=== PATIENT | male | born 1965 | race American Indian/Alaskan Native ===

== ENCOUNTER 2017-02-27 16:59 | Emergency (ER) | payer MEDICARE ==
[~2017-02-27 16:59] MED LIST: AMIDATE IV ONE; QUELICIN ONE
--- NOTE | 2017-02-27 17:17 | Cat Scan Report ---
FINAL REPORT PROCEDURE: CT HEAD/BRAIN WO CON TECHNIQUE: Computerized tomography of the head was performed without contrast material. HISTORY: neuro deficits \T\lt; 6hrs or sx present upon awakening COMPARISON: No prior studies are available for comparison. FINDINGS: No CT evidence of intracranial mass, hemorrhage, acute territorial infarction, or hydrocephalus. The intracranial arteries are symmetric in density. Calvarium is intact. Visualized paranasal sinuses and mastoids are aerated. IMPRESSION: No CT evidence of acute abnormality
[2017-02-27] MEDS ORDERED: NORMODYNE IV ONE ×2 (17:20→17:23)
[2017-02-27 17:28] LABS: Basophils % (Auto) 1.1 % (0.0-1.8); Eosinophils % (Auto) 2.6 % (0.0-4.3); Hematocrit 44.9 % (35.5-45.6); Hemoglobin 14.6 gm/dl (11.8-15.2); Mean Corpuscular HGB Conc 33 % (32-34); Mean Corpuscular Hemoglobin 29 pg (28-32); Mean Corpuscular Volume 89 fl (84-94); Platelet Count 151 K/mm3 (140-440); Red Blood Count 5.05 M/mm3 (3.65-5.03); Red Cell Distribution Width 15.6 % (13.2-15.2); White Blood Count 8.5 K/mm3 (4.5-11.0)
--- NOTE | 2017-02-27 17:29 | Emergency Department Report ---
<JAGDISH PIÑA - Last Filed: 02/27/17 20:14> ED Neuro Deficit HPI - General Chief Complaint: Neuro Symptoms/Deficit Stated Complaint: POSS STROKE Time Seen by Provider: 02/27/17 17:19 Source: family, EMS Mode of arrival: Stretcher Limitations: Altered Mental Status - History of Present Illness Initial Comments: 51-year-old male with a past medical history CHF, CAD, artificial heart valve placement, diabetes, and hypertension presents to the hospital with acute stroke symptoms. states that for 20 p.m. patient has had onset of right arm, right leg weakness, difficulty speaking. Patient is able to nod and follow commands. He is unable to speak fluently and answers yes and no to most questions sometimes inappropriately. He denies any pain at this time. initially stated that patient had a history of a stroke during a recent admission here in January. Medical record reviewed and patient was evaluated for NSTEMI secondary to elevated troponin but had stable cardiac enzymes and a negative stress scan at that time. Patient was also treated for CHF/pulmonary edema. No neurologic workup was performed and no mention of CVA. - Related Data Home Medications: Previous Rx's Medication Instructions Recorded Last Taken Type Aspirin [Aspirin BABY CHEW TAB] 81 mg PO DAILY #30 08/20/13 01/15/17 08:00 Rx Carvedilol [Coreg] 25 mg PO BID #60 tablet 08/20/13 01/15/17 08:00 Rx Isosorbide Mononitrate [Isosorbide 30 mg PO DAILY #30 tab.er.24h 08/20/13 08:00 Rx Mononitrate ER] Furosemide [Lasix] 40 mg PO DAILY #30 tablet 09/17/13 01/15/17 08:00 Rx AtorvaSTATin [Lipitor] 80 mg PO QHS #30 tablet 01/19/17 Unknown Rx Docusate Sodium [Colace CAP] 100 mg PO BID #30 capsule 01/19/17 Unknown Rx hydrALAZINE [Apresoline TAB] 50 mg PO BID #60 tablet 01/19/17 Unknown Rx Allergies/Adverse Reactions: Allergies Allergy/AdvReac Type Severity Reaction Status Date / Time No Known Allergies Allergy Verified 01/15/17 20:55 ED Review of Systems ROS: Stated complaint: POSS STROKE Other details as noted in HPI Comment: Unobtainable due to pts medical conditions (Limited due to patient's inability to communicate) ED Past Medical Hx - Past Medical History Hx Hypertension: Yes Hx Heart Attack/AMI: Yes Hx Congestive Heart Failure: Yes Hx Diabetes: Yes Hx Deep Vein Thrombosis: No Hx Pulmonary Embolism: No Hx Liver Disease: No Hx Renal Disease: Yes (Stage 2) Hx Arthritis: No Hx Seizures: No Hx Kidney Stones: No Hx Asthma: No Hx COPD: No Hx Tuberculosis: No Hx Dementia: No Hx HIV: No Additional medical history: gout neuorpathy edema - Surgical History Hx Coronary Stent: No Hx Open Heart Surgery: Yes (Artificial heart valve placement) Hx Pacemaker: Yes Hx Internal Defibrillator: Yes Hx Cholecystectomy: No Hx Appendectomy: No Hx Breast Surgery: No Additional Surgical History: AICD - Social History Smoking Status: Former Smoker Substance Use Type: None - Medications Home Medications: Home Medications Medication Instructions Recorded Confirmed Last Taken Type Aspirin [Aspirin BABY CHEW TAB] 81 mg PO DAILY #30 08/20/13 02/27/17 01/15/17 08:00 Rx Carvedilol [Coreg] 25 mg PO BID #60 tablet 08/20/13 02/27/17 01/15/17 08:00 Rx Isosorbide Mononitrate [Isosorbide 30 mg PO DAILY #30 tab.er.24h 08/20/1301/15/17 08:00 Rx Mononitrate ER] Furosemide [Lasix] 40 mg PO DAILY #30 tablet 09/17/13 02/27/17 01/15/17 08:00 Rx AtorvaSTATin [Lipitor] 80 mg PO QHS #30 tablet 01/19/17 02/27/17 Unknown Rx Docusate Sodium [Colace CAP] 100 mg PO BID #30 capsule 01/19/17 02/27/17 Unknown Rx hydrALAZINE [Apresoline TAB] 50 mg PO BID #60 tablet 01/19/17 02/27/17 Unknown Rx ED Neuro Physical Exam - General Limitations: Altered Mental Status Suspected Stroke: Yes - Neurological Exam Neurological exam: Present: alert - NIHSS Assessment Interval: Baseline 1a. Level of Consciousness: alert 1b. LOC Questions: answers correctly 1c. LOC Commands: performs tasks correctly 2. Best Gaze: partial gaze palsy 3. Visual: no visual loss 4. Facial Palsy: normal symmetrical movement 5b. Motor Arm Right: no movement 5a. Motor Arm Left: no drift 6a. Motor Leg Left: no drift 6b. Motor Leg Right: no movement 7. Limb Ataxia: present 1 limb 8. Sensory: mild/moderate sensory loss 9. Best Language: mild/moderate aphasia 10. Dysarthria: mild/moderate dysarthria 11. Extinction/Inattention: visual/tactile inattention Total Score: 14 Stroke Severity: Moderate Stroke - Other Other exam information: General: patient is alert, no acute distress Head exam: Atraumatic, normocephalic Eyes exam: Normal appearance ENT: Moist mucous membrane, normal oropharynx Neck exam: Normal inspection, full range of motion Respiratory exam: Mild crackles, mild tachypnea Cardiovascular: Normal rate and rhythm Abdomen: Soft, nondistended, and nontender, with normal bowel sounds, no rebound, or guarding Extremity: Full range of motion normal inspection no deformity Back: Normal Inspection, full range of motion, no tenderness Neurologic: Alert. See NIH stroke scale Psychiatric: normal affect, normal mood Skin: Warm, dry, intact ED Course Vital Signs 02/27/17 02/27/17 02/27/17 17:14 17:17 17:25 Pulse Rate 93 H Pulse Rate [ Left Arm] Respiratory 18 Rate Respiratory Rate [Left Arm] Blood Pressure 188/122 Blood Pressure [Left Arm] Blood Pressure [Left] O2 Sat by Pulse 100 98 90 Oximetry O2 Sat by Pulse Oximetry [Left Arm] 02/27/17 02/27/17 02/27/17 17:28 17:29 17:30 Pulse Rate 92 H Pulse Rate [ Left Arm] Respiratory 18 Rate Respiratory Rate [Left Arm] Blood Pressure 188/122 182/113 Blood Pressure [Left Arm] Blood Pressure [Left] O2 Sat by Pulse 92 99 Oximetry O2 Sat by Pulse Oximetry [Left Arm] 02/27/17 02/27/17 02/27/17 17:35 17:40 17:41 Pulse Rate 89 90 98 H Pulse Rate [ Left Arm] Respiratory 29 H 30 H 20 Rate Respiratory Rate [Left Arm] Blood Pressure 182/116 175/100 175/100 Blood Pressure [Left Arm] Blood Pressure 175/100 [Left] O2 Sat by Pulse 100 99 100 Oximetry O2 Sat by Pulse Oximetry [Left Arm] 02/27/17 02/27/17 02/27/17 17:42 17:45 17:51 Pulse Rate 96 H 90 97 H Pulse Rate [ Left Arm] Respiratory 29 H 38 H Rate Respiratory Rate [Left Arm] Blood Pressure 174/100 175/100 194/99 Blood Pressure [Left Arm] Blood Pressure [Left] O2 Sat by Pulse 100 100 Oximetry O2 Sat by Pulse Oximetry [Left Arm] 02/27/17 02/27/17 02/27/17 17:55 17:56 18:01 Pulse Rate 96 H 96 H 96 H Pulse Rate [ Left Arm] Respiratory 27 H 30 H 33 H Rate Respiratory Rate [Left Arm] Blood Pressure 194/99 168/105 Blood Pressure [Left Arm] Blood Pressure 185/95 [Left] O2 Sat by Pulse 100 99 100 Oximetry O2 Sat by Pulse Oximetry [Left Arm] 02/27/17 02/27/17 02/27/17 18:05 18:10 18:11 Pulse Rate 98 H 103 H 101 H Pulse Rate [ Left Arm] Respiratory 33 H 34 H 30 H Rate Respiratory Rate [Left Arm] Blood Pressure 168/105 170/113 Blood Pressure [Left Arm] Blood Pressure 168/105 [Left] O2 Sat by Pulse 99 95 96 Oximetry O2 Sat by Pulse Oximetry [Left Arm] 02/27/17 02/27/17 02/27/17 18:15 18:20 18:25 Pulse Rate 106 H 109 H 108 H Pulse Rate [ Left Arm] Respiratory 34 H 33 H 31 H Rate Respiratory Rate [Left Arm] Blood Pressure 183/111 182/121 200/116 Blood Pressure [Left Arm] Blood Pressure [Left] O2 Sat by Pulse 92 91 88 Oximetry O2 Sat by Pulse Oximetry [Left Arm] 02/27/17 02/27/17 02/27/17 18:27 18:31 18:40 Pulse Rate 106 H 92 H Pulse Rate [ 107 H Left Arm] Respiratory 37 H 29 H Rate Respiratory 34 H Rate [Left Arm] Blood Pressure 210/111 126/84 Blood Pressure 182/110 [Left Arm] Blood Pressure [Left] O2 Sat by Pulse 87 92 Oximetry O2 Sat by Pulse 89 Oximetry [Left Arm] 02/27/17 02/27/17 02/27/17 18:42 18:51 18:57 Pulse Rate 99 H Pulse Rate [ 92 H 98 H Left Arm] Respiratory 26 H Rate Respiratory 18 24 Rate [Left Arm] Blood Pressure 140/98 Blood Pressure 175/85 140/98 [Left Arm] Blood Pressure [Left] O2 Sat by Pulse 93 Oximetry O2 Sat by Pulse 99 92 Oximetry [Left Arm] 02/27/17 02/27/17 02/27/17 19:00 19:06 19:12 Pulse Rate 96 H Pulse Rate [ 96 H Left Arm] Respiratory 26 H 24 Rate Respiratory 24 Rate [Left Arm] Blood Pressure 160/86 Blood Pressure 157/94 [Left Arm] Blood Pressure [Left] O2 Sat by Pulse 92 Oximetry O2 Sat by Pulse 94 Oximetry [Left Arm] 02/27/17 02/27/17 02/27/17 19:27 19:42 19:57 Pulse Rate Pulse Rate [ 99 H 94 H 93 H Left Arm] Respiratory Rate Respiratory 25 H 23 24 Rate [Left Arm] Blood Pressure Blood Pressure 147/97 146/84 133/88 [Left Arm] Blood Pressure [Left] O2 Sat by Pulse Oximetry O2 Sat by Pulse 97 96 97 Oximetry [Left Arm] 02/27/17 02/27/17 02/27/17 20:10 20:12 20:42 Pulse Rate 95 H Pulse Rate [ 97 H 89 Left Arm] Respiratory Rate Respiratory 18 22 Rate [Left Arm] Blood Pressure Blood Pressure 145/88 129/88 [Left Arm] Blood Pressure [Left] O2 Sat by Pulse 96 Oximetry O2 Sat by Pulse 96 95 Oximetry [Left Arm] - Reevaluation(s) Reevaluation #1: Once it was confirmed that patient did not have a recent stroke cardiac drip initiated after labetalol placed to control blood pressure. Goal of systolic less than 185 diastolic less than 100 and oriented to qualify for TPA. informed and agreeable to TPA administration. After TPA administration patient became tachypnea, audible rails, and diaphoretic. Patient hypoxic on room air and required supplemental oxygenation. Chest x-ray showed pulmonary edema. Decision made to intubate patient so that further imaging could be obtained and so the patient will be more stable for possible [place] transfer. Family informed prior to intubation. 02/27/17 19:57 I was under the impression of patient went directly to CT after intubation. Patient still awaiting CT at this time. Case discussed with Dr. Enamorado and images will be sent upon CT completion - Consultations Consultation #1: 02/27/17 17:41 I have been speaking [id number] to Dr. Madai neurolgy regarding patient's case, initially was insisting a patient had a heart attack and a stroke upon last admission here. Previous medical record reviewed. Patient had respiratory distress due to CHF and was initially thought to have a non-ST elevation due to mild elevation in troponin. Troponin values were elevated but stable with repeat blood draws. Patient had a stress test that was negative for acute ischemia. Patient did not receive to cardiac catheterization. Patient did not receive any imaging of the brain suggestive that he was being worked up for stroke. Once patient's was re-confronted with these results she then states that she was confusing a clot in the heart as a stroke and did not understand that meant a clot in the brain. We have decided that patient may receive TPA at this time was blood pressure has improved to appropriate level. TPA has been ordered. Dr. Aj also spoke to [facility] [place] to see if they would accept patient for transfer for probable significant MCA stroke. 02/27/17 18:01 Dr. Aj spoke to neurology attending at [facility] full is not definitively sure that patient's having a MCA stroke based on CT. Recommends a CT angiogram to determine if patient is a candidate for transfer and intermittent - Intubation Time Out Performed: Yes Sedative: Etomidate Mg Given: 20 Paralytic: Succinylcholine Mg Given: 100 Laryngoscope: Lionel Size: 3 ET Tube Size: 7.5 Tube Secured Depth (cm): 20 Tube Secured Location: teeth Tube Placement Confirmation: visualized tube passing t, equal breath sounds bilat, no breath sounds over epi, confirmation by capnometr Patient Tolerated Procedure: well Intubation Complications: none - Lab Data Result diagrams: 02/27/17 17:10 02/27/17 17:10 Lab Results 02/27/17 02/27/17 02/27/17 Range/Units 17:10 17:10 17:10 WBC 8.5 (4.5-11.0) K/mm3 RBC 5.05 H (3.65-5.03) M/mm3 Hgb 14.6 (11.8-15.2) gm/dl Hct 44.9 (35.5-45.6) % MCV 89 (84-94) fl MCH 29 (28-32) pg MCHC 33 (32-34) % RDW 15.6 H (13.2-15.2) % Plt Count 151 (140-440) K/mm3 Lymph % (Auto) 19.5 (13.4-35.0) % Hamblen % (Auto) 12.2 H (0.0-7.3) % Eos % (Auto) 2.6 (0.0-4.3) % Baso % (Auto) 1.1 (0.0-1.8) % Lymph # 1.7 (1.2-5.4) K/mm3 Hamblen # 1.0 H (0.0-0.8) K/mm3 Eos # 0.2 (0.0-0.4) K/mm3 Baso # 0.1 (0.0-0.1) K/mm3 Seg Neutrophils % 64.6 (40.0-70.0) % Seg Neutrophils # 5.5 (1.8-7.7) K/mm3 PT 16.4 H (12.2-14.9) Sec. INR 1.25 H (0.87-1.13) APTT 29.9 (24.2-36.6) Sec. Thrombin Time (15.1-19.6) Sec. POC ABG pH (7.35-7.45) POC ABG pCO2 (35-45) POC ABG pO2 (80-105) POC ABG HCO3 POC ABG Total CO2 POC ABG O2 Sat POC ABG Base Excess FiO2 % Sodium 148 H (137-145) mmol/L Potassium 3.6 (3.6-5.0) mmol/L Chloride 114.2 H (98-107) mmol/L Carbon Dioxide 20 L (22-30) mmol/L Anion Gap 17 mmol/L BUN 13 (9-20) mg/dL Creatinine 0.8 (0.8-1.5) mg/dL Estimated GFR > 60 ml/min BUN/Creatinine Ratio 16.25 % Glucose 95 (75-100) mg/dL POC Glucose (70-105) Calcium 6.4 L (8.4-10.2) mg/dL Troponin T 0.144 H* (0.00-0.029) ng/mL Triglycerides 79 (2-149) mg/dL Cholesterol 96 (50-199) mg/dL LDL Cholesterol Direct 53 (50-130) mg/dL HDL Cholesterol 28 L (40-59) mg/dL Cholesterol/HDL Ratio 3.42 % 0802/27/17 02/27/17 Range/Units 17:10 17:22 20:28 WBC (4.5-11.0) K/mm3 RBC (3.65-5.03) M/mm3 Hgb (11.8-15.2) gm/dl Hct (35.5-45.6) % MCV (84-94) fl MCH (28-32) pg MCHC (32-34) % RDW (13.2-15.2) % Plt Count (140-440) K/mm3 Lymph % (Auto) (13.4-35.0) % Hamblen % (Auto) (0.0-7.3) % Eos % (Auto) (0.0-4.3) % Baso % (Auto) (0.0-1.8) % Lymph # (1.2-5.4) K/mm3 Hamblen # (0.0-0.8) K/mm3 Eos # (0.0-0.4) K/mm3 Baso # (0.0-0.1) K/mm3 Seg Neutrophils % (40.0-70.0) % Seg Neutrophils # (1.8-7.7) K/mm3 PT (12.2-14.9) Sec. INR (0.87-1.13) APTT (24.2-36.6) Sec. Thrombin Time 15.1 (15.1-19.6) Sec. POC ABG pH 7.344 L (7.35-7.45) POC ABG pCO2 46.8 H (35-45) POC ABG pO2 68 L (80-105) POC ABG HCO3 25.5 POC ABG Total CO2 27 POC ABG O2 Sat 92 POC ABG Base Excess 0 FiO2 100 % Sodium (137-145) mmol/L Potassium (3.6-5.0) mmol/L Chloride (98-107) mmol/L Carbon Dioxide (22-30) mmol/L Anion Gap mmol/L BUN (9-20) mg/dL Creatinine (0.8-1.5) mg/dL Estimated GFR ml/min BUN/Creatinine Ratio % Glucose (75-100) mg/dL POC Glucose 124 H (70-105) Calcium (8.4-10.2) mg/dL Troponin T (0.00-0.029) ng/mL Triglycerides (2-149) mg/dL Cholesterol (50-199) mg/dL LDL Cholesterol Direct (50-130) mg/dL HDL Cholesterol (40-59) mg/dL Cholesterol/HDL Ratio % - EKG Data -: EKG Interpreted by Me (ventricular paced rhythm rate 90) - Radiology Data Radiology results: report reviewed (CT head: No acute findings) CT angio head and neck pending - Medical Decision Making Patient would need admission to the hospital for acute stroke with significant neurologic deficits. CT angiogram to determine whether or not patient is a candidate for transfer to [facility] for acute intervention. TPA has been initiated. Case need to be signed out to Dr. Burgos to follow up on CT angiogram and recontacted Dr. Enamorado at [place] to discuss possible transfer. If Patient is not a candidate for transfer he will need to be admitted here. Patient is on cardene drip for blood pressure control, propofol for sedation, received Lasix IV for CHF/pulmonary edema, and intubated for airway protection and pulmonary edema. Bustamante catheter was not placed prior to TPA therefore nurse informed to place condom catheter - Differential Diagnosis hemorrhagic CVA, ischemic CVA, cephalopathy, conversion disorder Critical Care Time: Yes Critical care time in (mins) excluding proc time.: 65 Critical care attestation.: If time is entered above; I have spent that time in minutes in the direct care of this critically ill patient, excluding procedure time. ED Disposition Clinical Impression: Acute CVA (cerebrovascular accident), Hypertensive emergency, CHF exacerbation , S/P CABG (coronary artery bypass graft), Acute on chronic systolic (congestive ) heart failure, AICD (automatic cardioverter/defibrillator) present, Hyperlipemia, Obesity Disposition: DC/TX-70 ANOTHER TYPE HLTHCARE Condition: Stable Instructions: Hypertension (ED) Referrals: PRIMARY CARE, [Primary Care Provider] - 3-5 Days Time of Disposition: 20:12 (s/o to DR Burgos) <SMILEY BURGOS - Last Filed: 02/27/17 22:49> ED Course - Reevaluation(s) Reevaluation #2: 02/27/17 20:51 Dr. Aj, from tele-neurology called back after he reviewed the brain CTA informed that the patient does not have a clots and he informed that patient needed to be admitted to the hospital for a stroke workup. Reevaluation #3: 02/27/17 21:[address] Sullivan hospitalist on-call, he stated that he cannot admit the patient because we do not have neurology coverage and he advised patient needed to be transferred to [facility] for stroke workup. Transferred to [facility] initiated. Reevaluation #4: 02/27/17 21:43 Dr. Joseph from [facility] called back and stated that their neuro-ICU is full and can not accept the patient. Initiated transfer to [facility] Reevaluation #5: 02/27/17 22:[address] Garcia at [place] ICU he accepted the patient to be transfer to his care. Patient vital signs stable for transfer. Discussed with the family the patient would be transferred to [place] for further workup for his a stroke. family agreed - Lab Data Result diagrams: 02/27/17 17:10 02/27/17 17:10 Critical Care Time: Management patient in the ER speaking to doctors government contracts manager ,arranging transfer transfer to [place]. I spent 60 minutes during that. ED Disposition Is pt being admited?: No Time of Disposition: 22:49
[2017-02-27] MEDS ORDERED: ACTIVASE ONE (17:36)
[2017-02-27 17:39] LABS: INR 1.25 (0.87-1.13)
[2017-02-27 17:40] LABS: Partial Thromboplastin Time 29.9 Sec. (24.2-36.6)
[2017-02-27 17:41] LABS: Anion Gap 17 mmol/L; BUN/Creatinine Ratio 16.25; Blood Urea Nitrogen 13 mg/dL (9-20); Calcium 6.4 mg/dL (8.4-10.2); Carbon Dioxide 20 mmol/L (22-30); Chloride 114.2 mmol/L (98-107); Glucose 95 mg/dL (75-100); Potassium 3.6 mmol/L (3.6-5.0); Sodium 148 mmol/L (137-145)
[2017-02-27] MEDS ORDERED: NACL 0.9% IV ONE (17:41)
[2017-02-27] MEDS ORDERED: ACTIVASE IV ONE ×2 (17:41)
[2017-02-27] MEDS ORDERED: CARDENE 50 MG in NACL 0.9% 250ML 230 ML IV SCH (18:00)
[2017-02-27 18:10] LABS: Cholesterol 96 mg/dL (50-199); HDL Cholesterol 28 mg/dL (40-59); LDL Cholesterol,Direct 53 mg/dL (50-130); Triglycerides 79 mg/dL (2-149)
[2017-02-27] MEDS ORDERED: LASIX IV ONE (18:21)
[2017-02-27] MEDS ORDERED: VASELINE LIP THERAPY TP PRN (18:46)
[2017-02-27] MEDS ORDERED: ARTIFICIAL TEARS OPHTH OINT OU PRN (18:46)
[2017-02-27] MEDS ORDERED: DIPRIVAN 10 MG/ML 1,000 MG/100 ML BOTTLE IV ONE (18:48)
[2017-02-27] MEDS ORDERED: NACL 0.9% 500 ML IV SCH (19:00)
[2017-02-27] MEDS ORDERED: ATIVAN 100 MG in NACL 0.9% 50 ML, VIAFLEX EMPTY CONTAINER 0 ML IV SCH (19:00)
[2017-02-27] MEDS: DIPRIVAN 10 MG/ML 1,000 MG/100 ML BOTTLE IV SCH ×2 (19:06→23:28)
[2017-02-27 20:48] LABS: ISTAT Base Excess 0; ISTAT HCO3 25.5; ISTAT PCO2 46.8 (35-45); ISTAT PH 7.344 (7.35-7.45); ISTAT PO2 68 (80-105); ISTAT SO2 92; ISTAT TCO2 27
--- NOTE | 2017-02-27 20:55 | Cat Scan Report ---
FINAL REPORT PROCEDURE: CT ANGIO NECK TECHNIQUE: Computerized tomographic angiography of the neck was performed after the IV injection of iodinated nonionic contrast including image processing. The image data was postprocessed using 2-dimensional multiplanar reformatted (MPR) and 3-dimensional (MIP and/or volume rendered) techniques. HISTORY: right sided weakness, dysarthria COMPARISON: No prior studies are available for comparison. Note: Assessment of carotid artery stenosis is based on measurement of the distal internal carotid artery diameter as the denominator for stenosis calculations and the [place] Citizen Symptomatic Carotid Endarterectomy Trial (NASCET) stenosis criteria . CPT 3100F FINDINGS: There are extensive bilateral apical pulmonary opacities, not fully evaluated. Endotracheal tube is noted. Non vascular cervical structures: Degenerative changes of the cervical spine are noted. Aortic arch: Not included on the study. Right carotid artery: Normal . Left carotid artery: Normal . Vertebral arteries: Dominant right vertebral artery is present. No focal stenosis or occlusion is seen. IMPRESSION: No arterial stenosis or occlusion is identified
--- NOTE | 2017-02-27 21:07 | Cat Scan Report ---
FINAL REPORT PROCEDURE: CT ANGIO HEAD TECHNIQUE: Computerized tomographic angiography of the head was performed after the IV injection of iodinated nonionic contrast including image processing. The image data was postprocessed using 2-dimensional multiplanar reformatted (MPR) and 3-dimensional (MIP and/or volume rendered) techniques. HISTORY: right sided weakness, dysarthria COMPARISON: No prior studies are available for comparison. FINDINGS: Cerebrum: No evidence of hemorrhage, acute ischemia or mass. Cerebellum: No evidence of hemorrhage, acute ischemia or mass. Subarachnoid spaces and ventricles: Normal. Intracranial vessels: Carotid siphon: Bilaterally tortuous Anterior cerebral: Normal. Middle cerebral: Normal. Posterior cerebral: origin of the left posterior cerebral artery Vertebral arteries including basilar: Dominant right vertebral artery is present Aneurysms: None. Dural sinuses: Normal. IMPRESSION: No focal arterial stenosis or occlusion
[2017-02-28 00:21] VITALS: BP 151/90
--- NOTE | 2017-02-28 07:53 | XRay Report ---
Single view chest: Compared to 01/20/17. History: CVA. Hypoxia. Findings: Marked cardiomegaly. Trachea is midline. Stable pacemaker. Pulmonary venous congestion. No consolidation the left CP angle obscured by a large heart. Impression: Cardiomegaly with mild pulmonary venous congestion.
--- NOTE | 2017-02-28 07:54 | XRay Report ---
Single view chest: Compared to 02/27/17. History: Postintubation. Findings: Marked cardiomegaly. Stable pacemaker. Tip of endotracheal tube in normal position. Pulmonary venous congestion with bilateral airspace opacities being more pronounced in the right side. Normal CP angles. Impression: Probable pulmonary edema/CHF.
== END 2017-02-28 00:46 | disposition other institution (70) ==
LOC: ED 16:59
DX: I63.9 Cerebral infarction, unspecified (principal); I10 Essential (primary) hypertension; I50.9 Heart failure, unspecified; Z95.1 Presence of aortocoronary bypass graft; Z95.810 Presence of automatic (implantable) cardiac defibrillator; E78.5 Hyperlipidemia, unspecified
CPT/HCPCS: 31500; 36415; 37212; 70450; 70496; 70498; 71010; 80048; 80061; 82803; 82962; 84484; 85025; 85610; 85670; 85730; 93005; 93010; 94002; 96365; 96366; 96375; 99291; J0330; J1940; J2704; J2997; J7050; Q9967

== ENCOUNTER 2018-09-23 16:56 | Emergency (ER) | payer MEDICARE ==
--- NOTE | 2018-09-23 17:13 | Emergency Department Report ---
HPI - General Time Seen by Provider: 09/23/18 17:03 - HPI HPI: Charge nurse triage /Room 3 The patient is a 52-year-old male presented with a chief complaint of left-sided weakness. The patient states his last normal time was 04:00 this morning when he went to sleep. The patient states when he awakened at approximately 12:30 went to the bathroom and noticed he could not feel the cold water on his left hand. EMS was called and noticed slurred speech and left-sided weakness. The patient complains of numbness to his left side and states she is unable to see on the left Location: [facility] Duration: [See above] Quality: Weakness Severity: Moderate Modifying factors: [see above] Context: [see above] Mode of transportation: [not driving] ED Past Medical Hx - Past Medical History Hx Hypertension: Yes Hx Heart Attack/AMI: Yes Hx Congestive Heart Failure: Yes Hx Diabetes: Yes Hx Renal Disease: Yes (Stage 2) Additional medical history: gout neuorpathy edema, AAA ~3 cm early 2018 - Surgical History Hx Open Heart Surgery: Yes (Artificial heart valve placement) Hx Pacemaker: Yes Hx Internal Defibrillator: Yes Additional Surgical History: AICD - Family History Family history: no significant - Social History Smoking Status: Former Smoker Substance Use Type: None - Medications Home Medications: Home Medications Medication Instructions Recorded Confirmed Last Taken Type Aspirin [Aspirin BABY CHEW TAB] 81 mg PO DAILY #30 08/20/13 09/23/18 09/22/18 Rx Carvedilol [Coreg] 25 mg PO BID #60 tablet 08/20/13 09/23/18 09/22/18 Rx Isosorbide Mononitrate [Isosorbide 30 mg PO DAILY #30 tab.er.24h 08/20/13 09/23/18 01/15/17 08:00 Rx Mononitrate ER] Furosemide [Lasix] 40 mg PO DAILY #30 tablet 09/17/13 09/23/18 01/15/17 08:00 Rx AtorvaSTATin [Lipitor] 80 mg PO QHS #30 tablet 01/19/17 09/23/18 Unknown Rx amLODIPine [Norvasc] 5 mg PO DAILY 09/23/18 09/23/18 09/22/18 History cloNIDine-TTS PATCH [Catapres-Tts 1 patch TD Q7D 09/23/18 09/23/18 09/21/18 History Patch] hydrALAZINE [Apresoline TAB] 50 mg PO TID 09/23/18 09/23/18 09/22/18 History metFORMIN [Glucophage] 500 mg PO BID 09/23/18 09/23/18 Unknown History ED Review of Systems ROS: Stated complaint: NEURO ISSUES Other details as noted in HPI Constitutional: no symptoms reported Eyes: vision change ENT: denies: throat pain Respiratory: no symptoms reported Cardiovascular: denies: chest pain Endocrine: no symptoms reported Gastrointestinal: denies: abdominal pain Genitourinary: denies: dysuria Musculoskeletal: denies: back pain Neurological: weakness, numbness Physical Exam - Physical Exam Physical Exam: GENERAL: The patient is well-developed well-nourished male lying on stretcher with left-sided extinction. [] HEENT: Normocephalic. Atraumatic. Extraocular motions are intact. Patient has moist mucous membranes. NECK: Supple. Trachea midline CHEST/LUNGS: Clear to auscultation. There is no respiratory distress noted. HEART/CARDIOVASCULAR: Regular. There is no tachycardia. There is no gallop rub or murmur. ABDOMEN: Abdomen is soft, nontender. Patient has normal bowel sounds. There is no abdominal distention. SKIN: There is no rash. There is no edema. There is no diaphoresis. NEURO: The patient is awake, alert, and oriented. The patient is cooperative. Cranial nerves III through XII grossly intact. The patient has normal speech. Patient exhibits weakness in the left upper extremity and left lower extremity. Patient exhibits extinction to the left side. Patient has decreased sensation to the left side. MUSCULOSKELETAL: There is no evidence of acute injury. NIHSS= 7 LOC a. Alert= 0 Not alert but arousable to minor stimuli=1 Not alert requires repeated or strong stimuli to move= 2 Responds only reflex motor or unresponsive=3 b. asks month and age answers both correctly= 0 answers one correctly= 1 answers neither correctly= 2 Best Gaze normal= 0 (+)abnormal in one or both but forced deviation or total paresis absent= 1 forced deviation or total gaze paresis= 2 Visual no visual loss= 0 (+)partial hemianopia= 1 complete hemianopia= 2 bilateral hemianopia= 3 Facial Palsy normal= 0 minor paralysis= 1 partial paralysis= 2 complete paralysis= 3 Motor Arm no drift= 0 (+)drift before 10 secs but doesnt hit bed= 1 some effort against gravity= 2 no effort against gravity= 3 no movement= 4 Motor leg no drift= 0 drift before 5 secs but doesnt hit bed= 1 drifts to bed before 5 secs= 2 no effort against gravity= 3 no movement= 4 Limb ataxia absent=0 (+)present in one limb= 1 present in two limbs= 2 Sensory normal= 0 mild sensory loss= 1 (+)severe (unaware of being touched)= 2 Best language mild/some loss of fluency= 1 severe= 2 mute= 3 Dysarthria normal= 0 slurs some words= 1 severe/unintelligible= 2 Extinction and Inattention no abnormality= 0 (+)visual, tactile, auditory or personal inattention= 1 profound (doesnt recognize own hand or orients to only one side= 2 ED Course - Consultations Consultation #1: 09/23/18 17:26 Tele-neurology paged 09/23/18 17:[address] Hebert- recommends CTA brain/neck. Call back with results Consultation #2: 09/23/18 21:52 Tele-neurology paged 09/23/18 22:[address] Hebert-will evaluate patient---> will contact [facility] for possible transfer Consultation #3: 09/23/18 23:46 Case discussed with [place] neurologist Dr. Wiley- will accept patient in transfer to [place]. Possible thrombectomy ED Medical Decision Making - Lab Data Result diagrams: 09/23/18 17:15 09/23/18 17:15 Laboratory Tests 09/23/18 09/23/18 09/23/18 17:15 17:15 17:15 WBC 10.9 RBC 6.22 H Hgb 18.5 H Hct 55.4 H MCV 89 MCH 30 MCHC 33 RDW 16.3 H Plt Count 208 Lymph % (Auto) 11.0 L [place] % (Auto) 8.7 H Eos % (Auto) 0.4 Baso % (Auto) 0.5 Lymph # 1.2 [place] # 0.9 H Eos # 0.0 Baso # 0.1 Seg Neutrophils % 79.4 H Seg Neutrophils # 8.7 H PT 15.6 H INR 1.17 H APTT 27.0 Thrombin Time Sodium 135 L Potassium 4.1 Chloride 96.3 L Carbon Dioxide 24 Anion Gap 19 BUN 22 H Creatinine 1.2 Estimated GFR > 60 BUN/Creatinine Ratio 18 Glucose 119 H POC Glucose Calcium 9.6 Troponin T 0.447 H* Triglycerides 107 Cholesterol 182 LDL Cholesterol Direct 131 H HDL Cholesterol 44 Cholesterol/HDL Ratio 4.13 09/23/18 09/23/18 17:15 17:22 WBC RBC Hgb Hct MCV MCH MCHC RDW Plt Count Lymph % (Auto) [place] % (Auto) Eos % (Auto) Baso % (Auto) Lymph # [place] # Eos # Baso # Seg Neutrophils % Seg Neutrophils # PT INR APTT Thrombin Time 21.0 H Sodium Potassium Chloride Carbon Dioxide Anion Gap BUN Creatinine Estimated GFR BUN/Creatinine Ratio Glucose POC Glucose 108 H Calcium Troponin T Triglycerides Cholesterol LDL Cholesterol Direct HDL Cholesterol Cholesterol/HDL Ratio - EKG Data -: EKG Interpreted by Me Rate: normal - EKG Data When compared to previous EKG there are: previous EKG unavailable Interpretation: nonspecific ST-T wave soledad (T-wave inversion in leads 1, aVL, V2), other (paced rhythm) - Radiology Data Radiology results: report reviewed (CT head, CTA brain, CTA neck), image reviewed (CT head, CTA brain, CTA neck) [place] [address] Cat Scan Report Signed Patient: KIP AREVALO MR#: [id number] : 1965 Acct:[id number] Age/Sex: 52 / M ADM Date: 09/23/18 Loc: ED Attending Dr: Ordering Physician: ABBIE PORTILLO MD Date of Service: 09/23/18 Procedure(s): CT angio head Accession Number(s): [id number] cc: ABBIE PORTILLO MD PROCEDURE: CT ANGIO HEAD HISTORY: left sided weakness, inattention FINDINGS: Contrast-enhanced CT angiography of the head was performed following the intravenous administration of iodinated contrast. Data was reformatted into the sagittal and coronal planes. Comparison is made to the unenhanced head CT of earlier in the day. In the posterior fossa both vertebral arteries are patent. The basilar artery is patent. Both posterior cerebral arteries are identified and appear widely patent. In the anterior circulation, the internal carotid arteries appear patent. The M1 segment of the right middle cerebral artery is patent. The middle cerebral artery appears occluded at the junction of the M1 and M2 segments, axial images 21-22, sagittal images 112-113. There is hypodensity in the expected location of the right middle cerebral artery involving most of the right temporal lobe and a portion of the right inferior parietal lobe, axial image 23, approximately 4.4 x 8.0 cm, consistent with infarct. The left middle cerebral artery appears patent. The anterior cerebral arteries are patent. IMPRESSION: Occlusion of right middle cerebral artery at junction of M1 and M2 segments with right MCA distribution infarct. This document is electronically signed by Isaac Grant MD., September 23 2018 09:43:16 PM ET Transcribed By: GINNY Dictated By: ISAAC GRANT MD Electronically Authenticated By: ISAAC GRANT MD Signed Date/Time: 09/23/182144 DD/ 06 TD/TT: 09/23/181907 [facility] [address] [place] [address] Cat Scan Report Signed Patient: KIP AREVALO MR#: [id number] : 1965 Acct:[id number] Age/Sex: 52 / M ADM Date: 09/23/18 Loc: ED Attending Dr: Ordering Physician: ABBIE PORTILLO MD Date of Service: 09/23/18 Procedure(s): CT angio neck Accession Number(s): [id number] cc: ABBIE PORTILLO MD PROCEDURE: CT ANGIO NECK TECHNIQUE: HISTORY: left sided weakness, inattention FINDINGS: Contrast-enhanced CT angiography of the neck was performed following the intravenous administration of iodinated contrast. Sagittal and coronal minute three- dimensional reformatted images were generated. These images demonstrate that the pulmonary apices appear clear. There is dilation of the ascending thoracic aorta, 4.5 cm. There is no dissection identified. On the right, the common carotid, internal carotid, external carotid and vertebral arteries appear widely patent. There is minimal plaque in the right proximal internal carotid artery without stenosis identified. On the left, the common carotid, internal carotid, external carotid and vertebral arteries are widely patent. No plaque is seen. The thyroid gland is unremarkable. The mastoid air cells and middle ears appear clear. There is a small right maxillary polyp versus mucous retention cyst. There is no evidence of acute sinusitis. There are degenerative changes at C1-C2 articulation as well as anterior endplate degenerative change at C5-C6. The prevertebral soft tissues are within normal limits. A head CTA has been performed and will be reported separately. IMPRESSION: No stenosis of greater than 50% is seen in the cervical arterial vasculature This document is electronically signed by Isaac Grant MD., September 23 2018 09:37:56 PM ET Transcribed By: GINNY Dictated By: ISAAC GRANT MD Electronically Authenticated By: ISAAC GRANT MD Signed Date/Time: 09/23/182139 DD/ 03 TD/TT: 09/23/181904 [facility] [address] [place] [address] Cat Scan Report Signed with Addenda Patient: KIP AREVALO MR#: [id number] : 1965 Acct:[id number] Age/Sex: 52 / M ADM Date: 09/23/18 Loc: ED Attending Dr: Ordering Physician: ABBIE PORTILLO MD Date of Service: 09/23/18 Procedure(s): CT head/brain wo con Accession Number(s): [id number] cc: ABBIE PORTILLO MD ADDENDUM ADDENDUM: CRITICAL RESULT: These NEGATIVE findings were given directly to Dr. Portillo by the [facility] at 5:23 PM EST on 09/23/2018 . This document is electronically signed by Zaida Meyers MD., September 23 2018 05:34:30 PM ET Addendum Transcribed By: [facility] Addendum Dictated By: ZAIDA MEYERS MD Addendum Electronically Authenticated By: ZAIDA MEYERS MD Addendum Signed Date/Time: 09/23/18 1736 DD/ TD/TT: 09/23/18 PROCEDURE: CT HEAD/BRAIN WO CON TECHNIQUE: Computerized tomography of the head was performed without contrast material. Imaging was obtained in axial increments. Sagittal and coronal reconstruction was also obtained. CT DOSE LENGTH PRODUCT: 920.48 mGycm HISTORY: neuro deficits <6hrs or sx present upon awakening COMPARISONS: None . FINDINGS: The ventricular system is normal in size and configuration. There is no evidence for parenchymal volume loss. Small area of low density in the periventricular white matter of the left frontal region, likely an area of small vessel ischemic changes. There is no evidence for mass lesion, mass effect, midline shift, acute intracranial hemorrhage, or acute ischemia/ infarction. No evidence for acute skull fracture is seen. Scalp swelling over the posterior occipital region along midline is noted. Visualized paranasal sinuses are clear. IMPRESSION: 1. Scalp swelling over the posterior midline occipital region 2. Small area of low density in the periventricular white matter along the left frontal lobe. Findings are likely consistent with small vessel ischemic changes. Age of these findings is indeterminate though likely not acute. This document is electronically signed by Zaida Meyers MD., September 23 2018 05:21:23 PM ET Transcribed By: [facility] Dictated By: ZAIDA MEYERS MD Electronically Authenticated By: ZAIDA MEYERS MD Signed Date/Time: 09/23/181723 DD/ 14 TD/TT: 09/23/181715 - Differential Diagnosis CVA Critical Care Time: Yes Critical care time in (mins) excluding proc time.: 60 Critical care attestation.: If time is entered above; I have spent that time in minutes in the direct care of this critically ill patient, excluding procedure time. ED Disposition Clinical Impression: Acute CVA (cerebrovascular accident) Disposition: DC/[place]-70 ANOTHER TYPE [facility]THCARE Is pt being admited?: No Does the pt Need Aspirin: No Condition: Serious Referrals: REE RIOJAS MD [Primary Care Provider] - 3-5 Days Time of Disposition: 23:48 (awaiting transport)
--- NOTE | 2018-09-23 17:24 | Cat Scan Report ---
PROCEDURE: CT HEAD/BRAIN WO CON TECHNIQUE: Computerized tomography of the head was performed without contrast material. Imaging was obtained in axial increments. Sagittal and coronal reconstruction was also obtained. CT DOSE LENGTH PRODUCT: 920.48 mGycm HISTORY: neuro deficits <6hrs or sx present upon awakening COMPARISONS: None . FINDINGS: The ventricular system is normal in size and configuration. There is no evidence for parenchymal volu me loss. Small area of low density in the periventricular white matter of the left frontal region, li hal an area of small vessel ischemic changes. There is no evidence for mass lesion, mass effect, midline shift, acute intracranial hemorrhage, or a cute ischemia/ infarction. No evidence for acute skull fracture is seen. Scalp swelling over the posterior occipital region jade g midline is noted. Visualized paranasal sinuses are clear. IMPRESSION: 1. Scalp swelling over the posterior midline occipital region 2. Small area of low density in the periventricular white matter along the left frontal lobe. Finding s are likely consistent with small vessel ischemic changes. Age of these findings is indeterminate th ough likely not acute. This document is electronically signed by Zaida Meyers MD., September 23 2018 05:21:23 PM ET
[2018-09-23 17:32] LABS: Basophils # (Auto) 0.1 K/mm3 (0.0-0.1); Basophils % (Auto) 0.5 % (0.0-1.8); Eosinophils % (Auto) 0.4 % (0.0-4.3); Hematocrit 55.4 % (35.5-45.6); Hemoglobin 18.5 gm/dl (11.8-15.2); Lymphocytes # (Auto) 1.2 K/mm3 (1.2-5.4); Mean Corpuscular HGB Conc 33 % (32-34); Mean Corpuscular Volume 89 fl (84-94); Monocytes # (Auto) 0.9 K/mm3 (0.0-0.8); Monocytes % (Auto) 8.7 % (0.0-7.3); Platelet Count 208 K/mm3 (140-440); Red Blood Count 6.22 M/mm3 (3.65-5.03); Red Cell Distribution Width 16.3 % (13.2-15.2)
[2018-09-23 17:39] LABS: INR 1.17 (0.87-1.13)
[2018-09-23 17:44] LABS: BUN/Creatinine Ratio 18; Blood Urea Nitrogen 22 mg/dL (9-20); Calcium 9.6 mg/dL (8.4-10.2); Hemolysis Index 20
[2018-09-23] MEDS ORDERED: ASPIRIN PO ONE (17:49)
[2018-09-23 18:03] LABS: Chol/HDL Ratio 4.13 %; HDL Cholesterol 44 mg/dL (40-59); LDL Cholesterol,Direct 131 mg/dL (50-130)
--- NOTE | 2018-09-23 21:40 | Cat Scan Report ---
PROCEDURE: CT ANGIO NECK TECHNIQUE: HISTORY: left sided weakness, inattention FINDINGS: Contrast-enhanced CT angiography of the neck was performed following the intravenous admini stration of iodinated contrast. Sagittal and coronal minute three-dimensional reformatted images were generated. These images demonstrate that the pulmonary apices appear clear. There is dilation of the ascending thoracic aorta, 4.5 cm. There is no dissection identified. On the right, the common carotid, internal carotid, external carotid and vertebral arteries appear wi ely patent. There is minimal plaque in the right proximal internal carotid artery without stenosis i dentified. On the left, the common carotid, internal carotid, external carotid and vertebral arteries are widely patent. No plaque is seen. The thyroid gland is unremarkable. The mastoid air cells and middle ears appear clear. There is a small right maxillary polyp versus muc ous retention cyst. There is no evidence of acute sinusitis. There are degenerative changes at C1-C2 articulation as well as anterior endplate degenerative change at C5-C6. The prevertebral soft tissues are within normal limits. A head CTA has been performed and will be reported separately. IMPRESSION: No stenosis of greater than 50% is seen in the cervical arterial vasculature This document is electronically signed by Isaac Grant MD., September 23 2018 09:37:56 PM ET
--- NOTE | 2018-09-23 21:45 | Cat Scan Report ---
PROCEDURE: CT ANGIO HEAD HISTORY: left sided weakness, inattention FINDINGS: Contrast-enhanced CT angiography of the head was performed following the intravenous admini stration of iodinated contrast. Data was reformatted into the sagittal and coronal planes. Comparison is made to the unenhanced head CT of earlier in the day. In the posterior fossa both vertebral arteries are patent. The basilar artery is patent. Both posteri or cerebral arteries are identified and appear widely patent. In the anterior circulation, the internal carotid arteries appear patent. The M1 segment of the right middle cerebral artery is patent. The middle cerebral artery appears occluded at the junction of the M1 and M2 segments, axial images 21-22, sagittal images 112-113. There is hypodensity in the expecte d location of the right middle cerebral artery involving most of the right temporal lobe and a portio n of the right inferior parietal lobe, axial image 23, approximately 4.4 x 8.0 cm, consistent with in farct. The left middle cerebral artery appears patent. The anterior cerebral arteries are patent. IMPRESSION: Occlusion of right middle cerebral artery at junction of M1 and M2 segments with right MCA distributi on infarct. This document is electronically signed by Isaac Grant MD., September 23 2018 09:43:16 PM ET
[2018-09-24] MEDS ORDERED: NACL 0.9% 1000 ML 1,000 ML ONE (00:17)
[2018-09-24] MEDS ORDERED: NACL 0.9% 1000 ML 1,000 ML IV ONE (00:17)
[2018-09-24 00:25] VITALS: BP 143/91
== END 2018-09-24 00:33 | disposition other institution (70) ==
LOC: ED 16:56
DX: I63.9 Cerebral infarction, unspecified (principal); I13.0 Hypertensive heart and chronic kidney disease with heart failure and stage 1 through stage 4 chronic kidney disease, or unspecified chronic kidney disease; E11.22 Type 2 diabetes mellitus with diabetic chronic kidney disease; N18.2 Chronic kidney disease, stage 2 (mild); I50.9 Heart failure, unspecified; E11.40 Type 2 diabetes mellitus with diabetic neuropathy, unspecified; I71.4 Abdominal aortic aneurysm, without rupture; T82.9XXA Unspecified complication of cardiac and vascular prosthetic device, implant and graft, initial encounter; Z95.818 Presence of other cardiac implants and grafts; Z87.891 Personal history of nicotine dependence; Z79.899 Other long term (current) drug therapy
CPT/HCPCS: 36415; 70450; 70496; 70498; 80048; 80061; 82962; 84484; 85025; 85610; 85670; 85730; 93005; 93010; 99291; J7030; Q9967

== ENCOUNTER 2022-01-10 21:23 | Inpatient (IN) | payer MEDICARE ==
[2022-01-10] MEDS ORDERED: AMIODARONE 150 MG/100 ML-ED 150 MG/100 ML BAG IV ONE (21:35)
[2022-01-10] MEDS ORDERED: ASPIRIN 81 MG TAB CHEW PO ONE (21:35)
--- NOTE | 2022-01-10 21:43 | Emergency Department Report ---
ED Chest Pain HPI - General Stated Complaint: CHEST PAIN Time Seen by Provider: 01/10/22 21:35 Source: EMS Limitations: No Limitations - History of Present Illness Initial Comments: Patient is a 56-year-old male with history of AICD, [place] x2 brought in by EMS for evaluation of chest discomfort. EMS transmitted EKG strip with concern for possible STEMI prior to arrival. I discussed the EKG with Dr. Kelly and transmitted the image to him at approximately 2108 hours. States he is not sure this is an acute STEMI and wishes to evaluate further once patient arrives in the hospital. On arrival patient appears to be in no acute distress. He currently denies any chest pain. Patient states around 6 PM this evening he experienced 3 episodes of dizziness followed by a severe thump in his chest. - Related Data Home Medications Medication Instructions Recorded Confirmed Last Taken amLODIPine 10 mg PO DAILY 09/23/18 03/28/19 09/22/18 cloNIDine-TTS PATCH [Catapres-Tts 1 patch TD Q7D 09/23/18 03/28/19 09/21/18 0.1MG Patch] hydrALAZINE [Apresoline TAB] 50 mg PO TID 09/23/18 03/28/19 09/22/18 metFORMIN [Glucophage] 500 mg PO BID 09/23/18 03/28/19 Unknown Potassium Chloride [K-Dur] 10 meq PO QDAY 03/28/19 03/28/19 Unknown Warfarin [Coumadin] 2.5 mg PO QDAY 03/28/19 03/28/19 Unknown Previous Rx's Medication Instructions Recorded Last Taken Type Isosorbide Mononitrate [Isosorbide 30 mg PO DAILY #30 tab.er.24h 08/20/13 01/15/17 08:00 Rx Mononitrate ER] carvediloL [Coreg] 25 mg PO BID #60 tablet 08/20/13 09/22/18 Rx Furosemide [Lasix] 40 mg PO DAILY #30 tablet 09/17/13 01/15/17 08:00 Rx AtorvaSTATin [Lipitor] 80 mg PO QHS #30 tablet 01/19/17 Unknown Rx ISOSORBIDE MONOnitrate [Imdur ER] 30 mg PO QDAY #30 tablet 03/29/19 Unknown Rx Warfarin [Coumadin] 7.5 mg PO DAILY@1700 tablet 03/30/19 Unknown Rx Allergies Allergy/AdvReac Type Severity Reaction Status Date / Time aspirin AdvReac Unknown Verified 01/10/22 21:41 Heart Score - HEART Score History: Moderately suspicious EKG: Non-specific Age: 45-65 Risk factors: > 3 risk factors or hx of atherosclerotic disease Troponin: 1-3x normal limit HEART Score: 6 - EKG Read Time Time EKG Completed: 21:30 EKG Read Time: 21:35 - Critical Actions Critical Actions: 4-6 pts:12-16.6% risk of adverse cardiac event. Should be admitted ED Review of Systems ROS: Stated complaint: CHEST PAIN Other details as noted in HPI Constitutional: no symptoms reported Respiratory: no symptoms reported Cardiovascular: as per HPI Gastrointestinal: denies: abdominal pain, nausea, diarrhea Musculoskeletal: denies: back pain, joint swelling, arthralgia Skin: denies: rash, lesions Neurological: denies: headache, weakness, paresthesias Psychiatric: denies: anxiety, depression ED Past Medical Hx - Past Medical History Hx Hypertension: Yes Hx Heart Attack/AMI: Yes Hx Congestive Heart Failure: Yes Hx Diabetes: Yes Hx Renal Disease: Yes (Stage 2) Additional medical history: gout neuorpathy edema, AAA ~3 cm early 2018 - Surgical History Hx Open Heart Surgery: Yes (Artificial heart valve placement) Hx Pacemaker: Yes Hx Internal Defibrillator: Yes Additional Surgical History: AICD - Social History Smoking Status: Never Smoker Substance Use Type: None - Medications Home Medications: Home Medications Medication Instructions Recorded Confirmed Last Taken Type Isosorbide Mononitrate [Isosorbide 30 mg PO DAILY #30 tab.er.24h 08/20/13 03/28/19 01/15/17 08:00 Rx Mononitrate ER] carvediloL [Coreg] 25 mg PO BID #60 tablet 08/20/13 03/28/19 09/22/18 Rx Furosemide [Lasix] 40 mg PO DAILY #30 tablet 09/17/13 03/28/19 01/15/17 08:00 Rx AtorvaSTATin [Lipitor] 80 mg PO QHS #30 tablet 01/19/17 03/28/19 Unknown Rx amLODIPine 10 mg PO DAILY 09/23/18 03/28/19 09/22/18 History cloNIDine-TTS PATCH [Catapres-Tts 1 patch TD Q7D 09/23/18 03/28/19 09/21/18 History 0.1MG Patch] hydrALAZINE [Apresoline TAB] 50 mg PO TID 09/23/18 03/28/19 09/22/18 History metFORMIN [Glucophage] 500 mg PO BID 09/23/18 03/28/19 Unknown History Potassium Chloride [K-Dur] 10 meq PO QDAY 03/28/19 03/28/19 Unknown History Warfarin [Coumadin] 2.5 mg PO QDAY 03/28/19 03/28/19 Unknown History ISOSORBIDE MONOnitrate [Imdur ER] 30 mg PO QDAY #30 tablet 03/29/19 Unknown Rx Warfarin [Coumadin] 7.5 mg PO DAILY@1700 tablet 03/30/19 Unknown Rx ED Physical Exam - General General appearance: alert, in no apparent distress - Head Head exam: Present: atraumatic, normocephalic - Respiratory Respiratory exam: Present: normal lung sounds bilaterally. Absent: respiratory distress - Cardiovascular Cardiovascular Exam: Present: regular rate, normal rhythm, normal heart sounds - GI/Abdominal GI/Abdominal exam: Present: soft. Absent: distended, tenderness - Rectal Rectal exam: Present: deferred - Extremities Exam Extremities exam: Present: normal inspection - Neurological Exam Neurological exam: Present: alert, oriented X3 - Psychiatric Psychiatric exam: Present: normal affect, normal mood - Skin Skin exam: Present: warm, dry, intact, normal color ED Course Vital Signs 01/10/22 01/10/22 01/10/22 21:34 21:46 22:00 Pulse Rate 140 H 132 H 134 H Respiratory 24 24 25 H Rate Blood Pressure 160/108 160/108 O2 Sat by Pulse 96 93 95 Oximetry 01/10/22 01/10/22 01/10/22 22:16 22:30 22:46 Pulse Rate 133 H 130 H 100 H Respiratory 36 H 36 H 37 H Rate Blood Pressure 151/93 152/100 161/100 O2 Sat by Pulse 97 96 96 Oximetry - Reevaluation(s) Reevaluation #1: 01/10/22 22:11 Patient had small run of V. tach followed by discharge of his defibrillator. Amiodarone bolus and infusion initiated. 01/10/22 22:11 RAMESH score - Ramesh Score Age > 65: (0) No Aspirin use within the Past 7 Days: (1) Yes 3 or more CAD Risk Factors: (1) Yes 2 or more Angina events in past 24 hrs: (1) Yes Known CAD with more than 50% Stenosis: (0) No Elevated Cardiac Markers: (1) Yes ST Deviation Greater than 0.5mm: (0) No RAMESH Score: 4 ED Medical Decision Making - Lab Data Result diagrams: 01/10/22 21:47 01/10/22 21:47 - EKG Data -: EKG Interpreted by Me EKG shows normal: sinus rhythm Rate: tachycardia - EKG Data Interpretation: nonspecific ST-T wave soledad, other (RBBB) - Medical Decision Making 56-year-old male presenting to ED with likely multiple defibrillator discharges this evening. He had 1 episode of V. tach followed by defibrillator discharge here in the emergency department. He was started on amiodarone bolus and infusion. Labs reviewed. CBC and CMP grossly unremarkable. Troponin 0.063. I discussed the case with Dr. Kelly. Request admission to CCU on heparin. Dr. Thompson paged and will admit. Critical Care Time: Yes Critical care time in (mins) excluding proc time.: 60 Critical care attestation.: If time is entered above; I have spent that time in minutes in the direct care of this critically ill patient, excluding procedure time. ED Disposition Clinical Impression: Implantable cardioverter-defibrillator (ICD) discharge, Ventricular tachycardia (paroxysmal), Elevated troponin Disposition: ADMITTED INPATIENT Is pt being admited?: Yes Condition: Stable
[2022-01-10 22:00] LABS: Basophils % (Auto) 0.8 % (0.0-1.8); Eosinophils # (Auto) 0.1 K/mm3 (0.0-0.4); Eosinophils % (Auto) 1.2 % (0.0-4.3); Hematocrit 41.2 % (35.5-45.6); Hemoglobin 13.3 gm/dl (11.8-15.2); Lymphocytes # (Auto) 0.3 K/mm3 (1.2-5.4); Mean Corpuscular HGB Conc 32 % (32-34); Mean Corpuscular Volume 86 fl (84-94); Monocytes # (Auto) 0.3 K/mm3 (0.0-0.8); Monocytes % (Auto) 6.1 % (0.0-7.3); Platelet Count 165 K/mm3 (140-440); Red Blood Count 4.79 M/mm3 (3.65-5.03); Red Cell Distribution Width 19.5 % (13.2-15.2)
--- NOTE | 2022-01-10 22:08 | XRay Report ---
CHEST 1 VIEW 01/10/2022 8:56 PM INDICATION / CLINICAL INFORMATION: Chest Pain. COMPARISON: None available. FINDINGS: SUPPORT DEVICES: Cardiac leads are unchanged. HEART / MEDIASTINUM: Enlarged, unchanged. LUNGS / PLEURA: There is limited evaluation of the left lower hemithorax due to the enlarged cardiac silhouette. Accounting for this, lungs are clear. No pneumothorax. ADDITIONAL FINDINGS: No significant additional findings. IMPRESSION: 1. No acute findings. Signer Name: Mich Barros MD Signed: 01/10/2022 10:04 PM Workstation Name: [id number]
[2022-01-10 22:24] LABS: Alanine Aminotransferase 38 units/L (7-56); Albumin 3.9 g/dL (3.9-5); BUN/Creatinine Ratio 18; Blood Urea Nitrogen 24 mg/dL (9-20); Calcium 8.9 mg/dL (8.4-10.2); Hemolysis Index 1
[2022-01-10] MEDS: AMIODARONE 900 MG in DEXTROSE 5% IN WATER 482 ML IV SCH (22:40)
[2022-01-10 23:23] LABS: Chol/HDL Ratio 3.22 %; HDL Cholesterol 35 mg/dL (40-59); LDL Cholesterol,Direct 72 mg/dL (50-130)
[2022-01-10 23:34] LABS: INR 2.25 (0.87-1.13)
[2022-01-10 23:35] LABS: Partial Thromboplastin Time 38.8 Sec. (24.2-36.6)
[2022-01-10] MEDS ORDERED: MAGNESIUM HYDROXIDE (MOM) ORAL LIQD UDC PO PRN (23:49)
[2022-01-10] MEDS ORDERED: DEXTROSE 50% IN WATER (25GM) 50 ML SYRINGE IV PRN (23:49)
[2022-01-10] MEDS ORDERED: MORPHINE 4 MG/1 ML INJ IV PRN (23:49)
[2022-01-10] MEDS ORDERED: ACETAMINOPHEN 325 MG TAB PO PRN (23:49)
[2022-01-10] MEDS ORDERED: ONDANSETRON 4 MG/2 ML INJ IV PRN (23:49)
[2022-01-10] MEDS ORDERED: MORPHINE 2 MG/1 ML INJ IV PRN (23:49)
--- NOTE | 2022-01-11 | History and Physical Report ---
History of Present Illness Date of examination: 01/10/22 Date of admission: 01/10/2022 Chief complaint: Chest Discomfort History of present illness: 56-year-old -Welsh male with known history of AICD, MIs x2 , diabetes mellitus, CHF and hypertension presenting to the emergency room today via EMS with chest discomfort. There was a initial concern for STEMI prior to arrival in the emergency room. EKG was transmitted to the on-call dietary assistant who indicates patient may need to be reassessed upon arrival in the emergency room. Upon arrival in the emergency room, patient was in no acute distress, AICD was said to have fired causing patient to have some chest discomfort. He subsequently went into the V. tach. Patient was thereby placed on amiodarone drip and heparin drip. Patient denies any fever or chills, no nausea or vomiting and no abdominal pain. He indicates he felt dizzy, denies any diaphoresis. Patient states he has not taken his diuretics today. Work-up in the emergency room today, lab was significant for mild hypokalemia of 3.4, BUN of 24 and creatinine of 1.3, magnesium of 1.5, troponin of 0.063. Chest x-ray showed no acute findings. Past History Past Medical History: acute MA, diabetes, hypertension, hyperlipidemia Past Surgical History: Other (AICD) Social history: no significant social history Family history: no significant family history Medications and Allergies Allergies Allergy/AdvReac Type Severity Reaction Status Date / Time aspirin AdvReac Unknown Verified 01/10/22 21:41 Home Medications Medication Instructions Recorded Confirmed Last Taken Type Isosorbide Mononitrate [Isosorbide 30 mg PO DAILY #30 tab.er.24h 08/20/13 03/28/19 01/15/17 08:00 Rx Mononitrate ER] carvediloL [Coreg] 25 mg PO BID #60 tablet 08/20/13 03/28/19 09/22/18 Rx Furosemide [Lasix] 40 mg PO DAILY #30 tablet 09/17/13 03/28/19 01/15/17 08:00 Rx AtorvaSTATin [Lipitor] 80 mg PO QHS #30 tablet 01/19/17 03/28/19 Unknown Rx amLODIPine 10 mg PO DAILY 09/23/18 03/28/19 09/22/18 History cloNIDine-TTS PATCH [Catapres-Tts 1 patch TD Q7D 09/23/18 03/28/19 09/21/18 History 0.1MG Patch] hydrALAZINE [Apresoline TAB] 50 mg PO TID 09/23/18 03/28/19 09/22/18 History metFORMIN [Glucophage] 500 mg PO BID 09/23/18 03/28/19 Unknown History Potassium Chloride [K-Dur] 10 meq PO QDAY 03/28/19 03/28/19 Unknown History Warfarin [Coumadin] 2.5 mg PO QDAY 03/28/19 03/28/19 Unknown History ISOSORBIDE MONOnitrate [Imdur ER] 30 mg PO QDAY #30 tablet 03/29/19 Unknown Rx Warfarin [Coumadin] 7.5 mg PO DAILY@1700 tablet 03/30/19 Unknown Rx Active Meds: Active Medications Acetaminophen (Acetaminophen 325 Mg Tab) 650 mg PO Q6H PRN PRN Reason: Pain MILD(1-3)/Fever >100.5/NÚÑEZ Dextrose (Dextrose 50% In Water (25gm) 50 Ml Syringe) 50 ml IV Q30MIN PRN; Protocol PRN Reason: Hypoglycemia Amiodarone HCl 900 mg/ (Dextrose) 500 mls @ 33.333 mls/hr IV DIRECT SHAKEEL; Protocol Last Admin: 01/10/22 22:40 Dose: 1 mg/min, 33.333 mls/hr Insulin Human Lispro (Insulin Lispro 100 Unit/Ml) 0 unit SUB-Q ACHS SHAKEEL; Protocol Magnesium Hydroxide (Magnesium Hydroxide (Mom) Oral Liqd Udc) 30 ml PO Q4H PRN PRN Reason: Constipation Morphine Sulfate (Morphine 2 Mg/1 Ml Inj) 2 mg IV Q4H PRN PRN Reason: Pain, Moderate (4-6) Morphine Sulfate (Morphine 4 Mg/1 Ml Inj) 4 mg IV Q4H PRN PRN Reason: Pain , Severe (7-10) Ondansetron HCl (Ondansetron 4 Mg/2 Ml Inj) 4 mg IV Q8H PRN PRN Reason: Nausea And Vomiting Sodium Chloride (Sodium Chloride 0.9% 10 Ml Flush Syringe) 10 ml IV BID SHAKEEL Sodium Chloride (Sodium Chloride 0.9% 10 Ml Flush Syringe) 10 ml IV PRN PRN PRN Reason: LINE FLUSH Review of Systems Constitutional: no fever, no chills Ears, nose, mouth and throat: no nasal congestion, no sore throat Cardiovascular: chest pain, palpitations, lightheadedness, no orthopnea, no syncope Respiratory: shortness of breath, no cough Gastrointestinal: no abdominal pain, no nausea, no vomiting, no diarrhea Genitourinary Male: no dysuria, no hematuria, no flank pain Musculoskeletal: no neck pain, no low back pain Integumentary: no rash, no pruritis Neurological: headaches, no confusion Psychiatric: no anxiety, no depression Endocrine: no polyphagia, no polydipsia, no polyuria, no nocturia Exam - Constitutional Vitals: Temp Pulse Resp BP Pulse Ox 100 H 37 H 161/100 96 01/10/22 22:46 01/10/22 22:46 01/10/22 22:46 01/10/22 22:46 General appearance: Present: no acute distress, well-nourished, obese - EENT Eyes: Present: PERRL, EOM intact. Absent: scleral icterus ENT: hearing intact, clear oral mucosa, dentition normal - Neck Neck: Present: supple, normal ROM - Respiratory Respiratory effort: normal Respiratory: bilateral: diminished - Cardiovascular Rhythm: regular Heart Sounds: Present: S1 & S2, systolic murmur (Soft systolic murmur). Absent: gallop, diastolic murmur, rub, click - Extremities Extremities: no ischemia, Full ROM Extremity abnormal: edema (1+ bilateral ankle edema), ulceration (4 x 4 centimeter ulcer on the lateral aspect of the ankle just above the lateral malleolus. No obvious drainage) Peripheral Pulses: within normal limits - Abdominal General gastrointestinal: Present: soft, non-tender, non-distended, normal bowel sounds. Absent: mass - Integumentary Integumentary: Present: clear, warm, dry, normal turgor. Absent: rash - Musculoskeletal Musculoskeletal: strength equal bilaterally - Psychiatric Psychiatric: appropriate mood/affect, intact judgment & insight, memory intact, cooperative - Neurologic Neurologic: CNII-XII intact, no focal deficits, moves all extremities HEART Score - HEART Score EKG: Non-specific Age: 45-65 Risk factors: > 3 risk factors or hx of atherosclerotic disease Troponin: Troponin T 0.063 ng/mL (0.00-0.029) H 01/10/22 21:47 Troponin: 1-3x normal limit - Critical Actions Critical Actions: 4-6 pts:12-16.6% risk of adverse cardiac event. Should be admitted Results - Labs CBC & Chem 7: 01/10/22 21:47 01/10/22 21:47 Labs: Abnormal lab results 01/10/22 01/10/22 01/10/22 Range/Units 21:47 21:47 21:47 RDW 19.5 H (13.2-15.2) % Lymph % (Auto) 6.0 L (13.4-35.0) % Lymph # (Auto) 0.3 L (1.2-5.4) K/mm3 Seg Neutrophils % 85.9 H (40.0-70.0) % PT 27.8 H (12.2-14.9) Sec. INR 2.25 H (0.87-1.13) APTT 38.8 H (24.2-36.6) Sec. Sodium 147 H (137-145) mmol/L Potassium 3.4 L (3.6-5.0) mmol/L Chloride 109.0 H (98-107) mmol/L BUN 24 H (9-20) mg/dL Glucose 149 H (75-100) mg/dL Magnesium (1.7-2.3) mg/dL Total Bilirubin 1.30 H (0.1-1.2) mg/dL Troponin T 0.063 H (0.00-0.029) ng/mL HDL Cholesterol 35 L (40-59) mg/dL 01/10/22 Range/Units 21:47 RDW (13.2-15.2) % Lymph % (Auto) (13.4-35.0) % Lymph # (Auto) (1.2-5.4) K/mm3 Seg Neutrophils % (40.0-70.0) % PT (12.2-14.9) Sec. INR (0.87-1.13) APTT (24.2-36.6) Sec. Sodium (137-145) mmol/L Potassium (3.6-5.0) mmol/L Chloride (98-107) mmol/L BUN (9-20) mg/dL Glucose (75-100) mg/dL Magnesium 1.50 L (1.7-2.3) mg/dL Total Bilirubin (0.1-1.2) mg/dL Troponin T (0.00-0.029) ng/mL HDL Cholesterol (40-59) mg/dL Assessment and Plan - Patient Problems (1) Implantable cardioverter-defibrillator (ICD) discharge Current Visit: Yes Status: Acute Plan to address problem: Patient to be followed by dietary assistant AICD may have to be interrogated. (2) Ventricular tachycardia (paroxysmal) Current Visit: Yes Status: Acute Plan to address problem: Patient currently on amiodarone drip and heparin drip. Await further evaluation and recommendations from cardiology. We will correct electrolyte imbalance (3) Elevated troponin Current Visit: Yes Status: Acute Plan to address problem: We will trend troponin levels. Await further recommendations from cardiology. (4) Sleep apnea, obstructive Current Visit: No Status: Acute Plan to address problem: Patient uses CPAP at home. (5) CAD (coronary artery disease) Current Visit: No Status: Chronic Plan to address problem: Status post 2 MIs in the past. Will continue to monitor EKG and cardiac enzymes. (6) HTN (hypertension) Current Visit: No Status: Chronic Plan to address problem: Will resume routine home medications and monitor vital signs closely. (7) Type 2 diabetes mellitus Current Visit: No Status: Chronic Plan to address problem: Patient placed on sliding scale insulin. Monitor Accu-Cheks. (8) Hypomagnesemia Current Visit: Yes Status: Acute Plan to address problem: Will replete magnesium and monitor chemistry. (9) CHF exacerbation Current Visit: No Status: Acute Qualifiers: Heart failure type: unspecified Qualified Code(s): I50.9 - Heart failure, unspecified Plan to address problem: Will place patient on diuretics. Will monitor inputs and outputs and also monitor daily weight. Patient will be scheduled for echocardiogram. (10) Hypokalemia Current Visit: Yes Status: Acute Plan to address problem: Will replete potassium and monitor chemistry. (11) DVT prophylaxis Current Visit: Yes Status: Acute Plan to address problem: Patient currently on heparin drip. (12) Full code status Current Visit: Yes Status: Acute Plan to address problem: Patient is full code.
[2022-01-11] MEDS ORDERED: ALBUTEROL 2.5 MG/3 ML NEBU IH PRN (00:19)
[2022-01-11] MEDS ORDERED: FUROSEMIDE 40 MG/4 ML INJ IV ONE (01:06)
[2022-01-11] MEDS ORDERED: MAGNESIUM SULFATE 1 GM in SODIUM CHLORIDE 0.9% 50 ML IV ONE (01:22)
[2022-01-11] MEDS ORDERED: POTASSIUM CHLORIDE 10 MEQ 10 MEQ/100 ML BAG IV ONE (01:23)
[2022-01-11] MEDS ORDERED: LORazepam 2 MG/ML VIAL IV ONE (04:28)
[2022-01-11 05:17] LABS: BUN/Creatinine Ratio 16; Blood Urea Nitrogen 23 mg/dL (9-20); Calcium 8.8 mg/dL (8.4-10.2); Hemolysis Index 7
[2022-01-11] MEDS: FUROSEMIDE 40 MG/4 ML INJ IV SCH ×2 (06:05→18:07)
[2022-01-11] MEDS ORDERED: INSULIN LISPRO 100 UNIT/ML SUB-Q SCH (07:30)
[2022-01-11] MEDS ORDERED: POTASSIUM CHLORIDE ER 20 MEQ TAB PO NR (08:00)
[2022-01-11] MEDS ORDERED: ETOMIDATE 20 MG/10 ML INJ IV ONE ×2 (08:39→08:41)
[2022-01-11] MEDS ORDERED: SUCCINYLCHOLINE CHLORIDE 200 MG/10 ML INJ MDV IV ONE (08:39)
[2022-01-11] MEDS ORDERED: SUCCINYLCHOLINE CHLORIDE 200 MG/10 ML INJ MDV ONE (08:41)
[2022-01-11] MEDS ORDERED: LORazepam 2 MG/ML VIAL IV SCH (08:45)
[2022-01-11] MEDS ORDERED: FUROSEMIDE 40 MG/4 ML INJ IV SCH (08:45)
--- NOTE | 2022-01-11 08:52 | Event Note ---
Date: 01/11/22 0851 I was consulted by the hospitalist for intubation for patient Mr. Solorio. Patient presented with complaint of chest pain and was diagnosed with likely CHF exacerbation. On exam patient has sats at 85%. He is tachycardic. I have listened to the patient's lungs and he has diffuse Rales throughout. Patient is given additional dose of IV Lasix. He will be preoxygenated prior to intubation. Patient was intubated. Patient was intubated with a 7.5 tube and patient was 24 at the teeth. We used etomidate and succinylcholine for meds. Chest x-ray done after the intubation was notable for ET tube that appears in place however patient has increased pulmonary edema significantly. Patient is being managed by hospitalist/intensive care at this time. His course was complicated by hypoxia. Patient was in the 70s after intubation and remains as such. During intubation copious fluid was noted foamy, pink which is consistent with patie nt's history of congestive heart failure.
[2022-01-11] MEDS ORDERED: fentaNYL DRIP Premix 2,000 MCG/100 ML BAG IV SCH (10:00)
[2022-01-11 10:01] LABS: ABG Base Excess -5.9 mmol/L (-2.0-3.0); ABG HCO3 21.3 mmol/L (20.0-26.0); ABG Methemoglobin 0.8 % (0.0-1.5); ABG Oxygen Saturation 64.5 % (95.0-99.0); ABG PCO2 48.1 mm Hg; ABG PH 7.265 pH Units (7.350-7.450); ABG PO2 40.4 mm Hg (80.0-90.0)
--- NOTE | 2022-01-11 10:13 | XRay Report ---
CHEST 1 VIEW 01/11/2022 9:32 AM INDICATION / CLINICAL INFORMATION: intubation. COMPARISON: 01/10/2022 FINDINGS: SUPPORT DEVICES: An endotracheal tube has been inserted terminating 3.9 cm superior to the nabeel. A nasogastric tube is followed to the stomach although the distal tip is not included. Multilead pacema ker device appears in similar position. HEART / MEDIASTINUM: Stable cardiomegaly LUNGS / PLEURA: Moderate bilateral perihilar infiltrates have developed, right greater than left. Thi s probably represents pulmonary edema although an infectious etiology is not excluded. Trace pleural effusions are suspected. No pneumothorax. ADDITIONAL FINDINGS: No significant additional findings. IMPRESSION: 1. Adequate placement of lines and tubes. 2. Probable CHF. Signer Name: Cristóbal Cruz Jr, MD Signed: 01/11/2022 10:09 AM Workstation Name: [id number]
--- NOTE | 2022-01-11 10:15 | XRay Report ---
ABDOMEN 1 VIEW(S) INDICATION / CLINICAL INFORMATION: OG TUBE. COMPARISON: None available. FINDINGS: TUBES / LINES: Nasogastric tube terminates in the mid to distal stomach in adequate position. BOWEL GAS PATTERN: No significant abnormality. FREE AIR / EXTRALUMINAL GAS: None seen. ADDITIONAL FINDINGS: No significant additional findings. IMPRESSION: No significant abnormality. Adequate placement of the nasogastric tube. Signer Name: Cristóbal Cruz Jr, MD Signed: 01/11/2022 10:10 AM Workstation Name: [id number]
[2022-01-11] MEDS ORDERED: VANCOMYCIN PHARMACY TO DOSE IV SCH (11:00)
--- NOTE | 2022-01-11 11:55 | Consultation ---
History of Present Illness Consult date: 01/11/22 Requesting physician: JHONNY SHIPMAN Consult reason: arrhythmia, congestive heart failure History of present illness: Chief complaint: Chest pain This is a 56-year-old -[place] male, who follows with Dr. KURTIS Ferrer, with past medical history of aortic regurgitation, non-obstructive CAD (via [facility] 2009) HFrEF, diabetes, hyperlipidemia, hypertension, s/p BI-V ICD ([employer]), who presented to [facility] with complaints of chest pain. HPI obtained from review of records due to patient condition, no family at bedside. Patient was brought to the emergency department via EMS approximately 2135 on 01/10/2022 for chest pain. The transmitted EKG strip from EMS was concerning for STEMI, however, upon review by on-call social organization professor, no STEMI on EKG. The patient had stated around approximately 6:00 pm [employer] that he had experienced 3 episodes of dizziness followed by a severe thump in his chest. Review of records revealed that patient had an episode of VT and is s/p ICD shock. Unclear if patient is medically compliant with heart failure medications or dietary/fluid restrictions. Upon examination in the emergency department today, 01/11/2022, patient tachypneic, tachycardic, and in acute respiratory distress. The decision was made by IMS/ED MD to intubate the patient, however, prior to intubation, the patient did deny chest pain and denied tenderness to palpation of his chest wall. Cardiology is consulted for acute heart failure. Past History Past Medical History: acute [place], diabetes, hypertension, hyperlipidemia Past Surgical History: Other (AICD) Social history: no significant social history Family history: no significant family history Medications and Allergies Allergies Allergy/AdvReac Type Severity Reaction Status Date / Time aspirin AdvReac Unknown Verified 01/10/22 21:41 Home Medications Medication Instructions Recorded Confirmed Last Taken Type Isosorbide Mononitrate [Isosorbide 30 mg PO DAILY #30 tab.er.24h 08/20/1301/15/17 08:00 Rx Mononitrate ER] carvediloL [Coreg] 25 mg PO BID #60 tablet 08/20/13 03/28/19 09/22/18 Rx Furosemide [Lasix] 40 mg PO DAILY #30 tablet 09/17/13 03/28/19 01/15/17 08:00 Rx AtorvaSTATin [Lipitor] 80 mg PO QHS #30 tablet 01/19/17 03/28/19 Unknown Rx amLODIPine 10 mg PO DAILY 09/23/18 03/28/19 09/22/18 History cloNIDine-TTS PATCH [Catapres-Tts 1 patch TD Q7D 09/23/18 03/28/19 09/21/18 History 0.1MG Patch] hydrALAZINE [Apresoline TAB] 50 mg PO TID 09/23/18 03/28/19 09/22/18 History metFORMIN [Glucophage] 500 mg PO BID 09/23/18 03/28/19 Unknown History Potassium Chloride [K-Dur] 10 meq PO QDAY 03/28/19 03/28/19 Unknown History Warfarin [Coumadin] 2.5 mg PO QDAY 03/28/19 03/28/19 Unknown History ISOSORBIDE MONOnitrate [Imdur ER] 30 mg PO QDAY #30 tablet 03/29/19 Unknown Rx Warfarin [Coumadin] 7.5 mg PO DAILY@1700 tablet 03/30/19 Unknown Rx Active Meds: Active Medications Acetaminophen (Acetaminophen 325 Mg Tab) 650 mg PO Q6H PRN PRN Reason: Pain MILD(1-3)/Fever >100.5/NÚÑEZ Albuterol (Albuterol 2.5 Mg/3 Ml Nebu) 2.5 mg IH Q4HRT PRN PRN Reason: Shortness Of Breath Atorvastatin Calcium (Atorvastatin 40 Mg Tab) 80 mg PO QHS [facility] Carvedilol (Carvedilol 25 Mg Tab) 25 mg PO BID [facility] Dextrose (Dextrose 50% In Water (25gm) 50 Ml Syringe) 50 ml IV Q30MIN PRN; Protocol PRN Reason: Hypoglycemia Fentanyl (Fentanyl 100 Mcg/2 Ml Inj) 50 mcg IV Q10MIN PRN PRN Reason: ANALGESIA Furosemide (Furosemide 40 Mg/4 Ml Inj) 40 mg IV 0600,1800 [facility] Last Admin: 01/11/22 06:05 Dose: 40 mg Furosemide (Furosemide 40 Mg/4 Ml Inj) 40 mg IV ONCE@0845 [facility] Stop: 01/11/22 13:45 Last Admin: 01/11/22 08:45 Dose: 40 mg Amiodarone HCl 900 mg/ (Dextrose) 500 mls @ 33.333 mls/hr IV DIRECT [facility]; Protocol Last Titration: 01/11/22 10:30 Dose: 0.5 mg/min, 16.667 mls/hr Propofol (Diprivan 10 Mg/Ml) 1,000 mg in 100 mls @ 3.538 mls/hr IV TITR [facility]; Protocol Last Titration: 01/11/22 10:36 Dose: 5 mcg/kg/min, 3.538 mls/hr Fentanyl Citrate (Fentanyl Drip Premix) 2,000 mcg in 100 mls @ 5.897 mls/hr IV TITR [facility]KE[facility]; Protocol Ceftriaxone Sodium (Rocephin/Ns 2 Gm/100 Ml) 2 gm in 100 mls @ 200 mls/hr IV Q24H [facility]; Protocol Azithromycin (Zithromax/Ns) 500 mg in 250 mls @ 250 mls/hr IV Q24H [facility]; Protocol Insulin Human Lispro (Insulin Lispro 100 Unit/Ml) 0 unit SUB-Q Q6HR [facility]; Protocol Lorazepam (Lorazepam 2 Mg/Ml Vial) 1 mg IV ONCE@0845 [facility] Stop: 01/11/22 13:45 Last Admin: 01/11/22 09:00 Dose: Not Given Magnesium Hydroxide (Magnesium Hydroxide (Mom) Oral Liqd Udc) 30 ml PO Q4H PRN PRN Reason: Constipation Ondansetron HCl (Ondansetron 4 Mg/2 Ml Inj) 4 mg IV Q8H PRN PRN Reason: Nausea And Vomiting Potassium Chloride (Potassium Chloride Er 20 Meq Tab) 40 meq PO ONCE NR Stop: 01/11/22 12:00 Sodium Chloride (Sodium Chloride 0.9% 10 Ml Flush Syringe) 10 ml IV BID [facility] Sodium Chloride (Sodium Chloride 0.9% 10 Ml Flush Syringe) 10 ml IV PRN PRN PRN Reason: LINE FLUSH Review of Systems ROS unobtainable: due to mental status Physical Examination Vital Signs - 24 hr 01/10/22 01/10/22 01/10/22 21:34 21:46 22:00 Temperature Pulse Rate 140 H 132 H 134 H Respiratory 24 24 25 H Rate Blood Pressure 160/108 160/108 Blood Pressure [Left] O2 Sat by Pulse 96 93 95 Oximetry 01/10/22 01/10/22 01/10/22 22:16 22:30 22:46 Temperature Pulse Rate 133 H 130 H 100 H Respiratory 36 H 36 H 37 H Rate Blood Pressure 151/93 152/100 161/100 Blood Pressure [Left] O2 Sat by Pulse 97 96 96 Oximetry 01/10/22 01/10/22 01/10/22 23:00 23:16 23:30 Temperature Pulse Rate 130 H 97 H 98 H Respiratory 14 30 H 34 H Rate Blood Pressure 134/106 145/96 135/94 Blood Pressure [Left] O2 Sat by Pulse 98 97 97 Oximetry 01/10/22 01/11/22 01/11/22 23:46 00:00 00:08 Temperature Pulse Rate 131 H 97 H 95 H Respiratory 37 H 26 H 26 H Rate Blood Pressure 156/93 141/99 152/129 Blood Pressure [Left] O2 Sat by Pulse 94 94 95 Oximetry 01/11/22 01/11/22 01/11/22 00:16 00:30 00:46 Temperature Pulse Rate 130 H 131 H 97 H Respiratory 28 H 35 H 26 H Rate Blood Pressure 152/129 169/108 166/99 Blood Pressure [Left] O2 Sat by Pulse 93 92 93 Oximetry 01/11/22 01/11/22 01/11/22 01:00 01:16 01:23 Temperature Pulse Rate 134 H 128 H 96 H Respiratory 14 27 H 29 H Rate Blood Pressure 158/88 155/106 155/83 Blood Pressure [Left] O2 Sat by Pulse 90 96 96 Oximetry 01/11/22 01/11/22 01/11/22 01:30 01:46 02:00 Temperature Pulse Rate 93 H 90 111 H Respiratory 28 H 25 H 13 Rate Blood Pressure 155/83 144/99 151/112 Blood Pressure [Left] O2 Sat by Pulse 97 97 75 L Oximetry 01/11/22 01/11/22 01/11/22 02:16 02:30 02:45 Temperature Pulse Rate 86 88 90 Respiratory 25 H 27 H 26 H Rate Blood Pressure 140/99 135/88 135/88 Blood Pressure [Left] O2 Sat by Pulse 97 97 95 Oximetry 01/11/22 01/11/22 01/11/22 03:00 03:16 03:30 Temperature Pulse Rate 92 H 97 H 90 Respiratory 28 H 15 24 Rate Blood Pressure 135/88 146/104 Blood Pressure [Left] O2 Sat by Pulse 95 94 96 Oximetry 01/11/22 01/11/22 01/11/22 03:46 04:00 04:16 Temperature Pulse Rate 95 H 104 H 129 H Respiratory 37 H 22 21 Rate Blood Pressure 146/104 141/95 141/95 Blood Pressure [Left] O2 Sat by Pulse 93 90 90 Oximetry 01/11/22 01/11/22 01/11/22 04:30 04:46 05:00 Temperature Pulse Rate 130 H 95 H 85 Respiratory 40 H 35 H 24 Rate Blood Pressure 147/98 147/98 143/88 Blood Pressure [Left] O2 Sat by Pulse 98 96 96 Oximetry 01/11/22 01/11/22 01/11/22 05:16 05:30 05:46 Temperature Pulse Rate 124 H 123 H 122 H Respiratory 20 24 35 H Rate Blood Pressure 143/88 134/86 134/86 Blood Pressure [Left] O2 Sat by Pulse 98 97 97 Oximetry 01/11/22 01/11/22 01/11/22 06:00 06:16 06:30 Temperature Pulse Rate 99 H 100 H 132 H Respiratory 18 26 H 26 H Rate Blood Pressure 141/87 141/87 151/89 Blood Pressure [Left] O2 Sat by Pulse 92 95 96 Oximetry 01/11/22 01/11/22 01/11/22 06:46 07:00 07:16 Temperature Pulse Rate 130 H 101 H 133 H Respiratory 34 H 38 H 41 H Rate Blood Pressure 151/89 168/115 168/115 Blood Pressure [Left] O2 Sat by Pulse 97 95 93 Oximetry 01/11/22 01/11/22 01/11/22 08:20 10:36 10:38 Temperature 101.1 F H Pulse Rate 93 H 99 H Respiratory 42 H 37 H Rate Blood Pressure 142/88 Blood Pressure 138/91 [Left] O2 Sat by Pulse 81 L 78 L 69 L Oximetry General appearance: severe distress Neck: Positive: trachea midline Cardiac: Positive: S1/S2, Tachycardia. Negative: Audible Murmur Lungs: Positive: Rhonchi (diffuse rhonchi anterior lobes) Neuro: Positive: Other (Somnolent. Will ) Abdomen: Positive: Active Bowel Sounds Male genitourinary: Positive: deferred Skin: Negative: Rash Extremities: Present: +3 Edema (BLE), Cool Results 01/10/22 21:47 01/11/22 04:20 Cardiac Enzymes 01/10/22 Range/Units 21:47 AST 28 (5-40) units/L Coagulation 01/10/22 Range/Units 21:47 PT 27.8 H (12.2-14.9) Sec. INR 2.25 H (0.87-1.13) APTT 38.8 H (24.2-36.6) Sec. Lipids 01/10/22 Range/Units 21:47 Triglycerides 94 (2-149) mg/dL Cholesterol 113 (50-199) mg/dL HDL Cholesterol 35 L (40-59) mg/dL Cholesterol/HDL Ratio 3.22 % CBC 01/10/22 Range/Units 21:47 WBC 5.5 (4.5-11.0) K/mm3 RBC 4.79 (3.65-5.03) M/mm3 Hgb 13.3 (11.8-15.2) gm/dl Hct 41.2 (35.5-45.6) % Plt Count 165 (140-440) K/mm3 Lymph # (Auto) 0.3 L (1.2-5.4) K/mm3 Coles # (Auto) 0.3 (0.0-0.8) K/mm3 Eos # (Auto) 0.1 (0.0-0.4) K/mm3 Baso # (Auto) 0.0 (0.0-0.1) K/mm3 Comprehensive Metabolic Panel 01/10/22 01/11/22 Range/Units 21:47 04:20 Sodium 147 H 143 (137-145) mmol/L Potassium 3.4 L 3.6 (3.6-5.0) mmol/L Chloride 109.0 H 106.5 (98-107) mmol/L Carbon Dioxide 25 21 L (22-30) mmol/L BUN 24 H 23 H (9-20) mg/dL Creatinine 1.3 1.4 H (0.8-1.3) mg/dL Glucose 149 H 157 H (75-100) mg/dL Calcium 8.9 8.8 (8.4-10.2) mg/dL AST 28 (5-40) units/L ALT 38 (7-56) units/L Alkaline Phosphatase 55 (35-129) units/L Total Protein 6.7 (6.3-8.2) g/dL Albumin 3.9 (3.9-5) g/dL - Imaging and Cardiology Echo: pending EKG: report reviewed, image reviewed EKG interpretations - Telemetry EKG Rhythm: Sinus Tachycardia - EKG Sinus rhythms and dysrhythmias: sinus tachycardia (RBBB, IVCD) Assessment and Plan Assessment Acutely decompensated HFrEF Acute on chronic HFrEF Acute Pulmonary edema - copious pink, frothy sputum noted on intubation Acute Hypoxic Respiratory Failure S/p ICD shock MARCIO Mildly elevated troponin- likely 2/2 to acutely decompensated HF/pulmonary hamzah ma/ICD shocks Hyperlipidemia Hypertension DM - mangement per primary team S/p Bi-V ICD ([employer]) H/o Stroke (OAC with Coumadin since 11/2020) H/o Prostate CA (2020) Home medications: Amlodipine 5 mg p.o. daily, atorvastatin 80 mg p.o. nightly, clonidine 0.1 mg transdermal patch q. 7 days, carvedilol 25 mg p.o. twice daily, hydralazine 50 mg p.o. 3 times daily, Imdur 30 mg p.o. every morning, Lasix 40 mg p.o. daily, metformin 500 mg p.o. twice daily, warfarin 5 mg tablet p.o. daily. Cardiographics: EK01/11/[address] with RBBB, IVCD, No acute ischemiac changes. CXR: 01/10/2022: Moderate bilateral perihilar infiltrates have developed, right greater than left. This probably represents pulmonary edema although infectious etiologies not excluded. Trace pleural effusions are suspected. No pneumothorax. Impression: Adequate placement of lines and tubes. Probable CHF Echocardiogram 03/2019: Mild to moderate concentric LV hypertrophy is observed. The LV size is moderate to severely dilated. RV global systolic function is mildly reduced. Mild aortic regurgitation. RV systolic pressure is calculated at 21 mmHg. Global LV systolic function is severely decreased. Estimated EF is 20 to 25%. Cath- 05/2010 at [facility]: Nonobstructive CAD Recommendations/plan EKG with ST, RBBB, IVCD (RBBB,IVCD similar to previous EKG). No acute ischemic changes. Continue telemetry monitoring Repeat echocardiogram. Patient cool/wet on exam. Agree with diuresis with 40 mg IV twice daily Lasix. Hold of on FABY/ARB in setting of MARCIO. GDMT: Coreg 25 mg PO BID, Statin, No asa due to allergy. Continue coumadin if no medical contraindication. S/p ICD shock from VT episode. Continue Amio gtt for now. May benefit from ICD interrogation for full device report once patient is m edically stable. May ultimately benefit from inotrope therapy in the setting of acutely decompensated heart failure. VS stable at this point. Will hold off for now. Primary team may wish to consider COVID-19 testing Strict I & O and DW. Other management per primary teams. Patient seen in conjunction with Dr. Connolly who agrees with the assessment and management of this patient. - Patient Problems (1) Elevated troponin Current Visit: Yes Status: Acute (2) Implantable cardioverter-defibrillator (ICD) discharge Current Visit: Yes Status: Acute (3) MARCIO (acute kidney injury) Current Visit: No Status: Acute (4) Acute on chronic HFrEF (heart failure with reduced ejection fraction) Current Visit: No Status: Acute (5) Acute pulmonary edema Current Visit: No Status: Acute (6) Acute respiratory failure with hypoxemia Current Visit: No Status: Acute
[2022-01-11] MEDS ORDERED: SODIUM CHLORIDE 0.9% 500 ML 500 ML ONE (13:00)
--- NOTE | 2022-01-11 13:01 | Progress Note ---
<TATUM MIRELES - Last Filed: 01/11/22 19:19> Assessment and Plan Assessment and plan: This is a 56-year-old AA male with known past medical history of [place], aortic regurgitation, non-obstructive CAD, HFrEF, s/p AICD, diabetes, hyperlipidemia, and hypertension admitted for AICD discharge. Decompensated in the ED s/p emerge nt intubation now on ventilatory support, in fulminant pulmonary edema. Hospital Course to Date: 01/11: S/p emergent intubation by the ED physician due to increase WOB, tachypnea, and lethagy. [place] frothy sputum noted in ETT, fulminant pulmonary edema. Additional 40mg Iv lasix administered. Patient is Currently on high vent setting, 100% Fio2 and 16 of Peep. SPO2 remains labile, repeat ABG pending. CCM on consult for vent management. ST with BBB noted on the monitor, on amiodarone gtt for VTach per Cardio, VSS, echo pending. Monitor electrolytes and replete as needed Assessment and Plan #Acute Hypoxic Respiratory Failure #Fulminant Pulmonary Edema #Possible CAP - Emergently intubated in the ED on 01/11 due to increase WOB, tachypnea, and lethagy - [place] frothy sputum noted in ETT - CXR noted, suggesting pulmonary edema but can't exclude infectious Etiology - Vent setting: PRVC- 100%,16,30,400 - Post intubation ABG pending - Additional 40mg IV Lasix given - Empiric IV Abx initiated: Rocephin Azitho - CCM consulted, appreciate recommendations - VAP bundle addressed - Aspiration precaution HOB above 30 - Daily SBT and SAT trials as tolerated - Daily ABG and CXR - Continue SPO2 monitoring for SPO2 goal above 92% #Ventricular Tachycardia #Implantable Cardioverter-Defibrillator (ICD) discharge #CAD (Coronary Artery Disease) #Congestive Heart Failure with Reduce EF #Elevated troponin #HTN (Hypertension) - Presented with Chest pain - Went into in V.TACH in the ED, AICD discharged - Amiodarone bolus and drip was initiated per protocol - Troponin are elevated X2, probably due to demand ischemia - [address] with RBBB - 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 this am, most likely prerenal - S/p 80mg of IV lasix with good response - Continue to trend BMP - Strict intake and output - Avoid nephrotoxic medications - Monitor and replace electrolytes as needed #Possible CAP - Currently with high fevers TMAX 101.1 - CXR noted, suggesting pulmonary edema but can't exclude infectious Etiology - COVID PCR pending - Blood cultures, UA, and sputum culture pending - Empiric IV Abx initiated - F/u on cultures - Daily CBC monitor - Consider ID consult if febrile and if leukocytosis occur #Type 2 Diabetes Mellitus - BG check and SSI Q6hrs - Avoid hypoglycemia - While critically ill target blood glucose of 140-180 #GI/DVT Prophylaxis - PPI- Pepcid - Heparin SubQ - SCDs to bilateral lower extremities while in bed #Advance Care Planning - Disease education data, care plan, diagnoses, and prognosis were discussed with patient's at the bedside. Patient is a FULL code. Patient's acknowledged understanding and agreement with current care plan. +CCT 60minutes History Interval history: Patient seen and examined in the ED. S/p emergent intubation by the ED physician due to increase WOB, tachypnea, and lethagy. [place] frothy sputum noted in ETT, fulminant pulmonary edema. Currently on high vent setting, 100% Fio2 and 16 of Peep. SPO2 remains labile. Sedation initiated for better compliance. VSS. Hospitalist Physical - Constitutional Vitals: Temp Pulse Resp BP Pulse Ox 101.1 F H 99 H 37 H 138/91 69 L 01/11/22 10:38 01/11/22 10:38 01/11/22 10:38 01/11/22 10:38 01/11/22 10:38 General appearance: Present: severe distress, obese, other (Intubated and sedated) - EENT Eyes: Present: PERRL - Respiratory Respiratory effort: labored, accessory muscle use, other (Tachpnea) Respiratory: bilateral: rales, rhonchi, wheezing - Cardiovascular Rhythm: regular Heart Sounds: Present: S1 & S2 - Extremities Extremities: no ischemia, pulses intact, pulses symmetrical Extremity abnormal: edema - Peripheral Assessment Generalized Edema Type: Non-pitting Edema Degree: 2+ Capillary Refill: < 3 seconds Skin Temperature: Warm Bilateral Lower Extremity Edema Type: Pitting Edema Degree: 2+ Capillary Refill: < 3 seconds Skin Temperature: Warm Peripheral Pulses: within normal limits - Abdominal General gastrointestinal: soft, non-distended, normal bowel sounds - Integumentary Integumentary: Present: warm, dry - Psychiatric Psychiatric: other (Intubated and sedated) - Neurologic Neurologic: moves all extremities, other (Intubated and sedated) - Allied Health Allied health notes reviewed: nursing HEART Score - HEART Score EKG: Non-specific Age: 45-65 Risk factors: > 3 risk factors or hx of atherosclerotic disease Troponin: Troponin T 0.075 ng/mL (0.00-0.029) H D 01/11/22 04:20 Troponin: 1-3x normal limit - Critical Actions Critical Actions: 4-6 pts:12-16.6% risk of adverse cardiac event. Should be admitted Results - Labs CBC & Chem 7: 01/10/22 21:47 01/11/22 04:20 Labs: Laboratory Last Values WBC 5.5 K/mm3 (4.5-11.0) 01/10/22 21:47 RBC 4.79 M/mm3 (3.65-5.03) 01/10/22 21:47 Hgb 13.3 gm/dl (11.8-15.2) 01/10/22 21:47 Hct 41.2 % (35.5-45.6) 01/10/22 21:47 MCV 86 fl (84-94) 01/10/22 21:47 MCH 28 pg (28-32) 01/10/22 21:47 MCHC 32 % (32-34) 01/10/22 21:47 RDW 19.5 % (13.2-15.2) H 01/10/22 21:47 Plt Count 165 K/mm3 (140-440) 01/10/22 21:47 Lymph % (Auto) 6.0 % (13.4-35.0) L 01/10/22 21:47 [place] % (Auto) 6.1 % (0.0-7.3) 01/10/22 21:47 Eos % (Auto) 1.2 % (0.0-4.3) 01/10/22 21:47 Baso % (Auto) 0.8 % (0.0-1.8) 01/10/22 21:47 Lymph # (Auto) 0.3 K/mm3 (1.2-5.4) L 01/10/22 21:47 [place] # (Auto) 0.3 K/mm3 (0.0-0.8) 01/10/22 21:47 Eos # (Auto) 0.1 K/mm3 (0.0-0.4) 01/10/22 21:47 Baso # (Auto) 0.0 K/mm3 (0.0-0.1) 01/10/22 21:47 Seg Neutrophils % 85.9 % (40.0-70.0) H 01/10/22 21:47 Seg Neutrophils # 4.7 K/mm3 (1.8-7.7) 01/10/22 21:47 PT 27.8 Sec. (12.2-14.9) H 01/10/22 21:47 INR 2.25 (0.87-1.13) H 01/10/22 21:47 APTT 38.8 Sec. (24.2-36.6) H 01/10/22 21:47 ABG pH 7.265 pH Units (7.350-7.450) L 01/11/22 09:55 ABG pCO2 48.1 mm Hg 01/11/22 09:55 ABG pO2 40.4 mm Hg (80.0-90.0) L 01/11/22 09:55 ABG HCO3 21.3 mmol/L (20.0-26.0) 01/11/22 09:55 ABG O2 Saturation 64.5 % (95.0-99.0) L 01/11/22 09:55 ABG O2 Content 13.6 (0.0-44) 01/11/22 09:55 ABG Base Excess -5.9 mmol/L (-2.0-3.0) L 01/11/22 09:55 ABG Hemoglobin 15.4 gm/dl (14.0-18.0) 01/11/22 09:55 ABG Carboxyhemoglobin 1.3 % (0.0-5.0) 01/11/22 09:55 ABG Methemoglobin 0.8 % (0.0-1.5) 01/11/22 09:55 Oxyhemoglobin 63.1 % (95.0-99.0) L 01/11/22 09:55 FiO2 100 % 01/11/22 09:55 Sodium 143 mmol/L (137-145) 01/11/22 04:20 Potassium 3.6 mmol/L (3.6-5.0) 01/11/22 04:20 Chloride 106.5 mmol/L (98-107) 01/11/22 04:20 Carbon Dioxide 21 mmol/L (22-30) L 01/11/22 04:20 Anion Gap 19 mmol/L 01/11/22 04:20 BUN 23 mg/dL (9-20) H 01/11/22 04:20 Creatinine 1.4 mg/dL (0.8-1.3) H 01/11/22 04:20 Estimated GFR > 60 ml/min 01/11/22 04:20 BUN/Creatinine Ratio 16 % 01/11/22 04:20 Glucose 157 mg/dL (75-100) H 01/11/22 04:20 POC Glucose 236 mg/dL (70-105) H 01/11/22 09:19 Calcium 8.8 mg/dL (8.4-10.2) 01/11/22 04:20 Magnesium 2.00 mg/dL (1.7-2.3) 01/11/22 08:01 Total Bilirubin 1.30 mg/dL (0.1-1.2) H 01/10/22 21:47 AST 28 units/L (5-40) 01/10/22 21:47 ALT 38 units/L (7-56) 01/10/22 21:47 Alkaline Phosphatase 55 units/L (35-129) 01/10/22 21:47 Troponin T 0.075 ng/mL (0.00-0.029) H D 01/11/22 04:20 Total Protein 6.7 g/dL (6.3-8.2) 01/10/22 21:47 Albumin 3.9 g/dL (3.9-5) 01/10/22 21:47 Albumin/Globulin Ratio 1.4 % 01/10/22 21:47 Triglycerides 94 mg/dL (2-149) 01/10/22 21:47 Cholesterol 113 mg/dL (50-199) 01/10/22 21:47 LDL Cholesterol Direct 72 mg/dL (50-130) 01/10/22 21:47 HDL Cholesterol 35 mg/dL (40-59) L 01/10/22 21:47 Cholesterol/HDL Ratio 3.22 % 01/10/22 21:47 Blood Type B POSITIVE 01/10/22 21:47 Antibody Screen Negative 01/10/22 21:47 Active Medications - Current Medications Current Medications: Generic Name Dose Route Start Last Admin Trade Name Freq PRN Reason Stop Dose Admin Acetaminophen 650 mg 01/10/22 23:49 Acetaminophen 325 Mg Tab PO Q6H PRN Pain MILD(1-3)/Fever >100.5/NÚÑEZ Albuterol 2.5 mg 01/11/22 00:19 Albuterol 2.5 Mg/3 Ml Nebu IH Q4HRT PRN Shortness Of Breath Atorvastatin Calcium 80 mg 01/11/22 22:00 Atorvastatin 40 Mg Tab FEEDTUBE QHS SHAKEEL Carvedilol 25 mg 01/11/22 13:00 Carvedilol 25 Mg Tab FEEDTUBE BID SHAKEEL Dextrose 50 ml 01/10/22 23:49 Dextrose 50% In Water (25gm) 50 Ml Syringe IV Q30MIN PRN Hypoglycemia Protocol Fentanyl 50 mcg 01/11/22 09:28 Fentanyl 100 Mcg/2 Ml Inj IV Q10MIN PRN ANALGESIA Furosemide 40 mg 01/11/22 06:00 01/11/22 06:05 Furosemide 40 Mg/4 Ml Inj IV 40 mg 0600,1800 SHAKEEL Administration Furosemide 40 mg 01/11/22 08:45 01/11/22 08:45 Furosemide 40 Mg/4 Ml Inj IV 01/11/22 13:45 40 mg ONCE@0845 SHAKEEL Administration Amiodarone HCl 900 mg/ 500 mls @ 33.333 mls/hr 01/10/22 22:00 01/11/22 10:30 Dextrose IV 0.5 mg/min DIRECT SHAKEEL 16.667 mls/hr Titration Protocol 1 MG/MIN Propofol 1,000 mg in 100 mls @ 3.538 mls/hr 01/11/22 10:00 01/11/22 10:36 Diprivan 10 Mg/Ml IV 5 mcg/kg/min TITR SHAKEEL 3.538 mls/hr Titration Protocol 5 MCG/KG/MIN Fentanyl Citrate 2,000 mcg in 100 mls @ 5.897 mls/hr 01/11/22 10:00 Fentanyl Drip Premix IV TITR SHAKEEL Protocol 1 MCG/KG/HR Ceftriaxone Sodium 2 gm in 100 mls @ 200 mls/hr 01/11/22 11:00 Rocephin/Ns 2 Gm/100 Ml IV Q24H SHAKEEL Protocol Azithromycin 500 mg in 250 mls @ 250 mls/hr 01/11/22 12:00 Zithromax/Ns IV Q24H SHAKEEL Protocol Insulin Human Lispro 0 unit 01/11/22 12:00 Insulin Lispro 100 Unit/Ml SUB-Q Q6HR [facility] Protocol Lorazepam 1 mg 01/11/22 08:45 01/11/22 09:00 Lorazepam 2 Mg/Ml Vial IV 01/11/22 13:45 Not Given ONCE@0845 SHAKEEL Magnesium Hydroxide 30 ml 01/10/22 23:49 Magnesium Hydroxide (Mom) Oral Liqd Udc PO Q4H PRN Constipation Ondansetron HCl 4 mg 01/10/22 23:49 Ondansetron 4 Mg/2 Ml Inj IV Q8H PRN Nausea And Vomiting Sodium Chloride 10 ml 01/11/22 10:00 Sodium Chloride 0.9% 10 Ml Flush Syringe IV BID SHAKEEL Sodium Chloride 10 ml 01/10/22 23:49 Sodium Chloride 0.9% 10 Ml Flush Syringe IV PRN PRN LINE FLUSH <NESTOR CLEMENS E - Last Filed: 01/12/22 07:23> Assessment and Plan Assessment and plan: I saw and evaluated the patient. I agree with the findings and the plan of care as documented in the Nurse Practitioner's~note, with the following corrections and additions. On my initial examination of the patient. He was breathing 45 breaths per minute and on BiPAP, was noxious with each removal of the BiPAP mask and desaturated. I discussed with the who told me that he has been in the situation for quite some time since presentation to the ED. We immediately contacted the division manager and decision was made to intubate the patient. The ER physician was pressures enough to intubate the patient after fully explaining the risk and benefits to the family. Advanced care planning was discussed with the patient for 35 minutes. CODE STATUS remains full code. We also initiated diuresis for the patient while monitoring her renal function which had taken a slight bump. 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 Patient's clinical condition remains guarded Hospitalist Physical - Constitutional Vitals: Temp Pulse Resp BP Pulse Ox 101.1 F H 94 H 30 H 119/75 100 01/11/22 10:38 01/12/22 03:43 01/12/22 05:00 01/12/22 03:43 01/12/22 05:55 HEART Score - HEART Score Troponin: Troponin T 0.075 ng/mL (0.00-0.029) H D 01/11/22 04:20 Results - Labs CBC & Chem 7: 01/10/22 21:47 01/11/22 19:41 Labs: Laboratory Last Values WBC 5.5 K/mm3 (4.5-11.0) 01/10/22 21:47 RBC 4.79 M/mm3 (3.65-5.03) 01/10/22 21:47 Hgb 13.3 gm/dl (11.8-15.2) 01/10/22 21:47 Hct 41.2 % (35.5-45.6) 01/10/22 21:47 MCV 86 fl (84-94) 01/10/22 21:47 MCH 28 pg (28-32) 01/10/22 21:47 MCHC 32 % (32-34) 01/10/22 21:47 RDW 19.5 % (13.2-15.2) H 01/10/22 21:47 Plt Count 165 K/mm3 (140-440) 01/10/22 21:47 Lymph % (Auto) 6.0 % (13.4-35.0) L 01/10/22 21:47 [place] % (Auto) 6.1 % (0.0-7.3) 01/10/22 21:47 Eos % (Auto) 1.2 % (0.0-4.3) 01/10/22 21:47 Baso % (Auto) 0.8 % (0.0-1.8) 01/10/22 21:47 Lymph # (Auto) 0.3 K/mm3 (1.2-5.4) L 01/10/22 21:47 [place] # (Auto) 0.3 K/mm3 (0.0-0.8) 01/10/22 21:47 Eos # (Auto) 0.1 K/mm3 (0.0-0.4) 01/10/22 21:47 Baso # (Auto) 0.0 K/mm3 (0.0-0.1) 01/10/22 21:47 Seg Neutrophils % 85.9 % (40.0-70.0) H 01/10/22 21:47 Seg Neutrophils # 4.7 K/mm3 (1.8-7.7) 01/10/22 21:47 PT 36.1 Sec. (12.2-14.9) H 01/12/22 05:10 INR 3.09 (0.87-1.13) H 01/12/22 05:10 APTT 38.8 Sec. (24.2-36.6) H 01/10/22 21:47 ABG pH 7.418 pH Units (7.350-7.450) 01/12/22 05:20 ABG pCO2 35.4 mm Hg 01/12/22 05:20 ABG pO2 194.1 mm Hg (80.0-90.0) H 01/12/22 05:20 ABG HCO3 22.3 mmol/L (20.0-26.0) 01/12/22 05:20 ABG O2 Saturation 99.2 % (95.0-99.0) H 01/12/22 05:20 ABG O2 Content 17.9 (0.0-44) 01/12/22 05:20 ABG Base Excess -1.6 mmol/L (-2.0-3.0) 01/12/22 05:20 ABG Hemoglobin 12.7 gm/dl (14.0-18.0) L 01/12/22 05:20 ABG Carboxyhemoglobin 0.8 % (0.0-5.0) 01/12/22 05:20 ABG Methemoglobin 0.5 % (0.0-1.5) 01/12/22 05:20 Oxyhemoglobin 97.9 % (95.0-99.0) 01/12/22 05:20 FiO2 70 % 01/12/22 05:20 Sodium 139 mmol/L (137-145) 01/11/22 19:41 Potassium 4.4 mmol/L (3.6-5.0) D 01/11/22 19:41 Chloride 103.5 mmol/L (98-107) 01/11/22 19:41 Carbon Dioxide 18 mmol/L (22-30) L 01/11/22 19:41 Anion Gap 22 mmol/L 01/11/22 19:41 BUN 34 mg/dL (9-20) H 01/11/22 19:41 Creatinine 2.2 mg/dL (0.8-1.3) H D 01/11/22 19:41 Estimated GFR 38 ml/min 01/11/22 19:41 BUN/Creatinine Ratio 15 % 01/11/22 19:41 Glucose 153 mg/dL (75-100) H 01/11/22 19:41 POC Glucose 155 mg/dL (70-105) H 01/12/22 00:24 Lactic Acid 3.80 mmol/L (0.7-2.0) H* 01/12/22 05:10 Calcium 8.7 mg/dL (8.4-10.2) 01/11/22 19:41 Phosphorus 1.70 mg/dL (2.5-4.5) L 01/11/22 19:41 Magnesium 4.80 mg/dL (1.7-2.3) H 01/11/22 19:41 Total Bilirubin 1.30 mg/dL (0.1-1.2) H 01/10/22 21:47 AST 28 units/L (5-40) 01/10/22 21:47 ALT 38 units/L (7-56) 01/10/22 21:47 Alkaline Phosphatase 55 units/L (35-129) 01/10/22 21:47 Troponin T 0.075 ng/mL (0.00-0.029) H D 01/11/22 04:20 C-Reactive Protein 13.20 mg/dL (0.00-1.30) H 01/12/22 05:10 Total Protein 6.7 g/dL (6.3-8.2) 01/10/22 21:47 Albumin 3.9 g/dL (3.9-5) 01/10/22 21:47 Albumin/Globulin Ratio 1.4 % 01/10/22 21:47 Triglycerides 94 mg/dL (2-149) 01/10/22 21:47 Cholesterol 113 mg/dL (50-199) 01/10/22 21:47 LDL Cholesterol Direct 72 mg/dL (50-130) 01/10/22 21:47 HDL Cholesterol 35 mg/dL (40-59) L 01/10/22 21:47 Cholesterol/HDL Ratio 3.22 % 01/10/22 21:47 Blood Type B POSITIVE 01/10/22 21:47 Antibody Screen Negative 01/10/22 21:47 Microbiology: Microbiology 01/11/22 19:41 Peripheral/Venous Blood Culture - Preliminary Culture in Progress 01/11/22 19:41 Peripheral/Venous Blood Culture - Preliminary Culture in Progress Active Medications - Current Medications Current Medications: Generic Name Dose Route Start Last Admin Trade Name Freq PRN Reason Stop Dose Admin Acetaminophen 650 mg 01/10/22 23:49 Acetaminophen 325 Mg Tab PO Q6H PRN Pain MILD(1-3)/Fever >100.5/NÚÑEZ Albuterol 2.5 mg 01/11/22 00:19 Albuterol 2.5 Mg/3 Ml Nebu IH Q4HRT PRN Shortness Of Breath Atorvastatin Calcium 80 mg 01/11/22 22:00 01/11/22 22:16 Atorvastatin 40 Mg Tab FEEDTUBE 80 mg QHS SHAKEEL Administration Carvedilol 25 mg 01/11/22 13:00 01/11/22 22:16 Carvedilol 25 Mg Tab FEEDTUBE Not Given BID SHAKEEL Dextrose 50 ml 01/10/22 23:49 Dextrose 50% In Water (25gm) 50 Ml Syringe IV Q30MIN PRN Hypoglycemia Protocol Famotidine 20 mg 01/11/22 22:00 01/11/22 22:16 Famotidine 20 Mg/2 Ml Inj IV 20 mg BID SHAKEEL Administration Fentanyl 50 mcg 01/11/22 09:28 Fentanyl 100 Mcg/2 Ml Inj IV Q10MIN PRN ANALGESIA Furosemide 40 mg 01/11/22 06:00 01/12/22 05:22 Furosemide 40 Mg/4 Ml Inj IV 40 mg 0600,1800 SHAKEEL Administration Heparin Sodium (Porcine) 5,000 unit 01/11/22 22:00 01/12/22 05:23 Heparin 5,000 Unit/1 Ml Vial SUB-Q 5,000 unit Q8HR SHAKEEL Administration Amiodarone HCl 900 mg/ 500 mls @ 33.333 mls/hr 01/10/22 22:00 01/12/22 00:14 Dextrose IV 0.5 mg/min DIRECT SHAKEEL 16.667 mls/hr Administration Protocol 1 MG/MIN Propofol 1,000 mg in 100 mls @ 3.538 mls/hr 01/11/22 10:00 01/12/22 05:34 Diprivan 10 Mg/Ml IV 15 mcg/kg/min TITR SHAKEEL 10.614 mls/hr Titration Protocol 5 MCG/KG/MIN Fentanyl Citrate 2,000 mcg in 100 mls @ 5.897 mls/hr 01/11/22 10:00 Fentanyl Drip Premix IV TITR SHAKEEL Protocol 1 MCG/KG/HR Ceftriaxone Sodium 2 gm in 100 mls @ 200 mls/hr 01/11/22 11:00 01/11/22 14:26 Rocephin/Ns 2 Gm/100 Ml IV 200 mls/hr Q24H SHAKEEL Administration Protocol Azithromycin 500 mg in 250 mls @ 250 mls/hr 01/11/22 12:00 01/11/22 15:02 Zithromax/Ns IV 250 mls/hr Q24H SHAKEEL Administration Protocol Vasopressin 20 unit/ Sodium 101 mls @ 9.09 mls/hr 01/11/22 14:00 01/12/22 00:15 Chloride IV 0.03 units/min TITR SHAKEEL 9.09 mls/hr Administration Protocol 0.03 UNITS/MIN NORepinephrine/NS 8 MG-250 ML 8 mg in 250 mls @ 3.75 mls/hr 01/11/22 14:00 01/12/22 00:15 Norepinephrine/Ns 8 Mg-250 Ml (Double Conc) IV 16 mcg/min TITRATE SHAKEEL 30 mls/hr Titration Protocol 2 MCG/MIN Dobutamine HCl/Dextrose 500 mg in 250 mls @ 17.69 mls/hr 01/11/22 14:00 01/11/22 15:13 Dobutrex Drip 500mg/D5w 250ml IV 0 mcg/kg/min DIRECT SHAKEEL 0 mls/hr Infusion Protocol 5 MCG/KG/MIN Insulin Human Lispro 0 unit 01/11/22 12:00 01/12/22 05:32 Insulin Lispro 100 Unit/Ml SUB-Q 2 unit Q6HR SHAKEEL Administration Protocol Magnesium Hydroxide 30 ml 01/10/22 23:49 Magnesium Hydroxide (Mom) Oral Liqd Udc PO Q4H PRN Constipation Ondansetron HCl 4 mg 01/10/22 23:49 Ondansetron 4 Mg/2 Ml Inj IV Q8H PRN Nausea And Vomiting Sodium Chloride 10 ml 01/11/22 10:00 01/12/22 00:38 Sodium Chloride 0.9% 10 Ml Flush Syringe IV Not Given BID SHAKEEL Sodium Chloride 10 ml 01/10/22 23:49 Sodium Chloride 0.9% 10 Ml Flush Syringe IV PRN PRN LINE FLUSH Nutrition/Malnutrition Assess - Dietary Evaluation Nutrition/Malnutrition Findings: Nutrition Notes Start: 01/11/22 12:57 Freq: Status: Active Protocol: Document 01/11/22 12:57 PB (Rec: 01/11/22 13:10 PB [id number]) Nutrition Notes Need for Assessment generated from: MD Order,Education Initial or Follow up Brief Note Current Diagnosis Coronary Artery Disease, Diabetes,Hypertension, Respiratory Failure Other Pertinent Diagnosis ICD Discharge, CHF, Tachycardia, Pulmonary Edema, [place] x2, NINFA, ... Current Diet NPO (since 01/11 10:39). Height 5 ft 9 in Weight 117.934 kg [place] Body Weight (kg) 72.72 BMI 38.4 Weight change and time frame None provided at admission. Weight Status Obese Subjective/Other Information RD consult for nutrition education assessment. Pt was ordered PO diet, but currently is on NPO, due to Respiratory Failure. Pt is on Mechanical Ventilation, O2 saturation @ 69%, according to Vital Signs notes. Pt still in critical condition , not a candidate for Nutrition Education at the time, will assess feasibility on F/U. Percent of energy/protein needs met: Pt currently on NPO. Nutrition Intervention Follow-Up By: 01/18/22 Additional Comments Nutrition education will be provided at F/U, if feasible. Continue monitoring food tolerance, %PO intake of meals , and BM.
[2022-01-11] MEDS ORDERED: NORepinephrine/NS 8 MG-250 ML 8 MG/250 ML INFUS..BTL IV ONE (13:21)
[2022-01-11] MEDS ORDERED: DOBUTamine/D5W 500 MG/250 ML 500 MG/250 ML BAG IV ONE (13:38)
--- NOTE | 2022-01-11 13:44 | Consultation ---
History of Present Illness Consult date: 01/11/22 Requesting physician: NESTOR CLEMENS Reason for consult: other (Acute hypoxemic resp failure; cardiogenic-septic shock; acute renal failure) History of present illness: This is a 56-year-old AA male with known past medical history of TX, aortic regurgitation, non-obstructive CAD, HFrEF, s/p AICD, diabetes, hyperlipidemia, and hypertension admitted for AICD discharge. Decompensated in the ED s/p emergent intubation now on ventilatory support, in fulminant pulmonary edema. [place] frothy sputum noted in ETT, fulminant pulmonary edema. Additional 40mg Iv lasix administered. Patient is Currently on high vent setting, 100% Fio2 and 16 of Peep. SPO2 remains labile, repeat ABG pending. ST with BBB noted on the monitor, on amiodarone gtt for VTach per Cardio, VSS, echo pending. Critical care consult placed. Patient seen and examined. Vitals, labs , medications, chart reviewed. Hypotensive and hypoxic. Vent setting: PRVC- 100%,16,30,400 Right femoral CVL and femoral arterial line placed by LINESPERSON under my supervision in the ICU Dobutamine added to the norepinephrine infusion- patient seems to have a combination of cardiogenic and septic shock. Increased sedation for patient-ventilator synchrony Past History Past Medical History: acute TX, diabetes, hypertension, hyperlipidemia Past Surgical History: Other (AICD) Social history: no significant social history Family history: no significant family history Medications and Allergies Allergies Allergy/AdvReac Type Severity Reaction Status Date / Time aspirin AdvReac Unknown Verified 01/10/22 21:41 Home Medications Medication Instructions Recorded Confirmed Last Taken Type Isosorbide Mononitrate [Isosorbide 30 mg PO DAILY #30 tab.er.24h 08/20/13 01/14/22 01/15/17 08:00 Rx Mononitrate ER] carvediloL [Coreg] 25 mg PO BID #60 tablet 08/20/13 01/14/22 09/22/18 Rx Furosemide [Lasix] 40 mg PO DAILY #30 tablet 09/17/13 01/14/22 01/15/17 08:00 Rx AtorvaSTATin [Lipitor] 80 mg PO QHS #30 tablet 01/19/17 01/14/22 Unknown Rx amLODIPine 10 mg PO DAILY 09/23/18 01/14/22 09/22/18 History cloNIDine-TTS PATCH [Catapres-Tts 1 patch TD Q7D 09/23/18 01/14/22 09/21/18 History 0.1MG Patch] hydrALAZINE [Apresoline TAB] 50 mg PO TID 09/23/18 01/14/22 09/22/18 History metFORMIN [Glucophage] 500 mg PO BID 09/23/18 01/14/22 Unknown History Potassium Chloride [K-Dur] 10 meq PO QDAY 03/28/19 01/14/22 Unknown History Warfarin [Coumadin] 2.5 mg PO QDAY 03/28/19 01/14/22 Unknown History ISOSORBIDE MONOnitrate [Imdur ER] 30 mg PO QDAY #30 tablet 03/29/19 01/14/22 Unknown Rx Warfarin [Coumadin] 7.5 mg PO DAILY@1700 tablet 03/30/19 01/14/22 Unknown Rx Active Meds: Active Medications Acetaminophen (Acetaminophen 325 Mg Tab) 650 mg PO Q6H PRN PRN Reason: Pain MILD(1-3)/Fever >100.5/NÚÑEZ Albuterol (Albuterol 2.5 Mg/3 Ml Nebu) 2.5 mg IH Q4HRT PRN PRN Reason: Shortness Of Breath Atorvastatin Calcium (Atorvastatin 40 Mg Tab) 80 mg FEEDTUBE QHS SHAKEEL Carvedilol (Carvedilol 25 Mg Tab) 25 mg FEEDTUBE BID SHAKEEL Dextrose (Dextrose 50% In Water (25gm) 50 Ml Syringe) 50 ml IV Q30MIN PRN; Protocol PRN Reason: Hypoglycemia Fentanyl (Fentanyl 100 Mcg/2 Ml Inj) 50 mcg IV Q10MIN PRN PRN Reason: ANALGESIA Furosemide (Furosemide 40 Mg/4 Ml Inj) 40 mg IV 0600,1800 SHAKEEL Last Admin: 01/11/22 06:05 Dose: 40 mg Furosemide (Furosemide 40 Mg/4 Ml Inj) 40 mg IV ONCE@0845 SHAKEEL Stop: 01/11/22 13:45 Last Admin: 01/11/22 08:45 Dose: 40 mg Amiodarone HCl 900 mg/ (Dextrose) 500 mls @ 33.333 mls/hr IV DIRECT SHAKEEL; Protocol Last Titration: 01/11/22 10:30 Dose: 0.5 mg/min, 16.667 mls/hr Propofol (Diprivan 10 Mg/Ml) 1,000 mg in 100 mls @ 3.538 mls/hr IV TITR SHAKEEL; Protocol Last Titration: 01/11/22 10:36 Dose: 5 mcg/kg/min, 3.538 mls/hr Fentanyl Citrate (Fentanyl Drip Premix) 2,000 mcg in 100 mls @ 5.897 mls/hr IV TITR SHAKEEL; Protocol Ceftriaxone Sodium (Rocephin/Ns 2 Gm/100 Ml) 2 gm in 100 mls @ 200 mls/hr IV Q24H SHAKEEL; Protocol Azithromycin (Zithromax/Ns) 500 mg in 250 mls @ 250 mls/hr IV Q24H SHAKEEL; Protocol Vasopressin 20 unit/ Sodium (Chloride) 101 mls @ 9.09 mls/hr IV TITR SHAKEEL; Protocol NORepinephrine/NS 8 MG-250 ML (Norepinephrine/Ns 8 Mg-250 Ml (Double Conc)) 8 mg in 250 mls @ 3.75 mls/hr IV TITRATE SHAKEEL; Protocol Insulin Human Lispro (Insulin Lispro 100 Unit/Ml) 0 unit SUB-Q Q6HR SHAKEEL; Protocol Lorazepam (Lorazepam 2 Mg/Ml Vial) 1 mg IV ONCE@0845 [facility] Stop: 01/11/22 13:45 Last Admin: 01/11/22 09:00 Dose: Not Given Magnesium Hydroxide (Magnesium Hydroxide (Mom) Oral Liqd Udc) 30 ml PO Q4H PRN PRN Reason: Constipation Ondansetron HCl (Ondansetron 4 Mg/2 Ml Inj) 4 mg IV Q8H PRN PRN Reason: Nausea And Vomiting Sodium Chloride (Sodium Chloride 0.9% 10 Ml Flush Syringe) 10 ml IV BID SHAKEEL Sodium Chloride (Sodium Chloride 0.9% 10 Ml Flush Syringe) 10 ml IV PRN PRN PRN Reason: LINE FLUSH Review of Systems ROS unobtainable: due to endotracheal tube, due to mental status Physical Examination Vital signs: Vital Signs Pulse Resp Pulse Ox 140 H 24 96 01/10/22 21:34 01/10/22 21:34 01/10/22 21:34 General appearance: appears uncomfortable, other (Atraumatic, normocephalic, ETT to MVS) Eyes: non-icteric ENT: oropharynx dry Neck: supple, no lymphadenopathy, JVD Effort: very labored Ascultation: Bilateral: diminished breath sounds, rhonchi Cardiovascular: other (Tachycardia, S1,S2) Gastrointestinal: soft, non-tender, non-distended Extremities: cool, edema other (moves all extremities, sedated) Results - Laboratory Findings CBC and BMP: 01/15/22 04:45 01/15/22 04:45 ABG ABG pH 7.265 pH Units (7.350-7.450) L 01/11/22 09:55 ABG pCO2 48.1 mm Hg 01/11/22 09:55 ABG pO2 40.4 mm Hg (80.0-90.0) L 01/11/22 09:55 ABG O2 Saturation 64.5 % (95.0-99.0) L 01/11/22 09:55 PT/INR, D-dimer PT 27.8 Sec. (12.2-14.9) H 01/10/22 21:47 INR 2.25 (0.87-1.13) H 01/10/22 21:47 Abnormal lab findings: Abnormal Labs 01/10/22 01/10/22 01/10/22 21:47 21:47 21:47 RDW 19.5 H Lymph % (Auto) 6.0 L Lymph # (Auto) 0.3 L Seg Neutrophils % 85.9 H PT 27.8 H INR 2.25 H APTT 38.8 H ABG pH ABG pO2 ABG O2 Saturation ABG Base Excess Oxyhemoglobin Sodium 147 H Potassium 3.4 L Chloride 109.0 H Carbon Dioxide BUN 24 H Creatinine Glucose 149 H POC Glucose Magnesium Total Bilirubin 1.30 H Troponin T 0.063 H HDL Cholesterol 35 L 01/10/22 01/11/22 01/11/22 21:47 00:12 00:15 RDW Lymph % (Auto) Lymph # (Auto) Seg Neutrophils % PT INR APTT ABG pH ABG pO2 ABG O2 Saturation ABG Base Excess Oxyhemoglobin Sodium Potassium Chloride Carbon Dioxide BUN Creatinine Glucose POC Glucose 130 H Magnesium 1.50 L Total Bilirubin Troponin T 0.058 H HDL Cholesterol 01/11/22 01/11/22 01/11/22 04:20 04:20 09:19 RDW Lymph % (Auto) Lymph # (Auto) Seg Neutrophils % PT INR APTT ABG pH ABG pO2 ABG O2 Saturation ABG Base Excess Oxyhemoglobin Sodium Potassium Chloride Carbon Dioxide 21 L BUN 23 H Creatinine 1.4 H Glucose 157 H POC Glucose 236 H Magnesium Total Bilirubin Troponin T 0.075 H D HDL Cholesterol 01/11/22 09:55 RDW Lymph % (Auto) Lymph # (Auto) Seg Neutrophils % PT INR APTT ABG pH 7.265 L ABG pO2 40.4 L ABG O2 Saturation 64.5 L ABG Base Excess -5.9 L Oxyhemoglobin 63.1 L Sodium Potassium Chloride Carbon Dioxide BUN Creatinine Glucose POC Glucose Magnesium Total Bilirubin Troponin T HDL Cholesterol - Diagnostic Findings Chest x-ray: image reviewed (Cardiomegaly, ETT, ICD, Bilateral alveolar infiltrates) Assessment and Plan Acute Hypoxic Respiratory Failure on MVS Fulminant Pulmonary Edema/ Possible CAP Ventricular Tachycardia - Implantable Cardioverter-Defibrillator (ICD) discharge CAD (Coronary Artery Disease) Congestive Heart Failure with Reduce EF h/o HTN (Hypertension) Acute Kidney Injury(MARCIO) Hypokalemia-improved Possible CAP Type 2 Diabetes Mellitus -wean vasopressor support for MAP>65 -add Dobutamine at 2.5, patient had increased ectopy at 5mcg -Titrate supplemental oxygen oxygen for SpO2 89-92% -Lung protective strategies,ARDS net protocol -CXR, ABG daily -Propofol titrate to patient-ventilator synchrony -Monitoring renal function, hemodynamics and electrolyte profile -Avoid nephrotoxins, adjust all medications for GFR and CrCL -[place] catheter in this critically ill patient requiring strict intake and output monitoring. Daily assessment for ongoing need for Bust[place]ante catheter -Replete electrolytes as clinically indicated -Empiric antibiotics for CAP ( Azithromycin and Ceftriaxone) - deescalate based on culture data and clinical response -Blood cultures, tracheal aspirate for cultures -Accuchecks with glycemic control, target blood glucose 140-180 mg/dL. Avoid hypoglycemia -VTE prophylaxis- Heparin -Stress ulcer prophylaxis-Famotidine -Mobility, frequent turning, off loading per facility protocol to prevent pressure ulcers -Maintain sleep wake cycle, avoid benzodiazepines. -Limit delirium -Enteric nutritional support - Nutrition consult placed -Supportive blood transfusion, keep HgB>7g/dL -Get transthoraic echocardiogram -replace electrolytes and address as clinically indicated CONDITION:CRITICAL PROGNOSIS: GUARDED CODE STATUS; FULL CODE Discussed in interdisciplinary rounds Advance Care Planning Disease education data, care plan, diagnoses, and prognosis were discussed with patient's and father at the bedside. Patient is a FULL code. Patient's and father acknowledged understanding and agreement with current care plan. The high probability of a clinically significant, sudden or life threatening deterioration of the respiratory, cardiovascular, renal and renal systems required my full and direct attention, intervention and personal management. The aggregate critical care time was [75] minutes. This time is in addition to time spent performing reported procedures but includes the following: [x] Data Review and interpretation [x] Patient assessment and monitoring of vital signs [x] Documentation [x] Medication orders and management
[2022-01-11] MEDS ORDERED: DOBUTamine/D5W 500 MG/250 ML 500 MG/250 ML BAG IV SCH (14:00)
[2022-01-11] MEDS: NORepinephrine/NS 8 MG-250 ML 8 MG/250 ML INFUS..BTL IV SCH (14:24)
[2022-01-11] MEDS: cefTRIAXone/NS 2 GM/100 ML 2 GM/100 ML BAG IV SCH (14:26)
--- NOTE | 2022-01-11 14:32 | Procedure Note ---
Date of procedure: 01/11/22 Pre-op diagnosis: Shock- Cardiogenic vs Septic Post-op diagnosis: same Procedure: Right Femoral Arterial Line Placement Patient was evaluated and required arterial line placement for Hemodynanic monitoring due to high vasopressor requirement. Informed consent was obtained from patient's , Dulce Solorio A time-out was completed verifying correct patient, procedure, site, and positioning. Hand hygiene were performed immediately prior to the procedure and sterile technique was used throughout the procedure. The right groin was prepped using chlorhexidine scrubs and draped in sterile fashion. Anesthesia was achieved using 1% lidocaine. Utilizing the Seldinger technique, a finder needle was inserted into the right femoral artery under ultrasound guidance, pulsating arterial blood return was obtained, then a guidewire was advanced easily into the artery. The catheter was then advanced over the wire and the needle and wire were withdrawn. The catheter was then connected to the foot and ankle surgeon and zeroed, appropriate waveform and blood pressure tracing was observed on the monitor. The catheter was sutured in place, a Biopatch was placed at the insertion site and covered with a sterile dressing. The patient tolerated the procedure well and no complications noted. Total Time Spent with Patient (Minutes): 60 minutes Anesthesia: local Surgeon: TATUM MIRELES Estimated blood loss: minimal Condition: critical Disposition: ICU
--- NOTE | 2022-01-11 14:32 | Procedure Note ---
Date of procedure: 01/11/22 Pre-op diagnosis: Shock- Cardiogenic vs Septic Post-op diagnosis: same Procedure: Right Femoral Central Line Placement Patient was evaluated and required Central line placement due to vasopressor requirement Informed Consent obtained from patient's , Dulce Solorio A time-out was completed verifying correct patient, procedure, site, and positioning. Hand hygiene were performed immediately prior to the procedure and sterile technique was used throughout the procedure. Hand hygiene were performed immediately prior to the procedure and sterile technique was used throughout the procedure. The patients right groin was prepped with iodine and chlor hexidine scrub then draped in a sterile fashion. 1% Lidocaine was used to anesthetize the surrounding skin area. Then the right femoral vein was accessed using ultrasound guidance and a triple lumen catheter was introduced using the Seldinger technique. The catheter threaded smoothly over the guidewire and advanced easily into the vein and brisk blood return was observed from each lumen. Each lumen were flushed and clamped, then the catheter was sutured in place, a Biopatch was placed at the insertion site, and covered with a sterile dressing. Patient tolerated the procedure well, no signs of any adverse reaction noted. CVC is okay to use. Total Time Spent with Patient (Minutes): 60 minutes Anesthesia: local Surgeon: TATUM MIRELES Estimated blood loss: minimal Condition: critical Disposition: ICU
[2022-01-11 14:33] LABS: ABG Base Excess -3.5 mmol/L (-2.0-3.0); ABG HCO3 20.8 mmol/L (20.0-26.0); ABG Methemoglobin 0.6 % (0.0-1.5); ABG PCO2 35.4 mm Hg; ABG PH 7.387 pH Units (7.350-7.450); ABG PO2 84.2 mm Hg (80.0-90.0)
[2022-01-11] MEDS: AZITHROMYCIN/NS 500 MG/250 ML 500 MG/250 ML BAG IV SCH (15:02)
[2022-01-11] MEDS ORDERED: AMIODARONE 150 MG in DEXTROSE 5% IN WATER 97 ML IV NR (15:12)
[2022-01-11] MEDS: carvediloL 25 MG TAB FEEDTUBE SCH ×2 (15:23→22:16)
[2022-01-11] MEDS: INSULIN LISPRO 100 UNIT/ML SUB-Q SCH ×2 (17:56→19:21)
[2022-01-11 20:18] LABS: Calcium 8.7 mg/dL (8.4-10.2)
[2022-01-11] MEDS: HEPARIN 5,000 UNIT/1 ML VIAL SUB-Q SCH (22:16)
[2022-01-11] MEDS: FAMOTIDINE 20 MG/2 ML INJ IV SCH (22:16)
[2022-01-12] MEDS: AMIODARONE 900 MG in DEXTROSE 5% IN WATER 482 ML IV SCH ×3 (00:14→22:20)
[2022-01-12] MEDS: VASOPRESSIN 20 UNIT in SODIUM CHLORIDE 0.9% 100 ML IV SCH ×2 (00:15→09:39)
[2022-01-12] MEDS: INSULIN LISPRO 100 UNIT/ML SUB-Q SCH ×4 (00:38→17:23)
[2022-01-12] MEDS: FUROSEMIDE 40 MG/4 ML INJ IV SCH (05:22)
[2022-01-12] MEDS: HEPARIN 5,000 UNIT/1 ML VIAL SUB-Q SCH (05:23)
[2022-01-12 05:32] LABS: INR 3.09 (0.87-1.13)
[2022-01-12 05:33] LABS: ABG HCO3 18.5 mmol/L (20.0-26.0); ABG Methemoglobin 0.6 % (0.0-1.5); ABG Oxygen Saturation 99.3 % (95.0-99.0); ABG PCO2 30.3 mm Hg; ABG PH 7.403 pH Units (7.350-7.450); ABG PO2 218.2 mm Hg (80.0-90.0)
[2022-01-12 05:38] LABS: ABG Base Excess -1.6 mmol/L (-2.0-3.0); ABG HCO3 22.3 mmol/L (20.0-26.0); ABG Methemoglobin 0.5 % (0.0-1.5); ABG Oxygen Saturation 99.2 % (95.0-99.0); ABG PCO2 35.4 mm Hg; ABG PH 7.418 pH Units (7.350-7.450); ABG PO2 194.1 mm Hg (80.0-90.0)
[2022-01-12] MEDS: NORepinephrine/NS 8 MG-250 ML 8 MG/250 ML INFUS..BTL IV SCH (08:54)
[2022-01-12] MEDS: FAMOTIDINE 20 MG/2 ML INJ IV SCH (08:59)
[2022-01-12] MEDS: carvediloL 25 MG TAB FEEDTUBE SCH (08:59)
[2022-01-12] MEDS ORDERED: MINERAL OIL/PETROLATUM, WHITE OPHTH OINT 3.5 GM OU PRN (09:02)
[2022-01-12] MEDS ORDERED: LIP THERAPY VASELINE TP PRN (09:02)
[2022-01-12 09:48] LABS: Hematocrit 43.3 % (35.5-45.6); Hemoglobin 13.9 gm/dl (11.8-15.2); Mean Corpuscular HGB Conc 32 % (32-34); Mean Corpuscular Volume 86 fl (84-94); Platelet Count 208 K/mm3 (140-440); Red Blood Count 5.03 M/mm3 (3.65-5.03)
[2022-01-12 09:56] LABS: Albumin 3.3 g/dL (3.9-5); Calcium 8.6 mg/dL (8.4-10.2)
[2022-01-12] MEDS: cefTRIAXone/NS 2 GM/100 ML 2 GM/100 ML BAG IV SCH (10:57)
[2022-01-12] MEDS: AZITHROMYCIN/NS 500 MG/250 ML 500 MG/250 ML BAG IV SCH (11:02)
[2022-01-12] MEDS: SENNOSIDES/DOCUSATE SODIUM 8.6/50 MG TAB FEEDTUBE SCH ×2 (11:02→22:20)
--- NOTE | 2022-01-12 11:16 | XRay Report ---
CHEST - 1 VIEW 0936 hours INDICATION: F/U respiratory failure COMPARISON: Yesterday FINDINGS: Support devices: Stable support device positioning. Heart: Stable cardiomegaly Lungs/pleura: Bilateral perihilar edema or infiltrates have resolved. The lungs are clear. No pneumo thorax. Additional findings: None. IMPRESSION: Stable cardiomegaly. Resolution of the bilateral pulmonary edema or infiltrates. Signer Name: Cristóbal Cruz Jr, MD Signed: 01/12/2022 11:11 AM Workstation Name: [id number]
--- NOTE | 2022-01-12 12:10 | Progress Note ---
<TATUM MIRELES - Last Filed: 01/12/22 20:50> Assessment and Plan Assessment and plan: This is a 56-year-old AA male with known past medical history of ND, aortic regurgitation, non-obstructive CAD, HFrEF, s/p AICD, diabetes, hyperlipidemia, and hypertension admitted for AICD discharge. Decompensated in the ED s/p emerge nt intubation now on ventilatory support, in fulminant pulmonary edema. Hospital Course to Date: 01/11: S/p emergent intubation by the ED physician due to increase WOB, tachypnea, and lethagy. [place] frothy sputum noted in ETT, fulminant pulmonary edema. Additional 40mg Iv lasix administered. Patient is Currently on high vent setting, 100% Fio2 and 16 of Peep. SPO2 remains labile, repeat ABG pending. CCM on consult for vent management. ST with BBB noted on the monitor, on amiodarone gtt for VTach per Cardio, VSS, echo pending. Monitor electrolytes and replete as needed. 01/12: Stable on thevent this am. This am ABG and Cxr noted. Now on pressors for hypotension, remains on amiodarone gtt. Accelerated junctional rhythm noted on the monitor this am, Dobutamine gtt held. 2D Echo pending. With worsen renal function this am, now oliguric, only 200cc in last 24hrs. IV lasix held, Nephrology consulted. Patient remains coagulopathic, per records patient was on Coumadin at home. INR 3.09 this am, Hold AC for now. Assessment and Plan #Acute Hypoxic Respiratory Failure #Fulminant Pulmonary Edema-improved #Possible CAP - Emergently intubated in the ED on 01/11 due to increase WOB, tachypnea, and lethagy - [place] frothy sputum noted in ETT - CXR noted, suggesting pulmonary edema but can't exclude infectious Etiology - Vent setting: PRVC-50%,14,30,400 - This am ABG noted - Repeat CXR with resolution of the bilateral pulmonary edema or infiltrates - Continue empiric IV Abx initiated: Rocephin, Azitho for now - CCM consulted, appreciate recommendations - Continue to wean vent per CCM - VAP bundle addressed - Aspiration precaution HOB above 30 - Daily SBT and SAT trials as tolerated - Daily ABG and CXR - Continue SPO2 monitoring for SPO2 goal above 92% #Ventricular Tachycardia #Implantable Cardioverter-Defibrillator (ICD) discharge #CAD (Coronary Artery Disease) #Congestive Heart Failure with Reduce EF #Elevated troponin #HTN (Hypertension) - Presented with Chest pain - Went into in V.TACH in the ED, AICD discharged - Amiodarone bolus and drip was initiated per protocol - Troponin are elevated X2, probably due to demand ischemia - [address] with RBBB - will call order clerk Seamstress Fitter contacted in the ED, no evidence of ischemia noted at that time - s/p dobutamine gtt - Currently in Accelerated junctional rhythm - Lasix held due to worsen renal function - Resume home medications - Cardiology on consult, appreciated recommendations - Continue blood pressure monitor per protocol - Maintain MAP above 65 - AC on hold, INR 3.09, patient was on coumadin at home - Echo pending #Acute Kidney Injury(MARCIO) #Hypokalemia-improved - mild increased in scr. this am, most likely prerenal - S/p 80mg of IV lasix - Now oliguric with worsen renal function - IV lasix held - Nephrology consulted - Continue to trend BMP - Strict intake and output - Avoid nephrotoxic medications - Monitor and replace electrolytes as needed #Possible CAP - Currently with high fevers TMAX 101.1 - CXR noted, suggesting pulmonary edema but can't exclude infectious Etiology - COVID PCR negative - Blood cultures, UA, and sputum culture pending - Empiric IV Abx initiated - F/u on cultures - Daily CBC monitor - Consider ID consult if febrile and if leukocytosis occur #Type 2 Diabetes Mellitus - BG check and SSI Q6hrs - Avoid hypoglycemia - While critically ill target blood glucose of 140-180 #GI/DVT Prophylaxis - PPI- Pepcid - SCDs to bilateral lower extremities while in bed #Advance Care Planning - Disease education data, care plan, diagnoses, and prognosis were discussed with patient's at the bedside. Patient is a FULL code. Patient's acknowledged understanding and agreement with current care plan. The high probability of a clinically significant, sudden or life threatening deterioration of the [multiple] system(s) required my full and direct attention, intervention and personal management. The aggregate critical care time was [60] minutes. This time is in addition to time spent performing reported procedures but includes the following: [x] Data Review and interpretation [x] Patient assessment and monitoring of vital signs [x] Documentation [x] Medication orders and management Disposition Plan: ICU Total Time Spent with Patient (Minutes): 60 History Interval history: Patient seen and examined in the bedside. Intubated and sedated. On Amiodarone, Levophed, and Vasopressin. With low urine output overnight and this am. Hospitalist Physical - Constitutional Vitals: Temp Pulse Resp BP Pulse Ox 99 F 87 30 H 98/66 99 01/12/22 11:37 01/12/22 11:50 01/12/22 11:39 01/12/22 11:30 01/12/22 11:39 General appearance: Present: no acute distress, obese, other (Intubated and sedated) - EENT Eyes: Present: PERRL - Neck Neck: Present: normal ROM - Respiratory Respiratory effort: normal Respiratory: bilateral: rhonchi - Cardiovascular Rhythm: regular Heart Sounds: Present: S1 & S2 - Extremities Extremities: no ischemia, pulses intact, pulses symmetrical Extremity abnormal: edema - Peripheral Assessment Generalized Edema Type: Non-pitting Edema Degree: 2+ Capillary Refill: < 3 seconds Skin Temperature: Warm Bilateral Lower Extremity Edema Type: Pitting Edema Degree: 2+ Capillary Refill: < 3 seconds Skin Temperature: Warm Peripheral Pulses: within normal limits - Abdominal General gastrointestinal: soft, non-distended, normal bowel sounds - Integumentary Integumentary: Present: warm, dry - Psychiatric Psychiatric: other (Intubated and sedated) - Neurologic Neurologic: other (Intubated and sedated) - Allied Health Allied health notes reviewed: nursing, case management HEART Score - HEART Score EKG: Non-specific Age: 45-65 Risk factors: > 3 risk factors or hx of atherosclerotic disease Troponin: Troponin T 0.075 ng/mL (0.00-0.029) H D 01/11/22 04:20 Troponin: 1-3x normal limit - Critical Actions Critical Actions: 4-6 pts:12-16.6% risk of adverse cardiac event. Should be admitted Results - Labs CBC & Chem 7: 01/12/22 09:38 01/12/22 08:57 Labs: Laboratory Last Values WBC 10.4 K/mm3 (4.5-11.0) 01/12/22 09:38 RBC 5.03 M/mm3 (3.65-5.03) 01/12/22 09:38 Hgb 13.9 gm/dl (11.8-15.2) 01/12/22 09:38 Hct 43.3 % (35.5-45.6) 01/12/22 09:38 MCV 86 fl (84-94) 01/12/22 09:38 MCH 28 pg (28-32) 01/12/22 09:38 MCHC 32 % (32-34) 01/12/22 09:38 RDW 20.0 % (13.2-15.2) H 01/12/22 09:38 Plt Count 208 K/mm3 (140-440) 01/12/22 09:38 Lymph % (Auto) 6.0 % (13.4-35.0) L 01/10/22 21:47 Union % (Auto) 6.1 % (0.0-7.3) 01/10/22 21:47 Eos % (Auto) 1.2 % (0.0-4.3) 01/10/22 21:47 Baso % (Auto) 0.8 % (0.0-1.8) 01/10/22 21:47 Lymph # (Auto) 0.3 K/mm3 (1.2-5.4) L 01/10/22 21:47 Union # (Auto) 0.3 K/mm3 (0.0-0.8) 01/10/22 21:47 Eos # (Auto) 0.1 K/mm3 (0.0-0.4) 01/10/22 21:47 Baso # (Auto) 0.0 K/mm3 (0.0-0.1) 01/10/22 21:47 Seg Neutrophils % 85.9 % (40.0-70.0) H 01/10/22 21:47 Seg Neutrophils # 4.7 K/mm3 (1.8-7.7) 01/10/22 21:47 PT 36.1 Sec. (12.2-14.9) H 01/12/22 05:10 INR 3.09 (0.87-1.13) H 01/12/22 05:10 APTT 38.8 Sec. (24.2-36.6) H 01/10/22 21:47 ABG pH 7.418 pH Units (7.350-7.450) 01/12/22 05:20 ABG pCO2 35.4 mm Hg 01/12/22 05:20 ABG pO2 194.1 mm Hg (80.0-90.0) H 01/12/22 05:20 ABG HCO3 22.3 mmol/L (20.0-26.0) 01/12/22 05:20 ABG O2 Saturation 99.2 % (95.0-99.0) H 01/12/22 05:20 ABG O2 Content 17.9 (0.0-44) 01/12/22 05:20 ABG Base Excess -1.6 mmol/L (-2.0-3.0) 01/12/22 05:20 ABG Hemoglobin 12.7 gm/dl (14.0-18.0) L 01/12/22 05:20 ABG Carboxyhemoglobin 0.8 % (0.0-5.0) 01/12/22 05:20 ABG Methemoglobin 0.5 % (0.0-1.5) 01/12/22 05:20 Oxyhemoglobin 97.9 % (95.0-99.0) 01/12/22 05:20 FiO2 70 % 01/12/22 05:20 Sodium 141 mmol/L (137-145) 01/12/22 08:57 Potassium 4.5 mmol/L (3.6-5.0) 01/12/22 08:57 Chloride 103.2 mmol/L (98-107) 01/12/22 08:57 Carbon Dioxide 21 mmol/L (22-30) L 01/12/22 08:57 Anion Gap 21 mmol/L 01/12/22 08:57 BUN 42 mg/dL (9-20) H 01/12/22 08:57 Creatinine 3.3 mg/dL (0.8-1.3) H 01/12/22 08:57 Estimated GFR 23 ml/min 01/12/22 08:57 BUN/Creatinine Ratio 13 % 01/12/22 08:57 Glucose 178 mg/dL (75-100) H 01/12/22 08:57 POC Glucose 155 mg/dL (70-105) H 01/12/22 00:24 Lactic Acid 3.60 mmol/L (0.7-2.0) H* 01/12/22 09:30 Calcium 8.6 mg/dL (8.4-10.2) 01/12/22 08:57 Phosphorus 1.70 mg/dL (2.5-4.5) L 01/11/22 19:41 Magnesium 4.80 mg/dL (1.7-2.3) H 01/11/22 19:41 Total Bilirubin 1.00 mg/dL (0.1-1.2) 01/12/22 08:57 AST 73 units/L (5-40) H 01/12/22 08:57 ALT 79 units/L (7-56) H 01/12/22 08:57 Alkaline Phosphatase 50 units/L (35-129) 01/12/22 08:57 Troponin T 0.075 ng/mL (0.00-0.029) H D 01/11/22 04:20 C-Reactive Protein 13.20 mg/dL (0.00-1.30) H 01/12/22 05:10 Total Protein 6.2 g/dL (6.3-8.2) L 01/12/22 08:57 Albumin 3.3 g/dL (3.9-5) L 01/12/22 08:57 Albumin/Globulin Ratio 1.1 % 01/12/22 08:57 Triglycerides 94 mg/dL (2-149) 01/10/22 21:47 Cholesterol 113 mg/dL (50-199) 01/10/22 21:47 LDL Cholesterol Direct 72 mg/dL (50-130) 01/10/22 21:47 HDL Cholesterol 35 mg/dL (40-59) L 01/10/22 21:47 Cholesterol/HDL Ratio 3.22 % 01/10/22 21:47 Procalcitonin 42.50 ng/mL (<0.15) 01/12/22 05:10 Blood Type B POSITIVE 01/10/22 21:47 Antibody Screen Negative 01/10/22 21:47 Microbiology: Microbiology 01/11/22 19:41 Peripheral/Venous Blood Culture - Preliminary Culture in Progress 01/11/22 19:41 Peripheral/Venous Blood Culture - Preliminary Culture in Progress Bustamante/IV: Voiding Method Indwelling Catheter Active Medications - Current Medications Current Medications: Generic Name Dose Route Start Last Admin Trade Name Freq PRN Reason Stop Dose Admin Acetaminophen 650 mg 01/10/22 23:49 Acetaminophen 325 Mg Tab PO Q6H PRN Pain MILD(1-3)/Fever >100.5/NÚÑEZ Albuterol 2.5 mg 01/11/22 00:19 Albuterol 2.5 Mg/3 Ml Nebu IH Q4HRT PRN Shortness Of Breath Atorvastatin Calcium 80 mg 01/11/22 22:00 01/11/22 22:16 Atorvastatin 40 Mg Tab FEEDTUBE 80 mg QHS SHAKEEL Administration Dextrose 50 ml 01/10/22 23:49 Dextrose 50% In Water (25gm) 50 Ml Syringe IV Q30MIN PRN Hypoglycemia Protocol Famotidine 10 mg 01/12/22 22:00 Famotidine 20 Mg/2 Ml Inj IV BID SHAKEEL Fentanyl 50 mcg 01/11/22 09:28 Fentanyl 100 Mcg/2 Ml Inj IV Q10MIN PRN ANALGESIA Hydrophilic Ointment 1 applic 01/12/22 09:02 Lip Therapy Vaseline TP Q2HR PRN Dry Lips Propofol 1,000 mg in 100 mls @ 3.538 mls/hr 01/11/22 10:00 01/12/22 09:41 Diprivan 10 Mg/Ml IV 15 mcg/kg/min TITR SHAKEEL 10.614 mls/hr Titration Protocol 5 MCG/KG/MIN Fentanyl Citrate 2,000 mcg in 100 mls @ 5.897 mls/hr 01/11/22 10:00 Fentanyl Drip Premix IV TITR SHAKEEL Protocol 1 MCG/KG/HR Ceftriaxone Sodium 2 gm in 100 mls @ 200 mls/hr 01/11/22 11:00 01/12/22 11:27 Rocephin/Ns 2 Gm/100 Ml IV Infused Q24H SHAKEEL Infusion Protocol Azithromycin 500 mg in 250 mls @ 250 mls/hr 01/11/22 12:00 01/12/22 12:02 Zithromax/Ns IV Infused Q24H SHAKEEL Infusion Protocol Vasopressin 20 unit/ Sodium 101 mls @ 9.09 mls/hr 01/11/22 14:00 01/12/22 09:39 Chloride IV 0.03 units/min TITR SHAKEEL 9.09 mls/hr Administration Protocol 0.03 UNITS/MIN NORepinephrine/NS 8 MG-250 ML 8 mg in 250 mls @ 3.75 mls/hr 01/11/22 14:00 01/12/22 10:12 Norepinephrine/Ns 8 Mg-250 Ml (Double Conc) IV 8 mcg/min TITRATE SHAKEEL 15 mls/hr Titration Protocol 2 MCG/MIN Dobutamine HCl/Dextrose 500 mg in 250 mls @ 17.69 mls/hr 01/11/22 14:00 01/12/22 10:57 Dobutrex Drip 500mg/D5w 250ml IV 0 mcg/kg/min DIRECT SHAKEEL 0 mls/hr Infusion Protocol 5 MCG/KG/MIN Insulin Human Lispro 0 unit 01/11/22 12:00 01/12/22 11:03 Insulin Lispro 100 Unit/Ml SUB-Q 2 unit Q6HR SHAKEEL Administration Protocol Magnesium Hydroxide 30 ml 01/10/22 23:49 Magnesium Hydroxide (Mom) Oral Liqd Udc PO Q4H PRN Constipation Multi-Ingred Cream/Lotion/Oil/Oint 1 applic 01/12/22 09:02 Mineral Oil/Petrolatum, White Ophth Oint 3.5 Gm OU Q4HR PRN Dry Eye(s) Ondansetron HCl 4 mg 01/10/22 23:49 Ondansetron 4 Mg/2 Ml Inj IV Q8H PRN Nausea And Vomiting Senna/Docusate Sodium 1 tab 01/12/22 10:00 01/12/22 11:02 Sennosides/Docusate Sodium 8.6/50 Mg Tab FEEDTUBE 1 tab BID SHAKEEL Administration Sodium Chloride 10 ml 01/11/22 10:00 01/12/22 08:59 Sodium Chloride 0.9% 10 Ml Flush Syringe IV 10 ml BID SHAKEEL Administration Sodium Chloride 10 ml 01/10/22 23:49 Sodium Chloride 0.9% 10 Ml Flush Syringe IV PRN PRN LINE FLUSH Nutrition/Malnutrition Assess - Dietary Evaluation Nutrition/Malnutrition Findings: Nutrition Notes Start: 01/11/22 12:57 Freq: Status: Active Protocol: Document 01/11/22 12:57 PB (Rec: 01/11/22 13:10 PB [id number]) Nutrition Notes Need for Assessment generated from: MD Order,Education Initial or Follow up Brief Note Current Diagnosis Coronary Artery Disease, Diabetes,Hypertension, Respiratory Failure Other Pertinent Diagnosis ICD Discharge, CHF, Tachycardia, Pulmonary Edema, ND x2, NINFA, ... Current Diet NPO (since 01/11 10:39). Height 5 ft 9 in Weight 117.934 kg [place] Body Weight (kg) 72.72 BMI 38.4 Weight change and time frame None provided at admission. Weight Status Obese Subjective/Other Information RD consult for nutrition education assessment. Pt was ordered PO diet, but currently is on NPO, due to Respiratory Failure. Pt is on Mechanical Ventilation, O2 saturation @ 69%, according to Vital Signs notes. Pt still in critical condition , not a candidate for Nutrition Education at the time, will assess feasibility on F/U. Percent of energy/protein needs met: Pt currently on NPO. Nutrition Intervention Follow-Up By: 01/18/22 Additional Comments Nutrition education will be provided at F/U, if feasible. Continue monitoring food tolerance, %PO intake of meals , and BM. <NESTOR CLEMENS - Last Filed: 01/13/22 07:13> Assessment and Plan Assessment and plan: I saw and evaluated the patient. I agree with the findings and the plan of care as documented in the Nurse Practitioner's~note, with the following corrections and additions. Discussed with [employer] MACHINE OPERATOR AND FAMILY UPDATED Hospitalist Physical - Constitutional Vitals: Temp Pulse Resp BP Pulse Ox 98.9 F 68 28 H 99/63 98 01/13/22 04:00 01/13/22 06:15 01/13/22 06:15 01/13/22 06:15 01/13/22 06:15 HEART Score - HEART Score Troponin: Troponin T 0.075 ng/mL (0.00-0.029) H D 01/11/22 04:20 Results - Labs CBC & Chem 7: 01/12/22 09:38 01/12/22 08:57 Labs: Laboratory Last Values WBC 10.4 K/mm3 (4.5-11.0) 01/12/22 09:38 RBC 5.03 M/mm3 (3.65-5.03) 01/12/22 09:38 Hgb 13.9 gm/dl (11.8-15.2) 01/12/22 09:38 Hct 43.3 % (35.5-45.6) 01/12/22 09:38 MCV 86 fl (84-94) 01/12/22 09:38 MCH 28 pg (28-32) 01/12/22 09:38 MCHC 32 % (32-34) 01/12/22 09:38 RDW 20.0 % (13.2-15.2) H 01/12/22 09:38 Plt Count 208 K/mm3 (140-440) 01/12/22 09:38 Lymph % (Auto) 6.0 % (13.4-35.0) L 01/10/22 21:47 Union % (Auto) 6.1 % (0.0-7.3) 01/10/22 21:47 Eos % (Auto) 1.2 % (0.0-4.3) 01/10/22 21:47 Baso % (Auto) 0.8 % (0.0-1.8) 01/10/22 21:47 Lymph # (Auto) 0.3 K/mm3 (1.2-5.4) L 01/10/22 21:47 [place] # (Auto) 0.3 K/mm3 (0.0-0.8) 01/10/22 21:47 Eos # (Auto) 0.1 K/mm3 (0.0-0.4) 01/10/22 21:47 Baso # (Auto) 0.0 K/mm3 (0.0-0.1) 01/10/22 21:47 Seg Neutrophils % 85.9 % (40.0-70.0) H 01/10/22 21:47 Seg Neutrophils # 4.7 K/mm3 (1.8-7.7) 01/10/22 21:47 PT 46.8 Sec. (12.2-14.9) H 01/13/22 04:04 INR 4.25 (0.87-1.13) H 01/13/22 04:04 APTT 38.8 Sec. (24.2-36.6) H 01/10/22 21:47 ABG pH 7.362 pH Units (7.350-7.450) 01/13/22 03:09 ABG pCO2 30.7 mm Hg 01/13/22 03:09 ABG pO2 226.5 mm Hg (80.0-90.0) H 01/13/22 03:09 ABG HCO3 17.0 mmol/L (20.0-26.0) L 01/13/22 03:09 ABG O2 Saturation 99.3 % (95.0-99.0) H 01/13/22 03:09 ABG O2 Content 19.4 (0.0-44) 01/13/22 03:09 ABG Base Excess -7.1 mmol/L (-2.0-3.0) L 01/13/22 03:09 ABG Hemoglobin 13.8 gm/dl (14.0-18.0) L 01/13/22 03:09 ABG Carboxyhemoglobin 1.4 % (0.0-5.0) 01/13/22 03:09 ABG Methemoglobin 0.6 % (0.0-1.5) 01/13/22 03:09 Oxyhemoglobin 97.4 % (95.0-99.0) 01/13/22 03:09 FiO2 50 % 01/13/22 03:09 Sodium 141 mmol/L (137-145) 01/12/22 08:57 Potassium 4.5 mmol/L (3.6-5.0) 01/12/22 08:57 Chloride 103.2 mmol/L (98-107) 01/12/22 08:57 Carbon Dioxide 21 mmol/L (22-30) L 01/12/22 08:57 Anion Gap 21 mmol/L 01/12/22 08:57 BUN 42 mg/dL (9-20) H 01/12/22 08:57 Creatinine 3.3 mg/dL (0.8-1.3) H 01/12/22 08:57 Estimated GFR 23 ml/min 01/12/22 08:57 BUN/Creatinine Ratio 13 % 01/12/22 08:57 Glucose 178 mg/dL (75-100) H 01/12/22 08:57 POC Glucose 130 mg/dL (70-105) H 01/13/22 06:31 Lactic Acid 4.00 mmol/L (0.7-2.0) H* 01/12/22 15:23 Calcium 8.6 mg/dL (8.4-10.2) 01/12/22 08:57 Phosphorus 1.70 mg/dL (2.5-4.5) L 01/11/22 19:41 Magnesium 4.80 mg/dL (1.7-2.3) H 01/11/22 19:41 Total Bilirubin 1.00 mg/dL (0.1-1.2) 01/12/22 08:57 AST 73 units/L (5-40) H 01/12/22 08:57 ALT 79 units/L (7-56) H 01/12/22 08:57 Alkaline Phosphatase 50 units/L (35-129) 01/12/22 08:57 Total Creatine Kinase 202 units/L (55-170) H 01/12/22 15:23 Troponin T 0.075 ng/mL (0.00-0.029) H D 01/11/22 04:20 C-Reactive Protein 13.20 mg/dL (0.00-1.30) H 01/12/22 05:10 Total Protein 6.2 g/dL (6.3-8.2) L 01/12/22 08:57 Albumin 3.3 g/dL (3.9-5) L 01/12/22 08:57 Albumin/Globulin Ratio 1.1 % 01/12/22 08:57 Triglycerides 94 mg/dL (2-149) 01/10/22 21:47 Cholesterol 113 mg/dL (50-199) 01/10/22 21:47 LDL Cholesterol Direct 72 mg/dL (50-130) 01/10/22 21:47 HDL Cholesterol 35 mg/dL (40-59) L 01/10/22 21:47 Cholesterol/HDL Ratio 3.22 % 01/10/22 21:47 Procalcitonin 42.50 ng/mL (<0.15) 01/12/22 05:10 Urine Color Yellow (Yellow) 01/12/22 16:51 Urine Turbidity Cloudy (Clear) 01/12/22 16:51 Urine pH 5.0 (5.0-7.0) 01/12/22 16:51 Ur Specific [place] 1.030 (1.003-1.030) 01/12/22 16:51 Urine Protein 30 mg/dl mg/dL (Negative) 01/12/22 16:51 Urine Glucose (UA) Negative mg/dL (Negative) 01/12/22 16:51 Urine Ketones Negative mg/dL (Negative) 01/12/22 16:51 Urine Blood Large (Negative) A 01/12/22 16:51 Urine Nitrite Negative (Negative) 01/12/22 16:51 Ur Reducing Substances Not Reportable 01/12/22 16:51 Urine Bilirubin Negative (Negative) 01/12/22 16:51 Urine Ictotest Not Reportable 01/12/22 16:51 Urine Urobilinogen 0.0 mg/dL (<2.0) 01/12/22 16:51 Ur Leukocyte Esterase Trace (Negative) 01/12/22 16:51 Urine WBC (Auto) 85.0 /HPF (0.0-6.0) H 01/12/22 16:51 Urine RBC (Auto) > 182.0 /HPF (0.0-6.0) 01/12/22 16:51 U Epithel Cells (Auto) 1.0 /HPF (0-13.0) 01/12/22 16:51 Urine WBC Clumps 1+ /HPF 01/12/22 16:51 Hyaline Casts 21 /LPF 01/12/22 16:51 Urine Mucus Few /HPF 01/12/22 16:51 Urine Yeast (Budding) Few /HPF 01/12/22 16:51 Urine Creatinine 224.3 mg/dL (0.1-20.0) H 01/12/22 16:51 Protein/Creatinin Ratio 0.47 01/12/22 16:51 Urine Total Protein 105 mg/dL (5-11.8) H 01/12/22 16:51 Coronavirus (PCR) Negative (Negative) 01/11/22 15:45 Blood Type B POSITIVE 01/10/22 21:47 Antibody Screen Negative 01/10/22 21:47 Microbiology: Microbiology 01/11/22 19:41 Peripheral/Venous Blood Culture - Preliminary NO GROWTH AFTER 24 HOURS 01/11/22 19:41 Peripheral/Venous Blood Culture - Preliminary NO GROWTH AFTER 24 HOURS Bustamante/IV: Voiding Method Indwelling Catheter Active Medications - Current Medications Current Medications: Generic Name Dose Route Start Last Admin Trade Name Freq PRN Reason Stop Dose Admin Acetaminophen 650 mg 01/10/22 23:49 Acetaminophen 325 Mg Tab PO Q6H PRN Pain MILD(1-3)/Fever >100.5/NÚÑEZ Albuterol 2.5 mg 01/11/22 00:19 Albuterol 2.5 Mg/3 Ml Nebu IH Q4HRT PRN Shortness Of Breath Atorvastatin Calcium 80 mg 01/11/22 22:00 01/12/22 22:20 Atorvastatin 40 Mg Tab FEEDTUBE 80 mg QHS SHAKEEL Administration Dextrose 50 ml 01/10/22 23:49 Dextrose 50% In Water (25gm) 50 Ml Syringe IV Q30MIN PRN Hypoglycemia Protocol Famotidine 10 mg 01/12/22 22:00 01/12/22 22:20 Famotidine 20 Mg/2 Ml Inj IV 10 mg BID SHAKEEL Administration Fentanyl 50 mcg 01/11/22 09:28 Fentanyl 100 Mcg/2 Ml Inj IV Q10MIN PRN ANALGESIA Hydrophilic Ointment 1 applic 01/12/22 09:02 Lip Therapy Vaseline TP Q2HR PRN Dry Lips Propofol 1,000 mg in 100 mls @ 3.538 mls/hr 01/11/22 10:00 01/12/22 17:23 Diprivan 10 Mg/Ml IV 5 mcg/kg/min TITR SHAKEEL 3.538 mls/hr Titration Protocol 5 MCG/KG/MIN Fentanyl Citrate 2,000 mcg in 100 mls @ 5.897 mls/hr 01/11/22 10:00 Fentanyl Drip Premix IV TITR SHAKEEL Protocol 1 MCG/KG/HR Ceftriaxone Sodium 2 gm in 100 mls @ 200 mls/hr 01/11/22 11:00 01/12/22 11:27 Rocephin/Ns 2 Gm/100 Ml IV Infused Q24H SHAKEEL Infusion Protocol Azithromycin 500 mg in 250 mls @ 250 mls/hr 01/11/22 12:00 01/12/22 12:02 Zithromax/Ns IV Infused Q24H SHAKEEL Infusion Protocol Vasopressin 20 unit/ Sodium 101 mls @ 9.09 mls/hr 01/11/22 14:00 01/12/22 16:04 Chloride IV 0 units/min TITR SHAKEEL 0 mls/hr Titration Protocol 0.03 UNITS/MIN NORepinephrine/NS 8 MG-250 ML 8 mg in 250 mls @ 3.75 mls/hr 01/11/22 14:00 01/12/22 17:22 Norepinephrine/Ns 8 Mg-250 Ml (Double Conc) IV 0 mcg/min TITRATE SHAKEEL 0 mls/hr Titration Protocol 2 MCG/MIN Dobutamine HCl/Dextrose 500 mg in 250 mls @ 17.69 mls/hr 01/11/22 14:00 0 01/12/22 10:57 Dobutrex Drip 500mg/D5w 250ml IV 0 mcg/kg/min DIRECT SHAKEEL 0 mls/hr Infusion Protocol 5 MCG/KG/MIN Amiodarone HCl 900 mg/ 500 mls @ 33.333 mls/hr 01/12/22 15:00 01/12/22 22:20 Dextrose IV 1 mg/min DIRECT SHAKEEL 33.333 mls/hr Administration Protocol 1 MG/MIN Insulin Human Lispro 0 unit 01/11/22 12:00 01/13/22 06:45 Insulin Lispro 100 Unit/Ml SUB-Q Not Given Q6HR SHAKEEL Protocol Magnesium Hydroxide 30 ml 01/10/22 23:49 Magnesium Hydroxide (Mom) Oral Liqd Udc PO Q4H PRN Constipation Multi-Ingred Cream/Lotion/Oil/Oint 1 applic 01/12/22 09:02 Mineral Oil/Petrolatum, White Ophth Oint 3.5 Gm OU Q4HR PRN Dry Eye(s) Ondansetron HCl 4 mg 01/10/22 23:49 Ondansetron 4 Mg/2 Ml Inj IV Q8H PRN Nausea And Vomiting Senna/Docusate Sodium 1 tab 01/12/22 10:00 01/12/22 22:20 Sennosides/Docusate Sodium 8.6/50 Mg Tab FEEDTUBE 1 tab BID SHAKEEL Administration Sodium Chloride 10 ml 01/11/22 10:00 01/12/22 22:56 Sodium Chloride 0.9% 10 Ml Flush Syringe IV 10 ml BID SHAKEEL Administration Sodium Chloride 10 ml 01/10/22 23:49 Sodium Chloride 0.9% 10 Ml Flush Syringe IV PRN PRN LINE FLUSH Nutrition/Malnutrition Assess - Dietary Evaluation Nutrition/Malnutrition Findings: Nutrition Notes Start: 01/11/22 12:57 Freq: Status: Active Protocol: Document 01/12/22 14:29 PB (Rec: 01/12/22 15:04 PB [id number]) Nutrition Notes Need for Assessment generated from: 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 .. Current Diet NPO (since 01/11 10:39), TF- Vital AF 1.2 Rey @ 60 ml/hr ( from D 01/12). Labs/Tests 01/12: CO2 21, BUN 42, Crea 3. 3, Glu 178. Pertinent Medications 01/12: Propofol @ 7.076 (187 Kcal), others nutritionally unremarkable. Height 5 ft 9 in Weight 117.934 kg [place] Body Weight (kg) 72.72 BMI 38.4 Intake Prior to Admission Good Weight change and time frame No body weight change reported in 1 day. Pt denies having loss body weight [employer] DIE CORRECT[employer]. Weight Status Obese Subjective/Other Information RD consult for skin risk assessment and write/manage TF . Pt currently on NPO. I will prescribe TF to provide Pt with energy/protein needs during LOS. Pt is on Mechanical Ventilation, O2 saturation @ 99%, according to Physical Assessment History notes. Pt shows no signs of concern for skin risk at the time, according to Physical Assessment History notes. Pt has been on Coumadin since 11/2020, according to Progress notes. Percent of energy/protein needs met: Pt currently on NPO. Prescribed TF-Vital AF 1.2 Rey @ 60 ml/hr provides for energy/protein needs (1,740 Kcal/109 g) during LOS, 87% Kcal; 100% AA. Including 187 Kcal from Propofol, 100% Kcal; 100% AA. Burn Absent Trauma Absent GI Symptoms None Food Allergy No Skin Integrity/Comment Assessment WNL. Current % PO Other Minimum of two criteria No Fluid Accumulation N/A Reduced Size Stamper Strength N/A (non-severe) Protein-Calorie Malnutrition N\A #1 Nutrition Diagnosis Inadequate oral intake Etiology Pt is on Mechanical Ventilation. As Evidenced by Signs and Symptoms Py is currently on NPO. Is patient on ventilator? Yes Is Patient Ambulatory and/or Out of Bed No REE-([facility]-confined to bed) [phone] Kcal/Kg value to use for calculation 17 Approximate Energy Requirements Using 2005 kcal/Kg Calculation Used for Recommendations Kcal/kg Additional Notes Protein: 0.8-1.2 g/Kg AdjBW; 77-115 g/day. Fluids: 1 ml/Kcal, or as per MD. Nutrition Intervention Nutrition Support: Start TF-Vital AF 1.2 Rey @ 60 ml/hr. Flush: 140 ml water Q 4 hr, or as per MD. Kcal 1,740 Protein (gm) 109 Carbohydrates (gm) 160 Fat (gm) 78 Fluid (mL) 1,176 Fiber (gm) 7 % RDI: 87% Kcal; 100% AA. Goal #1 Provide at least 75% of energy /protein needs through Enteral Feeding during LOS. Follow-Up By: 01/14/22 Additional Comments Start monitoring TF tolerance and BM.
[2022-01-12 12:24] LABS: Bilirubin,Urine Negative (Negative); Color,Urine Amber (Yellow)
[2022-01-12 12:25] LABS: Blood,Urine Large (Negative); Urobilinogen,Urine < 2.0 mg/dL (<2.0)
[2022-01-12 12:37] LABS: Hyaline Casts,Urine 14 /LPF; Mucus,Urine FEW /HPF
[2022-01-12 12:49] LABS: RBC,Urine > 182.0 /HPF (0.0-6.0)
--- NOTE | 2022-01-12 13:08 | Progress Note ---
Assessment and Plan This is a 56-year-old -La[place] male, who follows with Dr. KURTIS Ferrer, with past medical history of aortic regurgitation, non-obstructive CAD (via [facility] 2009) HFrEF, diabetes, hyperlipidemia, hypertension, s/p BI-V ICD ([facility]) Acute on chronic HFrEF Acute Pulmonary edema - copious pink, frothy sputum noted on intubation Acute Hypoxic Respiratory Failure-pulmonology following S/p ICD shock MARCIO-nephrology following Mildly elevated troponin- likely 2/2 to acutely decompensated HF/pulmonary edema/ICD shocks Hyperlipidemia Hypertension DM - mangement per primary team S/p Bi-V ICD ([facility]) H/o Stroke (OAC with Coumadin since 11/2020) H/o Prostate CA (2020) Home medications: Amlodipine 5 mg p.o. daily, atorvastatin 80 mg p.o. nightly, clonidine 0.1 mg transdermal patch q. 7 days, carvedilol 25 mg p.o. twice daily, hydralazine 50 mg p.o. 3 times daily, Imdur 30 mg p.o. every morning, Lasix 40 mg p.o. daily, metformin 500 mg p.o. twice daily, warfarin 5 mg tablet p.o. daily. Echocardiogram 03/2019: Mild to moderate concentric LV hypertrophy is observed. The LV size is moderate to severely dilated. RV global systolic function is mildly reduced. Mild aortic regurgitation. RV systolic pressure is calculated at 21 mmHg. Global LV systolic function is severely decreased. Estimated EF is 20 to 25%. Cath- 05/2010 at [facility]: Nonobstructive CAD Plan: Echocardiogram pending Per staff patient not having good urine output and patient having worsening renal function will defer volume management to nephrology No FABY or ARB due to renal function Continue statin however, no asa due to allergy. Patient requiring multiple pressors will hold beta-christopher. Wean pressors as tolerated Discontinued amiodarone drip. Was called by nurse in the afternoon that patient having ectopy. Will reinitiate Amiodorone gtt Continue coumadin if no medical contraindication. Device interrogation pending May ultimately benefit from inotrope therapy in the setting of acutely decompensated heart failure. VS stable at this point. Will hold off for now. Primary team may wish to consider COVID-19 testing Strict I & O and DW. Other management per primary teams. Patient seen in conjunction with Dr. Connolly who agrees with the assessment and management of this patient. - Patient Problems (1) MARCIO (acute kidney injury) Current Visit: No Status: Acute (2) Non-ischemic cardiomyopathy Current Visit: No Status: Chronic (3) Acute pulmonary edema Current Visit: No Status: Acute (4) CAD (coronary artery disease) Current Visit: No Status: Chronic (5) Acute respiratory failure with hypoxemia Current Visit: No Status: Acute (6) Acute on chronic HFrEF (heart failure with reduced ejection fraction) Current Visit: No Status: Acute (7) Ischemic cardiomyopathy Current Visit: No Status: Chronic (8) Automatic implantable cardioverter-defibrillator in situ Current Visit: No Status: Chronic (9) HTN (hypertension) Current Visit: No Status: Chronic (10) Obesity Current Visit: No Status: Chronic (11) History of CVA (cerebrovascular accident) Current Visit: No Status: Chronic (12) Implantable cardioverter-defibrillator (ICD) discharge Current Visit: Yes Status: Acute (13) Ventricular tachycardia (paroxysmal) Current Visit: Yes Status: Acute Subjective Date of service: 01/12/22 Principal diagnosis: Acute respiratory failure, acute on chronic HFrEF, MARCIO Interval history: Patient remains intubated and sedated Sinus 90s RBBB and PVCs Objective Vital Signs Temp Pulse Pulse Resp BP Pulse Ox 01/12/22 11:50 87 01/12/22 11:39 87 30 H 99 01/12/22 11:37 99 F 01/12/22 11:30 88 30 H 98/66 01/12/22 11:15 83 30 H 103/68 98 01/12/22 11:00 85 30 H 111/53 98 01/12/22 10:45 88 30 H 111/73 99 01/12/22 10:30 90 30 H 112/77 99 01/12/22 10:15 91 H 30 H 113/72 96 01/12/22 10:00 91 H 30 H 118/77 99 01/12/22 09:45 91 H 30 H 121/79 99 01/12/22 09:30 89 30 H 116/80 99 01/12/22 09:15 90 30 H 127/89 99 01/12/22 09:00 90 30 H 130/93 99 01/12/22 08:45 92 H 30 H 123/89 97 01/12/22 08:31 99.2 F 01/12/22 08:30 93 H 30 H 124/76 99 01/12/22 08:17 92 H 01/12/22 08:15 93 H 30 H 116/80 99 01/12/22 08:10 92 H 30 H 100 01/12/22 08:00 90 30 H 114/82 99 01/12/22 07:45 94 H 30 H 124/91 98 01/12/22 07:30 93 H 30 H 102/79 99 01/12/22 07:18 93 H 30 H 100 01/12/22 05:55 100 01/12/22 05:00 30 H 100 01/12/22 03:43 94 H 119/75 100 01/12/22 01:00 30 H 100 01/11/22 23:47 95 H 84/61 100 01/11/22 22:16 93 H 100/65 01/11/22 22:00 101 H 01/11/22 21:46 98 H 0 L 118/86 99 01/11/22 21:38 30 H 100 01/11/22 21:30 102 H 33 H 121/81 94 01/11/22 21:16 99 H 0 L 117/85 94 01/11/22 21:00 100 H 8 L 109/75 99 01/11/22 20:46 95 H 0 L 113/82 100 01/11/22 20:30 106 H 35 H 112/82 96 01/11/22 20:16 95 H 28 H 136/100 98 01/11/22 20:09 90 98/68 100 01/11/22 20:00 100 H 34 H 141/106 82 L 01/11/22 19:46 104 H 24 135/103 100 01/11/22 19:30 109 H 26 H 129/99 49 L 01/11/22 19:16 106 H 33 H 129/101 70 L 01/11/22 19:00 115 H 28 H 129/98 68 L 01/11/22 18:46 110 H 24 140/104 89 01/11/22 18:30 115 H 23 122/98 99 01/11/22 18:16 103 H 22 125/92 01/11/22 18:00 109 H 41 H 117/95 98 01/11/22 17:46 113 H 40 H 140/109 90 07/05/22 17:38 30 H 100 01/11/22 17:30 104 H 30 H 134/105 98 01/11/22 17:16 105 H 38 H 120/62 99 01/11/22 17:00 100 H 11 L 142/96 93 01/11/22 16:46 114 H 41 H 149/114 96 01/11/22 16:30 116 H 24 144/104 93 01/11/22 16:16 115 H 32 H 144/104 93 01/11/22 16:00 95 H 27 H 144/104 94 01/11/22 15:46 112 H 32 H 132/106 95 01/11/22 15:30 110 H 29 H 131/99 93 01/11/22 15:23 92 H 80/59 01/11/22 15:16 113 H 30 H 140/107 90 01/11/22 15:00 108 H 29 H 135/102 01/11/22 14:46 106 H 26 H 127/95 92 01/11/22 14:36 91 H 98/63 100 01/11/22 14:30 110 H 39 H 138/83 100 01/11/22 14:16 109 H 39 H 130/103 100 01/11/22 14:00 106 H 34 H 131/101 100 01/11/22 13:46 107 H 21 133/109 100 01/11/22 13:30 114 H 31 H 125/99 01/11/22 13:16 105 H 15 138/107 01/11/22 13:12 105 H 18 138/107 - Physical Examination General: Other (Intubated) Neck: Positive: trachea midline Cardiac: Positive: Reg Rate and Rhythm Lungs: Positive: Ventilated Respirations Neuro: Positive: Other (Somnolent. Will ) Abdomen: Positive: Active Bowel Sounds Skin: Negative: Rash Extremities: Present: +3 Edema (BLE), Cool - Labs and Meds Cardiac Enzymes 01/12/22 Range/Units 08:57 AST 73 H (5-40) units/L Coagulation 01/12/22 Range/Units 05:10 PT 36.1 H (12.2-14.9) Sec. INR 3.09 H (0.87-1.13) CBC 01/12/22 Range/Units 09:38 WBC 10.4 (4.5-11.0) K/mm3 RBC 5.03 (3.65-5.03) M/mm3 Hgb 13.9 (11.8-15.2) gm/dl Hct 43.3 (35.5-45.6) % Plt Count 208 (140-440) K/mm3 Comprehensive Metabolic Panel 01/11/22 01/12/22 Range/Units 19:41 08:57 Sodium 139 141 (137-145) mmol/L Potassium 4.4 D 4.5 (3.6-5.0) mmol/L Chloride 103.5 103.2 (98-107) mmol/L Carbon Dioxide 18 L 21 L (22-30) mmol/L BUN 34 H 42 H (9-20) mg/dL Creatinine 2.2 H D 3.3 H (0.8-1.3) mg/dL Glucose 153 H 178 H (75-100) mg/dL Calcium 8.7 8.6 (8.4-10.2) mg/dL AST 73 H (5-40) units/L ALT 79 H (7-56) units/L Alkaline Phosphatase 50 (35-129) units/L Total Protein 6.2 L (6.3-8.2) g/dL Albumin 3.3 L (3.9-5) g/dL - Imaging and Cardiology EKG: report reviewed, image reviewed Echo: pending - Telemetry EKG Rhythm: Sinus Rhythm - EKG Sinus rhythms and dysrhythmias: sinus rhythm (RBBB)
[2022-01-12] MEDS ORDERED: AMIODARONE 75 MG in DEXTROSE 5% IN WATER 97 ML IV SCH (14:45)
--- NOTE | 2022-01-12 16:31 | Consultation ---
History of Present Illness - Reason for Consult Consult date: 01/12/22 acute renal failure - History of Present Illness This is a 56-year-old man with history of coronary artery disease, hypertension and hyperlipidemia who presented on 01/10 with chest pain. He was intubated due to respiratory distress and nephrology was consulted for acute kidney injury. History has been obtained from chart as patient is sedated and intubated. Past History Past Medical History: acute RI, diabetes, hypertension, hyperlipidemia Past Surgical History: Other (AICD) Social history: no significant social history Family history: no significant family history Medications and Allergies Allergies Allergy/AdvReac Type Severity Reaction Status Date / Time aspirin AdvReac Unknown Verified 01/10/22 21:41 Home Medications Medication Instructions Recorded Confirmed Last Taken Type Isosorbide Mononitrate [Isosorbide 30 mg PO DAILY #30 tab.er.24h 08/20/13 03/28/19 01/15/17 08:00 Rx Mononitrate ER] carvediloL [Coreg] 25 mg PO BID #60 tablet 08/20/13 03/28/19 09/22/18 Rx Furosemide [Lasix] 40 mg PO DAILY #30 tablet 09/17/13 03/28/19 01/15/17 08:00 Rx AtorvaSTATin [Lipitor] 80 mg PO QHS #30 tablet 01/19/17 03/28/19 Unknown Rx amLODIPine 10 mg PO DAILY 09/23/18 03/28/19 09/22/18 History cloNIDine-TTS PATCH [Catapres-Tts 1 patch TD Q7D 09/23/18 03/28/19 09/21/18 History 0.1MG Patch] hydrALAZINE [Apresoline TAB] 50 mg PO TID 09/23/18 03/28/19 09/22/18 History metFORMIN [Glucophage] 500 mg PO BID 09/23/18 03/28/19 Unknown History Potassium Chloride [K-Dur] 10 meq PO QDAY 03/28/19 03/28/19 Unknown History Warfarin [Coumadin] 2.5 mg PO QDAY 03/28/19 03/28/19 Unknown History ISOSORBIDE MONOnitrate [Imdur ER] 30 mg PO QDAY #30 tablet 03/29/19 Unknown Rx Warfarin [Coumadin] 7.5 mg PO DAILY@1700 tablet 03/30/19 Unknown Rx Active Meds: Active Medications Acetaminophen (Acetaminophen 325 Mg Tab) 650 mg PO Q6H PRN PRN Reason: Pain MILD(1-3)/Fever >100.5/NÚÑEZ Albuterol (Albuterol 2.5 Mg/3 Ml Nebu) 2.5 mg IH Q4HRT PRN PRN Reason: Shortness Of Breath Atorvastatin Calcium (Atorvastatin 40 Mg Tab) 80 mg FEEDTUBE QHS SHAKEEL Last Admin: 01/11/22 22:16 Dose: 80 mg Dextrose (Dextrose 50% In Water (25gm) 50 Ml Syringe) 50 ml IV Q30MIN PRN; Protocol PRN Reason: Hypoglycemia Famotidine (Famotidine 20 Mg/2 Ml Inj) 10 mg IV BID SHAKEEL Fentanyl (Fentanyl 100 Mcg/2 Ml Inj) 50 mcg IV Q10MIN PRN PRN Reason: ANALGESIA Hydrophilic Ointment (Lip Therapy Vaseline) 1 applic TP Q2HR PRN PRN Reason: Dry Lips Propofol (Diprivan 10 Mg/Ml) 1,000 mg in 100 mls @ 3.538 mls/hr IV TITR SHAKEEL; Protocol Last Admin: 01/12/22 15:26 Dose: 10 mcg/kg/min, 7.076 mls/hr Fentanyl Citrate (Fentanyl Drip Premix) 2,000 mcg in 100 mls @ 5.897 mls/hr IV TITR SHAKEEL; Protocol Ceftriaxone Sodium (Rocephin/Ns 2 Gm/100 Ml) 2 gm in 100 mls @ 200 mls/hr IV Q24H SHAKEEL; Protocol Last Infusion: 01/12/22 11:27 Dose: Infused Azithromycin (Zithromax/Ns) 500 mg in 250 mls @ 250 mls/hr IV Q24H SHAKEEL; Protocol Last Infusion: 01/12/22 12:02 Dose: Infused Vasopressin 20 unit/ Sodium (Chloride) 101 mls @ 9.09 mls/hr IV TITR SHAKEEL; Protocol Last Titration: 01/12/22 16:04 Dose: 0 units/min, 0 mls/hr NORepinephrine/NS 8 MG-250 ML (Norepinephrine/Ns 8 Mg-250 Ml (Double Conc)) 8 mg in 250 mls @ 3.75 mls/hr IV TITRATE SHAKEEL; Protocol Last Titration: 01/12/22 15:37 Dose: 4 mcg/min, 7.5 mls/hr Dobutamine HCl/Dextrose (Dobutrex Drip 500mg/D5w 250ml) 500 mg in 250 mls @ 17.69 mls/hr IV DIRECT SHAKEEL; Protocol Last Infusion: 01/12/22 10:57 Dose: 0 mcg/kg/min, 0 mls/hr Amiodarone HCl 75 mg/ Dextrose 98.5 mls @ 600 mls/hr IV ONCE@1445 SHAKEEL Stop: 01/12/22 16:45 Last Infusion: 01/12/22 15:24 Dose: Infused Amiodarone HCl 900 mg/ (Dextrose) 500 mls @ 33.333 mls/hr IV DIRECT SHAKEEL; Protocol Last Admin: 01/12/22 15:29 Dose: 1 mg/min, 33.333 mls/hr Insulin Human Lispro (Insulin Lispro 100 Unit/Ml) 0 unit SUB-Q Q6HR SHAKEEL; Protocol Last Admin: 01/12/22 11:03 Dose: 2 unit Magnesium Hydroxide (Magnesium Hydroxide (Mom) Oral Liqd Udc) 30 ml PO Q4H PRN PRN Reason: Constipation Multi-Ingred Cream/Lotion/Oil/Oint (Mineral Oil/Petrolatum, White Ophth Oint 3.5 Gm) 1 applic OU Q4HR PRN PRN Reason: Dry Eye(s) Ondansetron HCl (Ondansetron 4 Mg/2 Ml Inj) 4 mg IV Q8H PRN PRN Reason: Nausea And Vomiting Senna/Docusate Sodium (Sennosides/Docusate Sodium 8.6/50 Mg Tab) 1 tab FEEDTUBE BID [facility] Last Admin: 01/12/22 11:02 Dose: 1 tab Sodium Chloride (Sodium Chloride 0.9% 10 Ml Flush Syringe) 10 ml IV BID [facility] Last Admin: 01/12/22 08:59 Dose: 10 ml Sodium Chloride (Sodium Chloride 0.9% 10 Ml Flush Syringe) 10 ml IV PRN PRN PRN Reason: LINE FLUSH Review of Systems ROS unobtainable: due to endotracheal tube Exam - Vital Signs Vital signs: Vital Signs Pulse Resp Pulse Ox 140 H 24 96 01/10/22 21:34 01/10/22 21:34 01/10/22 21:34 - Physical Exam Narrative exam: General: Sedated. Intubated. HEENT: Oral mucosa moist Neck: Supple, no JVD Chest: Intubated. Mechanical breath sounds. Heart: RRR, S1 and S2, no pericardial rub Abdomen: Soft, nontender, no renal bruit Extremity: No peripheral cyanosis, edema Neurological: Alert, awake, no asterixis Dermatology: No skin rash Psych: No agitation Musculoskeletal: No joint effusion Results - Lab Results 01/12/22 09:38 01/12/22 08:57 Most recent lab results ABG pH 7.418 pH Units (7.350-7.450) 01/12/22 05:20 ABG pCO2 35.4 mm Hg 01/12/22 05:20 ABG pO2 194.1 mm Hg (80.0-90.0) H 01/12/22 05:20 ABG HCO3 22.3 mmol/L (20.0-26.0) 01/12/22 05:20 ABG O2 Saturation 99.2 % (95.0-99.0) H 01/12/22 05:20 Calcium 8.6 mg/dL (8.4-10.2) 01/12/22 08:57 Phosphorus 1.70 mg/dL (2.5-4.5) L 01/11/22 19:41 Magnesium 4.80 mg/dL (1.7-2.3) H 01/11/22 19:41 Assessment and Plan Acute kidney injury, cr 2.2-->3.3 Acute hypoxic respiratory failure, status post intubation Shock Ventricular tachycardia Coronary artery disease Congestive heart failure with reduced ejection fraction Elevated LFTs Check urinalysis Check UPCR Check renal ultrasound Keep MAP more than 65 No immediate indication for dialysis Start Thiamine supplementation Renally dose medications Avoid nephrotoxins Renal diet Thank you for involving us in the care of this patient. Total critical care time spent 32 minutes. Please call with questions.
--- NOTE | 2022-01-12 16:58 | Progress Note ---
Assessment and Plan Acute Hypoxic Respiratory Failure on MVS Fulminant Pulmonary Edema/ Possible CAP Ventricular Tachycardia - Implantable Cardioverter-Defibrillator (ICD) discharge CAD (Coronary Artery Disease) Congestive Heart Failure with Reduce EF h/o HTN (Hypertension) Acute Kidney Injury(MARCIO) Hypokalemia-improved Possible CAP Type 2 Diabetes Mellitus -wean vasopressor support for MAP>65 -Titrate supplemental oxygen oxygen for SpO2 89-92% Continue to titrate FIO2 down, once he is at an FIO2 50%, can start weaning down PEEP -Lung protective strategies,ARDS net protocol -CXR, ABG daily -Propofol titrate to patient-ventilator synchrony -Continue to monitor renal function, hemodynamics and electrolyte profile -Avoid nephrotoxins, adjust all medications for GFR and CrCL -Bustamante catheter in this critically ill patient requiring strict intake and output monitoring. Daily assessment for ongoing need for Bustamante catheter-continues to require a Bustamante catheter -Replete electrolytes as clinically indicated -Empiric antibiotics for CAP ( Azithromycin and Ceftriaxone) - deescalate based on culture data and clinical response -Blood cultures, tracheal aspirate for cultures -Accuchecks with glycemic control, target blood glucose 140-180 mg/dL. Avoid hypoglycemia -VTE prophylaxis- coagulopathic, no pharmacologic prophylaxis at this time. Per and father- he was on Coumadin for a stroke -Stress ulcer prophylaxis-Famotidine -Mobility, frequent turning, off loading per facility protocol to prevent pressure ulcers -Maintain sleep wake cycle, avoid benzodiazepines. -Limit delirium -Enteric nutritional support -initiate tube feeding -Supportive blood transfusion, keep HgB>7g/dL -replace electrolytes and address as clinically indicated CONDITION:CRITICAL PROGNOSIS: GUARDED CODE STATUS; FULL CODE Discussed in interdisciplinary rounds The high probability of a clinically significant, sudden or life threatening deterioration of the respiratory, cardiovascular, renal and renal systems re quired my full and direct attention, intervention and personal management. The aggregate critical care time was [35] minutes. This time is in addition to time spent performing reported procedures but includes the following: [x] Data Review and interpretation [x] Patient assessment and monitoring of vital signs [x] Documentation [x] Medication orders and management Subjective Date of service: 01/12/22 Principal diagnosis: Acute respiratory failure, acute on chronic HFrEF, MARCIO Interval history: This is a 56-year-old AA male with known past medical history of [place], aortic regurgitation, non-obstructive CAD, HFrEF, s/p AICD, diabetes, hyperlipidemia, and hypertension admitted for AICD discharge. Decompensated in the ED s/p emergent intubation now on ventilatory support, in fulminant pulmonary edema Seen and examined. Vitals, labs,medications, chart and imaging reviewed. Discussed with respiratory and nursing care staff. No adverse overnight events reported. Vent:+12/ 100%. On Propofol and pressors for hypotension. Accelerated junctional rhythm noted on the monitor this am, Dobutamine gtt held. 2D Echo pending. Worsening renal function; oliguric, only 200cc in last 24hrs. Lines: Right Femoral CVL, Bustamante catheter; right femoral arterial line Objective Vital Signs - 12hr 01/12/22 01/12/22 01/12/22 05:00 05:55 07:18 Temperature Pulse Rate 93 H Pulse Rate [ From Monitor] Respiratory 30 H 30 H Rate Blood Pressure O2 Sat by Pulse 100 100 100 Oximetry 01/12/22 01/12/22 01/12/22 07:30 07:45 08:00 Temperature Pulse Rate 93 H 94 H 90 Pulse Rate [ From Monitor] Respiratory 30 H 30 H 30 H Rate Blood Pressure 102/79 124/91 114/82 O2 Sat by Pulse 99 98 99 Oximetry 01/12/22 01/12/22 01/12/22 08:10 08:15 08:17 Temperature Pulse Rate 93 H 92 H Pulse Rate [ 92 H From Monitor] Respiratory 30 H 30 H Rate Blood Pressure 116/80 O2 Sat by Pulse 100 99 Oximetry 01/12/22 01/12/22 01/12/22 08:30 08:31 08:45 Temperature 99.2 F Pulse Rate 93 H 92 H Pulse Rate [ From Monitor] Respiratory 30 H 30 H Rate Blood Pressure 124/76 123/89 O2 Sat by Pulse 99 97 Oximetry 01/12/22 01/12/22 01/12/22 09:00 09:15 09:30 Temperature Pulse Rate 90 90 89 Pulse Rate [ From Monitor] Respiratory 30 H 30 H 30 H Rate Blood Pressure 130/93 127/89 116/80 O2 Sat by Pulse 99 99 99 Oximetry 01/12/22 01/12/22 01/12/22 09:45 10:00 10:15 Temperature Pulse Rate 91 H 91 H 91 H Pulse Rate [ From Monitor] Respiratory 30 H 30 H 30 H Rate Blood Pressure 121/79 118/77 113/72 O2 Sat by Pulse 99 99 96 Oximetry 01/12/22 01/12/22 01/12/22 10:30 10:45 11:00 Temperature Pulse Rate 90 88 85 Pulse Rate [ From Monitor] Respiratory 30 H 30 H 30 H Rate Blood Pressure 112/77 111/73 111/53 O2 Sat by Pulse 99 99 98 Oximetry 01/12/22 01/12/22 01/12/22 11:15 11:30 11:37 Temperature 99 F Pulse Rate 83 88 Pulse Rate [ From Monitor] Respiratory 30 H 30 H Rate Blood Pressure 103/68 98/66 O2 Sat by Pulse 98 Oximetry 01/12/22 01/12/22 01/12/22 11:39 11:45 11:50 Temperature Pulse Rate 84 87 Pulse Rate [ 87 From Monitor] Respiratory 30 H 30 H Rate Blood Pressure 98/66 O2 Sat by Pulse 99 99 Oximetry 01/12/22 01/12/22 01/12/22 12:00 12:14 12:15 Temperature Pulse Rate 84 87 82 Pulse Rate [ From Monitor] Respiratory 30 H 21 Rate Blood Pressure 92/63 101/65 92/63 O2 Sat by Pulse 98 97 100 Oximetry 01/12/22 01/12/22 01/12/22 12:31 12:45 13:00 Temperature Pulse Rate 81 79 77 Pulse Rate [ From Monitor] Respiratory 27 H 30 H 27 H Rate Blood Pressure 92/63 98/59 101/65 O2 Sat by Pulse 96 99 96 Oximetry 01/12/22 01/12/22 01/12/22 13:15 13:30 13:45 Temperature Pulse Rate 76 84 76 Pulse Rate [ From Monitor] Respiratory 48 H 47 H 47 H Rate Blood Pressure 101/65 110/58 134/63 O2 Sat by Pulse 98 99 Oximetry 01/12/22 01/12/22 01/12/22 14:00 14:15 14:31 Temperature Pulse Rate 80 81 84 Pulse Rate [ From Monitor] Respiratory 45 H 44 H 45 H Rate Blood Pressure 112/90 112/90 141/89 O2 Sat by Pulse 98 99 97 Oximetry 01/12/22 01/12/22 01/12/22 14:45 15:00 15:15 Temperature Pulse Rate 79 78 79 Pulse Rate [ From Monitor] Respiratory 38 H 26 H 36 H Rate Blood Pressure 120/75 129/100 129/100 O2 Sat by Pulse 98 Oximetry 01/12/22 01/12/22 01/12/22 15:30 15:45 15:59 Temperature Pulse Rate 82 81 81 Pulse Rate [ From Monitor] Respiratory 49 H 35 H Rate Blood Pressure 123/82 124/78 O2 Sat by Pulse 97 98 Oximetry 01/12/22 01/12/22 16:00 16:01 Temperature Pulse Rate 79 Pulse Rate [ 81 From Monitor] Respiratory 30 H 43 H Rate Blood Pressure 113/80 O2 Sat by Pulse 98 97 Oximetry Constitutional: other (sedated, ETT to MVS, no patient-ventilator dys-synchrony) Eyes: non-icteric ENT: oropharynx moist Neck: supple, no lymphadenopathy Effort: mildly labored Ascultation: Bilateral: diminished breath sounds, rhonchi Cardiovascular: irregular rhythm, other (S1,S2) Gastrointestinal: normoactive bowel sounds, soft, non-tender, non-distended Integumentary: other (right femoral CVL, and arterial line) Extremities: edema Neurologic: non-focal exam, other (moves all extremities) Psychiatric: other (Unable to assess Psych, patient is sedated) CBC and BMP: 01/16/22 05:10 01/16/22 05:10 ABG, PT/INR, D-dimer: ABG ABG pH 7.418 pH Units (7.350-7.450) 01/12/22 05:20 ABG pCO2 35.4 mm Hg 01/12/22 05:20 ABG pO2 194.1 mm Hg (80.0-90.0) H 01/12/22 05:20 ABG O2 Saturation 99.2 % (95.0-99.0) H 01/12/22 05:20 PT/INR, D-dimer PT 36.1 Sec. (12.2-14.9) H 01/12/22 05:10 INR 3.09 (0.87-1.13) H 01/12/22 05:10 Abnormal lab findings: Abnormal Labs 01/10/22 01/10/22 01/10/22 21:47 21:47 21:47 RDW 19.5 H Lymph % (Auto) 6.0 L Lymph # (Auto) 0.3 L Seg Neutrophils % 85.9 H PT 27.8 H INR 2.25 H APTT 38.8 H ABG pH ABG pO2 ABG HCO3 ABG O2 Saturation ABG Base Excess ABG Hemoglobin Oxyhemoglobin Sodium 147 H Potassium 3.4 L Chloride 109.0 H Carbon Dioxide BUN 24 H Creatinine Glucose 149 H POC Glucose Lactic Acid Phosphorus Magnesium Total Bilirubin 1.30 H AST ALT Total Creatine Kinase Troponin T 0.063 H C-Reactive Protein Total Protein Albumin HDL Cholesterol 35 L Urine Blood Urine WBC (Auto) 01/10/22 01/11/22 01/11/22 21:47 00:12 00:15 RDW Lymph % (Auto) Lymph # (Auto) Seg Neutrophils % PT INR APTT ABG pH ABG pO2 ABG HCO3 ABG O2 Saturation ABG Base Excess ABG Hemoglobin Oxyhemoglobin Sodium Potassium Chloride Carbon Dioxide BUN Creatinine Glucose POC Glucose 130 H Lactic Acid Phosphorus Magnesium 1.50 L Total Bilirubin AST ALT Total Creatine Kinase Troponin T 0.058 H C-Reactive Protein Total Protein Albumin HDL Cholesterol Urine Blood Urine WBC (Auto) 01/11/22 01/11/22 01/11/22 04:20 04:20 09:09 RDW Lymph % (Auto) Lymph # (Auto) Seg Neutrophils % PT INR APTT ABG pH ABG pO2 ABG HCO3 ABG O2 Saturation ABG Base Excess ABG Hemoglobin Oxyhemoglobin Sodium Potassium Chloride Carbon Dioxide 21 L BUN 23 H Creatinine 1.4 H Glucose 157 H POC Glucose Lactic Acid Phosphorus Magnesium Total Bilirubin AST ALT Total Creatine Kinase Troponin T 0.075 H D C-Reactive Protein Total Protein Albumin HDL Cholesterol Urine Blood Large A Urine WBC (Auto) 22.0 H 01/11/22 01/11/22 01/11/22 09:19 09:55 14:15 RDW Lymph % (Auto) Lymph # (Auto) Seg Neutrophils % PT INR APTT ABG pH 7.265 L ABG pO2 40.4 L ABG HCO3 ABG O2 Saturation 64.5 L ABG Base Excess -5.9 L -3.5 L ABG Hemoglobin Oxyhemoglobin 63.1 L 94.9 L Sodium Potassium Chloride Carbon Dioxide BUN Creatinine Glucose POC Glucose 236 H Lactic Acid Phosphorus Magnesium Total Bilirubin AST ALT Total Creatine Kinase Troponin T C-Reactive Protein Total Protein Albumin HDL Cholesterol Urine Blood Urine WBC (Auto) 01/11/22 01/11/22 01/11/22 17:09 19:41 19:41 RDW Lymph % (Auto) Lymph # (Auto) Seg Neutrophils % PT INR APTT ABG pH ABG pO2 ABG HCO3 ABG O2 Saturation ABG Base Excess ABG Hemoglobin Oxyhemoglobin Sodium Potassium Chloride Carbon Dioxide 18 L BUN 34 H Creatinine 2.2 H D Glucose 153 H POC Glucose 137 H Lactic Acid 3.30 H* Phosphorus Magnesium Total Bilirubin AST ALT Total Creatine Kinase Troponin T C-Reactive Protein Total Protein Albumin HDL Cholesterol Urine Blood Urine WBC (Auto) 01/11/22 01/11/22 01/12/22 19:41 20:26 00:24 RDW Lymph % (Auto) Lymph # (Auto) Seg Neutrophils % PT INR APTT ABG pH ABG pO2 218.2 H ABG HCO3 18.5 L ABG O2 Saturation 99.3 H ABG Base Excess -5.0 L ABG Hemoglobin Oxyhemoglobin Sodium Potassium Chloride Carbon Dioxide BUN Creatinine Glucose POC Glucose 155 H Lactic Acid Phosphorus 1.70 L Magnesium 4.80 H Total Bilirubin AST ALT Total Creatine Kinase Troponin T C-Reactive Protein Total Protein Albumin HDL Cholesterol Urine Blood Urine WBC (Auto) 01/12/22 01/12/22 01/12/22 05:10 05:10 05:10 RDW Lymph % (Auto) Lymph # (Auto) Seg Neutrophils % PT 36.1 H INR 3.09 H APTT ABG pH ABG pO2 ABG HCO3 ABG O2 Saturation ABG Base Excess ABG Hemoglobin Oxyhemoglobin Sodium Potassium Chloride Carbon Dioxide BUN Creatinine Glucose POC Glucose Lactic Acid 3.80 H* Phosphorus Magnesium Total Bilirubin AST ALT Total Creatine Kinase Troponin T C-Reactive Protein 13.20 H Total Protein Albumin HDL Cholesterol Urine Blood Urine WBC (Auto) 01/12/22 01/12/22 01/12/22 05:20 08:57 09:30 RDW Lymph % (Auto) Lymph # (Auto) Seg Neutrophils % PT INR APTT ABG pH ABG pO2 194.1 H ABG HCO3 ABG O2 Saturation 99.2 H ABG Base Excess ABG Hemoglobin 12.7 L Oxyhemoglobin Sodium Potassium Chloride Carbon Dioxide 21 L BUN 42 H Creatinine 3.3 H Glucose 178 H POC Glucose Lactic Acid 3.60 H* Phosphorus Magnesium Total Bilirubin AST 73 H ALT 79 H Total Creatine Kinase Troponin T C-Reactive Protein Total Protein 6.2 L Albumin 3.3 L HDL Cholesterol Urine Blood Urine WBC (Auto) 07/06/22 07/06/22 07/06/22 09:38 15:23 16:50 RDW 20.0 H Lymph % (Auto) Lymph # (Auto) Seg Neutrophils % PT INR APTT ABG pH ABG pO2 ABG HCO3 ABG O2 Saturation ABG Base Excess ABG Hemoglobin Oxyhemoglobin Sodium Potassium Chloride Carbon Dioxide BUN Creatinine Glucose POC Glucose 207 H Lactic Acid Phosphorus Magnesium Total Bilirubin AST ALT Total Creatine Kinase 202 H Troponin T C-Reactive Protein Total Protein Albumin HDL Cholesterol Urine Blood Urine WBC (Auto) Chest x-ray: image reviewed Allied health notes reviewed: RT
--- NOTE | 2022-01-12 17:42 | Electrocardiograph Report ---
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
--- NOTE | 2022-01-12 17:43 | Electrocardiograph Report ---
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
--- NOTE | 2022-01-12 17:57 | Electrocardiograph Report ---
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
--- NOTE | 2022-01-12 18:41 | Ultrasound Report ---
ULTRASOUND RENAL INDICATION / CLINICAL INFORMATION: MARCIO. COMPARISON: None available. FINDINGS: RIGHT KIDNEY: Length = 11.5 cm. - Echogenicity: Normal. - Cortical Thickness: Normal. - Hydronephrosis: None. - Cyst or mass: No significant abnormality. - Stones: None seen. LEFT KIDNEY: Length = 11.7 cm. - Echogenicity: Normal. - Cortical Thickness: Normal. - Hydronephrosis: None. - Cyst or mass: Several small cystic areas in the upper pole measuring 1.4 cm in lower pole 0.8 cm. A few mild cortical irregularity seen - Stones: None seen. URINARY BLADDER: No significant abnormality. FREE FLUID: None. ADDITIONAL FINDINGS: None. IMPRESSION: 1. Several small left renal cyst. Few cortical irregularities in left kidney could represent chronic kidney changes however nonspecific. Follow-up ultrasound or CT if indicated. No hydronephrosis. Signer Name: Francisco Bravo MD Signed: 01/12/2022 6:37 PM Workstation Name: [id number]
[2022-01-12 20:00] LABS: Creatinine,Urine 224.3 mg/dL (0.1-20.0); Protein/Creatinine Ratio,Urine 0.47
[2022-01-12 20:37] LABS: Hyaline Casts,Urine 21 /LPF; Mucus,Urine FEW /HPF
[2022-01-12 20:51] LABS: Color,Urine Yellow (Yellow)
[2022-01-12 20:51] LABS: Creatinine,Urine 220.1 mg/dL (0.1-20.0); Protein/Creatinine Ratio,Urine 0.48
[2022-01-12 20:52] LABS: Bilirubin,Urine Negative (Negative); Blood,Urine Large (Negative)
[2022-01-12 20:54] LABS: RBC,Urine > 182.0 /HPF (0.0-6.0)
[2022-01-12] MEDS ORDERED: FAMOTIDINE 20 MG/2 ML INJ IV SCH (22:00)
[2022-01-13] MEDS: INSULIN LISPRO 100 UNIT/ML SUB-Q SCH ×4 (01:36→18:28)
[2022-01-13 03:34] LABS: ABG Base Excess -7.1 mmol/L (-2.0-3.0); ABG Methemoglobin 0.6 % (0.0-1.5); ABG Oxygen Saturation 99.3 % (95.0-99.0); ABG PCO2 30.7 mm Hg; ABG PH 7.362 pH Units (7.350-7.450); ABG PO2 226.5 mm Hg (80.0-90.0)
[2022-01-13 04:41] LABS: INR 4.25 (0.87-1.13)
--- NOTE | 2022-01-13 05:27 | XRay Report ---
XR chest 1V ap INDICATION / CLINICAL INFORMATION: follow up respiratory failure. COMPARISON: Radiograph from yesterday. FINDINGS: SUPPORT DEVICES: Unchanged. HEART /PULMONARY VASCULATURE: Stable cardiomegaly. LUNGS / PLEURA: Mild bilateral edema appears unchanged. No sizable pleural effusion. No pneumothorax. IMPRESSION: 1. No significant interval change. Signer Name: Capo Baker MD Signed: 01/13/2022 5:23 AM Workstation Name: [id number]
[2022-01-13 08:40] LABS: Basophils % (Auto) 0.2 % (0.0-1.8); Eosinophils % (Auto) 0.1 % (0.0-4.3); Hemoglobin 12.9 gm/dl (11.8-15.2); Lymphocytes # (Auto) 0.6 K/mm3 (1.2-5.4); Mean Corpuscular HGB Conc 32 % (32-34); Mean Corpuscular Volume 86 fl (84-94); Monocytes # (Auto) 0.8 K/mm3 (0.0-0.8); Monocytes % (Auto) 6.5 % (0.0-7.3); Platelet Count 162 K/mm3 (140-440); Red Blood Count 4.68 M/mm3 (3.65-5.03)
[2022-01-13 08:48] LABS: Red Cell Distribution Width 20.1 % (13.2-15.2)
--- NOTE | 2022-01-13 08:59 | Progress Note ---
Assessment and Plan Acute Hypoxic Respiratory Failure on MVS Fulminant Pulmonary Edema/ Possible CAP Ventricular Tachycardia - Implantable Cardioverter-Defibrillator (ICD) discharge CAD (Coronary Artery Disease) Congestive Heart Failure with Reduce EF h/o HTN (Hypertension) Acute Kidney Injury(MARCIO) Hypokalemia-improved Possible CAP Type 2 Diabetes Mellitus Start SAT/SBT in the morning Patient is in ATN, and does not appear to have any indication for immediate HD. Continue to monitor closely -Titrate supplemental oxygen oxygen for SpO2 89-92% -Lung protective strategies,ARDS net protocol -CXR, ABG as clinically indicated -Propofol titrate to patient-ventilator synchrony -Continue to monitor renal function, hemodynamics and electrolyte profile -Avoid nephrotoxins, adjust all medications for GFR and CrCL -Bustamante catheter in this critically ill patient requiring strict intake and output monitoring. Daily assessment for ongoing need for Bustamante catheter-continues to require a Bustamante catheter -Replete electrolytes as clinically indicated -Empiric antibiotics for CAP ( Azithromycin and Ceftriaxone) - complete 5 day course -Accuchecks with glycemic control, target blood glucose 140-180 mg/dL. Avoid hypoglycemia -VTE prophylaxis- coagulopathic, no pharmacologic prophylaxis at this time. -Stress ulcer prophylaxis-Famotidine -Mobility, frequent turning, off loading per facility protocol to prevent pressure ulcers -Maintain sleep wake cycle, avoid benzodiazepines. -Limit delirium -Enteric nutritional support- titrate to goal. -Supportive blood transfusion, keep HgB>7g/dL -replace electrolytes and address as clinically indicated CONDITION:CRITICAL PROGNOSIS: GUARDED CODE STATUS; FULL CODE Discussed in interdisciplinary rounds The high probability of a clinically significant, sudden or life threatening deterioration of the respiratory, cardiovascular, renal and renal systems required my full and direct attention, intervention and personal management. The aggregate critical care time was [35] minutes. This time is in addition to time spent performing reported procedures but includes the following: [x] Data Review and interpretation [x] Patient assessment and monitoring of vital signs [x] Documentation [x] Medication orders and management Subjective Date of service: 01/13/22 Principal diagnosis: Acute respiratory failure, acute on chronic HFrEF, MARCIO Interval history: This is a 56-year-old AA male with known past medical history of VT, aortic regurgitation, non-obstructive CAD, HFrEF, s/p AICD, diabetes, hyperlipidemia, and hypertension admitted for AICD discharge. Decompensated in the ED s/p emergent intubation now on ventilatory support, in fulminant pulmonary edema Seen and examined. Vitals, labs,medications, chart and imaging reviewed. Discussed with respiratory and nursing care staff. No adverse overnight events reported. Vent:+8/ 50%. On Propofol , off vasopressors, acceptable blood pressure Amiodarone infusion. Tube feeding initiated Worsening renal function; Lines: Right Femoral CVL, Bustamante catheter Objective - Exam Narrative Exam: Constitutional: other (sedated, ETT to MVS, no patient-ventilator dys-synchrony) Eyes: non-icteric ENT: oropharynx moist Neck: supple, no lymphadenopathy Effort: mildly labored Ascultation: Bilateral: diminished breath sounds, rhonchi Cardiovascular: irregular rhythm, other (S1,S2) Gastrointestinal: normoactive bowel sounds, soft, non-tender, non-distended Integumentary: other (right femoral CVL, and arterial line) Extremities: edema Neurologic: non-focal exam, other (moves all extremities) Psychiatric: Calm Vital Signs - 12hr 01/12/22 01/12/22 01/12/22 21:00 21:15 21:30 Temperature Pulse Rate 72 73 73 Pulse Rate [ From Monitor] Respiratory 15 14 14 Rate Blood Pressure 105/70 110/72 105/73 O2 Sat by Pulse 98 98 96 Oximetry 01/12/22 01/12/22 01/12/22 21:45 22:00 22:15 Temperature Pulse Rate 70 74 75 Pulse Rate [ From Monitor] Respiratory 15 13 8 L Rate Blood Pressure 108/71 92/66 93/66 O2 Sat by Pulse 98 98 98 Oximetry 01/12/22 01/12/22 01/12/22 22:31 22:46 23:01 Temperature Pulse Rate 75 74 73 Pulse Rate [ From Monitor] Respiratory 9 L 14 14 Rate Blood Pressure 96/75 96/75 95/67 O2 Sat by Pulse 97 99 97 Oximetry 01/12/22 01/12/22 01/12/22 23:15 23:30 23:36 Temperature Pulse Rate 75 76 74 Pulse Rate [ From Monitor] Respiratory 7 L 27 H Rate Blood Pressure 100/65 106/73 106/73 O2 Sat by Pulse 98 98 99 Oximetry 01/12/22 01/13/22 01/13/22 23:45 00:00 00:15 Temperature 99.1 F Pulse Rate 73 75 77 Pulse Rate [ 81 From Monitor] Respiratory 26 H 16 31 H Rate Blood Pressure 105/81 111/75 118/75 O2 Sat by Pulse 98 97 Oximetry 01/13/22 01/13/22 01/13/22 00:30 00:45 01:00 Temperature Pulse Rate 75 77 75 Pulse Rate [ From Monitor] Respiratory 33 H 27 H 29 H Rate Blood Pressure 113/74 113/74 96/72 O2 Sat by Pulse 98 99 98 Oximetry 01/13/22 01/13/22 01/13/22 01:15 01:30 01:45 Temperature Pulse Rate 74 72 70 Pulse Rate [ From Monitor] Respiratory 18 19 20 Rate Blood Pressure 113/74 117/76 111/71 O2 Sat by Pulse 100 99 98 Oximetry 01/13/22 01/13/22 01/13/22 02:00 02:15 02:30 Temperature Pulse Rate 71 71 72 Pulse Rate [ From Monitor] Respiratory 11 L 20 31 H Rate Blood Pressure 104/62 111/71 99/64 O2 Sat by Pulse 98 99 98 Oximetry 01/13/22 01/13/22 01/13/22 02:45 03:01 03:15 Temperature Pulse Rate 67 71 67 Pulse Rate [ From Monitor] Respiratory 30 H 30 H 30 H Rate Blood Pressure 99/62 95/57 95/57 O2 Sat by Pulse 98 98 98 Oximetry 01/13/22 01/13/22 01/13/22 03:31 03:45 04:00 Temperature 98.9 F Pulse Rate 72 69 68 Pulse Rate [ 81 From Monitor] Respiratory 30 H 30 H 30 H Rate Blood Pressure 92/57 94/67 103/68 O2 Sat by Pulse 96 97 97 Oximetry 01/13/22 01/13/22 01/13/22 04:10 04:15 04:30 Temperature Pulse Rate 68 69 69 Pulse Rate [ From Monitor] Respiratory 30 H 27 H Rate Blood Pressure 104/63 104/63 99/64 O2 Sat by Pulse 98 97 98 Oximetry 01/13/22 01/13/22 01/13/22 04:39 04:45 05:01 Temperature Pulse Rate 67 69 Pulse Rate [ From Monitor] Respiratory 28 H 28 H Rate Blood Pressure 106/73 100/64 O2 Sat by Pulse 98 98 97 Oximetry 01/13/22 01/13/22 01/13/22 05:15 05:30 05:45 Temperature Pulse Rate 69 70 69 Pulse Rate [ From Monitor] Respiratory 28 H 28 H 28 H Rate Blood Pressure 100/64 100/65 100/65 O2 Sat by Pulse 98 96 98 Oximetry 01/13/22 01/13/22 01/13/22 06:00 06:15 08:33 Temperature Pulse Rate 70 68 65 Pulse Rate [ From Monitor] Respiratory 28 H 28 H Rate Blood Pressure 99/63 99/63 100/66 O2 Sat by Pulse 96 98 99 Oximetry CBC and BMP: 01/16/22 05:10 01/16/22 05:10 ABG, PT/INR, D-dimer: ABG ABG pH 7.362 pH Units (7.350-7.450) 01/13/22 03:09 ABG pCO2 30.7 mm Hg 01/13/22 03:09 ABG pO2 226.5 mm Hg (80.0-90.0) H 01/13/22 03:09 ABG O2 Saturation 99.3 % (95.0-99.0) H 01/13/22 03:09 PT/INR, D-dimer PT 46.8 Sec. (12.2-14.9) H 01/13/22 04:04 INR 4.25 (0.87-1.13) H 01/13/22 04:04 Abnormal lab findings: Abnormal Labs 01/10/22 01/10/22 01/10/22 21:47 21:47 21:47 WBC RDW 19.5 H Lymph % (Auto) 6.0 L Lymph # (Auto) 0.3 L Seg Neutrophils % 85.9 H Seg Neutrophils # PT 27.8 H INR 2.25 H APTT 38.8 H ABG pH ABG pO2 ABG HCO3 ABG O2 Saturation ABG Base Excess ABG Hemoglobin Oxyhemoglobin Sodium 147 H Potassium 3.4 L Chloride 109.0 H Carbon Dioxide BUN 24 H Creatinine Glucose 149 H POC Glucose Lactic Acid Phosphorus Magnesium Total Bilirubin 1.30 H AST ALT Total Creatine Kinase Troponin T 0.063 H C-Reactive Protein Total Protein Albumin HDL Cholesterol 35 L Urine Blood Urine WBC (Auto) Urine Creatinine Urine Total Protein 01/10/22 01/11/22 01/11/22 21:47 00:12 00:15 WBC RDW Lymph % (Auto) Lymph # (Auto) Seg Neutrophils % Seg Neutrophils # PT INR APTT ABG pH ABG pO2 ABG HCO3 ABG O2 Saturation ABG Base Excess ABG Hemoglobin Oxyhemoglobin Sodium Potassium Chloride Carbon Dioxide BUN Creatinine Glucose POC Glucose 130 H Lactic Acid Phosphorus Magnesium 1.50 L Total Bilirubin AST ALT Total Creatine Kinase Troponin T 0.058 H C-Reactive Protein Total Protein Albumin HDL Cholesterol Urine Blood Urine WBC (Auto) Urine Creatinine Urine Total Protein 01/11/22 01/11/22 01/11/22 04:20 04:20 09:09 WBC RDW Lymph % (Auto) Lymph # (Auto) Seg Neutrophils % Seg Neutrophils # PT INR APTT ABG pH ABG pO2 ABG HCO3 ABG O2 Saturation ABG Base Excess ABG Hemoglobin Oxyhemoglobin Sodium Potassium Chloride Carbon Dioxide 21 L BUN 23 H Creatinine 1.4 H Glucose 157 H POC Glucose Lactic Acid Phosphorus Magnesium Total Bilirubin AST ALT Total Creatine Kinase Troponin T 0.075 H D C-Reactive Protein Total Protein Albumin HDL Cholesterol Urine Blood Large A Urine WBC (Auto) 22.0 H Urine Creatinine Urine Total Protein 01/11/22 01/11/22 01/11/22 09:19 09:55 14:15 WBC RDW Lymph % (Auto) Lymph # (Auto) Seg Neutrophils % Seg Neutrophils # PT INR APTT ABG pH 7.265 L ABG pO2 40.4 L ABG HCO3 ABG O2 Saturation 64.5 L ABG Base Excess -5.9 L -3.5 L ABG Hemoglobin Oxyhemoglobin 63.1 L 94.9 L Sodium Potassium Chloride Carbon Dioxide BUN Creatinine Glucose POC Glucose 236 H Lactic Acid Phosphorus Magnesium Total Bilirubin AST ALT Total Creatine Kinase Troponin T C-Reactive Protein Total Protein Albumin HDL Cholesterol Urine Blood Urine WBC (Auto) Urine Creatinine Urine Total Protein 01/11/22 01/11/22 01/11/22 17:09 19:41 19:41 WBC RDW Lymph % (Auto) Lymph # (Auto) Seg Neutrophils % Seg Neutrophils # PT INR APTT ABG pH ABG pO2 ABG HCO3 ABG O2 Saturation ABG Base Excess ABG Hemoglobin Oxyhemoglobin Sodium Potassium Chloride Carbon Dioxide 18 L BUN 34 H Creatinine 2.2 H D Glucose 153 H POC Glucose 137 H Lactic Acid 3.30 H* Phosphorus Magnesium Total Bilirubin AST ALT Total Creatine Kinase Troponin T C-Reactive Protein Total Protein Albumin HDL Cholesterol Urine Blood Urine WBC (Auto) Urine Creatinine Urine Total Protein 01/11/22 01/11/22 01/12/22 19:41 20:26 00:24 WBC RDW Lymph % (Auto) Lymph # (Auto) Seg Neutrophils % Seg Neutrophils # PT INR APTT ABG pH ABG pO2 218.2 H ABG HCO3 18.5 L ABG O2 Saturation 99.3 H ABG Base Excess -5.0 L ABG Hemoglobin Oxyhemoglobin Sodium Potassium Chloride Carbon Dioxide BUN Creatinine Glucose POC Glucose 155 H Lactic Acid Phosphorus 1.70 L Magnesium 4.80 H Total Bilirubin AST ALT Total Creatine Kinase Troponin T C-Reactive Protein Total Protein Albumin HDL Cholesterol Urine Blood Urine WBC (Auto) Urine Creatinine Urine Total Protein 01/12/22 01/12/22 01/12/22 05:10 05:10 05:10 WBC RDW Lymph % (Auto) Lymph # (Auto) Seg Neutrophils % Seg Neutrophils # PT 36.1 H INR 3.09 H APTT ABG pH ABG pO2 ABG HCO3 ABG O2 Saturation ABG Base Excess ABG Hemoglobin Oxyhemoglobin Sodium Potassium Chloride Carbon Dioxide BUN Creatinine Glucose POC Glucose Lactic Acid 3.80 H* Phosphorus Magnesium Total Bilirubin AST ALT Total Creatine Kinase Troponin T C-Reactive Protein 13.20 H Total Protein Albumin HDL Cholesterol Urine Blood Urine WBC (Auto) Urine Creatinine Urine Total Protein 01/12/22 01/12/22 01/12/22 05:20 08:57 09:30 WBC RDW Lymph % (Auto) Lymph # (Auto) Seg Neutrophils % Seg Neutrophils # PT INR APTT ABG pH ABG pO2 194.1 H ABG HCO3 ABG O2 Saturation 99.2 H ABG Base Excess ABG Hemoglobin 12.7 L Oxyhemoglobin Sodium Potassium Chloride Carbon Dioxide 21 L BUN 42 H Creatinine 3.3 H Glucose 178 H POC Glucose Lactic Acid 3.60 H* Phosphorus Magnesium Total Bilirubin AST 73 H ALT 79 H Total Creatine Kinase Troponin T C-Reactive Protein Total Protein 6.2 L Albumin 3.3 L HDL Cholesterol Urine Blood Urine WBC (Auto) Urine Creatinine Urine Total Protein 01/12/22 01/12/22 01/12/22 09:38 14:30 15:23 WBC RDW 20.0 H Lymph % (Auto) Lymph # (Auto) Seg Neutrophils % Seg Neutrophils # PT INR APTT ABG pH ABG pO2 ABG HCO3 ABG O2 Saturation ABG Base Excess ABG Hemoglobin Oxyhemoglobin Sodium Potassium Chloride Carbon Dioxide BUN Creatinine Glucose POC Glucose Lactic Acid 4.00 H* Phosphorus Magnesium Total Bilirubin AST ALT Total Creatine Kinase Troponin T C-Reactive Protein Total Protein Albumin HDL Cholesterol Urine Blood Urine WBC (Auto) Urine Creatinine 220.1 H Urine Total Protein 105 H 01/12/22 01/12/22 01/12/22 15:23 16:50 16:51 WBC RDW Lymph % (Auto) Lymph # (Auto) Seg Neutrophils % Seg Neutrophils # PT INR APTT ABG pH ABG pO2 ABG HCO3 ABG O2 Saturation ABG Base Excess ABG Hemoglobin Oxyhemoglobin Sodium Potassium Chloride Carbon Dioxide BUN Creatinine Glucose POC Glucose 207 H Lactic Acid Phosphorus Magnesium Total Bilirubin AST ALT Total Creatine Kinase 202 H Troponin T C-Reactive Protein Total Protein Albumin HDL Cholesterol Urine Blood Large A Urine WBC (Auto) 85.0 H Urine Creatinine Urine Total Protein 01/12/22 01/13/22 01/13/22 16:51 03:09 04:04 WBC RDW Lymph % (Auto) Lymph # (Auto) Seg Neutrophils % Seg Neutrophils # PT 46.8 H INR 4.25 H APTT ABG pH ABG pO2 226.5 H ABG HCO3 17.0 L ABG O2 Saturation 99.3 H ABG Base Excess -7.1 L ABG Hemoglobin 13.8 L Oxyhemoglobin Sodium Potassium Chloride Carbon Dioxide BUN Creatinine Glucose POC Glucose Lactic Acid Phosphorus Magnesium Total Bilirubin AST ALT Total Creatine Kinase Troponin T C-Reactive Protein Total Protein Albumin HDL Cholesterol Urine Blood Urine WBC (Auto) Urine Creatinine 224.3 H Urine Total Protein 105 H 01/13/22 01/13/22 06:31 08:28 WBC 12.1 H RDW 20.1 H Lymph % (Auto) 5.0 L Lymph # (Auto) 0.6 L Seg Neutrophils % 88.2 H Seg Neutrophils # 10.6 H PT INR APTT ABG pH ABG pO2 ABG HCO3 ABG O2 Saturation ABG Base Excess ABG Hemoglobin Oxyhemoglobin Sodium Potassium Chloride Carbon Dioxide BUN Creatinine Glucose POC Glucose 130 H Lactic Acid Phosphorus Magnesium Total Bilirubin AST ALT Total Creatine Kinase Troponin T C-Reactive Protein Total Protein Albumin HDL Cholesterol Urine Blood Urine WBC (Auto) Urine Creatinine Urine Total Protein Chest x-ray: image reviewed Allied health notes reviewed: RT
[2022-01-13 09:51] LABS: Calcium 8.8 mg/dL (8.4-10.2)
[2022-01-13] MEDS ORDERED: FUROSEMIDE 40 MG/4 ML INJ IV SCH (10:00)
[2022-01-13] MEDS: THIAMINE 100 MG TAB FEEDTUBE SCH (10:35)
[2022-01-13] MEDS: SENNOSIDES/DOCUSATE SODIUM 8.6/50 MG TAB FEEDTUBE SCH ×2 (10:36→22:03)
[2022-01-13] MEDS: FAMOTIDINE 10 MG TAB FEEDTUBE SCH ×2 (10:36→21:36)
--- NOTE | 2022-01-13 10:59 | Progress Note ---
Assessment and Plan Acute kidney injury, cr 2.2-->3.3-->4.9. Suspect ATN. Acute hypoxic respiratory failure, status post intubation Shock Ventricular tachycardia Coronary artery disease Congestive heart failure with reduced ejection fraction Elevated LFTs No proteinuria Ultrasound negative for acute pathology/hydronephrosis/retention Start sodium bicarb tablets Keep MAP more than 65 No immediate indication for dialysis, however if renal function continues to decline, he will need it over the next few days. Continue Thiamine supplementation Renally dose medications Avoid nephrotoxins Renal diet Thank you for involving us in the care of this patient. Total critical care time spent 34 minutes. Please call with questions. Subjective Date of service: 01/13/22 Principal diagnosis: Acute respiratory failure, acute on chronic HFrEF, MARCIO Interval history: Seen in ICU. Remains intubated. Objective - Exam Narrative Exam: General: Sedated. Intubated. HEENT: Oral mucosa moist Neck: Supple, no JVD Chest: Intubated. Mechanical breath sounds. Heart: RRR, S1 and S2, no pericardial rub Abdomen: Soft, nontender, no renal bruit Extremity: No peripheral cyanosis, edema Neurological: Alert, awake, no asterixis Dermatology: No skin rash Psych: No agitation Musculoskeletal: No joint effusion - Vital Signs Vital signs: Vital Signs - 12hr 01/12/22 01/12/22 01/12/22 23:01 23:15 23:30 Temperature Pulse Rate 73 75 76 Pulse Rate [ From Monitor] Respiratory 14 7 L 27 H Rate Blood Pressure 95/67 100/65 106/73 O2 Sat by Pulse 97 98 98 Oximetry 01/12/22 01/12/22 01/13/22 23:36 23:45 00:00 Temperature 99.1 F Pulse Rate 74 73 75 Pulse Rate [ 81 From Monitor] Respiratory 26 H 16 Rate Blood Pressure 106/73 105/81 111/75 O2 Sat by Pulse 99 98 Oximetry 01/13/22 01/13/22 01/13/22 00:15 00:30 00:45 Temperature Pulse Rate 77 75 77 Pulse Rate [ From Monitor] Respiratory 31 H 33 H 27 H Rate Blood Pressure 118/75 113/74 113/74 O2 Sat by Pulse 97 98 99 Oximetry 01/13/22 01/13/22 01/13/22 01:00 01:15 01:30 Temperature Pulse Rate 75 74 72 Pulse Rate [ From Monitor] Respiratory 29 H 18 19 Rate Blood Pressure 96/72 113/74 117/76 O2 Sat by Pulse 98 100 99 Oximetry 01/13/22 01/13/22 01/13/22 01:45 02:00 02:15 Temperature Pulse Rate 70 71 71 Pulse Rate [ From Monitor] Respiratory 20 11 L 20 Rate Blood Pressure 111/71 104/62 111/71 O2 Sat by Pulse 98 98 99 Oximetry 01/13/22 01/13/22 01/13/22 02:30 02:45 03:01 Temperature Pulse Rate 72 67 71 Pulse Rate [ From Monitor] Respiratory 31 H 30 H 30 H Rate Blood Pressure 99/64 99/62 95/57 O2 Sat by Pulse 98 98 98 Oximetry 01/13/22 01/13/22 01/13/22 03:15 03:31 03:45 Temperature Pulse Rate 67 72 69 Pulse Rate [ From Monitor] Respiratory 30 H 30 H 30 H Rate Blood Pressure 95/57 92/57 94/67 O2 Sat by Pulse 98 96 97 Oximetry 01/13/22 01/13/22 01/13/22 04:00 04:10 04:15 Temperature 98.9 F Pulse Rate 68 68 69 Pulse Rate [ 81 From Monitor] Respiratory 30 H 30 H Rate Blood Pressure 103/68 104/63 104/63 O2 Sat by Pulse 97 98 97 Oximetry 01/13/22 01/13/22 01/13/22 04:30 04:39 04:45 Temperature Pulse Rate 69 67 Pulse Rate [ From Monitor] Respiratory 27 H 28 H Rate Blood Pressure 99/64 106/73 O2 Sat by Pulse 98 98 98 Oximetry 01/13/22 01/13/22 01/13/22 05:01 05:15 05:30 Temperature Pulse Rate 69 69 70 Pulse Rate [ From Monitor] Respiratory 28 H 28 H 28 H Rate Blood Pressure 100/64 100/64 100/65 O2 Sat by Pulse 97 98 96 Oximetry 01/13/22 01/13/22 01/13/22 05:45 06:00 06:15 Temperature Pulse Rate 69 70 68 Pulse Rate [ From Monitor] Respiratory 28 H 28 H 28 H Rate Blood Pressure 100/65 99/63 99/63 O2 Sat by Pulse 98 96 98 Oximetry 01/13/22 01/13/22 01/13/22 06:30 06:45 07:00 Temperature Pulse Rate 67 67 67 Pulse Rate [ From Monitor] Respiratory 28 H 28 H 28 H Rate Blood Pressure 102/66 102/66 106/68 O2 Sat by Pulse 98 99 97 Oximetry 01/13/22 01/13/22 01/13/22 07:15 07:31 07:45 Temperature Pulse Rate 65 66 65 Pulse Rate [ From Monitor] Respiratory 28 H 28 H 28 H Rate Blood Pressure 106/68 93/62 93/62 O2 Sat by Pulse 99 96 99 Oximetry 01/13/22 01/13/22 01/13/22 08:00 08:15 08:30 Temperature 98.6 F Pulse Rate 65 65 65 Pulse Rate [ 84 From Monitor] Respiratory 28 H 28 H 28 H Rate Blood Pressure 101/66 101/66 100/66 O2 Sat by Pulse 96 99 97 Oximetry 01/13/22 01/13/22 01/13/22 08:33 08:45 09:00 Temperature Pulse Rate 65 69 69 Pulse Rate [ From Monitor] Respiratory 28 H 29 H Rate Blood Pressure 100/66 114/81 106/74 O2 Sat by Pulse 99 96 96 Oximetry - Lab 01/13/22 08:28 01/13/22 08:47 Most recent lab results ABG pH 7.362 pH Units (7.350-7.450) 01/13/22 03:09 ABG pCO2 30.7 mm Hg 01/13/22 03:09 ABG pO2 226.5 mm Hg (80.0-90.0) H 01/13/22 03:09 ABG HCO3 17.0 mmol/L (20.0-26.0) L 01/13/22 03:09 ABG O2 Saturation 99.3 % (95.0-99.0) H 01/13/22 03:09 Calcium 8.8 mg/dL (8.4-10.2) 01/13/22 08:47 Phosphorus 1.70 mg/dL (2.5-4.5) L 01/11/22 19:41 Magnesium 4.80 mg/dL (1.7-2.3) H 01/11/22 19:41 Urine Creatinine 224.3 mg/dL (0.1-20.0) H 01/12/22 16:51 Urine Total Protein 105 mg/dL (5-11.8) H 01/12/22 16:51 Medications & Allergies - Medications Allergies/Adverse Reactions: Allergies aspirin Adverse Reaction (Verified 01/10/22 21:41) Unknown patient is taking warfarin and has been advised to not take aspirin Home Medications: Home Medications Medication Instructions Recorded Confirmed Last Taken Type Isosorbide Mononitrate [Isosorbide 30 mg PO DAILY #30 tab.er.24h 08/20/13 03/28/19 01/15/17 08:00 Rx Mononitrate ER] carvediloL [Coreg] 25 mg PO BID #60 tablet 08/20/13 03/28/19 09/22/18 Rx Furosemide [Lasix] 40 mg PO DAILY #30 tablet 09/17/13 03/28/19 01/15/17 08:00 Rx AtorvaSTATin [Lipitor] 80 mg PO QHS #30 tablet 01/19/17 03/28/19 Unknown Rx amLODIPine 10 mg PO DAILY 09/23/18 03/28/19 09/22/18 History cloNIDine-TTS PATCH [Catapres-Tts 1 patch TD Q7D 09/23/18 03/28/19 09/21/18 History 0.1MG Patch] hydrALAZINE [Apresoline TAB] 50 mg PO TID 09/23/18 03/28/19 09/22/18 History metFORMIN [Glucophage] 500 mg PO BID 09/23/18 03/28/19 Unknown History Potassium Chloride [K-Dur] 10 meq PO QDAY 03/28/19 03/28/19 Unknown History Warfarin [Coumadin] 2.5 mg PO QDAY 03/28/19 03/28/19 Unknown History ISOSORBIDE MONOnitrate [Imdur ER] 30 mg PO QDAY #30 tablet 03/29/19 Unknown Rx Warfarin [Coumadin] 7.5 mg PO DAILY@1700 tablet 03/30/19 Unknown Rx Active Medications: Generic Name Dose Route Start Last Admin Trade Name Freq PRN Reason Stop Dose Admin Acetaminophen 650 mg 01/10/22 23:49 Acetaminophen 325 Mg Tab PO Q6H PRN Pain MILD(1-3)/Fever >100.5/[id number] Albuterol 2.5 mg 01/11/22 00:19 Albuterol 2.5 Mg/3 Ml Nebu IH Q4HRT PRN Shortness Of Breath Atorvastatin Calcium 80 mg 01/11/22 22:00 01/12/22 22:20 Atorvastatin 40 Mg Tab FEEDTUBE 80 mg QHS SHAKEEL Administration Dextrose 50 ml 01/10/22 23:49 Dextrose 50% In Water (25gm) 50 Ml Syringe IV Q30MIN PRN Hypoglycemia Protocol Famotidine 10 mg 01/13/22 11:00 01/13/22 10:36 Famotidine 10 Mg Tab FEEDTUBE 10 mg BID SHAKEEL Administration Fentanyl 50 mcg 01/11/22 09:28 Fentanyl 100 Mcg/2 Ml Inj IV Q10MIN PRN ANALGESIA Hydrophilic Ointment 1 applic 01/12/22 09:02 Lip Therapy Vaseline TP Q2HR PRN Dry Lips Propofol 1,000 mg in 100 mls @ 3.538 mls/hr 01/11/22 10:00 01/12/22 17:23 Diprivan 10 Mg/Ml IV 5 mcg/kg/min TITR SHAKEEL 3.538 mls/hr Titration Protocol 5 MCG/KG/MIN Fentanyl Citrate 2,000 mcg in 100 mls @ 5.897 mls/hr 01/11/22 10:00 Fentanyl Drip Premix IV TITR SHAKEEL Protocol 1 MCG/KG/HR Vasopressin 20 unit/ Sodium 101 mls @ 9.09 mls/hr 01/11/22 14:00 01/12/22 16:04 Chloride IV 0 units/min TITR SHAKEEL 0 mls/hr Titration Protocol 0.03 UNITS/MIN NORepinephrine/NS 8 MG-250 ML 8 mg in 250 mls @ 3.75 mls/hr 01/11/22 14:00 01/12/22 17:22 Norepinephrine/Ns 8 Mg-250 Ml (Double Conc) IV 0 mcg/min TITRATE SHAKEEL 0 mls/hr Titration Protocol 2 MCG/MIN Amiodarone HCl 900 mg/ 500 mls @ 33.333 mls/hr 01/12/22 15:00 01/13/22 10:37 Dextrose IV 0.5 mg/min DIRECT SHAKEEL 16.667 mls/hr Infusion Protocol 1 MG/MIN Insulin Human Lispro 0 unit 01/11/22 12:00 01/13/22 06:45 Insulin Lispro 100 Unit/Ml SUB-Q Not Given Q6HR SAHKEEL Protocol Magnesium Hydroxide 30 ml 01/10/22 23:49 Magnesium Hydroxide (Mom) Oral Liqd Udc PO Q4H PRN Constipation Multi-Ingred Cream/Lotion/Oil/Oint 1 applic 01/12/22 09:02 Mineral Oil/Petrolatum, White Ophth Oint 3.5 Gm OU Q4HR PRN Dry Eye(s) Ondansetron HCl 4 mg 01/10/22 23:49 Ondansetron 4 Mg/2 Ml Inj IV Q8H PRN Nausea And Vomiting Senna/Docusate Sodium 1 tab 01/12/22 10:00 01/13/22 10:36 Sennosides/Docusate Sodium 8.6/50 Mg Tab FEEDTUBE Not Given BID SHAKEEL Sodium Chloride 10 ml 01/11/22 10:00 01/13/22 10:36 Sodium Chloride 0.9% 10 Ml Flush Syringe IV 10 ml BID SHAKEEL Administration Sodium Chloride 10 ml 01/10/22 23:49 Sodium Chloride 0.9% 10 Ml Flush Syringe IV PRN PRN LINE FLUSH Thiamine HCl 100 mg 01/13/22 10:00 01/13/22 10:35 Thiamine 100 Mg Tab FEEDTUBE 100 mg QDAY SHAKEEL Administration
--- NOTE | 2022-01-13 11:34 | Progress Note ---
<TATUM MIRELES - Last Filed: 01/13/22 17:17> Assessment and Plan Assessment and plan: This is a 56-year-old AA male with known past medical history of NJ, aortic regurgitation, non-obstructive CAD, HFrEF, s/p AICD, diabetes, hyperlipidemia, and hypertension admitted for AICD discharge. Decompensated in the ED s/p emerge nt intubation now on ventilatory support, in fulminant pulmonary edema. Hospital Course to Date: 01/11: S/p emergent intubation by the ED physician due to increase WOB, tachypnea, and lethagy. [place] frothy sputum noted in ETT, fulminant pulmonary edema. Additional 40mg Iv lasix administered. Patient is Currently on high vent setting, 100% Fio2 and 16 of Peep. SPO2 remains labile, repeat ABG pending. CCM on consult for vent management. ST with BBB noted on the monitor, on amiodarone gtt for VTach per Cardio, VSS, echo pending. Monitor electrolytes and replete as needed. 76: Stable on the vent this am. This am ABG and Cxr noted. Now on pressors for hypotension, remains on amiodarone gtt. Accelerated junctional rhythm noted on the monitor this am, Dobutamine gtt held. 2D Echo pending. With worsen renal function this am, now oliguric, only 200cc in last 24hrs. IV lasix held, Nephrology consulted. Patient remains coagulopathic, per records patient was on Coumadin at home. INR 3.09 this am, Hold AC for now. 7/6: Remains stable on the vent, down to 50% Fio2 and 8 of peep this am. Plan for SAT trial this am to assess mentation, plan for possible PSV trial in the am. Patient is off pressors this am, remains on Amio gtt. Remains in a junctional rhythm with frequent ectopy. Enteral nutrition initiated. Remains oliguric with worsening renal function, awaiting Nephrology final recs. Assessment and Plan #Acute Hypoxic Respiratory Failure #Fulminant Pulmonary Edema-improved #Possible CAP - Emergently intubated in the ED on 01/11 due to increase WOB, tachypnea, and lethagy - [place] frothy sputum noted in ETT - CXR noted, suggesting pulmonary edema but can't exclude infectious Etiology - Vent setting:PRVC-50%,8,28,400 - This am ABG noted - Repeat CXR with resolution of the bilateral pulmonary edema or infiltrates - Continue empiric IV Abx initiated: RocephiMisael deckeritho for now - CCM consulted, appreciate recommendations - Continue to wean vent per CCM - VAP bundle addressed - Aspiration precaution HOB above 30 - Daily SBT and SAT trials as tolerated - Daily ABG and CXR - Continue SPO2 monitoring for SPO2 goal above 92% #Ventricular Tachycardia #Implantable Cardioverter-Defibrillator (ICD) discharge #CAD (Coronary Artery Disease) #Congestive Heart Failure with Reduce EF #Elevated troponin #HTN (Hypertension) - Presented with Chest pain - Went into in V.TACH in the ED, AICD discharged - Amiodarone bolus and drip was initiated per protocol - Troponin are elevated X2, probably due to demand ischemia - [address] with RBBB - manager call Human Resources Compliance Manager contacted in the ED, no evidence of ischemia noted at that time - s/p dobutamine gtt - Currently in Accelerated junctional rhythm with frequent ectopy - Lasix held due to worsen renal function - Resume home medications - Cardiology on consult, appreciated recommendations - Continue blood pressure monitor per protocol - Maintain MAP above 65 - AC on hold, INR 3.09, patient was on coumadin at home - Echo pending #Acute Kidney Injury(MARCIO) #Hypokalemia-improved - mild increased in scr. this am, most likely prerenal - S/p 80mg of IV lasix - Now oliguric with worsen renal function - IV lasix held - Nephrology consulted - Continue to trend BMP - Strict intake and output - Avoid nephrotoxic medications - Monitor and replace electrolytes as needed #Possible CAP - Presented with high fevers TMAX 101.1 - CXR noted, suggesting pulmonary edema but can't exclude infectious Etiology - COVID PCR negative - Blood cultures, UA, and sputum culture with NGTD - Empiric IV Abx initiated - F/u on cultures - Daily CBC monitor - Consider ID consult if febrile and if leukocytosis occur #Supratherapeutic INR - Patient was on coumadin at home due to recurrent CVA - INR 4.25 - No s/s of any active bleeding, no reversal warranted at this time - Continue to hold AC for now - Continue to trend PT/INR, resume home coumadin once INR less than 2 #Type 2 Diabetes Mellitus - BG check and SSI Q6hrs - Avoid hypoglycemia - While critically ill target blood glucose of 140-180 #GI/DVT Prophylaxis - PPI- Pepcid - SCDs to bilateral lower extremities while in bed #Advance Care Planning - Disease education data, care plan, diagnoses, and prognosis were discussed with patient's at the bedside. Patient is a FULL code. Patient's acknowledged understanding and agreement with current care plan. The high probability of a clinically significant, sudden or life threatening deterioration of the [multiple] system(s) required my full and direct attention, intervention and personal management. The aggregate critical care time was [60] minutes. This time is in addition to time spent performing reported procedures but includes the following: [x] Data Review and interpretation [x] Patient assessment and monitoring of vital signs [x] Documentation [x] Medication orders and management Disposition Plan: ICU Total Time Spent with Patient (Minutes): 60 History Interval history: Patient seen and examined in the bedside. Stable on the vent, on low dose propofol gtt. Move all extremities, but remains sedated. Off pressors this am, remains on Amiodarone gtt per Cardio. Still oliguric. JEREMY overnight Hospitalist Physical - Constitutional Vitals: Temp Pulse Resp BP Pulse Ox 98.6 F 69 29 H 106/74 96 01/13/22 08:00 01/13/22 09:00 01/13/22 09:00 01/13/22 09:00 01/13/22 09:00 General appearance: Present: no acute distress, obese, other (Intubated and sedated) - EENT Eyes: Present: PERRL - Neck Neck: Present: normal ROM - Respiratory Respiratory effort: normal Respiratory: bilateral: diminished - Cardiovascular Rhythm: irregularly irregular Heart Sounds: Present: S1 & S2 - Extremities Extremities: no ischemia, pulses intact, pulses symmetrical Extremity abnormal: edema - Peripheral Assessment Generalized Edema Type: Non-pitting Edema Degree: 2+ Capillary Refill: < 3 seconds Skin Temperature: Warm Peripheral Pulses: within normal limits - Abdominal General gastrointestinal: soft, non-distended, normal bowel sounds - Integumentary Integumentary: Present: warm, dry - Psychiatric Psychiatric: other (Intubated and sedated) - Neurologic Neurologic: moves all extremities (Non-Purposeful), other (Intubated and sedated) - Allied Health Allied health notes reviewed: nursing, case management HEART Score - HEART Score EKG: Non-specific Age: 45-65 Risk factors: > 3 risk factors or hx of atherosclerotic disease Troponin: Troponin T 0.075 ng/mL (0.00-0.029) H D 01/11/22 04:20 Troponin: 1-3x normal limit - Critical Actions Critical Actions: 4-6 pts:12-16.6% risk of adverse cardiac event. Should be admitted Results - Labs CBC & Chem 7: 01/13/22 08:28 01/13/22 08:47 Labs: Laboratory Last Values WBC 12.1 K/mm3 (4.5-11.0) H 01/13/22 08:28 RBC 4.68 M/mm3 (3.65-5.03) 01/13/22 08:28 Hgb 12.9 gm/dl (11.8-15.2) 01/13/22 08:28 Hct 40.0 % (35.5-45.6) 01/13/22 08:28 MCV 86 fl (84-94) 01/13/22 08:28 MCH 28 pg (28-32) 01/13/22 08:28 MCHC 32 % (32-34) 01/13/22 08:28 RDW 20.1 % (13.2-15.2) H 01/13/22 08:28 Plt Count 162 K/mm3 (140-440) 01/13/22 08:28 Lymph % (Auto) 5.0 % (13.4-35.0) L 01/13/22 08:28 [place] % (Auto) 6.5 % (0.0-7.3) 01/13/22 08:28 Eos % (Auto) 0.1 % (0.0-4.3) 01/13/22 08:28 Baso % (Auto) 0.2 % (0.0-1.8) 01/13/22 08:28 Lymph # (Auto) 0.6 K/mm3 (1.2-5.4) L 01/13/22 08:28 [place] # (Auto) 0.8 K/mm3 (0.0-0.8) 01/13/22 08:28 Eos # (Auto) 0.0 K/mm3 (0.0-0.4) 01/13/22 08:28 Baso # (Auto) 0.0 K/mm3 (0.0-0.1) 01/13/22 08:28 Seg Neutrophils % 88.2 % (40.0-70.0) H 01/13/22 08:28 Seg Neutrophils # 10.6 K/mm3 (1.8-7.7) H 01/13/22 08:28 PT 46.8 Sec. (12.2-14.9) H 01/13/22 04:04 INR 4.25 (0.87-1.13) H 01/13/22 04:04 APTT 38.8 Sec. (24.2-36.6) H 01/10/22 21:47 ABG pH 7.362 pH Units (7.350-7.450) 01/13/22 03:09 ABG pCO2 30.7 mm Hg 01/13/22 03:09 ABG pO2 226.5 mm Hg (80.0-90.0) H 01/13/22 03:09 ABG HCO3 17.0 mmol/L (20.0-26.0) L 01/13/22 03:09 ABG O2 Saturation 99.3 % (95.0-99.0) H 01/13/22 03:09 ABG O2 Content 19.4 (0.0-44) 01/13/22 03:09 ABG Base Excess -7.1 mmol/L (-2.0-3.0) L 01/13/22 03:09 ABG Hemoglobin 13.8 gm/dl (14.0-18.0) L 01/13/22 03:09 ABG Carboxyhemoglobin 1.4 % (0.0-5.0) 01/13/22 03:09 ABG Methemoglobin 0.6 % (0.0-1.5) 01/13/22 03:09 Oxyhemoglobin 97.4 % (95.0-99.0) 01/13/22 03:09 FiO2 50 % 01/13/22 03:09 Sodium 142 mmol/L (137-145) 01/13/22 08:47 Potassium 4.5 mmol/L (3.6-5.0) 01/13/22 08:47 Chloride 104.4 mmol/L (98-107) 01/13/22 08:47 Carbon Dioxide 19 mmol/L (22-30) L 01/13/22 08:47 Anion Gap 23 mmol/L 01/13/22 08:47 BUN 62 mg/dL (9-20) H 01/13/22 08:47 Creatinine 4.9 mg/dL (0.8-1.3) H 01/13/22 08:47 Estimated GFR 15 ml/min 01/13/22 08:47 BUN/Creatinine Ratio 13 % 01/13/22 08:47 Glucose 128 mg/dL (75-100) H 01/13/22 08:47 POC Glucose 130 mg/dL (70-105) H 01/13/22 06:31 Lactic Acid 4.00 mmol/L (0.7-2.0) H* 01/12/22 15:23 Calcium 8.8 mg/dL (8.4-10.2) 01/13/22 08:47 Phosphorus 1.70 mg/dL (2.5-4.5) L 01/11/22 19:41 Magnesium 4.80 mg/dL (1.7-2.3) H 01/11/22 19:41 Total Bilirubin 1.00 mg/dL (0.1-1.2) 01/12/22 08:57 AST 73 units/L (5-40) H 01/12/22 08:57 ALT 79 units/L (7-56) H 01/12/22 08:57 Alkaline Phosphatase 50 units/L (35-129) 01/12/22 08:57 Total Creatine Kinase 202 units/L (55-170) H 01/12/22 15:23 Troponin T 0.075 ng/mL (0.00-0.029) H D 01/11/22 04:20 C-Reactive Protein 13.20 mg/dL (0.00-1.30) H 01/12/22 05:10 Total Protein 6.2 g/dL (6.3-8.2) L 01/12/22 08:57 Albumin 3.3 g/dL (3.9-5) L 01/12/22 08:57 Albumin/Globulin Ratio 1.1 % 01/12/22 08:57 Triglycerides 94 mg/dL (2-149) 01/10/22 21:47 Cholesterol 113 mg/dL (50-199) 01/10/22 21:47 LDL Cholesterol Direct 72 mg/dL (50-130) 01/10/22 21:47 HDL Cholesterol 35 mg/dL (40-59) L 01/10/22 21:47 Cholesterol/HDL Ratio 3.22 % 01/10/22 21:47 Procalcitonin 42.50 ng/mL (<0.15) 01/12/22 05:10 Urine Color Yellow (Yellow) 01/12/22 16:51 Urine Turbidity Cloudy (Clear) 01/12/22 16:51 Urine pH 5.0 (5.0-7.0) 01/12/22 16:51 Ur Specific [place] 1.030 (1.003-1.030) 01/12/22 16:51 Urine Protein 30 mg/dl mg/dL (Negative) 01/12/22 16:51 Urine Glucose (UA) Negative mg/dL (Negative) 01/12/22 16:51 Urine Ketones Negative mg/dL (Negative) 01/12/22 16:51 Urine Blood Large (Negative) A 01/12/22 16:51 Urine Nitrite Negative (Negative) 01/12/22 16:51 Ur Reducing Substances Not Reportable 01/12/22 16:51 Urine Bilirubin Negative (Negative) 01/12/22 16:51 Urine Ictotest Not Reportable 01/12/22 16:51 Urine Urobilinogen 0.0 mg/dL (<2.0) 01/12/22 16:51 Ur Leukocyte Esterase Trace (Negative) 01/12/22 16:51 Urine WBC (Auto) 85.0 /HPF (0.0-6.0) H 01/12/22 16:51 Urine RBC (Auto) > 182.0 /HPF (0.0-6.0) 01/12/22 16:51 U Epithel Cells (Auto) 1.0 /HPF (0-13.0) 01/12/22 16:51 Urine WBC Clumps 1+ /HPF 01/12/22 16:51 Hyaline Casts 21 /LPF 01/12/22 16:51 Urine Mucus Few /HPF 01/12/22 16:51 Urine Yeast (Budding) Few /HPF 01/12/22 16:51 Urine Creatinine 224.3 mg/dL (0.1-20.0) H 01/12/22 16:51 Protein/Creatinin Ratio 0.47 01/12/22 16:51 Urine Total Protein 105 mg/dL (5-11.8) H 01/12/22 16:51 Coronavirus (PCR) Negative (Negative) 01/11/22 15:45 Blood Type B POSITIVE 01/10/22 21:47 Antibody Screen Negative 01/10/22 21:47 Microbiology: Microbiology 01/11/22 19:41 Peripheral/Venous Blood Culture - Preliminary NO GROWTH AFTER 24 HOURS 01/11/22 19:41 Peripheral/Venous Blood Culture - Preliminary NO GROWTH AFTER 24 HOURS [place]ante/IV: Voiding Method Indwelling Catheter Active Medications - Current Medications Current Medications: Generic Name Dose Route Start Last Admin Trade Name Freq PRN Reason Stop Dose Admin Acetaminophen 650 mg 01/10/22 23:49 Acetaminophen 325 Mg Tab PO Q6H PRN Pain MILD(1-3)/Fever >100.5/NÚÑEZ Albuterol 2.5 mg 01/11/22 00:19 Albuterol 2.5 Mg/3 Ml Nebu IH Q4HRT PRN Shortness Of Breath Atorvastatin Calcium 80 mg 01/11/22 22:00 01/12/22 22:20 Atorvastatin 40 Mg Tab FEEDTUBE 80 mg QHS SHAKEEL Administration Dextrose 50 ml 01/10/22 23:49 Dextrose 50% In Water (25gm) 50 Ml Syringe IV Q30MIN PRN Hypoglycemia Protocol Famotidine 10 mg 01/13/22 11:00 01/13/22 10:36 Famotidine 10 Mg Tab FEEDTUBE 10 mg BID SHAKEEL Administration Fentanyl 50 mcg 01/11/22 09:28 Fentanyl 100 Mcg/2 Ml Inj IV Q10MIN PRN ANALGESIA Hydrophilic Ointment 1 applic 01/12/22 09:02 Lip Therapy Vaseline TP Q2HR PRN Dry Lips Propofol 1,000 mg in 100 mls @ 3.538 mls/hr 01/11/22 10:00 01/12/22 17:23 Diprivan 10 Mg/Ml IV 5 mcg/kg/min TITR SHAKEEL 3.538 mls/hr Titration Protocol 5 MCG/KG/MIN Fentanyl Citrate 2,000 mcg in 100 mls @ 5.897 mls/hr 01/11/22 10:00 Fentanyl Drip Premix IV TITR SHAKEEL Protocol 1 MCG/KG/HR Vasopressin 20 unit/ Sodium 101 mls @ 9.09 mls/hr 01/11/22 14:00 07/06/22 16 :04 Chloride IV 0 units/min TITR SHAKEEL 0 mls/hr Titration Protocol 0.03 UNITS/MIN NORepinephrine/NS 8 MG-250 ML 8 mg in 250 mls @ 3.75 mls/hr 01/11/22 14:00 01/12/22 17:22 Norepinephrine/Ns 8 Mg-250 Ml (Double Conc) IV 0 mcg/min TITRATE SHAKEEL 0 mls/hr Titration Protocol 2 MCG/MIN Amiodarone HCl 900 mg/ 500 mls @ 33.333 mls/hr 01/12/22 15:00 01/13/22 10:37 Dextrose IV 0.5 mg/min DIRECT SHAKEEL 16.667 mls/hr Infusion Protocol 1 MG/MIN Dobutamine HCl/Dextrose 500 mg in 250 mls @ 8.845 mls/hr 01/13/22 12:00 Dobutrex Drip 500mg/D5w 250ml IV DIRECT SHAKEEL Protocol 2.5 MCG/KG/MIN Insulin Human Lispro 0 unit 01/11/22 12:00 01/13/22 06:45 Insulin Lispro 100 Unit/Ml SUB-Q Not Given Q6HR SHAKEEL Protocol Magnesium Hydroxide 30 ml 01/10/22 23:49 Magnesium Hydroxide (Mom) Oral Liqd Udc PO Q4H PRN Constipation Multi-Ingred Cream/Lotion/Oil/Oint 1 applic 01/12/22 09:02 Mineral Oil/Petrolatum, White Ophth Oint 3.5 Gm OU Q4HR PRN Dry Eye(s) Ondansetron HCl 4 mg 01/10/22 23:49 Ondansetron 4 Mg/2 Ml Inj IV Q8H PRN Nausea And Vomiting Senna/Docusate Sodium 1 tab 01/12/22 10:00 01/13/22 10:36 Sennosides/Docusate Sodium 8.6/50 Mg Tab FEEDTUBE Not Given BID SHAKEEL Sodium Chloride 10 ml 01/11/22 10:00 01/13/22 10:36 Sodium Chloride 0.9% 10 Ml Flush Syringe IV 10 ml BID SHAKEEL Administration Sodium Chloride 10 ml 01/10/22 23:49 Sodium Chloride 0.9% 10 Ml Flush Syringe IV PRN PRN LINE FLUSH Thiamine HCl 100 mg 01/13/22 10:00 01/13/22 10:35 Thiamine 100 Mg Tab FEEDTUBE 100 mg QDAY SHAKEEL Administration Nutrition/Malnutrition Assess - Dietary Evaluation Nutrition/Malnutrition Findings: Nutrition Notes Start: 01/11/22 12:57 Freq: Status: Active Protocol: Document 01/12/22 14:29 PB (Rec: 01/12/22 15:04 PB [id number]) Nutrition Notes Need for Assessment generated from: MD Order,divorce lawyer Initial or Follow up Assessment Current Diagnosis Acute Kidney Injury,Coronary Artery Disease,Diabetes, Hypertension,Respiratory Failure,Hyperlipidemia Other Pertinent Diagnosis s/p ICD Shock, HFrEF, Pulmonary Edema, [place] x2, NINFA, . .. Current Diet NPO (since 01/11 10:39), TF- Vital AF 1.2 Rey @ 60 ml/hr ( from D 01/12). Labs/Tests 01/12: CO2 21, BUN 42, Crea 3. 3, Glu 178. Pertinent Medications 01/12: Propofol @ 7.076 (187 Kcal), others nutritionally unremarkable. Height 5 ft 9 in Weight 117.934 kg [place] Body Weight (kg) 72.72 BMI 38.4 Intake Prior to Admission Good Weight change and time frame No body weight change reported in 1 day. Pt denies having loss body weight [place]ARER. Weight Status Obese Subjective/Other Information RD consult for skin risk assessment and write/manage TF . Pt currently on NPO. I will prescribe TF to provide Pt with energy/protein needs during LOS. Pt is on Mechanical Ventilation, O2 saturation @ 99%, according to Physical Assessment History notes. Pt shows no signs of concern for skin risk at the time, according to Physical Assessment History notes. Pt has been on Coumadin since 11/2020, according to Progress notes. Percent of energy/protein needs met: Pt currently on NPO. Prescribed TF-Vital AF 1.2 Rey @ 60 ml/hr provides for energy/protein needs (1,740 Kcal/109 g) during LOS, 87% Kcal; 100% AA. Including 187 Kcal from Propofol, 100% Kcal; 100% AA. Burn Absent Trauma Absent GI Symptoms None Food Allergy No Skin Integrity/Comment Assessment WNL. 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 As Evidenced by Signs and Symptoms Py is currently on NPO. Is patient on ventilator? Yes Is Patient Ambulatory and/or Out of Bed No REE-([place]-confined to bed) [phone] Kcal/Kg value to use for calculation 17 Approximate Energy Requirements Using 2005 kcal/Kg Calculation Used for Recommendations Kcal/kg Additional Notes Protein: 0.8-1.2 g/Kg AdjBW; 77-115 g/day. Fluids: 1 ml/Kcal, or as per MD. Nutrition Intervention Nutrition Support: Start TF-Vital AF 1.2 Rey @ 60 ml/hr. Flush: 140 ml water Q 4 hr, or as per MD. Kcal 1,740 Protein (gm) 109 Carbohydrates (gm) 160 Fat (gm) 78 Fluid (mL) 1,176 Fiber (gm) 7 % RDI: 87% Kcal; 100% AA. Goal #1 Provide at least 75% of energy /protein needs through Enteral Feeding during LOS. Follow-Up By: 01/14/22 Additional Comments Start monitoring TF tolerance and BM. <NESTOR CLEMENS - Last Filed: 01/14/22 07:06> Assessment and Plan Assessment and plan: I saw and evaluated the patient. I agree with the findings and the plan of care as documented in the Nurse Practitioner's~note, with the following corrections and additions. Hospitalist Physical - Constitutional Vitals: Temp Pulse Resp BP Pulse Ox 97.8 F 73 28 H 108/67 98 01/14/22 04:00 01/14/22 07:00 01/14/22 07:00 01/14/22 07:00 01/14/22 07:00 HEART Score - HEART Score Troponin: Troponin T 0.075 ng/mL (0.00-0.029) H D 01/11/22 04:20 Results - Labs CBC & Chem 7: 01/14/22 04:00 01/14/22 04:00 Labs: Laboratory Last Values WBC 11.5 K/mm3 (4.5-11.0) H 01/14/22 04:00 RBC 4.34 M/mm3 (3.65-5.03) 01/14/22 04:00 Hgb 11.7 gm/dl (11.8-15.2) L 01/14/22 04:00 Hct 36.4 % (35.5-45.6) 01/14/22 04:00 MCV 84 fl (84-94) 01/14/22 04:00 MCH 27 pg (28-32) L 01/14/22 04:00 MCHC 32 % (32-34) 01/14/22 04:00 RDW 19.8 % (13.2-15.2) H 01/14/22 04:00 Plt Count 147 K/mm3 (140-440) 01/14/22 04:00 Lymph % (Auto) 5.0 % (13.4-35.0) L 01/13/22 08:28 [place] % (Auto) 6.5 % (0.0-7.3) 01/13/22 08:28 Eos % (Auto) 0.1 % (0.0-4.3) 01/13/22 08:28 Baso % (Auto) 0.2 % (0.0-1.8) 01/13/22 08:28 Lymph # (Auto) 0.6 K/mm3 (1.2-5.4) L 01/13/22 08:28 [place] # (Auto) 0.8 K/mm3 (0.0-0.8) 01/13/22 08:28 Eos # (Auto) 0.0 K/mm3 (0.0-0.4) 01/13/22 08:28 Baso # (Auto) 0.0 K/mm3 (0.0-0.1) 01/13/22 08:28 Seg Neutrophils % 88.2 % (40.0-70.0) H 01/13/22 08:28 Seg Neutrophils # 10.6 K/mm3 (1.8-7.7) H 01/13/22 08:28 PT 49.5 Sec. (12.2-14.9) H 01/14/22 Unknown INR 4.55 (0.87-1.13) H 01/14/22 Unknown APTT 38.8 Sec. (24.2-36.6) H 01/10/22 21:47 ABG pH 7.397 pH Units (7.350-7.450) 01/14/22 04:20 ABG pCO2 37.0 mm Hg 01/14/22 04:20 ABG pO2 45.7 mm Hg (80.0-90.0) L 01/14/22 04:20 ABG HCO3 22.2 mmol/L (20.0-26.0) 01/14/22 04:20 ABG O2 Saturation 77.6 % (95.0-99.0) L 01/14/22 04:20 ABG O2 Content 13.0 (0.0-44) 01/14/22 04:20 ABG Base Excess -2.2 mmol/L (-2.0-3.0) L 01/14/22 04:20 ABG Hemoglobin 12.2 gm/dl (14.0-18.0) L 01/14/22 04:20 ABG Carboxyhemoglobin 1.4 % (0.0-5.0) 01/14/22 04:20 ABG Methemoglobin 0.9 % (0.0-1.5) 01/14/22 04:20 Oxyhemoglobin 75.8 % (95.0-99.0) L 01/14/22 04:20 FiO2 40 % 01/14/22 04:20 Sodium 141 mmol/L (137-145) 01/14/22 04:00 Potassium 3.5 mmol/L (3.6-5.0) L D 01/14/22 04:00 Chloride 104.3 mmol/L (98-107) 01/14/22 04:00 Carbon Dioxide 21 mmol/L (22-30) L 01/14/22 04:00 Anion Gap 19 mmol/L 01/14/22 04:00 BUN 81 mg/dL (9-20) H 01/14/22 04:00 Creatinine 5.2 mg/dL (0.8-1.3) H 01/14/22 04:00 Estimated GFR 14 ml/min 01/14/22 04:00 BUN/Creatinine Ratio 16 % 01/14/22 04:00 Glucose 133 mg/dL (75-100) H 01/14/22 04:00 POC Glucose 117 mg/dL (70-105) H 01/14/22 05:46 Lactic Acid 4.00 mmol/L (0.7-2.0) H* 01/12/22 15:23 Calcium 8.1 mg/dL (8.4-10.2) L 01/14/22 04:00 Phosphorus 1.70 mg/dL (2.5-4.5) L 01/11/22 19:41 Magnesium 4.80 mg/dL (1.7-2.3) H 01/11/22 19:41 Total Bilirubin 1.00 mg/dL (0.1-1.2) 01/12/22 08:57 AST 73 units/L (5-40) H 01/12/22 08:57 ALT 79 units/L (7-56) H 01/12/22 08:57 Alkaline Phosphatase 50 units/L (35-129) 01/12/22 08:57 Total Creatine Kinase 202 units/L (55-170) H 01/12/22 15:23 Troponin T 0.075 ng/mL (0.00-0.029) H D 01/11/22 04:20 C-Reactive Protein 13.20 mg/dL (0.00-1.30) H 01/12/22 05:10 Total Protein 6.2 g/dL (6.3-8.2) L 01/12/22 08:57 Albumin 3.3 g/dL (3.9-5) L 01/12/22 08:57 Albumin/Globulin Ratio 1.1 % 01/12/22 08:57 Triglycerides 94 mg/dL (2-149) 01/10/22 21:47 Cholesterol 113 mg/dL (50-199) 01/10/22 21:47 LDL Cholesterol Direct 72 mg/dL (50-130) 01/10/22 21:47 HDL Cholesterol 35 mg/dL (40-59) L 01/10/22 21:47 Cholesterol/HDL Ratio 3.22 % 01/10/22 21:47 Procalcitonin 42.50 ng/mL (<0.15) 01/12/22 05:10 Urine Color Yellow (Yellow) 01/12/22 16:51 Urine Turbidity Cloudy (Clear) 01/12/22 16:51 Urine pH 5.0 (5.0-7.0) 01/12/22 16:51 Ur Specific [place] 1.030 (1.003-1.030) 01/12/22 16:51 Urine Protein 30 mg/dl mg/dL (Negative) 01/12/22 16:51 Urine Glucose (UA) Negative mg/dL (Negative) 01/12/22 16:51 Urine Ketones Negative mg/dL (Negative) 01/12/22 16:51 Urine Blood Large (Negative) A 01/12/22 16:51 Urine Nitrite Negative (Negative) 01/12/22 16:51 Ur Reducing Substances Not Reportable 01/12/22 16:51 Urine Bilirubin Negative (Negative) 01/12/22 16:51 Urine Ictotest Not Reportable 01/12/22 16:51 Urine Urobilinogen 0.0 mg/dL (<2.0) 01/12/22 16:51 Ur Leukocyte Esterase Trace (Negative) 01/12/22 16:51 Urine WBC (Auto) 85.0 /HPF (0.0-6.0) H 01/12/22 16:51 Urine RBC (Auto) > 182.0 /HPF (0.0-6.0) 01/12/22 16:51 U Epithel Cells (Auto) 1.0 /HPF (0-13.0) 01/12/22 16:51 Urine WBC Clumps 1+ /HPF 01/12/22 16:51 Hyaline Casts 21 /LPF 01/12/22 16:51 Urine Mucus Few /HPF 01/12/22 16:51 Urine Yeast (Budding) Few /HPF 01/12/22 16:51 Urine Creatinine 224.3 mg/dL (0.1-20.0) H 01/12/22 16:51 Protein/Creatinin Ratio 0.47 01/12/22 16:51 Urine Total Protein 105 mg/dL (5-11.8) H 01/12/22 16:51 Coronavirus (PCR) Negative (Negative) 01/11/22 15:45 Blood Type B POSITIVE 01/10/22 21:47 Antibody Screen Negative 01/10/22 21:47 Microbiology: Microbiology 01/11/22 19:41 Peripheral/Venous Blood Culture - Preliminary NO GROWTH AFTER 48 HOURS 01/11/22 19:41 Peripheral/Venous Blood Culture - Preliminary NO GROWTH AFTER 48 HOURS 01/11/22 23:57 Tracheal Aspirate Sputum Culture - Preliminary 01/12/22 09:02 Urine,Catheterized - Indwelling Catheter Urine Culture - Preliminary NO GROWTH AFTER 24 HOURS [place]ustamante/IV: Voiding Method Indwelling Catheter Active Medications - Current Medications Current Medications: Generic Name Dose Route Start Last Admin Trade Name Freq PRN Reason Stop Dose Admin Acetaminophen 650 mg 01/10/22 23:49 Acetaminophen 325 Mg Tab PO Q6H PRN Pain MILD(1-3)/Fever >100.5/[id number] Albuterol 2.5 mg 01/11/22 00:19 Albuterol 2.5 Mg/3 Ml Nebu IH Q4HRT PRN Shortness Of Breath Atorvastatin Calcium 80 mg 01/11/22 22:00 01/13/22 21:36 Atorvastatin 40 Mg Tab FEEDTUBE 80 mg QHS SHAKEEL Administration Dextrose 50 ml 01/10/22 23:49 Dextrose 50% In Water (25gm) 50 Ml Syringe IV Q30MIN PRN Hypoglycemia Protocol Famotidine 10 mg 01/13/22 11:00 01/13/22 21:36 Famotidine 10 Mg Tab FEEDTUBE 10 mg BID SHAKEEL Administration Fentanyl 50 mcg 01/11/22 09:28 01/13/22 21:35 Fentanyl 100 Mcg/2 Ml Inj IV 50 mcg Q10MIN PRN Administration ANALGESIA Hydrophilic Ointment 1 applic 01/12/22 09:02 Lip Therapy Vaseline TP Q2HR PRN Dry Lips Propofol 1,000 mg in 100 mls @ 3.538 mls/hr 01/11/22 10:00 01/13/22 15:24 Diprivan 10 Mg/Ml IV 5 mcg/kg/min TITR SHAKEEL 3.538 mls/hr Administration Protocol 5 MCG/KG/MIN Fentanyl Citrate 2,000 mcg in 100 mls @ 5.897 mls/hr 01/11/22 10:00 Fentanyl Drip Premix IV TITR SHAKEEL Protocol 1 MCG/KG/HR Vasopressin 20 unit/ Sodium 101 mls @ 9.09 mls/hr 01/11/22 14:00 01/12/22 16:04 Chloride IV 0 units/min TITR SHAKEEL 0 mls/hr Titration Protocol 0.03 UNITS/MIN NORepinephrine/NS 8 MG-250 ML 8 mg in 250 mls @ 3.75 mls/hr 01/11/22 14:00 01/12/22 17:22 Norepinephrine/Ns 8 Mg-250 Ml (Double Conc) IV 0 mcg/min TITRATE SHAKEEL 0 mls/hr Titration Protocol 2 MCG/MIN Amiodarone HCl 900 mg/ 500 mls @ 33.333 mls/hr 01/12/22 15:00 01/13/22 17:33 Dextrose IV 0.5 mg/min DIRECT SHAKEEL 16.667 mls/hr Administration Protocol 1 MG/MIN Dobutamine HCl/Dextrose 500 mg in 250 mls @ 8.845 mls/hr 01/13/22 12:00 01/13/22 12:39 Dobutrex Drip 500mg/D5w 250ml IV 2.5 mcg/kg/min DIRECT SHAKEEL 8.845 mls/hr Administration Protocol 2.5 MCG/KG/MIN Insulin Human Lispro 0 unit 01/11/22 12:00 01/14/22 06:24 Insulin Lispro 100 Unit/Ml SUB-Q Not Given Q6HR [facility] Protocol Magnesium Hydroxide 30 ml 01/10/22 23:49 Magnesium Hydroxide (Mom) Oral Liqd Udc PO Q4H PRN Constipation Multi-Ingred Cream/Lotion/Oil/Oint 1 applic 01/12/22 09:02 Mineral Oil/Petrolatum, White Ophth Oint 3.5 Gm OU Q4HR PRN Dry Eye(s) Ondansetron HCl 4 mg 01/10/22 23:49 Ondansetron 4 Mg/2 Ml Inj IV Q8H PRN Nausea And Vomiting Senna/Docusate Sodium 1 tab 01/12/22 10:00 01/13/22 22:03 Sennosides/Docusate Sodium 8.6/50 Mg Tab FEEDTUBE Not Given BID SHAKEEL Sodium Bicarbonate 1,300 mg 01/13/22 14:00 01/13/22 21:36 Sodium Bicarbonate 650 Mg Tab PO 1,300 mg TID SHAKEEL Administration Sodium Chloride 10 ml 01/11/22 10:00 01/13/22 21:36 Sodium Chloride 0.9% 10 Ml Flush Syringe IV 10 ml BID SHAKEEL Administration Sodium Chloride 10 ml 01/10/22 23:49 Sodium Chloride 0.9% 10 Ml Flush Syringe IV PRN PRN LINE FLUSH Thiamine HCl 100 mg 01/13/22 10:00 01/13/22 10:35 Thiamine 100 Mg Tab FEEDTUBE 100 mg QDAY SHAKEEL Administration Nutrition/Malnutrition Assess - Dietary Evaluation Nutrition/Malnutrition Findings: Nutrition Notes Start: 01/11/22 12:57 Freq: Status: Active Protocol: Document 01/12/22 14:29 PB (Rec: 01/12/22 15:04 PB [id number]) Nutrition Notes Need for Assessment generated from: Order,divorce lawyer Initial or Follow up Assessment Current Diagnosis Acute Kidney Injury,Coronary Artery Disease,Diabetes, Hypertension,Respiratory Failure,Hyperlipidemia Other Pertinent Diagnosis s/p ICD Shock, HFrEF, Pulmonary Edema, [place] x2, NINFA, . .. Current Diet NPO (since 01/11 10:39), TF- Vital AF 1.2 Rey @ 60 ml/hr ( from D 01/12). Labs/Tests 01/12: CO2 21, BUN 42, Crea 3. 3, Glu 178. Pertinent Medications 01/12: Propofol @ 7.076 (187 Kcal), others nutritionally unremarkable. Height 5 ft 9 in Weight 117.934 kg [place] Body Weight (kg) 72.72 BMI 38.4 Intake Prior to Admission Good Weight change and time frame No body weight change reported in 1 day. Pt denies having loss body weight [employer]. Weight Status Obese Subjective/Other Information RD consult for skin risk assessment and write/manage TF . Pt currently on NPO. I will prescribe TF to provide Pt with energy/protein needs during LOS. Pt is on Mechanical Ventilation, O2 saturation @ 99%, according to Physical Assessment History notes. Pt shows no signs of concern for skin risk at the time, according to Physical Assessment History notes. Pt has been on Coumadin since 11/2020, according to Progress notes. Percent of energy/protein needs met: Pt currently on NPO. Prescribed TF-Vital AF 1.2 Rey @ 60 ml/hr provides for energy/protein needs (1,740 Kcal/109 g) during LOS, 87% Kcal; 100% AA. Including 187 Kcal from Propofol, 100% Kcal; 100% AA. Burn Absent Trauma Absent GI Symptoms None Food Allergy No Skin Integrity/Comment Assessment WNL. 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 As Evidenced by Signs and Symptoms Py is currently on NPO. Is patient on ventilator? Yes Is Patient Ambulatory and/or Out of Bed No REE-([facility]-confined to bed) [phone] Kcal/Kg value to use for calculation 17 Approximate Energy Requirements Using 2005 kcal/Kg Calculation Used for Recommendations Kcal/kg Additional Notes Protein: 0.8-1.2 g/Kg AdjBW; 77-115 g/day. Fluids: 1 ml/Kcal, or as per MD. Nutrition Intervention Nutrition Support: Start TF-Vital AF 1.2 Rey @ 60 ml/hr. Flush: 140 ml water Q 4 hr, or as per MD. Kcal 1,740 Protein (gm) 109 Carbohydrates (gm) 160 Fat (gm) 78 Fluid (mL) 1,176 Fiber (gm) 7 % RDI: 87% Kcal; 100% AA. Goal #1 Provide at least 75% of energy /protein needs through Enteral Feeding during LOS. Follow-Up By: 01/14/22 Additional Comments Start monitoring TF tolerance and BM.
[2022-01-13] MEDS: DOBUTamine/D5W 500 MG/250 ML 500 MG/250 ML BAG IV SCH (12:39)
--- NOTE | 2022-01-13 14:00 | Progress Note ---
Assessment and Plan This is a 56-year-old -[place] male, who follows with Dr. KURTIS Ferrer, with past medical history of aortic regurgitation, non-obstructive CAD (via [facility] 2009) HFrEF, diabetes, hyperlipidemia, hypertension, s/p BI-V ICD ([facility] [facility]) Acute on chronic HFrEF Acute Pulmonary edema - copious pink, frothy sputum noted on intubation Acute Hypoxic Respiratory Failure-pulmonology following S/p ICD shock MARCIO-nephrology following Mildly elevated troponin- likely 2/2 to acutely decompensated HF/pulmonary edema/ICD shocks Hyperlipidemia Hypertension DM - mangement per primary team S/p Bi-V ICD ([facility] [facility]) H/o Stroke (OAC with Coumadin since 11/2020) H/o Prostate CA (2020) Home medications: Amlodipine 5 mg p.o. daily, atorvastatin 80 mg p.o. nightly, clonidine 0.1 mg transdermal patch q. 7 days, carvedilol 25 mg p.o. twice daily, hydralazine 50 mg p.o. 3 times daily, Imdur 30 mg p.o. every morning, Lasix 40 mg p.o. daily, metformin 500 mg p.o. twice daily, warfarin 5 mg tablet p.o. daily. Echocardiogram 03/2019: Mild to moderate concentric LV hypertrophy is observed. The LV size is moderate to severely dilated. RV global systolic function is mildly reduced. Mild aortic regurgitation. RV systolic pressure is calculated at 21 mmHg. Global LV systolic function is severely decreased. Estimated EF is 20 to 25%. Cath- 05/2010 at [facility]: Nonobstructive CAD Echo 01/11/2022-EF 10 to 15%. LV is severely dilated. Severe global hypokinesis of LV. Left ventricular diastolic function is indeterminate. Right ventricle is dilated. Right ventricle is hypokinetic. Left atrium is mildly dilated. Trace to mild aortic regurgitation. Mild mitral regurgitation. Mild tricuspid regurgitation. IVC is dilated. IVC collapses with less than 50% of inspiration Plan: Echocardiogramresults noted above. Due to decreased EF will initiate dobutamine drip Per staff patient not having good urine output and patient having worsening renal function will defer volume management to nephrology No FABY or ARB due to renal function Continue statin however, no asa due to allergy. Patient pressures are soft we will continue to hold beta-christopher at this time Continue Amiodorone gtt Device interrogation pending Strict I & O and DW. Other management per primary teams. Patient seen in conjunction with Dr. Connolly who agrees with the assessment and management of this patient. - Patient Problems (1) MARCIO (acute kidney injury) Current Visit: No Status: Acute (2) Non-ischemic cardiomyopathy Current Visit: No Status: Chronic (3) Acute pulmonary edema Current Visit: No Status: Acute (4) CAD (coronary artery disease) Current Visit: No Status: Chronic (5) Acute respiratory failure with hypoxemia Current Visit: No Status: Acute (6) Acute on chronic HFrEF (heart failure with reduced ejection fraction) Current Visit: No Status: Acute (7) Ischemic cardiomyopathy Current Visit: No Status: Chronic (8) Automatic implantable cardioverter-defibrillator in situ Current Visit: No Status: Chronic (9) HTN (hypertension) Current Visit: No Status: Chronic (10) Obesity Current Visit: No Status: Chronic (11) History of CVA (cerebrovascular accident) Current Visit: No Status: Chronic (12) Implantable cardioverter-defibrillator (ICD) discharge Current Visit: Yes Status: Acute (13) Ventricular tachycardia (paroxysmal) Current Visit: Yes Status: Acute Subjective Date of service: 01/13/22 Principal diagnosis: Acute respiratory failure, acute on chronic HFrEF, MARCIO Interval history: Patient remains intubated and sedated Sinus 90s RBBB and PVCs Objective Vital Signs Temp Pulse Pulse Resp BP Pulse Ox 01/13/22 13:32 69 106/74 99 01/13/22 09:00 69 29 H 106/74 96 01/13/22 08:45 69 28 H 114/81 96 01/13/22 08:33 65 100/66 99 01/13/22 08:30 65 28 H 100/66 97 01/13/22 08:15 65 28 H 101/66 99 01/13/22 08:00 98.6 F 65 84 28 H 101/66 96 01/13/22 07:45 65 28 H 93/62 99 01/13/22 07:31 66 28 H 93/62 96 01/13/22 07:15 65 28 H 106/68 99 01/13/22 07:00 67 28 H 106/68 97 01/13/22 06:45 67 28 H 102/66 99 01/13/22 06:30 67 28 H 102/66 98 01/13/22 06:15 68 28 H 99/63 98 01/13/22 06:00 70 28 H 99/63 96 01/13/22 05:45 69 28 H 100/65 98 01/13/22 05:30 70 28 H 100/65 96 01/13/22 05:15 69 28 H 100/64 98 01/13/22 05:01 69 28 H 100/64 97 01/13/22 04:45 67 28 H 106/73 98 01/13/22 04:39 98 01/13/22 04:30 69 27 H 99/64 98 01/13/22 04:15 69 30 H 104/63 97 01/13/22 04:10 68 104/63 98 01/13/22 04:00 98.9 F 68 81 30 H 103/68 97 01/13/22 03:45 69 30 H 94/67 97 01/13/22 03:31 72 30 H 92/57 96 01/13/22 03:15 67 30 H 95/57 98 01/13/22 03:01 71 30 H 95/57 98 01/13/22 02:45 67 30 H 99/62 98 01/13/22 02:30 72 31 H 99/64 98 01/13/22 02:15 71 20 111/71 99 01/13/22 02:00 71 11 L 104/62 98 01/13/22 01:45 70 20 111/71 98 01/13/22 01:30 72 19 117/76 99 01/13/22 01:15 74 18 113/74 100 01/13/22 01:00 75 29 H 96/72 98 01/13/22 00:45 77 27 H 113/74 99 01/13/22 00:30 75 33 H 113/74 98 01/13/22 00:15 77 31 H 118/75 97 01/13/22 00:00 99.1 F 75 81 16 111/75 98 01/12/22 23:45 73 26 H 105/81 07 23:36 74 106/73 99 01/12/22 23:30 76 27 H 106/73 98 01/12/22 23:15 75 7 L 100/65 98 01/12/22 23:01 73 14 95/67 97 01/12/22 22:46 74 14 96/75 99 0706/22 22:31 75 9 L 96/75 97 01/12/22 22:15 75 8 L 93/66 98 01/12/22 22:00 74 13 92/66 98 01/12/22 21:45 70 15 108/71 98 01/12/22 21:30 73 14 105/73 96 01/12/22 21:15 73 14 110/72 98 01/12/22 21:00 72 15 105/70 98 01/12/22 20:51 74 25 H 114/74 99 01/12/22 20:45 75 22 114/74 99 01/12/22 20:30 75 24 122/70 99 01/12/22 20:22 76 124/74 99 01/12/22 20:15 76 32 H 124/74 98 01/12/22 20:00 98.9 F 79 81 31 H 116/80 98 01/12/22 19:45 81 31 H 113/77 98 01/12/22 19:30 83 30 H 108/78 01/12/22 19:15 77 30 H 108/78 01/12/22 19:00 77 30 H 95/71 97 01/12/22 18:45 80 30 H 105/69 97 01/12/22 18:31 78 30 H 102/64 96 01/12/22 18:15 78 8 L 111/73 98 01/12/22 18:00 76 29 H 124/74 97 01/12/22 17:45 77 31 H 120/79 97 01/12/22 17:30 76 27 H 119/75 98 01/12/22 17:15 73 32 H 117/69 98 01/12/22 17:00 76 38 H 122/71 98 01/12/22 16:45 77 31 H 129/83 82 L 06 16:30 76 32 H 129/83 98 01/12/22 16:15 78 30 H 118/62 98 01/12/22 16:01 79 43 H 113/80 97 01/12/22 16:00 98.2 F 79 81 30 H 113/80 97 01/12/22 15:59 81 01/12/22 15:45 81 35 H 124/78 98 01/12/22 15:30 82 49 H 123/82 97 07/06/22 15:15 79 36 H 129/100 01/12/22 15:00 78 26 H 129/100 98 01/12/22 14:45 79 38 H 120/75 01/12/22 14:31 84 45 H 141/89 97 01/12/22 14:15 81 44 H 112/90 99 01/12/22 14:00 80 45 H 112/90 98 - Physical Examination General: Other (Intubated) Neck: Positive: trachea midline Cardiac: Positive: Reg Rate and Rhythm Lungs: Positive: Ventilated Respirations Neuro: Positive: Other (Somnolent. Will ) Abdomen: Positive: Active Bowel Sounds Skin: Negative: Rash Extremities: Present: edema (ble), Cool - Labs and Meds Coagulation 01/13/22 Range/Units 04:04 PT 46.8 H (12.2-14.9) Sec. INR 4.25 H (0.87-1.13) CBC 01/13/22 Range/Units 08:28 WBC 12.1 H (4.5-11.0) K/mm3 RBC 4.68 (3.65-5.03) M/mm3 Hgb 12.9 (11.8-15.2) gm/dl Hct 40.0 (35.5-45.6) % Plt Count 162 (140-440) K/mm3 Lymph # (Auto) 0.6 L (1.2-5.4) K/mm3 Lamb # (Auto) 0.8 (0.0-0.8) K/mm3 Eos # (Auto) 0.0 (0.0-0.4) K/mm3 Baso # (Auto) 0.0 (0.0-0.1) K/mm3 Comprehensive Metabolic Panel 01/13/22 Range/Units 08:47 Sodium 142 (137-145) mmol/L Potassium 4.5 (3.6-5.0) mmol/L Chloride 104.4 (98-107) mmol/L Carbon Dioxide 19 L (22-30) mmol/L BUN 62 H (9-20) mg/dL Creatinine 4.9 H (0.8-1.3) mg/dL Glucose 128 H (75-100) mg/dL Calcium 8.8 (8.4-10.2) mg/dL - Imaging and Cardiology EKG: report reviewed, image reviewed Echo: report reviewed - Telemetry EKG Rhythm: Sinus Rhythm - EKG Sinus rhythms and dysrhythmias: sinus rhythm (RBBB)
[2022-01-13] MEDS: SODIUM BICARBONATE 650 MG TAB PO SCH ×2 (15:24→21:36)
[2022-01-13] MEDS: AMIODARONE 900 MG in DEXTROSE 5% IN WATER 482 ML IV SCH (17:33)
[2022-01-13] MEDS: fentaNYL 100 MCG/2 ML INJ IV PRN (21:35)
[2022-01-14] MEDS: INSULIN LISPRO 100 UNIT/ML SUB-Q SCH ×4 (00:02→18:22)
[2022-01-14 04:16] LABS: Hematocrit 36.4 % (35.5-45.6); Hemoglobin 11.7 gm/dl (11.8-15.2); Mean Corpuscular HGB Conc 32 % (32-34); Mean Corpuscular Volume 84 fl (84-94); Platelet Count 147 K/mm3 (140-440); Red Blood Count 4.34 M/mm3 (3.65-5.03); Red Cell Distribution Width 19.8 % (13.2-15.2)
[2022-01-14 04:21] LABS: INR 4.55 (0.87-1.13)
[2022-01-14 04:34] LABS: ABG Base Excess -2.2 mmol/L (-2.0-3.0); ABG HCO3 22.2 mmol/L (20.0-26.0); ABG Methemoglobin 0.9 % (0.0-1.5); ABG Oxygen Saturation 77.6 % (95.0-99.0); ABG PH 7.397 pH Units (7.350-7.450); ABG PO2 45.7 mm Hg (80.0-90.0)
[2022-01-14 04:36] LABS: Calcium 8.1 mg/dL (8.4-10.2)
--- NOTE | 2022-01-14 07:04 | XRay Report ---
XR chest 1V ap INDICATION / CLINICAL INFORMATION: follow up respiratory failure. COMPARISON: Radiograph from yesterday. FINDINGS: SUPPORT DEVICES: Unchanged. HEART /PULMONARY VASCULATURE: Stable cardiomegaly. LUNGS / PLEURA: Further improvement in interstitial edema. Lungs are essentially clear. No sizable pl eural effusion. No pneumothorax. IMPRESSION: Improved pulmonary edema. Stable support device positioning. Signer Name: Capo Baker MD Signed: 01/14/2022 7:00 AM Workstation Name: [id number]
[2022-01-14] MEDS: SODIUM BICARBONATE 650 MG TAB PO SCH ×3 (08:22→21:28)
[2022-01-14] MEDS: FAMOTIDINE 10 MG TAB FEEDTUBE SCH ×2 (09:37→21:28)
[2022-01-14] MEDS: SENNOSIDES/DOCUSATE SODIUM 8.6/50 MG TAB FEEDTUBE SCH ×2 (09:37→21:28)
[2022-01-14] MEDS: THIAMINE 100 MG TAB FEEDTUBE SCH (09:37)
--- NOTE | 2022-01-14 10:29 | Progress Note ---
<TATUM MIRELES - Last Filed: 01/14/22 15:59> Assessment and Plan Assessment and plan: This is a 56-year-old AA male with known past medical history of AZ, aortic regurgitation, non-obstructive CAD, HFrEF, s/p AICD, diabetes, hyperlipidemia, and hypertension admitted for AICD discharge. Decompensated in the ED s/p emerge nt intubation now on ventilatory support, in fulminant pulmonary edema. Hospital Course to Date: 01/11: S/p emergent intubation by the ED physician due to increase WOB, tachypnea, and lethagy. Clovis frothy sputum noted in ETT, fulminant pulmonary edema. Additional 40mg Iv lasix administered. Patient is Currently on high vent setting, 100% Fio2 and 16 of Peep. SPO2 remains labile, repeat ABG pending. CCM on consult for vent management. ST with BBB noted on the monitor, on amiodarone gtt for VTach per Cardio, VSS, echo pending. Monitor electrolytes and replete as needed. 01/12: Stable on the vent this am. This am ABG and Cxr noted. Now on pressors for hypotension, remains on amiodarone gtt. Accelerated junctional rhythm noted on the monitor this am, Dobutamine gtt held. 2D Echo pending. With worsen renal function this am, now oliguric, only 200cc in last 24hrs. IV lasix held, Nephrology consulted. Patient remains coagulopathic, per records patient was on Coumadin at home. INR 3.09 this am, Hold AC for now. 01/12: Remains stable on the vent, down to 50% Fio2 and 8 of peep this am. Plan for SAT trial this am to assess mentation, plan for possible PSV trial in the am. Patient is off pressors this am, remains on Amio gtt. Remains in a junctional rhythm with frequent ectopy. Enteral nutrition initiated. Remains oliguric with worsening renal function, awaiting Nephrology final recs. 01/13: Following commands this am, continue vent wean for PSV trial later on today or tomorrow. Remains on Amio gtt, back on dobutamine gtt per Cardio, EF 10- to 15%. Patient remains afebrile and off pressors, VSS, cultures with NGTD. IV Abx D/C for now. With worsen renal function this am, but making urine this am. Awaiting Nephro recs. Continue to monitor PT/INR and for s/s of any active bleeding. Continue to hold AC for now Assessment and Plan #Acute Hypoxic Respiratory Failure #Fulminant Pulmonary Edema-improved #Possible CAP - Emergently intubated in the ED on 01/11 due to increase WOB, tachypnea, and lethagy - Clovis frothy sputum noted in ETT - CXR noted, suggesting pulmonary edema but can't exclude infectious Etiology - Vent setting:PRVC-40%,6,28,400 - This am ABG noted - Repeat CXR with resolution of the bilateral pulmonary edema or infiltrates - CCM consulted, appreciate recommendations - Continue to wean vent per CCM - VAP bundle addressed - Aspiration precaution HOB above 30 - Daily SBT and SAT trials as tolerated - Daily ABG and CXR - Continue SPO2 monitoring for SPO2 goal above 92% #Ventricular Tachycardia #Implantable Cardioverter-Defibrillator (ICD) discharge #CAD (Coronary Artery Disease) #Congestive Heart Failure with Reduce EF #Elevated troponin #HTN (Hypertension) - Presented with Chest pain - Went into in V.TACH in the ED, AICD discharged - Amiodarone bolus and drip was initiated per protocol - Troponin are elevated X2, probably due to demand ischemia - [address] with RBBB - callisthenics instructor Physics Technician contacted in the ED, no evidence of ischemia noted at that time - 01/12 Echo reveals Left ventricle is severely dilated. Left ventricular systolic function is severely decreased. There is severe global hypokinesis of the left ventricle. LVEF is 10-15%. The left ventricular diastolic function is indeterminate. - Back on dobutamine gtt per Cardio - Currently in Accelerated junctional rhythm with frequent ectopy - Lasix held due to worsen renal function - Resume home medications - Cardiology on consult, appreciated recommendations - Continue blood pressure monitor per protocol - Maintain MAP above 65 - AC on hold due to supratherapeutic INR, patient was on coumadin at home #Acute Kidney Injury(MARCIO) #Hypokalemia-improved - mild increased in scr. this am, most likely prerenal - Now oliguric with worsen renal function - IV lasix held - Nephrology consulted - Continue to trend BMP - Strict intake and output - Avoid nephrotoxic medications - Monitor and replace electrolytes as needed #Possible CAP - Presented with high fevers TMAX 101.1 - CXR noted, suggesting pulmonary edema but can't exclude infectious Etiology - COVID PCR negative - Blood cultures, UA, and sputum culture with NGTD - Empiric IV Abx held - F/u on cultures - Daily CBC monitor - Consider ID consult if febrile and if leukocytosis occur #Supratherapeutic INR - Patient was on coumadin at home due to recurrent CVA - INR 4.55 - No s/s of any active bleeding, no reversal warranted at this time - Continue to hold AC for now - Continue to trend PT/INR, resume home coumadin once INR less than 2 #Type 2 Diabetes Mellitus - BG check and SSI Q6hrs - Avoid hypoglycemia - While critically ill target blood glucose of 140-180 #GI/DVT Prophylaxis - PPI- Pepcid - SCDs to bilateral lower extremities while in bed #Advance Care Planning - Disease education data, care plan, diagnoses, and prognosis were discussed with patient's at the bedside. Patient is a FULL code. Patient's acknowledged understanding and agreement with current care plan. The high probability of a clinically significant, sudden or life threatening deterioration of the [multiple] system(s) required my full and direct attention, intervention and personal management. The aggregate critical care time was [60] minutes. This time is in addition to time spent performing reported procedures but includes the following: [x] Data Review and interpretation [x] Patient assessment and monitoring of vital signs [x] Documentation [x] Medication orders and management Disposition Plan: ICU Total Time Spent with Patient (Minutes): 60 History Interval history: Patient seen and examined in the bedside. Stable on the vent, on low dose propofol gtt. Following commands, moving all extremities. Remains on Amiodarone gtt but back on dobutamine gtt per Cardio. UOP picked up this am, 400ml so far this morning. JEREMY overnight Hospitalist Physical - Constitutional Vitals: Temp Pulse Resp BP Pulse Ox 98.3 F 74 27 H 127/76 94 01/14/22 08:00 01/14/22 09:01 01/14/22 09:01 01/14/22 09:01 01/14/22 09:01 General appearance: Present: no acute distress, obese, other (Intubated. On low dose sedation, following commands) - EENT Eyes: Present: PERRL ENT: hearing intact - Neck Neck: Present: normal ROM - Respiratory Respiratory effort: normal Respiratory: bilateral: rhonchi - Cardiovascular Rhythm: irregularly irregular Heart Sounds: Present: S1 & S2 - Extremities Extremities: no ischemia, pulses intact, pulses symmetrical Extremity abnormal: edema - Peripheral Assessment Generalized Edema Type: Non-pitting Edema Degree: 1+ Capillary Refill: < 3 seconds Skin Temperature: Warm Peripheral Pulses: within normal limits - Abdominal General gastrointestinal: soft, non-distended, normal bowel sounds - Integumentary Integumentary: Present: warm, dry - Psychiatric Psychiatric: cooperative, other (Intubated. On low dose sedation, following commands) - Neurologic Neurologic: moves all extremities, other (Intubated. On low dose sedation, following commands) - Allied Health Allied health notes reviewed: nursing, case management HEART Score - HEART Score EKG: Non-specific Age: 45-65 Risk factors: > 3 risk factors or hx of atherosclerotic disease Troponin: Troponin T 0.075 ng/mL (0.00-0.029) H D 01/11/22 04:20 Troponin: 1-3x normal limit - Critical Actions Critical Actions: 4-6 pts:12-16.6% risk of adverse cardiac event. Should be admitted Results - Labs CBC & Chem 7: 01/14/22 04:00 01/14/22 04:00 Labs: Laboratory Last Values WBC 11.5 K/mm3 (4.5-11.0) H 01/14/22 04:00 RBC 4.34 M/mm3 (3.65-5.03) 01/14/22 04:00 Hgb 11.7 gm/dl (11.8-15.2) L 01/14/22 04:00 Hct 36.4 % (35.5-45.6) 01/14/22 04:00 MCV 84 fl (84-94) 01/14/22 04:00 MCH 27 pg (28-32) L 01/14/22 04:00 MCHC 32 % (32-34) 01/14/22 04:00 RDW 19.8 % (13.2-15.2) H 01/14/22 04:00 Plt Count 147 K/mm3 (140-440) 01/14/22 04:00 Lymph % (Auto) 5.0 % (13.4-35.0) L 01/13/22 08:28 Wetzel % (Auto) 6.5 % (0.0-7.3) 01/13/22 08:28 Eos % (Auto) 0.1 % (0.0-4.3) 01/13/22 08:28 Baso % (Auto) 0.2 % (0.0-1.8) 01/13/22 08:28 Lymph # (Auto) 0.6 K/mm3 (1.2-5.4) L 01/13/22 08:28 Wetzel # (Auto) 0.8 K/mm3 (0.0-0.8) 01/13/22 08:28 Eos # (Auto) 0.0 K/mm3 (0.0-0.4) 01/13/22 08:28 Baso # (Auto) 0.0 K/mm3 (0.0-0.1) 01/13/22 08:28 Seg Neutrophils % 88.2 % (40.0-70.0) H 01/13/22 08: Seg Neutrophils # 10.6 K/mm3 (1.8-7.7) H 01/13/22 08:28 PT 49.5 Sec. (12.2-14.9) H 01/14/22 Unknown INR 4.55 (0.87-1.13) H 01/14/22 Unknown APTT 38.8 Sec. (24.2-36.6) H 01/10/22 21:47 ABG pH 7.397 pH Units (7.350-7.450) 01/14/22 04:20 ABG pCO2 37.0 mm Hg 01/14/22 04:20 ABG pO2 45.7 mm Hg (80.0-90.0) L 01/14/22 04:20 ABG HCO3 22.2 mmol/L (20.0-26.0) 01/14/22 04:20 ABG O2 Saturation 77.6 % (95.0-99.0) L 01/14/22 04:20 ABG O2 Content 13.0 (0.0-44) 01/14/22 04:20 ABG Base Excess -2.2 mmol/L (-2.0-3.0) L 01/14/22 04:20 ABG Hemoglobin 12.2 gm/dl (14.0-18.0) L 01/14/22 04:20 ABG Carboxyhemoglobin 1.4 % (0.0-5.0) 01/14/22 04:20 ABG Methemoglobin 0.9 % (0.0-1.5) 01/14/22 04:20 Oxyhemoglobin 75.8 % (95.0-99.0) L 01/14/22 04:20 FiO2 40 % 01/14/22 04:20 Sodium 141 mmol/L (137-145) 01/14/22 04:00 Potassium 3.5 mmol/L (3.6-5.0) L D 01/14/22 04:00 Chloride 104.3 mmol/L (98-107) 01/14/22 04:00 Carbon Dioxide 21 mmol/L (22-30) L 01/14/22 04:00 Anion Gap 19 mmol/L 01/14/22 04:00 BUN 81 mg/dL (9-20) H 01/14/22 04:00 Creatinine 5.2 mg/dL (0.8-1.3) H 01/14/22 04:00 Estimated GFR 14 ml/min 01/14/22 04:00 BUN/Creatinine Ratio 16 % 01/14/22 04:00 Glucose 133 mg/dL (75-100) H 01/14/22 04:00 POC Glucose 117 mg/dL (70-105) H 01/14/22 05:46 Lactic Acid 4.00 mmol/L (0.7-2.0) H* 01/12/22 15:23 Calcium 8.1 mg/dL (8.4-10.2) L 01/14/22 04:00 Phosphorus 1.70 mg/dL (2.5-4.5) L 01/11/22 19:41 Magnesium 4.80 mg/dL (1.7-2.3) H 01/11/22 19:41 Total Bilirubin 1.00 mg/dL (0.1-1.2) 01/12/22 08:57 AST 73 units/L (5-40) H 01/12/22 08:57 ALT 79 units/L (7-56) H 01/12/22 08:57 Alkaline Phosphatase 50 units/L (35-129) 01/12/22 08:57 Total Creatine Kinase 202 units/L (55-170) H 01/12/22 15:23 Troponin T 0.075 ng/mL (0.00-0.029) H D 01/11/22 04:20 C-Reactive Protein 13.20 mg/dL (0.00-1.30) H 01/12/22 05:10 Total Protein 6.2 g/dL (6.3-8.2) L 01/12/22 08:57 Albumin 3.3 g/dL (3.9-5) L 01/12/22 08:57 Albumin/Globulin Ratio 1.1 % 01/12/22 08:57 Triglycerides 94 mg/dL (2-149) 01/10/22 21:47 Cholesterol 113 mg/dL (50-199) 01/10/22 21:47 LDL Cholesterol Direct 72 mg/dL (50-130) 01/10/22 21:47 HDL Cholesterol 35 mg/dL (40-59) L 01/10/22 21:47 Cholesterol/HDL Ratio 3.22 % 01/10/22 21:47 Procalcitonin 42.50 ng/mL (<0.15) 01/12/22 05:10 Urine Color Yellow (Yellow) 01/12/22 16:51 Urine Turbidity Cloudy (Clear) 01/12/22 16:51 Urine pH 5.0 (5.0-7.0) 01/12/22 16:51 Ur Specific [place] 1.030 (1.003-1.030) 01/12/22 16:51 Urine Protein 30 mg/dl mg/dL (Negative) 01/12/22 16:51 Urine Glucose (UA) Negative mg/dL (Negative) 01/12/22 16:51 Urine Ketones Negative mg/dL (Negative) 01/12/22 16:51 Urine Blood Large (Negative) A 01/12/22 16:51 Urine Nitrite Negative (Negative) 01/12/22 16:51 Ur Reducing Substances Not Reportable 01/12/22 16:51 Urine Bilirubin Negative (Negative) 01/12/22 16:51 Urine Ictotest Not Reportable 01/12/22 16:51 Urine Urobilinogen 0.0 mg/dL (<2.0) 01/12/22 16:51 Ur Leukocyte Esterase Trace (Negative) 01/12/22 16:51 Urine WBC (Auto) 85.0 /HPF (0.0-6.0) H 01/12/22 16:51 Urine RBC (Auto) > 182.0 /HPF (0.0-6.0) 01/12/22 16:51 U Epithel Cells (Auto) 1.0 /HPF (0-13.0) 01/12/22 16:51 Urine WBC Clumps 1+ /HPF 01/12/22 16:51 Hyaline Casts 21 /LPF 01/12/22 16:51 Urine Mucus Few /HPF 01/12/22 16:51 Urine Yeast (Budding) Few /HPF 01/12/22 16:51 Urine Creatinine 224.3 mg/dL (0.1-20.0) H 01/12/22 16:51 Protein/Creatinin Ratio 0.47 01/12/22 16:51 Urine Total Protein 105 mg/dL (5-11.8) H 01/12/22 16:51 Coronavirus (PCR) Negative (Negative) 01/11/22 15:45 Blood Type B POSITIVE 01/10/22 21:47 Antibody Screen Negative 01/10/22 21:47 Microbiology: Microbiology 01/11/22 19:41 Peripheral/Venous Blood Culture - Preliminary NO GROWTH AFTER 48 HOURS 01/11/22 19:41 Peripheral/Venous Blood Culture - Preliminary NO GROWTH AFTER 48 HOURS 01/11/22 23:57 Tracheal Aspirate Sputum Culture - Preliminary 01/12/22 09:02 Urine,Catheterized - Indwelling Catheter Urine Culture - Preliminary NO GROWTH AFTER 24 HOURS Bustamante/IV: Voiding Method Indwelling Catheter Active Medications - Current Medications Current Medications: Generic Name Dose Route Start Last Admin Trade Name Freq PRN Reason Stop Dose Admin Acetaminophen 650 mg 01/10/22 23:49 Acetaminophen 325 Mg Tab PO Q6H PRN Pain MILD(1-3)/Fever >100.5/NÚÑEZ Albuterol 2.5 mg 01/11/22 00:19 Albuterol 2.5 Mg/3 Ml Nebu IH Q4HRT PRN Shortness Of Breath Atorvastatin Calcium 80 mg 01/11/22 22:00 01/13/22 21:36 Atorvastatin 40 Mg Tab FEEDTUBE 80 mg QHS SHAKEEL Administration Dextrose 50 ml 01/10/22 23:49 Dextrose 50% In Water (25gm) 50 Ml Syringe IV Q30MIN PRN Hypoglycemia Protocol Famotidine 10 mg 01/13/22 11:00 01/14/22 09:37 Famotidine 10 Mg Tab FEEDTUBE 10 mg BID SHAKEEL Administration Fentanyl 50 mcg 01/11/22 09:28 01/13/22 21:35 Fentanyl 100 Mcg/2 Ml Inj IV 50 mcg Q10MIN PRN Administration ANALGESIA Hydrophilic Ointment 1 applic 01/12/22 09:02 Lip Therapy Vaseline TP Q2HR PRN Dry Lips Propofol 1,000 mg in 100 mls @ 3.538 mls/hr 01/11/22 10:00 01/13/22 15:24 Diprivan 10 Mg/Ml IV 5 mcg/kg/min TITR SHAKEEL 3.538 mls/hr Administration Protocol 5 MCG/KG/MIN Fentanyl Citrate 2,000 mcg in 100 mls @ 5.897 mls/hr 01/11/22 10:00 Fentanyl Drip Premix IV TITR SHAKEEL Protocol 1 MCG/KG/HR Vasopressin 20 unit/ Sodium 101 mls @ 9.09 mls/hr 01/11/22 14:00 01/12/22 16:04 Chloride IV 0 units/min TITR SHAKEEL 0 mls/hr Titration Protocol 0.03 UNITS/MIN NORepinephrine/NS 8 MG-250 ML 8 mg in 250 mls @ 3.75 mls/hr 01/11/22 14:00 01/12/22 17:22 Norepinephrine/Ns 8 Mg-250 Ml (Double Conc) IV 0 mcg/min TITRATE SHAKEEL 0 mls/hr Titration Protocol 2 MCG/MIN Amiodarone HCl 900 mg/ 500 mls @ 33.333 mls/hr 01/12/22 15:00 01/13/22 17:33 Dextrose IV 0.5 mg/min DIRECT SHAKEEL 16.667 mls/hr Administration Protocol 1 MG/MIN Dobutamine HCl/Dextrose 500 mg in 250 mls @ 8.845 mls/hr 01/13/22 12:00 01/13/22 12:39 Dobutrex Drip 500mg/D5w 250ml IV 2.5 mcg/kg/min DIRECT SHAKEEL 8.845 mls/hr Administration Protocol 2.5 MCG/KG/MIN Insulin Human Lispro 0 unit 01/11/22 12:00 01/14/22 06:24 Insulin Lispro 100 Unit/Ml SUB-Q Not Given Q6HR SHAKEEL Protocol Magnesium Hydroxide 30 ml 01/10/22 23:49 Magnesium Hydroxide (Mom) Oral Liqd Udc PO Q4H PRN Constipation Multi-Ingred Cream/Lotion/Oil/Oint 1 applic 01/12/22 09:02 Mineral Oil/Petrolatum, White Ophth Oint 3.5 Gm OU Q4HR PRN Dry Eye(s) Ondansetron HCl 4 mg 01/10/22 23:49 Ondansetron 4 Mg/2 Ml Inj IV Q8H PRN Nausea And Vomiting Senna/Docusate Sodium 1 tab 01/12/22 10:00 01/14/22 09:37 Sennosides/Docusate Sodium 8.6/50 Mg Tab FEEDTUBE 1 tab BID SHAKEEL Administration Sodium Bicarbonate 1,300 mg 01/13/22 14:00 01/14/22 08:22 Sodium Bicarbonate 650 Mg Tab PO 1,300 mg TID SHAKEEL Administration Sodium Chloride 10 ml 01/11/22 10:00 01/14/22 09:37 Sodium Chloride 0.9% 10 Ml Flush Syringe IV 10 ml BID SHAKEEL Administration Sodium Chloride 10 ml 01/10/22 23:49 Sodium Chloride 0.9% 10 Ml Flush Syringe IV PRN PRN LINE FLUSH Thiamine HCl 100 mg 01/13/22 10:00 01/14/22 09:37 Thiamine 100 Mg Tab FEEDTUBE 100 mg QDAY SHAKEEL Administration Nutrition/Malnutrition Assess - Dietary Evaluation Nutrition/Malnutrition Findings: Nutrition Notes Start: 01/11/22 12:57 Freq: Status: Active Protocol: Document 01/12/22 14:29 PB (Rec: 01/12/22 15:04 PB [id number]) Nutrition Notes Need for 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 .. Current Diet NPO (since 01/11 10:39), TF- Vital AF 1.2 Rey @ 60 ml/hr ( from D 01/12). Labs/Tests 01/12: CO2 21, BUN 42, Crea 3. 3, Glu 178. Pertinent Medications 01/12: Propofol @ 7.076 (187 Kcal), others nutritionally unremarkable. Height 5 ft 9 in Weight 117.934 kg [place] Body Weight (kg) 72.72 BMI 38.4 Intake Prior to Admission Good Weight change and time frame No body weight change reported in 1 day. 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 Weight Status Obese Subjective/Other Information RD consult for skin risk assessment and write/manage TF . Pt currently on NPO. I will prescribe TF to provide Pt with energy/protein needs during LOS. Pt is on Mechanical Ventilation, O2 saturation @ 99%, according to Physical Assessment History notes. Pt shows no signs of concern for skin risk at the time, according to Physical Assessment History notes. Pt has been on Coumadin since 11/2020, according to Progress notes. Percent of energy/protein needs met: Pt currently on NPO. Prescribed TF-Vital AF 1.2 Rey @ 60 ml/hr provides for energy/protein needs (1,740 Kcal/109 g) during LOS, 87% Kcal; 100% AA. Including 187 Kcal from Propofol, 100% Kcal; 100% AA. Burn Absent Trauma Absent GI Symptoms None Food Allergy No Skin Integrity/Comment Assessment WNL. Current % PO Other Minimum of two criteria No Fluid Accumulation N/A Reduced Space Systems Operations Craftsman Strength N/A (non-severe) Protein-Calorie Malnutrition N\A #1 Nutrition Diagnosis Inadequate oral intake Etiology Pt is on Mechanical Ventilation. As Evidenced by Signs and Symptoms Py is currently on NPO. Is patient on ventilator? Yes Is Patient Ambulatory and/or Out of Bed No REE-([facility]-confined to bed) [phone] Kcal/Kg value to use for calculation 17 Approximate Energy Requirements Using 2005 kcal/Kg Calculation Used for Recommendations Kcal/kg Additional Notes Protein: 0.8-1.2 g/Kg AdjBW; 77-115 g/day. Fluids: 1 ml/Kcal, or as per MD. Nutrition Intervention Nutrition Support: Start TF-Vital AF 1.2 Rey @ 60 ml/hr. Flush: 140 ml water Q 4 hr, or as per MD. Kcal 1,740 Protein (gm) 109 Carbohydrates (gm) 160 Fat (gm) 78 Fluid (mL) 1,176 Fiber (gm) 7 % RDI: 87% Kcal; 100% AA. Goal #1 Provide at least 75% of energy /protein needs through Enteral Feeding during LOS. Follow-Up By: 01/14/22 Additional Comments Start monitoring TF tolerance and BM. <NESTOR CLEMENS - Last Filed: 01/18/22 07:23> Assessment and Plan Assessment and plan: I saw and evaluated the patient. I agree with the findings and the plan of care as documented in the Nurse Practitioner's~note, with the following corrections and additions. Hospitalist Physical - Constitutional Vitals: Temp Pulse Resp BP Pulse Ox 97.9 F 79 12 138/81 92 01/18/22 07:18 01/18/22 06:01 01/18/22 06:01 01/18/22 06:01 01/18/22 06:01 HEART Score - HEART Score Troponin: Troponin T 0.075 ng/mL (0.00-0.029) H D 01/11/22 04:20 Results - Labs CBC & Chem 7: 01/17/22 05:20 01/17/22 04:00 Labs: Laboratory Last Values WBC 7.3 K/mm3 (4.5-11.0) 01/17/22 05:20 RBC 4.24 M/mm3 (3.65-5.03) 01/17/22 05:20 Hgb 11.4 gm/dl (11.8-15.2) L 01/17/22 05:20 Hct 36.6 % (35.5-45.6) 01/17/22 05:20 MCV 86 fl (84-94) 01/17/22 05:20 MCH 27 pg (28-32) L 01/17/22 05:20 MCHC 31 % (32-34) L 01/17/22 05:20 RDW 19.1 % (13.2-15.2) H 01/17/22 05:20 Plt Count 191 K/mm3 (140-440) 01/17/22 05:20 Lymph % (Auto) 5.0 % (13.4-35.0) L 01/13/22 08:28 Wetzel % (Auto) 6.5 % (0.0-7.3) 01/13/22 08:28 Eos % (Auto) 0.1 % (0.0-4.3) 01/13/22 08:28 Baso % (Auto) 0.2 % (0.0-1.8) 01/13/22 08:28 Lymph # (Auto) 0.6 K/mm3 (1.2-5.4) L 01/13/22 08:28 Wetzel # (Auto) 0.8 K/mm3 (0.0-0.8) 01/13/22 08:28 Eos # (Auto) 0.0 K/mm3 (0.0-0.4) 01/13/22 08:28 Baso # (Auto) 0.0 K/mm3 (0.0-0.1) 01/13/22 08:28 Seg Neutrophils % 88.2 % (40.0-70.0) H 01/13/22 08:28 Seg Neutrophils # 10.6 K/mm3 (1.8-7.7) H 01/13/22 08:28 PT 17.5 Sec. (12.2-14.9) H 01/17/22 05:20 INR 1.28 (0.87-1.13) H 01/17/22 05:20 APTT 38.8 Sec. (24.2-36.6) H 01/10/22 21:47 ABG pH 7.432 pH Units (7.350-7.450) 01/15/22 04:15 ABG pCO2 34.4 mm Hg 01/15/22 04:15 ABG pO2 101.6 mm Hg (80.0-90.0) H 01/15/22 04:15 ABG HCO3 22.4 mmol/L (20.0-26.0) 01/15/22 04:15 ABG O2 Saturation 97.8 % (95.0-99.0) 01/15/22 04:15 ABG O2 Content 15.2 (0.0-44) 01/15/22 04:15 ABG Base Excess -1.4 mmol/L (-2.0-3.0) 01/15/22 04:15 ABG Hemoglobin 11.2 gm/dl (14.0-18.0) L 01/15/22 04:15 ABG Carboxyhemoglobin 1.5 % (0.0-5.0) 01/15/22 04:15 ABG Methemoglobin 0.6 % (0.0-1.5) 01/15/22 04:15 Oxyhemoglobin 95.8 % (95.0-99.0) 01/15/22 04:15 FiO2 35 % 01/15/22 04:15 Sodium 145 mmol/L (137-145) 01/17/22 04:00 Potassium 3.5 mmol/L (3.6-5.0) L 01/17/22 04:00 Chloride 106.6 mmol/L (98-107) 01/17/22 04:00 Carbon Dioxide 28 mmol/L (22-30) 01/17/22 04:00 Anion Gap 14 mmol/L 01/17/22 04:00 BUN 55 mg/dL (9-20) H 01/17/22 04:00 Creatinine 2.6 mg/dL (0.8-1.3) H 01/17/22 04:00 Estimated GFR 31 ml/min 01/17/22 04:00 BUN/Creatinine Ratio 21 % 01/17/22 04:00 Glucose 94 mg/dL (75-100) 01/17/22 04:00 POC Glucose 100 mg/dL (70-105) 01/17/22 21:06 Lactic Acid 4.00 mmol/L (0.7-2.0) H* 01/12/22 15:23 Calcium 8.6 mg/dL (8.4-10.2) 01/17/22 04:00 Phosphorus 3.10 mg/dL (2.5-4.5) 01/17/22 04:00 Magnesium 2.20 mg/dL (1.7-2.3) 01/17/22 04:00 Total Bilirubin 1.00 mg/dL (0.1-1.2) 01/17/22 04:00 AST 106 units/L (5-40) H 01/17/22 04:00 ALT 262 units/L (7-56) H 01/17/22 04:00 Alkaline Phosphatase 68 units/L (35-129) 01/17/22 04:00 Total Creatine Kinase 202 units/L (55-170) H 01/12/22 15:23 Troponin T 0.075 ng/mL (0.00-0.029) H D 01/11/22 04:20 C-Reactive Protein 13.20 mg/dL (0.00-1.30) H 01/12/22 05:10 Total Protein 6.5 g/dL (6.3-8.2) 01/17/22 04:00 Albumin 3.4 g/dL (3.9-5) L 01/17/22 04:00 Albumin/Globulin Ratio 1.1 % 01/17/22 04:00 Triglycerides 92 mg/dL (2-149) 01/15/22 04:45 Cholesterol 113 mg/dL (50-199) 01/10/22 21:47 LDL Cholesterol Direct 72 mg/dL (50-130) 01/10/22 21:47 HDL Cholesterol 35 mg/dL (40-59) L 01/10/22 21:47 Cholesterol/HDL Ratio 3.22 % 01/10/22 21:47 Procalcitonin 42.50 ng/mL (<0.15) 01/12/22 05:10 Urine Color Yellow (Yellow) 01/12/22 16:51 Urine Turbidity Cloudy (Clear) 01/12/22 16:51 Urine pH 5.0 (5.0-7.0) 01/12/22 16:51 Ur Specific [place] 1.030 (1.003-1.030) 01/12/22 16:51 Urine Protein 30 mg/dl mg/dL (Negative) 01/12/22 16:51 Urine Glucose (UA) Negative mg/dL (Negative) 01/12/22 16:51 Urine Ketones Negative mg/dL (Negative) 01/12/22 16:51 Urine Blood Large (Negative) A 01/12/22 16:51 Urine Nitrite Negative (Negative) 01/12/22 16:51 Ur Reducing Substances Not Reportable 01/12/22 16:51 Urine Bilirubin Negative (Negative) 01/12/22 16:51 Urine Ictotest Not Reportable 01/12/22 16:51 Urine Urobilinogen 0.0 mg/dL (<2.0) 01/12/22 16:51 Ur Leukocyte Esterase Trace (Negative) 01/12/22 16:51 Urine WBC (Auto) 85.0 /HPF (0.0-6.0) H 01/12/22 16:51 Urine RBC (Auto) > 182.0 /HPF (0.0-6.0) 01/12/22 16:51 U Epithel Cells (Auto) 1.0 /HPF (0-13.0) 01/12/22 16:51 Urine WBC Clumps 1+ /HPF 01/12/22 16:51 Hyaline Casts 21 /LPF 01/12/22 16:51 Urine Mucus Few /HPF 01/12/22 16:51 Urine Yeast (Budding) Few /HPF 01/12/22 16:51 Urine Creatinine 224.3 mg/dL (0.1-20.0) H 01/12/22 16:51 Protein/Creatinin Ratio 0.47 01/12/22 16:51 Urine Total Protein 105 mg/dL (5-11.8) H 01/12/22 16:51 Coronavirus (PCR) Negative (Negative) 01/11/22 15:45 Hepatitis A IgM Ab Non-reactive (NonReactive) 01/15/22 04:45 Hep Bs Antigen Non-reactive (Negative) 01/15/22 04:45 Hep B Core IgM Ab Non-reactive (NonReactive) 01/15/22 04:45 Hepatitis C Antibody Non-reactive (NonReactive) 01/15/22 04:45 Blood Type B POSITIVE 01/10/22 21:47 Antibody Screen Negative 01/10/22 21:47 [place]/IV: Voiding Method Urinal Active Medications - Current Medications Current Medications: Generic Name Dose Route Start Last Admin Trade Name Freq PRN Reason Stop Dose Admin Acetaminophen 650 mg 01/10/22 23:49 Acetaminophen 325 Mg Tab PO Q6H PRN Pain MILD(1-3)/Fever >100.5/NÚÑEZ Amiodarone HCl 200 mg 01/15/22 22:00 01/17/22 21:35 Amiodarone 200 Mg Tab PO 200 mg BID SHAKEEL Administration Dextrose 50 ml 01/10/22 23:49 Dextrose 50% In Water (25gm) 50 Ml Syringe IV Q30MIN PRN Hypoglycemia Protocol Docusate Sodium 100 mg 01/17/22 22:00 01/17/22 21:36 Docusate Sodium 100 Mg Cap PO 100 mg BID SHAKEEL Administration Famotidine 10 mg 01/17/22 22:00 01/17/22 21:35 Famotidine 10 Mg Tab PO 10 mg BID SHAKEEL Administration Hydrophilic Ointment 1 applic 01/12/22 09:02 Lip Therapy Vaseline TP Q2HR PRN Dry Lips Insulin Human Lispro 0 unit 01/16/22 22:00 01/17/22 21:36 Insulin Lispro 100 Unit/Ml SUB-Q Not Given ACHS SHAKEEL Protocol Magnesium Hydroxide 30 ml 01/10/22 23:49 Magnesium Hydroxide (Mom) Oral Liqd Udc PO Q4H PRN Constipation Ondansetron HCl 4 mg 01/10/22 23:49 01/15/22 21:41 Ondansetron 4 Mg/2 Ml Inj IV 4 mg Q8H PRN Administration Nausea And Vomiting Sodium Bicarbonate 1,300 mg 01/13/22 14:00 01/17/22 21:35 Sodium Bicarbonate 650 Mg Tab PO 1,300 mg TID SHAKEEL Administration Sodium Chloride 10 ml 01/11/22 10:00 01/17/22 22:00 Sodium Chloride 0.9% 10 Ml Flush Syringe IV 10 ml BID SHAKEEL Administration Sodium Chloride 10 ml 01/10/22 23:49 Sodium Chloride 0.9% 10 Ml Flush Syringe IV PRN PRN LINE FLUSH Thiamine HCl 100 mg 01/18/22 10:00 Thiamine 100 Mg Tab PO QDAY SHAKEEL Warfarin Sodium 2.5 mg 01/17/22 17:00 01/17/22 16:52 Warfarin 2.5 Mg Tab PO 01/18/22 16:59 2.5 mg DAILY@1700 NR Administration Nutrition/Malnutrition Assess - Dietary Evaluation Nutrition/Malnutrition Findings: Nutrition Notes Start: 01/11/22 12:57 Freq: Status: Active Protocol: Document 01/17/22 18:27 AIMEE (Rec: 01/17/22 18:30 AIMEE [id number]) Nutrition Notes Initial or Follow up Reassessment Current Diagnosis Acute Kidney Injury,Coronary Artery Disease,Diabetes, Hypertension,Respiratory Failure,Hyperlipidemia Other Pertinent Diagnosis s/p ICD Shock, HFrEF, Pulmonary Edema, [place] x2, NINFA, . .. Current Diet Renal Labs/Tests K 3.5 BUN 55 Cr 2.6 Pertinent Medications Thiamine, Coumadin Height 5 ft 9 in Weight 117.934 kg [place] Body Weight (kg) 72.72 BMI 38.4 Weight Status Obese Subjective/Other Information Pt extubated on 01/15. He is tolerating PO diet and reports good appetite. He has been taking coumadin for 8 months and is familiar with Vit K- rich foods; denies need for DNI education. Burn Absent Trauma Absent #1 Nutrition Diagnosis Inadequate oral intake As Evidenced by Signs and Symptoms pt on PO diet and reports good appetite Diagnosis Progress(for reassessment Resolved documentation) Is patient on ventilator? No Is Patient Ambulatory and/or Out of Bed Yes REE-(Stewart-St. Jeor-ambulatory/OOB) [ 2593.136 [id number]] Kcal/Kg value to use for calculation 17 Approximate Energy Requirements Using 2005 kcal/Kg Calculation Used for Recommendations Kcal/kg Additional Notes Pro needs 0.8-1.2g/kg adjBW: 76-114g/day Fluid needs 1ml/kcal Nutrition Intervention Change Diet Order: Continue current diet order Goal #1 PO intake to meet at least 75% energy and pro needs Follow-Up By: 01/24/22 Additional Comments F/U: intakes, wt
[2022-01-14] MEDS: fentaNYL 100 MCG/2 ML INJ IV PRN (11:11)
[2022-01-14] MEDS: DOBUTamine/D5W 500 MG/250 ML 500 MG/250 ML BAG IV SCH (12:21)
[2022-01-14 13:36] LABS: ABG Base Excess -2.1 mmol/L (-2.0-3.0); ABG HCO3 22.2 mmol/L (20.0-26.0); ABG Methemoglobin 0.6 % (0.0-1.5); ABG Oxygen Saturation 97.3 % (95.0-99.0); ABG PCO2 36.5 mm Hg; ABG PH 7.403 pH Units (7.350-7.450); ABG PO2 92.1 mm Hg (80.0-90.0)
--- NOTE | 2022-01-14 14:05 | Progress Note ---
Assessment and Plan This is a 56-year-old -[place]ag[place] male, who follows with Dr. KURTIS Ferrer, with past medical history of aortic regurgitation, non-obstructive CAD (via [facility] 2009) HFrEF, diabetes, hyperlipidemia, hypertension, s/p BI-V ICD ([facility]) Acute on chronic HFrEF Acute Pulmonary edema - copious pink, frothy sputum noted on intubation Acute Hypoxic Respiratory Failure-pulmonology following S/p ICD shock MARCIO-nephrology following Mildly elevated troponin- likely 2/2 to acutely decompensated HF/pulmonary edema/ICD shocks Hyperlipidemia Hypertension DM - mangement per primary team S/p Bi-V ICD ([facility] [facility]) H/o Stroke (OAC with Coumadin since 11/2020) H/o Prostate CA (2020) Home medications: Amlodipine 5 mg p.o. daily, atorvastatin 80 mg p.o. nightly, clonidine 0.1 mg transdermal patch q. 7 days, carvedilol 25 mg p.o. twice daily, hydralazine 50 mg p.o. 3 times daily, Imdur 30 mg p.o. every morning, Lasix 40 mg p.o. daily, metformin 500 mg p.o. twice daily, warfarin 5 mg tablet p.o. daily. Echocardiogram 03/2019: Mild to moderate concentric LV hypertrophy is observed. The LV size is moderate to severely dilated. RV global systolic function is mildly reduced. Mild aortic regurgitation. RV systolic pressure is calculated at 21 mmHg. Global LV systolic function is severely decreased. Estimated EF is 20 to 25%. Cath- 05/2010 at [facility]: Nonobstructive CAD Echo 01/11/2022-EF 10 to 15%. LV is severely dilated. Severe global hypokinesis of LV. Left ventricular diastolic function is indeterminate. Right ventricle is dilated. Right ventricle is hypokinetic. Left atrium is mildly dilated. Trace to mild aortic regurgitation. Mild mitral regurgitation. Mild tricuspid regurgitation. IVC is dilated. IVC collapses with less than 50% of inspiration Plan: Continue dobutamine drip Per staff patient urine output has improved but patient continues to have worsening renal function Will defer volume management to nephrology No FABY or ARB due to renal function Continue statin however, no asa due to allergy. Patient pressures are soft and on dobutamine. Will continue to hold beta-christopher at this time Continue Amiodorone gtt Strict I & O and DW. Other management per primary teams. Patient seen in conjunction with Dr. Connolly who agrees with the assessment and management of this patient. - Patient Problems (1) MARCIO (acute kidney injury) Current Visit: No Status: Acute (2) Non-ischemic cardiomyopathy Current Visit: No Status: Chronic (3) Acute pulmonary edema Current Visit: No Status: Acute (4) CAD (coronary artery disease) Current Visit: No Status: Chronic (5) Acute respiratory failure with hypoxemia Current Visit: No Status: Acute (6) Acute on chronic HFrEF (heart failure with reduced ejection fraction) Current Visit: No Status: Acute (7) Ischemic cardiomyopathy Current Visit: No Status: Chronic (8) Automatic implantable cardioverter-defibrillator in situ Current Visit: No Status: Chronic (9) HTN (hypertension) Current Visit: No Status: Chronic (10) Obesity Current Visit: No Status: Chronic (11) History of CVA (cerebrovascular accident) Current Visit: No Status: Chronic (12) Implantable cardioverter-defibrillator (ICD) discharge Current Visit: Yes Status: Acute (13) Ventricular tachycardia (paroxysmal) Current Visit: Yes Status: Acute Subjective Date of service: 01/14/22 Principal diagnosis: Acute respiratory failure, acute on chronic HFrEF, MARCIO Interval history: Patient remains intubated and sedated Paced 70s RBBB and PVCs Objective Vital Signs Temp Pulse Pulse Resp BP Pulse Ox 01/14/22 13:15 67 28 H 94/58 97 01/14/22 13:01 72 28 H 94/58 93 01/14/22 12:59 97.8 F 01/14/22 12:45 71 28 H 100/61 97 01/14/22 12:30 71 29 H 100/61 94 01/14/22 12:15 72 28 H 118/62 93 01/14/22 12:00 76 84 28 H 110/68 95 01/14/22 11:45 76 28 H 113/69 95 01/14/22 11:31 83 30 H 114/66 95 01/14/22 11:28 79 114/66 96 01/14/22 11:15 87 25 H 158/97 01/14/22 11:01 131 H 29 H 158/97 92 01/14/22 10:45 127 H 22 141/74 96 01/14/22 10:30 76 28 H 141/74 95 01/14/22 10:15 75 28 H 131/74 94 01/14/22 10:00 80 27 H 143/69 97 01/14/22 09:45 76 24 133/76 96 01/14/22 09:30 75 28 H 137/74 96 01/14/22 09:15 74 28 H 137/76 96 01/14/22 09:01 74 27 H 127/76 94 01/14/22 08:45 71 28 H 122/75 100 01/14/22 08:41 71 116/74 99 01/14/22 08:30 70 28 H 116/74 97 01/14/22 08:15 75 28 H 106/66 100 01/14/22 08:00 98.3 F 73 84 26 H 120/66 98 01/14/22 07:45 74 28 H 108/58 96 01/14/22 07:30 74 28 H 100/67 97 01/14/22 07:15 74 28 H 114/65 97 01/14/22 07:12 98.3 F 01/14/22 07:00 73 28 H 108/67 98 01/14/22 06:45 73 28 H 116/66 98 01/14/22 06:30 74 28 H 116/69 98 01/14/22 06:15 73 28 H 118/58 97 01/14/22 06:00 74 28 H 107/66 98 01/14/22 05:45 74 28 H 111/67 99 01/14/22 05:30 73 28 H 114/67 98 01/14/22 05:15 74 28 H 120/68 97 01/14/22 05:00 75 28 H 114/67 98 01/14/22 04:45 73 28 H 118/68 99 01/14/22 04:30 72 28 H 116/67 01/14/22 04:20 73 114/67 99 01/14/22 04:15 71 28 H 108/66 99 01/14/22 04:00 97.8 F 70 84 26 H 107/73 98 01/14/22 03:45 74 28 H 118/68 100 01/14/22 03:30 71 24 116/72 01/14/22 03:15 71 28 H 110/69 01/14/22 03:00 73 28 H 107/64 99 01/14/22 02:45 74 28 H 107/65 01/14/22 02:30 73 28 H 112/68 99 01/14/22 02:15 74 28 H 121/71 97 01/14/22 02:01 69 28 H 130/72 97 01/14/22 01:45 73 28 H 113/64 99 01/14/22 01:30 72 28 H 107/63 99 01/14/22 01:15 73 28 H 106/62 01/14/22 01:00 72 28 H 104/64 99 01/14/22 00:45 72 28 H 107/63 01/14/22 00:30 73 28 H 111/65 100 01/14/22 00:15 72 28 H 116/66 100 01/14/22 00:06 70 109/65 100 01/14/22 00:00 73 84 28 H 109/65 99 01/13/22 23:53 97.3 F L 01/13/22 23:45 73 28 H 111/68 100 01/13/22 23:30 71 28 H 118/72 100 01/13/22 23:15 71 28 H 105/63 99 01/13/22 23:00 72 28 H 113/66 100 01/13/22 22:45 70 28 H 110/68 01/13/22 22:30 71 28 H 113/67 100 01/13/22 22:15 72 28 H 112/63 100 01/13/22 22:00 73 28 H 109/66 99 01/13/22 21:45 74 28 H 109/65 97 01/13/22 21:30 72 13 123/71 99 01/13/22 21:15 69 13 127/72 100 01/13/22 21:00 73 28 H 122/73 99 01/13/22 20:45 70 0 L 126/72 99 01/13/22 20:30 68 15 131/75 100 01/13/22 20:18 73 118/70 98 01/13/22 20:15 73 28 H 118/70 100 01/13/22 20:00 98.3 F 77 84 28 H 111/75 100 01/13/22 19:45 71 28 H 113/73 100 01/13/22 19:30 74 28 H 111/69 100 01/13/22 19:15 74 28 H 115/69 100 01/13/22 19:00 75 28 H 116/69 100 01/13/22 18:45 75 29 H 119/72 100 01/13/22 18:30 70 28 H 124/70 100 01/13/22 18:27 72 28 H 130/67 99 01/13/22 18:15 76 25 H 113/72 99 01/13/22 18:00 76 28 H 113/72 98 01/13/22 17:45 72 28 H 116/73 97 01/13/22 17:30 76 28 H 108/68 96 01/13/22 17:15 75 28 H 110/69 01/13/22 17:00 76 28 H 112/70 96 01/13/22 16:45 76 28 H 116/73 97 01/13/22 16:30 76 18 129/77 99 01/13/22 16:28 76 129/77 100 01/13/22 16:15 72 28 H 121/72 01/13/22 16:00 98.5 F 74 84 28 H 125/65 97 01/13/22 15:45 78 28 H 113/69 97 01/13/22 15:30 75 28 H 109/66 98 01/13/22 15:15 74 28 H 118/71 100 01/13/22 15:00 75 28 H 118/71 01/13/22 14:45 74 28 H 111/71 01/13/22 14:30 76 28 H 117/72 01/13/22 14:15 76 28 H 120/74 98 - Physical Examination General: Other (Intubated) Neck: Positive: trachea midline Cardiac: Positive: Reg Rate and Rhythm Lungs: Positive: Rales, Ventilated Respirations Neuro: Positive: Other (Somnolent. Will ) Abdomen: Positive: Active Bowel Sounds Skin: Negative: Rash Extremities: Present: edema (ble), Cool - Labs and Meds Coagulation 01/14/22 Range/Units Unknown PT 49.5 H (12.2-14.9) Sec. INR 4.55 H (0.87-1.13) CBC 01/14/22 Range/Units 04:00 WBC 11.5 H (4.5-11.0) K/mm3 RBC 4.34 (3.65-5.03) M/mm3 Hgb 11.7 L (11.8-15.2) gm/dl Hct 36.4 (35.5-45.6) % Plt Count 147 (140-440) K/mm3 Comprehensive Metabolic Panel 01/14/22 Range/Units 04:00 Sodium 141 (137-145) mmol/L Potassium 3.5 L D (3.6-5.0) mmol/L Chloride 104.3 (98-107) mmol/L Carbon Dioxide 21 L (22-30) mmol/L BUN 81 H (9-20) mg/dL Creatinine 5.2 H (0.8-1.3) mg/dL Glucose 133 H (75-100) mg/dL Calcium 8.1 L (8.4-10.2) mg/dL - Imaging and Cardiology EKG: report reviewed, image reviewed Echo: report reviewed - Telemetry EKG Rhythm: Paced - EKG Sinus rhythms and dysrhythmias: sinus rhythm (RBBB)
--- NOTE | 2022-01-14 17:08 | Procedure Note ---
Date of procedure: 01/14/22 Pre-op diagnosis: Acute Kidney Injury Post-op diagnosis: same Procedure: Right femoral VasCath Exchange Patient was evaluated and required temporary VasCath placement for Hemodialysis. Informed consent was obtained from patient's , Dulce Solorio A time-out was completed verifying correct patient, procedure, site, and positioning. Hand hygiene were performed immediately prior to the procedure and sterile technique was used throughout the procedure. Previous Triple Lumen CVC and site were impregnated and prepped with iodine, then the site was then again scrubbed with chlorhexidine and draped in a sterile fashion. A guidewire exchange was performed under sterile condition the triple lumen catheter was removed and a trialysis catheter was introduced using the Seldinger technique.The catheter threaded smoothly over the guidewire and advanced easily into the vein. Brisk blood return was observed from each lumen and each lumen were flushed and clamped. 1% Lidocaine was used to anesthetize the surrounding skin area then the catheter was sutured in place, a Biopatch was placed at the insertion site, and covered with a sterile dressing. Patient tolerated the procedure well, no signs of any adverse reaction noted. VasCath is ready for use. Total Time Spent with Patient (Minutes): 60 minutes Anesthesia: local Surgeon: TATUM MIRELES Estimated blood loss: minimal Condition: critical Disposition: ICU
[2022-01-14] MEDS: AMIODARONE 900 MG in DEXTROSE 5% IN WATER 482 ML IV SCH (17:29)
--- NOTE | 2022-01-14 17:33 | Electrocardiograph Report ---
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
--- NOTE | 2022-01-14 19:06 | Progress Note ---
Assessment and Plan Acute Hypoxic Respiratory Failure on MVS Fulminant Pulmonary Edema/ Possible CAP Ventricular Tachycardia - Implantable Cardioverter-Defibrillator (ICD) discharge CAD (Coronary Artery Disease) Congestive Heart Failure with Reduce EF h/o HTN (Hypertension) Acute Kidney Injury(MARCIO) Hypokalemia-improved Possible CAP Type 2 Diabetes Mellitus SAT/SBT today PSV 8/8 If he tolerates it fro an hour, get weaning parameters. If acceptable will liberate from MVS He apears to have sleep apnea- will support him with BIPAP qhs post extubation Patient is in ATN, and does not appear to have any indication for immediate HD. -Titrate supplemental oxygen oxygen for SpO2 89-92% -Lung protective strategies,ARDS net protocol -CXR, ABG as clinically indicated -Propofol titrate to patient-ventilator synchrony -Continue to monitor renal function, hemodynamics and electrolyte profile -Avoid nephrotoxins, adjust all medications for GFR and CrCL -Bustamante catheter in this critically ill patient requiring strict intake and output monitoring. Daily assessment for ongoing need for Bustamante catheter-continues to require a Bustamante catheter -Replete electrolytes as clinically indicated -Empiric antibiotics for CAP ( Azithromycin and Ceftriaxone) - complete 5 day course -Accuchecks with glycemic control, target blood glucose 140-180 mg/dL. Avoid hypoglycemia -VTE prophylaxis- coagulopathic, no pharmacologic prophylaxis at this time. Once INR is <2, will resume Coumadin with goal INR of 2-3 -Stress ulcer prophylaxis-Famotidine -Mobility, frequent turning, off loading per facility protocol to prevent pressure ulcers -Maintain sleep wake cycle, avoid benzodiazepines. -Limit delirium -Enteric nutritional support- titrate to goal. -Supportive blood transfusion, keep HgB>7g/dL -replace electrolytes and address as clinically indicated CONDITION:CRITICAL PROGNOSIS: GUARDED CODE STATUS; FULL CODE Discussed in interdisciplinary rounds The high probability of a clinically significant, sudden or life threatening deterioration of the respiratory, cardiovascular, renal and renal systems required my full and direct attention, intervention and personal management. The aggregate critical care time was [35] minutes. This time is in addition to time spent performing reported procedures but includes the following: [x] Data Review and interpretation [x] Patient assessment and monitoring of vital signs [x] Documentation [x] Medication orders and management Subjective Date of service: 01/14/22 Principal diagnosis: Acute respiratory failure, acute on chronic HFrEF, MARCIO Interval history: This is a 56-year-old AA male with known past medical history of UT, aortic regurgitation, non-obstructive CAD, HFrEF, s/p AICD, diabetes, hyperlipidemia, and hypertension admitted for AICD discharge. Decompensated in the ED s/p emergent intubation now on ventilatory support, in fulminant pulmonary edema Seen and examined. Vitals, labs,medications, chart and imaging reviewed. Discussed with respiratory and nursing care staff. No adverse overnight events reported. Vent:+8/ 40%. On Propofol , on Amiodarone and Dobutamine Tolerated SBT yesterday but increased work of breathing towards the end of the trial, placed back on full support. SBT today PSV 8/8 Worsening renal function but making good amounts of urine Lines: Right Femoral CVL, Bustamante catheter Objective - Exam Narrative Exam: Constitutional: other (sedated, ETT to MVS, no patient-ventilator dys-synchrony) Eyes: non-icteric ENT: oropharynx moist Neck: supple, no lymphadenopathy Effort: mildly labored Ascultation: Bilateral: diminished breath sounds, rhonchi Cardiovascular: irregular rhythm, other (S1,S2) Gastrointestinal: normoactive bowel sounds, soft, non-tender, non-distended Integumentary: other (right femoral CVL, and arterial line) Extremities: edema Neurologic: non-focal exam, other (moves all extremities) Psychiatric: Calm Vital Signs - 12hr 01/14/22 01/14/22 01/14/22 07:12 07:15 07:30 Temperature 98.3 F Pulse Rate 74 74 Pulse Rate [ From Monitor] Respiratory 28 H 28 H Rate Blood Pressure 114/65 100/67 O2 Sat by Pulse 97 97 Oximetry 01/14/22 01/14/22 01/14/22 07:45 08:00 08:15 Temperature 98.3 F Pulse Rate 74 73 75 Pulse Rate [ 84 From Monitor] Respiratory 28 H 26 H 28 H Rate Blood Pressure 108/58 120/66 106/66 O2 Sat by Pulse 96 98 100 Oximetry 01/14/22 01/14/22 01/14/22 08:30 08:41 08:45 Temperature Pulse Rate 70 71 71 Pulse Rate [ From Monitor] Respiratory 28 H 28 H Rate Blood Pressure 116/74 116/74 122/75 O2 Sat by Pulse 97 99 100 Oximetry 01/14/22 01/14/2222 09:01 09:15 09:30 Temperature Pulse Rate 74 74 75 Pulse Rate [ From Monitor] Respiratory 27 H 28 H 28 H Rate Blood Pressure 127/76 137/76 137/74 O2 Sat by Pulse 94 96 96 Oximetry 01/14/22 01/14/22 01/14/22 09:45 10:00 10:15 Temperature Pulse Rate 76 80 75 Pulse Rate [ From Monitor] Respiratory 24 27 H 28 H Rate Blood Pressure 133/76 143/69 131/74 O2 Sat by Pulse 96 97 94 Oximetry 01/14/22 01/14/22 01/14/22 10:30 10:45 11:01 Temperature Pulse Rate 76 127 H 131 H Pulse Rate [ From Monitor] Respiratory 28 H 22 29 H Rate Blood Pressure 141/74 141/74 158/97 O2 Sat by Pulse 95 96 92 Oximetry 01/14/22 01/14/22 01/14/22 11:15 11:28 11:31 Temperature Pulse Rate 87 79 83 Pulse Rate [ From Monitor] Respiratory 25 H 30 H Rate Blood Pressure 158/97 114/66 114/66 O2 Sat by Pulse 96 95 Oximetry 01/14/22 01/14/22 01/14/22 11:45 12:00 12:15 Temperature Pulse Rate 76 76 72 Pulse Rate [ 84 From Monitor] Respiratory 28 H 28 H 28 H Rate Blood Pressure 113/69 110/68 118/62 O2 Sat by Pulse 95 95 93 Oximetry 01/14/22 01/14/22 01/14/22 12:30 12:45 12:59 Temperature 97.8 F Pulse Rate 71 71 Pulse Rate [ From Monitor] Respiratory 29 H 28 H Rate Blood Pressure 100/61 100/61 O2 Sat by Pulse 94 97 Oximetry 01/14/22 01/14/22 01/14/22 13:01 13:15 13:30 Temperature Pulse Rate 72 67 68 Pulse Rate [ From Monitor] Respiratory 28 H 28 H 28 H Rate Blood Pressure 94/58 94/58 95/68 O2 Sat by Pulse 93 97 96 Oximetry 01/14/22 01/14/22 01/14/22 13:45 14:01 14:15 Temperature Pulse Rate 69 67 71 Pulse Rate [ From Monitor] Respiratory 28 H 28 H 28 H Rate Blood Pressure 95/68 97/64 97/64 O2 Sat by Pulse 98 96 98 Oximetry 01/14/22 01/14/22 01/14/22 14:30 14:45 15:01 Temperature Pulse Rate 69 73 69 Pulse Rate [ From Monitor] Respiratory 28 H 25 H 28 H Rate Blood Pressure 95/62 95/62 111/69 O2 Sat by Pulse 98 98 97 Oximetry 01/14/22 01/14/22 01/14/22 15:15 15:31 15:45 Temperature Pulse Rate 75 76 73 Pulse Rate [ From Monitor] Respiratory 25 H 22 18 Rate Blood Pressure 111/69 116/71 116/71 O2 Sat by Pulse 99 95 98 Oximetry 01/14/22 01/14/22 01/14/22 16:00 16:01 16:15 Temperature 98.1 F Pulse Rate 69 78 78 Pulse Rate [ 84 From Monitor] Respiratory 26 H 21 29 H Rate Blood Pressure 134/74 134/74 O2 Sat by Pulse 98 93 97 Oximetry 01/14/22 01/14/22 01/14/22 16:24 16:31 16:45 Temperature Pulse Rate 72 69 77 Pulse Rate [ From Monitor] Respiratory 20 28 H Rate Blood Pressure 134/74 146/68 146/68 O2 Sat by Pulse 98 92 98 Oximetry 01/14/22 01/14/22 01/14/22 17:00 17:15 17:30 Temperature Pulse Rate 74 71 79 Pulse Rate [ From Monitor] Respiratory 21 18 21 Rate Blood Pressure 169/80 169/80 131/83 O2 Sat by Pulse 92 98 96 Oximetry 01/14/22 01/14/22 17:45 18:01 Temperature Pulse Rate 72 73 Pulse Rate [ From Monitor] Respiratory 26 H 22 Rate Blood Pressure 131/83 124/76 O2 Sat by Pulse 98 98 Oximetry CBC and BMP: 01/16/22 05:10 01/16/22 05:10 ABG, PT/INR, D-dimer: ABG ABG pH 7.403 pH Units (7.350-7.450) 01/14/22 13:10 ABG pCO2 36.5 mm Hg 01/14/22 13:10 ABG pO2 92.1 mm Hg (80.0-90.0) H 01/14/22 13:10 ABG O2 Saturation 97.3 % (95.0-99.0) 01/14/22 13:10 PT/INR, D-dimer PT 49.5 Sec. (12.2-14.9) H 01/14/22 Unknown INR 4.55 (0.87-1.13) H 01/14/22 Unknown Abnormal lab findings: Abnormal Labs 01/10/22 01/10/22 01/10/22 21:47 21:47 21:47 WBC Hgb MCH RDW 19.5 H Lymph % (Auto) 6.0 L Lymph # (Auto) 0.3 L Seg Neutrophils % 85.9 H Seg Neutrophils # PT 27.8 H INR 2.25 H APTT 38.8 H ABG pH ABG pO2 ABG HCO3 ABG O2 Saturation ABG Base Excess ABG Hemoglobin Oxyhemoglobin Sodium 147 H Potassium 3.4 L Chloride 109.0 H Carbon Dioxide BUN 24 H Creatinine Glucose 149 H POC Glucose Lactic Acid Calcium Phosphorus Magnesium Total Bilirubin 1.30 H AST ALT Total Creatine Kinase Troponin T 0.063 H C-Reactive Protein Total Protein Albumin HDL Cholesterol 35 L Urine Blood Urine WBC (Auto) Urine Creatinine Urine Total Protein 01/10/22 01/11/22 01/11/22 21:47 00:12 00:15 WBC Hgb MCH RDW Lymph % (Auto) Lymph # (Auto) Seg Neutrophils % Seg Neutrophils # PT INR APTT ABG pH ABG pO2 ABG HCO3 ABG O2 Saturation ABG Base Excess ABG Hemoglobin Oxyhemoglobin Sodium Potassium Chloride Carbon Dioxide BUN Creatinine Glucose POC Glucose 130 H Lactic Acid Calcium Phosphorus Magnesium 1.50 L Total Bilirubin AST ALT Total Creatine Kinase Troponin T 0.058 H C-Reactive Protein Total Protein Albumin HDL Cholesterol Urine Blood Urine WBC (Auto) Urine Creatinine Urine Total Protein 01/11/22 01/11/22 01/11/22 04:20 04:20 09:09 WBC Hgb MCH RDW Lymph % (Auto) Lymph # (Auto) Seg Neutrophils % Seg Neutrophils # PT INR APTT ABG pH ABG pO2 ABG HCO3 ABG O2 Saturation ABG Base Excess ABG Hemoglobin Oxyhemoglobin Sodium Potassium Chloride Carbon Dioxide 21 L BUN 23 H Creatinine 1.4 H Glucose 157 H POC Glucose Lactic Acid Calcium Phosphorus Magnesium Total Bilirubin AST ALT Total Creatine Kinase Troponin T 0.075 H D C-Reactive Protein Total Protein Albumin HDL Cholesterol Urine Blood Large A Urine WBC (Auto) 22.0 H Urine Creatinine Urine Total Protein 01/11/22 01/11/22 01/11/22 09:19 09:55 14:15 WBC Hgb MCH RDW Lymph % (Auto) Lymph # (Auto) Seg Neutrophils % Seg Neutrophils # PT INR APTT ABG pH 7.265 L ABG pO2 40.4 L ABG HCO3 ABG O2 Saturation 64.5 L ABG Base Excess -5.9 L -3.5 L ABG Hemoglobin Oxyhemoglobin 63.1 L 94.9 L Sodium Potassium Chloride Carbon Dioxide BUN Creatinine Glucose POC Glucose 236 H Lactic Acid Calcium Phosphorus Magnesium Total Bilirubin AST ALT Total Creatine Kinase Troponin T C-Reactive Protein Total Protein Albumin HDL Cholesterol Urine Blood Urine WBC (Auto) Urine Creatinine Urine Total Protein 01/11/22 01/11/22 01/11/22 17:09 19:41 19:41 WBC Hgb MCH RDW Lymph % (Auto) Lymph # (Auto) Seg Neutrophils % Seg Neutrophils # PT INR APTT ABG pH ABG pO2 ABG HCO3 ABG O2 Saturation ABG Base Excess ABG Hemoglobin Oxyhemoglobin Sodium Potassium Chloride Carbon Dioxide 18 L BUN 34 H Creatinine 2.2 H D Glucose 153 H POC Glucose 137 H Lactic Acid 3.30 H* Calcium Phosphorus Magnesium Total Bilirubin AST ALT Total Creatine Kinase Troponin T C-Reactive Protein Total Protein Albumin HDL Cholesterol Urine Blood Urine WBC (Auto) Urine Creatinine Urine Total Protein 01/11/22 01/11/22 01/12/22 19:41 20:26 00:24 WBC Hgb MCH RDW Lymph % (Auto) Lymph # (Auto) Seg Neutrophils % Seg Neutrophils # PT INR APTT ABG pH ABG pO2 218.2 H ABG HCO3 18.5 L ABG O2 Saturation 99.3 H ABG Base Excess -5.0 L ABG Hemoglobin Oxyhemoglobin Sodium Potassium Chloride Carbon Dioxide BUN Creatinine Glucose POC Glucose 155 H Lactic Acid Calcium Phosphorus 1.70 L Magnesium 4.80 H Total Bilirubin AST ALT Total Creatine Kinase Troponin T C-Reactive Protein Total Protein Albumin HDL Cholesterol Urine Blood Urine WBC (Auto) Urine Creatinine Urine Total Protein 01/12/22 01/12/22 01/12/22 05:10 05:10 05:10 WBC Hgb MCH RDW Lymph % (Auto) Lymph # (Auto) Seg Neutrophils % Seg Neutrophils # PT 36.1 H INR 3.09 H APTT ABG pH ABG pO2 ABG HCO3 ABG O2 Saturation ABG Base Excess ABG Hemoglobin Oxyhemoglobin Sodium Potassium Chloride Carbon Dioxide BUN Creatinine Glucose POC Glucose Lactic Acid 3.80 H* Calcium Phosphorus Magnesium Total Bilirubin AST ALT Total Creatine Kinase Troponin T C-Reactive Protein 13.20 H Total Protein Albumin HDL Cholesterol Urine Blood Urine WBC (Auto) Urine Creatinine Urine Total Protein 01/12/22 01/12/22 01/12/22 05:20 08:57 09:30 WBC Hgb MCH RDW Lymph % (Auto) Lymph # (Auto) Seg Neutrophils % Seg Neutrophils # PT INR APTT ABG pH ABG pO2 194.1 H ABG HCO3 ABG O2 Saturation 99.2 H ABG Base Excess ABG Hemoglobin 12.7 L Oxyhemoglobin Sodium Potassium Chloride Carbon Dioxide 21 L BUN 42 H Creatinine 3.3 H Glucose 178 H POC Glucose Lactic Acid 3.60 H* Calcium Phosphorus Magnesium Total Bilirubin AST 73 H ALT 79 H Total Creatine Kinase Troponin T C-Reactive Protein Total Protein 6.2 L Albumin 3.3 L HDL Cholesterol Urine Blood Urine WBC (Auto) Urine Creatinine Urine Total Protein 01/12/22 01/12/22 01/12/22 09:38 14:30 15:23 WBC Hgb MCH RDW 20.0 H Lymph % (Auto) Lymph # (Auto) Seg Neutrophils % Seg Neutrophils # PT INR APTT ABG pH ABG pO2 ABG HCO3 ABG O2 Saturation ABG Base Excess ABG Hemoglobin Oxyhemoglobin Sodium Potassium Chloride Carbon Dioxide BUN Creatinine Glucose POC Glucose Lactic Acid 4.00 H* Calcium Phosphorus Magnesium Total Bilirubin AST ALT Total Creatine Kinase Troponin T C-Reactive Protein Total Protein Albumin HDL Cholesterol Urine Blood Urine WBC (Auto) Urine Creatinine 220.1 H Urine Total Protein 105 H 01/12/22 01/12/22 01/12/22 15:23 16:50 16:51 WBC Hgb MCH RDW Lymph % (Auto) Lymph # (Auto) Seg Neutrophils % Seg Neutrophils # PT INR APTT ABG pH ABG pO2 ABG HCO3 ABG O2 Saturation ABG Base Excess ABG Hemoglobin Oxyhemoglobin Sodium Potassium Chloride Carbon Dioxide BUN Creatinine Glucose POC Glucose 207 H Lactic Acid Calcium Phosphorus Magnesium Total Bilirubin AST ALT Total Creatine Kinase 202 H Troponin T C-Reactive Protein Total Protein Albumin HDL Cholesterol Urine Blood Large A Urine WBC (Auto) 85.0 H Urine Creatinine Urine Total Protein 01/12/22 01/13/22 01/13/22 16:51 03:09 04:04 WBC Hgb MCH RDW Lymph % (Auto) Lymph # (Auto) Seg Neutrophils % Seg Neutrophils # PT 46.8 H INR 4.25 H APTT ABG pH ABG pO2 226.5 H ABG HCO3 17.0 L ABG O2 Saturation 99.3 H ABG Base Excess -7.1 L ABG Hemoglobin 13.8 L Oxyhemoglobin Sodium Potassium Chloride Carbon Dioxide BUN Creatinine Glucose POC Glucose Lactic Acid Calcium Phosphorus Magnesium Total Bilirubin AST ALT Total Creatine Kinase Troponin T C-Reactive Protein Total Protein Albumin HDL Cholesterol Urine Blood Urine WBC (Auto) Urine Creatinine 224.3 H Urine Total Protein 105 H 01/13/22 01/13/22 01/13/22 06:31 08:28 08:47 WBC 12.1 H Hgb MCH RDW 20.1 H Lymph % (Auto) 5.0 L Lymph # (Auto) 0.6 L Seg Neutrophils % 88.2 H Seg Neutrophils # 10.6 H PT INR APTT ABG pH ABG pO2 ABG HCO3 ABG O2 Saturation ABG Base Excess ABG Hemoglobin Oxyhemoglobin Sodium Potassium Chloride Carbon Dioxide 19 L BUN 62 H Creatinine 4.9 H Glucose 128 H POC Glucose 130 H Lactic Acid Calcium Phosphorus Magnesium Total Bilirubin AST ALT Total Creatine Kinase Troponin T C-Reactive Protein Total Protein Albumin HDL Cholesterol Urine Blood Urine WBC (Auto) Urine Creatinine Urine Total Protein 01/13/22 01/14/22 01/14/22 11:41 04:00 04:00 WBC 11.5 H Hgb 11.7 L MCH 27 L RDW 19.8 H Lymph % (Auto) Lymph # (Auto) Seg Neutrophils % Seg Neutrophils # PT INR APTT ABG pH ABG pO2 ABG HCO3 ABG O2 Saturation ABG Base Excess ABG Hemoglobin Oxyhemoglobin Sodium Potassium 3.5 L D Chloride Carbon Dioxide 21 L BUN 81 H Creatinine 5.2 H Glucose 133 H POC Glucose 142 H Lactic Acid Calcium 8.1 L Phosphorus Magnesium Total Bilirubin AST ALT Total Creatine Kinase Troponin T C-Reactive Protein Total Protein Albumin HDL Cholesterol Urine Blood Urine WBC (Auto) Urine Creatinine Urine Total Protein 01/14/22 01/14/22 01/14/22 04:20 05:46 11:18 WBC Hgb MCH RDW Lymph % (Auto) Lymph # (Auto) Seg Neutrophils % Seg Neutrophils # PT INR APTT ABG pH ABG pO2 45.7 L ABG HCO3 ABG O2 Saturation 77.6 L ABG Base Excess -2.2 L ABG Hemoglobin 12.2 L Oxyhemoglobin 75.8 L Sodium Potassium Chloride Carbon Dioxide BUN Creatinine Glucose POC Glucose 117 H 127 H Lactic Acid Calcium Phosphorus Magnesium Total Bilirubin AST ALT Total Creatine Kinase Troponin T C-Reactive Protein Total Protein Albumin HDL Cholesterol Urine Blood Urine WBC (Auto) Urine Creatinine Urine Total Protein 01/14/22 01/14/22 13:10 Unknown WBC Hgb MCH RDW Lymph % (Auto) Lymph # (Auto) Seg Neutrophils % Seg Neutrophils # PT 49.5 H INR 4.55 H APTT ABG pH ABG pO2 92.1 H ABG HCO3 ABG O2 Saturation ABG Base Excess -2.1 L ABG Hemoglobin 11.6 L Oxyhemoglobin Sodium Potassium Chloride Carbon Dioxide BUN Creatinine Glucose POC Glucose Lactic Acid Calcium Phosphorus Magnesium Total Bilirubin AST ALT Total Creatine Kinase Troponin T C-Reactive Protein Total Protein Albumin HDL Cholesterol Urine Blood Urine WBC (Auto) Urine Creatinine Urine Total Protein Chest x-ray: image reviewed Allied health notes reviewed: RT
--- NOTE | 2022-01-14 19:44 | Progress Note ---
Assessment and Plan Acute kidney injury, cr 2.2-->3.3-->4.9-->5.1. Suspect ATN. Acute hypoxic respiratory failure, status post intubation Shock Ventricular tachycardia Coronary artery disease Congestive heart failure with reduced ejection fraction Elevated LFTs Case discussed in detail with father at bedside and consent obtained to proceed with dialysis. Plan to proceed with vasc cath placement today in anticipation of dialysis, tentatively plan for HD tomorrow morning. No proteinuria Ultrasound negative for acute pathology/hydronephrosis/retention Continue sodium bicarb tablets Keep MAP more than 65 Continue Thiamine supplementation Renally dose medications Avoid nephrotoxins Renal diet Thank you for involving us in the care of this patient. Total critical care time spent 32 minutes. Please call with questions. Subjective Date of service: 01/14/22 Principal diagnosis: Acute respiratory failure, acute on chronic HFrEF, MARCIO Interval history: Seen in ICU. Remains intubated. Father at bedside. Objective - Exam Narrative Exam: General: Sedated. Intubated. HEENT: Oral mucosa moist Neck: Supple, no JVD Chest: Intubated. Mechanical breath sounds. Heart: RRR, S1 and S2, no pericardial rub Abdomen: Soft, nontender, no renal bruit Extremity: No peripheral cyanosis, edema Neurological: Alert, awake, no asterixis Dermatology: No skin rash Psych: No agitation Musculoskeletal: No joint effusion - Vital Signs Vital signs: Vital Signs - 12hr 01/14/22 01/14/22 01/14/22 07:45 08:00 08:15 Temperature 98.3 F Pulse Rate 74 73 75 Pulse Rate [ 84 From Monitor] Respiratory 28 H 26 H 28 H Rate Blood Pressure 108/58 120/66 106/66 O2 Sat by Pulse 96 98 100 Oximetry 01/14/22 01/14/22 01/14/22 08:30 08:41 08:45 Temperature Pulse Rate 70 71 71 Pulse Rate [ From Monitor] Respiratory 28 H 28 H Rate Blood Pressure 116/74 116/74 122/75 O2 Sat by Pulse 97 99 100 Oximetry 01/14/22 01/14/22 01/14/22 09:01 09:15 09:30 Temperature Pulse Rate 74 74 75 Pulse Rate [ From Monitor] Respiratory 27 H 28 H 28 H Rate Blood Pressure 127/76 137/76 137/74 O2 Sat by Pulse 94 96 96 Oximetry 07/02/2801/14/22 01/14/22 09:45 10:00 10:15 Temperature Pulse Rate 76 80 75 Pulse Rate [ From Monitor] Respiratory 24 27 H 28 H Rate Blood Pressure 133/76 143/69 131/74 O2 Sat by Pulse 96 97 94 Oximetry 01/14/22 01/14/22 01/14/22 10:30 10:45 11:01 Temperature Pulse Rate 76 127 H 131 H Pulse Rate [ From Monitor] Respiratory H 22 29 H Rate Blood Pressure 141/74 141/74 158/97 O2 Sat by Pulse 95 96 92 Oximetry 01/14/22 01/14/22 01/14/22 11:15 11:28 11:31 Temperature Pulse Rate 87 79 83 Pulse Rate [ From Monitor] Respiratory 25 H 30 H Rate Blood Pressure 158/97 114/66 114/66 O2 Sat by Pulse 96 95 Oximetry 01/14/22 01/14/22 01/14/22 11:45 12:00 12:15 Temperature Pulse Rate 76 76 72 Pulse Rate [ 84 From Monitor] Respiratory 28 H 28 H 28 H Rate Blood Pressure 113/69 110/68 118/62 O2 Sat by Pulse 95 95 93 Oximetry 01/14/22 01/14/22 01/14/22 12:30 12:45 12:59 Temperature 97.8 F Pulse Rate 71 71 Pulse Rate [ From Monitor] Respiratory 29 H 28 H Rate Blood Pressure 100/61 100/61 O2 Sat by Pulse 94 97 Oximetry 01/14/22 01/14/22 01/14/22 13:01 13:15 13:30 Temperature Pulse Rate 72 67 68 Pulse Rate [ From Monitor] Respiratory 28 H 28 H 28 H Rate Blood Pressure 94/58 94/58 95/68 O2 Sat by Pulse 93 97 96 Oximetry 01/14/22 01/14/22 01/14/22 13:45 14:01 14:15 Temperature Pulse Rate 69 67 71 Pulse Rate [ From Monitor] Respiratory 28 H 28 H 28 H Rate Blood Pressure 95/68 97/64 97/64 O2 Sat by Pulse 98 96 98 Oximetry 01/14/22 01/14/22 01/14/22 14:30 14:45 15:01 Temperature Pulse Rate 69 73 69 Pulse Rate [ From Monitor] Respiratory 28 H 25 H 28 H Rate Blood Pressure 95/62 95/62 111/69 O2 Sat by Pulse 98 98 97 Oximetry 01/14/22 01/14/22 01/14/22 15:15 15:31 15:45 Temperature Pulse Rate 75 76 73 Pulse Rate [ From Monitor] Respiratory 25 H 22 18 Rate Blood Pressure 111/69 116/71 116/71 O2 Sat by Pulse 99 95 98 Oximetry 01/14/22 01/14/22 01/14/22 16:00 16:01 16:15 Temperature 98.1 F Pulse Rate 69 78 78 Pulse Rate [ 84 From Monitor] Respiratory 26 H 21 29 H Rate Blood Pressure 134/74 134/74 O2 Sat by Pulse 98 93 97 Oximetry 01/14/22 01/14/22 01/14/22 16:24 16:31 16:45 Temperature Pulse Rate 72 69 77 Pulse Rate [ From Monitor] Respiratory 20 28 H Rate Blood Pressure 134/74 146/68 146/68 O2 Sat by Pulse 98 92 98 Oximetry 01/14/22 01/14/22 01/14/22 17:00 17:15 17:30 Temperature Pulse Rate 74 71 79 Pulse Rate [ From Monitor] Respiratory 21 18 21 Rate Blood Pressure 169/80 169/80 131/83 O2 Sat by Pulse 92 98 96 Oximetry 01/14/22 01/14/22 17:45 18:01 Temperature Pulse Rate 72 73 Pulse Rate [ From Monitor] Respiratory 26 H 22 Rate Blood Pressure 131/83 124/76 O2 Sat by Pulse 98 98 Oximetry - Lab 01/14/22 04:00 01/14/22 04:00 Most recent lab results ABG pH 7.403 pH Units (7.350-7.450) 01/14/22 13:10 ABG pCO2 36.5 mm Hg 01/14/22 13:10 ABG pO2 92.1 mm Hg (80.0-90.0) H 01/14/22 13:10 ABG HCO3 22.2 mmol/L (20.0-26.0) 01/14/22 13:10 ABG O2 Saturation 97.3 % (95.0-99.0) 01/14/22 13:10 Calcium 8.1 mg/dL (8.4-10.2) L 01/14/22 04:00 Phosphorus 1.70 mg/dL (2.5-4.5) L 01/11/22 19:41 Magnesium 4.80 mg/dL (1.7-2.3) H 01/11/22 19:41 Urine Creatinine 224.3 mg/dL (0.1-20.0) H 01/12/22 16:51 Urine Total Protein 105 mg/dL (5-11.8) H 01/12/22 16:51 Medications & Allergies - Medications Allergies/Adverse Reactions: Allergies aspirin Adverse Reaction (Verified 01/10/22 21:41) Unknown patient is taking warfarin and has been advised to not take aspirin Home Medications: Home Medications Medication Instructions Recorded Confirmed Last Taken Type Isosorbide Mononitrate [Isosorbide 30 mg PO DAILY #30 tab.er.24h 08/20/13 01/14/22 01/15/17 08:00 Rx Mononitrate ER] carvediloL [Coreg] 25 mg PO BID #60 tablet 08/20/13 01/14/22 09/22/18 Rx Furosemide [Lasix] 40 mg PO DAILY #30 tablet 09/17/13 01/14/22 01/15/17 08:00 Rx AtorvaSTATin [Lipitor] 80 mg PO QHS #30 tablet 01/19/17 01/14/22 Unknown Rx amLODIPine 10 mg PO DAILY 09/23/18 01/14/22 09/22/18 History cloNIDine-TTS PATCH [Catapres-Tts 1 patch TD Q7D 09/23/18 01/14/22 09/21/18 History 0.1MG Patch] hydrALAZINE [Apresoline TAB] 50 mg PO TID 09/23/18 01/14/22 09/22/18 History metFORMIN [Glucophage] 500 mg PO BID 09/23/18 01/14/22 Unknown History Potassium Chloride [K-Dur] 10 meq PO QDAY 03/28/19 01/14/22 Unknown History Warfarin [Coumadin] 2.5 mg PO QDAY 03/28/19 01/14/22 Unknown History ISOSORBIDE MONOnitrate [Imdur ER] 30 mg PO QDAY #30 tablet 03/29/19 01/14/22 Unknown Rx Warfarin [Coumadin] 7.5 mg PO DAILY@1700 tablet 03/30/19 01/14/22 Unknown Rx Active Medications: Generic Name Dose Route Start Last Admin Trade Name Freq PRN Reason Stop Dose Admin Acetaminophen 650 mg 01/10/22 23:49 Acetaminophen 325 Mg Tab PO Q6H PRN Pain MILD(1-3)/Fever >100.5/NÚÑEZ Albuterol 2.5 mg 01/11/22 00:19 Albuterol 2.5 Mg/3 Ml Nebu IH Q4HRT PRN Shortness Of Breath Atorvastatin Calcium 80 mg 01/11/22 22:00 01/13/22 21:36 Atorvastatin 40 Mg Tab FEEDTUBE 80 mg QHS SHAKEEL Administration Dextrose 50 ml 01/10/22 23:49 Dextrose 50% In Water (25gm) 50 Ml Syringe IV Q30MIN PRN Hypoglycemia Protocol Famotidine 10 mg 01/13/22 11:00 01/14/22 09:37 Famotidine 10 Mg Tab FEEDTUBE 10 mg BID SHAKEEL Administration Fentanyl 50 mcg 01/11/22 09:28 01/14/22 11:11 Fentanyl 100 Mcg/2 Ml Inj IV 50 mcg Q10MIN PRN Administration ANALGESIA Hydrophilic Ointment 1 applic 01/12/22 09:02 Lip Therapy Vaseline TP Q2HR PRN Dry Lips Propofol 1,000 mg in 100 mls @ 3.538 mls/hr 01/11/22 10:00 01/14/22 17:28 Diprivan 10 Mg/Ml IV 10 mcg/kg/min TITR SHAKEEL 7.076 mls/hr Titration Protocol 5 MCG/KG/MIN Fentanyl Citrate 2,000 mcg in 100 mls @ 5.897 mls/hr 01/11/22 10:00 Fentanyl Drip Premix IV TITR SHAKEEL Protocol 1 MCG/KG/HR Vasopressin 20 unit/ Sodium 101 mls @ 9.09 mls/hr 01/11/22 14:00 01/12/22 16:04 Chloride IV 0 units/min TITR SHAKEEL 0 mls/hr Titration Protocol 0.03 UNITS/MIN NORepinephrine/NS 8 MG-250 ML 8 mg in 250 mls @ 3.75 mls/hr 01/11/22 14:00 01/12/22 17:22 Norepinephrine/Ns 8 Mg-250 Ml (Double Conc) IV 0 mcg/min TITRATE SHAKEEL 0 mls/hr Titration Protocol 2 MCG/MIN Amiodarone HCl 900 mg/ 500 mls @ 33.333 mls/hr 01/12/22 15:00 01/14/22 17:29 Dextrose IV 0.5 mg/min DIRECT SHAKEEL 16.667 mls/hr Administration Protocol 1 MG/MIN Dobutamine HCl/Dextrose 500 mg in 250 mls @ 8.845 mls/hr 01/13/22 12:00 01/14/22 12:21 Dobutrex Drip 500mg/D5w 250ml IV 2.5 mcg/kg/min DIRECT SHAKEEL 8.845 mls/hr Administration Protocol 2.5 MCG/KG/MIN Insulin Human Lispro 0 unit 01/11/22 12:00 01/14/22 18:22 Insulin Lispro 100 Unit/Ml SUB-Q Not Given Q6HR SHAKEEL Protocol Magnesium Hydroxide 30 ml 01/10/22 23:49 Magnesium Hydroxide (Mom) Oral Liqd Udc PO Q4H PRN Constipation Multi-Ingred Cream/Lotion/Oil/Oint 1 applic 01/12/22 09:02 Mineral Oil/Petrolatum, White Ophth Oint 3.5 Gm OU Q4HR PRN Dry Eye(s) Ondansetron HCl 4 mg 01/10/22 23:49 Ondansetron 4 Mg/2 Ml Inj IV Q8H PRN Nausea And Vomiting Senna/Docusate Sodium 1 tab 01/12/22 10:00 01/14/22 09:37 Sennosides/Docusate Sodium 8.6/50 Mg Tab FEEDTUBE 1 tab BID SHAKEEL Administration Sodium Bicarbonate 1,300 mg 01/13/22 14:00 01/14/22 14:59 Sodium Bicarbonate 650 Mg Tab PO 1,300 mg TID SHAKEEL Administration Sodium Chloride 10 ml 01/11/22 10:00 01/14/22 09:37 Sodium Chloride 0.9% 10 Ml Flush Syringe IV 10 ml BID SHAKEEL Administration Sodium Chloride 10 ml 01/10/22 23:49 Sodium Chloride 0.9% 10 Ml Flush Syringe IV PRN PRN LINE FLUSH Thiamine HCl 100 mg 01/13/22 10:00 01/14/22 09:37 Thiamine 100 Mg Tab FEEDTUBE 100 mg QDAY SHAKEEL Administration
[2022-01-14] MEDS ORDERED: SODIUM CHLORIDE 0.9% 100 ML IV PRN (19:45)
[2022-01-15] MEDS: INSULIN LISPRO 100 UNIT/ML SUB-Q SCH ×4 (00:18→18:51)
[2022-01-15 04:52] LABS: ABG Base Excess -1.4 mmol/L (-2.0-3.0); ABG HCO3 22.4 mmol/L (20.0-26.0); ABG Methemoglobin 0.6 % (0.0-1.5); ABG Oxygen Saturation 97.8 % (95.0-99.0); ABG PCO2 34.4 mm Hg; ABG PH 7.432 pH Units (7.350-7.450); ABG PO2 101.6 mm Hg (80.0-90.0)
[2022-01-15 05:26] LABS: Hematocrit 35.3 % (35.5-45.6); Hemoglobin 11.4 gm/dl (11.8-15.2); Mean Corpuscular HGB Conc 32 % (32-34); Mean Corpuscular Volume 85 fl (84-94); Platelet Count 156 K/mm3 (140-440); Red Blood Count 4.16 M/mm3 (3.65-5.03); Red Cell Distribution Width 19.6 % (13.2-15.2)
[2022-01-15 05:49] LABS: INR 2.83 (0.87-1.13)
[2022-01-15 05:52] LABS: Hepatitis B Surface Antigen Non-Reactive (Negative); Hepatitis C Virus Antibody Non-Reactive (NonReactive)
[2022-01-15] MEDS: SODIUM BICARBONATE 650 MG TAB PO SCH ×3 (08:05→21:30)
[2022-01-15] MEDS ORDERED: POTASSIUM CHLORIDE 20 MEQ PACKET FEEDTUBE ONE (08:37)
--- NOTE | 2022-01-15 09:25 | XRay Report ---
CHEST 1 VIEW 01/15/2022 8:24 AM INDICATION / CLINICAL INFORMATION: follow up respiratory failure. COMPARISON: One view of the chest from 01/14/2022. FINDINGS: SUPPORT DEVICES: Unchanged. HEART / MEDIASTINUM: Stable. LUNGS / PLEURA: There are increased generalized left pulmonary opacities with a questionable small le ft pleural effusion. The right lung is clear. No pneumothorax. ADDITIONAL FINDINGS: No significant additional findings. IMPRESSION: 1. Increased left pulmonary opacities, possibly representing atelectasis, with involvement of a possi ble small left pleural effusion. 2. No other significant interval changes. Signer Name: Jc Ramos MD Signed: 01/15/2022 9:20 AM Workstation Name: [id number]
[2022-01-15] MEDS: THIAMINE 100 MG TAB FEEDTUBE SCH (09:49)
[2022-01-15] MEDS: FAMOTIDINE 10 MG TAB FEEDTUBE SCH ×2 (09:49→21:29)
[2022-01-15] MEDS: SENNOSIDES/DOCUSATE SODIUM 8.6/50 MG TAB FEEDTUBE SCH ×2 (09:51→23:37)
--- NOTE | 2022-01-15 10:35 | Progress Note ---
Assessment and Plan This is a 56-year-old -[place] male, who follows with Dr. KURTIS Ferrer, with past medical history of aortic regurgitation, non-obstructive CAD (via [facility] 2009) HFrEF, diabetes, hyperlipidemia, hypertension, s/p BI-V ICD ([facility] [facility]) Acute on chronic HFrEF Acute Pulmonary edema - copious pink, frothy sputum noted on intubation Acute Hypoxic Respiratory Failure-pulmonology following S/p ICD shock MARCIO-nephrology following Mildly elevated troponin- likely 2/2 to acutely decompensated HF/pulmonary edema/ICD shocks Hyperlipidemia Hypertension DM - mangement per primary team S/p Bi-V ICD ([facility] [facility]) H/o Stroke (OAC with Coumadin since 11/2020) H/o Prostate CA (2020) Home medications: Amlodipine 5 mg p.o. daily, atorvastatin 80 mg p.o. nightly, clonidine 0.1 mg transdermal patch q. 7 days, carvedilol 25 mg p.o. twice daily, hydralazine 50 mg p.o. 3 times daily, Imdur 30 mg p.o. every morning, Lasix 40 mg p.o. daily, metformin 500 mg p.o. twice daily, warfarin 5 mg tablet p.o. daily. Echocardiogram 03/2019: Mild to moderate concentric LV hypertrophy is observed. The LV size is moderate to severely dilated. RV global systolic function is mildly reduced. Mild aortic regurgitation. RV systolic pressure is calculated at 21 mmHg. Global LV systolic function is severely decreased. Estimated EF is 20 to 25%. Cath- 05/2010 at [facility]: Nonobstructive CAD Echo 01/11/2022-EF 10 to 15%. LV is severely dilated. Severe global hypokinesis of LV. Left ventricular diastolic function is indeterminate. Right ventricle is dilated. Right ventricle is hypokinetic. Left atrium is mildly dilated. Trace to mild aortic regurgitation. Mild mitral regurgitation. Mild tricuspid regurgitation. IVC is dilated. IVC collapses with less than 50% of inspiration rec: pt on dobuatine and having 1.5 l out put off lasix and waiting for extubation and change to oral amio. Subjective Date of service: 01/15/22 Principal diagnosis: Acute respiratory failure, acute on chronic HFrEF, MARCIO Interval history: arousable on vent Objective Vital Signs Temp Pulse Pulse Resp BP Pulse Ox 01/15/22 08:00 97.4 F L 84 84 26 H 136/67 98 01/15/22 07:45 86 28 H 146/73 100 01/15/22 07:38 73 142/74 95 01/15/22 07:31 73 21 146/73 91 01/15/22 07:15 73 24 142/74 95 01/15/22 07:00 79 24 142/74 93 01/15/22 06:45 71 22 137/68 95 01/15/22 06:30 70 24 137/68 91 01/15/22 06:15 73 24 134/62 95 01/15/22 06:01 72 24 134/62 90 01/15/22 05:45 84 21 117/76 94 01/15/22 05:30 73 24 103/70 91 01/15/22 05:15 79 27 H 146/76 95 01/15/22 05:01 117/76 86 01/15/22 04:45 121 H 28 H 146/76 97 01/15/22 04:30 70 28 H 146/76 94 01/15/22 04:20 71 146/76 99 01/15/22 04:15 72 28 H 139/76 100 01/15/22 04:00 71 84 28 H 139/76 94 01/15/22 03:53 97.7 F 01/15/22 03:45 70 28 H 128/71 97 01/15/22 03:30 70 28 H 128/71 94 01/15/22 03:15 71 28 H 131/80 97 01/15/22 03:00 73 28 H 131/80 94 01/15/22 02:45 71 28 H 128/71 97 01/15/22 02:31 72 28 H 128/71 94 01/15/22 02:15 73 28 H 144/79 97 01/15/22 02:00 78 28 H 144/79 95 01/15/22 01:45 74 28 H 132/78 97 01/15/22 01:31 72 28 H 132/78 94 01/15/22 01:15 71 28 H 131/77 97 01/15/22 01:00 72 28 H 131/77 93 01/15/22 00:45 71 28 H 109/76 98 01/15/22 00:30 72 26 H 109/76 93 01/15/22 00:29 72 109/76 98 01/15/22 00:15 68 28 H 117/71 97 01/15/22 00:01 68 28 H 117/71 94 01/15/22 00:00 97.6 F 65 84 26 H 98 01/14/22 23:45 75 28 H 114/73 97 01/14/22 23:30 69 28 H 114/73 95 01/14/22 23:15 69 28 H 124/71 97 01/14/22 23:00 75 28 H 124/71 92 01/14/22 22:55 71 28 H 143/79 97 01/14/22 22:45 71 28 H 143/79 98 01/14/22 22:30 67 28 H 143/79 97 01/14/22 22:15 72 28 H 135/72 97 01/14/22 22:00 70 28 H 135/72 93 01/14/22 21:45 73 27 H 142/76 97 01/14/22 21:30 71 21 142/76 94 01/14/22 21:15 77 27 H 151/77 97 01/14/22 21:00 86 23 151/77 93 01/14/22 20:54 82 151/77 97 01/14/22 20:45 75 19 97 01/14/22 20:30 68 20 151/77 98 01/14/22 20:15 67 21 151/77 99 01/14/22 20:00 97.8 F 65 84 26 H 151/77 98 01/14/22 19:45 70 21 142/71 98 01/14/22 19:30 71 18 142/71 96 01/14/22 19:15 68 19 142/80 99 01/14/22 19:00 75 21 142/80 99 01/14/22 18:45 72 28 H 145/75 99 01/14/22 18:30 72 19 145/75 01/14/22 18:15 68 20 124/76 98 01/14/22 18:01 73 22 124/76 98 01/14/22 17:45 72 26 H 131/83 98 01/14/22 17:30 79 21 131/83 96 01/14/22 17:15 71 18 169/80 98 01/14/22 17:00 74 21 169/80 92 01/14/22 16:45 77 28 H 146/68 98 01/14/22 16:31 69 20 146/68 92 01/14/22 16:24 72 134/74 98 01/14/22 16:15 78 29 H 134/74 97 01/14/22 16:01 78 21 134/74 93 01/14/22 16:00 98.1 F 69 84 26 H 98 01/14/22 15:45 73 18 116/71 98 01/14/22 15:31 76 22 116/71 95 01/14/22 15:15 75 25 H 111/69 99 01/14/22 15:01 69 28 H 111/69 97 01/14/22 14:45 73 25 H 95/62 98 01/14/22 14:30 69 28 H 95/62 98 01/14/22 14:15 71 28 H 97/64 98 01/14/22 14:01 67 28 H 97/64 96 01/14/22 13:45 69 28 H 95/68 98 01/14/22 13:30 68 28 H 95/68 96 01/14/22 13:15 67 28 H 94/58 97 01/14/22 13:01 72 28 H 94/58 93 01/14/22 12:59 97.8 F 01/14/22 12:45 71 28 H 100/61 97 01/14/22 12:30 71 29 H 100/61 94 01/14/22 12:15 72 28 H 118/62 93 01/14/22 12:00 76 84 28 H 110/68 95 01/14/22 11:45 76 28 H 113/69 95 01/14/22 11:31 83 30 H 114/66 95 01/14/22 11:28 79 114/66 96 01/14/22 11:15 87 25 H 158/97 01/14/22 11:01 131 H 29 H 158/97 92 01/14/22 10:45 127 H 22 141/74 96 - Physical Examination General: Other (Intubated) HEENT: Positive: PERRL Neck: Positive: trachea midline Cardiac: Positive: Reg Rate and Rhythm Lungs: Positive: clear to auscultation Neuro: Positive: Other (Somnolent. Will ) Abdomen: Positive: Active Bowel Sounds Skin: Negative: Rash Extremities: Present: Cool. Absent: edema (ble) - Labs and Meds Coagulation 01/15/22 Range/Units 04:45 PT 33.5 H (12.2-14.9) Sec. INR 2.83 H (0.87-1.13) CBC 01/15/22 Range/Units 04:45 WBC 8.0 (4.5-11.0) K/mm3 RBC 4.16 (3.65-5.03) M/mm3 Hgb 11.4 L (11.8-15.2) gm/dl Hct 35.3 L (35.5-45.6) % Plt Count 156 (140-440) K/mm3 Comprehensive Metabolic Panel 01/15/22 Range/Units 04:45 Sodium 144 (137-145) mmol/L Potassium 3.0 L (3.6-5.0) mmol/L Chloride 106.8 (98-107) mmol/L Carbon Dioxide 23 (22-30) mmol/L BUN 80 H (9-20) mg/dL Creatinine 4.5 H (0.8-1.3) mg/dL Glucose 103 H (75-100) mg/dL Calcium 8.0 L (8.4-10.2) mg/dL - Imaging and Cardiology EKG: report reviewed, image reviewed Echo: report reviewed - EKG Sinus rhythms and dysrhythmias: sinus rhythm (RBBB)
--- NOTE | 2022-01-15 11:56 | Progress Note ---
Assessment and Plan Assessment and plan: This is a 56-year-old AA male with known past medical history of VA, aortic regurgitation, non-obstructive CAD, HFrEF, s/p AICD, diabetes, hyperlipidemia, and hypertension admitted for AICD discharge. Decompensated in the ED s/p emergent intubation now on ventilatory support, in fulminant pulmonary edema. Hospital Course to Date: 01/11: S/p emergent intubation by the ED physician due to increase WOB, tachypnea, and lethagy. Kiel frothy sputum noted in ETT, fulminant pulmonary edema. Additional 40mg Iv lasix administered. Patient is Currently on high vent setting, 100% Fio2 and 16 of Peep. SPO2 remains labile, repeat ABG pending. CCM on consult for vent management. ST with BBB noted on the monitor, on amiodarone gtt for VTach per Cardio, VSS, echo pending. Monitor electrolytes and replete as needed. 01/12: Stable on the vent this am. This am ABG and Cxr noted. Now on pressors for hypotension, remains on amiodarone gtt. Accelerated junctional rhythm noted on the monitor this am, Dobutamine gtt held. 2D Echo pending. With worsen renal function this am, now oliguric, only 200cc in last 24hrs. IV lasix held, Nephrology consulted. Patient remains coagulopathic, per records patient was on Coumadin at home. INR 3.09 this am, Hold AC for now. 01/13: Remains stable on the vent, down to 50% Fio2 and 8 of peep this am. Plan for SAT trial this am to assess mentation, plan for possible PSV trial in the am. Patient is off pressors this am, remains on Amio gtt. Remains in a junctional rhythm with frequent ectopy. Enteral nutrition initiated. Remains oliguric with worsening renal function, awaiting Nephrology final recs. 8: Following commands this am, continue vent wean for PSV trial later on today or tomorrow. Remains on Amio gtt, back on dobutamine gtt per Cardio, EF 10- to 15%. Patient remains afebrile and off pressors, VSS, cultures with NGTD. IV Abx D/C for now. With worsen renal function this am, but making urine this am. Awaiting Nephro recs. Continue to monitor PT/INR and for s/s of any active bleeding. Continue to hold AC for now. 01/15: Remains on Amio and dobutamine gtt, stable on th event, following commands. Plan for PSV trial this am for possible extubation. Good UOP in last 24hrs, mild improvement in renal function. Trialysis cath inserted, possible HD per Nephro. D/w Cardio keep dobutamine gtt for another 24 to 48hrs, D/C amio gtt and tr ansition to PO amio BID. Monitor and repleted electrolytes as needed. Assessment and Plan #Acute Hypoxic Respiratory Failure #Fulminant Pulmonary Edema-improved #Possible CAP - Emergently intubated in the ED on 01/11 due to increase WOB, tachypnea, and lethagy - Kiel frothy sputum noted in ETT - CXR noted, suggesting pulmonary edema but can't exclude infectious Etiology - Vent setting:PRVC-30%,6,24,400 - This am ABG noted - Repeat CXR with resolution of the bilateral pulmonary edema or infiltrates - CCM consulted, appreciate recommendations - Continue to wean vent per CCM - VAP bundle addressed - Aspiration precaution HOB above 30 - Daily SBT and SAT trials as tolerated - Daily ABG and CXR - Continue SPO2 monitoring for SPO2 goal above 92% #Ventricular Tachycardia #Implantable Cardioverter-Defibrillator (ICD) discharge #CAD (Coronary Artery Disease) #Congestive Heart Failure with Reduce EF #Elevated troponin #HTN (Hypertension) - Presented with Chest pain - Went into in V.TACH in the ED, AICD discharged - Troponin are elevated X2, probably due to demand ischemia - [address] with RBBB - call center consultant Sales Development Coordinator contacted in the ED, no evidence of ischemia noted at that time - 01/12 Echo reveals Left ventricle is severely dilated. Left ventricular systolic function is severely decreased. There is severe global hypokinesis of the left ventricle. LVEF is 10-15%. The left ventricular diastolic function is inde terminate. - On Amio and dobutamine gtt - D/w Cardio keep dobutamine gtt for another 24hrs, D/C amio gtt and transition to PO amio BID. - Lasix held due to worsen renal function - Cardiology on consult, appreciated recommendations - Continue blood pressure monitor per protocol - Maintain MAP above 65 - AC on hold due to supratherapeutic INR, patient was on coumadin at home #Acute Kidney Injury(MARCIO) #Hypokalemia - mild increased in scr. this am, most likely prerenal - IV lasix held - UOP and renal function improved - Trialysis cath inserted for possible HD per Nephro - Nephrology consulted - Continue to trend BMP - Strict intake and output - Avoid nephrotoxic medications - Monitor and replace electrolytes as needed #Possible CAP - Presented with high fevers TMAX 101.1 - CXR noted, suggesting pulmonary edema but can't exclude infectious Etiology - COVID PCR negative - Blood cultures, UA, and sputum culture with NGTD - Empiric IV Abx held - F/u on cultures - Daily CBC monitor - Consider ID consult if febrile and if leukocytosis occur #Supratherapeutic INR - Patient was on coumadin at home due to recurrent CVA - INR improved this am - No s/s of any active bleeding, no reversal warranted at this time - Continue to hold AC for now - Continue to trend PT/INR, resume home coumadin once INR less than 2 #Type 2 Diabetes Mellitus - BG check and SSI Q6hrs - Avoid hypoglycemia - While critically ill target blood glucose of 140-180 #GI/DVT Prophylaxis - PPI- Pepcid - SCDs to bilateral lower extremities while in bed #Advance Care Planning - Disease education data, care plan, diagnoses, and prognosis were discussed with patient's at the bedside. Patient is a FULL code. Patient's acknowledged understanding and agreement with current care plan. The high probability of a clinically significant, sudden or life threatening deterioration of the [multiple] system(s) required my full and direct attention, intervention and personal management. The aggregate critical care time was [60] minutes. This time is in addition to time spent performing reported procedures but includes the following: [x] Data Review and interpretation [x] Patient assessment and monitoring of vital signs [x] Documentation [x] Medication orders and management Disposition Plan: ICU Total Time Spent with Patient (Minutes): 60 History Interval history: Patient seen and examined in the bedside. Stable on the vent, on low dose propofol gtt. Following commands, moving all extremities. Remains on Amiodarone and dobutamine gtt per Cardio. Good urine output in last 24hrs. JEREMY overnight Hospitalist Physical - Constitutional Vitals: Temp Pulse Resp BP Pulse Ox 97.4 F L 81 24 142/68 93 01/15/22 08:00 01/15/22 10:30 01/15/22 10:30 01/15/22 10:30 01/15/22 10:30 General appearance: Present: no acute distress, well-nourished, obese, other (Intubated. On low dose sedation, following commands) - EENT Eyes: Present: PERRL ENT: hearing intact - Neck Neck: Present: normal ROM - Respiratory Respiratory effort: normal - Cardiovascular Rhythm: irregularly irregular Heart Sounds: Present: S1 & S2 - Extremities Extremities: no ischemia, pulses intact, pulses symmetrical Peripheral Pulses: within normal limits - Abdominal General gastrointestinal: soft, non-distended, normal bowel sounds - Integumentary Integumentary: Present: warm, dry - Psychiatric Psychiatric: other (Intubated. On low dose sedation, following commands) - Neurologic Neurologic: other (Intubated. On low dose sedation, following commands) - Allied Health Allied health notes reviewed: nursing, case management HEART Score - HEART Score EKG: Non-specific Age: 45-65 Risk factors: > 3 risk factors or hx of atherosclerotic disease Troponin: Troponin T 0.075 ng/mL (0.00-0.029) H D 01/11/22 04:20 Troponin: 1-3x normal limit - Critical Actions Critical Actions: 4-6 pts:12-16.6% risk of adverse cardiac event. Should be admitted Results - Labs CBC & Chem 7: 01/16/22 05:10 01/16/22 05:10 Labs: Laboratory Last Values WBC 8.0 K/mm3 (4.5-11.0) 01/15/22 04:45 RBC 4.16 M/mm3 (3.65-5.03) 01/15/22 04:45 Hgb 11.4 gm/dl (11.8-15.2) L 01/15/22 04:45 Hct 35.3 % (35.5-45.6) L 01/15/22 04:45 MCV 85 fl (84-94) 01/15/22 04:45 MCH 27 pg (28-32) L 01/15/22 04:45 MCHC 32 % (32-34) 01/15/22 04:45 RDW 19.6 % (13.2-15.2) H 01/15/22 04:45 Plt Count 156 K/mm3 (140-440) 01/15/22 04:45 Lymph % (Auto) 5.0 % (13.4-35.0) L 01/13/22 08:28 [place] % (Auto) 6.5 % (0.0-7.3) 01/13/22 08:28 Eos % (Auto) 0.1 % (0.0-4.3) 01/13/22 08:28 Baso % (Auto) 0.2 % (0.0-1.8) 01/13/22 08:28 Lymph # (Auto) 0.6 K/mm3 (1.2-5.4) L 01/13/22 08:28 [place]y # (Auto) 0.8 K/mm3 (0.0-0.8) 01/13/22 08:28 Eos # (Auto) 0.0 K/mm3 (0.0-0.4) 01/13/22 08:28 Baso # (Auto) 0.0 K/mm3 (0.0-0.1) 01/13/22 08:28 Seg Neutrophils % 88.2 % (40.0-70.0) H 01/13/22 08:28 Seg Neutrophils # 10.6 K/mm3 (1.8-7.7) H 01/13/22 08:28 PT 33.5 Sec. (12.2-14.9) H 01/15/22 04:45 INR 2.83 (0.87-1.13) H 01/15/22 04:45 APTT 38.8 Sec. (24.2-36.6) H 01/10/22 21:47 ABG pH 7.432 pH Units (7.350-7.450) 01/15/22 04:15 ABG pCO2 34.4 mm Hg 01/15/22 04:15 ABG pO2 101.6 mm Hg (80.0-90.0) H 01/15/22 04:15 ABG HCO3 22.4 mmol/L (20.0-26.0) 01/15/22 04:15 ABG O2 Saturation 97.8 % (95.0-99.0) 01/15/22 04:15 ABG O2 Content 15.2 (0.0-44) 01/15/22 04:15 ABG Base Excess -1.4 mmol/L (-2.0-3.0) 01/15/22 04:15 ABG Hemoglobin 11.2 gm/dl (14.0-18.0) L 01/15/22 04:15 ABG Carboxyhemoglobin 1.5 % (0.0-5.0) 01/15/22 04:15 ABG Methemoglobin 0.6 % (0.0-1.5) 01/15/22 04:15 Oxyhemoglobin 95.8 % (95.0-99.0) 01/15/22 04:15 FiO2 35 % 01/15/22 04:15 Sodium 144 mmol/L (137-145) 01/15/22 04:45 Potassium 3.0 mmol/L (3.6-5.0) L 01/15/22 04:45 Chloride 106.8 mmol/L (98-107) 01/15/22 04:45 Carbon Dioxide 23 mmol/L (22-30) 01/15/22 04:45 Anion Gap 17 mmol/L 01/15/22 04:45 BUN 80 mg/dL (9-20) H 01/15/22 04:45 Creatinine 4.5 mg/dL (0.8-1.3) H 01/15/22 04:45 Estimated GFR 16 ml/min 01/15/22 04:45 BUN/Creatinine Ratio 18 % 01/15/22 04:45 Glucose 103 mg/dL (75-100) H 01/15/22 04:45 POC Glucose 101 mg/dL (70-105) 01/14/22 23:48 Lactic Acid 4.00 mmol/L (0.7-2.0) H* 01/12/22 15:23 Calcium 8.0 mg/dL (8.4-10.2) L 01/15/22 04:45 Phosphorus 3.80 mg/dL (2.5-4.5) 01/15/22 04:45 Magnesium 2.00 mg/dL (1.7-2.3) 01/15/22 04:45 Total Bilirubin 1.00 mg/dL (0.1-1.2) 01/12/22 08:57 AST 73 units/L (5-40) H 01/12/22 08:57 ALT 79 units/L (7-56) H 01/12/22 08:57 Alkaline Phosphatase 50 units/L (35-129) 01/12/22 08:57 Total Creatine Kinase 202 units/L (55-170) H 01/12/22 15:23 Troponin T 0.075 ng/mL (0.00-0.029) H D 01/11/22 04:20 C-Reactive Protein 13.20 mg/dL (0.00-1.30) H 01/12/22 05:10 Total Protein 6.2 g/dL (6.3-8.2) L 01/12/22 08:57 Albumin 3.3 g/dL (3.9-5) L 01/12/22 08:57 Albumin/Globulin Ratio 1.1 % 01/12/22 08:57 Triglycerides 94 mg/dL (2-149) 01/10/22 21:47 Cholesterol 113 mg/dL (50-199) 01/10/22 21:47 LDL Cholesterol Direct 72 mg/dL (50-130) 01/10/22 21:47 HDL Cholesterol 35 mg/dL (40-59) L 01/10/22 21:47 Cholesterol/HDL Ratio 3.22 % 01/10/22 21:47 Procalcitonin 42.50 ng/mL (<0.15) 01/12/22 05:10 Urine Color Yellow (Yellow) 01/12/22 16:51 Urine Turbidity Cloudy (Clear) 01/12/22 16:51 Urine pH 5.0 (5.0-7.0) 01/12/22 16:51 Ur Specific [place] 1.030 (1.003-1.030) 01/12/22 16:51 Urine Protein 30 mg/dl mg/dL (Negative) 01/12/22 16:51 Urine Glucose (UA) Negative mg/dL (Negative) 01/12/22 16:51 Urine Ketones Negative mg/dL (Negative) 01/12/22 16:51 Urine Blood Large (Negative) A 01/12/22 16:51 Urine Nitrite Negative (Negative) 01/12/22 16:51 Ur Reducing Substances Not Reportable 01/12/22 16:51 Urine Bilirubin Negative (Negative) 01/12/22 16:51 Urine Ictotest Not Reportable 01/12/22 16:51 Urine Urobilinogen 0.0 mg/dL (<2.0) 01/12/22 16:51 Ur Leukocyte Esterase Trace (Negative) 01/12/22 16:51 Urine WBC (Auto) 85.0 /HPF (0.0-6.0) H 01/12/22 16:51 Urine RBC (Auto) > 182.0 /HPF (0.0-6.0) 01/12/22 16:51 U Epithel Cells (Auto) 1.0 /HPF (0-13.0) 01/12/22 16:51 Urine WBC Clumps 1+ /HPF 01/12/22 16:51 Hyaline Casts 21 /LPF 01/12/22 16:51 Urine Mucus Few /HPF 01/12/22 16:51 Urine Yeast (Budding) Few /HPF 01/12/22 16:51 Urine Creatinine 224.3 mg/dL (0.1-20.0) H 01/12/22 16:51 Protein/Creatinin Ratio 0.47 01/12/22 16:51 Urine Total Protein 105 mg/dL (5-11.8) H 01/12/22 16:51 Coronavirus (PCR) Negative (Negative) 01/11/22 15:45 Hepatitis A IgM Ab Non-reactive (NonReactive) 01/15/22 04:45 Hep Bs Antigen Non-reactive (Negative) 01/15/22 04:45 Hep B Core IgM Ab Non-reactive (NonReactive) 01/15/22 04:45 Hepatitis C Antibody Non-reactive (NonReactive) 01/15/22 04:45 Blood Type B POSITIVE 01/10/22 21:47 Antibody Screen Negative 01/10/22 21:47 Microbiology: Microbiology 01/11/22 19:41 Peripheral/Venous Blood Culture - Preliminary NO GROWTH AFTER 72 HOURS 01/11/22 19:41 Peripheral/Venous Blood Culture - Preliminary NO GROWTH AFTER 72 HOURS 01/12/22 09:02 Urine,Catheterized - Indwelling Catheter Urine Culture - Final NO GROWTH AFTER 48 HOURS [place]/IV: Voiding Method Indwelling Catheter Active Medications - Current Medications Current Medications: Generic Name Dose Route Start Last Admin Trade Name Freq PRN Reason Stop Dose Admin Acetaminophen 650 mg 01/10/22 23:49 Acetaminophen 325 Mg Tab PO Q6H PRN Pain MILD(1-3)/Fever >100.5/NÚÑEZ Albuterol 2.5 mg 01/11/22 00:19 Albuterol 2.5 Mg/3 Ml Nebu IH Q4HRT PRN Shortness Of Breath Atorvastatin Calcium 80 mg 01/11/22 22:00 01/14/22 21:28 Atorvastatin 40 Mg Tab FEEDTUBE 80 mg QHS SHAKEEL Administration Dextrose 50 ml 01/10/22 23:49 Dextrose 50% In Water (25gm) 50 Ml Syringe IV Q30MIN PRN Hypoglycemia Protocol Famotidine 10 mg 01/13/22 11:00 01/15/22 09:49 Famotidine 10 Mg Tab FEEDTUBE 10 mg BID SHAKEEL Administration Fentanyl 50 mcg 01/11/22 09:28 01/14/22 11:11 Fentanyl 100 Mcg/2 Ml Inj IV 50 mcg Q10MIN PRN Administration ANALGESIA Hydrophilic Ointment 1 applic 01/12/22 09:02 Lip Therapy Vaseline TP Q2HR PRN Dry Lips Propofol 1,000 mg in 100 mls @ 3.538 mls/hr 01/11/22 10:00 01/15/22 09:00 Diprivan 10 Mg/Ml IV 15 mcg/kg/min TITR SHAKEEL 10.614 mls/hr Titration Protocol 5 MCG/KG/MIN Fentanyl Citrate 2,000 mcg in 100 mls @ 5.897 mls/hr 01/11/22 10:00 Fentanyl Drip Premix IV TITR SHAKEEL Protocol 1 MCG/KG/HR Vasopressin 20 unit/ Sodium 101 mls @ 9.09 mls/hr 01/11/22 14:00 01/12/22 16:04 Chloride IV 0 units/min TITR SHAKEEL 0 mls/hr Titration Protocol 0.03 UNITS/MIN NORepinephrine/NS 8 MG-250 ML 8 mg in 250 mls @ 3.75 mls/hr 01/11/22 14:00 01/12/22 17:22 Norepinephrine/Ns 8 Mg-250 Ml (Double Conc) IV 0 mcg/min TITRATE SHAKEEL 0 mls/hr Titration Protocol 2 MCG/MIN Amiodarone HCl 900 mg/ 500 mls @ 33.333 mls/hr 01/12/22 15:00 01/14/22 17:29 Dextrose IV 0.5 mg/min DIRECT SHAKEEL 16.667 mls/hr Administration Protocol 1 MG/MIN Dobutamine HCl/Dextrose 500 mg in 250 mls @ 8.845 mls/hr 01/13/22 12:00 01/14/22 12:21 Dobutrex Drip 500mg/D5w 250ml IV 2.5 mcg/kg/min DIRECT SHAKEEL 8.845 mls/hr Administration Protocol 2.5 MCG/KG/MIN Sodium Chloride 100 mls @ 999 mls/hr 01/14/22 19:45 [address]acl 0.9% IV LANE PRN Hypotension Insulin Human Lispro 0 unit 01/11/22 12:00 01/15/22 06:22 Insulin Lispro 100 Unit/Ml SUB-Q Not Given Q6HR [facility] Protocol Magnesium Hydroxide 30 ml 01/10/22 23:49 Magnesium Hydroxide (Mom) Oral Liqd Udc PO Q4H PRN Constipation Multi-Ingred Cream/Lotion/Oil/Oint 1 applic 01/12/22 09:02 Mineral Oil/Petrolatum, White Ophth Oint 3.5 Gm OU Q4HR PRN Dry Eye(s) Ondansetron HCl 4 mg 01/10/22 23:49 Ondansetron 4 Mg/2 Ml Inj IV Q8H PRN Nausea And Vomiting Senna/Docusate Sodium 1 tab 01/12/22 10:00 01/15/22 09:51 Sennosides/Docusate Sodium 8.6/50 Mg Tab FEEDTUBE Not Given BID SHAKEEL Sodium Bicarbonate 1,300 mg 01/13/22 14:00 01/15/22 08:05 Sodium Bicarbonate 650 Mg Tab PO 1,300 mg TID SHAKEEL Administration Sodium Chloride 10 ml 01/11/22 10:00 01/15/22 09:51 Sodium Chloride 0.9% 10 Ml Flush Syringe IV 10 ml BID SHAKEEL Administration Sodium Chloride 10 ml 01/10/22 23:49 Sodium Chloride 0.9% 10 Ml Flush Syringe IV PRN PRN LINE FLUSH Thiamine HCl 100 mg 01/13/22 10:00 01/15/22 09:49 Thiamine 100 Mg Tab FEEDTUBE 100 mg QDAY SHAKEEL Administration Nutrition/Malnutrition Assess - Dietary Evaluation Nutrition/Malnutrition Findings: Nutrition Notes Start: 01/11/22 12:57 Freq: Status: Active Protocol: Document 01/14/22 11:50 AIMEE (Rec: 01/14/22 12:00 AIMEE [id number]) Nutrition Notes Initial or Follow up Brief Note Current Diet TF - Vital AF 1.2 at 60ml/hr Labs/Tests K 3.5 BUN 81 Cr 5.2 Pertinent Medications Propofol at 14.16ml/hr ( provides 374 kcal), Thiamine Height 5 ft 9 in Weight 117.934 kg [place] Body Weight (kg) 72.72 BMI 38.4 Weight Status Obese Subjective/Other Information Pt remains on vent support. Observed TF infusing at 50ml/ hr; per RN, pt tolerating TF so far. Per nephrology, no need for dialysis at this time , however, he may need it if renal function starts to decline. Percent of energy/protein needs met: 60% energy 100% pro Burn Absent Trauma Absent #1 Nutrition Diagnosis Inadequate oral intake Diagnosis Progress(for reassessment Continues documentation) Is patient on ventilator? Yes Is Patient Ambulatory and/or Out of Bed No REE-([place]-confined to bed) [phone] Kcal/Kg value to use for calculation 16 Approximate Energy Requirements Using 1887 kcal/Kg Calculation Used for Recommendations Kcal/kg Additional Notes Pro needs 0.8-1.2g/kg adjBW: 76-114g/day Fluid needs 1ml/kcal Nutrition Intervention Nutrition Support: Increase TF rate to Vital AF 1 .2 at 60ml/hr. Provide 100ml water flush q4h. Kcal 1,728 Protein (gm) 108 Carbohydrates (gm) 159 Fat (gm) 78 Fluid (mL) 1,168 Fiber (gm) 7 Goal #1 TF tolerance Goal #2 TF to meet 65-70% energy and at least 75% pro needs Follow-Up By: 01/17/22 Additional Comments F/U: TF goal rate/tolerance, vent status, renal function, propofol
--- NOTE | 2022-01-15 17:05 | Progress Note ---
Assessment and Plan Acute Hypoxic Respiratory Failure on MVS Fulminant Pulmonary Edema/ Possible CAP Ventricular Tachycardia - Implantable Cardioverter-Defibrillator (ICD) discharge CAD (Coronary Artery Disease) Congestive Heart Failure with Reduce EF h/o HTN (Hypertension) Acute Kidney Injury(MARCIO) Hypokalemia-improved Possible CAP Type [address] on SBT PS 8. If he tolerates it for 1 hour, get NIF and RSBI. Goal to liberate from MVS tonight Leave Propofol on and discontinue it 10 minutes towards the end of the trial Will need supportive BIPAP at night PT/OT post extubation, Bedside swallow test -continue Dobutamine at 2.5, amiodarone at 0.5mg infusions -Titrate supplemental oxygen oxygen for SpO2 89-92% -CXR, ABG as clinically indicated -Propofol titrate to patient-ventilator synchrony -Monitoring renal function, hemodynamics and electrolyte profile -Avoid nephrotoxins, adjust all medications for GFR and CrCL -Bustamante catheter in this critically ill patient requiring strict intake and out put monitoring. Daily assessment for ongoing need for Bustamante catheter -Replete electrolytes as clinically indicated -Stop antibiotics for CAP ( Azithromycin and Ceftriaxone) -Blood cultures, tracheal aspirate for cultures -Accuchecks with glycemic control, target blood glucose 140-180 mg/dL. Avoid h ypoglycemia -VTE prophylaxis- Heparin -Stress ulcer prophylaxis-Famotidine -Mobility, frequent turning, off loading per facility protocol to prevent pressure ulcers -Maintain sleep wake cycle, avoid benzodiazepines. -Limit delirium -Enteric nutritional support - Tolerating tube feedings -Supportive blood transfusion, keep HgB>7g/dL -replace electrolytes and address as clinically indicated CONDITION:CRITICAL PROGNOSIS: GUARDED CODE STATUS; FULL CODE The high probability of a clinically significant, sudden or life threatening deterioration of the respiratory, cardiovascular, renal and renal systems required my full and direct attention, intervention and personal management. The aggregate critical care time was [35] minutes. This time is in addition to time spent performing reported procedures but includes the following: [x] Data Review and interpretation [x] Patient assessment and monitoring of vital signs [x] Documentation [x] Medication orders and management Subjective Date of service: 01/15/22 Principal diagnosis: Acute respiratory failure, acute on chronic HFrEF, MARCIO Interval history: This is a 56-year-old AA male with known past medical history of OK, aortic regurgitation, non-obstructive CAD, HFrEF, s/p AICD, diabetes, hyperlipidemia, and hypertension admitted for AICD discharge. Decompensated in the ED s/p emergent intubation now on ventilatory support, in fulminant pulmonary edema Seen and examined. Vitals, labs,medications, chart and imaging reviewed. Discussed with respiratory and nursing care staff. No adverse overnight events reported. Vent:+8/40%. On Amiodarone and Dobutamine Propofol Making good amounts of urine, down trending creatinine Lines: Right Femoral trialysis catheter, Bustamante catheter Objective Vital Signs - 12hr 01/15/22 01/15/22 01/15/22 05:15 05:30 05:45 Temperature Pulse Rate 79 73 84 Pulse Rate [ From Monitor] Respiratory 27 H 24 21 Rate Blood Pressure 146/76 103/70 117/76 O2 Sat by Pulse 95 91 94 Oximetry 01/15/22 01/15/22 01/15/22 06:01 06:15 06:30 Temperature Pulse Rate 72 73 70 Pulse Rate [ From Monitor] Respiratory 24 24 24 Rate Blood Pressure 134/62 134/62 137/68 O2 Sat by Pulse 90 95 91 Oximetry 01/15/22 01/15/22 01/15/22 06:45 07:00 07:15 Temperature Pulse Rate 71 79 73 Pulse Rate [ From Monitor] Respiratory 22 24 24 Rate Blood Pressure 137/68 142/74 142/74 O2 Sat by Pulse 95 93 95 Oximetry 01/15/22 01/15/22 01/15/22 07:31 07:38 07:45 Temperature Pulse Rate 73 73 86 Pulse Rate [ From Monitor] Respiratory 21 28 H Rate Blood Pressure 146/73 142/74 146/73 O2 Sat by Pulse 91 95 100 Oximetry 01/15/22 01/15/22 01/15/22 08:00 08:15 08:30 Temperature 97.4 F L Pulse Rate 84 79 80 Pulse Rate [ 84 From Monitor] Respiratory 26 H 24 25 H Rate Blood Pressure 136/67 136/67 134/66 O2 Sat by Pulse 98 95 93 Oximetry 01/15/22 01/15/22 01/15/22 08:45 09:00 09:15 Temperature Pulse Rate 81 77 80 Pulse Rate [ From Monitor] Respiratory 25 H 24 25 H Rate Blood Pressure 134/66 137/67 134/66 O2 Sat by Pulse 95 91 96 Oximetry 01/15/22 01/15/2222 09:30 09:45 10:00 Temperature Pulse Rate 73 77 84 Pulse Rate [ From Monitor] Respiratory 24 24 25 H Rate Blood Pressure 138/65 138/65 140/68 O2 Sat by Pulse 92 95 92 Oximetry 01/15/22 01/15/22 01/15/22 10:15 10:30 10:45 Temperature Pulse Rate 78 81 82 Pulse Rate [ From Monitor] Respiratory 25 H 24 27 H Rate Blood Pressure 140/68 142/68 142/68 O2 Sat by Pulse 96 93 96 Oximetry 01/15/22 01/15/22 01/15/22 11:00 11:15 11:30 Temperature Pulse Rate 82 74 82 Pulse Rate [ From Monitor] Respiratory 26 H 24 27 H Rate Blood Pressure 147/75 147/75 153/80 O2 Sat by Pulse 93 95 94 Oximetry 01/15/22 01/15/22 01/15/22 11:45 12:00 12:15 Temperature 99.2 F Pulse Rate 74 79 78 Pulse Rate [ 84 From Monitor] Respiratory 24 26 H 24 Rate Blood Pressure 153/80 139/71 139/71 O2 Sat by Pulse 96 98 96 Oximetry 01/15/22 01/15/22 01/15/22 12:30 12:45 13:00 Temperature Pulse Rate 72 71 73 Pulse Rate [ From Monitor] Respiratory 25 H 25 H 21 Rate Blood Pressure 138/71 138/71 140/70 O2 Sat by Pulse 96 93 Oximetry 01/15/22 01/15/22 01/15/22 13:15 13:24 13:30 Temperature Pulse Rate 74 79 78 Pulse Rate [ From Monitor] Respiratory 24 27 H Rate Blood Pressure 140/70 152/80 O2 Sat by Pulse 95 96 93 Oximetry 01/15/22 01/15/22 01/15/22 13:45 14:00 14:15 Temperature Pulse Rate 77 74 74 Pulse Rate [ From Monitor] Respiratory 22 Rate Blood Pressure 152/80 151/76 151/76 O2 Sat by Pulse 96 93 96 Oximetry 01/15/22 01/15/22 01/15/22 14:30 14:45 15:00 Temperature Pulse Rate 80 87 94 H Pulse Rate [ From Monitor] Respiratory 20 28 H 26 H Rate Blood Pressure 159/84 159/84 166/85 O2 Sat by Pulse 92 95 95 Oximetry 01/15/22 01/15/2222 15:13 15:15 15:30 Temperature Pulse Rate 74 84 81 Pulse Rate [ From Monitor] Respiratory 22 29 H Rate Blood Pressure 151/76 166/85 158/84 O2 Sat by Pulse 94 97 95 Oximetry Constitutional: no acute distress, alert Eyes: non-icteric ENT: oropharynx moist Neck: supple, no lymphadenopathy Effort: mildly labored Ascultation: Bilateral: clear, diminished breath sounds Cardiovascular: regular rate and rhythm, other (S1,S2) Gastrointestinal: normoactive bowel sounds, non-tender, non-distended Integumentary: normal Extremities: no cyanosis, no edema Neurologic: normal mental status, non-focal exam Psychiatric: mood appropriate, affect normal CBC and BMP: 01/15/22 04:45 01/15/22 04:45 ABG, PT/INR, D-dimer: ABG ABG pH 7.432 pH Units (7.350-7.450) 01/15/22 04:15 ABG pCO2 34.4 mm Hg 01/15/22 04:15 ABG pO2 101.6 mm Hg (80.0-90.0) H 01/15/22 04:15 ABG O2 Saturation 97.8 % (95.0-99.0) 01/15/22 04:15 PT/INR, D-dimer PT 33.5 Sec. (12.2-14.9) H 01/15/22 04:45 INR 2.83 (0.87-1.13) H 01/15/22 04:45 Abnormal lab findings: Abnormal Labs 01/10/22 01/10/22 01/10/22 21:47 21:47 21:47 WBC Hgb Hct MCH RDW 19.5 H Lymph % (Auto) 6.0 L Lymph # (Auto) 0.3 L Seg Neutrophils % 85.9 H Seg Neutrophils # PT 27.8 H INR 2.25 H APTT 38.8 H ABG pH ABG pO2 ABG HCO3 ABG O2 Saturation ABG Base Excess ABG Hemoglobin Oxyhemoglobin Sodium 147 H Potassium 3.4 L Chloride 109.0 H Carbon Dioxide BUN 24 H Creatinine Glucose 149 H POC Glucose Lactic Acid Calcium Phosphorus Magnesium Total Bilirubin 1.30 H AST ALT Total Creatine Kinase Troponin T 0.063 H C-Reactive Protein Total Protein Albumin HDL Cholesterol 35 L Urine Blood Urine WBC (Auto) Urine Creatinine Urine Total Protein 01/10/22 01/11/22 01/11/22 21:47 00:12 00:15 WBC Hgb Hct MCH RDW Lymph % (Auto) Lymph # (Auto) Seg Neutrophils % Seg Neutrophils # PT INR APTT ABG pH ABG pO2 ABG HCO3 ABG O2 Saturation ABG Base Excess ABG Hemoglobin Oxyhemoglobin Sodium Potassium Chloride Carbon Dioxide BUN Creatinine Glucose POC Glucose 130 H Lactic Acid Calcium Phosphorus Magnesium 1.50 L Total Bilirubin AST ALT Total Creatine Kinase Troponin T 0.058 H C-Reactive Protein Total Protein Albumin HDL Cholesterol Urine Blood Urine WBC (Auto) Urine Creatinine Urine Total Protein 01/11/22 01/11/22 01/11/22 04:20 04:20 09:09 WBC Hgb Hct MCH RDW Lymph % (Auto) Lymph # (Auto) Seg Neutrophils % Seg Neutrophils # PT INR APTT ABG pH ABG pO2 ABG HCO3 ABG O2 Saturation ABG Base Excess ABG Hemoglobin Oxyhemoglobin Sodium Potassium Chloride Carbon Dioxide 21 L BUN 23 H Creatinine 1.4 H Glucose 157 H POC Glucose Lactic Acid Calcium Phosphorus Magnesium Total Bilirubin AST ALT Total Creatine Kinase Troponin T 0.075 H D C-Reactive Protein Total Protein Albumin HDL Cholesterol Urine Blood Large A Urine WBC (Auto) 22.0 H Urine Creatinine Urine Total Protein 01/11/22 01/11/22 01/11/22 09:19 09:55 14:15 WBC Hgb Hct MCH RDW Lymph % (Auto) Lymph # (Auto) Seg Neutrophils % Seg Neutrophils # PT INR APTT ABG pH 7.265 L ABG pO2 40.4 L ABG HCO3 ABG O2 Saturation 64.5 L ABG Base Excess -5.9 L -3.5 L ABG Hemoglobin Oxyhemoglobin 63.1 L 94.9 L Sodium Potassium Chloride Carbon Dioxide BUN Creatinine Glucose POC Glucose 236 H Lactic Acid Calcium Phosphorus Magnesium Total Bilirubin AST ALT Total Creatine Kinase Troponin T C-Reactive Protein Total Protein Albumin HDL Cholesterol Urine Blood Urine WBC (Auto) Urine Creatinine Urine Total Protein 01/11/22 01/11/22 01/11/22 17:09 19:41 19:41 WBC Hgb Hct MCH RDW Lymph % (Auto) Lymph # (Auto) Seg Neutrophils % Seg Neutrophils # PT INR APTT ABG pH ABG pO2 ABG HCO3 ABG O2 Saturation ABG Base Excess ABG Hemoglobin Oxyhemoglobin Sodium Potassium Chloride Carbon Dioxide 18 L BUN 34 H Creatinine 2.2 H D Glucose 153 H POC Glucose 137 H Lactic Acid 3.30 H* Calcium Phosphorus Magnesium Total Bilirubin AST ALT Total Creatine Kinase Troponin T C-Reactive Protein Total Protein Albumin HDL Cholesterol Urine Blood Urine WBC (Auto) Urine Creatinine Urine Total Protein 01/11/22 01/11/22 01/12/22 19:41 20:26 00:24 WBC Hgb Hct MCH RDW Lymph % (Auto) Lymph # (Auto) Seg Neutrophils % Seg Neutrophils # PT INR APTT ABG pH ABG pO2 218.2 H ABG HCO3 18.5 L ABG O2 Saturation 99.3 H ABG Base Excess -5.0 L ABG Hemoglobin Oxyhemoglobin Sodium Potassium Chloride Carbon Dioxide BUN Creatinine Glucose POC Glucose 155 H Lactic Acid Calcium Phosphorus 1.70 L Magnesium 4.80 H Total Bilirubin AST ALT Total Creatine Kinase Troponin T C-Reactive Protein Total Protein Albumin HDL Cholesterol Urine Blood Urine WBC (Auto) Urine Creatinine Urine Total Protein 01/12/22 01/12/22 01/12/22 05:10 05:10 05:10 WBC Hgb Hct MCH RDW Lymph % (Auto) Lymph # (Auto) Seg Neutrophils % Seg Neutrophils # PT 36.1 H INR 3.09 H APTT ABG pH ABG pO2 ABG HCO3 ABG O2 Saturation ABG Base Excess ABG Hemoglobin Oxyhemoglobin Sodium Potassium Chloride Carbon Dioxide BUN Creatinine Glucose POC Glucose Lactic Acid 3.80 H* Calcium Phosphorus Magnesium Total Bilirubin AST ALT Total Creatine Kinase Troponin T C-Reactive Protein 13.20 H Total Protein Albumin HDL Cholesterol Urine Blood Urine WBC (Auto) Urine Creatinine Urine Total Protein 01/12/22 01/12/22 01/12/22 05:20 08:57 09:30 WBC Hgb Hct MCH RDW Lymph % (Auto) Lymph # (Auto) Seg Neutrophils % Seg Neutrophils # PT INR APTT ABG pH ABG pO2 194.1 H ABG HCO3 ABG O2 Saturation 99.2 H ABG Base Excess ABG Hemoglobin 12.7 L Oxyhemoglobin Sodium Potassium Chloride Carbon Dioxide 21 L BUN 42 H Creatinine 3.3 H Glucose 178 H POC Glucose Lactic Acid 3.60 H* Calcium Phosphorus Magnesium Total Bilirubin AST 73 H ALT 79 H Total Creatine Kinase Troponin T C-Reactive Protein Total Protein 6.2 L Albumin 3.3 L HDL Cholesterol Urine Blood Urine WBC (Auto) Urine Creatinine Urine Total Protein 01/12/22 01/12/22 01/12/22 09:38 14:30 15:23 WBC Hgb Hct MCH RDW 20.0 H Lymph % (Auto) Lymph # (Auto) Seg Neutrophils % Seg Neutrophils # PT INR APTT ABG pH ABG pO2 ABG HCO3 ABG O2 Saturation ABG Base Excess ABG Hemoglobin Oxyhemoglobin Sodium Potassium Chloride Carbon Dioxide BUN Creatinine Glucose POC Glucose Lactic Acid 4.00 H* Calcium Phosphorus Magnesium Total Bilirubin AST ALT Total Creatine Kinase Troponin T C-Reactive Protein Total Protein Albumin HDL Cholesterol Urine Blood Urine WBC (Auto) Urine Creatinine 220.1 H Urine Total Protein 105 H 01/12/22 01/12/22 01/12/22 15:23 16:50 16:51 WBC Hgb Hct MCH RDW Lymph % (Auto) Lymph # (Auto) Seg Neutrophils % Seg Neutrophils # PT INR APTT ABG pH ABG pO2 ABG HCO3 ABG O2 Saturation ABG Base Excess ABG Hemoglobin Oxyhemoglobin Sodium Potassium Chloride Carbon Dioxide BUN Creatinine Glucose POC Glucose 207 H Lactic Acid Calcium Phosphorus Magnesium Total Bilirubin AST ALT Total Creatine Kinase 202 H Troponin T C-Reactive Protein Total Protein Albumin HDL Cholesterol Urine Blood Large A Urine WBC (Auto) 85.0 H Urine Creatinine Urine Total Protein 01/12/22 01/13/22 01/13/22 16:51 03:09 04:04 WBC Hgb Hct MCH RDW Lymph % (Auto) Lymph # (Auto) Seg Neutrophils % Seg Neutrophils # PT 46.8 H INR 4.25 H APTT ABG pH ABG pO2 226.5 H ABG HCO3 17.0 L ABG O2 Saturation 99.3 H ABG Base Excess -7.1 L ABG Hemoglobin 13.8 L Oxyhemoglobin Sodium Potassium Chloride Carbon Dioxide BUN Creatinine Glucose POC Glucose Lactic Acid Calcium Phosphorus Magnesium Total Bilirubin AST ALT Total Creatine Kinase Troponin T C-Reactive Protein Total Protein Albumin HDL Cholesterol Urine Blood Urine WBC (Auto) Urine Creatinine 224.3 H Urine Total Protein 105 H 01/13/22 01/13/22 01/13/22 06:31 08:28 08:47 WBC 12.1 H Hgb Hct MCH RDW 20.1 H Lymph % (Auto) 5.0 L Lymph # (Auto) 0.6 L Seg Neutrophils % 88.2 H Seg Neutrophils # 10.6 H PT INR APTT ABG pH ABG pO2 ABG HCO3 ABG O2 Saturation ABG Base Excess ABG Hemoglobin Oxyhemoglobin Sodium Potassium Chloride Carbon Dioxide 19 L BUN 62 H Creatinine 4.9 H Glucose 128 H POC Glucose 130 H Lactic Acid Calcium Phosphorus Magnesium Total Bilirubin AST ALT Total Creatine Kinase Troponin T C-Reactive Protein Total Protein Albumin HDL Cholesterol Urine Blood Urine WBC (Auto) Urine Creatinine Urine Total Protein 01/13/22 01/14/22 01/14/22 11:41 04:00 04:00 WBC 11.5 H Hgb 11.7 L Hct MCH 27 L RDW 19.8 H Lymph % (Auto) Lymph # (Auto) Seg Neutrophils % Seg Neutrophils # PT INR APTT ABG pH ABG pO2 ABG HCO3 ABG O2 Saturation ABG Base Excess ABG Hemoglobin Oxyhemoglobin Sodium Potassium 3.5 L D Chloride Carbon Dioxide 21 L BUN 81 H Creatinine 5.2 H Glucose 133 H POC Glucose 142 H Lactic Acid Calcium 8.1 L Phosphorus Magnesium Total Bilirubin AST ALT Total Creatine Kinase Troponin T C-Reactive Protein Total Protein Albumin HDL Cholesterol Urine Blood Urine WBC (Auto) Urine Creatinine Urine Total Protein 01/14/22 01/14/22 01/14/22 04:20 05:46 11:18 WBC Hgb Hct MCH RDW Lymph % (Auto) Lymph # (Auto) Seg Neutrophils % Seg Neutrophils # PT INR APTT ABG pH ABG pO2 45.7 L ABG HCO3 ABG O2 Saturation 77.6 L ABG Base Excess -2.2 L ABG Hemoglobin 12.2 L Oxyhemoglobin 75.8 L Sodium Potassium Chloride Carbon Dioxide BUN Creatinine Glucose POC Glucose 117 H 127 H Lactic Acid Calcium Phosphorus Magnesium Total Bilirubin AST ALT Total Creatine Kinase Troponin T C-Reactive Protein Total Protein Albumin HDL Cholesterol Urine Blood Urine WBC (Auto) Urine Creatinine Urine Total Protein 01/14/22 01/14/22 01/15/22 13:10 Unknown 04:15 WBC Hgb Hct MCH RDW Lymph % (Auto) Lymph # (Auto) Seg Neutrophils % Seg Neutrophils # PT 49.5 H INR 4.55 H APTT ABG pH ABG pO2 92.1 H 101.6 H ABG HCO3 ABG O2 Saturation ABG Base Excess -2.1 L ABG Hemoglobin 11.6 L 11.2 L Oxyhemoglobin Sodium Potassium Chloride Carbon Dioxide BUN Creatinine Glucose POC Glucose Lactic Acid Calcium Phosphorus Magnesium Total Bilirubin AST ALT Total Creatine Kinase Troponin T C-Reactive Protein Total Protein Albumin HDL Cholesterol Urine Blood Urine WBC (Auto) Urine Creatinine Urine Total Protein 01/15/22 01/15/22 01/15/22 04:45 04:45 04:45 WBC Hgb 11.4 L Hct 35.3 L MCH 27 L RDW 19.6 H Lymph % (Auto) Lymph # (Auto) Seg Neutrophils % Seg Neutrophils # PT 33.5 H INR 2.83 H APTT ABG pH ABG pO2 ABG HCO3 ABG O2 Saturation ABG Base Excess ABG Hemoglobin Oxyhemoglobin Sodium Potassium 3.0 L Chloride Carbon Dioxide BUN 80 H Creatinine 4.5 H Glucose 103 H POC Glucose Lactic Acid Calcium 8.0 L Phosphorus Magnesium Total Bilirubin AST ALT Total Creatine Kinase Troponin T C-Reactive Protein Total Protein Albumin HDL Cholesterol Urine Blood Urine WBC (Auto) Urine Creatinine Urine Total Protein Chest x-ray: image reviewed
--- NOTE | 2022-01-15 18:21 | Progress Note ---
Assessment and Plan Acute kidney injury, cr 2.2-->3.3-->4.9-->5.1-->4.5. Suspect ATN. Hypokalemia Acute hypoxic respiratory failure, status post intubation Shock Ventricular tachycardia Coronary artery disease Congestive heart failure with reduced ejection fraction Elevated LFTs Case discussed in detail with patient today regarding renal disease course Potassium repletion noted Can hold HD today given good UOP and mild improvement in labs Retain catheter for now No proteinuria Ultrasound negative for acute pathology/hydronephrosis/retention Continue sodium bicarb tablets Keep MAP more than 65 Continue Thiamine supplementation Renally dose medications Avoid nephrotoxins Renal diet Subjective Date of service: 01/15/22 Principal diagnosis: Acute respiratory failure, acute on chronic HFrEF, MARCIO Interval history: Seen in ICU. S/p extubation. Objective - Exam Narrative Exam: General: NAD HEENT: Oral mucosa moist Neck: Supple, no JVD Chest: Decreased bibasilar breath sounds Heart: RRR, S1 and S2, no pericardial rub Abdomen: Soft, nontender, no renal bruit Extremity: No peripheral cyanosis, edema Neurological: Alert, awake, no asterixis Dermatology: No skin rash Psych: No agitation Musculoskeletal: No joint effusion - Vital Signs Vital signs: Vital Signs - 12hr 01/15/22 01/15/22 01/15/22 06:30 06:45 07:00 Temperature Pulse Rate 70 71 79 Pulse Rate [ From Monitor] Respiratory 24 22 24 Rate Blood Pressure 137/68 137/68 142/74 O2 Sat by Pulse 91 95 93 Oximetry 01/15/22 01/15/22 01/15/22 07:15 07:31 07:38 Temperature Pulse Rate 73 73 73 Pulse Rate [ From Monitor] Respiratory 24 21 Rate Blood Pressure 142/74 146/73 142/74 O2 Sat by Pulse 95 91 95 Oximetry 01/15/22 01/15/22 01/15/22 07:45 08:00 08:15 Temperature 97.4 F L Pulse Rate 86 84 79 Pulse Rate [ 84 From Monitor] Respiratory 28 H 26 H 24 Rate Blood Pressure 146/73 136/67 136/67 O2 Sat by Pulse 100 98 95 Oximetry 01/15/22 01/15/22 01/15/22 08:30 08:45 09:00 Temperature Pulse Rate 80 81 77 Pulse Rate [ From Monitor] Respiratory 25 H 25 H 24 Rate Blood Pressure 134/66 134/66 137/67 O2 Sat by Pulse 93 95 91 Oximetry 01/15/22 01/15/22 01/15/22 09:15 09:30 09:45 Temperature Pulse Rate 80 73 77 Pulse Rate [ From Monitor] Respiratory 25 H 24 24 Rate Blood Pressure 134/66 138/65 138/65 O2 Sat by Pulse 96 92 95 Oximetry 01/15/22 01/15/22 01/15/22 10:00 10:15 10:30 Temperature Pulse Rate 84 78 81 Pulse Rate [ From Monitor] Respiratory 25 H 25 H 24 Rate Blood Pressure 140/68 140/68 142/68 O2 Sat by Pulse 92 96 93 Oximetry 01/15/22 01/15/22 01/15/22 10:45 11:00 11:15 Temperature Pulse Rate 82 82 74 Pulse Rate [ From Monitor] Respiratory 27 H 26 H 24 Rate Blood Pressure 142/68 147/75 147/75 O2 Sat by Pulse 96 93 95 Oximetry 01/15/22 01/15/22 01/15/22 11:30 11:45 12:00 Temperature 99.2 F Pulse Rate 82 74 79 Pulse Rate [ 84 From Monitor] Respiratory 27 H 24 26 H Rate Blood Pressure 153/80 153/80 139/71 O2 Sat by Pulse 94 96 98 Oximetry 01/15/22 01/15/22 01/15/22 12:15 12:30 12:45 Temperature Pulse Rate 78 72 71 Pulse Rate [ From Monitor] Respiratory 24 25 H 25 H Rate Blood Pressure 139/71 138/71 138/71 O2 Sat by Pulse 96 96 Oximetry 01/15/22 01/15/22 01/15/22 13:00 13:15 13:24 Temperature Pulse Rate 73 74 79 Pulse Rate [ From Monitor] Respiratory 21 24 Rate Blood Pressure 140/70 140/70 O2 Sat by Pulse 93 95 96 Oximetry 01/15/22 01/15/22 01/15/22 13:30 13:45 14:00 Temperature Pulse Rate 78 77 74 Pulse Rate [ From Monitor] Respiratory 27 H 23 21 Rate Blood Pressure 152/80 152/80 151/76 O2 Sat by Pulse 93 96 93 Oximetry 01/15/22 01/15/22 01/15/22 14:15 14:30 14:45 Temperature Pulse Rate 74 80 87 Pulse Rate [ From Monitor] Respiratory 22 20 28 H Rate Blood Pressure 151/76 159/84 159/84 O2 Sat by Pulse 96 92 95 Oximetry 01/15/22 01/15/22 01/15/22 15:00 15:13 15:15 Temperature Pulse Rate 94 H 74 84 Pulse Rate [ From Monitor] Respiratory 26 H 22 Rate Blood Pressure 166/85 151/76 166/85 O2 Sat by Pulse 95 94 97 Oximetry 01/15/22 01/15/22 01/15/22 15:30 15:45 16:00 Temperature 97.6 F Pulse Rate 81 83 78 Pulse Rate [ 84 From Monitor] Respiratory 29 H 29 H 26 H Rate Blood Pressure 158/84 158/84 O2 Sat by Pulse 95 96 98 Oximetry 01/15/22 01/15/22 01/15/22 16:01 16:15 16:30 Temperature Pulse Rate 80 91 H 85 Pulse Rate [ From Monitor] Respiratory 28 H 13 31 H Rate Blood Pressure 154/89 154/89 149/80 O2 Sat by Pulse 93 89 93 Oximetry 01/15/22 01/15/22 01/15/22 16:45 17:00 17:15 Temperature Pulse Rate 83 82 86 Pulse Rate [ From Monitor] Respiratory 15 18 15 Rate Blood Pressure 149/80 155/78 155/78 O2 Sat by Pulse 94 93 95 Oximetry 01/15/22 01/15/22 01/15/22 17:30 17:45 18:00 Temperature Pulse Rate 83 85 84 Pulse Rate [ From Monitor] Respiratory 31 H 16 14 Rate Blood Pressure 160/80 160/80 149/81 O2 Sat by Pulse 91 94 91 Oximetry - Lab 01/15/22 04:45 01/15/22 04:45 Most recent lab results ABG pH 7.432 pH Units (7.350-7.450) 01/15/22 04:15 ABG pCO2 34.4 mm Hg 01/15/22 04:15 ABG pO2 101.6 mm Hg (80.0-90.0) H 01/15/22 04:15 ABG HCO3 22.4 mmol/L (20.0-26.0) 01/15/22 04:15 ABG O2 Saturation 97.8 % (95.0-99.0) 01/15/22 04:15 Calcium 8.0 mg/dL (8.4-10.2) L 01/15/22 04:45 Phosphorus 3.80 mg/dL (2.5-4.5) 01/15/22 04:45 Magnesium 2.00 mg/dL (1.7-2.3) 01/15/22 04:45 Urine Creatinine 224.3 mg/dL (0.1-20.0) H 01/12/22 16:51 Urine Total Protein 105 mg/dL (5-11.8) H 01/12/22 16:51 Medications & Allergies - Medications Allergies/Adverse Reactions: Allergies aspirin Adverse Reaction (Verified 01/10/22 21:41) Unknown patient is taking warfarin and has been advised to not take aspirin Home Medications: Home Medications Medication Instructions Recorded Confirmed Last Taken Type Isosorbide Mononitrate [Isosorbide 30 mg PO DAILY #30 tab.er.24h 08/20/13 01/14/22 01/15/17 08:00 Rx Mononitrate ER] carvediloL [Coreg] 25 mg PO BID #60 tablet 08/20/13 01/14/22 09/22/18 Rx Furosemide [Lasix] 40 mg PO DAILY #30 tablet 09/17/13 01/14/22 01/15/17 08:00 Rx AtorvaSTATin [Lipitor] 80 mg PO QHS #30 tablet 01/19/17 01/14/22 Unknown Rx amLODIPine 10 mg PO DAILY 09/23/18 01/14/22 09/22/18 History cloNIDine-TTS PATCH [Catapres-Tts 1 patch TD Q7D 09/23/18 01/14/22 09/21/18 History 0.1MG Patch] hydrALAZINE [Apresoline TAB] 50 mg PO TID 09/23/18 01/14/22 09/22/18 History metFORMIN [Glucophage] 500 mg PO BID 09/23/18 01/14/22 Unknown History Potassium Chloride [K-Dur] 10 meq PO QDAY 03/28/19 01/14/22 Unknown History Warfarin [Coumadin] 2.5 mg PO QDAY 03/28/19 01/14/22 Unknown History ISOSORBIDE MONOnitrate [Imdur ER] 30 mg PO QDAY #30 tablet 03/29/19 01/14/22 Unknown Rx Warfarin [Coumadin] 7.5 mg PO DAILY@1700 tablet 03/30/19 01/14/22 Unknown Rx Active Medications: Generic Name Dose Route Start Last Admin Trade Name Freq PRN Reason Stop Dose Admin Acetaminophen 650 mg 01/10/22 23:49 Acetaminophen 325 Mg Tab PO Q6H PRN Pain MILD(1-3)/Fever >100.5/NÚÑEZ Albuterol 2.5 mg 01/11/22 00:19 Albuterol 2.5 Mg/3 Ml Nebu IH Q4HRT PRN Shortness Of Breath Amiodarone HCl 200 mg 01/15/22 22:00 Amiodarone 200 Mg Tab PO BID SHAKEEL Atorvastatin Calcium 80 mg 01/11/22 22:00 01/14/22 21:28 Atorvastatin 40 Mg Tab FEEDTUBE 80 mg QHS SHAKEEL Administration Dextrose 50 ml 01/10/22 23:49 Dextrose 50% In Water (25gm) 50 Ml Syringe IV Q30MIN PRN Hypoglycemia Protocol Famotidine 10 mg 01/13/22 11:00 01/15/22 09:49 Famotidine 10 Mg Tab FEEDTUBE 10 mg BID SHAKEEL Administration Fentanyl 50 mcg 01/11/22 09:28 01/14/22 11:11 Fentanyl 100 Mcg/2 Ml Inj IV 50 mcg Q10MIN PRN Administration ANALGESIA Hydrophilic Ointment 1 applic 01/12/22 09:02 Lip Therapy Vaseline TP Q2HR PRN Dry Lips Propofol 1,000 mg in 100 mls @ 3.538 mls/hr 01/11/22 10:00 01/15/22 13:30 Diprivan 10 Mg/Ml IV 7 mcg/kg/min TITR SHAKEEL 4.953 mls/hr Titration Protocol 5 MCG/KG/MIN Fentanyl Citrate 2,000 mcg in 100 mls @ 5.897 mls/hr 01/11/22 10:00 Fentanyl Drip Premix IV TITR SHAKEEL Protocol 1 MCG/KG/HR Vasopressin 20 unit/ Sodium 101 mls @ 9.09 mls/hr 01/11/22 14:00 01/12/22 16:04 Chloride IV 0 units/min TITR SHAKEEL 0 mls/hr Titration Protocol 0.03 UNITS/MIN NORepinephrine/NS 8 MG-250 ML 8 mg in 250 mls @ 3.75 mls/hr 01/11/22 14:00 01/12/22 17:22 Norepinephrine/Ns 8 Mg-250 Ml (Double Conc) IV 0 mcg/min TITRATE SHAKEEL 0 mls/hr Titration Protocol 2 MCG/MIN Dobutamine HCl/Dextrose 500 mg in 250 mls @ 8.845 mls/hr 01/13/22 12:00 01/14/22 12:21 Dobutrex Drip 500mg/D5w 250ml IV 2.5 mcg/kg/min DIRECT SHAKEEL 8.845 mls/hr Administration Protocol 2.5 MCG/KG/MIN Sodium Chloride 100 mls @ 999 mls/hr 01/14/22 19:45 [address]acl 0.9% IV LANE PRN Hypotension Insulin Human Lispro 0 unit 01/11/22 12:00 01/15/22 12:14 Insulin Lispro 100 Unit/Ml SUB-Q Not Given Q6HR [facility] Protocol Magnesium Hydroxide 30 ml 01/10/22 23:49 Magnesium Hydroxide (Mom) Oral Liqd Udc PO Q4H PRN Constipation Multi-Ingred Cream/Lotion/Oil/Oint 1 applic 01/12/22 09:02 Mineral Oil/Petrolatum, White Ophth Oint 3.5 Gm OU Q4HR PRN Dry Eye(s) Ondansetron HCl 4 mg 01/10/22 23:49 Ondansetron 4 Mg/2 Ml Inj IV Q8H PRN Nausea And Vomiting Senna/Docusate Sodium 1 tab 01/12/22 10:00 01/15/22 09:51 Sennosides/Docusate Sodium 8.6/50 Mg Tab FEEDTUBE Not Given BID SHAKEEL Sodium Bicarbonate 1,300 mg 01/13/22 14:00 01/15/22 17:41 Sodium Bicarbonate 650 Mg Tab PO Not Given TID SHAKEEL Sodium Chloride 10 ml 01/11/22 10:00 01/15/22 09:51 Sodium Chloride 0.9% 10 Ml Flush Syringe IV 10 ml BID SHAKEEL Administration Sodium Chloride 10 ml 01/10/22 23:49 Sodium Chloride 0.9% 10 Ml Flush Syringe IV PRN PRN LINE FLUSH Thiamine HCl 100 mg 01/13/22 10:00 01/15/22 09:49 Thiamine 100 Mg Tab FEEDTUBE 100 mg QDAY SHAKEEL Administration
[2022-01-15] MEDS: AMIODARONE 200 MG TAB PO SCH (21:29)
[2022-01-16] MEDS: INSULIN LISPRO 100 UNIT/ML SUB-Q SCH ×5 (00:36→22:26)
--- NOTE | 2022-01-16 04:33 | XRay Report ---
CHEST 1 VIEW 01/16/2022 2:15 AM INDICATION / CLINICAL INFORMATION: follow up respiratory failure. COMPARISON: Previous day. FINDINGS: SUPPORT DEVICES: ICD unchanged. HEART / MEDIASTINUM: Stable. LUNGS / PLEURA: No right-sided infiltrate. Opacity at the left base has improved. No new left-sided a bnormality. No pneumothorax. ADDITIONAL FINDINGS: No significant additional findings. IMPRESSION: Improving aeration left base. Signer Name: Jose Maria Dumont MD Signed: 01/16/2022 4:29 AM Workstation Name: [id number]
[2022-01-16 05:21] LABS: Hematocrit 33.1 % (35.5-45.6); Hemoglobin 10.8 gm/dl (11.8-15.2); Mean Corpuscular HGB Conc 33 % (32-34); Mean Corpuscular Volume 85 fl (84-94); Platelet Count 165 K/mm3 (140-440); Red Cell Distribution Width 19.3 % (13.2-15.2)
[2022-01-16 05:40] LABS: INR 1.78 (0.87-1.13)
[2022-01-16] MEDS: SODIUM BICARBONATE 650 MG TAB PO SCH ×3 (08:33→22:14)
[2022-01-16] MEDS ORDERED: POTASSIUM CHLORIDE ER 20 MEQ TAB PO ONE (08:51)
[2022-01-16] MEDS: AMIODARONE 200 MG TAB PO SCH ×2 (09:40→22:14)
[2022-01-16] MEDS: THIAMINE 100 MG TAB FEEDTUBE SCH (09:40)
[2022-01-16] MEDS: FAMOTIDINE 10 MG TAB FEEDTUBE SCH ×2 (09:40→22:14)
--- NOTE | 2022-01-16 10:44 | Progress Note ---
Assessment and Plan This is a 56-year-old -[place] male, who follows with Dr. KURTIS Ferrer, with past medical history of aortic regurgitation, non-obstructive CAD (via [facility] 2009) HFrEF, diabetes, hyperlipidemia, hypertension, s/p BI-V ICD ([employer]) Acute on chronic HFrEF Acute Pulmonary edema - copious pink, frothy sputum noted on intubation Acute Hypoxic Respiratory Failure-extubated S/p ICD shock MARCIO-nephrology following Mildly elevated troponin- likely 2/2 to acutely decompensated HF/pulmonary edema/ICD shocks Hyperlipidemia Hypertension DM - mangement per primary team S/p Bi-V ICD ([employer]) H/o Stroke (OAC with Coumadin since 11/2020) H/o Prostate CA (2020) Home medications: Amlodipine 5 mg p.o. daily, atorvastatin 80 mg p.o. nightly, clonidine 0.1 mg transdermal patch q. 7 days, carvedilol 25 mg p.o. twice daily, hydralazine 50 mg p.o. 3 times daily, Imdur 30 mg p.o. every morning, Lasix 40 mg p.o. daily, metformin 500 mg p.o. twice daily, warfarin 5 mg tablet p.o. daily. Echocardiogram 03/2019: Mild to moderate concentric LV hypertrophy is observed. The LV size is moderate to severely dilated. RV global systolic function is mildly reduced. Mild aortic regurgitation. RV systolic pressure is calculated at 21 mmHg. Global LV systolic function is severely decreased. Estimated EF is 20 to 25%. Cath- 05/2010 at [facility]: Nonobstructive CAD Echo 01/11/2022-EF 10 to 15%. LV is severely dilated. Severe global hypokinesis of LV. Left ventricular diastolic function is indeterminate. Right ventricle is dilated. Right ventricle is hypokinetic. Left atrium is mildly dilated. Trace to mild aortic regurgitation. Mild mitral regurgitation. Mild tricuspid regurgitation. IVC is dilated. IVC collapses with less than 50% of inspiration rec: Patient has been extubated not on IV diuretics on carvedilol and dobutamine. We will continue dobutamine in view of improvement in renal function and output will hold for tomorrow monitor output and renal function. Continue oral amiodarone. Patient will get out of the bed to the chair and physical therapy Subjective Date of service: 01/16/22 Principal diagnosis: Acute respiratory failure, acute on chronic HFrEF, MARCIO Interval history: pt extubated and sob is better Objective Vital Signs Temp Pulse Pulse Resp BP Pulse Ox 01/16/22 10:00 72 20 135/69 95 01/16/22 09:01 85 27 H 127/80 94 01/16/22 08:48 96 01/16/22 08:00 98.2 F 78 20 170/75 96 01/16/22 07:14 98.3 F 01/16/22 07:00 81 24 170/75 94 01/16/22 06:26 96 01/16/22 06:00 73 15 158/72 96 01/16/22 05:01 70 16 141/61 94 01/16/22 04:45 77 24 139/59 97 01/16/22 04:00 97 F L 82 20 144/72 95 01/16/22 03:00 67 18 150/70 95 01/16/22 02:00 74 24 130/61 95 01/16/22 01:00 77 22 132/60 94 01/16/22 00:00 72 13 138/72 95 01/15/22 23:47 98.3 F 01/15/22 23:45 82 25 H 116/63 97 01/15/22 23:35 84 29 H 125/60 94 01/15/22 23:00 86 10 L 125/60 94 01/15/22 22:13 95 01/15/22 22:00 84 27 H 137/72 94 01/15/22 21:00 91 H 29 H 155/76 94 01/15/22 20:00 99.1 F 83 20 153/81 95 01/15/22 19:00 88 29 H 162/84 91 01/15/22 18:00 84 14 149/81 91 01/15/22 17:45 85 16 160/80 94 01/15/22 17:30 83 31 H 160/80 91 01/15/22 17:15 86 15 155/78 95 01/15/22 17:00 82 18 155/78 93 01/15/22 16:45 83 15 149/80 94 01/15/22 16:30 85 31 H 149/80 93 01/15/22 16:15 91 H 13 154/89 89 01/15/22 16:01 80 28 H 154/89 93 01/15/22 16:00 97.6 F 78 84 26 H 98 01/15/22 15:45 83 29 H 158/84 96 01/15/22 15:30 81 29 H 158/84 95 01/15/22 15:15 84 22 166/85 97 01/15/22 15:13 74 151/76 94 01/15/22 15:00 94 H 26 H 166/85 95 01/15/22 14:45 87 28 H 159/84 95 01/15/22 14:30 80 20 159/84 92 01/15/22 14:15 74 22 151/76 96 01/15/22 14:00 74 21 151/76 93 01/15/22 13:45 77 23 152/80 96 01/15/22 13:30 78 27 H 152/80 93 01/15/22 13:24 79 96 01/15/22 13:15 74 24 140/70 95 01/15/22 13:00 73 21 140/70 93 01/15/22 12:45 71 25 H 138/71 96 01/15/22 12:30 72 25 H 138/71 01/15/22 12:15 78 24 139/71 96 01/15/22 12:00 99.2 F 79 84 26 H 139/71 98 01/15/22 11:45 74 24 153/80 96 01/15/22 11:30 82 27 H 153/80 94 01/15/22 11:15 74 24 147/75 95 01/15/22 11:00 82 26 H 147/75 93 01/15/22 10:45 82 27 H 142/68 96 - Physical Examination General: Other (Intubated) HEENT: Positive: PERRL Neck: Positive: trachea midline Cardiac: Positive: Reg Rate and Rhythm Lungs: Positive: clear to auscultation Neuro: Positive: Other (Somnolent. Will ) Abdomen: Positive: Active Bowel Sounds Skin: Negative: Rash Extremities: Present: Cool. Absent: edema (ble) - Labs and Meds Coagulation 01/16/22 Range/Units 05:10 PT 22.9 H (12.2-14.9) Sec. INR 1.78 H (0.87-1.13) Lipids 01/15/22 Range/Units 04:45 Triglycerides 92 (2-149) mg/dL CBC 01/16/22 Range/Units 05:10 WBC 7.3 (4.5-11.0) K/mm3 RBC 3.90 (3.65-5.03) M/mm3 Hgb 10.8 L (11.8-15.2) gm/dl Hct 33.1 L (35.5-45.6) % Plt Count 165 (140-440) K/mm3 Comprehensive Metabolic Panel 01/16/22 Range/Units 05:10 Sodium 144 (137-145) mmol/L Potassium 3.2 L (3.6-5.0) mmol/L Chloride 107.6 H (98-107) mmol/L Carbon Dioxide 26 (22-30) mmol/L BUN 68 H (9-20) mg/dL Creatinine 3.4 H (0.8-1.3) mg/dL Glucose 90 (75-100) mg/dL Calcium 8.0 L (8.4-10.2) mg/dL - Imaging and Cardiology EKG: report reviewed, image reviewed Echo: report reviewed - Telemetry EKG Rhythm: Paced - EKG Sinus rhythms and dysrhythmias: sinus rhythm (RBBB)
--- NOTE | 2022-01-16 11:25 | Progress Note ---
Assessment and Plan Assessment and plan: This is a 56-year-old AA male with known past medical history of NM, aortic regurgitation, non-obstructive CAD, HFrEF, s/p AICD, diabetes, hyperlipidemia, and hypertension admitted for AICD discharge. Decompensated in the ED s/p emergent intubation now on ventilatory support, in fulminant pulmonary edema. Hospital Course to Date: 01/11: S/p emergent intubation by the ED physician due to increase WOB, tachypnea, and lethagy. [place] frothy sputum noted in ETT, fulminant pulmonary edema. Additional 40mg Iv lasix administered. Patient is Currently on high vent setting, 100% Fio2 and 16 of Peep. SPO2 remains labile, repeat ABG pending. CCM on consult for vent management. ST with BBB noted on the monitor, on amiodarone gtt for VTach per Cardio, VSS, echo pending. Monitor electrolytes and replete as needed. 01/12: Stable on the vent this am. This am ABG and Cxr noted. Now on pressors for hypotension, remains on amiodarone gtt. Accelerated junctional rhythm noted on the monitor this am, Dobutamine gtt held. 2D Echo pending. With worsen renal function this am, now oliguric, only 200cc in last 24hrs. IV lasix held, Nephrology consulted. Patient remains coagulopathic, per records patient was on Coumadin at home. INR 3.09 this am, Hold AC for now. 01/13: Remains stable on the vent, down to 50% Fio2 and 8 of peep this am. Plan for SAT trial this am to assess mentation, plan for possible PSV trial in the am. Patient is off pressors this am, remains on Amio gtt. Remains in a junctional rhythm with frequent ectopy. Enteral nutrition initiated. Remains oliguric with worsening renal function, awaiting Nephrology final recs. 8: Following commands this am, continue vent wean for PSV trial later on today or tomorrow. Remains on Amio gtt, back on dobutamine gtt per Cardio, EF 10- to 15%. Patient remains afebrile and off pressors, VSS, cultures with NGTD. IV Abx D/C for now. With worsen renal function this am, but making urine this am. Awaiting Nephro recs. Continue to monitor PT/INR and for s/s of any active bleeding. Continue to hold AC for now. 01/15: Remains on Amio and dobutamine gtt, stable on th event, following commands. Plan for PSV trial this am for possible extubation. Good UOP in last 24hrs, mild improvement in renal function. Trialysis cath inserted, possible HD per Nephro. D/w Cardio keep dobutamine gtt for another 24 to 48hrs, D/C amio gtt and tr ansition to PO amio BID. Monitor and repleted electrolytes as needed. 01/16: S/p extubation, stable on 3L NC this am, OOB to chair. Remains on dobutamine gtt for one more day per Cardio. Renal function continue to improve with good urine output. INR down to 1.78 this am, will resume home coumadin, INR goal 2 to 3. PT/OT/Speech consulted. Assessment and Plan #Acute Hypoxic Respiratory Failure #Fulminant Pulmonary Edema-improved #Possible CAP - Emergently intubated in the ED on 01/11 due to increase WOB, tachypnea, and lethagy - [place] frothy sputum noted in ETT - CXR noted, suggesting pulmonary edema but can't exclude infectious Etiology - 01/15 s/p extubation, stable on 3L NC this am - Repeat CXR with resolution of the bilateral pulmonary edema or infiltrates - CCM consulted, appreciate recommendations - Continue to wean vent per CCM - VAP bundle addressed - Aspiration precaution HOB above 30 - Daily SBT and SAT trials as tolerated - Daily ABG and CXR - Continue SPO2 monitoring for SPO2 goal above 92% #Ventricular Tachycardia #Implantable Cardioverter-Defibrillator (ICD) discharge #CAD (Coronary Artery Disease) #Congestive Heart Failure with Reduce EF #Elevated troponin #HTN (Hypertension) - Presented with Chest pain - Went into in V.TACH in the ED, AICD discharged - Troponin are elevated X2, probably due to demand ischemia - [address] with RBBB - 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 Left ventricular systolic function is severely decreased. There is severe global hypokinesis of the left ventricle. LVEF is 10-15%. The left ventricular diastolic function is indeterminate. - S/p Amio gtt, now on PO amio - Remains on dobutamine gtt - D/w Cardio keep dobutamine gtt for another 24hrs - Lasix held due to worsen renal function - Cardiology on consult, appreciated recommendations - Continue blood pressure monitor per protocol - Maintain MAP above 65 - INR less than 2. Resume home coumadin. INR goal 2 to 3 #Acute Kidney Injury(MARCIO) #Hypokalemia - mild increased in scr. this am, most likely prerenal - IV lasix held - UOP and renal function improved - Trialysis cath inserted for possible HD per Nephro - Nephrology consulted - Continue to trend BMP - Strict intake and output - Avoid nephrotoxic medications - Monitor and replace electrolytes as needed #Possible CAP - Presented with high fevers TMAX 101.1 - CXR noted, suggesting pulmonary edema but can't exclude infectious Etiology - COVID PCR negative - Blood cultures, UA, and sputum culture with NGTD - Empiric IV Abx held - F/u on cultures - Daily CBC monitor - Consider ID consult if febrile and if leukocytosis occur #Supratherapeutic INR - Patient was on coumadin at home due to recurrent CVA - No s/s of any active bleeding, no reversal warranted - INR less than 2. Resume home coumadin. INR goal 2 to 3 - Continue to trend PT/INR #Type 2 Diabetes Mellitus - BG check and SSI Q6hrs - Avoid hypoglycemia - While critically ill target blood glucose of 140-180 #GI/DVT Prophylaxis - PPI- Pepcid - Home coumadin resumed - SCDs to bilateral lower extremities while in bed #Advance Care Planning - Disease education data, care plan, diagnoses, and prognosis were discussed with patient's at the bedside. Patient is a FULL code. Patient's acknowledged understanding and agreement with current care plan. The high probability of a clinically significant, sudden or life threatening deterioration of the [multiple] system(s) required my full and direct attention, intervention and personal management. The aggregate critical care time was [60] minutes. This time is in addition to time spent performing reported procedures but includes the following: [x] Data Review and interpretation [x] Patient assessment and monitoring of vital signs [x] Documentation [x] Medication orders and management Disposition Plan: ICU Total Time Spent with Patient (Minutes): 60 History Interval history: Patient seen and examined in the bedside.S/p extubation, stable on 3L NC this am, fully AAO, OOB to the chair. Remains on dobutamine. Still with good urine output. JEREMY overnight Hospitalist Physical - Constitutional Vitals: Temp Pulse Resp BP Pulse Ox 98.2 F 72 20 135/69 95 01/16/22 08:00 01/16/22 10:00 01/16/22 10:00 01/16/22 10:00 01/16/22 10:00 General appearance: Present: no acute distress, well-nourished, obese - EENT Eyes: Present: PERRL, EOM intact ENT: hearing intact, clear oral mucosa - Neck Neck: Present: normal ROM - Respiratory Respiratory effort: normal Respiratory: bilateral: diminished - Cardiovascular Rhythm: regularly irregular Heart Sounds: Present: S1 & S2 - Extremities Extremities: no ischemia, pulses intact, pulses symmetrical Peripheral Pulses: within normal limits - Abdominal General gastrointestinal: soft, non-distended, normal bowel sounds - Integumentary Integumentary: Present: warm, dry - Psychiatric Psychiatric: appropriate mood/affect, cooperative - Neurologic Neurologic: CNII-XII intact, moves all extremities - Allied Health Allied health notes reviewed: nursing, case management HEART Score - HEART Score EKG: Non-specific Age: 45-65 Risk factors: > 3 risk factors or hx of atherosclerotic disease Troponin: Troponin T 0.075 ng/mL (0.00-0.029) H D 01/11/22 04:20 Troponin: 1-3x normal limit - Critical Actions Critical Actions: 4-6 pts:12-16.6% risk of adverse cardiac event. Should be admitted Results - Labs CBC & Chem 7: 01/16/22 05:10 01/16/22 05:10 Labs: Laboratory Last Values WBC 7.3 K/mm3 (4.5-11.0) 01/16/22 05:10 RBC 3.90 M/mm3 (3.65-5.03) 01/16/22 05:10 Hgb 10.8 gm/dl (11.8-15.2) L 01/16/22 05:10 Hct 33.1 % (35.5-45.6) L 01/16/22 05:10 MCV 85 fl (84-94) 01/16/22 05:10 MCH 28 pg (28-32) 01/16/22 05:10 MCHC 33 % (32-34) 01/16/22 05:10 RDW 19.3 % (13.2-15.2) H 01/16/22 05:10 Plt Count 165 K/mm3 (140-440) 01/16/22 05:10 Lymph % (Auto) 5.0 % (13.4-35.0) L 01/13/22 08:28 [place] % (Auto) 6.5 % (0.0-7.3) 01/13/22 08:28 Eos % (Auto) 0.1 % (0.0-4.3) 01/13/22 08:28 Baso % (Auto) 0.2 % (0.0-1.8) 01/13/22 08:28 Lymph # (Auto) 0.6 K/mm3 (1.2-5.4) L 01/13/22 08:28 [place] # (Auto) 0.8 K/mm3 (0.0-0.8) 01/13/22 08:28 Eos # (Auto) 0.0 K/mm3 (0.0-0.4) 01/13/22 08:28 Baso # (Auto) 0.0 K/mm3 (0.0-0.1) 01/13/22 08:28 Seg Neutrophils % 88.2 % (40.0-70.0) H 01/13/22 08:28 Seg Neutrophils # 10.6 K/mm3 (1.8-7.7) H 01/13/22 08:28 PT 22.9 Sec. (12.2-14.9) H 01/16/22 05:10 INR 1.78 (0.87-1.13) H 01/16/22 05:10 APTT 38.8 Sec. (24.2-36.6) H 01/10/22 21:47 ABG pH 7.432 pH Units (7.350-7.450) 01/15/22 04:15 ABG pCO2 34.4 mm Hg 01/15/22 04:15 ABG pO2 101.6 mm Hg (80.0-90.0) H 01/15/22 04:15 ABG HCO3 22.4 mmol/L (20.0-26.0) 01/15/22 04:15 ABG O2 Saturation 97.8 % (95.0-99.0) 01/15/22 04:15 ABG O2 Content 15.2 (0.0-44) 01/15/22 04:15 ABG Base Excess -1.4 mmol/L (-2.0-3.0) 01/15/22 04:15 ABG Hemoglobin 11.2 gm/dl (14.0-18.0) L 01/15/22 04:15 ABG Carboxyhemoglobin 1.5 % (0.0-5.0) 01/15/22 04:15 ABG Methemoglobin 0.6 % (0.0-1.5) 01/15/22 04:15 Oxyhemoglobin 95.8 % (95.0-99.0) 01/15/22 04:15 FiO2 35 % 01/15/22 04:15 Sodium 144 mmol/L (137-145) 01/16/22 05:10 Potassium 3.2 mmol/L (3.6-5.0) L 01/16/22 05:10 Chloride 107.6 mmol/L (98-107) H 01/16/22 05:10 Carbon Dioxide 26 mmol/L (22-30) 01/16/22 05:10 Anion Gap 14 mmol/L 01/16/22 05:10 BUN 68 mg/dL (9-20) H 01/16/22 05:10 Creatinine 3.4 mg/dL (0.8-1.3) H 01/16/22 05:10 Estimated GFR 23 ml/min 01/16/22 05:10 BUN/Creatinine Ratio 20 % 01/16/22 05:10 Glucose 90 mg/dL (75-100) 01/16/22 05:10 POC Glucose 88 mg/dL (70-105) 01/15/22 23:45 Lactic Acid 4.00 mmol/L (0.7-2.0) H* 01/12/22 15:23 Calcium 8.0 mg/dL (8.4-10.2) L 01/16/22 05:10 Phosphorus 3.80 mg/dL (2.5-4.5) 01/15/22 04:45 Magnesium 2.00 mg/dL (1.7-2.3) 01/15/22 04:45 Total Bilirubin 1.00 mg/dL (0.1-1.2) 01/12/22 08:57 AST 73 units/L (5-40) H 01/12/22 08:57 ALT 79 units/L (7-56) H 01/12/22 08:57 Alkaline Phosphatase 50 units/L (35-129) 01/12/22 08:57 Total Creatine Kinase 202 units/L (55-170) H 01/12/22 15:23 Troponin T 0.075 ng/mL (0.00-0.029) H D 01/11/22 04:20 C-Reactive Protein 13.20 mg/dL (0.00-1.30) H 01/12/22 05:10 Total Protein 6.2 g/dL (6.3-8.2) L 01/12/22 08:57 Albumin 3.3 g/dL (3.9-5) L 01/12/22 08:57 Albumin/Globulin Ratio 1.1 % 01/12/22 08:57 Triglycerides 92 mg/dL (2-149) 01/15/22 04:45 Cholesterol 113 mg/dL (50-199) 01/10/22 21:47 LDL Cholesterol Direct 72 mg/dL (50-130) 01/10/22 21:47 HDL Cholesterol 35 mg/dL (40-59) L 01/10/22 21:47 Cholesterol/HDL Ratio 3.22 % 01/10/22 21:47 Procalcitonin 42.50 ng/mL (<0.15) 01/12/22 05:10 Urine Color Yellow (Yellow) 01/12/22 16:51 Urine Turbidity Cloudy (Clear) 01/12/22 16:51 Urine pH 5.0 (5.0-7.0) 01/12/22 16:51 Ur Specific [place] 1.030 (1.003-1.030) 01/12/22 16:51 Urine Protein 30 mg/dl mg/dL (Negative) 01/12/22 16:51 Urine Glucose (UA) Negative mg/dL (Negative) 01/12/22 16:51 Urine Ketones Negative mg/dL (Negative) 01/12/22 16:51 Urine Blood Large (Negative) A 01/12/22 16:51 Urine Nitrite Negative (Negative) 01/12/22 16:51 Ur Reducing Substances Not Reportable 01/12/22 16:51 Urine Bilirubin Negative (Negative) 01/12/22 16:51 Urine Ictotest Not Reportable 01/12/22 16:51 Urine Urobilinogen 0.0 mg/dL (<2.0) 01/12/22 16:51 Ur Leukocyte Esterase Trace (Negative) 01/12/22 16:51 Urine WBC (Auto) 85.0 /HPF (0.0-6.0) H 01/12/22 16:51 Urine RBC (Auto) > 182.0 /HPF (0.0-6.0) 01/12/22 16:51 U Epithel Cells (Auto) 1.0 /HPF (0-13.0) 01/12/22 16:51 Urine WBC Clumps 1+ /HPF 01/12/22 16:51 Hyaline Casts 21 /LPF 01/12/22 16:51 Urine Mucus Few /HPF 01/12/22 16:51 Urine Yeast (Budding) Few /HPF 01/12/22 16:51 Urine Creatinine 224.3 mg/dL (0.1-20.0) H 01/12/22 16:51 Protein/Creatinin Ratio 0.47 01/12/22 16:51 Urine Total Protein 105 mg/dL (5-11.8) H 01/12/22 16:51 Coronavirus (PCR) Negative (Negative) 01/11/22 15:45 Hepatitis A IgM Ab Non-reactive (NonReactive) 01/15/22 04:45 Hep Bs Antigen Non-reactive (Negative) 01/15/22 04:45 Hep B Core IgM Ab Non-reactive (NonReactive) 01/15/22 04:45 Hepatitis C Antibody Non-reactive (NonReactive) 01/15/22 04:45 Blood Type B POSITIVE 01/10/22 21:47 Antibody Screen Negative 01/10/22 21:47 Microbiology: Microbiology 01/11/22 19:41 Peripheral/Venous Blood Culture - Preliminary NO GROWTH AFTER 4 DAYS 01/11/22 19:41 Peripheral/Venous Blood Culture - Preliminary NO GROWTH AFTER 4 DAYS [place]/IV: Voiding Method Indwelling Catheter Active Medications - Current Medications Current Medications: Generic Name Dose Route Start Last Admin Trade Name Freq PRN Reason Stop Dose Admin Acetaminophen 650 mg 01/10/22 23:49 Acetaminophen 325 Mg Tab PO Q6H PRN Pain MILD(1-3)/Fever >100.5/[id number] Albuterol 2.5 mg 01/11/22 00:19 Albuterol 2.5 Mg/3 Ml Nebu IH Q4HRT PRN Shortness Of Breath Amiodarone HCl 200 mg 01/15/22 22:00 01/16/22 09:40 Amiodarone 200 Mg Tab PO 200 mg BID SHAKEEL Administration Atorvastatin Calcium 80 mg 01/11/22 22:00 01/15/22 21:29 Atorvastatin 40 Mg Tab FEEDTUBE 80 mg QHS SHAKEEL Administration Dextrose 50 ml 01/10/22 23:49 Dextrose 50% In Water (25gm) 50 Ml Syringe IV Q30MIN PRN Hypoglycemia Protocol Famotidine 10 mg 01/13/22 11:00 01/16/22 09:40 Famotidine 10 Mg Tab FEEDTUBE 10 mg BID SHAKEEL Administration Hydrophilic Ointment 1 applic 01/12/22 09:02 Lip Therapy Vaseline TP Q2HR PRN Dry Lips Dobutamine HCl/Dextrose 500 mg in 250 mls @ 8.845 mls/hr 01/13/22 12:00 01/14/22 12:21 Dobutrex Drip 500mg/D5w 250ml IV 2.5 mcg/kg/min DIRECT SHAKEEL 8.845 mls/hr Administration Protocol 2.5 MCG/KG/MIN Sodium Chloride 100 mls @ 999 mls/hr 01/14/22 19:45 Nacl 0.9% IV LANE PRN Hypotension Insulin Human Lispro 0 unit 01/11/22 12:00 01/16/22 05:46 Insulin Lispro 100 Unit/Ml SUB-Q Not Given Q6HR [facility] Protocol Magnesium Hydroxide 30 ml 01/10/22 23:49 Magnesium Hydroxide (Mom) Oral Liqd Udc PO Q4H PRN Constipation Multi-Ingred Cream/Lotion/Oil/Oint 1 applic 01/12/22 09:02 Mineral Oil/Petrolatum, White Ophth Oint 3.5 Gm OU Q4HR PRN Dry Eye(s) Ondansetron HCl 4 mg 01/10/22 23:49 01/15/22 21:41 Ondansetron 4 Mg/2 Ml Inj IV 4 mg Q8H PRN Administration Nausea And Vomiting Senna/Docusate Sodium 1 tab 01/12/22 10:00 01/15/22 23:37 Sennosides/Docusate Sodium 8.6/50 Mg Tab FEEDTUBE Not Given BID SHAKEEL Sodium Bicarbonate 1,300 mg 01/13/22 14:00 01/16/22 08:33 Sodium Bicarbonate 650 Mg Tab PO 1,300 mg TID SHAKEEL Administration Sodium Chloride 10 ml 01/11/22 10:00 01/16/22 09:43 Sodium Chloride 0.9% 10 Ml Flush Syringe IV 10 ml BID SHAKEEL Administration Sodium Chloride 10 ml 01/10/22 23:49 Sodium Chloride 0.9% 10 Ml Flush Syringe IV PRN PRN LINE FLUSH Thiamine HCl 100 mg 01/13/22 10:00 01/16/22 09:40 Thiamine 100 Mg Tab FEEDTUBE 100 mg QDAY SHAKEEL Administration Nutrition/Malnutrition Assess - Dietary Evaluation Nutrition/Malnutrition Findings: Nutrition Notes Start: 01/11/22 12:57 Freq: Status: Active Protocol: Document 01/14/22 11:50 AIMEE (Rec: 01/14/22 12:00 AIMEE [id number]) Nutrition Notes Initial or Follow up Brief Note Current Diet TF - Vital AF 1.2 at 60ml/hr Labs/Tests K 3.5 BUN 81 Cr 5.2 Pertinent Medications Propofol at 14.16ml/hr ( provides 374 kcal), Thiamine Height 5 ft 9 in Weight 117.934 kg [place] Body Weight (kg) 72.72 BMI 38.4 Weight Status Obese Subjective/Other Information Pt remains on vent support. Observed TF infusing at 50ml/ hr; per RN, pt tolerating TF so far. Per nephrology, no need for dialysis at this time , however, he may need it if renal function starts to decline. Percent of energy/protein needs met: 60% energy 100% pro Burn Absent Trauma Absent #1 Nutrition Diagnosis Inadequate oral intake Diagnosis Progress(for reassessment Continues documentation) Is patient on ventilator? Yes Is Patient Ambulatory and/or Out of Bed No REE-([facility]-confined to bed) [phone] Kcal/Kg value to use for calculation 16 Approximate Energy Requirements Using 1887 kcal/Kg Calculation Used for Recommendations Kcal/kg Additional Notes Pro needs 0.8-1.2g/kg adjBW: 76-114g/day Fluid needs 1ml/kcal Nutrition Intervention Nutrition Support: Increase TF rate to Vital AF 1 .2 at 60ml/hr. Provide 100ml water flush q4h. Kcal 1,728 Protein (gm) 108 Carbohydrates (gm) 159 Fat (gm) 78 Fluid (mL) 1,168 Fiber (gm) 7 Goal #1 TF tolerance Goal #2 TF to meet 65-70% energy and at least 75% pro needs Follow-Up By: 01/17/22 Additional Comments F/U: TF goal rate/tolerance, vent status, renal function, propofol
[2022-01-16] MEDS: SENNOSIDES/DOCUSATE SODIUM 8.6/50 MG TAB FEEDTUBE SCH (13:25)
--- NOTE | 2022-01-16 15:13 | Progress Note ---
Assessment and Plan Acute Hypoxic Respiratory Failure s/p MVS Fulminant Pulmonary Edema/ Possible CAP Ventricular Tachycardia - Implantable Cardioverter-Defibrillator (ICD) discharge CAD (Coronary Artery Disease) Congestive Heart Failure with Reduce EF h/o HTN (Hypertension) Acute Kidney Injury(MARCIO) Hypokalemia-improved Possible CAP Type 2 Diabetes Mellitus -Remains on Dobutamine, plan to discontinue it in the morning -Titrate supplemental oxygen oxygen for SpO2 89-92% -CXR, ABG as clinically indicated -BIPAP qhs and prn -Continue to monitor renal function, hemodynamics and electrolyte profile -Avoid nephrotoxins, adjust all medications for GFR and CrCL -Bustamante catheter- can discontinue Bustamnate catheter in the morning -Can discontinue Femoral Vascath in yan morning -Replete electrolytes as clinically indicated -Accuchecks with glycemic control, target blood glucose 140-180 mg/dL. Avoid hypoglycemia -VTE prophylaxis-INR is <2, will resume Coumadin with goal INR of 2-3 -Stress ulcer prophylaxis-Famotidine -Mobility, frequent turning, off loading per facility protocol to prevent pressure ulcers -PT/OT, increase activity as tolerated -Maintain sleep wake cycle, avoid benzodiazepines. -Limit delirium -Supportive blood transfusion, keep HgB>7g/dL Needs pulmonary outpatient follow up post discharge- need sleep evaluation Can transfer telemetry once Dobutamine is off CONDITION:FAIR PROGNOSIS: FAIR CODE STATUS; FULL CODE Subjective Date of service: 01/16/22 Principal diagnosis: Acute respiratory failure, acute on chronic HFrEF, MARCIO Interval history: This is a 56-year-old AA male with known past medical history of CA, aortic regurgitation, non-obstructive CAD, HFrEF, s/p AICD, diabetes, hyperlipidemia, and hypertension admitted for AICD discharge. Decompensated in the ED s/p emergent intubation now on ventilatory support, in fulminant pulmonary edema Seen and examined. Vitals, labs,medications, chart and imaging reviewed. Discussed with respiratory and nursing care staff. No adverse overnight events reported. Extubated and is doing well visiting at the bedsdie. Patient tolerated BIPAP overnight. Currently sitting out of bed in chair, Dobutamine. Amiodarone now oral. He denies any chest pain, no shortness of breath, no fevers or chills Objective Vital Signs - 12hr 01/16/22 01/16/22 01/16/22 04:00 04:45 05:01 Temperature 97 F L Pulse Rate 82 77 70 Respiratory 20 24 16 Rate Blood Pressure 144/72 139/59 141/61 O2 Sat by Pulse 95 97 94 Oximetry 01/16/22 01/16/22 01/16/22 06:00 06:26 07:00 Temperature Pulse Rate 73 81 Respiratory 15 24 Rate Blood Pressure 158/72 170/75 O2 Sat by Pulse 96 96 94 Oximetry 01/16/22 01/16/22 01/16/22 07:14 08:00 08:48 Temperature 98.3 F 98.2 F Pulse Rate 78 Respiratory 20 Rate Blood Pressure 170/75 O2 Sat by Pulse 96 96 Oximetry 01/16/22 01/16/22 01/16/22 09:01 10:00 11:00 Temperature Pulse Rate 85 72 74 Respiratory 27 H 20 22 Rate Blood Pressure 127/80 135/69 153/77 O2 Sat by Pulse 94 95 95 Oximetry 01/16/22 01/16/22 01/16/22 12:00 12:01 13:00 Temperature 98.3 F Pulse Rate 74 87 69 Respiratory 20 20 17 Rate Blood Pressure 135/69 144/75 O2 Sat by Pulse 95 98 Oximetry 01/16/22 14:00 Temperature Pulse Rate 76 Respiratory 17 Rate Blood Pressure 151/68 O2 Sat by Pulse 98 Oximetry Constitutional: no acute distress, alert Eyes: non-icteric ENT: oropharynx moist Neck: supple, no lymphadenopathy Effort: normal Ascultation: Bilateral: clear, diminished breath sounds Cardiovascular: irregular rhythm, other (S1,S2) Gastrointestinal: normoactive bowel sounds, soft, non-tender, non-distended Integumentary: other (Right femoral HD catheter, Bustamante catheter) Extremities: no cyanosis, no edema, pulses normal, edema Neurologic: non-focal exam, other (moves all extremities) Psychiatric: mood appropriate, affect normal CBC and BMP: 01/16/22 05:10 01/16/22 05:10 ABG, PT/INR, D-dimer: ABG ABG pH 7.432 pH Units (7.350-7.450) 01/15/22 04:15 ABG pCO2 34.4 mm Hg 01/15/22 04:15 ABG pO2 101.6 mm Hg (80.0-90.0) H 01/15/22 04:15 ABG O2 Saturation 97.8 % (95.0-99.0) 01/15/22 04:15 PT/INR, D-dimer PT 22.9 Sec. (12.2-14.9) H 01/16/22 05:10 INR 1.78 (0.87-1.13) H 01/16/22 05:10 Abnormal lab findings: Abnormal Labs 01/10/22 01/10/22 01/10/22 21:47 21:47 21:47 WBC Hgb Hct MCH RDW 19.5 H Lymph % (Auto) 6.0 L Lymph # (Auto) 0.3 L Seg Neutrophils % 85.9 H Seg Neutrophils # PT 27.8 H INR 2.25 H APTT 38.8 H ABG pH ABG pO2 ABG HCO3 ABG O2 Saturation ABG Base Excess ABG Hemoglobin Oxyhemoglobin Sodium 147 H Potassium 3.4 L Chloride 109.0 H Carbon Dioxide BUN 24 H Creatinine Glucose 149 H POC Glucose Lactic Acid Calcium Phosphorus Magnesium Total Bilirubin 1.30 H AST ALT Total Creatine Kinase Troponin T 0.063 H C-Reactive Protein Total Protein Albumin HDL Cholesterol 35 L Urine Blood Urine WBC (Auto) Urine Creatinine Urine Total Protein 01/10/22 01/11/22 01/11/22 21:47 00:12 00:15 WBC Hgb Hct MCH RDW Lymph % (Auto) Lymph # (Auto) Seg Neutrophils % Seg Neutrophils # PT INR APTT ABG pH ABG pO2 ABG HCO3 ABG O2 Saturation ABG Base Excess ABG Hemoglobin Oxyhemoglobin Sodium Potassium Chloride Carbon Dioxide BUN Creatinine Glucose POC Glucose 130 H Lactic Acid Calcium Phosphorus Magnesium 1.50 L Total Bilirubin AST ALT Total Creatine Kinase Troponin T 0.058 H C-Reactive Protein Total Protein Albumin HDL Cholesterol Urine Blood Urine WBC (Auto) Urine Creatinine Urine Total Protein 01/11/22 01/11/22 01/11/22 04:20 04:20 09:09 WBC Hgb Hct MCH RDW Lymph % (Auto) Lymph # (Auto) Seg Neutrophils % Seg Neutrophils # PT INR APTT ABG pH ABG pO2 ABG HCO3 ABG O2 Saturation ABG Base Excess ABG Hemoglobin Oxyhemoglobin Sodium Potassium Chloride Carbon Dioxide 21 L BUN 23 H Creatinine 1.4 H Glucose 157 H POC Glucose Lactic Acid Calcium Phosphorus Magnesium Total Bilirubin AST ALT Total Creatine Kinase Troponin T 0.075 H D C-Reactive Protein Total Protein Albumin HDL Cholesterol Urine Blood Large A Urine WBC (Auto) 22.0 H Urine Creatinine Urine Total Protein 01/11/22 01/11/22 01/11/22 09:19 09:55 14:15 WBC Hgb Hct MCH RDW Lymph % (Auto) Lymph # (Auto) Seg Neutrophils % Seg Neutrophils # PT INR APTT ABG pH 7.265 L ABG pO2 40.4 L ABG HCO3 ABG O2 Saturation 64.5 L ABG Base Excess -5.9 L -3.5 L ABG Hemoglobin Oxyhemoglobin 63.1 L 94.9 L Sodium Potassium Chloride Carbon Dioxide BUN Creatinine Glucose POC Glucose 236 H Lactic Acid Calcium Phosphorus Magnesium Total Bilirubin AST ALT Total Creatine Kinase Troponin T C-Reactive Protein Total Protein Albumin HDL Cholesterol Urine Blood Urine WBC (Auto) Urine Creatinine Urine Total Protein 01/11/22 01/11/22 01/11/22 17:09 19:41 19:41 WBC Hgb Hct MCH RDW Lymph % (Auto) Lymph # (Auto) Seg Neutrophils % Seg Neutrophils # PT INR APTT ABG pH ABG pO2 ABG HCO3 ABG O2 Saturation ABG Base Excess ABG Hemoglobin Oxyhemoglobin Sodium Potassium Chloride Carbon Dioxide 18 L BUN 34 H Creatinine 2.2 H D Glucose 153 H POC Glucose 137 H Lactic Acid 3.30 H* Calcium Phosphorus Magnesium Total Bilirubin AST ALT Total Creatine Kinase Troponin T C-Reactive Protein Total Protein Albumin HDL Cholesterol Urine Blood Urine WBC (Auto) Urine Creatinine Urine Total Protein 01/11/22 01/11/22 01/12/22 19:41 20:26 00:24 WBC Hgb Hct MCH RDW Lymph % (Auto) Lymph # (Auto) Seg Neutrophils % Seg Neutrophils # PT INR APTT ABG pH ABG pO2 218.2 H ABG HCO3 18.5 L ABG O2 Saturation 99.3 H ABG Base Excess -5.0 L ABG Hemoglobin Oxyhemoglobin Sodium Potassium Chloride Carbon Dioxide BUN Creatinine Glucose POC Glucose 155 H Lactic Acid Calcium Phosphorus 1.70 L Magnesium 4.80 H Total Bilirubin AST ALT Total Creatine Kinase Troponin T C-Reactive Protein Total Protein Albumin HDL Cholesterol Urine Blood Urine WBC (Auto) Urine Creatinine Urine Total Protein 01/12/22 01/12/22 01/12/22 05:10 05:10 05:10 WBC Hgb Hct MCH RDW Lymph % (Auto) Lymph # (Auto) Seg Neutrophils % Seg Neutrophils # PT 36.1 H INR 3.09 H APTT ABG pH ABG pO2 ABG HCO3 ABG O2 Saturation ABG Base Excess ABG Hemoglobin Oxyhemoglobin Sodium Potassium Chloride Carbon Dioxide BUN Creatinine Glucose POC Glucose Lactic Acid 3.80 H* Calcium Phosphorus Magnesium Total Bilirubin AST ALT Total Creatine Kinase Troponin T C-Reactive Protein 13.20 H Total Protein Albumin HDL Cholesterol Urine Blood Urine WBC (Auto) Urine Creatinine Urine Total Protein 01/12/22 01/12/22 01/12/22 05:20 08:57 09:30 WBC Hgb Hct MCH RDW Lymph % (Auto) Lymph # (Auto) Seg Neutrophils % Seg Neutrophils # PT INR APTT ABG pH ABG pO2 194.1 H ABG HCO3 ABG O2 Saturation 99.2 H ABG Base Excess ABG Hemoglobin 12.7 L Oxyhemoglobin Sodium Potassium Chloride Carbon Dioxide 21 L BUN 42 H Creatinine 3.3 H Glucose 178 H POC Glucose Lactic Acid 3.60 H* Calcium Phosphorus Magnesium Total Bilirubin AST 73 H ALT 79 H Total Creatine Kinase Troponin T C-Reactive Protein Total Protein 6.2 L Albumin 3.3 L HDL Cholesterol Urine Blood Urine WBC (Auto) Urine Creatinine Urine Total Protein 01/12/22 01/12/22 01/12/22 09:38 14:30 15:23 WBC Hgb Hct MCH RDW 20.0 H Lymph % (Auto) Lymph # (Auto) Seg Neutrophils % Seg Neutrophils # PT INR APTT ABG pH ABG pO2 ABG HCO3 ABG O2 Saturation ABG Base Excess ABG Hemoglobin Oxyhemoglobin Sodium Potassium Chloride Carbon Dioxide BUN Creatinine Glucose POC Glucose Lactic Acid 4.00 H* Calcium Phosphorus Magnesium Total Bilirubin AST ALT Total Creatine Kinase Troponin T C-Reactive Protein Total Protein Albumin HDL Cholesterol Urine Blood Urine WBC (Auto) Urine Creatinine 220.1 H Urine Total Protein 105 H 01/12/22 01/12/22 01/12/22 15:23 16:50 16:51 WBC Hgb Hct MCH RDW Lymph % (Auto) Lymph # (Auto) Seg Neutrophils % Seg Neutrophils # PT INR APTT ABG pH ABG pO2 ABG HCO3 ABG O2 Saturation ABG Base Excess ABG Hemoglobin Oxyhemoglobin Sodium Potassium Chloride Carbon Dioxide BUN Creatinine Glucose POC Glucose 207 H Lactic Acid Calcium Phosphorus Magnesium Total Bilirubin AST ALT Total Creatine Kinase 202 H Troponin T C-Reactive Protein Total Protein Albumin HDL Cholesterol Urine Blood Large A Urine WBC (Auto) 85.0 H Urine Creatinine Urine Total Protein 01/12/22 01/13/22 01/13/22 16:51 03:09 04:04 WBC Hgb Hct MCH RDW Lymph % (Auto) Lymph # (Auto) Seg Neutrophils % Seg Neutrophils # PT 46.8 H INR 4.25 H APTT ABG pH ABG pO2 226.5 H ABG HCO3 17.0 L ABG O2 Saturation 99.3 H ABG Base Excess -7.1 L ABG Hemoglobin 13.8 L Oxyhemoglobin Sodium Potassium Chloride Carbon Dioxide BUN Creatinine Glucose POC Glucose Lactic Acid Calcium Phosphorus Magnesium Total Bilirubin AST ALT Total Creatine Kinase Troponin T C-Reactive Protein Total Protein Albumin HDL Cholesterol Urine Blood Urine WBC (Auto) Urine Creatinine 224.3 H Urine Total Protein 105 H 01/13/22 01/13/22 01/13/22 06:31 08:28 08:47 WBC 12.1 H Hgb Hct MCH RDW 20.1 H Lymph % (Auto) 5.0 L Lymph # (Auto) 0.6 L Seg Neutrophils % 88.2 H Seg Neutrophils # 10.6 H PT INR APTT ABG pH ABG pO2 ABG HCO3 ABG O2 Saturation ABG Base Excess ABG Hemoglobin Oxyhemoglobin Sodium Potassium Chloride Carbon Dioxide 19 L BUN 62 H Creatinine 4.9 H Glucose 128 H POC Glucose 130 H Lactic Acid Calcium Phosphorus Magnesium Total Bilirubin AST ALT Total Creatine Kinase Troponin T C-Reactive Protein Total Protein Albumin HDL Cholesterol Urine Blood Urine WBC (Auto) Urine Creatinine Urine Total Protein 01/13/22 01/14/22 01/14/22 11:41 04:00 04:00 WBC 11.5 H Hgb 11.7 L Hct MCH 27 L RDW 19.8 H Lymph % (Auto) Lymph # (Auto) Seg Neutrophils % Seg Neutrophils # PT INR APTT ABG pH ABG pO2 ABG HCO3 ABG O2 Saturation ABG Base Excess ABG Hemoglobin Oxyhemoglobin Sodium Potassium 3.5 L D Chloride Carbon Dioxide 21 L BUN 81 H Creatinine 5.2 H Glucose 133 H POC Glucose 142 H Lactic Acid Calcium 8.1 L Phosphorus Magnesium Total Bilirubin AST ALT Total Creatine Kinase Troponin T C-Reactive Protein Total Protein Albumin HDL Cholesterol Urine Blood Urine WBC (Auto) Urine Creatinine Urine Total Protein 07/08/22 07/08/22 07/08/22 04:20 05:46 11:18 WBC Hgb Hct MCH RDW Lymph % (Auto) Lymph # (Auto) Seg Neutrophils % Seg Neutrophils # PT INR APTT ABG pH ABG pO2 45.7 L ABG HCO3 ABG O2 Saturation 77.6 L ABG Base Excess -2.2 L ABG Hemoglobin 12.2 L Oxyhemoglobin 75.8 L Sodium Potassium Chloride Carbon Dioxide BUN Creatinine Glucose POC Glucose 117 H 127 H Lactic Acid Calcium Phosphorus Magnesium Total Bilirubin AST ALT Total Creatine Kinase Troponin T C-Reactive Protein Total Protein Albumin HDL Cholesterol Urine Blood Urine WBC (Auto) Urine Creatinine Urine Total Protein 01/14/22 01/14/22 01/15/22 13:10 Unknown 04:15 WBC Hgb Hct MCH RDW Lymph % (Auto) Lymph # (Auto) Seg Neutrophils % Seg Neutrophils # PT 49.5 H INR 4.55 H APTT ABG pH ABG pO2 92.1 H 101.6 H ABG HCO3 ABG O2 Saturation ABG Base Excess -2.1 L ABG Hemoglobin 11.6 L 11.2 L Oxyhemoglobin Sodium Potassium Chloride Carbon Dioxide BUN Creatinine Glucose POC Glucose Lactic Acid Calcium Phosphorus Magnesium Total Bilirubin AST ALT Total Creatine Kinase Troponin T C-Reactive Protein Total Protein Albumin HDL Cholesterol Urine Blood Urine WBC (Auto) Urine Creatinine Urine Total Protein 01/15/22 01/15/22 01/15/22 04:45 04:45 04:45 WBC Hgb 11.4 L Hct 35.3 L MCH 27 L RDW 19.6 H Lymph % (Auto) Lymph # (Auto) Seg Neutrophils % Seg Neutrophils # PT 33.5 H INR 2.83 H APTT ABG pH ABG pO2 ABG HCO3 ABG O2 Saturation ABG Base Excess ABG Hemoglobin Oxyhemoglobin Sodium Potassium 3.0 L Chloride Carbon Dioxide BUN 80 H Creatinine 4.5 H Glucose 103 H POC Glucose Lactic Acid Calcium 8.0 L Phosphorus Magnesium Total Bilirubin AST ALT Total Creatine Kinase Troponin T C-Reactive Protein Total Protein Albumin HDL Cholesterol Urine Blood Urine WBC (Auto) Urine Creatinine Urine Total Protein 01/16/22 01/16/22 01/16/22 05:10 05:10 05:10 WBC Hgb 10.8 L Hct 33.1 L MCH RDW 19.3 H Lymph % (Auto) Lymph # (Auto) Seg Neutrophils % Seg Neutrophils # PT 22.9 H INR 1.78 H APTT ABG pH ABG pO2 ABG HCO3 ABG O2 Saturation ABG Base Excess ABG Hemoglobin Oxyhemoglobin Sodium Potassium 3.2 L Chloride 107.6 H Carbon Dioxide BUN 68 H Creatinine 3.4 H Glucose POC Glucose Lactic Acid Calcium 8.0 L Phosphorus Magnesium Total Bilirubin AST ALT Total Creatine Kinase Troponin T C-Reactive Protein Total Protein Albumin HDL Cholesterol Urine Blood Urine WBC (Auto) Urine Creatinine Urine Total Protein 01/16/22 13:18 WBC Hgb Hct MCH RDW Lymph % (Auto) Lymph # (Auto) Seg Neutrophils % Seg Neutrophils # PT INR APTT ABG pH ABG pO2 ABG HCO3 ABG O2 Saturation ABG Base Excess ABG Hemoglobin Oxyhemoglobin Sodium Potassium Chloride Carbon Dioxide BUN Creatinine Glucose POC Glucose 130 H Lactic Acid Calcium Phosphorus Magnesium Total Bilirubin AST ALT Total Creatine Kinase Troponin T C-Reactive Protein Total Protein Albumin HDL Cholesterol Urine Blood Urine WBC (Auto) Urine Creatinine Urine Total Protein Allied health notes reviewed: nursing
[2022-01-16] MEDS ORDERED: WARFARIN 2.5 MG TAB PO SCH (17:00)
[2022-01-16] MEDS: DOBUTamine/D5W 500 MG/250 ML 500 MG/250 ML BAG IV SCH (17:16)
--- NOTE | 2022-01-16 17:54 | Progress Note ---
Assessment and Plan Acute kidney injury, cr 2.2-->3.3-->4.9-->5.1-->4.5-->3.4. Suspect ATN. Hypokalemia Acute hypoxic respiratory failure, status post extubation Shock Ventricular tachycardia Coronary artery disease Congestive heart failure with reduced ejection fraction Elevated LFTs Case discussed in detail with patient regarding renal disease course Potassium repletion noted Renal function improving without requiring HD, can have vasc cath removed in the next 1-2 days if renal function continues to improve No proteinuria Ultrasound negative for acute pathology/hydronephrosis/retention Continue sodium bicarb tablets Keep MAP more than 65 Continue Thiamine supplementation Renally dose medications Avoid nephrotoxins Renal diet Subjective Date of service: 01/16/22 Principal diagnosis: Acute respiratory failure, acute on chronic HFrEF, MARCIO Interval history: Seen in ICU. Sitting up in chair. Good UOP. Objective - Exam Narrative Exam: General: NAD HEENT: Oral mucosa moist Neck: Supple, no JVD Chest: Decreased bibasilar breath sounds Heart: RRR, S1 and S2, no pericardial rub Abdomen: Soft, nontender, no renal bruit Extremity: No peripheral cyanosis, edema Neurological: Alert, awake, no asterixis Dermatology: No skin rash Psych: No agitation Musculoskeletal: No joint effusion - Vital Signs Vital signs: Vital Signs - 12hr 01/16/22 01/16/22 01/16/22 06:00 06:26 07:00 Temperature Pulse Rate 73 81 Respiratory 15 24 Rate Blood Pressure 158/72 170/75 O2 Sat by Pulse 96 96 94 Oximetry 01/16/22 01/16/22 01/16/22 07:14 08:00 08:48 Temperature 98.3 F 98.2 F Pulse Rate 78 Respiratory 20 Rate Blood Pressure 170/75 O2 Sat by Pulse 96 96 Oximetry 01/16/22 01/16/22 01/16/22 09:01 10:00 11:00 Temperature Pulse Rate 85 72 74 Respiratory 27 H 20 22 Rate Blood Pressure 127/80 135/69 153/77 O2 Sat by Pulse 94 95 95 Oximetry 01/16/22 01/16/22 01/16/22 12:00 12:01 13:00 Temperature 98.3 F Pulse Rate 74 87 69 Respiratory 20 20 17 Rate Blood Pressure 135/69 144/75 O2 Sat by Pulse 95 98 Oximetry 01/16/22 01/16/22 01/16/22 14:00 15:00 16:00 Temperature 98.4 F Pulse Rate 76 70 80 Respiratory 17 12 20 Rate Blood Pressure 151/68 140/71 O2 Sat by Pulse 98 98 95 Oximetry 01/16/22 01/16/22 01/16/22 16:01 17:01 17:21 Temperature 98.1 F Pulse Rate 80 79 Respiratory 15 Rate Blood Pressure 140/71 131/48 O2 Sat by Pulse 92 Oximetry - Lab 01/16/22 05:10 01/16/22 05:10 Most recent lab results ABG pH 7.432 pH Units (7.350-7.450) 01/15/22 04:15 ABG pCO2 34.4 mm Hg 01/15/22 04:15 ABG pO2 101.6 mm Hg (80.0-90.0) H 01/15/22 04:15 ABG HCO3 22.4 mmol/L (20.0-26.0) 01/15/22 04:15 ABG O2 Saturation 97.8 % (95.0-99.0) 01/15/22 04:15 Calcium 8.0 mg/dL (8.4-10.2) L 01/16/22 05:10 Phosphorus 3.80 mg/dL (2.5-4.5) 01/15/22 04:45 Magnesium 2.00 mg/dL (1.7-2.3) 01/15/22 04:45 Urine Creatinine 224.3 mg/dL (0.1-20.0) H 01/12/22 16:51 Urine Total Protein 105 mg/dL (5-11.8) H 01/12/22 16:51 Medications & Allergies - Medications Allergies/Adverse Reactions: Allergies aspirin Adverse Reaction (Verified 01/10/22 21:41) Unknown patient is taking warfarin and has been advised to not take aspirin Home Medications: Home Medications Medication Instructions Recorded Confirmed Last Taken Type Isosorbide Mononitrate [Isosorbide 30 mg PO DAILY #30 tab.er.24h 08/20/13 01/14/22 01/15/17 08:00 Rx Mononitrate ER] carvediloL [Coreg] 25 mg PO BID #60 tablet 08/20/13 01/14/22 09/22/18 Rx Furosemide [Lasix] 40 mg PO DAILY #30 tablet 09/17/13 01/14/22 01/15/17 08:00 Rx AtorvaSTATin [Lipitor] 80 mg PO QHS #30 tablet 01/19/17 01/14/22 Unknown Rx amLODIPine 10 mg PO DAILY 09/23/18 01/14/22 09/22/18 History cloNIDine-TTS PATCH [Catapres-Tts 1 patch TD Q7D 09/23/18 01/14/22 09/21/18 History 0.1MG Patch] hydrALAZINE [Apresoline TAB] 50 mg PO TID 09/23/18 01/14/22 09/22/18 History metFORMIN [Glucophage] 500 mg PO BID 09/23/18 01/14/22 Unknown History Potassium Chloride [K-Dur] 10 meq PO QDAY 03/28/19 01/14/22 Unknown History Warfarin [Coumadin] 2.5 mg PO QDAY 03/28/19 01/14/22 Unknown History ISOSORBIDE MONOnitrate [Imdur ER] 30 mg PO QDAY #30 tablet 03/29/19 01/14/22 Unknown Rx Warfarin [Coumadin] 7.5 mg PO DAILY@1700 tablet 03/30/19 01/14/22 Unknown Rx Active Medications: Generic Name Dose Route Start Last Admin Trade Name Dimitriq PRN Reason Stop Dose Admin Acetaminophen 650 mg 01/10/22 23:49 Acetaminophen 325 Mg Tab PO Q6H PRN Pain MILD(1-3)/Fever >100.5/NÚÑEZ Albuterol 2.5 mg 01/11/22 00:19 Albuterol 2.5 Mg/3 Ml Nebu IH Q4HRT PRN Shortness Of Breath Amiodarone HCl 200 mg 01/15/22 22:00 01/16/22 09:40 Amiodarone 200 Mg Tab PO 200 mg BID SHAKEEL Administration Atorvastatin Calcium 80 mg 01/11/22 22:00 01/15/22 21:29 Atorvastatin 40 Mg Tab FEEDTUBE 80 mg QHS SHAKEEL Administration Dextrose 50 ml 01/10/22 23:49 Dextrose 50% In Water (25gm) 50 Ml Syringe IV Q30MIN PRN Hypoglycemia Protocol Famotidine 10 mg 01/13/22 11:00 01/16/22 09:40 Famotidine 10 Mg Tab FEEDTUBE 10 mg BID SHAKEEL Administration Hydrophilic Ointment 1 applic 01/12/22 09:02 Lip Therapy Vaseline TP Q2HR PRN Dry Lips Dobutamine HCl/Dextrose 500 mg in 250 mls @ 8.845 mls/hr 01/13/22 12:00 01/16/22 17:16 Dobutrex Drip 500mg/D5w 250ml IV 2.5 mcg/kg/min DIRECT SHAKEEL 8.845 mls/hr Administration Protocol 2.5 MCG/KG/MIN Sodium Chloride 100 mls @ 999 mls/hr 01/14/22 19:45 Nacl 0.9% IV LANE PRN Hypotension Insulin Human Lispro 0 unit 01/11/22 12:00 01/16/22 17:16 Insulin Lispro 100 Unit/Ml SUB-Q Not Given Q6HR [facility] Protocol Magnesium Hydroxide 30 ml 01/10/22 23:49 Magnesium Hydroxide (Mom) Oral Liqd Udc PO Q4H PRN Constipation Multi-Ingred Cream/Lotion/Oil/Oint 1 applic 01/12/22 09:02 Mineral Oil/Petrolatum, White Ophth Oint 3.5 Gm OU Q4HR PRN Dry Eye(s) Ondansetron HCl 4 mg 01/10/22 23:49 01/15/22 21:41 Ondansetron 4 Mg/2 Ml Inj IV 4 mg Q8H PRN Administration Nausea And Vomiting Senna/Docusate Sodium 1 tab 01/12/22 10:00 01/16/22 13:25 Sennosides/Docusate Sodium 8.6/50 Mg Tab FEEDTUBE Not Given BID SHAKEEL Sodium Bicarbonate 1,300 mg 01/13/22 14:00 01/16/22 14:45 Sodium Bicarbonate 650 Mg Tab PO 1,300 mg TID SHAKEEL Administration Sodium Chloride 10 ml 01/11/22 10:00 01/16/22 09:43 Sodium Chloride 0.9% 10 Ml Flush Syringe IV 10 ml BID SHAKEEL Administration Sodium Chloride 10 ml 01/10/22 23:49 Sodium Chloride 0.9% 10 Ml Flush Syringe IV PRN PRN LINE FLUSH Thiamine HCl 100 mg 01/13/22 10:00 01/16/22 09:40 Thiamine 100 Mg Tab FEEDTUBE 100 mg QDAY SHAKEEL Administration Warfarin Sodium 2.5 mg 01/16/22 17:00 01/16/22 17:16 Warfarin 2.5 Mg Tab PO 01/17/22 16:59 2.5 mg DAILY@1700 SHAKEEL Administration
[2022-01-17] MEDS: SENNOSIDES/DOCUSATE SODIUM 8.6/50 MG TAB FEEDTUBE SCH ×2 (00:32→09:01)
--- NOTE | 2022-01-17 04:42 | XRay Report ---
CHEST 1 VIEW 01/17/2022 3:33 AM INDICATION / CLINICAL INFORMATION: follow up respiratory failure. COMPARISON: Previous day. FINDINGS: SUPPORT DEVICES: Unchanged. HEART / MEDIASTINUM: Stable cardiomegaly. LUNGS / PLEURA: Residual opacity left base. No pneumothorax. ADDITIONAL FINDINGS: No significant additional findings. IMPRESSION: Residual opacity left base. Signer Name: Jose Maria Dumont MD Signed: 01/17/2022 4:38 AM Workstation Name: [id number]
[2022-01-17 06:30] LABS: Hematocrit 36.6 % (35.5-45.6); Hemoglobin 11.4 gm/dl (11.8-15.2); Mean Corpuscular HGB Conc 31 % (32-34); Mean Corpuscular Volume 86 fl (84-94); Platelet Count 191 K/mm3 (140-440); Red Blood Count 4.24 M/mm3 (3.65-5.03); Red Cell Distribution Width 19.1 % (13.2-15.2)
[2022-01-17 06:38] LABS: INR 1.28 (0.87-1.13)
[2022-01-17 06:56] LABS: Albumin 3.4 g/dL (3.9-5); Calcium 8.6 mg/dL (8.4-10.2)
[2022-01-17] MEDS: INSULIN LISPRO 100 UNIT/ML SUB-Q SCH ×4 (07:36→21:36)
[2022-01-17] MEDS: AMIODARONE 200 MG TAB PO SCH ×2 (09:01→21:35)
[2022-01-17] MEDS: SODIUM BICARBONATE 650 MG TAB PO SCH ×3 (09:01→21:35)
[2022-01-17] MEDS: FAMOTIDINE 10 MG TAB FEEDTUBE SCH (09:01)
[2022-01-17] MEDS: THIAMINE 100 MG TAB FEEDTUBE SCH (09:01)
--- NOTE | 2022-01-17 09:02 | Progress Note ---
Assessment and Plan Acute Hypoxic Respiratory Failure s/p MVS Fulminant Pulmonary Edema/ Possible CAP Ventricular Tachycardia - Implantable Cardioverter-Defibrillator (ICD) discharge CAD (Coronary Artery Disease) Congestive Heart Failure with Reduce EF h/o HTN (Hypertension) Acute Kidney Injury(MARCIO) Hypokalemia-improved Possible CAP Type 2 Diabetes Mellitus Discontinue femoral Vascath -Titrate supplemental oxygen oxygen for SpO2 89-92% -CXR, ABG as clinically indicated -BIPAP qhs and prn -Continue to monitor renal function, hemodynamics and electrolyte profile -Avoid nephrotoxins, adjust all medications for GFR and CrCL -Replete electrolytes as clinically indicated -Accuchecks with glycemic control, target blood glucose 140-180 mg/dL. Avoid hypoglycemia -VTE prophylaxis-INR is <2, continue Coumadin with goal INR of 2-3 -Stress ulcer prophylaxis-Famotidine -Mobility, frequent turning, off loading per facility protocol to prevent pressure ulcers -PT/OT, increase activity as tolerated -Maintain sleep wake cycle, avoid benzodiazepines. -Limit delirium -Supportive blood transfusion, keep HgB>7g/dL Needs pulmonary outpatient follow up post discharge- need sleep evaluation( patient states he has a CPAP machine that is over 10 years old) Can transfer telemetry CONDITION:FAIR PROGNOSIS: FAIR CODE STATUS; FULL CODE Subjective Date of service: 01/17/22 Principal diagnosis: Acute respiratory failure, acute on chronic HFrEF, MARCIO Interval history: This is a 56-year-old AA male with known past medical history of VA, aortic regurgitation, non-obstructive CAD, HFrEF, s/p AICD, diabetes, hyperlipidemia, and hypertension admitted for AICD discharge. Decompensated in the ED s/p emergent intubation now on ventilatory support, in fulminant pulmonary edema Seen and examined. Vitals, labs,medications, chart and imaging reviewed. Discussed with respiratory and nursing care staff. No adverse overnight events reported. Patient tolerated BIPAP overnight. Currently sitting out of bed in chair, off Dobutamine. He denies any chest pain, no shortness of breath, no fevers or chills Bustamante is out Objective Vital Signs - 12hr 01/16/22 01/16/22 01/17/22 22:01 23:00 00:00 Temperature 98 F Pulse Rate 85 82 78 Pulse Rate [ From Monitor] Respiratory 14 21 24 Rate Blood Pressure 161/92 166/85 161/86 O2 Sat by Pulse 98 97 Oximetry 07/11/22 07/11/22 07/11/22 01:00 02:00 03:00 Temperature Pulse Rate 81 68 69 Pulse Rate [ From Monitor] Respiratory 23 18 17 Rate Blood Pressure 144/73 153/77 149/85 O2 Sat by Pulse 95 97 98 Oximetry 01/17/22 01/17/22 01/17/22 04:00 04:01 05:01 Temperature 97.9 F Pulse Rate 84 71 83 Pulse Rate [ From Monitor] Respiratory 24 17 Rate Blood Pressure 155/84 155/84 O2 Sat by Pulse 97 98 Oximetry 01/17/22 01/17/22 01/17/22 06:00 07:01 07:18 Temperature 98.1 F Pulse Rate 79 76 Pulse Rate [ From Monitor] Respiratory 20 18 Rate Blood Pressure 137/78 150/91 O2 Sat by Pulse 93 94 Oximetry 01/17/22 01/17/22 08:00 08:12 Temperature Pulse Rate 78 Pulse Rate [ 82 From Monitor] Respiratory 20 Rate Blood Pressure 155/92 O2 Sat by Pulse 96 97 Oximetry Constitutional: no acute distress, alert Eyes: non-icteric ENT: oropharynx moist Neck: supple, no lymphadenopathy Effort: normal Ascultation: Bilateral: clear, diminished breath sounds, rhonchi Cardiovascular: irregular rhythm, other (S1,S2) Gastrointestinal: normoactive bowel sounds, soft, non-tender, non-distended Integumentary: other (Right femoral HD catheter, Bustamante catheter) Extremities: no cyanosis, no edema, pulses normal, edema Neurologic: non-focal exam, pupils equal and round, CN II-XII normal, motor strength normal and Psychiatric: mood appropriate, affect normal CBC and BMP: 01/17/22 05:20 01/18/22 09:15 ABG, PT/INR, D-dimer: ABG ABG pH 7.432 pH Units (7.350-7.450) 01/15/22 04:15 ABG pCO2 34.4 mm Hg 01/15/22 04:15 ABG pO2 101.6 mm Hg (80.0-90.0) H 01/15/22 04:15 ABG O2 Saturation 97.8 % (95.0-99.0) 01/15/22 04:15 PT/INR, D-dimer PT 17.5 Sec. (12.2-14.9) H 01/17/22 05:20 INR 1.28 (0.87-1.13) H 01/17/22 05:20 Abnormal lab findings: Abnormal Labs 01/10/22 01/10/22 01/10/22 21:47 21:47 21:47 WBC Hgb Hct MCH MCHC RDW 19.5 H Lymph % (Auto) 6.0 L Lymph # (Auto) 0.3 L Seg Neutrophils % 85.9 H Seg Neutrophils # PT 27.8 H INR 2.25 H APTT 38.8 H ABG pH ABG pO2 ABG HCO3 ABG O2 Saturation ABG Base Excess ABG Hemoglobin Oxyhemoglobin Sodium 147 H Potassium 3.4 L Chloride 109.0 H Carbon Dioxide BUN 24 H Creatinine Glucose 149 H POC Glucose Lactic Acid Calcium Phosphorus Magnesium Total Bilirubin 1.30 H AST ALT Total Creatine Kinase Troponin T 0.063 H C-Reactive Protein Total Protein Albumin HDL Cholesterol 35 L Urine Blood Urine WBC (Auto) Urine Creatinine Urine Total Protein 01/10/22 01/11/22 01/11/22 21:47 00:12 00:15 WBC Hgb Hct MCH MCHC RDW Lymph % (Auto) Lymph # (Auto) Seg Neutrophils % Seg Neutrophils # PT INR APTT ABG pH ABG pO2 ABG HCO3 ABG O2 Saturation ABG Base Excess ABG Hemoglobin Oxyhemoglobin Sodium Potassium Chloride Carbon Dioxide BUN Creatinine Glucose POC Glucose 130 H Lactic Acid Calcium Phosphorus Magnesium 1.50 L Total Bilirubin AST ALT Total Creatine Kinase Troponin T 0.058 H C-Reactive Protein Total Protein Albumin HDL Cholesterol Urine Blood Urine WBC (Auto) Urine Creatinine Urine Total Protein 01/11/22 01/11/22 01/11/22 04:20 04:20 09:09 WBC Hgb Hct MCH MCHC RDW Lymph % (Auto) Lymph # (Auto) Seg Neutrophils % Seg Neutrophils # PT INR APTT ABG pH ABG pO2 ABG HCO3 ABG O2 Saturation ABG Base Excess ABG Hemoglobin Oxyhemoglobin Sodium Potassium Chloride Carbon Dioxide 21 L BUN 23 H Creatinine 1.4 H Glucose 157 H POC Glucose Lactic Acid Calcium Phosphorus Magnesium Total Bilirubin AST ALT Total Creatine Kinase Troponin T 0.075 H D C-Reactive Protein Total Protein Albumin HDL Cholesterol Urine Blood Large A Urine WBC (Auto) 22.0 H Urine Creatinine Urine Total Protein 01/11/22 01/11/22 01/11/22 09:19 09:55 14:15 WBC Hgb Hct MCH MCHC RDW Lymph % (Auto) Lymph # (Auto) Seg Neutrophils % Seg Neutrophils # PT INR APTT ABG pH 7.265 L ABG pO2 40.4 L ABG HCO3 ABG O2 Saturation 64.5 L ABG Base Excess -5.9 L -3.5 L ABG Hemoglobin Oxyhemoglobin 63.1 L 94.9 L Sodium Potassium Chloride Carbon Dioxide BUN Creatinine Glucose POC Glucose 236 H Lactic Acid Calcium Phosphorus Magnesium Total Bilirubin AST ALT Total Creatine Kinase Troponin T C-Reactive Protein Total Protein Albumin HDL Cholesterol Urine Blood Urine WBC (Auto) Urine Creatinine Urine Total Protein 01/11/22 01/11/22 01/11/22 17:09 19:41 19:41 WBC Hgb Hct MCH MCHC RDW Lymph % (Auto) Lymph # (Auto) Seg Neutrophils % Seg Neutrophils # PT INR APTT ABG pH ABG pO2 ABG HCO3 ABG O2 Saturation ABG Base Excess ABG Hemoglobin Oxyhemoglobin Sodium Potassium Chloride Carbon Dioxide 18 L BUN 34 H Creatinine 2.2 H D Glucose 153 H POC Glucose 137 H Lactic Acid 3.30 H* Calcium Phosphorus Magnesium Total Bilirubin AST ALT Total Creatine Kinase Troponin T C-Reactive Protein Total Protein Albumin HDL Cholesterol Urine Blood Urine WBC (Auto) Urine Creatinine Urine Total Protein 01/11/22 01/11/22 01/12/22 19:41 20:26 00:24 WBC Hgb Hct MCH MCHC RDW Lymph % (Auto) Lymph # (Auto) Seg Neutrophils % Seg Neutrophils # PT INR APTT ABG pH ABG pO2 218.2 H ABG HCO3 18.5 L ABG O2 Saturation 99.3 H ABG Base Excess -5.0 L ABG Hemoglobin Oxyhemoglobin Sodium Potassium Chloride Carbon Dioxide BUN Creatinine Glucose POC Glucose 155 H Lactic Acid Calcium Phosphorus 1.70 L Magnesium 4.80 H Total Bilirubin AST ALT Total Creatine Kinase Troponin T C-Reactive Protein Total Protein Albumin HDL Cholesterol Urine Blood Urine WBC (Auto) Urine Creatinine Urine Total Protein 01/12/22 01/12/22 01/12/22 05:10 05:10 05:10 WBC Hgb Hct MCH MCHC RDW Lymph % (Auto) Lymph # (Auto) Seg Neutrophils % Seg Neutrophils # PT 36.1 H INR 3.09 H APTT ABG pH ABG pO2 ABG HCO3 ABG O2 Saturation ABG Base Excess ABG Hemoglobin Oxyhemoglobin Sodium Potassium Chloride Carbon Dioxide BUN Creatinine Glucose POC Glucose Lactic Acid 3.80 H* Calcium Phosphorus Magnesium Total Bilirubin AST ALT Total Creatine Kinase Troponin T C-Reactive Protein 13.20 H Total Protein Albumin HDL Cholesterol Urine Blood Urine WBC (Auto) Urine Creatinine Urine Total Protein 01/12/22 01/12/22 01/12/22 05:20 08:57 09:30 WBC Hgb Hct MCH MCHC RDW Lymph % (Auto) Lymph # (Auto) Seg Neutrophils % Seg Neutrophils # PT INR APTT ABG pH ABG pO2 194.1 H ABG HCO3 ABG O2 Saturation 99.2 H ABG Base Excess ABG Hemoglobin 12.7 L Oxyhemoglobin Sodium Potassium Chloride Carbon Dioxide 21 L BUN 42 H Creatinine 3.3 H Glucose 178 H POC Glucose Lactic Acid 3.60 H* Calcium Phosphorus Magnesium Total Bilirubin AST 73 H ALT 79 H Total Creatine Kinase Troponin T C-Reactive Protein Total Protein 6.2 L Albumin 3.3 L HDL Cholesterol Urine Blood Urine WBC (Auto) Urine Creatinine Urine Total Protein 01/12/22 01/12/22 01/12/22 09:38 14:30 15:23 WBC Hgb Hct MCH MCHC RDW 20.0 H Lymph % (Auto) Lymph # (Auto) Seg Neutrophils % Seg Neutrophils # PT INR APTT ABG pH ABG pO2 ABG HCO3 ABG O2 Saturation ABG Base Excess ABG Hemoglobin Oxyhemoglobin Sodium Potassium Chloride Carbon Dioxide BUN Creatinine Glucose POC Glucose Lactic Acid 4.00 H* Calcium Phosphorus Magnesium Total Bilirubin AST ALT Total Creatine Kinase Troponin T C-Reactive Protein Total Protein Albumin HDL Cholesterol Urine Blood Urine WBC (Auto) Urine Creatinine 220.1 H Urine Total Protein 105 H 01/12/22 01/12/22 01/12/22 15:23 16:50 16:51 WBC Hgb Hct MCH MCHC RDW Lymph % (Auto) Lymph # (Auto) Seg Neutrophils % Seg Neutrophils # PT INR APTT ABG pH ABG pO2 ABG HCO3 ABG O2 Saturation ABG Base Excess ABG Hemoglobin Oxyhemoglobin Sodium Potassium Chloride Carbon Dioxide BUN Creatinine Glucose POC Glucose 207 H Lactic Acid Calcium Phosphorus Magnesium Total Bilirubin AST ALT Total Creatine Kinase 202 H Troponin T C-Reactive Protein Total Protein Albumin HDL Cholesterol Urine Blood Large A Urine WBC (Auto) 85.0 H Urine Creatinine Urine Total Protein 01/12/22 01/13/22 01/13/22 16:51 03:09 04:04 WBC Hgb Hct MCH MCHC RDW Lymph % (Auto) Lymph # (Auto) Seg Neutrophils % Seg Neutrophils # PT 46.8 H INR 4.25 H APTT ABG pH ABG pO2 226.5 H ABG HCO3 17.0 L ABG O2 Saturation 99.3 H ABG Base Excess -7.1 L ABG Hemoglobin 13.8 L Oxyhemoglobin Sodium Potassium Chloride Carbon Dioxide BUN Creatinine Glucose POC Glucose Lactic Acid Calcium Phosphorus Magnesium Total Bilirubin AST ALT Total Creatine Kinase Troponin T C-Reactive Protein Total Protein Albumin HDL Cholesterol Urine Blood Urine WBC (Auto) Urine Creatinine 224.3 H Urine Total Protein 105 H 01/13/22 01/13/22 01/13/22 06:31 08:28 08:47 WBC 12.1 H Hgb Hct MCH MCHC RDW 20.1 H Lymph % (Auto) 5.0 L Lymph # (Auto) 0.6 L Seg Neutrophils % 88.2 H Seg Neutrophils # 10.6 H PT INR APTT ABG pH ABG pO2 ABG HCO3 ABG O2 Saturation ABG Base Excess ABG Hemoglobin Oxyhemoglobin Sodium Potassium Chloride Carbon Dioxide 19 L BUN 62 H Creatinine 4.9 H Glucose 128 H POC Glucose 130 H Lactic Acid Calcium Phosphorus Magnesium Total Bilirubin AST ALT Total Creatine Kinase Troponin T C-Reactive Protein Total Protein Albumin HDL Cholesterol Urine Blood Urine WBC (Auto) Urine Creatinine Urine Total Protein 01/13/22 01/14/22 01/14/22 11:41 04:00 04:00 WBC 11.5 H Hgb 11.7 L Hct MCH 27 L MCHC RDW 19.8 H Lymph % (Auto) Lymph # (Auto) Seg Neutrophils % Seg Neutrophils # PT INR APTT ABG pH ABG pO2 ABG HCO3 ABG O2 Saturation ABG Base Excess ABG Hemoglobin Oxyhemoglobin Sodium Potassium 3.5 L D Chloride Carbon Dioxide 21 L BUN 81 H Creatinine 5.2 H Glucose 133 H POC Glucose 142 H Lactic Acid Calcium 8.1 L Phosphorus Magnesium Total Bilirubin AST ALT Total Creatine Kinase Troponin T C-Reactive Protein Total Protein Albumin HDL Cholesterol Urine Blood Urine WBC (Auto) Urine Creatinine Urine Total Protein 01/14/22 01/14/22 01/14/22 04:20 05:46 11:18 WBC Hgb Hct MCH MCHC RDW Lymph % (Auto) Lymph # (Auto) Seg Neutrophils % Seg Neutrophils # PT INR APTT ABG pH ABG pO2 45.7 L ABG HCO3 ABG O2 Saturation 77.6 L ABG Base Excess -2.2 L ABG Hemoglobin 12.2 L Oxyhemoglobin 75.8 L Sodium Potassium Chloride Carbon Dioxide BUN Creatinine Glucose POC Glucose 117 H 127 H Lactic Acid Calcium Phosphorus Magnesium Total Bilirubin AST ALT Total Creatine Kinase Troponin T C-Reactive Protein Total Protein Albumin HDL Cholesterol Urine Blood Urine WBC (Auto) Urine Creatinine Urine Total Protein 01/14/22 01/14/22 01/15/22 13:10 Unknown 04:15 WBC Hgb Hct MCH MCHC RDW Lymph % (Auto) Lymph # (Auto) Seg Neutrophils % Seg Neutrophils # PT 49.5 H INR 4.55 H APTT ABG pH ABG pO2 92.1 H 101.6 H ABG HCO3 ABG O2 Saturation ABG Base Excess -2.1 L ABG Hemoglobin 11.6 L 11.2 L Oxyhemoglobin Sodium Potassium Chloride Carbon Dioxide BUN Creatinine Glucose POC Glucose Lactic Acid Calcium Phosphorus Magnesium Total Bilirubin AST ALT Total Creatine Kinase Troponin T C-Reactive Protein Total Protein Albumin HDL Cholesterol Urine Blood Urine WBC (Auto) Urine Creatinine Urine Total Protein 01/15/22 01/15/22 01/15/22 04:45 04:45 04:45 WBC Hgb 11.4 L Hct 35.3 L MCH 27 L MCHC RDW 19.6 H Lymph % (Auto) Lymph # (Auto) Seg Neutrophils % Seg Neutrophils # PT 33.5 H INR 2.83 H APTT ABG pH ABG pO2 ABG HCO3 ABG O2 Saturation ABG Base Excess ABG Hemoglobin Oxyhemoglobin Sodium Potassium 3.0 L Chloride Carbon Dioxide BUN 80 H Creatinine 4.5 H Glucose 103 H POC Glucose Lactic Acid Calcium 8.0 L Phosphorus Magnesium Total Bilirubin AST ALT Total Creatine Kinase Troponin T C-Reactive Protein Total Protein Albumin HDL Cholesterol Urine Blood Urine WBC (Auto) Urine Creatinine Urine Total Protein 01/16/22 01/16/22 01/16/22 05:10 05:10 05:10 WBC Hgb 10.8 L Hct 33.1 L MCH MCHC RDW 19.3 H Lymph % (Auto) Lymph # (Auto) Seg Neutrophils % Seg Neutrophils # PT 22.9 H INR 1.78 H APTT ABG pH ABG pO2 ABG HCO3 ABG O2 Saturation ABG Base Excess ABG Hemoglobin Oxyhemoglobin Sodium Potassium 3.2 L Chloride 107.6 H Carbon Dioxide BUN 68 H Creatinine 3.4 H Glucose POC Glucose Lactic Acid Calcium 8.0 L Phosphorus Magnesium Total Bilirubin AST ALT Total Creatine Kinase Troponin T C-Reactive Protein Total Protein Albumin HDL Cholesterol Urine Blood Urine WBC (Auto) Urine Creatinine Urine Total Protein 01/16/22 01/17/22 01/17/22 13:18 04:00 05:20 WBC Hgb Hct MCH MCHC RDW Lymph % (Auto) Lymph # (Auto) Seg Neutrophils % Seg Neutrophils # PT 17.5 H INR 1.28 H APTT ABG pH ABG pO2 ABG HCO3 ABG O2 Saturation ABG Base Excess ABG Hemoglobin Oxyhemoglobin Sodium Potassium 3.5 L Chloride Carbon Dioxide BUN 55 H Creatinine 2.6 H Glucose POC Glucose 130 H Lactic Acid Calcium Phosphorus Magnesium Total Bilirubin AST 106 H ALT 262 H Total Creatine Kinase Troponin T C-Reactive Protein Total Protein Albumin 3.4 L HDL Cholesterol Urine Blood Urine WBC (Auto) Urine Creatinine Urine Total Protein 01/17/22 05:20 WBC Hgb 11.4 L Hct MCH 27 L MCHC 31 L RDW 19.1 H Lymph % (Auto) Lymph # (Auto) Seg Neutrophils % Seg Neutrophils # PT INR APTT ABG pH ABG pO2 ABG HCO3 ABG O2 Saturation ABG Base Excess ABG Hemoglobin Oxyhemoglobin Sodium Potassium Chloride Carbon Dioxide BUN Creatinine Glucose POC Glucose Lactic Acid Calcium Phosphorus Magnesium Total Bilirubin AST ALT Total Creatine Kinase Troponin T C-Reactive Protein Total Protein Albumin HDL Cholesterol Urine Blood Urine WBC (Auto) Urine Creatinine Urine Total Protein Chest x-ray: image reviewed Allied health notes reviewed: nursing
--- NOTE | 2022-01-17 09:11 | Progress Note ---
Assessment and Plan Assessment and plan: neuro: acute pain pain well controlled prn pain meds PT/OT OOB CV a/c afib; ac hf; hx HLD; hx htn a/c afib on coumadin INR goal 2-3 2.6 this AM amio to po yesterday inc lft statin temporary held CMP in AM and reeval d/c this AM cards following resume home meds as appropriate Resp-nap NC PRN GI- transaminitis avoid hepatotoxins statin held- reeval in AM limit tylenol hepatitis neg diet as tolerated tolerating renal diet pepcid on coumadin inc LFT reeodered for am bowel reg : MARCIO; hypok joyce d/c last compliance assistant for retention intake and output follow and replace electrolytes as needed k 3.5 this AM given 40 meq KCL po vascath to be d/c prior to transfer to floor AVOID nephrotoxins Heme- on AC daily INR coumadin goal INR 2-3 trend LFT no bleeding on exam VTE on coumadin ID- nap afebrile covid neg Endo- stress hyperglycemia; DM SSI PRN resume home metformin when appropriate PLAN STAFFED WITH DR VALDOVINOS AND DR GARCIA TRANSFER TO TELEMETRY Disposition Plan: transfer to telemetry Total Time Spent with Patient (Minutes): 60 min non crititical care History Interval history: amio to po yesterday- tolerated well Hospitalist Physical - Constitutional Vitals: Temp Pulse Resp BP Pulse Ox 98.1 F 82 20 155/92 97 01/17/22 07:18 01/17/22 08:00 01/17/22 08:00 01/17/22 08:00 01/17/22 08:12 General appearance: Present: no acute distress, well-nourished, obese - EENT Eyes: Present: PERRL, EOM intact ENT: hearing intact, clear oral mucosa, dentition normal - Neck Neck: Present: supple - Respiratory Respiratory effort: normal - Cardiovascular Rhythm: regular Heart Sounds: Present: S1 & S2 - Extremities Extremities: no ischemia Peripheral Pulses: within normal limits - Abdominal General gastrointestinal: soft, non-tender - Integumentary Integumentary: Present: clear, warm - Psychiatric Psychiatric: appropriate mood/affect - Neurologic Neurologic: CNII-XII intact - Allied Health Allied health notes reviewed: nursing, PT, OT HEART Score - HEART Score History: Slightly suspicious EKG: Non-specific Age: 45-65 Risk factors: > 3 risk factors or hx of atherosclerotic disease Troponin: Troponin T 0.075 ng/mL (0.00-0.029) H D 01/11/22 04:20 Troponin: 1-3x normal limit HEART Score: 5 - Critical Actions Critical Actions: 4-6 pts:12-16.6% risk of adverse cardiac event. Should be admitted Results - Labs CBC & Chem 7: 01/17/22 05:20 01/17/22 04:00 Labs: Laboratory Last Values WBC 7.3 K/mm3 (4.5-11.0) 01/17/22 05:20 RBC 4.24 M/mm3 (3.65-5.03) 01/17/22 05:20 Hgb 11.4 gm/dl (11.8-15.2) L 01/17/22 05:20 Hct 36.6 % (35.5-45.6) 01/17/22 05:20 MCV 86 fl (84-94) 01/17/22 05:20 MCH 27 pg (28-32) L 01/17/22 05:20 MCHC 31 % (32-34) L 01/17/22 05:20 RDW 19.1 % (13.2-15.2) H 01/17/22 05:20 Plt Count 191 K/mm3 (140-440) 01/17/22 05:20 Lymph % (Auto) 5.0 % (13.4-35.0) L 01/13/22 08:28 Sullivan % (Auto) 6.5 % (0.0-7.3) 01/13/22 08:28 Eos % (Auto) 0.1 % (0.0-4.3) 01/13/22 08:28 Baso % (Auto) 0.2 % (0.0-1.8) 01/13/22 08:28 Lymph # (Auto) 0.6 K/mm3 (1.2-5.4) L 01/13/22 08:28 Sullivan # (Auto) 0.8 K/mm3 (0.0-0.8) 01/13/22 08:28 Eos # (Auto) 0.0 K/mm3 (0.0-0.4) 01/13/22 08:28 Baso # (Auto) 0.0 K/mm3 (0.0-0.1) 01/13/22 08:28 Seg Neutrophils % 88.2 % (40.0-70.0) H 01/13/22 08:28 Seg Neutrophils # 10.6 K/mm3 (1.8-7.7) H 01/13/22 08:28 PT 17.5 Sec. (12.2-14.9) H 01/17/22 05:20 INR 1.28 (0.87-1.13) H 01/17/22 05:20 APTT 38.8 Sec. (24.2-36.6) H 01/10/22 21:47 ABG pH 7.432 pH Units (7.350-7.450) 01/15/22 04:15 ABG pCO2 34.4 mm Hg 01/15/22 04:15 ABG pO2 101.6 mm Hg (80.0-90.0) H 01/15/22 04:15 ABG HCO3 22.4 mmol/L (20.0-26.0) 01/15/22 04:15 ABG O2 Saturation 97.8 % (95.0-99.0) 01/15/22 04:15 ABG O2 Content 15.2 (0.0-44) 01/15/22 04:15 ABG Base Excess -1.4 mmol/L (-2.0-3.0) 01/15/22 04:15 ABG Hemoglobin 11.2 gm/dl (14.0-18.0) L 01/15/22 04:15 ABG Carboxyhemoglobin 1.5 % (0.0-5.0) 01/15/22 04:15 ABG Methemoglobin 0.6 % (0.0-1.5) 01/15/22 04:15 Oxyhemoglobin 95.8 % (95.0-99.0) 01/15/22 04:15 FiO2 35 % 01/15/22 04:15 Sodium 145 mmol/L (137-145) 01/17/22 04:00 Potassium 3.5 mmol/L (3.6-5.0) L 01/17/22 04:00 Chloride 106.6 mmol/L (98-107) 01/17/22 04:00 Carbon Dioxide 28 mmol/L (22-30) 01/17/22 04:00 Anion Gap 14 mmol/L 01/17/22 04:00 BUN 55 mg/dL (9-20) H 01/17/22 04:00 Creatinine 2.6 mg/dL (0.8-1.3) H 01/17/22 04:00 Estimated GFR 31 ml/min 01/17/22 04:00 BUN/Creatinine Ratio 21 % 01/17/22 04:00 Glucose 94 mg/dL (75-100) 01/17/22 04:00 POC Glucose 85 mg/dL (70-105) 01/17/22 07:28 Lactic Acid 4.00 mmol/L (0.7-2.0) H* 01/12/22 15:23 Calcium 8.6 mg/dL (8.4-10.2) 01/17/22 04:00 Phosphorus 3.10 mg/dL (2.5-4.5) 01/17/22 04:00 Magnesium 2.20 mg/dL (1.7-2.3) 01/17/22 04:00 Total Bilirubin 1.00 mg/dL (0.1-1.2) 01/17/22 04:00 AST 106 units/L (5-40) H 01/17/22 04:00 ALT 262 units/L (7-56) H 01/17/22 04:00 Alkaline Phosphatase 68 units/L (35-129) 01/17/22 04:00 Total Creatine Kinase 202 units/L (55-170) H 01/12/22 15:23 Troponin T 0.075 ng/mL (0.00-0.029) H D 01/11/22 04:20 C-Reactive Protein 13.20 mg/dL (0.00-1.30) H 01/12/22 05:10 Total Protein 6.5 g/dL (6.3-8.2) 01/17/22 04:00 Albumin 3.4 g/dL (3.9-5) L 01/17/22 04:00 Albumin/Globulin Ratio 1.1 % 01/17/22 04:00 Triglycerides 92 mg/dL (2-149) 01/15/22 04:45 Cholesterol 113 mg/dL (50-199) 01/10/22 21:47 LDL Cholesterol Direct 72 mg/dL (50-130) 01/10/22 21:47 HDL Cholesterol 35 mg/dL (40-59) L 01/10/22 21:47 Cholesterol/HDL Ratio 3.22 % 01/10/22 21:47 Procalcitonin 42.50 ng/mL (<0.15) 01/12/22 05:10 Urine Color Yellow (Yellow) 01/12/22 16:51 Urine Turbidity Cloudy (Clear) 01/12/22 16:51 Urine pH 5.0 (5.0-7.0) 01/12/22 16:51 Ur Specific [place] 1.030 (1.003-1.030) 01/12/22 16:51 Urine Protein 30 mg/dl mg/dL (Negative) 01/12/22 16:51 Urine Glucose (UA) Negative mg/dL (Negative) 01/12/22 16:51 Urine Ketones Negative mg/dL (Negative) 01/12/22 16:51 Urine Blood Large (Negative) A 01/12/22 16:51 Urine Nitrite Negative (Negative) 01/12/22 16:51 Ur Reducing Substances Not Reportable 01/12/22 16:51 Urine Bilirubin Negative (Negative) 01/12/22 16:51 Urine Ictotest Not Reportable 01/12/22 16:51 Urine Urobilinogen 0.0 mg/dL (<2.0) 01/12/22 16:51 Ur Leukocyte Esterase Trace (Negative) 01/12/22 16:51 Urine WBC (Auto) 85.0 /HPF (0.0-6.0) H 01/12/22 16:51 Urine RBC (Auto) > 182.0 /HPF (0.0-6.0) 01/12/22 16:51 U Epithel Cells (Auto) 1.0 /HPF (0-13.0) 01/12/22 16:51 Urine WBC Clumps 1+ /HPF 01/12/22 16:51 Hyaline Casts 21 /LPF 01/12/22 16:51 Urine Mucus Few /HPF 01/12/22 16:51 Urine Yeast (Budding) Few /HPF 01/12/22 16:51 Urine Creatinine 224.3 mg/dL (0.1-20.0) H 01/12/22 16:51 Protein/Creatinin Ratio 0.47 01/12/22 16:51 Urine Total Protein 105 mg/dL (5-11.8) H 01/12/22 16:51 Coronavirus (PCR) Negative (Negative) 01/11/22 15:45 Hepatitis A IgM Ab Non-reactive (NonReactive) 01/15/22 04:45 Hep Bs Antigen Non-reactive (Negative) 01/15/22 04:45 Hep B Core IgM Ab Non-reactive (NonReactive) 01/15/22 04:45 Hepatitis C Antibody Non-reactive (NonReactive) 01/15/22 04:45 Blood Type B POSITIVE 01/10/22 21:47 Antibody Screen Negative 01/10/22 21:47 Microbiology: Microbiology 01/11/22 19:41 Peripheral/Venous Blood Culture - Final NO GROWTH AFTER 5 DAYS 01/11/22 19:41 Peripheral/Venous Blood Culture - Final NO GROWTH AFTER 5 DAYS 01/11/22 23:57 Tracheal Aspirate Sputum Culture - Final Joyce/IV: Voiding Method Urinal Active Medications - Current Medications Current Medications: Generic Name Dose Route Start Last Admin Trade Name Freq PRN Reason Stop Dose Admin Acetaminophen 650 mg 01/10/22 23:49 Acetaminophen 325 Mg Tab PO Q6H PRN Pain MILD(1-3)/Fever >100.5/NÚÑEZ Albuterol 2.5 mg 01/11/22 00:19 Albuterol 2.5 Mg/3 Ml Nebu IH Q4HRT PRN Shortness Of Breath Amiodarone HCl 200 mg 01/15/22 22:00 01/17/22 09:01 Amiodarone 200 Mg Tab PO 200 mg BID SHAKEEL Administration Atorvastatin Calcium 80 mg 01/17/22 22:00 Atorvastatin 40 Mg Tab PO QHS SHAKEEL Dextrose 50 ml 01/10/22 23:49 Dextrose 50% In Water (25gm) 50 Ml Syringe IV Q30MIN PRN Hypoglycemia Protocol Famotidine 10 mg 01/13/22 11:00 01/17/22 09:01 Famotidine 10 Mg Tab FEEDTUBE 10 mg BID SHAKEEL Administration Hydrophilic Ointment 1 applic 01/12/22 09:02 Lip Therapy Vaseline TP Q2HR PRN Dry Lips Sodium Chloride 100 mls @ 999 mls/hr 01/14/22 19:45 Nacl 0.9% IV LANE PRN Hypotension Insulin Human Lispro 0 unit 01/16/22 22:00 01/17/22 07:36 Insulin Lispro 100 Unit/Ml SUB-Q Not Given ACHS SHAKEEL Protocol Magnesium Hydroxide 30 ml 01/10/22 23:49 Magnesium Hydroxide (Mom) Oral Liqd Udc PO Q4H PRN Constipation Multi-Ingred Cream/Lotion/Oil/Oint 1 applic 01/12/22 09:02 Mineral Oil/Petrolatum, White Ophth Oint 3.5 Gm OU Q4HR PRN Dry Eye(s) Ondansetron HCl 4 mg 01/10/22 23:49 01/15/22 21:41 Ondansetron 4 Mg/2 Ml Inj IV 4 mg Q8H PRN Administration Nausea And Vomiting Senna/Docusate Sodium 1 tab 01/12/22 10:00 01/17/22 09:01 Sennosides/Docusate Sodium 8.6/50 Mg Tab FEEDTUBE 1 tab BID SHAKEEL Administration Sodium Bicarbonate 1,300 mg 01/13/22 14:00 01/17/22 09:01 Sodium Bicarbonate 650 Mg Tab PO 1,300 mg TID SHAKEEL Administration Sodium Chloride 10 ml 01/11/22 10:00 01/17/22 09:02 Sodium Chloride 0.9% 10 Ml Flush Syringe IV 10 ml BID SHAKEEL Administration Sodium Chloride 10 ml 01/10/22 23:49 Sodium Chloride 0.9% 10 Ml Flush Syringe IV PRN PRN LINE FLUSH Thiamine HCl 100 mg 01/13/22 10:00 01/17/22 09:01 Thiamine 100 Mg Tab FEEDTUBE 100 mg QDAY SHAKEEL Administration Warfarin Sodium 2.5 mg 01/16/22 17:00 01/16/22 17:16 Warfarin 2.5 Mg Tab PO 01/17/22 16:59 2.5 mg DAILY@1700 SHAKEEL Administration d/c this AM- tolerated well Nutrition/Malnutrition Assess - Dietary Evaluation Nutrition/Malnutrition Findings: Nutrition Notes Start: 01/11/22 12:57 Freq: Status: Active Protocol: Document 01/14/22 11:50 AIMEE (Rec: 01/14/22 12:00 AIMEE [email or web address]) Nutrition Notes Initial or Follow up Brief Note Current Diet TF - Vital AF 1.2 at 60ml/hr Labs/Tests K 3.5 BUN 81 Cr 5.2 Pertinent Medications Propofol at 14.16ml/hr ( provides 374 kcal), Thiamine Height 5 ft 9 in Weight 117.934 kg [place] Body Weight (kg) 72.72 BMI 38.4 Weight Status Obese Subjective/Other Information Pt remains on vent support. Observed TF infusing at 50ml/ hr; per RN, pt tolerating TF so far. Per nephrology, no need for dialysis at this time , however, he may need it if renal function starts to decline. Percent of energy/protein needs met: 60% energy 100% pro Burn Absent Trauma Absent #1 Nutrition Diagnosis Inadequate oral intake Diagnosis Progress(for reassessment Continues documentation) Is patient on ventilator? Yes Is Patient Ambulatory and/or Out of Bed No REE-([facility]-confined to bed) [phone] Kcal/Kg value to use for calculation 16 Approximate Energy Requirements Using 1887 kcal/Kg Calculation Used for Recommendations Kcal/kg Additional Notes Pro needs 0.8-1.2g/kg adjBW: 76-114g/day Fluid needs 1ml/kcal Nutrition Intervention Nutrition Support: Increase TF rate to Vital AF 1 .2 at 60ml/hr. Provide 100ml water flush q4h. Kcal 1,728 Protein (gm) 108 Carbohydrates (gm) 159 Fat (gm) 78 Fluid (mL) 1,168 Fiber (gm) 7 Goal #1 TF tolerance Goal #2 TF to meet 65-70% energy and at least 75% pro needs Follow-Up By: 01/17/22 Additional Comments F/U: TF goal rate/tolerance, vent status, renal function, propofol - Malnutrition Assessment Minimum of two criteria: Yes - Attestation Statement I have reviewed and agreed w/ Malnutrition eval & tx plan: Yes
--- NOTE | 2022-01-17 10:40 | Progress Note ---
Assessment and Plan Assessment: * Nonoliguric acute kidney injury secondary to ATN * Acute on chronic HFrEF * Acute hypoxic respiratory failure, status post extubation * Pulmonary edema * Ventricular tachycardia s/p ICD discharge * Coronary artery disease * Hypokalemia * Transaminitis Plan: * Renal function is improved - UOP acceptable, lytes are stable. No further indication for renal replacement therapy * Vascath removed this AM * Dobumtamine gtt discontinued this AM * Diuresis prn * Replete KCl prn * Rate control per cardiology - currently on Amiodarone * Renally dose medications * Avoid nephrotoxins Subjective Date of service: 01/17/22 Principal diagnosis: Acute respiratory failure, acute on chronic HFrEF, MARCIO Interval history: Patient has no complaints. Remains on supplemental oxygen. Reports good UOP Objective - Vital Signs Vital signs: Vital Signs - 12hr 01/16/22 01/17/22 01/17/22 23:00 00:00 01:00 Temperature 98 F Pulse Rate 82 78 81 Pulse Rate [ From Monitor] Respiratory 21 24 23 Rate Blood Pressure 166/85 161/86 144/73 O2 Sat by Pulse 98 97 95 Oximetry 01/17/22 01/17/22 01/17/22 02:00 03:00 04:00 Temperature 97.9 F Pulse Rate 68 69 84 Pulse Rate [ From Monitor] Respiratory 18 17 24 Rate Blood Pressure 153/77 149/85 O2 Sat by Pulse 97 98 97 Oximetry 01/17/22 01/17/22 01/17/22 04:01 05:01 06:00 Temperature Pulse Rate 71 83 79 Pulse Rate [ From Monitor] Respiratory 17 20 Rate Blood Pressure 155/84 155/84 137/78 O2 Sat by Pulse 98 93 Oximetry 01/17/22 01/17/22 01/17/22 07:01 07:18 08:00 Temperature 98.1 F Pulse Rate 76 78 Pulse Rate [ 82 From Monitor] Respiratory 18 20 Rate Blood Pressure 150/91 155/92 O2 Sat by Pulse 94 96 Oximetry 01/17/22 01/17/22 01/17/22 08:12 09:00 10:01 Temperature Pulse Rate 83 77 Pulse Rate [ From Monitor] Respiratory 20 15 Rate Blood Pressure 156/77 156/77 O2 Sat by Pulse 97 97 100 Oximetry - General Appearance General appearance: well-developed, well-nourished EENT: ATNC Respiratory: Present: Decreased Breath Sounds Cardiology: regular, S1S2 Gastrointestinal: normal, no tenderness, no distended Integumentary: warm and dry Neurologic: alert and oriented x3 Musculoskeletal: other (no edema) Psychiatric: cooperative - Lab 01/17/22 05:20 01/17/22 04:00 Most recent lab results ABG pH 7.432 pH Units (7.350-7.450) 01/15/22 04:15 ABG pCO2 34.4 mm Hg 01/15/22 04:15 ABG pO2 101.6 mm Hg (80.0-90.0) H 01/15/22 04:15 ABG HCO3 22.4 mmol/L (20.0-26.0) 01/15/22 04:15 ABG O2 Saturation 97.8 % (95.0-99.0) 01/15/22 04:15 Calcium 8.6 mg/dL (8.4-10.2) 01/17/22 04:00 Phosphorus 3.10 mg/dL (2.5-4.5) 01/17/22 04:00 Magnesium 2.20 mg/dL (1.7-2.3) 01/17/22 04:00 Urine Creatinine 224.3 mg/dL (0.1-20.0) H 01/12/22 16:51 Urine Total Protein 105 mg/dL (5-11.8) H 01/12/22 16:51 Medications & Allergies - Medications Allergies/Adverse Reactions: Allergies aspirin Adverse Reaction (Verified 01/10/22 21:41) Unknown patient is taking warfarin and has been advised to not take aspirin Home Medications: Home Medications Medication Instructions Recorded Confirmed Last Taken Type Isosorbide Mononitrate [Isosorbide 30 mg PO DAILY #30 tab.er.24h 08/20/13 01/14/22 01/15/17 08:00 Rx Mononitrate ER] carvediloL [Coreg] 25 mg PO BID #60 tablet 08/20/13 01/14/22 09/22/18 Rx Furosemide [Lasix] 40 mg PO DAILY #30 tablet 09/17/13 01/14/22 01/15/17 08:00 Rx AtorvaSTATin [Lipitor] 80 mg PO QHS #30 tablet 01/19/17 01/14/22 Unknown Rx amLODIPine 10 mg PO DAILY 09/23/18 01/14/22 09/22/18 History cloNIDine-TTS PATCH [Catapres-Tts 1 patch TD Q7D 09/23/18 01/14/22 09/21/18 History 0.1MG Patch] hydrALAZINE [Apresoline TAB] 50 mg PO TID 09/23/18 01/14/22 09/22/18 History metFORMIN [Glucophage] 500 mg PO BID 09/23/18 01/14/22 Unknown History Potassium Chloride [K-Dur] 10 meq PO QDAY 03/28/19 01/14/22 Unknown History Warfarin [Coumadin] 2.5 mg PO QDAY 03/28/19 01/14/22 Unknown History ISOSORBIDE MONOnitrate [Imdur ER] 30 mg PO QDAY #30 tablet 03/29/19 01/14/22 Unknown Rx Warfarin [Coumadin] 7.5 mg PO DAILY@1700 tablet 03/30/19 01/14/22 Unknown Rx Active Medications: Generic Name Dose Route Start Last Admin Trade Name Freq PRN Reason Stop Dose Admin Acetaminophen 650 mg 01/10/22 23:49 Acetaminophen 325 Mg Tab PO Q6H PRN Pain MILD(1-3)/Fever >100.5/NÚÑEZ Amiodarone HCl 200 mg 01/15/22 22:00 01/17/22 09:01 Amiodarone 200 Mg Tab PO 200 mg BID SHAKEEL Administration Atorvastatin Calcium 80 mg 01/17/22 22:00 Atorvastatin 40 Mg Tab PO QHS SHAKEEL Dextrose 50 ml 01/10/22 23:49 Dextrose 50% In Water (25gm) 50 Ml Syringe IV Q30MIN PRN Hypoglycemia Protocol Famotidine 10 mg 01/17/22 22:00 Famotidine 10 Mg Tab PO BID [facility] Hydrophilic Ointment 1 applic 01/12/22 09:02 Lip Therapy Vaseline TP Q2HR PRN Dry Lips Insulin Human Lispro 0 unit 01/16/22 22:00 01/17/22 07:36 Insulin Lispro 100 Unit/Ml SUB-Q Not Given ACHS [facility] Protocol Magnesium Hydroxide 30 ml 01/10/22 23:49 Magnesium Hydroxide (Mom) Oral Liqd Udc PO Q4H PRN Constipation Multi-Ingred Cream/Lotion/Oil/Oint 1 applic 01/12/22 09:02 Mineral Oil/Petrolatum, White Ophth Oint 3.5 Gm OU Q4HR PRN Dry Eye(s) Ondansetron HCl 4 mg 01/10/22 23:49 01/15/22 21:41 Ondansetron 4 Mg/2 Ml Inj IV 4 mg Q8H PRN Administration Nausea And Vomiting Sodium Bicarbonate 1,300 mg 01/13/22 14:00 01/17/22 09:01 Sodium Bicarbonate 650 Mg Tab PO 1,300 mg TID SHAKEEL Administration Sodium Chloride 10 ml 01/11/22 10:00 01/17/22 09:02 Sodium Chloride 0.9% 10 Ml Flush Syringe IV 10 ml BID SHAKEEL Administration Sodium Chloride 10 ml 01/10/22 23:49 Sodium Chloride 0.9% 10 Ml Flush Syringe IV PRN PRN LINE FLUSH Thiamine HCl 100 mg 01/18/22 10:00 Thiamine 100 Mg Tab PO QDAY SHAKEEL Warfarin Sodium 2.5 mg 01/17/22 17:00 Warfarin 2.5 Mg Tab PO 01/18/22 16:59 DAILY@1700 NR
--- NOTE | 2022-01-17 11:23 | Progress Note ---
Assessment and Plan This is a 56-year-old -[place] male, who follows with Dr. KURTIS Ferrer, with past medical history of aortic regurgitation, non-obstructive CAD (via [facility] 2009) HFrEF, diabetes, hyperlipidemia, hypertension, s/p BI-V ICD ([facility]) Acute on chronic HFrEF Acute Pulmonary edema - copious pink, frothy sputum noted on intubation Acute Hypoxic Respiratory Failure-pulmonology following S/p ICD shock MARCIO-nephrology following Mildly elevated troponin- likely 2/2 to acutely decompensated HF/pulmonary edema/ICD shocks Hyperlipidemia Hypertension DM - mangement per primary team S/p Bi-V ICD ([facility]) H/o Stroke (OAC with Coumadin since 11/2020) H/o Prostate CA (2020) Home medications: Amlodipine 5 mg p.o. daily, atorvastatin 80 mg p.o. nightly, clonidine 0.1 mg transdermal patch q. 7 days, carvedilol 25 mg p.o. twice daily, hydralazine 50 mg p.o. 3 times daily, Imdur 30 mg p.o. every morning, Lasix 40 mg p.o. daily, metformin 500 mg p.o. twice daily, warfarin 5 mg tablet p.o. daily. Echocardiogram 03/2019: Mild to moderate concentric LV hypertrophy is observed. The LV size is moderate to severely dilated. RV global systolic function is mildly reduced. Mild aortic regurgitation. RV systolic pressure is calculated at 21 mmHg. Global LV systolic function is severely decreased. Estimated EF is 20 to 25%. Cath- 05/2010 at [facility]: Nonobstructive CAD Echo 01/11/2022-EF 10 to 15%. LV is severely dilated. Severe global hypokinesis of LV. Left ventricular diastolic function is indeterminate. Right ventricle is dilated. Right ventricle is hypokinetic. Left atrium is mildly dilated. Trace to mild aortic regurgitation. Mild mitral regurgitation. Mild tricuspid regurgitation. IVC is dilated. IVC collapses with less than 50% of inspiration Plan: Per staff/ducomentaion patient urine output has improved and patient having improved renal function Will stop dobutamin gtt at this time and continue to monitor renal function. If renal functions worsens will consider restarting inotropic support Will defer volume management to nephrology No FABY or ARB due to renal function Continue statin however, no asa due to allergy. Continue Amiodorone 200 mg p.o. twice daily Patient seen in conjunction with Dr. Benitez who agrees with the assessment and management of this patient. - Patient Problems (1) MARCIO (acute kidney injury) Current Visit: No Status: Acute (2) Non-ischemic cardiomyopathy Current Visit: No Status: Chronic (3) Acute pulmonary edema Current Visit: No Status: Acute (4) CAD (coronary artery disease) Current Visit: No Status: Chronic (5) Acute respiratory failure with hypoxemia Current Visit: No Status: Acute (6) Acute on chronic HFrEF (heart failure with reduced ejection fraction) Current Visit: No Status: Acute (7) Ischemic cardiomyopathy Current Visit: No Status: Chronic (8) Automatic implantable cardioverter-defibrillator in situ Current Visit: No Status: Chronic (9) HTN (hypertension) Current Visit: No Status: Chronic (10) Obesity Current Visit: No Status: Chronic (11) History of CVA (cerebrovascular accident) Current Visit: No Status: Chronic (12) Implantable cardioverter-defibrillator (ICD) discharge Current Visit: Yes Status: Acute (13) Ventricular tachycardia (paroxysmal) Current Visit: Yes Status: Acute Subjective Date of service: 01/17/22 Principal diagnosis: Acute respiratory failure, acute on chronic HFrEF, MARCIO Interval history: Patient resting in bed in no acute distress Paced 70s RBBB and PVCs Objective Vital Signs Temp Pulse Pulse Resp BP Pulse Ox 01/17/22 11:00 68 17 125/70 99 01/17/22 10:01 77 15 156/77 100 01/17/22 09:00 83 20 156/77 97 01/17/22 08:12 97 01/17/22 08:00 78 82 20 155/92 96 01/17/22 07:18 98.1 F 01/17/22 07:01 76 18 150/91 94 01/17/22 06:00 79 20 137/78 93 01/17/22 05:01 83 17 155/84 01/17/22 04:01 71 155/84 98 01/17/22 04:00 97.9 F 84 24 97 01/17/22 03:00 69 17 149/85 98 01/17/22 02:00 68 18 153/77 97 01/17/22 01:00 81 23 144/73 95 01/17/22 00:00 98 F 78 24 161/86 97 01/16/22 23:00 82 21 166/85 98 01/16/22 22:01 85 14 161/92 01/16/22 21:00 85 7 L 161/92 97 01/16/22 20:00 82 24 138/54 97 01/16/22 19:54 98.9 F 01/16/22 19:00 83 23 153/75 97 01/16/22 18:01 85 24 142/55 92 01/16/22 17:21 98.1 F 01/16/22 17:01 79 15 131/48 92 01/16/22 16:01 80 140/71 01/16/22 16:00 98.4 F 80 20 95 01/16/22 15:00 70 12 140/71 98 01/16/22 14:00 76 17 151/68 98 01/16/22 13:00 69 17 144/75 98 01/16/22 12:01 87 20 135/69 01/16/22 12:00 98.3 F 74 20 95 - Physical Examination General: No Apparent Distress HEENT: Positive: PERRL Neck: Positive: trachea midline Cardiac: Positive: Reg Rate and Rhythm Lungs: Positive: Decreased Breath Sounds Neuro: Positive: Grossly Intact Abdomen: Positive: Active Bowel Sounds Skin: Negative: Rash Extremities: Absent: edema (ble) - Labs and Meds Cardiac Enzymes 01/17/22 Range/Units 04:00 AST 106 H (5-40) units/L Coagulation 01/17/22 Range/Units 05:20 PT 17.5 H (12.2-14.9) Sec. INR 1.28 H (0.87-1.13) CBC 01/17/22 Range/Units 05:20 WBC 7.3 (4.5-11.0) K/mm3 RBC 4.24 (3.65-5.03) M/mm3 Hgb 11.4 L (11.8-15.2) gm/dl Hct 36.6 (35.5-45.6) % Plt Count 191 (140-440) K/mm3 Comprehensive Metabolic Panel 01/17/22 Range/Units 04:00 Sodium 145 (137-145) mmol/L Potassium 3.5 L (3.6-5.0) mmol/L Chloride 106.6 (98-107) mmol/L Carbon Dioxide 28 (22-30) mmol/L BUN 55 H (9-20) mg/dL Creatinine 2.6 H (0.8-1.3) mg/dL Glucose 94 (75-100) mg/dL Calcium 8.6 (8.4-10.2) mg/dL AST 106 H (5-40) units/L ALT 262 H (7-56) units/L Alkaline Phosphatase 68 (35-129) units/L Total Protein 6.5 (6.3-8.2) g/dL Albumin 3.4 L (3.9-5) g/dL - Imaging and Cardiology EKG: report reviewed, image reviewed Echo: report reviewed - Telemetry EKG Rhythm: Sinus Rhythm - EKG Sinus rhythms and dysrhythmias: sinus rhythm (RBBB) - Allied health notes Allied health notes reviewed: nursing
[2022-01-17] MEDS ORDERED: POTASSIUM CHLORIDE ER 20 MEQ TAB PO SCH (11:43)
[2022-01-17] MEDS ORDERED: WARFARIN 2.5 MG TAB PO NR (17:00)
[2022-01-17] MEDS: FAMOTIDINE 10 MG TAB PO SCH (21:35)
[2022-01-17] MEDS: DOCUSATE SODIUM 100 MG CAP PO SCH (21:36)
[2022-01-17] MEDS ORDERED: SENNOSIDES/DOCUSATE SODIUM 8.6/50 MG TAB PO SCH (22:00)
[2022-01-18] MEDS: INSULIN LISPRO 100 UNIT/ML SUB-Q SCH ×4 (07:56→22:01)
[2022-01-18] MEDS: THIAMINE 100 MG TAB PO SCH (09:01)
[2022-01-18] MEDS: DOCUSATE SODIUM 100 MG CAP PO SCH ×2 (09:01→22:01)
[2022-01-18] MEDS: SODIUM BICARBONATE 650 MG TAB PO SCH ×3 (09:01→22:00)
[2022-01-18] MEDS: AMIODARONE 200 MG TAB PO SCH ×2 (09:01→22:01)
[2022-01-18] MEDS: FAMOTIDINE 10 MG TAB PO SCH ×2 (09:01→22:00)
--- NOTE | 2022-01-18 09:07 | Progress Note ---
Assessment and Plan Assessment: * Nonoliguric acute kidney injury secondary to ATN * Acute on chronic HFrEF * Acute hypoxic respiratory failure, status post extubation * Pulmonary edema * Ventricular tachycardia s/p ICD discharge * Coronary artery disease * Hypokalemia * Transaminitis Plan: * AM labs are pending * Lasix 40mg IV x 1 dose * Replete KCl prn * Rate control per cardiology - currently on Amiodarone * Renally dose medications * Avoid nephrotoxins * Strict I/O ordered Subjective Date of service: 01/18/22 Principal diagnosis: Acute respiratory failure, acute on chronic HFrEF, MARCIO Interval history: Patient reports SOB this AM - reports SOB began overnight. He is currently on 5L [place] oxygen Objective - Vital Signs Vital signs: Vital Signs - 12hr 01/17/22 01/17/22 01/17/22 22:00 23:00 23:55 Temperature Pulse Rate 80 72 88 Pulse Rate [ From Monitor] Respiratory 22 20 25 H Rate Blood Pressure 166/101 153/93 136/81 O2 Sat by Pulse 96 96 94 Oximetry 01/18/22 01/18/22 01/18/22 00:00 01:00 01:48 Temperature 98.5 F Pulse Rate 79 80 Pulse Rate [ From Monitor] Respiratory 17 17 21 Rate Blood Pressure 136/81 124/70 O2 Sat by Pulse 96 98 98 Oximetry 01/18/22 01/18/22 01/18/22 02:00 03:00 03:44 Temperature 98 F Pulse Rate 76 70 Pulse Rate [ From Monitor] Respiratory 19 17 Rate Blood Pressure 139/84 139/74 O2 Sat by Pulse 95 95 Oximetry 01/18/22 01/18/22 01/18/22 04:00 05:00 06:01 Temperature 97.6 F Pulse Rate 69 60 79 Pulse Rate [ From Monitor] Respiratory 15 14 12 Rate Blood Pressure 125/70 120/61 138/81 O2 Sat by Pulse 97 95 92 Oximetry 01/18/22 01/18/22 01/18/22 07:00 07:18 07:43 Temperature 97.9 F Pulse Rate 73 Pulse Rate [ From Monitor] Respiratory 21 Rate Blood Pressure 159/84 O2 Sat by Pulse 94 97 Oximetry 01/18/22 01/18/22 08:00 09:00 Temperature Pulse Rate 77 87 Pulse Rate [ 87 From Monitor] Respiratory 18 22 Rate Blood Pressure 154/85 174/96 O2 Sat by Pulse 91 94 Oximetry - General Appearance General appearance: well-developed, well-nourished EENT: ATNC Respiratory: Present: Decreased Breath Sounds, Other (occasional wheeze) Cardiology: S1S2 Gastrointestinal: normoactive bowel sounds, no tenderness, distended Integumentary: no rash, warm and dry Neurologic: alert and oriented x3 Musculoskeletal: other (no edema) Psychiatric: cooperative - Lab 01/17/22 05:20 01/17/22 04:00 Most recent lab results ABG pH 7.432 pH Units (7.350-7.450) 01/15/22 04:15 ABG pCO2 34.4 mm Hg 01/15/22 04:15 ABG pO2 101.6 mm Hg (80.0-90.0) H 01/15/22 04:15 ABG HCO3 22.4 mmol/L (20.0-26.0) 01/15/22 04:15 ABG O2 Saturation 97.8 % (95.0-99.0) 01/15/22 04:15 Calcium 8.6 mg/dL (8.4-10.2) 01/17/22 04:00 Phosphorus 3.10 mg/dL (2.5-4.5) 01/17/22 04:00 Magnesium 2.20 mg/dL (1.7-2.3) 01/17/22 04:00 Urine Creatinine 224.3 mg/dL (0.1-20.0) H 01/12/22 16:51 Urine Total Protein 105 mg/dL (5-11.8) H 01/12/22 16:51 Medications & Allergies - Medications Allergies/Adverse Reactions: Allergies aspirin Adverse Reaction (Verified 01/10/22 21:41) Unknown patient is taking warfarin and has been advised to not take aspirin Home Medications: Home Medications Medication Instructions Recorded Confirmed Last Taken Type Isosorbide Mononitrate [Isosorbide 30 mg PO DAILY #30 tab.er.24h 08/20/13 01/14/22 01/15/17 08:00 Rx Mononitrate ER] carvediloL [Coreg] 25 mg PO BID #60 tablet 08/20/13 01/14/22 09/22/18 Rx Furosemide [Lasix] 40 mg PO DAILY #30 tablet 09/17/13 01/14/22 01/15/17 08:00 Rx AtorvaSTATin [Lipitor] 80 mg PO QHS #30 tablet 01/19/17 01/14/22 Unknown Rx amLODIPine 10 mg PO DAILY 09/23/18 01/14/22 09/22/18 History cloNIDine-TTS PATCH [Catapres-Tts 1 patch TD Q7D 09/23/18 01/14/22 09/21/18 History 0.1MG Patch] hydrALAZINE [Apresoline TAB] 50 mg PO TID 09/23/18 01/14/22 09/22/18 History metFORMIN [Glucophage] 500 mg PO BID 09/23/18 01/14/22 Unknown History Potassium Chloride [K-Dur] 10 meq PO QDAY 03/28/19 01/14/22 Unknown History Warfarin [Coumadin] 2.5 mg PO QDAY 03/28/19 01/14/22 Unknown History ISOSORBIDE MONOnitrate [Imdur ER] 30 mg PO QDAY #30 tablet 03/29/19 01/14/22 Unknown Rx Warfarin [Coumadin] 7.5 mg PO DAILY@1700 tablet 03/30/19 01/14/22 Unknown Rx Active Medications: Generic Name Dose Route Start Last Admin Trade Name Freq PRN Reason Stop Dose Admin Acetaminophen 650 mg 01/10/22 23:49 Acetaminophen 325 Mg Tab PO Q6H PRN Pain MILD(1-3)/Fever >100.5/NÚÑEZ Amiodarone HCl 200 mg 01/15/22 22:00 01/18/22 09:01 Amiodarone 200 Mg Tab PO 200 mg BID SHAKEEL Administration Dextrose 50 ml 01/10/22 23:49 Dextrose 50% In Water (25gm) 50 Ml Syringe IV Q30MIN PRN Hypoglycemia Protocol Docusate Sodium 100 mg 01/17/22 22:00 01/18/22 09:01 Docusate Sodium 100 Mg Cap PO 100 mg BID SHAKEEL Administration Famotidine 10 mg 01/17/22 22:00 01/18/22 09:01 Famotidine 10 Mg Tab PO 10 mg BID SHAKEEL Administration Hydrophilic Ointment 1 applic 01/12/22 09:02 Lip Therapy Vaseline TP Q2HR PRN Dry Lips Insulin Human Lispro 0 unit 01/16/22 22:00 01/18/22 07:56 Insulin Lispro 100 Unit/Ml SUB-Q Not Given ACHS SHAKEEL Protocol Magnesium Hydroxide 30 ml 01/10/22 23:49 Magnesium Hydroxide (Mom) Oral Liqd Udc PO Q4H PRN Constipation Ondansetron HCl 4 mg 01/10/22 23:49 01/15/22 21:41 Ondansetron 4 Mg/2 Ml Inj IV 4 mg Q8H PRN Administration Nausea And Vomiting Sodium Bicarbonate 1,300 mg 01/13/22 14:00 01/18/22 09:01 Sodium Bicarbonate 650 Mg Tab PO 1,300 mg TID SHAKEEL Administration Sodium Chloride 10 ml 01/11/22 10:00 01/18/22 09:00 Sodium Chloride 0.9% 10 Ml Flush Syringe IV 10 ml BID SHAKEEL Administration Sodium Chloride 10 ml 01/10/22 23:49 Sodium Chloride 0.9% 10 Ml Flush Syringe IV PRN PRN LINE FLUSH Thiamine HCl 100 mg 01/18/22 10:00 01/18/22 09:01 Thiamine 100 Mg Tab PO 100 mg QDAY SHAKEEL Administration Warfarin Sodium 2.5 mg 01/17/22 17:00 01/17/22 16:52 Warfarin 2.5 Mg Tab PO 01/18/22 16:59 2.5 mg DAILY@1700 NR Administration
[2022-01-18 09:37] LABS: INR 1.34 (0.87-1.13)
[2022-01-18 09:47] LABS: Calcium 8.8 mg/dL (8.4-10.2)
[2022-01-18 09:50] LABS: Albumin 3.3 g/dL (3.9-5); Bilirubin,Direct 0.4 mg/dL (0-0.2)
[2022-01-18] MEDS: FUROSEMIDE 40 MG/4 ML INJ IV SCH (09:52)
--- NOTE | 2022-01-18 10:54 | Progress Note ---
Assessment and Plan This is a 56-year-old -Citizen Of [place] male, who follows with Dr. KURTIS Ferrer, with past medical history of aortic regurgitation, non-obstructive CAD (via [facility] 2009) HFrEF, diabetes, hyperlipidemia, hypertension, s/p BI-V ICD ([facility] [facility]) Acute on chronic HFrEF Acute Pulmonary edema - copious pink, frothy sputum noted on intubation Acute Hypoxic Respiratory Failure-pulmonology following S/p ICD shock MARCIO-nephrology following Mildly elevated troponin- likely 2/2 to acutely decompensated HF/pulmonary edema/ICD shocks Hyperlipidemia Hypertension DM - mangement per primary team S/p Bi-V ICD ([facility] [facility]) H/o Stroke (OAC with Coumadin since 11/2020) H/o Prostate CA (2020) Home medications: Amlodipine 5 mg p.o. daily, atorvastatin 80 mg p.o. nightly, clonidine 0.1 mg transdermal patch q. 7 days, carvedilol 25 mg p.o. twice daily, hydralazine 50 mg p.o. 3 times daily, Imdur 30 mg p.o. every morning, Lasix 40 mg p.o. daily, metformin 500 mg p.o. twice daily, warfarin 5 mg tablet p.o. daily. Echocardiogram 03/2019: Mild to moderate concentric LV hypertrophy is observed. The LV size is moderate to severely dilated. RV global systolic function is mildly reduced. Mild aortic regurgitation. RV systolic pressure is calculated at 21 mmHg. Global LV systolic function is severely decreased. Estimated EF is 20 to 25%. Cath- 05/2010 at [facility]: Nonobstructive CAD Echo 01/11/2022-EF 10 to 15%. LV is severely dilated. Severe global hypokinesis of LV. Left ventricular diastolic function is indeterminate. Right ventricle is dilated. Right ventricle is hypokinetic. Left atrium is mildly dilated. Trace to mild aortic regurgitation. Mild mitral regurgitation. Mild tricuspid regurgitation. IVC is dilated. IVC collapses with less than 50% of inspiration Plan: Renal function continues to improve. 2.2 today (down from 2.6 yesterday) Initiate Coreg 25 mg PO BID. If creatinine < 2 tomorrow, will initiate Entresto. (Okay per nephrology) No ARNi today for renal function. Reevaluate in AM. Will defer volume management to nephrology for now. Continue Amiodorone 200 mg p.o. twice daily Continue statin No asa due to allergy. At discharge, will initiate lasix and aldactone and patient will need a f/u in the [facility]. Patient seen in conjunction with Dr. Benitez who agrees with the assessment and management of this patient. - Patient Problems (1) Elevated troponin Current Visit: Yes Status: Acute (2) Implantable cardioverter-defibrillator (ICD) discharge Current Visit: Yes Status: Acute (3) MARCIO (acute kidney injury) Current Visit: No Status: Acute (4) Acute on chronic HFrEF (heart failure with reduced ejection fraction) Current Visit: No Status: Acute (5) Acute pulmonary edema Current Visit: No Status: Acute (6) Acute respiratory failure with hypoxemia Current Visit: No Status: Acute Subjective Date of service: 01/18/22 Principal diagnosis: Acute respiratory failure, acute on chronic HFrEF, MARCIO Interval history: Patient seen and examined in the intensive care unit today. He is awaiting transfer to telemetry floor. He is doing much better, sitting up in the chair. Telemetry: V paced at 80. Telemetry review revealed episode of 17 beat NSVT. Will reinitiate beta-christopher today. Intake & Output 01/15/22 01/16/22 01/17/22 01/18/22 23:59 23:59 23:59 23:59 Intake Total 1604.954 804.176 936.901 260 Output Total 2595 1900 1400 550 Balance -990.046 -1095.824 -463.099 -290 Weight 117.934 kg Objective Vital Signs Temp Pulse Pulse Resp BP Pulse Ox 01/18/22 10:01 89 14 168/101 99 01/18/22 09:00 87 22 174/96 94 01/18/22 08:00 77 87 18 154/85 91 01/18/22 07:43 97 01/18/22 07:18 97.9 F 01/18/22 07:00 73 21 159/84 94 01/18/22 06:01 79 12 138/81 92 01/18/22 05:00 60 14 120/61 95 01/18/22 04:00 97.6 F 69 15 125/70 97 01/18/22 03:44 98 F 01/18/22 03:00 70 17 139/74 95 01/18/22 02:00 76 19 139/84 95 01/18/22 01:48 21 98 01/18/22 01:00 80 17 124/70 98 01/18/22 00:00 98.5 F 79 17 136/81 96 01/17/22 23:55 88 25 H 136/81 94 01/17/22 23:00 72 20 153/93 96 01/17/22 22:00 80 22 166/101 96 01/17/22 21:00 68 17 128/68 100 01/17/22 20:40 65 18 127/64 96 01/17/22 20:39 98 01/17/22 20:01 74 19 153/85 95 01/17/22 20:00 98.4 F 86 30 H 91 01/17/22 19:00 74 15 154/92 98 01/17/22 18:29 97.4 F L 01/17/22 18:00 69 18 140/75 100 01/17/22 17:00 71 20 149/72 100 01/17/22 16:57 97.3 F L 01/17/22 16:00 74 76 14 133/77 97 01/17/22 15:00 71 20 127/78 99 01/17/22 14:00 69 17 136/72 99 01/17/22 13:01 75 10 L 120/72 100 01/17/22 12:05 98.0 F 01/17/22 12:01 81 16 131/67 97 01/17/22 12:00 80 77 16 98 01/17/22 11:00 68 17 125/70 99 - Physical Examination General: No Apparent Distress HEENT: Positive: PERRL Neck: Positive: trachea midline Cardiac: Positive: Reg Rate and Rhythm, S1/S2. Negative: Audible Murmur Lungs: Positive: Rales (Left lower lobe, posterior) Neuro: Positive: Grossly Intact Abdomen: Positive: Soft, Active Bowel Sounds Skin: Negative: Rash Extremities: Present: +1 Edema (Bilateral lower extremity, improving) - Labs and Meds Cardiac Enzymes 01/18/22 Range/Units 09:15 AST 60 H (5-40) units/L Coagulation 01/18/22 Range/Units 09:15 PT 18.2 H (12.2-14.9) Sec. INR 1.34 H (0.87-1.13) Comprehensive Metabolic Panel 07/12/22 07/12/22 Range/Units 09:15 09:15 Sodium 143 (137-145) mmol/L Potassium 3.7 (3.6-5.0) mmol/L Chloride 104.5 (98-107) mmol/L Carbon Dioxide 28 (22-30) mmol/L BUN 47 H (9-20) mg/dL Creatinine 2.2 H (0.8-1.3) mg/dL Glucose 140 H (75-100) mg/dL Calcium 8.8 (8.4-10.2) mg/dL Direct Bilirubin 0.4 H (0-0.2) mg/dL Indirect Bilirubin 0.6 mg/dL AST 60 H (5-40) units/L ALT 212 H (7-56) units/L Alkaline Phosphatase 64 (35-129) units/L Total Protein 6.7 (6.3-8.2) g/dL Albumin 3.3 L (3.9-5) g/dL - Imaging and Cardiology EKG: report reviewed, image reviewed Echo: report reviewed - Telemetry EKG Rhythm: Paced - EKG Sinus rhythms and dysrhythmias: sinus rhythm (RBBB) - Allied health notes Allied health notes reviewed: nursing
[2022-01-18] MEDS: carvediloL 25 MG TAB PO SCH ×2 (11:09→22:01)
--- NOTE | 2022-01-18 11:31 | Progress Note ---
Assessment and Plan Assessment and plan: This is a 56-year-old -[place] male, who follows with Dr. KURTIS Ferrer, with past medical history of aortic regurgitation, non-obstructive CAD (via [facility] 2009) HFrEF, diabetes, hyperlipidemia, hypertension, s/p BI-V ICD ([employer]), who presented to [facility] with complaints of chest pain. HPI obtained from review of records due to patient condition, no family at [facility]. Patient was brought to the emergency department via EMS approximately 2135 on 01/10/2022 for chest pain. The transmitted EKG strip from EMS was concerning for STEMI, however, upon review by on-call trimmer tailer, no STEMI on EKG. The patient had stated around approximately 6:00 pm ART DISPLAY MAKER that he had experienced 3 episodes of dizziness followed by a severe thump in his chest. Review of records revealed that patient had an episode of VT and is s/p ICD shock. Unclear if patient is medically compliant with heart failure medications or dietary/fluid restrictions. Upon examination in the emergency department today, 01/11/2022, patient tachypneic, tachycardic, and in acute respiratory distress. The decision was made by IMS/ED MD to intubate the patient, however, prior to intubation, the pat ient did deny chest pain and denied tenderness to palpation of his chest wall. Cardiology is consulted for acute heart failure. 7- admit 01/11: S/p emergent intubation by the ED physician due to increase WOB, tachypnea, and lethagy. [place] frothy sputum noted in ETT, fulminant pulmonary edema. Additional 40mg Iv lasix administered. Patient is Currently on high vent setting, 100% Fio2 and 16 of Peep. SPO2 remains labile, repeat ABG pending. CCM on consult for vent management. ST with BBB noted on the monitor, on amiodarone gtt for VTach per Cardio, VSS, echo pending. Monitor electrolytes and replete as needed. 7: Stable on the vent this am. This am ABG and Cxr noted. Now on pressors for hypotension, remains on amiodarone gtt. Accelerated junctional rhythm noted on the monitor this am, Dobutamine gtt held. 2D Echo pending. With worsen renal function this am, now oliguric, only 200cc in last 24hrs. IV lasix held, Nephrology consulted. Patient remains coagulopathic, per records patient was on Coumadin at home. INR 3.09 this am, Hold AC for now. 01/13: Remains stable on the vent, down to 50% Fio2 and 8 of peep this am. Plan for SAT trial this am to assess mentation, plan for possible PSV trial in the am. Patient is off pressors this am, remains on Amio gtt. Remains in a ju nctional rhythm with frequent ectopy. Enteral nutrition initiated. Remains oliguric with worsening renal function, awaiting Nephrology final recs. 01/14: Following commands this am, continue vent wean for PSV trial later on today or tomorrow. Remains on Amio gtt, back on dobutamine gtt per Cardio, EF 10- to 15%. Patient remains afebrile and off pressors, VSS, cultures with NGTD. IV Abx D/C for now. With worsen renal function this am, but making urine this am. Awaiting Nephro recs. Continue to monitor PT/INR and for s/s of any active bleeding. Continue to hold AC for now. 01/15: Remains on Amio and dobutamine gtt, stable on th event, following commands. Plan for PSV trial this am for possible extubation. Good UOP in last 24hrs, mild improvement in renal function. Trialysis cath inserted 01-17 to PO amio; dc dobutamine; transfer orders 01-18 added coreg; floor transfer pending neuro: acute pain H/o Stroke (OAC with Coumadin since 11/2020) pain well controlled prn pain meds PT/OT OOB CV a/c afib; ac hf; hx HLD; hx htnAcute on chronic HFrEF;S/p Bi-V ICD ([employer]) Acute Pulmonary edema - copious pink, frothy sputum noted on intubation Acute Hypoxic Respiratory Failure-pulmonology following S/p ICD shock HTN Mildly elevated troponin- likely 2/2 to acutely decompensated HF/pulmonary edema/ICD shocks a/c afib on coumadin INR goal 2-3 1.3 this AM amio to po 01-17 started coreg this AM d/c 01-17 cards following resume home meds as appropriate not on ASA due to allergy Resp-nap NC PRN GI- transaminitis trend LFT avoid hepatotoxins statin held 01-17--- continue to reevaluate and add when clinically appropriate hepatitis neg diet as tolerated tolerating renal diet pepcid on coumadin bowel reg : MARCIO; hypok; hx prostate ca joyce d/c 01-16 intake and output follow and replace electrolytes as needed k 3.7 this AM supplement given this AM given lasix 40 mg IV this AM good response to lasix today vascath to be d/c prior to transfer to floor AVOID nephrotoxin trend Cr downtrending today nephrology following bicarb TID Heme- on AC daily INR coumadin goal INR 2-3 trend LFT no bleeding on exam VTE on coumadin ID- nap afebrile covid neg Endo- stress hyperglycemia; DM SSI PRN resume home metformin when appropriate PLAN- to floor when bed available Disposition Plan: transfer to telemetry when bed available Total Time Spent with Patient (Minutes): 60 min non critical care History Interval history: no acute events overnight Hospitalist Physical - Constitutional Vitals: Temp Pulse Resp BP Pulse Ox 97.9 F 84 18 146/80 97 01/18/22 07:18 01/18/22 11:09 01/18/22 11:00 01/18/22 11:09 01/18/22 11:00 General appearance: Present: no acute distress, well-nourished, obese - EENT Eyes: Present: PERRL, EOM intact ENT: hearing intact, clear oral mucosa, dentition normal - Neck Neck: Present: supple, rigidity - Respiratory Respiratory effort: normal - Cardiovascular Rhythm: regular Heart Sounds: Present: S1 & S2 - Extremities Extremities: no ischemia Peripheral Pulses: within normal limits - Abdominal General gastrointestinal: soft - Integumentary Integumentary: Present: clear, warm, dry - Psychiatric Psychiatric: appropriate mood/affect, cooperative - Neurologic Neurologic: CNII-XII intact HEART Score - HEART Score EKG: Non-specific Age: 45-65 Risk factors: > 3 risk factors or hx of atherosclerotic disease Troponin: Troponin T 0.075 ng/mL (0.00-0.029) H D 01/11/22 04:20 Troponin: 1-3x normal limit - Critical Actions Critical Actions: 4-6 pts:12-16.6% risk of adverse cardiac event. Should be admitted Results - Labs CBC & Chem 7: 01/17/22 05:20 01/18/22 09:15 Labs: Laboratory Last Values WBC 7.3 K/mm3 (4.5-11.0) 01/17/22 05:20 RBC 4.24 M/mm3 (3.65-5.03) 01/17/22 05:20 Hgb 11.4 gm/dl (11.8-15.2) L 01/17/22 05:20 Hct 36.6 % (35.5-45.6) 01/17/22 05:20 MCV 86 fl (84-94) 01/17/22 05:20 MCH 27 pg (28-32) L 01/17/22 05:20 MCHC 31 % (32-34) L 01/17/22 05:20 RDW 19.1 % (13.2-15.2) H 01/17/22 05:20 Plt Count 191 K/mm3 (140-440) 01/17/22 05:20 Lymph % (Auto) 5.0 % (13.4-35.0) L 01/13/22 08:28 [place] % (Auto) 6.5 % (0.0-7.3) 01/13/22 08:28 Eos % (Auto) 0.1 % (0.0-4.3) 01/13/22 08:28 Baso % (Auto) 0.2 % (0.0-1.8) 01/13/22 08:28 Lymph # (Auto) 0.6 K/mm3 (1.2-5.4) L 01/13/22 08:28 [place] # (Auto) 0.8 K/mm3 (0.0-0.8) 01/13/22 08:28 Eos # (Auto) 0.0 K/mm3 (0.0-0.4) 01/13/22 08:28 Baso # (Auto) 0.0 K/mm3 (0.0-0.1) 01/13/22 08:28 Seg Neutrophils % 88.2 % (40.0-70.0) H 01/13/22 08:28 Seg Neutrophils # 10.6 K/mm3 (1.8-7.7) H 01/13/22 08:28 PT 18.2 Sec. (12.2-14.9) H 01/18/22 09:15 INR 1.34 (0.87-1.13) H 01/18/22 09:15 APTT 38.8 Sec. (24.2-36.6) H 01/10/22 21:47 ABG pH 7.432 pH Units (7.350-7.450) 01/15/22 04:15 ABG pCO2 34.4 mm Hg 01/15/22 04:15 ABG pO2 101.6 mm Hg (80.0-90.0) H 01/15/22 04:15 ABG HCO3 22.4 mmol/L (20.0-26.0) 01/15/22 04:15 ABG O2 Saturation 97.8 % (95.0-99.0) 01/15/22 04:15 ABG O2 Content 15.2 (0.0-44) 01/15/22 04:15 ABG Base Excess -1.4 mmol/L (-2.0-3.0) 01/15/22 04:15 ABG Hemoglobin 11.2 gm/dl (14.0-18.0) L 01/15/22 04:15 ABG Carboxyhemoglobin 1.5 % (0.0-5.0) 01/15/22 04:15 ABG Methemoglobin 0.6 % (0.0-1.5) 01/15/22 04:15 Oxyhemoglobin 95.8 % (95.0-99.0) 01/15/22 04:15 FiO2 35 % 01/15/22 04:15 Sodium 143 mmol/L (137-145) 01/18/22 09:15 Potassium 3.7 mmol/L (3.6-5.0) 01/18/22 09:15 Chloride 104.5 mmol/L (98-107) 01/18/22 09:15 Carbon Dioxide 28 mmol/L (22-30) 01/18/22 09:15 Anion Gap 14 mmol/L 01/18/22 09:15 BUN 47 mg/dL (9-20) H 01/18/22 09:15 Creatinine 2.2 mg/dL (0.8-1.3) H 01/18/22 09:15 Estimated GFR 38 ml/min 01/18/22 09:15 BUN/Creatinine Ratio 21 % 01/18/22 09:15 Glucose 140 mg/dL (75-100) H 01/18/22 09:15 POC Glucose 100 mg/dL (70-105) 01/17/22 21:06 Lactic Acid 4.00 mmol/L (0.7-2.0) H* 01/12/22 15:23 Calcium 8.8 mg/dL (8.4-10.2) 01/18/22 09:15 Phosphorus 3.10 mg/dL (2.5-4.5) 01/17/22 04:00 Magnesium 2.20 mg/dL (1.7-2.3) 01/17/22 04:00 Total Bilirubin 1.00 mg/dL (0.1-1.2) 01/18/22 09:15 Direct Bilirubin 0.4 mg/dL (0-0.2) H 01/18/22 09:15 Indirect Bilirubin 0.6 mg/dL 01/18/22 09:15 AST 60 units/L (5-40) H 01/18/22 09:15 ALT 212 units/L (7-56) H 01/18/22 09:15 Alkaline Phosphatase 64 units/L (35-129) 01/18/22 09:15 Total Creatine Kinase 202 units/L (55-170) H 01/12/22 15:23 Troponin T 0.075 ng/mL (0.00-0.029) H D 01/11/22 04:20 C-Reactive Protein 13.20 mg/dL (0.00-1.30) H 01/12/22 05:10 Total Protein 6.7 g/dL (6.3-8.2) 01/18/22 09:15 Albumin 3.3 g/dL (3.9-5) L 01/18/22 09:15 Albumin/Globulin Ratio 1.0 % 01/18/22 09:15 Triglycerides 92 mg/dL (2-149) 01/15/22 04:45 Cholesterol 113 mg/dL (50-199) 01/10/22 21:47 LDL Cholesterol Direct 72 mg/dL (50-130) 01/10/22 21:47 HDL Cholesterol 35 mg/dL (40-59) L 01/10/22 21:47 Cholesterol/HDL Ratio 3.22 % 01/10/22 21:47 Procalcitonin 42.50 ng/mL (<0.15) 01/12/22 05:10 Urine Color Yellow (Yellow) 01/12/22 16:51 Urine Turbidity Cloudy (Clear) 01/12/22 16:51 Urine pH 5.0 (5.0-7.0) 01/12/22 16:51 Ur Specific [place] 1.030 (1.003-1.030) 01/12/22 16:51 Urine Protein 30 mg/dl mg/dL (Negative) 01/12/22 16:51 Urine Glucose (UA) Negative mg/dL (Negative) 01/12/22 16:51 Urine Ketones Negative mg/dL (Negative) 01/12/22 16:51 Urine Blood Large (Negative) A 01/12/22 16:51 Urine Nitrite Negative (Negative) 01/12/22 16:51 Ur Reducing Substances Not Reportable 01/12/22 16:51 Urine Bilirubin Negative (Negative) 01/12/22 16:51 Urine Ictotest Not Reportable 01/12/22 16:51 Urine Urobilinogen 0.0 mg/dL (<2.0) 01/12/22 16:51 Ur Leukocyte Esterase Trace (Negative) 01/12/22 16:51 Urine WBC (Auto) 85.0 /HPF (0.0-6.0) H 01/12/22 16:51 Urine RBC (Auto) > 182.0 /HPF (0.0-6.0) 01/12/22 16:51 U Epithel Cells (Auto) 1.0 /HPF (0-13.0) 01/12/22 16:51 Urine WBC Clumps 1+ /HPF 01/12/22 16:51 Hyaline Casts 21 /LPF 01/12/22 16:51 Urine Mucus Few /HPF 01/12/22 16:51 Urine Yeast (Budding) Few /HPF 01/12/22 16:51 Urine Creatinine 224.3 mg/dL (0.1-20.0) H 01/12/22 16:51 Protein/Creatinin Ratio 0.47 01/12/22 16:51 Urine Total Protein 105 mg/dL (5-11.8) H 01/12/22 16:51 Coronavirus (PCR) Negative (Negative) 01/11/22 15:45 Hepatitis A IgM Ab Non-reactive (NonReactive) 01/15/22 04:45 Hep Bs Antigen Non-reactive (Negative) 01/15/22 04:45 Hep B Core IgM Ab Non-reactive (NonReactive) 01/15/22 04:45 Hepatitis C Antibody Non-reactive (NonReactive) 01/15/22 04:45 Blood Type B POSITIVE 01/10/22 21:47 Antibody Screen Negative 01/10/22 21:47 Joyce/IV: Voiding Method Urinal Active Medications - Current Medications Current Medications: Generic Name Dose Route Start Last Admin Trade Name Freq PRN Reason Stop Dose Admin Acetaminophen 650 mg 01/10/22 23:49 Acetaminophen 325 Mg Tab PO Q6H PRN Pain MILD(1-3)/Fever >100.5/NÚÑEZ Amiodarone HCl 200 mg 01/15/22 22:00 01/18/22 09:01 Amiodarone 200 Mg Tab PO 200 mg BID SHAKEEL Administration Carvedilol 25 mg 01/18/22 11:00 01/18/22 11:09 Carvedilol 25 Mg Tab PO 25 mg BID SHAKEEL Administration Dextrose 50 ml 01/10/22 23:49 Dextrose 50% In Water (25gm) 50 Ml Syringe IV Q30MIN PRN Hypoglycemia Protocol Docusate Sodium 100 mg 01/17/22 22:00 01/18/22 09:01 Docusate Sodium 100 Mg Cap PO 100 mg BID SHAKEEL Administration Famotidine 10 mg 01/17/22 22:00 01/18/22 09:01 Famotidine 10 Mg Tab PO 10 mg BID SHAKEEL Administration Furosemide 40 mg 01/18/22 09:45 01/18/22 09:52 Furosemide 40 Mg/4 Ml Inj IV 01/18/22 13:45 40 mg ONCE@0945 SHAKEEL Administration Hydrophilic Ointment 1 applic 01/12/22 09:02 Lip Therapy Vaseline TP Q2HR PRN Dry Lips Insulin Human Lispro 0 unit 01/16/22 22:00 01/18/22 11:20 Insulin Lispro 100 Unit/Ml SUB-Q Not Given ACHS SHAKEEL Protocol Magnesium Hydroxide 30 ml 01/10/22 23:49 Magnesium Hydroxide (Mom) Oral Liqd Udc PO Q4H PRN Constipation Ondansetron HCl 4 mg 01/10/22 23:49 01/15/22 21:41 Ondansetron 4 Mg/2 Ml Inj IV 4 mg Q8H PRN Administration Nausea And Vomiting Potassium Chloride 40 meq 01/18/22 11:29 Potassium Chloride Er 20 Meq Tab PO 01/18/22 11:30 ONCE ONE Sodium Bicarbonate 1,300 mg 01/13/22 14:00 01/18/22 09:01 Sodium Bicarbonate 650 Mg Tab PO 1,300 mg TID SHAKEEL Administration Sodium Chloride 10 ml 01/11/22 10:00 01/18/22 09:00 Sodium Chloride 0.9% 10 Ml Flush Syringe IV 10 ml BID SHAKEEL Administration Sodium Chloride 10 ml 01/10/22 23:49 Sodium Chloride 0.9% 10 Ml Flush Syringe IV PRN PRN LINE FLUSH Thiamine HCl 100 mg 01/18/22 10:00 01/18/22 09:01 Thiamine 100 Mg Tab PO 100 mg QDAY SHAKEEL Administration Warfarin Sodium 2.5 mg 01/18/22 17:00 Warfarin 2.5 Mg Tab PO 01/19/22 16:59 DAILY@1700 NR Nutrition/Malnutrition Assess - Dietary Evaluation Nutrition/Malnutrition Findings: Nutrition Notes Start: 01/11/22 12: 57 Freq: Status: Active Protocol: Document 01/17/22 18:27 [facility] (Rec: 01/17/22 18:30 [facility] [id number]) Nutrition Notes Initial or Follow up Reassessment Current Diagnosis Acute Kidney Injury,Coronary Artery Disease,Diabetes, Hypertension,Respiratory Failure,Hyperlipidemia Other Pertinent Diagnosis s/p ICD Shock, HFrEF, Pulmonary Edema, [place] x2, NINFA, . .. Current Diet Renal Labs/Tests K 3.5 BUN 55 Cr 2.6 Pertinent Medications Thiamine, Coumadin Height 5 ft 9 in Weight 117.934 kg [place] Body Weight (kg) 72.72 BMI 38.4 Weight Status Obese Subjective/Other Information Pt extubated on 01/15. He is tolerating PO diet and reports good appetite. He has been taking coumadin for 8 months and is familiar with Vit K- rich foods; denies need for DNI education. Burn Absent Trauma Absent #1 Nutrition Diagnosis Inadequate oral intake As Evidenced by Signs and Symptoms pt on PO diet and reports good appetite Diagnosis Progress(for reassessment Resolved documentation) Is patient on ventilator? No Is Patient Ambulatory and/or Out of Bed Yes REE-([place]. or-ambulatory/OOB) [ 2593.136 [id number]] Kcal/Kg value to use for calculation 17 Approximate Energy Requirements Using 2005 kcal/Kg Calculation Used for Recommendations Kcal/kg Additional Notes Pro needs 0.8-1.2g/kg adjBW: 76-114g/day Fluid needs 1ml/kcal Nutrition Intervention Change Diet Order: Continue current diet order Goal #1 PO intake to meet at least 75% energy and pro needs Follow-Up By: 01/24/22 Additional Comments F/U: intakes, wt - Malnutrition Assessment Minimum of two criteria: Yes - Attestation Statement I have reviewed and agreed w/ Malnutrition eval & tx plan: Yes
[2022-01-18] MEDS ORDERED: POTASSIUM CHLORIDE ER 20 MEQ TAB PO SCH (12:00)
[2022-01-18] MEDS ORDERED: WARFARIN 2.5 MG TAB PO NR (17:00)
--- NOTE | 2022-01-18 17:12 | Progress Note ---
Assessment and Plan Acute Hypoxic Respiratory Failure s/p MVS Fulminant Pulmonary Edema/ Possible CAP Ventricular Tachycardia - Implantable Cardioverter-Defibrillator (ICD) discharge CAD (Coronary Artery Disease) Congestive Heart Failure with Reduce EF h/o HTN (Hypertension) Acute Kidney Injury(MARCIO) Hypokalemia-improved Possible CAP Type 2 Diabetes Mellitus Continue all care Transfer telemetry once bed is available -Titrate supplemental oxygen oxygen for SpO2 89-92% -CXR, ABG as clinically indicated -BIPAP qhs and prn -Continue to monitor renal function, hemodynamics and electrolyte profile -Avoid nephrotoxins, adjust all medications for GFR and CrCL -Replete electrolytes as clinically indicated -Accuchecks with glycemic control, target blood glucose 140-180 mg/dL. Avoid hypoglycemia -VTE prophylaxis continue Coumadin with goal INR of 2-3 -Stress ulcer prophylaxis-Famotidine -Mobility, frequent turning, off loading per facility protocol to prevent pressure ulcers -PT/OT, increase activity as tolerated -Maintain sleep wake cycle, avoid benzodiazepines. -Limit delirium -Supportive blood transfusion, keep HgB>7g/dL Needs pulmonary outpatient follow up post discharge- need sleep evaluation(patient states he has a CPAP machine that is over 10 years old) Can transfer telemetry CONDITION:FAIR PROGNOSIS: FAIR CODE STATUS; FULL CODE Subjective Date of service: 01/18/22 Principal diagnosis: Acute respiratory failure, acute on chronic HFrEF, MARCIO Interval history: This is a 56-year-old AA male with known past medical history of [place], aortic regurgitation, non-obstructive CAD, HFrEF, s/p AICD, diabetes, hyperlipidemia, and hypertension admitted for AICD discharge. Decompensated in the ED s/p emergent intubation now on ventilatory support, in fulminant pulmonary edema Seen and examined. Vitals, labs,medications, chart and imaging reviewed. Discussed with respiratory and nursing care staff. No adverse overnight events reported. Patient tolerated BIPAP overnight. Currently sitting out of bed in chair He denies any chest pain, no shortness of breath, no fevers or chills Waiting for a telemetry bed Objective Vital Signs - 12hr 01/18/22 01/18/22 01/18/22 06:01 07:00 07:18 Temperature 97.9 F Pulse Rate 79 73 Pulse Rate [ From Monitor] Respiratory 12 21 Rate Blood Pressure 138/81 159/84 O2 Sat by Pulse 92 94 Oximetry 01/18/22 01/18/22 01/18/22 07:43 08:00 09:00 Temperature Pulse Rate 77 87 Pulse Rate [ 87 From Monitor] Respiratory 18 22 Rate Blood Pressure 154/85 174/96 O2 Sat by Pulse 97 91 94 Oximetry 01/18/22 01/18/22 01/18/22 10:01 11:00 11:09 Temperature Pulse Rate 89 84 84 Pulse Rate [ From Monitor] Respiratory 14 18 Rate Blood Pressure 168/101 146/80 146/80 O2 Sat by Pulse 99 97 Oximetry 01/18/22 01/18/22 01/18/22 11:34 12:00 12:01 Temperature 98.1 F Pulse Rate 69 72 Pulse Rate [ 68 From Monitor] Respiratory 22 20 Rate Blood Pressure 123/69 O2 Sat by Pulse 96 86 Oximetry 01/18/22 01/18/22 01/18/22 13:00 14:00 15:00 Temperature Pulse Rate 72 67 77 Pulse Rate [ From Monitor] Respiratory 17 16 21 Rate Blood Pressure 123/60 114/71 124/79 O2 Sat by Pulse 92 93 94 Oximetry 01/18/22 01/18/22 16:00 17:00 Temperature Pulse Rate 68 78 Pulse Rate [ 70 From Monitor] Respiratory 15 16 Rate Blood Pressure 120/72 135/78 O2 Sat by Pulse 96 95 Oximetry Constitutional: no acute distress, alert Eyes: non-icteric ENT: oropharynx moist Neck: supple, no lymphadenopathy Effort: normal Ascultation: Bilateral: clear, diminished breath sounds, rhonchi Cardiovascular: irregular rhythm, other (S1,S2) Gastrointestinal: normoactive bowel sounds, soft, non-tender, non-distended Integumentary: other (Right femoral HD catheter, Bustamante catheter) Extremities: no cyanosis, no edema, pulses normal, edema Neurologic: normal mental status, non-focal exam, pupils equal and round, CN II- XII normal, motor strength normal and Psychiatric: mood appropriate, affect normal CBC and BMP: 01/17/22 05:20 01/19/22 03:59 ABG, PT/INR, D-dimer: ABG ABG pH 7.432 pH Units (7.350-7.450) 01/15/22 04:15 ABG pCO2 34.4 mm Hg 01/15/22 04:15 ABG pO2 101.6 mm Hg (80.0-90.0) H 01/15/22 04:15 ABG O2 Saturation 97.8 % (95.0-99.0) 01/15/22 04:15 PT/INR, D-dimer PT 18.2 Sec. (12.2-14.9) H 01/18/22 09:15 INR 1.34 (0.87-1.13) H 01/18/22 09:15 Abnormal lab findings: Abnormal Labs 01/10/22 01/10/22 01/10/22 21:47 21:47 21:47 WBC Hgb Hct MCH MCHC RDW 19.5 H Lymph % (Auto) 6.0 L Lymph # (Auto) 0.3 L Seg Neutrophils % 85.9 H Seg Neutrophils # PT 27.8 H INR 2.25 H APTT 38.8 H ABG pH ABG pO2 ABG HCO3 ABG O2 Saturation ABG Base Excess ABG Hemoglobin Oxyhemoglobin Sodium 147 H Potassium 3.4 L Chloride 109.0 H Carbon Dioxide BUN 24 H Creatinine Glucose 149 H POC Glucose Lactic Acid Calcium Phosphorus Magnesium Total Bilirubin 1.30 H Direct Bilirubin AST ALT Total Creatine Kinase Troponin T 0.063 H C-Reactive Protein Total Protein Albumin HDL Cholesterol 35 L Urine Blood Urine WBC (Auto) Urine Creatinine Urine Total Protein 01/10/22 01/11/22 01/11/22 21:47 00:12 00:15 WBC Hgb Hct MCH MCHC RDW Lymph % (Auto) Lymph # (Auto) Seg Neutrophils % Seg Neutrophils # PT INR APTT ABG pH ABG pO2 ABG HCO3 ABG O2 Saturation ABG Base Excess ABG Hemoglobin Oxyhemoglobin Sodium Potassium Chloride Carbon Dioxide BUN Creatinine Glucose POC Glucose 130 H Lactic Acid Calcium Phosphorus Magnesium 1.50 L Total Bilirubin Direct Bilirubin AST ALT Total Creatine Kinase Troponin T 0.058 H C-Reactive Protein Total Protein Albumin HDL Cholesterol Urine Blood Urine WBC (Auto) Urine Creatinine Urine Total Protein 01/11/22 01/11/22 01/11/22 04:20 04:20 09:09 WBC Hgb Hct MCH MCHC RDW Lymph % (Auto) Lymph # (Auto) Seg Neutrophils % Seg Neutrophils # PT INR APTT ABG pH ABG pO2 ABG HCO3 ABG O2 Saturation ABG Base Excess ABG Hemoglobin Oxyhemoglobin Sodium Potassium Chloride Carbon Dioxide 21 L BUN 23 H Creatinine 1.4 H Glucose 157 H POC Glucose Lactic Acid Calcium Phosphorus Magnesium Total Bilirubin Direct Bilirubin AST ALT Total Creatine Kinase Troponin T 0.075 H D C-Reactive Protein Total Protein Albumin HDL Cholesterol Urine Blood Large A Urine WBC (Auto) 22.0 H Urine Creatinine Urine Total Protein 01/11/22 01/11/22 01/11/22 09:19 09:55 14:15 WBC Hgb Hct MCH MCHC RDW Lymph % (Auto) Lymph # (Auto) Seg Neutrophils % Seg Neutrophils # PT INR APTT ABG pH 7.265 L ABG pO2 40.4 L ABG HCO3 ABG O2 Saturation 64.5 L ABG Base Excess -5.9 L -3.5 L ABG Hemoglobin Oxyhemoglobin 63.1 L 94.9 L Sodium Potassium Chloride Carbon Dioxide BUN Creatinine Glucose POC Glucose 236 H Lactic Acid Calcium Phosphorus Magnesium Total Bilirubin Direct Bilirubin AST ALT Total Creatine Kinase Troponin T C-Reactive Protein Total Protein Albumin HDL Cholesterol Urine Blood Urine WBC (Auto) Urine Creatinine Urine Total Protein 01/11/22 01/11/22 01/11/22 17:09 19:41 19:41 WBC Hgb Hct MCH MCHC RDW Lymph % (Auto) Lymph # (Auto) Seg Neutrophils % Seg Neutrophils # PT INR APTT ABG pH ABG pO2 ABG HCO3 ABG O2 Saturation ABG Base Excess ABG Hemoglobin Oxyhemoglobin Sodium Potassium Chloride Carbon Dioxide 18 L BUN 34 H Creatinine 2.2 H D Glucose 153 H POC Glucose 137 H Lactic Acid 3.30 H* Calcium Phosphorus Magnesium Total Bilirubin Direct Bilirubin AST ALT Total Creatine Kinase Troponin T C-Reactive Protein Total Protein Albumin HDL Cholesterol Urine Blood Urine WBC (Auto) Urine Creatinine Urine Total Protein 01/11/22 01/11/22 01/12/22 19:41 20:26 00:24 WBC Hgb Hct MCH MCHC RDW Lymph % (Auto) Lymph # (Auto) Seg Neutrophils % Seg Neutrophils # PT INR APTT ABG pH ABG pO2 218.2 H ABG HCO3 18.5 L ABG O2 Saturation 99.3 H ABG Base Excess -5.0 L ABG Hemoglobin Oxyhemoglobin Sodium Potassium Chloride Carbon Dioxide BUN Creatinine Glucose POC Glucose 155 H Lactic Acid Calcium Phosphorus 1.70 L Magnesium 4.80 H Total Bilirubin Direct Bilirubin AST ALT Total Creatine Kinase Troponin T C-Reactive Protein Total Protein Albumin HDL Cholesterol Urine Blood Urine WBC (Auto) Urine Creatinine Urine Total Protein 01/12/22 01/12/22 01/12/22 05:10 05:10 05:10 WBC Hgb Hct MCH MCHC RDW Lymph % (Auto) Lymph # (Auto) Seg Neutrophils % Seg Neutrophils # PT 36.1 H INR 3.09 H APTT ABG pH ABG pO2 ABG HCO3 ABG O2 Saturation ABG Base Excess ABG Hemoglobin Oxyhemoglobin Sodium Potassium Chloride Carbon Dioxide BUN Creatinine Glucose POC Glucose Lactic Acid 3.80 H* Calcium Phosphorus Magnesium Total Bilirubin Direct Bilirubin AST ALT Total Creatine Kinase Troponin T C-Reactive Protein 13.20 H Total Protein Albumin HDL Cholesterol Urine Blood Urine WBC (Auto) Urine Creatinine Urine Total Protein 01/12/22 01/12/22 01/12/22 05:20 08:57 09:30 WBC Hgb Hct MCH MCHC RDW Lymph % (Auto) Lymph # (Auto) Seg Neutrophils % Seg Neutrophils # PT INR APTT ABG pH ABG pO2 194.1 H ABG HCO3 ABG O2 Saturation 99.2 H ABG Base Excess ABG Hemoglobin 12.7 L Oxyhemoglobin Sodium Potassium Chloride Carbon Dioxide 21 L BUN 42 H Creatinine 3.3 H Glucose 178 H POC Glucose Lactic Acid 3.60 H* Calcium Phosphorus Magnesium Total Bilirubin Direct Bilirubin AST 73 H ALT 79 H Total Creatine Kinase Troponin T C-Reactive Protein Total Protein 6.2 L Albumin 3.3 L HDL Cholesterol Urine Blood Urine WBC (Auto) Urine Creatinine Urine Total Protein 01/12/22 01/12/22 01/12/22 09:38 14:30 15:23 WBC Hgb Hct MCH MCHC RDW 20.0 H Lymph % (Auto) Lymph # (Auto) Seg Neutrophils % Seg Neutrophils # PT INR APTT ABG pH ABG pO2 ABG HCO3 ABG O2 Saturation ABG Base Excess ABG Hemoglobin Oxyhemoglobin Sodium Potassium Chloride Carbon Dioxide BUN Creatinine Glucose POC Glucose Lactic Acid 4.00 H* Calcium Phosphorus Magnesium Total Bilirubin Direct Bilirubin AST ALT Total Creatine Kinase Troponin T C-Reactive Protein Total Protein Albumin HDL Cholesterol Urine Blood Urine WBC (Auto) Urine Creatinine 220.1 H Urine Total Protein 105 H 01/12/22 01/12/22 01/12/22 15:23 16:50 16:51 WBC Hgb Hct MCH MCHC RDW Lymph % (Auto) Lymph # (Auto) Seg Neutrophils % Seg Neutrophils # PT INR APTT ABG pH ABG pO2 ABG HCO3 ABG O2 Saturation ABG Base Excess ABG Hemoglobin Oxyhemoglobin Sodium Potassium Chloride Carbon Dioxide BUN Creatinine Glucose POC Glucose 207 H Lactic Acid Calcium Phosphorus Magnesium Total Bilirubin Direct Bilirubin AST ALT Total Creatine Kinase 202 H Troponin T C-Reactive Protein Total Protein Albumin HDL Cholesterol Urine Blood Large A Urine WBC (Auto) 85.0 H Urine Creatinine Urine Total Protein 01/12/22 01/13/22 01/13/22 16:51 03:09 04:04 WBC Hgb Hct MCH MCHC RDW Lymph % (Auto) Lymph # (Auto) Seg Neutrophils % Seg Neutrophils # PT 46.8 H INR 4.25 H APTT ABG pH ABG pO2 226.5 H ABG HCO3 17.0 L ABG O2 Saturation 99.3 H ABG Base Excess -7.1 L ABG Hemoglobin 13.8 L Oxyhemoglobin Sodium Potassium Chloride Carbon Dioxide BUN Creatinine Glucose POC Glucose Lactic Acid Calcium Phosphorus Magnesium Total Bilirubin Direct Bilirubin AST ALT Total Creatine Kinase Troponin T C-Reactive Protein Total Protein Albumin HDL Cholesterol Urine Blood Urine WBC (Auto) Urine Creatinine 224.3 H Urine Total Protein 105 H 01/13/22 01/13/22 01/13/22 06:31 08:28 08:47 WBC 12.1 H Hgb Hct MCH MCHC RDW 20.1 H Lymph % (Auto) 5.0 L Lymph # (Auto) 0.6 L Seg Neutrophils % 88.2 H Seg Neutrophils # 10.6 H PT INR APTT ABG pH ABG pO2 ABG HCO3 ABG O2 Saturation ABG Base Excess ABG Hemoglobin Oxyhemoglobin Sodium Potassium Chloride Carbon Dioxide 19 L BUN 62 H Creatinine 4.9 H Glucose 128 H POC Glucose 130 H Lactic Acid Calcium Phosphorus Magnesium Total Bilirubin Direct Bilirubin AST ALT Total Creatine Kinase Troponin T C-Reactive Protein Total Protein Albumin HDL Cholesterol Urine Blood Urine WBC (Auto) Urine Creatinine Urine Total Protein 01/13/22 01/14/22 01/14/22 11:41 04:00 04:00 WBC 11.5 H Hgb 11.7 L Hct MCH 27 L MCHC RDW 19.8 H Lymph % (Auto) Lymph # (Auto) Seg Neutrophils % Seg Neutrophils # PT INR APTT ABG pH ABG pO2 ABG HCO3 ABG O2 Saturation ABG Base Excess ABG Hemoglobin Oxyhemoglobin Sodium Potassium 3.5 L D Chloride Carbon Dioxide 21 L BUN 81 H Creatinine 5.2 H Glucose 133 H POC Glucose 142 H Lactic Acid Calcium 8.1 L Phosphorus Magnesium Total Bilirubin Direct Bilirubin AST ALT Total Creatine Kinase Troponin T C-Reactive Protein Total Protein Albumin HDL Cholesterol Urine Blood Urine WBC (Auto) Urine Creatinine Urine Total Protein 01/14/22 01/14/22 01/14/22 04:20 05:46 11:18 WBC Hgb Hct MCH MCHC RDW Lymph % (Auto) Lymph # (Auto) Seg Neutrophils % Seg Neutrophils # PT INR APTT ABG pH ABG pO2 45.7 L ABG HCO3 ABG O2 Saturation 77.6 L ABG Base Excess -2.2 L ABG Hemoglobin 12.2 L Oxyhemoglobin 75.8 L Sodium Potassium Chloride Carbon Dioxide BUN Creatinine Glucose POC Glucose 117 H 127 H Lactic Acid Calcium Phosphorus Magnesium Total Bilirubin Direct Bilirubin AST ALT Total Creatine Kinase Troponin T C-Reactive Protein Total Protein Albumin HDL Cholesterol Urine Blood Urine WBC (Auto) Urine Creatinine Urine Total Protein 01/14/22 01/14/22 01/15/22 13:10 Unknown 04:15 WBC Hgb Hct MCH MCHC RDW Lymph % (Auto) Lymph # (Auto) Seg Neutrophils % Seg Neutrophils # PT 49.5 H INR 4.55 H APTT ABG pH ABG pO2 92.1 H 101.6 H ABG HCO3 ABG O2 Saturation ABG Base Excess -2.1 L ABG Hemoglobin 11.6 L 11.2 L Oxyhemoglobin Sodium Potassium Chloride Carbon Dioxide BUN Creatinine Glucose POC Glucose Lactic Acid Calcium Phosphorus Magnesium Total Bilirubin Direct Bilirubin AST ALT Total Creatine Kinase Troponin T C-Reactive Protein Total Protein Albumin HDL Cholesterol Urine Blood Urine WBC (Auto) Urine Creatinine Urine Total Protein 01/15/22 01/15/22 01/15/22 04:45 04:45 04:45 WBC Hgb 11.4 L Hct 35.3 L MCH 27 L MCHC RDW 19.6 H Lymph % (Auto) Lymph # (Auto) Seg Neutrophils % Seg Neutrophils # PT 33.5 H INR 2.83 H APTT ABG pH ABG pO2 ABG HCO3 ABG O2 Saturation ABG Base Excess ABG Hemoglobin Oxyhemoglobin Sodium Potassium 3.0 L Chloride Carbon Dioxide BUN 80 H Creatinine 4.5 H Glucose 103 H POC Glucose Lactic Acid Calcium 8.0 L Phosphorus Magnesium Total Bilirubin Direct Bilirubin AST ALT Total Creatine Kinase Troponin T C-Reactive Protein Total Protein Albumin HDL Cholesterol Urine Blood Urine WBC (Auto) Urine Creatinine Urine Total Protein 01/16/22 01/16/22 01/16/22 05:10 05:10 05:10 WBC Hgb 10.8 L Hct 33.1 L MCH MCHC RDW 19.3 H Lymph % (Auto) Lymph # (Auto) Seg Neutrophils % Seg Neutrophils # PT 22.9 H INR 1.78 H APTT ABG pH ABG pO2 ABG HCO3 ABG O2 Saturation ABG Base Excess ABG Hemoglobin Oxyhemoglobin Sodium Potassium 3.2 L Chloride 107.6 H Carbon Dioxide BUN 68 H Creatinine 3.4 H Glucose POC Glucose Lactic Acid Calcium 8.0 L Phosphorus Magnesium Total Bilirubin Direct Bilirubin AST ALT Total Creatine Kinase Troponin T C-Reactive Protein Total Protein Albumin HDL Cholesterol Urine Blood Urine WBC (Auto) Urine Creatinine Urine Total Protein 01/16/22 01/17/22 01/17/22 13:18 04:00 05:20 WBC Hgb Hct MCH MCHC RDW Lymph % (Auto) Lymph # (Auto) Seg Neutrophils % Seg Neutrophils # PT 17.5 H INR 1.28 H APTT ABG pH ABG pO2 ABG HCO3 ABG O2 Saturation ABG Base Excess ABG Hemoglobin Oxyhemoglobin Sodium Potassium 3.5 L Chloride Carbon Dioxide BUN 55 H Creatinine 2.6 H Glucose POC Glucose 130 H Lactic Acid Calcium Phosphorus Magnesium Total Bilirubin Direct Bilirubin AST 106 H ALT 262 H Total Creatine Kinase Troponin T C-Reactive Protein Total Protein Albumin 3.4 L HDL Cholesterol Urine Blood Urine WBC (Auto) Urine Creatinine Urine Total Protein 01/17/22 01/17/22 01/17/22 05:20 11:58 16:55 WBC Hgb 11.4 L Hct MCH 27 L MCHC 31 L RDW 19.1 H Lymph % (Auto) Lymph # (Auto) Seg Neutrophils % Seg Neutrophils # PT INR APTT ABG pH ABG pO2 ABG HCO3 ABG O2 Saturation ABG Base Excess ABG Hemoglobin Oxyhemoglobin Sodium Potassium Chloride Carbon Dioxide BUN Creatinine Glucose POC Glucose 109 H 133 H Lactic Acid Calcium Phosphorus Magnesium Total Bilirubin Direct Bilirubin AST ALT Total Creatine Kinase Troponin T C-Reactive Protein Total Protein Albumin HDL Cholesterol Urine Blood Urine WBC (Auto) Urine Creatinine Urine Total Protein 01/18/22 01/18/22 01/18/22 09:15 09:15 09:15 WBC Hgb Hct MCH MCHC RDW Lymph % (Auto) Lymph # (Auto) Seg Neutrophils % Seg Neutrophils # PT 18.2 H INR 1.34 H APTT ABG pH ABG pO2 ABG HCO3 ABG O2 Saturation ABG Base Excess ABG Hemoglobin Oxyhemoglobin Sodium Potassium Chloride Carbon Dioxide BUN 47 H Creatinine 2.2 H Glucose 140 H POC Glucose Lactic Acid Calcium Phosphorus Magnesium Total Bilirubin Direct Bilirubin 0.4 H AST 60 H ALT 212 H Total Creatine Kinase Troponin T C-Reactive Protein Total Protein Albumin 3.3 L HDL Cholesterol Urine Blood Urine WBC (Auto) Urine Creatinine Urine Total Protein Allied health notes reviewed: nursing
[2022-01-19 04:49] LABS: INR 1.45 (0.87-1.13)
[2022-01-19 04:58] LABS: Calcium 8.7 mg/dL (8.4-10.2)
--- NOTE | 2022-01-19 08:36 | Progress Note ---
Assessment and Plan Assessment: * Nonoliguric acute kidney injury secondary to ATN * Acute on chronic HFrEF * Acute hypoxic respiratory failure, status post extubation * Pulmonary edema * Ventricular tachycardia s/p ICD discharge * Coronary artery disease * Hypokalemia * Transaminitis Plan: * Renal function is stable * Patient would benefit from continued IV diuresis - will give 40mg IV BID x 2 doses today * Resume po Lasix tomorrow * Replete KCl prn * Rate control per cardiology - currently on Amiodarone * Renally dose medications * Avoid nephrotoxins * Strict I/O ordered Subjective Date of service: 01/19/22 Principal diagnosis: Acute respiratory failure, acute on chronic HFrEF, MARCIO Interval history: Patient reports breathing has improved c/w yesterday. Not yet back to baseline. Reports good UOP following AM dose of Lasix. Objective - Vital Signs Vital signs: Vital Signs - 12hr 01/18/22 01/18/22 01/18/22 20:58 21:00 22:00 Temperature Pulse Rate 75 78 Pulse Rate [ From Monitor] Respiratory 12 20 Rate Respiratory Rate [Chest] Blood Pressure 138/70 136/98 O2 Sat by Pulse 95 95 96 Oximetry 01/18/22 01/18/22 01/18/22 22:01 23:00 23:45 Temperature Pulse Rate 72 81 71 Pulse Rate [ From Monitor] Respiratory 30 H Rate Respiratory Rate [Chest] Blood Pressure 136/98 136/82 O2 Sat by Pulse 87 Oximetry 01/19/22 01/19/22 01/19/22 00:00 00:41 01:00 Temperature 97.7 F Pulse Rate 71 76 74 Pulse Rate [ From Monitor] Respiratory 22 28 H 32 H Rate Respiratory Rate [Chest] Blood Pressure 138/96 138/96 148/83 O2 Sat by Pulse 98 96 97 Oximetry 01/19/22 01/19/22 01/19/22 02:00 02:11 03:00 Temperature Pulse Rate 65 63 Pulse Rate [ 64 From Monitor] Respiratory 35 H 15 Rate Respiratory 15 Rate [Chest] Blood Pressure 126/71 136/76 O2 Sat by Pulse 99 98 Oximetry 01/19/22 01/19/22 01/19/22 03:55 04:00 05:00 Temperature 98.4 F Pulse Rate 61 70 72 Pulse Rate [ From Monitor] Respiratory 19 24 Rate Respiratory Rate [Chest] Blood Pressure 130/85 140/81 O2 Sat by Pulse 97 99 Oximetry 01/19/22 01/19/22 06:00 07:00 Temperature Pulse Rate 71 80 Pulse Rate [ From Monitor] Respiratory 20 22 Rate Respiratory Rate [Chest] Blood Pressure 141/76 141/76 O2 Sat by Pulse 98 98 Oximetry - General Appearance General appearance: well-developed, well-nourished EENT: ATNC Respiratory: Present: Other (faint inspiratory crackles left > right) Cardiology: S1S2 Gastrointestinal: normal, no tenderness, no distended Musculoskeletal: other (trace edema) Psychiatric: cooperative - Lab 01/17/22 05:20 01/19/22 03:59 Most recent lab results ABG pH 7.432 pH Units (7.350-7.450) 01/15/22 04:15 ABG pCO2 34.4 mm Hg 01/15/22 04:15 ABG pO2 101.6 mm Hg (80.0-90.0) H 01/15/22 04:15 ABG HCO3 22.4 mmol/L (20.0-26.0) 01/15/22 04:15 ABG O2 Saturation 97.8 % (95.0-99.0) 01/15/22 04:15 Calcium 8.7 mg/dL (8.4-10.2) 01/19/22 03:59 Phosphorus 3.10 mg/dL (2.5-4.5) 01/17/22 04:00 Magnesium 2.20 mg/dL (1.7-2.3) 01/17/22 04:00 Urine Creatinine 224.3 mg/dL (0.1-20.0) H 01/12/22 16:51 Urine Total Protein 105 mg/dL (5-11.8) H 01/12/22 16:51 Medications & Allergies - Medications Allergies/Adverse Reactions: Allergies aspirin Adverse Reaction (Verified 01/10/22 21:41) Unknown patient is taking warfarin and has been advised to not take aspirin Home Medications: Home Medications Medication Instructions Recorded Confirmed Last Taken Type Isosorbide Mononitrate [Isosorbide 30 mg PO DAILY #30 tab.er.24h 08/20/13 01/14/22 01/15/17 08:00 Rx Mononitrate ER] carvediloL [Coreg] 25 mg PO BID #60 tablet 08/20/13 01/14/2209/22/19 Rx Furosemide [Lasix] 40 mg PO DAILY #30 tablet 09/17/13 01/14/22 01/15/17 08:00 Rx AtorvaSTATin [Lipitor] 80 mg PO QHS #30 tablet 01/19/17 01/14/22 Unknown Rx amLODIPine 10 mg PO DAILY 09/23/18 01/14/22 09/22/18 History cloNIDine-TTS PATCH [Catapres-Tts 1 patch TD Q7D 09/23/18 01/14/22 09/21/18 History 0.1MG Patch] hydrALAZINE [Apresoline TAB] 50 mg PO TID 09/23/18 01/14/22 09/22/18 History metFORMIN [Glucophage] 500 mg PO BID 09/23/18 01/14/22 Unknown History Potassium Chloride [K-Dur] 10 meq PO QDAY 03/28/19 01/14/22 Unknown History Warfarin [Coumadin] 2.5 mg PO QDAY 03/28/19 01/14/22 Unknown History ISOSORBIDE MONOnitrate [Imdur ER] 30 mg PO QDAY #30 tablet 03/29/19 01/14/22 Unknown Rx Warfarin [Coumadin] 7.5 mg PO DAILY@1700 tablet 03/30/19 01/14/22 Unknown Rx Active Medications: Generic Name Dose Route Start Last Admin Trade Name Freq PRN Reason Stop Dose Admin Acetaminophen 650 mg 01/10/22 23:49 Acetaminophen 325 Mg Tab PO Q6H PRN Pain MILD(1-3)/Fever >100.5/[id number] Amiodarone HCl 200 mg 01/15/22 22:00 01/18/22 22:01 Amiodarone 200 Mg Tab PO 200 mg BID SHAKEEL Administration Carvedilol 25 mg 01/18/22 11:00 01/18/22 22:01 Carvedilol 25 Mg Tab PO 25 mg BID SHAKEEL Administration Dextrose 50 ml 01/10/22 23:49 Dextrose 50% In Water (25gm) 50 Ml Syringe IV Q30MIN PRN Hypoglycemia Protocol Docusate Sodium 100 mg 01/17/22 22:00 01/18/22 22:01 Docusate Sodium 100 Mg Cap PO 100 mg BID SHAKEEL Administration Famotidine 10 mg 01/17/22 22:00 01/18/22 22:00 Famotidine 10 Mg Tab PO 10 mg BID SHAKEEL Administration Hydrophilic Ointment 1 applic 01/12/22 09:02 Lip Therapy Vaseline TP Q2HR PRN Dry Lips Insulin Human Lispro 0 unit 01/16/22 22:00 01/18/22 22:01 Insulin Lispro 100 Unit/Ml SUB-Q Not Given ACHS [facility] Protocol Magnesium Hydroxide 30 ml 01/10/22 23:49 Magnesium Hydroxide (Mom) Oral Liqd Udc PO Q4H PRN Constipation Ondansetron HCl 4 mg 01/10/22 23:49 01/15/22 21:41 Ondansetron 4 Mg/2 Ml Inj IV 4 mg Q8H PRN Administration Nausea And Vomiting Sodium Bicarbonate 1,300 mg 01/13/22 14:00 01/18/22 22:00 Sodium Bicarbonate 650 Mg Tab PO 1,300 mg TID SHAKEEL Administration Sodium Chloride 10 ml 01/11/22 10:00 01/18/22 22:01 Sodium Chloride 0.9% 10 Ml Flush Syringe IV 10 ml BID SHAKEEL Administration Sodium Chloride 10 ml 01/10/22 23:49 Sodium Chloride 0.9% 10 Ml Flush Syringe IV PRN PRN LINE FLUSH Thiamine HCl 100 mg 01/18/22 10:00 01/18/22 09:01 Thiamine 100 Mg Tab PO 100 mg QDAY SHAKEEL Administration Warfarin Sodium 2.5 mg 01/19/22 17:00 Warfarin 2.5 Mg Tab PO 01/20/22 16:59 DAILY@1700 NR
[2022-01-19] MEDS: SODIUM BICARBONATE 650 MG TAB PO SCH ×3 (08:48→21:14)
[2022-01-19] MEDS: INSULIN LISPRO 100 UNIT/ML SUB-Q SCH ×4 (08:48→22:36)
[2022-01-19] MEDS: FUROSEMIDE 40 MG/4 ML INJ IV SCH ×2 (10:13→18:15)
[2022-01-19] MEDS: DOCUSATE SODIUM 100 MG CAP PO SCH ×2 (10:13→22:36)
[2022-01-19] MEDS: carvediloL 25 MG TAB PO SCH ×2 (10:14→21:08)
[2022-01-19] MEDS: SPIRONOLACTONE 25 MG TAB PO SCH (10:14)
[2022-01-19] MEDS: THIAMINE 100 MG TAB PO SCH (10:14)
[2022-01-19] MEDS: FAMOTIDINE 10 MG TAB PO SCH ×2 (10:14→21:08)
[2022-01-19] MEDS: hydrALAZINE 25 MG TAB PO SCH ×2 (10:14→21:08)
[2022-01-19] MEDS: AMIODARONE 200 MG TAB PO SCH (10:14)
--- NOTE | 2022-01-19 10:17 | Progress Note ---
Assessment and Plan This is a 56-year-old -[place] Citizen male, who follows with Dr. KURTIS Ferrer, with past medical history of aortic regurgitation, non-obstructive CAD (via [facility] 2009) HFrEF, diabetes, hyperlipidemia, hypertension, s/p BI-V ICD ([facility] [facility]) Acute on chronic HFrEF Acute Pulmonary edema - copious pink, frothy sputum noted on intubation Acute Hypoxic Respiratory Failure-pulmonology following S/p ICD shock MARCIO-nephrology following Mildly elevated troponin- likely 2/2 to acutely decompensated HF/pulmonary edema/ICD shocks Hyperlipidemia Hypertension DM - mangement per primary team S/p Bi-V ICD ([facility] [facility]) H/o Stroke (OAC with Coumadin since 11/2020) H/o Prostate CA (2020) Home medications: Amlodipine 5 mg p.o. daily, atorvastatin 80 mg p.o. nightly, clonidine 0.1 mg transdermal patch q. 7 days, carvedilol 25 mg p.o. twice daily, hydralazine 50 mg p.o. 3 times daily, Imdur 30 mg p.o. every morning, Lasix 40 mg p.o. daily, metformin 500 mg p.o. twice daily, warfarin 5 mg tablet p.o. daily. Echocardiogram 03/2019: Mild to moderate concentric LV hypertrophy is observed. The LV size is moderate to severely dilated. RV global systolic function is mildly reduced. Mild aortic regurgitation. RV systolic pressure is calculated at 21 mmHg. Global LV systolic function is severely decreased. Estimated EF is 20 to 25%. Cath- 05/2010 at [facility]: Nonobstructive CAD Echo 01/11/2022-EF 10 to 15%. LV is severely dilated. Severe global hypokinesis of LV. Left ventricular diastolic function is indeterminate. Right ventricle is dilated. Right ventricle is hypokinetic. Left atrium is mildly dilated. Trace to mild aortic regurgitation. Mild mitral regurgitation. Mild tricuspid regurgitation. IVC is dilated. IVC collapses with less than 50% of inspiration Plan: Patient reports shortness of breath overnight. Per nephrology patient to have 2 doses of IV Lasix for continued diuresis Will defer volume management to Nephrology due to renal function Patient is slightly hypertensive will initiate Imdur 30 mg p.o. daily, hydralazine 25 mg p.o. twice daily and Aldactone 25 mg p.o. daily Will decrease to Amiodorone 200 mg p.o. daily Will defer volume management to nephrology No FABY,ARB, or ARNI at this time due to renal function Continue statin and Coreg 25mg PO BID. No asa due to allergy. Patient seen in conjunction with Dr. Benitez who agrees with the assessment and management of this patient. - Patient Problems (1) MARCIO (acute kidney injury) Current Visit: No Status: Acute (2) Non-ischemic cardiomyopathy Current Visit: No Status: Chronic (3) Acute pulmonary edema Current Visit: No Status: Acute (4) CAD (coronary artery disease) Current Visit: No Status: Chronic (5) Acute respiratory failure with hypoxemia Current Visit: No Status: Acute (6) Acute on chronic HFrEF (heart failure with reduced ejection fraction) Current Visit: No Status: Acute (7) Ischemic cardiomyopathy Current Visit: No Status: Chronic (8) Automatic implantable cardioverter-defibrillator in situ Current Visit: No Status: Chronic (9) HTN (hypertension) Current Visit: No Status: Chronic (10) Obesity Current Visit: No Status: Chronic (11) History of CVA (cerebrovascular accident) Current Visit: No Status: Chronic (12) Implantable cardioverter-defibrillator (ICD) discharge Current Visit: Yes Status: Acute (13) Ventricular tachycardia (paroxysmal) Current Visit: Yes Status: Acute Subjective Date of service: 01/19/22 Principal diagnosis: Acute respiratory failure, acute on chronic HFrEF, MARCIO Interval history: Patient resting in bed in no acute distress. Patient reports shortness of breath overnight Paced 70s with PVCs Objective Vital Signs Temp Pulse Pulse Resp Resp BP Pulse Ox 01/19/22 09:29 99 01/19/22 07:00 80 22 141/76 98 01/19/22 06:00 71 20 141/76 98 01/19/22 05:00 72 24 140/81 99 01/19/22 04:00 98.4 F 70 19 130/85 97 01/19/22 03:55 61 01/19/22 03:00 63 15 136/76 98 01/19/22 02:11 15 01/19/22 02:00 65 64 35 H 126/71 99 01/19/22 01:00 74 32 H 148/83 97 01/19/22 00:41 76 28 H 138/96 96 01/19/22 00:00 97.7 F 71 22 138/96 98 01/18/22 23:45 71 01/18/22 23:00 81 30 H 136/82 87 01/18/22 22:01 72 136/98 01/18/22 22:00 78 20 136/98 96 01/18/22 21:00 75 12 138/70 95 01/18/22 20:58 95 01/18/22 20:05 73 01/18/22 20:00 97.5 F L 78 13 129/66 95 01/18/22 19:00 63 17 124/62 96 01/18/22 18:13 73 21 134/73 91 01/18/22 18:00 73 21 134/73 93 01/18/22 17:19 98.6 F 01/18/22 17:00 78 16 135/78 95 01/18/22 16:00 68 70 15 120/72 96 01/18/22 15:00 77 21 124/79 94 01/18/22 14:00 67 16 114/71 93 01/18/22 13:00 72 17 123/60 92 01/18/22 12:01 72 20 123/69 86 01/18/22 12:00 69 68 22 96 01/18/22 11:34 98.1 F 01/18/22 11:09 84 146/80 01/18/22 11:00 84 18 146/80 97 - Physical Examination General: No Apparent Distress HEENT: Positive: PERRL Neck: Positive: trachea midline Cardiac: Positive: Reg Rate and Rhythm Lungs: Positive: Decreased Breath Sounds Neuro: Positive: Grossly Intact Abdomen: Positive: Soft, Active Bowel Sounds Skin: Negative: Rash Extremities: Present: +1 Edema (Bilateral lower extremity, improving) - Labs and Meds Coagulation 01/19/22 Range/Units 03:59 PT 19.4 H (12.2-14.9) Sec. INR 1.45 H (0.87-1.13) Comprehensive Metabolic Panel 01/19/22 Range/Units 03:59 Sodium 143 (137-145) mmol/L Potassium 4.2 (3.6-5.0) mmol/L Chloride 106.2 (98-107) mmol/L Carbon Dioxide 26 (22-30) mmol/L BUN 47 H (9-20) mg/dL Creatinine 2.1 H (0.8-1.3) mg/dL Glucose 106 H (75-100) mg/dL Calcium 8.7 (8.4-10.2) mg/dL - Imaging and Cardiology EKG: report reviewed, image reviewed Echo: report reviewed - Telemetry EKG Rhythm: Paced - EKG Sinus rhythms and dysrhythmias: sinus rhythm (RBBB) - Allied health notes Allied health notes reviewed: nursing
[2022-01-19] MEDS ORDERED: WARFARIN 2.5 MG TAB PO NR (17:00)
[2022-01-19] MEDS ORDERED: FUROSEMIDE 40 MG TAB PO SCH (18:00)
--- NOTE | 2022-01-19 18:52 | Progress Note ---
Subjective Date of service: 01/19/22 Principal diagnosis: Acute respiratory failure, acute on chronic HFrEF, MARCIO Objective Vital Signs - 12hr 01/19/22 01/19/22 01/19/22 07:00 08:00 09:00 Temperature 98.2 F Pulse Rate 80 77 89 Pulse Rate [ 72 From Monitor] Respiratory 22 21 16 Rate Blood Pressure 141/76 135/78 135/78 O2 Sat by Pulse 98 96 98 Oximetry 01/19/22 01/19/22 01/19/22 09:29 10:00 10:13 Temperature Pulse Rate 72 70 Pulse Rate [ From Monitor] Respiratory 9 L Rate Blood Pressure 138/74 138/74 O2 Sat by Pulse 99 100 Oximetry 01/19/22 01/19/22 01/19/22 10:14 11:00 11:30 Temperature Pulse Rate 74 70 Pulse Rate [ 70 From Monitor] Respiratory 21 20 Rate Blood Pressure 138/74 126/77 O2 Sat by Pulse 100 97 Oximetry 01/19/22 01/19/22 01/19/22 12:00 13:00 14:00 Temperature 97.8 F Pulse Rate 71 71 68 Pulse Rate [ From Monitor] Respiratory 22 14 16 Rate Blood Pressure 126/77 132/102 150/132 O2 Sat by Pulse 98 100 54 L Oximetry 01/19/22 01/19/22 01/19/22 15:00 16:00 17:00 Temperature 97.8 F Pulse Rate 69 63 84 Pulse Rate [ 73 From Monitor] Respiratory 24 18 21 Rate Blood Pressure 148/81 148/81 148/81 O2 Sat by Pulse 99 92 Oximetry 01/19/22 18:00 Temperature Pulse Rate 72 Pulse Rate [ From Monitor] Respiratory 18 Rate Blood Pressure 136/65 O2 Sat by Pulse 95 Oximetry Constitutional: no acute distress, alert Eyes: non-icteric ENT: oropharynx moist Neck: supple, no lymphadenopathy Effort: normal Ascultation: Bilateral: clear, diminished breath sounds, rhonchi Cardiovascular: irregular rhythm, other (S1,S2) Gastrointestinal: normoactive bowel sounds, soft, non-tender, non-distended Integumentary: other (Right femoral HD catheter, Bustamante catheter) Extremities: no cyanosis, no edema, pulses normal, edema Neurologic: normal mental status, non-focal exam, pupils equal and round, CN II- XII normal, motor strength normal and Psychiatric: mood appropriate, affect normal CBC and BMP: 01/17/22 05:20 01/19/22 03:59 ABG, PT/INR, D-dimer: ABG ABG pH 7.432 pH Units (7.350-7.450) 01/15/22 04:15 ABG pCO2 34.4 mm Hg 01/15/22 04:15 ABG pO2 101.6 mm Hg (80.0-90.0) H 01/15/22 04:15 ABG O2 Saturation 97.8 % (95.0-99.0) 01/15/22 04:15 PT/INR, D-dimer PT 19.4 Sec. (12.2-14.9) H 01/19/22 03:59 INR 1.45 (0.87-1.13) H 01/19/22 03:59 Abnormal lab findings: Abnormal Labs 01/10/22 01/10/22 01/10/22 21:47 21:47 21:47 WBC Hgb Hct MCH MCHC RDW 19.5 H Lymph % (Auto) 6.0 L Lymph # (Auto) 0.3 L Seg Neutrophils % 85.9 H Seg Neutrophils # PT 27.8 H INR 2.25 H APTT 38.8 H ABG pH ABG pO2 ABG HCO3 ABG O2 Saturation ABG Base Excess ABG Hemoglobin Oxyhemoglobin Sodium 147 H Potassium 3.4 L Chloride 109.0 H Carbon Dioxide BUN 24 H Creatinine Glucose 149 H POC Glucose Lactic Acid Calcium Phosphorus Magnesium Total Bilirubin 1.30 H Direct Bilirubin AST ALT Total Creatine Kinase Troponin T 0.063 H C-Reactive Protein Total Protein Albumin HDL Cholesterol 35 L Urine Blood Urine WBC (Auto) Urine Creatinine Urine Total Protein 01/10/22 01/11/22 01/11/22 21:47 00:12 00:15 WBC Hgb Hct MCH MCHC RDW Lymph % (Auto) Lymph # (Auto) Seg Neutrophils % Seg Neutrophils # PT INR APTT ABG pH ABG pO2 ABG HCO3 ABG O2 Saturation ABG Base Excess ABG Hemoglobin Oxyhemoglobin Sodium Potassium Chloride Carbon Dioxide BUN Creatinine Glucose POC Glucose 130 H Lactic Acid Calcium Phosphorus Magnesium 1.50 L Total Bilirubin Direct Bilirubin AST ALT Total Creatine Kinase Troponin T 0.058 H C-Reactive Protein Total Protein Albumin HDL Cholesterol Urine Blood Urine WBC (Auto) Urine Creatinine Urine Total Protein 01/11/22 01/11/22 01/11/22 04:20 04:20 09:09 WBC Hgb Hct MCH MCHC RDW Lymph % (Auto) Lymph # (Auto) Seg Neutrophils % Seg Neutrophils # PT INR APTT ABG pH ABG pO2 ABG HCO3 ABG O2 Saturation ABG Base Excess ABG Hemoglobin Oxyhemoglobin Sodium Potassium Chloride Carbon Dioxide 21 L BUN 23 H Creatinine 1.4 H Glucose 157 H POC Glucose Lactic Acid Calcium Phosphorus Magnesium Total Bilirubin Direct Bilirubin AST ALT Total Creatine Kinase Troponin T 0.075 H D C-Reactive Protein Total Protein Albumin HDL Cholesterol Urine Blood Large A Urine WBC (Auto) 22.0 H Urine Creatinine Urine Total Protein 01/11/22 01/11/22 01/11/22 09:19 09:55 14:15 WBC Hgb Hct MCH MCHC RDW Lymph % (Auto) Lymph # (Auto) Seg Neutrophils % Seg Neutrophils # PT INR APTT ABG pH 7.265 L ABG pO2 40.4 L ABG HCO3 ABG O2 Saturation 64.5 L ABG Base Excess -5.9 L -3.5 L ABG Hemoglobin Oxyhemoglobin 63.1 L 94.9 L Sodium Potassium Chloride Carbon Dioxide BUN Creatinine Glucose POC Glucose 236 H Lactic Acid Calcium Phosphorus Magnesium Total Bilirubin Direct Bilirubin AST ALT Total Creatine Kinase Troponin T C-Reactive Protein Total Protein Albumin HDL Cholesterol Urine Blood Urine WBC (Auto) Urine Creatinine Urine Total Protein 01/11/22 01/11/22 01/11/22 17:09 19:41 19:41 WBC Hgb Hct MCH MCHC RDW Lymph % (Auto) Lymph # (Auto) Seg Neutrophils % Seg Neutrophils # PT INR APTT ABG pH ABG pO2 ABG HCO3 ABG O2 Saturation ABG Base Excess ABG Hemoglobin Oxyhemoglobin Sodium Potassium Chloride Carbon Dioxide 18 L BUN 34 H Creatinine 2.2 H D Glucose 153 H POC Glucose 137 H Lactic Acid 3.30 H* Calcium Phosphorus Magnesium Total Bilirubin Direct Bilirubin AST ALT Total Creatine Kinase Troponin T C-Reactive Protein Total Protein Albumin HDL Cholesterol Urine Blood Urine WBC (Auto) Urine Creatinine Urine Total Protein 01/11/22 01/11/22 01/12/22 19:41 20:26 00:24 WBC Hgb Hct MCH MCHC RDW Lymph % (Auto) Lymph # (Auto) Seg Neutrophils % Seg Neutrophils # PT INR APTT ABG pH ABG pO2 218.2 H ABG HCO3 18.5 L ABG O2 Saturation 99.3 H ABG Base Excess -5.0 L ABG Hemoglobin Oxyhemoglobin Sodium Potassium Chloride Carbon Dioxide BUN Creatinine Glucose POC Glucose 155 H Lactic Acid Calcium Phosphorus 1.70 L Magnesium 4.80 H Total Bilirubin Direct Bilirubin AST ALT Total Creatine Kinase Troponin T C-Reactive Protein Total Protein Albumin HDL Cholesterol Urine Blood Urine WBC (Auto) Urine Creatinine Urine Total Protein 01/12/22 01/12/22 01/12/22 05:10 05:10 05:10 WBC Hgb Hct MCH MCHC RDW Lymph % (Auto) Lymph # (Auto) Seg Neutrophils % Seg Neutrophils # PT 36.1 H INR 3.09 H APTT ABG pH ABG pO2 ABG HCO3 ABG O2 Saturation ABG Base Excess ABG Hemoglobin Oxyhemoglobin Sodium Potassium Chloride Carbon Dioxide BUN Creatinine Glucose POC Glucose Lactic Acid 3.80 H* Calcium Phosphorus Magnesium Total Bilirubin Direct Bilirubin AST ALT Total Creatine Kinase Troponin T C-Reactive Protein 13.20 H Total Protein Albumin HDL Cholesterol Urine Blood Urine WBC (Auto) Urine Creatinine Urine Total Protein 01/12/22 01/12/22 01/12/22 05:20 08:57 09:30 WBC Hgb Hct MCH MCHC RDW Lymph % (Auto) Lymph # (Auto) Seg Neutrophils % Seg Neutrophils # PT INR APTT ABG pH ABG pO2 194.1 H ABG HCO3 ABG O2 Saturation 99.2 H ABG Base Excess ABG Hemoglobin 12.7 L Oxyhemoglobin Sodium Potassium Chloride Carbon Dioxide 21 L BUN 42 H Creatinine 3.3 H Glucose 178 H POC Glucose Lactic Acid 3.60 H* Calcium Phosphorus Magnesium Total Bilirubin Direct Bilirubin AST 73 H ALT 79 H Total Creatine Kinase Troponin T C-Reactive Protein Total Protein 6.2 L Albumin 3.3 L HDL Cholesterol Urine Blood Urine WBC (Auto) Urine Creatinine Urine Total Protein 01/12/22 01/12/22 01/12/22 09:38 14:30 15:23 WBC Hgb Hct MCH MCHC RDW 20.0 H Lymph % (Auto) Lymph # (Auto) Seg Neutrophils % Seg Neutrophils # PT INR APTT ABG pH ABG pO2 ABG HCO3 ABG O2 Saturation ABG Base Excess ABG Hemoglobin Oxyhemoglobin Sodium Potassium Chloride Carbon Dioxide BUN Creatinine Glucose POC Glucose Lactic Acid 4.00 H* Calcium Phosphorus Magnesium Total Bilirubin Direct Bilirubin AST ALT Total Creatine Kinase Troponin T C-Reactive Protein Total Protein Albumin HDL Cholesterol Urine Blood Urine WBC (Auto) Urine Creatinine 220.1 H Urine Total Protein 105 H 01/12/22 01/12/22 01/12/22 15:23 16:50 16:51 WBC Hgb Hct MCH MCHC RDW Lymph % (Auto) Lymph # (Auto) Seg Neutrophils % Seg Neutrophils # PT INR APTT ABG pH ABG pO2 ABG HCO3 ABG O2 Saturation ABG Base Excess ABG Hemoglobin Oxyhemoglobin Sodium Potassium Chloride Carbon Dioxide BUN Creatinine Glucose POC Glucose 207 H Lactic Acid Calcium Phosphorus Magnesium Total Bilirubin Direct Bilirubin AST ALT Total Creatine Kinase 202 H Troponin T C-Reactive Protein Total Protein Albumin HDL Cholesterol Urine Blood Large A Urine WBC (Auto) 85.0 H Urine Creatinine Urine Total Protein 01/12/22 01/13/22 01/13/22 16:51 03:09 04:04 WBC Hgb Hct MCH MCHC RDW Lymph % (Auto) Lymph # (Auto) Seg Neutrophils % Seg Neutrophils # PT 46.8 H INR 4.25 H APTT ABG pH ABG pO2 226.5 H ABG HCO3 17.0 L ABG O2 Saturation 99.3 H ABG Base Excess -7.1 L ABG Hemoglobin 13.8 L Oxyhemoglobin Sodium Potassium Chloride Carbon Dioxide BUN Creatinine Glucose POC Glucose Lactic Acid Calcium Phosphorus Magnesium Total Bilirubin Direct Bilirubin AST ALT Total Creatine Kinase Troponin T C-Reactive Protein Total Protein Albumin HDL Cholesterol Urine Blood Urine WBC (Auto) Urine Creatinine 224.3 H Urine Total Protein 105 H 01/13/22 01/13/22 01/13/22 06:31 08:28 08:47 WBC 12.1 H Hgb Hct MCH MCHC RDW 20.1 H Lymph % (Auto) 5.0 L Lymph # (Auto) 0.6 L Seg Neutrophils % 88.2 H Seg Neutrophils # 10.6 H PT INR APTT ABG pH ABG pO2 ABG HCO3 ABG O2 Saturation ABG Base Excess ABG Hemoglobin Oxyhemoglobin Sodium Potassium Chloride Carbon Dioxide 19 L BUN 62 H Creatinine 4.9 H Glucose 128 H POC Glucose 130 H Lactic Acid Calcium Phosphorus Magnesium Total Bilirubin Direct Bilirubin AST ALT Total Creatine Kinase Troponin T C-Reactive Protein Total Protein Albumin HDL Cholesterol Urine Blood Urine WBC (Auto) Urine Creatinine Urine Total Protein 01/13/22 01/14/22 01/14/22 11:41 04:00 04:00 WBC 11.5 H Hgb 11.7 L Hct MCH 27 L MCHC RDW 19.8 H Lymph % (Auto) Lymph # (Auto) Seg Neutrophils % Seg Neutrophils # PT INR APTT ABG pH ABG pO2 ABG HCO3 ABG O2 Saturation ABG Base Excess ABG Hemoglobin Oxyhemoglobin Sodium Potassium 3.5 L D Chloride Carbon Dioxide 21 L BUN 81 H Creatinine 5.2 H Glucose 133 H POC Glucose 142 H Lactic Acid Calcium 8.1 L Phosphorus Magnesium Total Bilirubin Direct Bilirubin AST ALT Total Creatine Kinase Troponin T C-Reactive Protein Total Protein Albumin HDL Cholesterol Urine Blood Urine WBC (Auto) Urine Creatinine Urine Total Protein 01/14/22 01/14/22 01/14/22 04:20 05:46 11:18 WBC Hgb Hct MCH MCHC RDW Lymph % (Auto) Lymph # (Auto) Seg Neutrophils % Seg Neutrophils # PT INR APTT ABG pH ABG pO2 45.7 L ABG HCO3 ABG O2 Saturation 77.6 L ABG Base Excess -2.2 L ABG Hemoglobin 12.2 L Oxyhemoglobin 75.8 L Sodium Potassium Chloride Carbon Dioxide BUN Creatinine Glucose POC Glucose 117 H 127 H Lactic Acid Calcium Phosphorus Magnesium Total Bilirubin Direct Bilirubin AST ALT Total Creatine Kinase Troponin T C-Reactive Protein Total Protein Albumin HDL Cholesterol Urine Blood Urine WBC (Auto) Urine Creatinine Urine Total Protein 01/14/22 01/14/22 01/15/22 13:10 Unknown 04:15 WBC Hgb Hct MCH MCHC RDW Lymph % (Auto) Lymph # (Auto) Seg Neutrophils % Seg Neutrophils # PT 49.5 H INR 4.55 H APTT ABG pH ABG pO2 92.1 H 101.6 H ABG HCO3 ABG O2 Saturation ABG Base Excess -2.1 L ABG Hemoglobin 11.6 L 11.2 L Oxyhemoglobin Sodium Potassium Chloride Carbon Dioxide BUN Creatinine Glucose POC Glucose Lactic Acid Calcium Phosphorus Magnesium Total Bilirubin Direct Bilirubin AST ALT Total Creatine Kinase Troponin T C-Reactive Protein Total Protein Albumin HDL Cholesterol Urine Blood Urine WBC (Auto) Urine Creatinine Urine Total Protein 01/15/22 01/15/22 01/15/22 04:45 04:45 04:45 WBC Hgb 11.4 L Hct 35.3 L MCH 27 L MCHC RDW 19.6 H Lymph % (Auto) Lymph # (Auto) Seg Neutrophils % Seg Neutrophils # PT 33.5 H INR 2.83 H APTT ABG pH ABG pO2 ABG HCO3 ABG O2 Saturation ABG Base Excess ABG Hemoglobin Oxyhemoglobin Sodium Potassium 3.0 L Chloride Carbon Dioxide BUN 80 H Creatinine 4.5 H Glucose 103 H POC Glucose Lactic Acid Calcium 8.0 L Phosphorus Magnesium Total Bilirubin Direct Bilirubin AST ALT Total Creatine Kinase Troponin T C-Reactive Protein Total Protein Albumin HDL Cholesterol Urine Blood Urine WBC (Auto) Urine Creatinine Urine Total Protein 01/16/22 01/16/22 01/16/22 05:10 05:10 05:10 WBC Hgb 10.8 L Hct 33.1 L MCH MCHC RDW 19.3 H Lymph % (Auto) Lymph # (Auto) Seg Neutrophils % Seg Neutrophils # PT 22.9 H INR 1.78 H APTT ABG pH ABG pO2 ABG HCO3 ABG O2 Saturation ABG Base Excess ABG Hemoglobin Oxyhemoglobin Sodium Potassium 3.2 L Chloride 107.6 H Carbon Dioxide BUN 68 H Creatinine 3.4 H Glucose POC Glucose Lactic Acid Calcium 8.0 L Phosphorus Magnesium Total Bilirubin Direct Bilirubin AST ALT Total Creatine Kinase Troponin T C-Reactive Protein Total Protein Albumin HDL Cholesterol Urine Blood Urine WBC (Auto) Urine Creatinine Urine Total Protein 01/16/22 01/17/22 01/17/22 13:18 04:00 05:20 WBC Hgb Hct MCH MCHC RDW Lymph % (Auto) Lymph # (Auto) Seg Neutrophils % Seg Neutrophils # PT 17.5 H INR 1.28 H APTT ABG pH ABG pO2 ABG HCO3 ABG O2 Saturation ABG Base Excess ABG Hemoglobin Oxyhemoglobin Sodium Potassium 3.5 L Chloride Carbon Dioxide BUN 55 H Creatinine 2.6 H Glucose POC Glucose 130 H Lactic Acid Calcium Phosphorus Magnesium Total Bilirubin Direct Bilirubin AST 106 H ALT 262 H Total Creatine Kinase Troponin T C-Reactive Protein Total Protein Albumin 3.4 L HDL Cholesterol Urine Blood Urine WBC (Auto) Urine Creatinine Urine Total Protein 01/17/22 01/17/22 01/17/22 05:20 11:58 16:55 WBC Hgb 11.4 L Hct MCH 27 L MCHC 31 L RDW 19.1 H Lymph % (Auto) Lymph # (Auto) Seg Neutrophils % Seg Neutrophils # PT INR APTT ABG pH ABG pO2 ABG HCO3 ABG O2 Saturation ABG Base Excess ABG Hemoglobin Oxyhemoglobin Sodium Potassium Chloride Carbon Dioxide BUN Creatinine Glucose POC Glucose 109 H 133 H Lactic Acid Calcium Phosphorus Magnesium Total Bilirubin Direct Bilirubin AST ALT Total Creatine Kinase Troponin T C-Reactive Protein Total Protein Albumin HDL Cholesterol Urine Blood Urine WBC (Auto) Urine Creatinine Urine Total Protein 01/18/22 01/18/22 01/18/22 09:15 09:15 09:15 WBC Hgb Hct MCH MCHC RDW Lymph % (Auto) Lymph # (Auto) Seg Neutrophils % Seg Neutrophils # PT 18.2 H INR 1.34 H APTT ABG pH ABG pO2 ABG HCO3 ABG O2 Saturation ABG Base Excess ABG Hemoglobin Oxyhemoglobin Sodium Potassium Chloride Carbon Dioxide BUN 47 H Creatinine 2.2 H Glucose 140 H POC Glucose Lactic Acid Calcium Phosphorus Magnesium Total Bilirubin Direct Bilirubin 0.4 H AST 60 H ALT 212 H Total Creatine Kinase Troponin T C-Reactive Protein Total Protein Albumin 3.3 L HDL Cholesterol Urine Blood Urine WBC (Auto) Urine Creatinine Urine Total Protein 01/19/22 01/19/22 01/19/22 03:59 03:59 11:19 WBC Hgb Hct MCH MCHC RDW Lymph % (Auto) Lymph # (Auto) Seg Neutrophils % Seg Neutrophils # PT 19.4 H INR 1.45 H APTT ABG pH ABG pO2 ABG HCO3 ABG O2 Saturation ABG Base Excess ABG Hemoglobin Oxyhemoglobin Sodium Potassium Chloride Carbon Dioxide BUN 47 H Creatinine 2.1 H Glucose 106 H POC Glucose 120 H Lactic Acid Calcium Phosphorus Magnesium Total Bilirubin Direct Bilirubin AST ALT Total Creatine Kinase Troponin T C-Reactive Protein Total Protein Albumin HDL Cholesterol Urine Blood Urine WBC (Auto) Urine Creatinine Urine Total Protein 01/19/22 18:18 WBC Hgb Hct MCH MCHC RDW Lymph % (Auto) Lymph # (Auto) Seg Neutrophils % Seg Neutrophils # PT INR APTT ABG pH ABG pO2 ABG HCO3 ABG O2 Saturation ABG Base Excess ABG Hemoglobin Oxyhemoglobin Sodium Potassium Chloride Carbon Dioxide BUN Creatinine Glucose POC Glucose 144 H Lactic Acid Calcium Phosphorus Magnesium Total Bilirubin Direct Bilirubin AST ALT Total Creatine Kinase Troponin T C-Reactive Protein Total Protein Albumin HDL Cholesterol Urine Blood Urine WBC (Auto) Urine Creatinine Urine Total Protein Allied health notes reviewed: nursing
--- NOTE | 2022-01-19 20:37 | Progress Note ---
Assessment and Plan Assessment and plan: This is a 56-year-old male with aortic regurgitation, CVA (2020), prostate cancer, nonobstructive CAD, heart failure with reduced EF, DM, HLD, HTN, s/p bivalve ICD placement admitted to the hospitalist service with acute on chronic heart failure, acute pulmonary edema, acute hypoxic respiratory failure, acute kidney injury Neuro: h/o CVA -Continue supportive care -Reorientation as needed -Maintain sleep-wake cycle -As needed analgesia -PT/OT Cardiac: Acute on chronic heart failure with reduced EF, s/p AICD shock, A. fib, mildly elevated troponin, h/o HTN, HLD, s/p bivalve ICD -Cardiology consulted, appreciate recommendations -Blood pressure monitoring per protocol -S/p vasopressor support with Levophed -Cardiology work-up: -Echocardiogram 03/2019: Mild to moderate concentric LV hypertrophy is observed. The LV size is moderate to severely dilated. RV global systolic function is mildly reduced. Mild aortic regurgitation. RV systolic pressure is calculated at 21 mmHg. Global LV systolic function is severely decreased. Estimated EF is 20 to 25%. -[facility]: Nonobstructive CAD -Echo 01/11/2022-EF 10 to 15%. LV is severely dilated. Severe global hypokinesis of LV. Left ventricular diastolic function is indeterminate. Right ventricle is dilated. Right ventricle is hypokinetic. Left atrium is mildly dilated. Trace to mild aortic regurgitation. Mild mitral regurgitation. Mild tricuspid regurgitation. IVC is dilated. IVC collapses with less than 50% of inspiration -Coumadin -S/p dobutamine -Imdur, hydralazine, Aldactone, Lipitor, Coreg Respiratory: Acute hypoxic respiratory failure, pulmonary edema -[facility] consulted, appreciate recommendations -Intubated on 01/11 and extubated on 01/15 -Pulmonary hygiene -SPO2 monitor per protocol GI: Transaminitis, obesity -24 hours -270 mL -PPI -Cardiac diet -Trend LFTs : Acute kidney injury -S/p Bustamante -Nephrology consulted, appreciate recommendations -Monitor intake and output -Lasix 40 mg 01/18, Lasix 40 mg 01/19 x 2 doses -Resume p.o. Lasix tomorrow -Renally dose medications -Avoid nephrotoxic medications -Renal ultrasound shows some pleural small left renal cyst, free cortical regularities in the left kidney could represent chronic kidney changes- nonspecific -Trend BMP ID: NAD -f/u blood culture -NGTD x5 day, UC NGTD x 48 hours -Monitor WBC and temperature curve Endo: h/o DM -Avoid hypoglycemia -SSI -Accu-Cheks ACHS Heme: NAD -Trend CBC -Transfuse hemoglobin less than 7 -SCDs to BLE while in bed The high probability of a clinically significant, sudden or life threatening deterioration of the [cardio] system(s) required my full and direct attention, intervention and personal management. The aggregate critical care time was [60] minutes. This time is in addition to time spent performing reported procedures but includes the following: [x] Data Review and interpretation [x] Patient assessment and monitoring of vital signs [x] Documentation [x] Medication orders and management Disposition Plan: transfer to floor Total Time Spent with Patient (Minutes): 60 History Interval history: This is a 56-year-old male with aortic regurgitation, CVA (2020), prostate cancer (2020), nonobstructive CAD, heart failure with reduced EF, DM, HLD, HTN, s/p bivalve ICD who presented to the emergency department on 01/10 via EMS for evaluation of chest discomfort which started around 6 PM on 01/10 and the patient stated he experienced the episode of dizziness followed by severe thump in his chest. EMS was concerned about a STEMI however ECG was transmitted to the on- call customer solutions teammate who indicated patient may need to be reassessed upon arrival to the emergency department. Upon arrival to the emergency department patient was in no acute distress, AICD was said to have fired causing the patient to have some chest discomfort and he subsequently went into V. tach and was placed on amiodarone and heparin drip. Work-up in the emergency department revealed hypokalemia at 3.4, elevated BUN/creatinine at 1.3/24, hypomagnesemia at 1.5 and slightly elevated troponin at 0.063. CXR showed no acute findings. 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 Patient was admitted to the hospitalist service with consults to cardiology, nephrology and [facility]. Hospital course to date: 01-10 admit 01/11: S/p emergent intubation by the ED physician due to increase WOB, tachypnea, and lethagy. [place] frothy sputum noted in ETT, fulminant pulmonary edema. Additional 40mg Iv lasix administered. Patient is Currently on high vent setting, 100% Fio2 and 16 of Peep. SPO2 remains labile, repeat ABG pending. [facility] on consult for vent management. ST with BBB noted on the monitor, on amiodarone gtt for VTach per Cardio, VSS, echo pending. Monitor electrolytes and replete as needed. 01/12: Stable on the vent this am. This am ABG and Cxr noted. Now on pressors for hypotension, remains on amiodarone gtt. Accelerated junctional rhythm noted on the monitor this am, Dobutamine gtt held. 2D Echo pending. With worsen renal function this am, now oliguric, only 200cc in last 24hrs. IV lasix held, Nephrology consulted. Patient remains coagulopathic, per records patient was on Coumadin at home. INR 3.09 this am, Hold AC for now. 01/13: Remains stable on the vent, down to 50% Fio2 and 8 of peep this am. Plan for SAT trial this am to assess mentation, plan for possible PSV trial in the am. Patient is off pressors this am, remains on Amio gtt. Remains in a junctional rhythm with frequent ectopy. Enteral nutrition initiated. Remains oliguric with worsening renal function, awaiting Nephrology final recs. 01/14: Following commands this am, continue vent wean for PSV trial later on today or tomorrow. Remains on Amio gtt, back on dobutamine gtt per Cardio, EF 10- to 15%. Patient remains afebrile and off pressors, VSS, cultures with NGTD. IV Abx D/C for now. With worsen renal function this am, but making urine this am. Awaiting Nephro recs. Continue to monitor PT/INR and for s/s of any active bleeding. Continue to hold AC for now. 01/15: Remains on Amio and dobutamine gtt, stable on th event, following commands. Plan for PSV trial this am for possible extubation. Good UOP in last 24hrs, mild improvement in renal function. Trialysis cath inserted 01-17 to PO amio; dc dobutamine; transfer orders 01-18 added coreg; floor transfer pending 01/19: No acute events overnight, awaiting transfer to floor. Hospitalist Physical - Constitutional Vitals: Temp Pulse Resp BP Pulse Ox 97.8 F 72 18 136/65 95 01/19/22 16:00 01/19/22 18:00 01/19/22 18:00 01/19/22 18:00 01/19/22 18:00 General appearance: Present: no acute distress, well-nourished, obese - EENT Eyes: Present: PERRL, EOM intact ENT: clear oral mucosa - Neck Neck: Present: supple, normal ROM - Respiratory Respiratory effort: normal Respiratory: bilateral: CTA, diminished - Cardiovascular Rhythm: regular Heart Sounds: Present: S1 & S2. Absent: systolic murmur, diastolic murmur - Extremities Extremities: no ischemia, pulses intact, pulses symmetrical, normal temperature, normal color, Full ROM Peripheral Pulses: within normal limits - Abdominal General gastrointestinal: soft, non-tender, non-distended, normal bowel sounds - Integumentary Integumentary: Present: warm, dry - Psychiatric Psychiatric: cooperative - Neurologic Neurologic: CNII-XII intact, no focal deficits, moves all extremities - Allied Health Allied health notes reviewed: nursing, RT, social work HEART Score - HEART Score EKG: Non-specific Age: 45-65 Risk factors: > 3 risk factors or hx of atherosclerotic disease Troponin: Troponin T 0.075 ng/mL (0.00-0.029) H D 01/11/22 04:20 Troponin: 1-3x normal limit - Critical Actions Critical Actions: 4-6 pts:12-16.6% risk of adverse cardiac event. Should be admitted Results - Labs CBC & Chem 7: 01/17/22 05:20 01/19/22 03:59 Labs: Laboratory Last Values WBC 7.3 K/mm3 (4.5-11.0) 01/17/22 05:20 RBC 4.24 M/mm3 (3.65-5.03) 01/17/22 05:20 Hgb 11.4 gm/dl (11.8-15.2) L 01/17/22 05:20 Hct 36.6 % (35.5-45.6) 01/17/22 05:20 MCV 86 fl (84-94) 01/17/22 05:20 MCH 27 pg (28-32) L 01/17/22 05:20 MCHC 31 % (32-34) L 01/17/22 05:20 RDW 19.1 % (13.2-15.2) H 01/17/22 05:20 Plt Count 191 K/mm3 (140-440) 01/17/22 05:20 Lymph % (Auto) 5.0 % (13.4-35.0) L 01/13/22 08:28 [place] % (Auto) 6.5 % (0.0-7.3) 01/13/22 08:28 Eos % (Auto) 0.1 % (0.0-4.3) 01/13/22 08:28 Baso % (Auto) 0.2 % (0.0-1.8) 01/13/22 08:28 Lymph # (Auto) 0.6 K/mm3 (1.2-5.4) L 01/13/22 08:28 [place] # (Auto) 0.8 K/mm3 (0.0-0.8) 01/13/22 08:28 Eos # (Auto) 0.0 K/mm3 (0.0-0.4) 01/13/22 08:28 Baso # (Auto) 0.0 K/mm3 (0.0-0.1) 01/13/22 08:28 Seg Neutrophils % 88.2 % (40.0-70.0) H 01/13/22 08:28 Seg Neutrophils # 10.6 K/mm3 (1.8-7.7) H 01/13/22 08:28 PT 19.4 Sec. (12.2-14.9) H 01/19/22 03:59 INR 1.45 (0.87-1.13) H 01/19/22 03:59 APTT 38.8 Sec. (24.2-36.6) H 01/10/22 21:47 ABG pH 7.432 pH Units (7.350-7.450) 01/15/22 04:15 ABG pCO2 34.4 mm Hg 01/15/22 04:15 ABG pO2 101.6 mm Hg (80.0-90.0) H 01/15/22 04:15 ABG HCO3 22.4 mmol/L (20.0-26.0) 01/15/22 04:15 ABG O2 Saturation 97.8 % (95.0-99.0) 01/15/22 04:15 ABG O2 Content 15.2 (0.0-44) 01/15/22 04:15 ABG Base Excess -1.4 mmol/L (-2.0-3.0) 01/15/22 04:15 ABG Hemoglobin 11.2 gm/dl (14.0-18.0) L 01/15/22 04:15 ABG Carboxyhemoglobin 1.5 % (0.0-5.0) 01/15/22 04:15 ABG Methemoglobin 0.6 % (0.0-1.5) 01/15/22 04:15 Oxyhemoglobin 95.8 % (95.0-99.0) 01/15/22 04:15 FiO2 35 % 01/15/22 04:15 Sodium 143 mmol/L (137-145) 01/19/22 03:59 Potassium 4.2 mmol/L (3.6-5.0) 01/19/22 03:59 Chloride 106.2 mmol/L (98-107) 01/19/22 03:59 Carbon Dioxide 26 mmol/L (22-30) 01/19/22 03:59 Anion Gap 15 mmol/L 01/19/22 03:59 BUN 47 mg/dL (9-20) H 01/19/22 03:59 Creatinine 2.1 mg/dL (0.8-1.3) H 01/19/22 03:59 Estimated GFR 40 ml/min 01/19/22 03:59 BUN/Creatinine Ratio 22 % 01/19/22 03:59 Glucose 106 mg/dL (75-100) H 01/19/22 03:59 POC Glucose 144 mg/dL (70-105) H 01/19/22 18:18 Lactic Acid 4.00 mmol/L (0.7-2.0) H* 01/12/22 15:23 Calcium 8.7 mg/dL (8.4-10.2) 01/19/22 03:59 Phosphorus 3.10 mg/dL (2.5-4.5) 01/17/22 04:00 Magnesium 2.20 mg/dL (1.7-2.3) 01/17/22 04:00 Total Bilirubin 1.00 mg/dL (0.1-1.2) 01/18/22 09:15 Direct Bilirubin 0.4 mg/dL (0-0.2) H 01/18/22 09:15 Indirect Bilirubin 0.6 mg/dL 01/18/22 09:15 AST 60 units/L (5-40) H 01/18/22 09:15 ALT 212 units/L (7-56) H 01/18/22 09:15 Alkaline Phosphatase 64 units/L (35-129) 01/18/22 09:15 Total Creatine Kinase 202 units/L (55-170) H 01/12/22 15:23 Troponin T 0.075 ng/mL (0.00-0.029) H D 01/11/22 04:20 C-Reactive Protein 13.20 mg/dL (0.00-1.30) H 01/12/22 05:10 Total Protein 6.7 g/dL (6.3-8.2) 01/18/22 09:15 Albumin 3.3 g/dL (3.9-5) L 01/18/22 09:15 Albumin/Globulin Ratio 1.0 % 01/18/22 09:15 Triglycerides 92 mg/dL (2-149) 01/15/22 04:45 Cholesterol 113 mg/dL (50-199) 01/10/22 21:47 LDL Cholesterol Direct 72 mg/dL (50-130) 01/10/22 21:47 HDL Cholesterol 35 mg/dL (40-59) L 01/10/22 21:47 Cholesterol/HDL Ratio 3.22 % 01/10/22 21:47 Procalcitonin 42.50 ng/mL (<0.15) 01/12/22 05:10 Urine Color Yellow (Yellow) 01/12/22 16:51 Urine Turbidity Cloudy (Clear) 01/12/22 16:51 Urine pH 5.0 (5.0-7.0) 01/12/22 16:51 Ur Specific [place] 1.030 (1.003-1.030) 01/12/22 16:51 Urine Protein 30 mg/dl mg/dL (Negative) 01/12/22 16:51 Urine Glucose (UA) Negative mg/dL (Negative) 01/12/22 16:51 Urine Ketones Negative mg/dL (Negative) 01/12/22 16:51 Urine Blood Large (Negative) A 01/12/22 16:51 Urine Nitrite Negative (Negative) 01/12/22 16:51 Ur Reducing Substances Not Reportable 01/12/22 16:51 Urine Bilirubin Negative (Negative) 01/12/22 16:51 Urine Ictotest Not Reportable 01/12/22 16:51 Urine Urobilinogen 0.0 mg/dL (<2.0) 01/12/22 16:51 Ur Leukocyte Esterase Trace (Negative) 01/12/22 16:51 Urine WBC (Auto) 85.0 /HPF (0.0-6.0) H 01/12/22 16:51 Urine RBC (Auto) > 182.0 /HPF (0.0-6.0) 01/12/22 16:51 U Epithel Cells (Auto) 1.0 /HPF (0-13.0) 01/12/22 16:51 Urine WBC Clumps 1+ /HPF 01/12/22 16:51 Hyaline Casts 21 /LPF 01/12/22 16:51 Urine Mucus Few /HPF 01/12/22 16:51 Urine Yeast (Budding) Few /HPF 01/12/22 16:51 Urine Creatinine 224.3 mg/dL (0.1-20.0) H 01/12/22 16:51 Protein/Creatinin Ratio 0.47 01/12/22 16:51 Urine Total Protein 105 mg/dL (5-11.8) H 01/12/22 16:51 Coronavirus (PCR) Negative (Negative) 01/11/22 15:45 Hepatitis A IgM Ab Non-reactive (NonReactive) 01/15/22 04:45 Hep Bs Antigen Non-reactive (Negative) 01/15/22 04:45 Hep B Core IgM Ab Non-reactive (NonReactive) 01/15/22 04:45 Hepatitis C Antibody Non-reactive (NonReactive) 01/15/22 04:45 Blood Type B POSITIVE 01/10/22 21:47 Antibody Screen Negative 01/10/22 21:47 Bustamante/IV: Voiding Method Urinal Active Medications - Current Medications Current Medications: Generic Name Dose Route Start Last Admin Trade Name Freq PRN Reason Stop Dose Admin Acetaminophen 650 mg 01/10/22 23:49 Acetaminophen 325 Mg Tab PO Q6H PRN Pain MILD(1-3)/Fever >100.5/NÚÑEZ Amiodarone HCl 200 mg 01/19/22 10:00 01/19/22 10:14 Amiodarone 200 Mg Tab PO 200 mg DAILY SHAKEEL Administration Carvedilol 25 mg 01/18/22 11:00 01/19/22 10:14 Carvedilol 25 Mg Tab PO 25 mg BID SHAKEEL Administration Dextrose 50 ml 01/10/22 23:49 Dextrose 50% In Water (25gm) 50 Ml Syringe IV Q30MIN PRN Hypoglycemia Protocol Docusate Sodium 100 mg 01/17/22 22:00 01/19/22 10:13 Docusate Sodium 100 Mg Cap PO 100 mg BID SHAKEEL Administration Famotidine 10 mg 01/17/22 22:00 01/19/22 10:14 Famotidine 10 Mg Tab PO 10 mg BID SHAKEEL Administration Hydralazine HCl 25 mg 01/19/22 10:00 01/19/22 10:14 Hydralazine 25 Mg Tab PO 25 mg BID SHAKEEL Administration Hydrophilic Ointment 1 applic 01/12/22 09:02 Lip Therapy Vaseline TP Q2HR PRN Dry Lips Insulin Human Lispro 0 unit 01/16/22 22:00 01/19/22 18:20 Insulin Lispro 100 Unit/Ml SUB-Q Not Given ACHS [facility] Protocol Isosorbide Mononitrate 30 mg 01/19/22 10:00 01/19/22 10:13 Isosorbide Mononitrate Er 30 Mg Tab PO 30 mg QDAY SHAKEEL Administration Magnesium Hydroxide 30 ml 01/10/22 23:49 Magnesium Hydroxide (Mom) Oral Liqd Udc PO Q4H PRN Constipation Ondansetron HCl 4 mg 01/10/22 23:49 01/15/22 21:41 Ondansetron 4 Mg/2 Ml Inj IV 4 mg Q8H PRN Administration Nausea And Vomiting Sodium Bicarbonate 1,300 mg 01/13/22 14:00 01/19/22 16:06 Sodium Bicarbonate 650 Mg Tab PO 1,300 mg TID SHAKEEL Administration Sodium Chloride 10 ml 01/11/22 10:00 01/19/22 10:14 Sodium Chloride 0.9% 10 Ml Flush Syringe IV 10 ml BID SHAKEEL Administration Sodium Chloride 10 ml 01/10/22 23:49 Sodium Chloride 0.9% 10 Ml Flush Syringe IV PRN PRN LINE FLUSH Spironolactone 25 mg 01/19/22 10:00 01/19/22 10:14 Spironolactone 25 Mg Tab PO 25 mg QDAY SHAKEEL Administration Thiamine HCl 100 mg 01/18/22 10:00 01/19/22 10:14 Thiamine 100 Mg Tab PO 100 mg QDAY SHAKEEL Administration Warfarin Sodium 2.5 mg 01/19/22 17:00 01/19/22 18:15 Warfarin 2.5 Mg Tab PO 01/20/22 16:59 2.5 mg DAILY@1700 NR Administration Nutrition/Malnutrition Assess - Dietary Evaluation Nutrition/Malnutrition Findings: Nutrition Notes Start: 01/11/22 12:57 Freq: Status: Active Protocol: Document 01/17/22 18:27 JULIO CCARLO (Rec: 01/17/22 18:30 WACARLO [id number]) Nutrition Notes Initial or Follow up Reassessment Current Diagnosis Acute Kidney Injury,Coronary Artery Disease,Diabetes, Hypertension,Respiratory Failure,Hyperlipidemia Other Pertinent Diagnosis s/p ICD Shock, HFrEF, Pulmonary Edema, MD x2, NINFA, . .. Current Diet Renal Labs/Tests K 3.5 BUN 55 Cr 2.6 Pertinent Medications Thiamine, Coumadin Height 5 ft 9 in Weight 117.934 kg [place] Body Weight (kg) 72.72 BMI 38.4 Weight Status Obese Subjective/Other Information Pt extubated on 01/15. He is tolerating PO diet and reports good appetite. He has been taking coumadin for 8 months and is familiar with Vit K- rich foods; denies need for DNI education. Burn Absent Trauma Absent #1 Nutrition Diagnosis Inadequate oral intake As Evidenced by Signs and Symptoms pt on PO diet and reports good appetite Diagnosis Progress(for reassessment Resolved documentation) Is patient on ventilator? No Is Patient Ambulatory and/or Out of Bed Yes REE-([facility]-ambulatory/OOB) [ 2593.136 [id number]] Kcal/Kg value to use for calculation 17 Approximate Energy Requirements Using 2005 kcal/Kg Calculation Used for Recommendations Kcal/kg Additional Notes Pro needs 0.8-1.2g/kg adjBW: 76-114g/day Fluid needs 1ml/kcal Nutrition Intervention Change Diet Order: Continue current diet order Goal #1 PO intake to meet at least 75% energy and pro needs Follow-Up By: 01/24/22 Additional Comments F/U: intakes, wt
[2022-01-20 05:38] LABS: INR 1.56 (0.87-1.13)
[2022-01-20 05:43] LABS: Calcium 8.7 mg/dL (8.4-10.2)
--- NOTE | 2022-01-20 09:00 | Progress Note ---
Assessment and Plan Assessment: * Nonoliguric acute kidney injury secondary to ATN * Acute on chronic HFrEF * Acute hypoxic respiratory failure, status post extubation * Pulmonary edema * Ventricular tachycardia s/p ICD discharge * Coronary artery disease * Hypokalemia * Transaminitis Plan: * Renal function is stable * Continue IV lasix - oxygenation improved with IV diuresis. Now down to 2L [place] oxygen * Replete KCl prn * Rate control per cardiology - currently on Amiodarone * Renally dose medications * Avoid nephrotoxins * Strict I/O ordered Subjective Date of service: 01/20/22 Principal diagnosis: Acute respiratory failure, acute on chronic HFrEF, MARCIO Interval history: Patient reports breathing improved. Objective - Vital Signs Vital signs: Vital Signs - 12hr 01/19/22 01/19/22 01/19/22 21:00 21:08 21:28 Temperature Pulse Rate 75 78 Pulse Rate [ Left] Respiratory 25 H Rate Blood Pressure 113/79 113/79 O2 Sat by Pulse 96 97 Oximetry 01/19/22 01/19/22 01/19/22 22:00 22:34 22:40 Temperature Pulse Rate 81 73 72 Pulse Rate [ Left] Respiratory 15 23 21 Rate Blood Pressure 113/79 105/78 105/78 O2 Sat by Pulse 99 98 Oximetry 01/19/22 01/19/22 01/19/22 22:50 23:00 23:50 Temperature Pulse Rate 70 73 72 Pulse Rate [ Left] Respiratory 22 23 Rate Blood Pressure 105/78 111/78 O2 Sat by Pulse 98 98 Oximetry 01/19/22 01/20/22 01/20/22 23:55 00:00 00:25 Temperature 98.5 F Pulse Rate 72 78 Pulse Rate [ Left] Respiratory 20 25 H Rate Blood Pressure 128/71 O2 Sat by Pulse 91 97 97 Oximetry 01/20/22 01/20/22 01/20/22 02:45 03:14 03:53 Temperature 97.5 F L Pulse Rate 101 H 67 Pulse Rate [ Left] Respiratory 20 16 Rate Blood Pressure 105/70 O2 Sat by Pulse 97 97 Oximetry 01/20/22 01/20/22 01/20/22 04:05 04:25 04:33 Temperature 97.5 F L Pulse Rate 76 69 Pulse Rate [ 76 Left] Respiratory 20 16 Rate Blood Pressure 105/70 O2 Sat by Pulse 98 97 Oximetry 01/20/22 08:42 Temperature 97.9 F Pulse Rate 69 Pulse Rate [ Left] Respiratory 18 Rate Blood Pressure 141/83 O2 Sat by Pulse 99 Oximetry - General Appearance General appearance: well-developed, well-nourished Respiratory: Present: Clear to Ascultation Cardiology: regular, S1S2 Gastrointestinal: normal, no tenderness, no distended Integumentary: warm and dry Neurologic: alert and oriented x3 Psychiatric: cooperative - Lab 01/17/22 05:20 01/20/22 04:42 Most recent lab results ABG pH 7.432 pH Units (7.350-7.450) 01/15/22 04:15 ABG pCO2 34.4 mm Hg 01/15/22 04:15 ABG pO2 101.6 mm Hg (80.0-90.0) H 01/15/22 04:15 ABG HCO3 22.4 mmol/L (20.0-26.0) 01/15/22 04:15 ABG O2 Saturation 97.8 % (95.0-99.0) 01/15/22 04:15 Calcium 8.7 mg/dL (8.4-10.2) 01/20/22 04:42 Phosphorus 3.10 mg/dL (2.5-4.5) 01/17/22 04:00 Magnesium 2.20 mg/dL (1.7-2.3) 01/17/22 04:00 Urine Creatinine 224.3 mg/dL (0.1-20.0) H 01/12/22 16:51 Urine Total Protein 105 mg/dL (5-11.8) H 01/12/22 16:51 Medications & Allergies - Medications Allergies/Adverse Reactions: Allergies aspirin Adverse Reaction (Verified 01/10/22 21:41) Unknown patient is taking warfarin and has been advised to not take aspirin Home Medications: Home Medications Medication Instructions Recorded Confirmed Last Taken Type Isosorbide Mononitrate [Isosorbide 30 mg PO DAILY #30 tab.er.24h 08/20/13 01/14/22 01/15/17 08:00 Rx Mononitrate ER] carvediloL [Coreg] 25 mg PO BID #60 tablet 08/20/13 01/14/22 09/22/18 Rx Furosemide [Lasix] 40 mg PO DAILY #30 tablet 09/17/13 01/14/22 01/15/17 08:00 Rx AtorvaSTATin [Lipitor] 80 mg PO QHS #30 tablet 01/19/17 01/14/22 Unknown Rx amLODIPine 10 mg PO DAILY 09/23/18 01/14/22 09/22/18 History cloNIDine-TTS PATCH [Catapres-Tts 1 patch TD Q7D 09/23/18 01/14/22 09/21/18 History 0.1MG Patch] hydrALAZINE [Apresoline TAB] 50 mg PO TID 09/23/18 01/14/22 09/22/18 History metFORMIN [Glucophage] 500 mg PO BID 09/23/18 01/14/22 Unknown History Potassium Chloride [K-Dur] 10 meq PO QDAY 03/28/19 01/14/22 Unknown History Warfarin [Coumadin] 2.5 mg PO QDAY 03/28/19 01/14/22 Unknown History ISOSORBIDE MONOnitrate [Imdur ER] 30 mg PO QDAY #30 tablet 03/29/19 01/14/22 Unknown Rx Warfarin [Coumadin] 7.5 mg PO DAILY@1700 tablet 03/30/19 01/14/22 Unknown Rx Active Medications: Generic Name Dose Route Start Last Admin Trade Name Freq PRN Reason Stop Dose Admin Acetaminophen 650 mg 01/10/22 23:49 Acetaminophen 325 Mg Tab PO Q6H PRN Pain MILD(1-3)/Fever >100.5/NÚÑEZ Amiodarone HCl 200 mg 01/19/22 10:00 01/19/22 10:14 Amiodarone 200 Mg Tab PO 200 mg DAILY SHAKEEL Administration Carvedilol 25 mg 01/18/22 11:00 01/19/22 21:08 Carvedilol 25 Mg Tab PO 25 mg BID SHAKEEL Administration Dextrose 50 ml 01/10/22 23:49 Dextrose 50% In Water (25gm) 50 Ml Syringe IV Q30MIN PRN Hypoglycemia Protocol Docusate Sodium 100 mg 01/17/22 22:00 01/19/22 22:36 Docusate Sodium 100 Mg Cap PO Not Given BID SHAKEEL Famotidine 10 mg 01/17/22 22:00 01/19/22 21:08 Famotidine 10 Mg Tab PO 10 mg BID SHAKEEL Administration Hydralazine HCl 25 mg 01/19/22 10:00 01/19/22 21:08 Hydralazine 25 Mg Tab PO 25 mg BID SHAKEEL Administration Hydrophilic Ointment 1 applic 01/12/22 09:02 Lip Therapy Vaseline TP Q2HR PRN Dry Lips Insulin Human Lispro 0 unit 01/16/22 22:00 01/19/22 22:36 Insulin Lispro 100 Unit/Ml SUB-Q Not Given ACHS [facility] Protocol Isosorbide Mononitrate 30 mg 01/19/22 10:00 01/19/22 10:13 Isosorbide Mononitrate Er 30 Mg Tab PO 30 mg QDAY [facility] Administration Magnesium Hydroxide 30 ml 01/10/22 23:49 Magnesium Hydroxide (Mom) Oral Liqd Udc PO Q4H PRN Constipation Ondansetron HCl 4 mg 01/10/22 23:49 01/15/22 21:41 Ondansetron 4 Mg/2 Ml Inj IV 4 mg Q8H PRN Administration Nausea And Vomiting Sodium Bicarbonate 1,300 mg 01/13/22 14:00 01/19/22 21:14 Sodium Bicarbonate 650 Mg Tab PO 1,300 mg TID SHAKEEL Administration Sodium Chloride 10 ml 01/11/22 10:00 01/19/22 22:36 Sodium Chloride 0.9% 10 Ml Flush Syringe IV 10 ml BID SHAKEEL Administration Sodium Chloride 10 ml 01/10/22 23:49 Sodium Chloride 0.9% 10 Ml Flush Syringe IV PRN PRN LINE FLUSH Spironolactone 25 mg 01/19/22 10:00 01/19/22 10:14 Spironolactone 25 Mg Tab PO 25 mg QDAY SHAKEEL Administration Thiamine HCl 100 mg 01/18/22 10:00 01/19/22 10:14 Thiamine 100 Mg Tab PO 100 mg QDAY [facility] Administration Warfarin Sodium 2.5 mg 01/20/22 17:00 Warfarin 2.5 Mg Tab PO 01/21/22 16:59 DAILY@1700 NR
--- NOTE | 2022-01-20 10:33 | Progress Note ---
Assessment and Plan This is a 56-year-old -[place] male, who follows with Dr. KURTIS Ferrer, with past medical history of aortic regurgitation, non-obstructive CAD (via [facility] 2009) HFrEF, diabetes, hyperlipidemia, hypertension, s/p BI-V ICD ([employer]) Acute on chronic HFrEF Acute Pulmonary edema - copious pink, frothy sputum noted on intubation Acute Hypoxic Respiratory Failure-pulmonology following S/p ICD shock MARCIO-nephrology following Mildly elevated troponin- likely 2/2 to acutely decompensated HF/pulmonary edema/ICD shocks Hyperlipidemia Hypertension DM - mangement per primary team S/p Bi-V ICD ([employer]) H/o Stroke (OAC with Coumadin since 11/2020) H/o Prostate CA (2020) Home medications: Amlodipine 5 mg p.o. daily, atorvastatin 80 mg p.o. nightly, clonidine 0.1 mg transdermal patch q. 7 days, carvedilol 25 mg p.o. twice daily, hydralazine 50 mg p.o. 3 times daily, Imdur 30 mg p.o. every morning, Lasix 40 mg p.o. daily, metformin 500 mg p.o. twice daily, warfarin 5 mg tablet p.o. daily. Echocardiogram 03/2019: Mild to moderate concentric LV hypertrophy is observed. The LV size is moderate to severely dilated. RV global systolic function is mildly reduced. Mild aortic regurgitation. RV systolic pressure is calculated at 21 mmHg. Global LV systolic function is severely decreased. Estimated EF is 20 to 25%. Cath- 05/2010 at [facility]: Nonobstructive CAD Echo 01/11/2022-EF 10 to 15%. LV is severely dilated. Severe global hypokinesis of LV. Left ventricular diastolic function is indeterminate. Right ventricle is dilated. Right ventricle is hypokinetic. Left atrium is mildly dilated. Trace to mild aortic regurgitation. Mild mitral regurgitation. Mild tricuspid regurgitation. IVC is dilated. IVC collapses with less than 50% of inspiration Plan: Patient reports improvement in respiratory status following Lasix administration yesterday. Agree with continuation of diuresis with Lasix 40 mg IV Will defer volume management to Nephrology due to renal function Continue Imdur 30 mg p.o. daily, hydralazine 25 mg p.o. twice daily and Aldactone 25 mg p.o. daily, Amiodorone 200 mg p.o. daily, statin, and Coreg 25mg PO BID. No FABY,ARB, or ARNI at this time due to renal function No asa due to allergy. Patient seen in conjunction with Dr. Benitez who agrees with the assessment and management of this patient. - Patient Problems (1) MARCIO (acute kidney injury) Current Visit: No Status: Acute (2) Non-ischemic cardiomyopathy Current Visit: No Status: Chronic (3) Acute pulmonary edema Current Visit: No Status: Acute (4) CAD (coronary artery disease) Current Visit: No Status: Chronic (5) Acute respiratory failure with hypoxemia Current Visit: No Status: Acute (6) Acute on chronic HFrEF (heart failure with reduced ejection fraction) Current Visit: No Status: Acute (7) Ischemic cardiomyopathy Current Visit: No Status: Chronic (8) Automatic implantable cardioverter-defibrillator in situ Current Visit: No Status: Chronic (9) HTN (hypertension) Current Visit: No Status: Chronic (10) Obesity Current Visit: No Status: Chronic (11) History of CVA (cerebrovascular accident) Current Visit: No Status: Chronic (12) Implantable cardioverter-defibrillator (ICD) discharge Current Visit: Yes Status: Acute (13) Ventricular tachycardia (paroxysmal) Current Visit: Yes Status: Acute Subjective Date of service: 01/20/22 Principal diagnosis: Acute respiratory failure, acute on chronic HFrEF, MARCIO Interval history: Patient resting in bed in no acute distress. Patient reports improvement in respiratory status Paced 70s with PVCs Objective Vital Signs Temp Pulse Pulse Pulse Resp BP Pulse Ox 01/20/22 09:08 98 01/20/22 08:42 97.9 F 69 18 141/83 99 01/20/22 04:33 97.5 F L 76 16 105/70 97 01/20/22 04:25 69 01/20/22 04:05 76 20 98 01/20/22 03:53 97.5 F L 67 16 105/70 97 01/20/22 03:14 101 H 01/20/22 02:45 20 97 01/20/22 00:25 78 25 H 97 01/20/22 00:00 97 01/19/22 23:55 98.5 F 72 20 128/71 91 01/19/22 23:50 72 01/19/22 23:00 73 23 111/78 98 01/19/22 22:50 70 22 105/78 98 01/19/22 22:40 72 21 105/78 98 01/19/22 22:34 73 23 105/78 99 01/19/22 22:00 81 15 113/79 01/19/22 21:28 97 01/19/22 21:08 78 113/79 01/19/22 21:00 75 25 H 113/79 96 01/19/22 20:00 97.9 F 71 21 136/84 97 01/19/22 19:00 71 19 136/65 94 01/19/22 18:00 72 18 136/65 95 01/19/22 17:00 84 21 148/81 92 01/19/22 16:00 97.8 F 63 73 18 148/81 99 01/19/22 15:00 69 24 148/81 01/19/22 14:00 68 16 150/132 54 L 01/19/22 13:00 71 14 132/102 100 01/19/22 12:00 97.8 F 71 22 126/77 98 01/19/22 11:30 70 20 97 01/19/22 11:00 70 21 126/77 100 - Physical Examination General: No Apparent Distress HEENT: Positive: PERRL Neck: Positive: trachea midline Cardiac: Positive: Reg Rate and Rhythm Lungs: Positive: Decreased Breath Sounds Neuro: Positive: Grossly Intact Abdomen: Positive: Soft, Active Bowel Sounds Skin: Negative: Rash Extremities: Present: +1 Edema (Bilateral lower extremity, improving) - Labs and Meds Coagulation 01/20/22 Range/Units 04:42 PT 20.6 H (12.2-14.9) Sec. INR 1.56 H (0.87-1.13) Comprehensive Metabolic Panel 01/20/22 Range/Units 04:42 Sodium 144 (137-145) mmol/L Potassium 4.0 (3.6-5.0) mmol/L Chloride 102.8 (98-107) mmol/L Carbon Dioxide 31 H (22-30) mmol/L BUN 48 H (9-20) mg/dL Creatinine 2.2 H (0.8-1.3) mg/dL Glucose 101 H (75-100) mg/dL Calcium 8.7 (8.4-10.2) mg/dL - Imaging and Cardiology EKG: report reviewed, image reviewed Echo: report reviewed - Telemetry EKG Rhythm: Paced - EKG Sinus rhythms and dysrhythmias: sinus rhythm (RBBB) - Allied health notes Allied health notes reviewed: nursing
[2022-01-20] MEDS: DOCUSATE SODIUM 100 MG CAP PO SCH ×2 (10:35→21:37)
[2022-01-20] MEDS: THIAMINE 100 MG TAB PO SCH (10:35)
[2022-01-20] MEDS: AMIODARONE 200 MG TAB PO SCH (10:35)
[2022-01-20] MEDS: FAMOTIDINE 10 MG TAB PO SCH ×2 (10:35→21:37)
[2022-01-20] MEDS: SODIUM BICARBONATE 650 MG TAB PO SCH ×3 (10:35→21:37)
[2022-01-20] MEDS: carvediloL 25 MG TAB PO SCH ×2 (10:35→21:37)
[2022-01-20] MEDS: hydrALAZINE 25 MG TAB PO SCH ×2 (10:35→22:48)
[2022-01-20] MEDS: INSULIN LISPRO 100 UNIT/ML SUB-Q SCH ×4 (10:36→22:49)
[2022-01-20] MEDS: SPIRONOLACTONE 25 MG TAB PO SCH (10:36)
[2022-01-20] MEDS: FUROSEMIDE 40 MG/4 ML INJ IV SCH ×2 (10:40→22:48)
--- NOTE | 2022-01-20 15:09 | Progress Note ---
Assessment and Plan Assessment and plan: History Interval history: This is a 56-year-old male with aortic regurgitation, CVA (2020), prostate cancer (2020), nonobstructive CAD, heart failure with reduced EF, DM, HLD, HTN, s/p bivalve ICD who presented to the emergency department on 01/10 via EMS for evaluation of chest discomfort which started around 6 PM on 01/10 and the patient stated he experienced the episode of dizziness followed by severe thump in his chest. EMS was concerned about a STEMI however ECG was transmitted to the on- call resource economist who indicated patient may need to be reassessed upon arrival to the emergency department. Upon arrival to the emergency department patient was in no acute distress, AICD was said to have fired causing the patient to have some chest discomfort and he subsequently went into V. tach and was placed on amiodarone and heparin drip. Work-up in the emergency department revealed hypokalemia at 3.4, elevated BUN/creatinine at 1.3/24, hypomagnesemia at 1.5 and slightly elevated troponin at 0.063. CXR showed no acute findings. performance manager of 01/11 patient was intubated due to hypoxia and tachycardia by the ED physician. Patient was admitted to the hospitalist service with consults to cardiology, nephrology and CCM. Hospital course to date: 01-10 admit 01/11: S/p emergent intubation by the ED physician due to increase WOB, tachypnea, and lethagy. [place] frothy sputum noted in ETT, fulminant pulmonary edema. Additional 40mg Iv lasix administered. Patient is Currently on high vent setting, 100% Fio2 and 16 of Peep. SPO2 remains labile, repeat ABG pending. CCM on consult for vent management. ST with BBB noted on the monitor, on amiodarone gtt for VTach per Cardio, VSS, echo pending. Monitor electrolytes and replete as needed. 01/12: Stable on the vent this am. This am ABG and Cxr noted. Now on pressors for hypotension, remains on amiodarone gtt. Accelerated junctional rhythm noted on the monitor this am, Dobutamine gtt held. 2D Echo pending. With worsen renal function this am, now oliguric, only 200cc in last 24hrs. IV lasix held, Nephrology consulted. Patient remains coagulopathic, per records patient was on Coumadin at home. INR 3.09 this am, Hold AC for now. 01/13: Remains stable on the vent, down to 50% Fio2 and 8 of peep this am. Plan for SAT trial this am to assess mentation, plan for possible PSV trial in the am. Patient is off pressors this am, remains on Amio gtt. Remains in a junctional rhythm with frequent ectopy. Enteral nutrition initiated. Remains oliguric with worsening renal function, awaiting Nephrology final recs. 01/14: Following commands this am, continue vent wean for PSV trial later on today or tomorrow. Remains on Amio gtt, back on dobutamine gtt per Cardio, EF 10- to 15%. Patient remains afebrile and off pressors, VSS, cultures with NGTD. IV Abx D/C for now. With worsen renal function this am, but making urine this am. Awaiting Nephro recs. Continue to monitor PT/INR and for s/s of any active bleeding. Continue to hold AC for now. 01/15: Remains on Amio and dobutamine gtt, stable on th event, following commands. Plan for PSV trial this am for possible extubation. Good UOP in last 24hrs, mild improvement in renal function. Trialysis cath inserted 01-17 to PO amio; dc dobutamine; transfer orders 01-18 added coreg; floor transfer pending 01/19: No acute events overnight, awaiting transfer to floor. 01/20: Currently on 2L NC. Was walked by care team. D/w CM re: set up for home O2. INR slowly uptrending, 1.56 today. No overlap therapy on meds, started on therapeutic lovenox 1mg/kg q24hr (renal dosing). Patient follows with primary where he get monthly INR checks. Will plan for discharge tomorrow with warfarin and lovenox bridge as well as detailed instructions for OP INR tracking. Assessment and plan: This is a 56-year-old male with aortic regurgitation, CVA (2020), prostate cancer, nonobstructive CAD, heart failure with reduced EF, DM, HLD, HTN, s/p bivalve ICD placement admitted to the hospitalist service with acute on chronic heart failure, acute pulmonary edema, acute hypoxic respiratory failure, acute kidney injury Neuro: h/o CVA -Continue supportive care -Reorientation as needed -Maintain sleep-wake cycle -As needed analgesia -PT/OT Cardiac: Acute on chronic heart failure with reduced EF, s/p AICD shock, A. fib, mildly elevated troponin, h/o HTN, HLD, s/p bivalve ICD -Cardiology consulted, appreciate recommendations -Blood pressure monitoring per protocol -S/p vasopressor support with Levophed -Cardiology work-up: -Echocardiogram 03/2019: Mild to moderate concentric LV hypertrophy is observed. The LV size is moderate to severely dilated. RV global systolic function is mildly reduced. Mild aortic regurgitation. RV systolic pressure is calculated at 21 mmHg. Global LV systolic function is severely decreased. Estimated EF is 20 to 25%. -Cath- 05/2010 at [facility]: Nonobstructive CAD -Echo 01/11/2022-EF 10 to 15%. LV is severely dilated. Severe global hypokinesis of LV. Left ventricular diastolic function is indeterminate. Right ventricle is dilated. Right ventricle is hypokinetic. Left atrium is mildly dilated. Trace to mild aortic regurgitation. Mild mitral regurgitation. Mild tricuspid regurgitation. IVC is dilated. IVC collapses with less than 50% of inspiration -Coumadin -S/p dobutamine -Imdur, hydralazine, Aldactone, Lipitor, Coreg Respiratory: Acute hypoxic respiratory failure, pulmonary edema -[facility] consulted, appreciate recommendations -Intubated on 01/11 and extubated on 01/15 -Pulmonary hygiene -SPO2 monitor per protocol GI: Transaminitis, obesity -24 hours -270 mL -PPI -Cardiac diet -Trend LFTs : Acute kidney injury -S/p Bustamante -Nephrology consulted, appreciate recommendations -Monitor intake and output -Lasix 40 mg 01/18, Lasix 40 mg 01/19 x 2 doses -Resume p.o. Lasix tomorrow -Renally dose medications -Avoid nephrotoxic medications -Renal ultrasound shows some pleural small left renal cyst, free cortical regularities in the left kidney could represent chronic kidney changes- nonspecific -Trend BMP ID: NAD -f/u blood culture -NGTD x5 day, UC NGTD x 48 hours -Monitor WBC and temperature curve Endo: h/o DM -Avoid hypoglycemia -SSI -Accu-Cheks ACHS Heme: NAD -Trend CBC -Transfuse hemoglobin less than 7 -SCDs to BLE while in bed #Advance care planning Disease education conducted, care plan discussed, diagnoses discussed, prognosis discussed, patient is full code, patient acknowledges understanding and agree with care plan, +30 minutes. History Interval history: Patient seen and evaluated bedside encounter. No acute complaints on my encounter today. He states that the swelling in his lower extremities has significantly decreased. He also states his breathing has improved. I discussed with the patient that he will likely need home O2 when he goes home. I also further discussed the need for him to go to his INR clinic/primary care doctor once discharged to get regular INR checks until goal INR 2-3 achieved. Hospitalist Physical - Physical exam Narrative exam: Physical Exam: VITAL SIGNS: Reviewed. GENERAL: The patient appears normally developed, Vital signs as documented. on 2l /min nc. HEAD: No signs of head trauma. EYES: Pupils are equal. Extraocular motions intact. EARS: Hearing grossly intact. MOUTH: Oropharynx is normal. NECK: No adenopathy, no JVD. CHEST: Chest with clear breath sounds bilaterally. No wheezes, rales, or rhonchi. CARDIAC: Regular rate and rhythm. S1 and S2, without murmurs, gallops, or rubs. VASCULAR: BL LE edema, interval improvement Peripheral pulses normal and equal in all extremities. ABDOMEN: Soft, non tender and non distended. No rebound or guarding, and no masses palpated. Bowel Sounds normal. MUSCULOSKELETAL: Good range of motion of all major joints. Extremities without clubbing, cyanosis or edema. NEUROLOGIC EXAM: Alert and oriented x 4. no focal sensory or strength deficits. PSYCHIATRIC: Mood normal. SKIN: detail exam as documented in skin assessment - Constitutional Vitals: Temp Pulse Resp BP Pulse Ox 97.9 F 71 18 141/83 93 01/20/22 08:42 01/20/22 12:00 01/20/22 08:42 01/20/22 08:42 01/20/22 14:10 General appearance: Present: no acute distress, well-nourished, obese HEART Score - HEART Score EKG: Non-specific Age: 45-65 Risk factors: > 3 risk factors or hx of atherosclerotic disease Troponin: Troponin T 0.075 ng/mL (0.00-0.029) H D 01/11/22 04:20 Troponin: 1-3x normal limit - Critical Actions Critical Actions: 4-6 pts:12-16.6% risk of adverse cardiac event. Should be admitted Results - Labs CBC & Chem 7: 01/17/22 05:20 01/20/22 04:42 Labs: Laboratory Last Values WBC 7.3 K/mm3 (4.5-11.0) 01/17/22 05:20 RBC 4.24 M/mm3 (3.65-5.03) 01/17/22 05:20 Hgb 11.4 gm/dl (11.8-15.2) L 01/17/22 05:20 Hct 36.6 % (35.5-45.6) 01/17/22 05:20 MCV 86 fl (84-94) 01/17/22 05:20 MCH 27 pg (28-32) L 01/17/22 05:20 MCHC 31 % (32-34) L 01/17/22 05:20 RDW 19.1 % (13.2-15.2) H 01/17/22 05:20 Plt Count 191 K/mm3 (140-440) 01/17/22 05:20 Lymph % (Auto) 5.0 % (13.4-35.0) L 01/13/22 08:28 [place] % (Auto) 6.5 % (0.0-7.3) 01/13/22 08:28 Eos % (Auto) 0.1 % (0.0-4.3) 01/13/22 08:28 Baso % (Auto) 0.2 % (0.0-1.8) 01/13/22 08:28 Lymph # (Auto) 0.6 K/mm3 (1.2-5.4) L 01/13/22 08:28 [place] # (Auto) 0.8 K/mm3 (0.0-0.8) 01/13/22 08:28 Eos # (Auto) 0.0 K/mm3 (0.0-0.4) 01/13/22 08:28 Baso # (Auto) 0.0 K/mm3 (0.0-0.1) 01/13/22 08:28 Seg Neutrophils % 88.2 % (40.0-70.0) H 01/13/22 08:28 Seg Neutrophils # 10.6 K/mm3 (1.8-7.7) H 01/13/22 08:28 PT 20.6 Sec. (12.2-14.9) H 01/20/22 04:42 INR 1.56 (0.87-1.13) H 01/20/22 04:42 APTT 38.8 Sec. (24.2-36.6) H 01/10/22 21:47 ABG pH 7.432 pH Units (7.350-7.450) 01/15/22 04:15 ABG pCO2 34.4 mm Hg 01/15/22 04:15 ABG pO2 101.6 mm Hg (80.0-90.0) H 01/15/22 04:15 ABG HCO3 22.4 mmol/L (20.0-26.0) 01/15/22 04:15 ABG O2 Saturation 97.8 % (95.0-99.0) 01/15/22 04:15 ABG O2 Content 15.2 (0.0-44) 01/15/22 04:15 ABG Base Excess -1.4 mmol/L (-2.0-3.0) 01/15/22 04:15 ABG Hemoglobin 11.2 gm/dl (14.0-18.0) L 01/15/22 04:15 ABG Carboxyhemoglobin 1.5 % (0.0-5.0) 01/15/22 04:15 ABG Methemoglobin 0.6 % (0.0-1.5) 01/15/22 04:15 Oxyhemoglobin 95.8 % (95.0-99.0) 01/15/22 04:15 FiO2 35 % 01/15/22 04:15 Sodium 144 mmol/L (137-145) 01/20/22 04:42 Potassium 4.0 mmol/L (3.6-5.0) 01/20/22 04:42 Chloride 102.8 mmol/L (98-107) 01/20/22 04:42 Carbon Dioxide 31 mmol/L (22-30) H 01/20/22 04:42 Anion Gap 14 mmol/L 01/20/22 04:42 BUN 48 mg/dL (9-20) H 01/20/22 04:42 Creatinine 2.2 mg/dL (0.8-1.3) H 01/20/22 04:42 Estimated GFR 38 ml/min 01/20/22 04:42 BUN/Creatinine Ratio 22 % 01/20/22 04:42 Glucose 101 mg/dL (75-100) H 01/20/22 04:42 POC Glucose 116 mg/dL (70-105) H 01/20/22 12:01 Lactic Acid 4.00 mmol/L (0.7-2.0) H* 01/12/22 15:23 Calcium 8.7 mg/dL (8.4-10.2) 01/20/22 04:42 Phosphorus 3.10 mg/dL (2.5-4.5) 01/17/22 04:00 Magnesium 2.20 mg/dL (1.7-2.3) 01/17/22 04:00 Total Bilirubin 1.00 mg/dL (0.1-1.2) 01/18/22 09:15 Direct Bilirubin 0.4 mg/dL (0-0.2) H 01/18/22 09:15 Indirect Bilirubin 0.6 mg/dL 01/18/22 09:15 AST 60 units/L (5-40) H 01/18/22 09:15 ALT 212 units/L (7-56) H 01/18/22 09:15 Alkaline Phosphatase 64 units/L (35-129) 01/18/22 09:15 Total Creatine Kinase 202 units/L (55-170) H 01/12/22 15:23 Troponin T 0.075 ng/mL (0.00-0.029) H D 01/11/22 04:20 C-Reactive Protein 13.20 mg/dL (0.00-1.30) H 01/12/22 05:10 Total Protein 6.7 g/dL (6.3-8.2) 01/18/22 09:15 Albumin 3.3 g/dL (3.9-5) L 01/18/22 09:15 Albumin/Globulin Ratio 1.0 % 01/18/22 09:15 Triglycerides 92 mg/dL (2-149) 01/15/22 04:45 Cholesterol 113 mg/dL (50-199) 01/10/22 21:47 LDL Cholesterol Direct 72 mg/dL (50-130) 01/10/22 21:47 HDL Cholesterol 35 mg/dL (40-59) L 01/10/22 21:47 Cholesterol/HDL Ratio 3.22 % 01/10/22 21:47 Procalcitonin 42.50 ng/mL (<0.15) 01/12/22 05:10 Urine Color Yellow (Yellow) 01/12/22 16:51 Urine Turbidity Cloudy (Clear) 01/12/22 16:51 Urine pH 5.0 (5.0-7.0) 01/12/22 16:51 Ur Specific [place] 1.030 (1.003-1.030) 01/12/22 16:51 Urine Protein 30 mg/dl mg/dL (Negative) 01/12/22 16:51 Urine Glucose (UA) Negative mg/dL (Negative) 01/12/22 16:51 Urine Ketones Negative mg/dL (Negative) 01/12/22 16:51 Urine Blood Large (Negative) A 01/12/22 16:51 Urine Nitrite Negative (Negative) 01/12/22 16:51 Ur Reducing Substances Not Reportable 01/12/22 16:51 Urine Bilirubin Negative (Negative) 01/12/22 16:51 Urine Ictotest Not Reportable 01/12/22 16:51 Urine Urobilinogen 0.0 mg/dL (<2.0) 01/12/22 16:51 Ur Leukocyte Esterase Trace (Negative) 01/12/22 16:51 Urine WBC (Auto) 85.0 /HPF (0.0-6.0) H 01/12/22 16:51 Urine RBC (Auto) > 182.0 /HPF (0.0-6.0) 01/12/22 16:51 U Epithel Cells (Auto) 1.0 /HPF (0-13.0) 01/12/22 16:51 Urine WBC Clumps 1+ /HPF 01/12/22 16:51 Hyaline Casts 21 /LPF 01/12/22 16:51 Urine Mucus Few /HPF 01/12/22 16:51 Urine Yeast (Budding) Few /HPF 01/12/22 16:51 Urine Creatinine 224.3 mg/dL (0.1-20.0) H 01/12/22 16:51 Protein/Creatinin Ratio 0.47 01/12/22 16:51 Urine Total Protein 105 mg/dL (5-11.8) H 01/12/22 16:51 Coronavirus (PCR) Negative (Negative) 01/11/22 15:45 Hepatitis A IgM Ab Non-reactive (NonReactive) 01/15/22 04:45 Hep Bs Antigen Non-reactive (Negative) 01/15/22 04:45 Hep B Core IgM Ab Non-reactive (NonReactive) 01/15/22 04:45 Hepatitis C Antibody Non-reactive (NonReactive) 01/15/22 04:45 Blood Type B POSITIVE 01/10/22 21:47 Antibody Screen Negative 01/10/22 21:47 Bustamante/IV: Voiding Method Urinal Active Medications - Current Medications Current Medications: Generic Name Dose Route Start Last Admin Trade Name Freq PRN Reason Stop Dose Admin Acetaminophen 650 mg 01/10/22 23:49 Acetaminophen 325 Mg Tab PO Q6H PRN Pain MILD(1-3)/Fever >100.5/NÚÑEZ Amiodarone HCl 200 mg 01/19/22 10:00 01/20/22 10:35 Amiodarone 200 Mg Tab PO 200 mg DAILY SHAKEEL Administration Carvedilol 25 mg 01/18/22 11:00 01/20/22 10:35 Carvedilol 25 Mg Tab PO 25 mg BID SHAKEEL Administration Dextrose 50 ml 01/10/22 23:49 Dextrose 50% In Water (25gm) 50 Ml Syringe IV Q30MIN PRN Hypoglycemia Protocol Docusate Sodium 100 mg 01/17/22 22:00 01/20/22 10:35 Docusate Sodium 100 Mg Cap PO 100 mg BID SHAKEEL Administration Famotidine 10 mg 01/17/22 22:00 01/20/22 10:35 Famotidine 10 Mg Tab PO 10 mg BID SHAKEEL Administration Furosemide 40 mg 01/20/22 10:00 01/20/22 10:40 Furosemide 40 Mg/4 Ml Inj IV 40 mg Q12HR SHAKEEL Administration Hydralazine HCl 25 mg 01/19/22 10:00 01/20/22 10:35 Hydralazine 25 Mg Tab PO 25 mg BID SHAKEEL Administration Hydrophilic Ointment 1 applic 01/12/22 09:02 Lip Therapy Vaseline TP Q2HR PRN Dry Lips Insulin Human Lispro 0 unit 01/16/22 22:00 01/20/22 12:08 Insulin Lispro 100 Unit/Ml SUB-Q Not Given ACHS SHAKEEL Protocol Isosorbide Mononitrate 30 mg 01/19/22 10:00 01/20/22 10:35 Isosorbide Mononitrate Er 30 Mg Tab PO 30 mg QDAY SHAKEEL Administration Magnesium Hydroxide 30 ml 01/10/22 23:49 Magnesium Hydroxide (Mom) Oral Liqd Udc PO Q4H PRN Constipation Ondansetron HCl 4 mg 01/10/22 23:49 01/15/22 21:41 Ondansetron 4 Mg/2 Ml Inj IV 4 mg Q8H PRN Administration Nausea And Vomiting Sodium Bicarbonate 1,300 mg 01/13/22 14:00 01/20/22 13:46 Sodium Bicarbonate 650 Mg Tab PO 1,300 mg TID SHAKEEL Administration Sodium Chloride 10 ml 01/11/22 10:00 01/20/22 10:40 Sodium Chloride 0.9% 10 Ml Flush Syringe IV 10 ml BID SHAKEEL Administration Sodium Chloride 10 ml 01/10/22 23:49 Sodium Chloride 0.9% 10 Ml Flush Syringe IV PRN PRN LINE FLUSH Spironolactone 25 mg 01/19/22 10:00 01/20/22 10:36 Spironolactone 25 Mg Tab PO 25 mg QDAY SHAKEEL Administration Thiamine HCl 100 mg 01/18/22 10:00 01/20/22 10:35 Thiamine 100 Mg Tab PO 100 mg QDAY SHAKEEL Administration Warfarin Sodium 2.5 mg 01/20/22 17:00 Warfarin 2.5 Mg Tab PO 01/21/22 16:59 DAILY@1700 NR Nutrition/Malnutrition Assess - Dietary Evaluation Nutrition/Malnutrition Findings: Nutrition Notes Start: 01/11/22 12:57 Freq: Status: Active Protocol: Document 01/17/22 18:27 AIMEE (Rec: 01/17/22 18:30 AIMEE [email or web address]) Nutrition Notes Initial or Follow up Reassessment Current Diagnosis Acute Kidney Injury,Coronary Artery Disease,Diabetes, Hypertension,Respiratory Failure,Hyperlipidemia Other Pertinent Diagnosis s/p ICD Shock, HFrEF, Pulmonary Edema, HI x2, NINFA, . .. Current Diet Renal Labs/Tests K 3.5 BUN 55 Cr 2.6 Pertinent Medications Thiamine, Coumadin Height 5 ft 9 in Weight 117.934 kg [place] Body Weight (kg) 72.72 BMI 38.4 Weight Status Obese Subjective/Other Information Pt extubated on 01/15. He is tolerating PO diet and reports good appetite. He has been taking coumadin for 8 months and is familiar with Vit K- rich foods; denies need for DNI education. Burn Absent Trauma Absent #1 Nutrition Diagnosis Inadequate oral intake As Evidenced by Signs and Symptoms pt on PO diet and reports good appetite Diagnosis Progress(for reassessment Resolved documentation) Is patient on ventilator? No Is Patient Ambulatory and/or Out of Bed Yes REE-(Banner-St. Jeor-ambulatory/OOB) [ 2593.136 [id number]] Kcal/Kg value to use for calculation 17 Approximate Energy Requirements Using 2005 kcal/Kg Calculation Used for Recommendations Kcal/kg Additional Notes Pro needs 0.8-1.2g/kg adjBW: 76-114g/day Fluid needs 1ml/kcal Nutrition Intervention Change Diet Order: Continue current diet order Goal #1 PO intake to meet at least 75% energy and pro needs Follow-Up By: 01/24/22 Additional Comments F/U: intakes, wt
[2022-01-20] MEDS ORDERED: WARFARIN 2.5 MG TAB PO NR (17:00)
[2022-01-20] MEDS ORDERED: ENOXAPARIN 100 MG/1 ML INJ SUB-Q SCH (17:00)
--- NOTE | 2022-01-20 17:54 | Progress Note ---
Assessment and Plan 56-year-old -[place] male with known history of AICD, MIs x2 , diabetes mellitus, CHF and hypertension , Hyperlipidemia presented to the emergency room via EMS with chest discomfort. There was a initial concern for STEMI prior to arrival in the emergency room. EKG was transmitted to the on-call medicaid billing specialist who indicates patient may need to be reassessed upon arrival in the emergency room. Upon arrival in the emergency room, patient was in no acute distress, AICD was said to have fired causing patient to have some chest discomfort. He subsequently went into the V. tach. Patient was thereby placed on amiodarone drip and heparin drip. Patient denies any fever or chills, no nausea or vomiting and no abdominal pain. He indicates he felt dizzy, denies any diaphoresis. Patient states he has not taken his diuretics today. Work-up in the emergency room , lab was significant for mild hypokalemia of 3.4, BUN of 24 and creatinine of 1.3, magnesium of 1.5, troponin of 0.063. Chest x-ray showed no acute findings. Later emergent intubation by the ED physician due to increase WOB, tachypnea, and lethagy. [place] frothy sputum noted in ETT, fulminant pulmonary edema. Additional 40mg Iv lasix administered. Patient is Currently on high vent setting, 100% Fio2 and 16 of Peep. SPO2 remains labile, repeat ABG pending. CCM on consult for vent management. ST with BBB noted on the monitor, on amiodarone gtt for VTach per Cardio, VSS. Patient eventually weaned from mechanical ventilation and extubated. Patient transfered to medical floor. Patient awake. Says feeling better. Patient is on O2 2 litres via nasal canula. O2 saturation 91%. CPAP 8 cm stand by in the room. Patient afebrile. No leukocytosis. Blood pressure 109/64 , Pulse 70 , respirations 20. Chest xray 01/17/22 Residual opacity left base. Patient is on S/C Lovenox, in Therapeutic doses, started on PO Warfarin, Famotidine. - Patient Problems (1) Implantable cardioverter-defibrillator (ICD) discharge Current Visit: Yes Status: Acute Plan to address problem: Management as per cardiology. (2) Ventricular tachycardia (paroxysmal) Current Visit: Yes Status: Acute Plan to address problem: Patient is on anticoagulation. Patient is on S/C Lovenox, in Therapeutic doses, started on PO Warfarin (3) Acute on chronic HFrEF (heart failure with reduced ejection fraction) Current Visit: No Status: Acute Plan to address problem: Management as per cardiology. (4) S/P CABG (coronary artery bypass graft) Current Visit: No Status: Chronic Plan to address problem: Management as per cardiology. (5) MARCIO (acute kidney injury) Current Visit: No Status: Acute (6) Acute respiratory failure with hypoxemia Current Visit: No Status: Acute Plan to address problem: O2 2 litres via nasal canula . Recommend albuterol inhaloe 2 puffs po qid prn for shortness of breath. PFT as out patient. (7) History of CVA (cerebrovascular accident) Current Visit: No Status: Chronic Plan to address problem: Management as per primary care. (8) Obesity (BMI 30.0-34.9) Current Visit: Yes Status: Acute Plan to address problem: Counselled to loose weight. Exercise and diet. (9) Sleep apnea Current Visit: No Status: Chronic Plan to address problem: CPAP 8 cm H20. (10) Type 2 diabetes mellitus Current Visit: No Status: Chronic Plan to address problem: Management as per primary care. Subjective Date of service: 01/20/22 Principal diagnosis: Acute respiratory failure, acute on chronic HFrEF, MARCIO Interval history: 56-year-old -[place] male with known history of AICD, MIs x2 , diabetes mellitus, CHF and hypertension , Hyperlipidemia presented to the emergency room via EMS with chest discomfort. There was a initial concern for STEMI prior to arrival in the emergency room. EKG was transmitted to the on-call medicaid billing specialist who indicates patient may need to be reassessed upon arrival in the emergency room. Upon arrival in the emergency room, patient was in no acute distress, AICD was said to have fired causing patient to have some chest discomfort. He subsequently went into the V. tach. Patient was thereby placed on amiodarone drip and heparin drip. Patient denies any fever or chills, no nausea or vomiting and no abdominal pain. He indicates he felt dizzy, denies any diaphoresis. Patient states he has not taken his diuretics today. Work-up in the emergency room , lab was significant for mild hypokalemia of 3.4, BUN of 24 and creatinine of 1.3, magnesium of 1.5, troponin of 0.063. Chest x-ray showed no acute findings. Later emergent intubation by the ED physician due to increase WOB, tachypnea, and lethagy. [place] frothy sputum noted in ETT, fulminant pulmonary edema. Additional 40mg Iv lasix administered. Patient is Currently on high vent setting, 100% Fio2 and 16 of Peep. SPO2 remains labile, repeat ABG pending. CCM on consult for vent management. ST with BBB noted on the monitor, on amiodarone gtt for VTach per Cardio, VSS. Patient eventually weaned from mechanical ventilation and extubated. Patient transfered to medical floor. Patient awake. Says feeling better. Patient is on O2 2 litres via nasal canula. O2 saturation 91%. CPAP 8 cm stand by in the room. Patient afebrile. No leukocytosis. Blood pressure 109/64 , Pulse 70 , respirations 20. Chest xray 01/17/22 Residual opacity left base. Patient is on S/C Lovenox, in Therapeutic doses, started on PO Warfarin, Famotidine. Objective Vital Signs - 12hr 01/20/22 01/20/22 01/20/22 08:42 09:08 12:00 Temperature 97.9 F Pulse Rate 69 71 Respiratory 18 Rate Blood Pressure 141/83 O2 Sat by Pulse 99 98 98 Oximetry 01/20/22 01/20/22 01/20/22 12:03 14:10 16:10 Temperature 97.2 F L 97.7 F Pulse Rate 66 64 Respiratory 18 18 Rate Blood Pressure 114/70 118/67 O2 Sat by Pulse 100 93 98 Oximetry Constitutional: no acute distress, alert Eyes: non-icteric ENT: oropharynx moist Neck: supple, no lymphadenopathy Effort: normal Ascultation: Bilateral: diminished breath sounds, rhonchi Cardiovascular: irregular rhythm, other (S1,S2) Gastrointestinal: normoactive bowel sounds, soft, non-tender, non-distended Integumentary: other (Right femoral HD catheter, Bustamante catheter) Extremities: no cyanosis, no edema, pulses normal, edema Neurologic: normal mental status, non-focal exam, pupils equal and round, CN II- XII normal, motor strength normal and Psychiatric: mood appropriate, affect normal CBC and BMP: 01/17/22 05:20 01/21/22 05:05 ABG, PT/INR, D-dimer: ABG ABG pH 7.432 pH Units (7.350-7.450) 01/15/22 04:15 ABG pCO2 34.4 mm Hg 01/15/22 04:15 ABG pO2 101.6 mm Hg (80.0-90.0) H 01/15/22 04:15 ABG O2 Saturation 97.8 % (95.0-99.0) 01/15/22 04:15 PT/INR, D-dimer PT 20.6 Sec. (12.2-14.9) H 01/20/22 04:42 INR 1.56 (0.87-1.13) H 01/20/22 04:42 Abnormal lab findings: Abnormal Labs 01/10/22 01/10/22 01/10/22 21:47 21:47 21:47 WBC Hgb Hct MCH MCHC RDW 19.5 H Lymph % (Auto) 6.0 L Lymph # (Auto) 0.3 L Seg Neutrophils % 85.9 H Seg Neutrophils # PT 27.8 H INR 2.25 H APTT 38.8 H ABG pH ABG pO2 ABG HCO3 ABG O2 Saturation ABG Base Excess ABG Hemoglobin Oxyhemoglobin Sodium 147 H Potassium 3.4 L Chloride 109.0 H Carbon Dioxide BUN 24 H Creatinine Glucose 149 H POC Glucose Lactic Acid Calcium Phosphorus Magnesium Total Bilirubin 1.30 H Direct Bilirubin AST ALT Total Creatine Kinase Troponin T 0.063 H C-Reactive Protein Total Protein Albumin HDL Cholesterol 35 L Urine Blood Urine WBC (Auto) Urine Creatinine Urine Total Protein 01/10/22 01/11/22 01/11/22 21:47 00:12 00:15 WBC Hgb Hct MCH MCHC RDW Lymph % (Auto) Lymph # (Auto) Seg Neutrophils % Seg Neutrophils # PT INR APTT ABG pH ABG pO2 ABG HCO3 ABG O2 Saturation ABG Base Excess ABG Hemoglobin Oxyhemoglobin Sodium Potassium Chloride Carbon Dioxide BUN Creatinine Glucose POC Glucose 130 H Lactic Acid Calcium Phosphorus Magnesium 1.50 L Total Bilirubin Direct Bilirubin AST ALT Total Creatine Kinase Troponin T 0.058 H C-Reactive Protein Total Protein Albumin HDL Cholesterol Urine Blood Urine WBC (Auto) Urine Creatinine Urine Total Protein 01/11/22 01/11/22 01/11/22 04:20 04:20 09:09 WBC Hgb Hct MCH MCHC RDW Lymph % (Auto) Lymph # (Auto) Seg Neutrophils % Seg Neutrophils # PT INR APTT ABG pH ABG pO2 ABG HCO3 ABG O2 Saturation ABG Base Excess ABG Hemoglobin Oxyhemoglobin Sodium Potassium Chloride Carbon Dioxide 21 L BUN 23 H Creatinine 1.4 H Glucose 157 H POC Glucose Lactic Acid Calcium Phosphorus Magnesium Total Bilirubin Direct Bilirubin AST ALT Total Creatine Kinase Troponin T 0.075 H D C-Reactive Protein Total Protein Albumin HDL Cholesterol Urine Blood Large A Urine WBC (Auto) 22.0 H Urine Creatinine Urine Total Protein 01/11/22 01/11/22 01/11/22 09:19 09:55 14:15 WBC Hgb Hct MCH MCHC RDW Lymph % (Auto) Lymph # (Auto) Seg Neutrophils % Seg Neutrophils # PT INR APTT ABG pH 7.265 L ABG pO2 40.4 L ABG HCO3 ABG O2 Saturation 64.5 L ABG Base Excess -5.9 L -3.5 L ABG Hemoglobin Oxyhemoglobin 63.1 L 94.9 L Sodium Potassium Chloride Carbon Dioxide BUN Creatinine Glucose POC Glucose 236 H Lactic Acid Calcium Phosphorus Magnesium Total Bilirubin Direct Bilirubin AST ALT Total Creatine Kinase Troponin T C-Reactive Protein Total Protein Albumin HDL Cholesterol Urine Blood Urine WBC (Auto) Urine Creatinine Urine Total Protein 01/11/22 01/11/22 01/11/22 17:09 19:41 19:41 WBC Hgb Hct MCH MCHC RDW Lymph % (Auto) Lymph # (Auto) Seg Neutrophils % Seg Neutrophils # PT INR APTT ABG pH ABG pO2 ABG HCO3 ABG O2 Saturation ABG Base Excess ABG Hemoglobin Oxyhemoglobin Sodium Potassium Chloride Carbon Dioxide 18 L BUN 34 H Creatinine 2.2 H D Glucose 153 H POC Glucose 137 H Lactic Acid 3.30 H* Calcium Phosphorus Magnesium Total Bilirubin Direct Bilirubin AST ALT Total Creatine Kinase Troponin T C-Reactive Protein Total Protein Albumin HDL Cholesterol Urine Blood Urine WBC (Auto) Urine Creatinine Urine Total Protein 01/11/22 01/11/22 01/12/22 19:41 20:26 00:24 WBC Hgb Hct MCH MCHC RDW Lymph % (Auto) Lymph # (Auto) Seg Neutrophils % Seg Neutrophils # PT INR APTT ABG pH ABG pO2 218.2 H ABG HCO3 18.5 L ABG O2 Saturation 99.3 H ABG Base Excess -5.0 L ABG Hemoglobin Oxyhemoglobin Sodium Potassium Chloride Carbon Dioxide BUN Creatinine Glucose POC Glucose 155 H Lactic Acid Calcium Phosphorus 1.70 L Magnesium 4.80 H Total Bilirubin Direct Bilirubin AST ALT Total Creatine Kinase Troponin T C-Reactive Protein Total Protein Albumin HDL Cholesterol Urine Blood Urine WBC (Auto) Urine Creatinine Urine Total Protein 01/12/22 01/12/22 01/12/22 05:10 05:10 05:10 WBC Hgb Hct MCH MCHC RDW Lymph % (Auto) Lymph # (Auto) Seg Neutrophils % Seg Neutrophils # PT 36.1 H INR 3.09 H APTT ABG pH ABG pO2 ABG HCO3 ABG O2 Saturation ABG Base Excess ABG Hemoglobin Oxyhemoglobin Sodium Potassium Chloride Carbon Dioxide BUN Creatinine Glucose POC Glucose Lactic Acid 3.80 H* Calcium Phosphorus Magnesium Total Bilirubin Direct Bilirubin AST ALT Total Creatine Kinase Troponin T C-Reactive Protein 13.20 H Total Protein Albumin HDL Cholesterol Urine Blood Urine WBC (Auto) Urine Creatinine Urine Total Protein 01/12/22 01/12/22 01/12/22 05:20 08:57 09:30 WBC Hgb Hct MCH MCHC RDW Lymph % (Auto) Lymph # (Auto) Seg Neutrophils % Seg Neutrophils # PT INR APTT ABG pH ABG pO2 194.1 H ABG HCO3 ABG O2 Saturation 99.2 H ABG Base Excess ABG Hemoglobin 12.7 L Oxyhemoglobin Sodium Potassium Chloride Carbon Dioxide 21 L BUN 42 H Creatinine 3.3 H Glucose 178 H POC Glucose Lactic Acid 3.60 H* Calcium Phosphorus Magnesium Total Bilirubin Direct Bilirubin AST 73 H ALT 79 H Total Creatine Kinase Troponin T C-Reactive Protein Total Protein 6.2 L Albumin 3.3 L HDL Cholesterol Urine Blood Urine WBC (Auto) Urine Creatinine Urine Total Protein 01/12/22 01/12/22 01/12/22 09:38 14:30 15:23 WBC Hgb Hct MCH MCHC RDW 20.0 H Lymph % (Auto) Lymph # (Auto) Seg Neutrophils % Seg Neutrophils # PT INR APTT ABG pH ABG pO2 ABG HCO3 ABG O2 Saturation ABG Base Excess ABG Hemoglobin Oxyhemoglobin Sodium Potassium Chloride Carbon Dioxide BUN Creatinine Glucose POC Glucose Lactic Acid 4.00 H* Calcium Phosphorus Magnesium Total Bilirubin Direct Bilirubin AST ALT Total Creatine Kinase Troponin T C-Reactive Protein Total Protein Albumin HDL Cholesterol Urine Blood Urine WBC (Auto) Urine Creatinine 220.1 H Urine Total Protein 105 H 01/12/22 01/12/22 01/12/22 15:23 16:50 16:51 WBC Hgb Hct MCH MCHC RDW Lymph % (Auto) Lymph # (Auto) Seg Neutrophils % Seg Neutrophils # PT INR APTT ABG pH ABG pO2 ABG HCO3 ABG O2 Saturation ABG Base Excess ABG Hemoglobin Oxyhemoglobin Sodium Potassium Chloride Carbon Dioxide BUN Creatinine Glucose POC Glucose 207 H Lactic Acid Calcium Phosphorus Magnesium Total Bilirubin Direct Bilirubin AST ALT Total Creatine Kinase 202 H Troponin T C-Reactive Protein Total Protein Albumin HDL Cholesterol Urine Blood Large A Urine WBC (Auto) 85.0 H Urine Creatinine Urine Total Protein 01/12/22 01/13/22 01/13/22 16:51 03:09 04:04 WBC Hgb Hct MCH MCHC RDW Lymph % (Auto) Lymph # (Auto) Seg Neutrophils % Seg Neutrophils # PT 46.8 H INR 4.25 H APTT ABG pH ABG pO2 226.5 H ABG HCO3 17.0 L ABG O2 Saturation 99.3 H ABG Base Excess -7.1 L ABG Hemoglobin 13.8 L Oxyhemoglobin Sodium Potassium Chloride Carbon Dioxide BUN Creatinine Glucose POC Glucose Lactic Acid Calcium Phosphorus Magnesium Total Bilirubin Direct Bilirubin AST ALT Total Creatine Kinase Troponin T C-Reactive Protein Total Protein Albumin HDL Cholesterol Urine Blood Urine WBC (Auto) Urine Creatinine 224.3 H Urine Total Protein 105 H 01/13/22 01/13/22 01/13/22 06:31 08:28 08:47 WBC 12.1 H Hgb Hct MCH MCHC RDW 20.1 H Lymph % (Auto) 5.0 L Lymph # (Auto) 0.6 L Seg Neutrophils % 88.2 H Seg Neutrophils # 10.6 H PT INR APTT ABG pH ABG pO2 ABG HCO3 ABG O2 Saturation ABG Base Excess ABG Hemoglobin Oxyhemoglobin Sodium Potassium Chloride Carbon Dioxide 19 L BUN 62 H Creatinine 4.9 H Glucose 128 H POC Glucose 130 H Lactic Acid Calcium Phosphorus Magnesium Total Bilirubin Direct Bilirubin AST ALT Total Creatine Kinase Troponin T C-Reactive Protein Total Protein Albumin HDL Cholesterol Urine Blood Urine WBC (Auto) Urine Creatinine Urine Total Protein 01/13/22 01/14/22 01/14/22 11:41 04:00 04:00 WBC 11.5 H Hgb 11.7 L Hct MCH 27 L MCHC RDW 19.8 H Lymph % (Auto) Lymph # (Auto) Seg Neutrophils % Seg Neutrophils # PT INR APTT ABG pH ABG pO2 ABG HCO3 ABG O2 Saturation ABG Base Excess ABG Hemoglobin Oxyhemoglobin Sodium Potassium 3.5 L D Chloride Carbon Dioxide 21 L BUN 81 H Creatinine 5.2 H Glucose 133 H POC Glucose 142 H Lactic Acid Calcium 8.1 L Phosphorus Magnesium Total Bilirubin Direct Bilirubin AST ALT Total Creatine Kinase Troponin T C-Reactive Protein Total Protein Albumin HDL Cholesterol Urine Blood Urine WBC (Auto) Urine Creatinine Urine Total Protein 01/14/22 01/14/22 01/14/22 04:20 05:46 11:18 WBC Hgb Hct MCH MCHC RDW Lymph % (Auto) Lymph # (Auto) Seg Neutrophils % Seg Neutrophils # PT INR APTT ABG pH ABG pO2 45.7 L ABG HCO3 ABG O2 Saturation 77.6 L ABG Base Excess -2.2 L ABG Hemoglobin 12.2 L Oxyhemoglobin 75.8 L Sodium Potassium Chloride Carbon Dioxide BUN Creatinine Glucose POC Glucose 117 H 127 H Lactic Acid Calcium Phosphorus Magnesium Total Bilirubin Direct Bilirubin AST ALT Total Creatine Kinase Troponin T C-Reactive Protein Total Protein Albumin HDL Cholesterol Urine Blood Urine WBC (Auto) Urine Creatinine Urine Total Protein 01/14/22 01/14/22 01/15/22 13:10 Unknown 04:15 WBC Hgb Hct MCH MCHC RDW Lymph % (Auto) Lymph # (Auto) Seg Neutrophils % Seg Neutrophils # PT 49.5 H INR 4.55 H APTT ABG pH ABG pO2 92.1 H 101.6 H ABG HCO3 ABG O2 Saturation ABG Base Excess -2.1 L ABG Hemoglobin 11.6 L 11.2 L Oxyhemoglobin Sodium Potassium Chloride Carbon Dioxide BUN Creatinine Glucose POC Glucose Lactic Acid Calcium Phosphorus Magnesium Total Bilirubin Direct Bilirubin AST ALT Total Creatine Kinase Troponin T C-Reactive Protein Total Protein Albumin HDL Cholesterol Urine Blood Urine WBC (Auto) Urine Creatinine Urine Total Protein 01/15/22 01/15/22 01/15/22 04:45 04:45 04:45 WBC Hgb 11.4 L Hct 35.3 L MCH 27 L MCHC RDW 19.6 H Lymph % (Auto) Lymph # (Auto) Seg Neutrophils % Seg Neutrophils # PT 33.5 H INR 2.83 H APTT ABG pH ABG pO2 ABG HCO3 ABG O2 Saturation ABG Base Excess ABG Hemoglobin Oxyhemoglobin Sodium Potassium 3.0 L Chloride Carbon Dioxide BUN 80 H Creatinine 4.5 H Glucose 103 H POC Glucose Lactic Acid Calcium 8.0 L Phosphorus Magnesium Total Bilirubin Direct Bilirubin AST ALT Total Creatine Kinase Troponin T C-Reactive Protein Total Protein Albumin HDL Cholesterol Urine Blood Urine WBC (Auto) Urine Creatinine Urine Total Protein 01/16/22 01/16/22 01/16/22 05:10 05:10 05:10 WBC Hgb 10.8 L Hct 33.1 L MCH MCHC RDW 19.3 H Lymph % (Auto) Lymph # (Auto) Seg Neutrophils % Seg Neutrophils # PT 22.9 H INR 1.78 H APTT ABG pH ABG pO2 ABG HCO3 ABG O2 Saturation ABG Base Excess ABG Hemoglobin Oxyhemoglobin Sodium Potassium 3.2 L Chloride 107.6 H Carbon Dioxide BUN 68 H Creatinine 3.4 H Glucose POC Glucose Lactic Acid Calcium 8.0 L Phosphorus Magnesium Total Bilirubin Direct Bilirubin AST ALT Total Creatine Kinase Troponin T C-Reactive Protein Total Protein Albumin HDL Cholesterol Urine Blood Urine WBC (Auto) Urine Creatinine Urine Total Protein 01/16/22 01/17/22 01/17/22 13:18 04:00 05:20 WBC Hgb Hct MCH MCHC RDW Lymph % (Auto) Lymph # (Auto) Seg Neutrophils % Seg Neutrophils # PT 17.5 H INR 1.28 H APTT ABG pH ABG pO2 ABG HCO3 ABG O2 Saturation ABG Base Excess ABG Hemoglobin Oxyhemoglobin Sodium Potassium 3.5 L Chloride Carbon Dioxide BUN 55 H Creatinine 2.6 H Glucose POC Glucose 130 H Lactic Acid Calcium Phosphorus Magnesium Total Bilirubin Direct Bilirubin AST 106 H ALT 262 H Total Creatine Kinase Troponin T C-Reactive Protein Total Protein Albumin 3.4 L HDL Cholesterol Urine Blood Urine WBC (Auto) Urine Creatinine Urine Total Protein 01/17/22 01/17/22 01/17/22 05:20 11:58 16:55 WBC Hgb 11.4 L Hct MCH 27 L MCHC 31 L RDW 19.1 H Lymph % (Auto) Lymph # (Auto) Seg Neutrophils % Seg Neutrophils # PT INR APTT ABG pH ABG pO2 ABG HCO3 ABG O2 Saturation ABG Base Excess ABG Hemoglobin Oxyhemoglobin Sodium Potassium Chloride Carbon Dioxide BUN Creatinine Glucose POC Glucose 109 H 133 H Lactic Acid Calcium Phosphorus Magnesium Total Bilirubin Direct Bilirubin AST ALT Total Creatine Kinase Troponin T C-Reactive Protein Total Protein Albumin HDL Cholesterol Urine Blood Urine WBC (Auto) Urine Creatinine Urine Total Protein 01/18/22 01/18/22 01/18/22 09:15 09:15 09:15 WBC Hgb Hct MCH MCHC RDW Lymph % (Auto) Lymph # (Auto) Seg Neutrophils % Seg Neutrophils # PT 18.2 H INR 1.34 H APTT ABG pH ABG pO2 ABG HCO3 ABG O2 Saturation ABG Base Excess ABG Hemoglobin Oxyhemoglobin Sodium Potassium Chloride Carbon Dioxide BUN 47 H Creatinine 2.2 H Glucose 140 H POC Glucose Lactic Acid Calcium Phosphorus Magnesium Total Bilirubin Direct Bilirubin 0.4 H AST 60 H ALT 212 H Total Creatine Kinase Troponin T C-Reactive Protein Total Protein Albumin 3.3 L HDL Cholesterol Urine Blood Urine WBC (Auto) Urine Creatinine Urine Total Protein 01/19/22 01/19/22 01/19/22 03:59 03:59 11:19 WBC Hgb Hct MCH MCHC RDW Lymph % (Auto) Lymph # (Auto) Seg Neutrophils % Seg Neutrophils # PT 19.4 H INR 1.45 H APTT ABG pH ABG pO2 ABG HCO3 ABG O2 Saturation ABG Base Excess ABG Hemoglobin Oxyhemoglobin Sodium Potassium Chloride Carbon Dioxide BUN 47 H Creatinine 2.1 H Glucose 106 H POC Glucose 120 H Lactic Acid Calcium Phosphorus Magnesium Total Bilirubin Direct Bilirubin AST ALT Total Creatine Kinase Troponin T C-Reactive Protein Total Protein Albumin HDL Cholesterol Urine Blood Urine WBC (Auto) Urine Creatinine Urine Total Protein 01/19/22 01/19/22 01/20/22 18:18 21:05 04:42 WBC Hgb Hct MCH MCHC RDW Lymph % (Auto) Lymph # (Auto) Seg Neutrophils % Seg Neutrophils # PT INR APTT ABG pH ABG pO2 ABG HCO3 ABG O2 Saturation ABG Base Excess ABG Hemoglobin Oxyhemoglobin Sodium Potassium Chloride Carbon Dioxide 31 H BUN 48 H Creatinine 2.2 H Glucose 101 H POC Glucose 144 H 107 H Lactic Acid Calcium Phosphorus Magnesium Total Bilirubin Direct Bilirubin AST ALT Total Creatine Kinase Troponin T C-Reactive Protein Total Protein Albumin HDL Cholesterol Urine Blood Urine WBC (Auto) Urine Creatinine Urine Total Protein 01/20/22 01/20/22 04:42 12:01 WBC Hgb Hct MCH MCHC RDW Lymph % (Auto) Lymph # (Auto) Seg Neutrophils % Seg Neutrophils # PT 20.6 H INR 1.56 H APTT ABG pH ABG pO2 ABG HCO3 ABG O2 Saturation ABG Base Excess ABG Hemoglobin Oxyhemoglobin Sodium Potassium Chloride Carbon Dioxide BUN Creatinine Glucose POC Glucose 116 H Lactic Acid Calcium Phosphorus Magnesium Total Bilirubin Direct Bilirubin AST ALT Total Creatine Kinase Troponin T C-Reactive Protein Total Protein Albumin HDL Cholesterol Urine Blood Urine WBC (Auto) Urine Creatinine Urine Total Protein Chest x-ray: report reviewed, image reviewed Additional Studies: CHEST 1 VIEW 01/17/2022 3:33 AM INDICATION / CLINICAL INFORMATION: follow up respiratory failure. COMPARISON: Previous day. FINDINGS: SUPPORT DEVICES: Unchanged. HEART / MEDIASTINUM: Stable cardiomegaly. LUNGS / PLEURA: Residual opacity left base. No pneumothorax. ADDITIONAL FINDINGS: No significant additional findings. IMPRESSION: Residual opacity left base. Allied health notes reviewed: nursing
[2022-01-21 05:58] LABS: INR 1.58 (0.87-1.13)
[2022-01-21 07:19] VITALS: BP 126/77
--- NOTE | 2022-01-21 08:08 | Discharge Summary ---
Providers - Providers Date of Admission: 01/10/22 23:50 Date of discharge: 01/21/22 Attending physician: NITO GREEN MD 01/10/22 23:50 Consult to Dietitian/Nutrition [CONS] Routine Physician Instructions: Reason For Exam: Reason for Consult: Diet education Consult to Physician [CONS] Routine Comment: Consulting Provider: REE RIOJAS Physician Instructions: Reason For Exam: Cardiac arrhythmia 01/11/22 01:21 Consult to Wound/ET Nurse [CONS] Routine Reason For Exam: wound eval 01/11/22 07:16 Consult to Physician [CONS] Routine Comment: Consulting Provider: KING BARAJAS Physician Instructions: Reason For Exam: AICD discharge, V. tach 01/11/22 19:33 Consult to Dietitian/Nutrition [CONS] Routine Physician Instructions: Reason For Exam: Reason for Consult: Write/Manage Tube Feeding 01/12/22 12:06 Consult to Physician [CONS] Routine Comment: Consulting Provider: ESTHER LOZA Physician Instructions: Reason For Exam: MARCIO 01/16/22 08:51 Occupational Therapy Evaluate and Treat [CONS] Routine Comment: Reason For Exam: Debility Physical Therapy Evaluation and Treat [CONS] Routine Comment: Reason For Exam: Debility Speech Therapy Evaluation and Treat [CONS] Routine Reason For Exam: Swallow eval and treat 01/17/22 00:28 Consult to Wound/ET Nurse [CONS] Routine Reason For Exam: wound eval. wound on left lower leg 01/20/22 11:45 Consult to Case Management [CONS] Routine Services Needed at Discharge: Home O2 Notified:: case management Primary care physician: DIGITAL PRINTER Hospitalization Reason for admission: chest discomfort, aicd shock Condition: Stable Hospital course: Interval history: This is a 56-year-old male with aortic regurgitation, CVA (2020), prostate cancer (2020), nonobstructive CAD, heart failure with reduced EF, DM, HLD, HTN, s/p bivalve ICD who presented to the emergency department on 01/10 via EMS for evaluation of chest discomfort which started around 6 PM on 01/10 and the patient stated he experienced the episode of dizziness followed by severe thump in his chest. EMS was concerned about a STEMI however ECG was transmitted to the on- call grinder operator external tool who indicated patient may need to be reassessed upon arrival to the emergency department. Upon arrival to the emergency department patient was in no acute distress, AICD was said to have fired causing the patient to have some chest discomfort and he subsequently went into V. tach and was placed on amiodarone and heparin drip. Work-up in the emergency department revealed hypokalemia at 3.4, elevated BUN/creatinine at 1.3/24, hypomagnesemia at 1.5 and slightly elevated troponin at 0.063. CXR showed no acute findings. editor magazine of 01/11 patient was intubated due to hypoxia and tachycardia by the ED physician. Patient was admitted to the hospitalist service with consults to cardiology, nephrology and CCM. Hospital course to date: 01-10 admit 01/11: S/p emergent intubation by the ED physician due to increase WOB, tachypnea, and lethagy. [place] frothy sputum noted in ETT, fulminant pulmonary edema. Additional 40mg Iv lasix administered. Patient is Currently on high vent setting, 100% Fio2 and 16 of Peep. SPO2 remains labile, repeat ABG pending. CCM on consult for vent management. ST with BBB noted on the monitor, on amiodarone gtt for VTach per Cardio, VSS, echo pending. Monitor electrolytes and replete as needed. 01/12: Stable on the vent this am. This am ABG and Cxr noted. Now on pressors for hypotension, remains on amiodarone gtt. Accelerated junctional rhythm noted on the monitor this am, Dobutamine gtt held. 2D Echo pending. With worsen renal function this am, now oliguric, only 200cc in last 24hrs. IV lasix held, Nephrology consulted. Patient remains coagulopathic, per records patient was on Coumadin at home. INR 3.09 this am, Hold AC for now. 01/13: Remains stable on the vent, down to 50% Fio2 and 8 of peep this am. Plan for SAT trial this am to assess mentation, plan for possible PSV trial in the am. Patient is off pressors this am, remains on Amio gtt. Remains in a junctional rhythm with frequent ectopy. Enteral nutrition initiated. Remains oliguric with worsening renal function, awaiting Nephrology final recs. 8: Following commands this am, continue vent wean for PSV trial later on today or tomorrow. Remains on Amio gtt, back on dobutamine gtt per Cardio, EF 10- to 15%. Patient remains afebrile and off pressors, VSS, cultures with NGTD. IV Abx D/C for now. With worsen renal function this am, but making urine this am. Awaiting Nephro recs. Continue to monitor PT/INR and for s/s of any active bleeding. Continue to hold AC for now. 01/15: Remains on Amio and dobutamine gtt, stable on th event, following commands. Plan for PSV trial this am for possible extubation. Good UOP in last 24hrs, mild improvement in renal function. Trialysis cath inserted 01-17 to PO amio; dc dobutamine; transfer orders 01-18 added coreg; floor transfer pending 01/19: No acute events overnight, awaiting transfer to floor. 01/20: Currently on 2L NC. Was walked by care team. D/w CM re: set up for home O2. INR slowly uptrending, 1.56 today. No overlap therapy on meds, started on therapeutic lovenox 1mg/kg q24hr (renal dosing). Patient follows with primary where he get monthly INR checks. Will plan for discharge tomorrow with warfarin and lovenox bridge as well as detailed instructions for OP INR tracking. 01/21: On room air. Does not qualify for home oxygen. INR 1.58. Discharge home with rx for amiodorone, lovenox injections, hydralazine, lasix, imdur,aldactone, warfarin. Plan for discharge home today. Assessment and plan: This is a 56-year-old male with aortic regurgitation, CVA (2020), prostate cancer, nonobstructive CAD, heart failure with reduced EF, DM, HLD, HTN, s/p bivalve ICD placement admitted to the hospitalist service with acute on chronic heart failure, acute pulmonary edema, acute hypoxic respiratory failure, acute kidney injury Neuro: h/o CVA -Continue supportive care -Reorientation as needed -Maintain sleep-wake cycle -As needed analgesia -PT/OT Cardiac: Acute on chronic heart failure with reduced EF, s/p AICD shock, A. fib, mildly elevated troponin, h/o HTN, HLD, s/p bivalve ICD -Cardiology consulted, appreciate recommendations -Blood pressure monitoring per protocol -S/p vasopressor support with Levophed -Cardiology work-up: -Echocardiogram 03/2019: Mild to moderate concentric LV hypertrophy is observed. The LV size is moderate to severely dilated. RV global systolic function is mildly reduced. Mild aortic regurgitation. RV systolic pressure is calculated at 21 mmHg. Global LV systolic function is severely decreased. Estimated EF is 20 to 25%. -Cath- 05/2010 at [facility]: Nonobstructive CAD -Echo 01/11/2022-EF 10 to 15%. LV is severely dilated. Severe global hypokinesis of LV. Left ventricular diastolic function is indeterminate. Right ventricle is dilated. Right ventricle is hypokinetic. Left atrium is mildly dilated. Trace to mild aortic regurgitation. Mild mitral regurgitation. Mild tricuspid regurgitation. IVC is dilated. IVC collapses with less than 50% of inspiration -Coumadin -S/p dobutamine -Imdur, hydralazine, Aldactone, Lipitor, Coreg Respiratory: Acute hypoxic respiratory failure, pulmonary edema -CCM consulted, appreciate recommendations -Intubated on 01/11 and extubated on 01/15 -Pulmonary hygiene -SPO2 monitor per protocol GI: Transaminitis, obesity -24 hours -270 mL -PPI -Cardiac diet -Trend LFTs : Acute kidney injury -S/p [place]ante -Nephrology consulted, appreciate recommendations -Monitor intake and output -Lasix 40 mg 01/18, Lasix 40 mg 01/19 x 2 doses -Resume p.o. Lasix tomorrow -Renally dose medications -Avoid nephrotoxic medications -Renal ultrasound shows some pleural small left renal cyst, free cortical regularities in the left kidney could represent chronic kidney changes- nonspecific -Trend BMP ID: NAD -f/u blood culture -NGTD x5 day, UC NGTD x 48 hours -Monitor WBC and temperature curve Endo: h/o DM -Avoid hypoglycemia -SSI -Accu-Cheks ACHS Heme: NAD -Trend CBC -Transfuse hemoglobin less than 7 -SCDs to BLE while in bed #Advance care planning Disease education conducted, care plan discussed, diagnoses discussed, prognosis discussed, patient is full code, patient acknowledges understanding and agree with care plan, +30 minutes. Disposition: HOME / SELF CARE / HOMELESS Final Discharge Diagnosis (Prints w/discharge instructions): Acute on chornic systolic heart failure exacerbation, AICD shock, pulmonary edema, respiratory fialure, Acute kidney injury, transaminitis, atrial fibrillation Time spent for discharge: 35 Core Measure Documentation - Palliative Care Palliative Care/ Comfort Measures: Not Applicable - Core Measures Any of the following diagnoses?: heart failure - Heart Failure Discharge Requirements FABY/ARB for LVSD if EF <40%: No Reason for no FABY/ARB: Renal impairment Beta christopher at discharge: Yes Exam - Physical Exam Narrative exam: Physical Exam: VITAL SIGNS: Reviewed. GENERAL: The patient appears normally developed, Vital signs as documented. on 2l /min nc. HEAD: No signs of head trauma. EYES: Pupils are equal. Extraocular motions intact. EARS: Hearing grossly intact. MOUTH: Oropharynx is normal. NECK: No adenopathy, no JVD. CHEST: Chest with clear breath sounds bilaterally. No wheezes, rales, or rhonchi. CARDIAC: Regular rate and rhythm. S1 and S2, without murmurs, gallops, or rubs. VASCULAR: BL LE edema, interval improvement Peripheral pulses normal and equal in all extremities. ABDOMEN: Soft, non tender and non distended. No rebound or guarding, and no masses palpated. Bowel Sounds normal. MUSCULOSKELETAL: Good range of motion of all major joints. Extremities without clubbing, cyanosis or edema. NEUROLOGIC EXAM: Alert and oriented x 4. no focal sensory or strength deficits. PSYCHIATRIC: Mood normal. SKIN: detail exam as documented in skin assessment - Constitutional Vitals: Temp Pulse Resp BP Pulse Ox 98.2 F 70 20 126/77 98 01/21/22 03:50 01/21/22 03:50 01/21/22 03:50 01/21/22 03:50 01/21/22 03:50 Plan Follow up with: JULIANA BURGOS MD [Primary Care Provider] - 3-5 Days GIN MCCANN MD [Staff Physician] - 10 Days (New address- [address] [phone] Patient needs follow up post ICU, possible sleep apnea. He needs evalaution for sleep apnea) DENNYS RIOJAS MD [Staff Physician] - 7 Days Forms: Warfarin Discharge Instruction Prescriptions: Spironolactone [Aldactone] 25 mg PO QDAY 30 Days #30 tablet hydrALAZINE [Apresoline TAB] 25 mg PO BID 30 Days #60 tablet Amiodarone [Cordarone 200 MG TAB] 200 mg PO DAILY 30 Days #30 tablet carvediloL [Coreg] 25 mg PO BID 30 Days #60 tablet Warfarin [Coumadin] 2.5 mg PO QDAY 30 Days #30 tab Enoxaparin 100 mg SUB-Q Q24H 30 Days #1 box ISOSORBIDE MONOnitrate [Imdur ER] 30 mg PO QDAY 30 Days #30 tablet Furosemide [Lasix] 40 mg PO DAILY 30 Days #30 tab
[2022-01-21] MEDS: INSULIN LISPRO 100 UNIT/ML SUB-Q SCH ×2 (08:47→12:05)
[2022-01-21] MEDS: hydrALAZINE 25 MG TAB PO SCH (10:46)
[2022-01-21] MEDS: FAMOTIDINE 10 MG TAB PO SCH (10:46)
[2022-01-21] MEDS: carvediloL 25 MG TAB PO SCH (10:46)
[2022-01-21] MEDS: THIAMINE 100 MG TAB PO SCH (10:46)
[2022-01-21] MEDS: DOCUSATE SODIUM 100 MG CAP PO SCH (10:46)
[2022-01-21] MEDS: FUROSEMIDE 40 MG/4 ML INJ IV SCH ×2 (10:47→12:06)
[2022-01-21] MEDS: AMIODARONE 200 MG TAB PO SCH (10:47)
[2022-01-21] MEDS: SPIRONOLACTONE 25 MG TAB PO SCH (10:47)
[2022-01-21] MEDS: SODIUM BICARBONATE 650 MG TAB PO SCH (10:48)
--- NOTE | 2022-01-21 11:20 | Progress Note ---
Assessment and Plan This is a 56-year-old -Prydeinig male, who follows with Dr. KURTIS Ferrer, with past medical history of aortic regurgitation, non-obstructive CAD (via [facility] 2009) HFrEF, diabetes, hyperlipidemia, hypertension, s/p BI-V ICD ([employer]) Acute on chronic HFrEF Acute Pulmonary edema - copious pink, frothy sputum noted on intubation Acute Hypoxic Respiratory Failure-pulmonology following S/p ICD shock MARCIO-nephrology following Mildly elevated troponin- likely 2/2 to acutely decompensated HF/pulmonary edema/ICD shocks Hyperlipidemia Hypertension DM - mangement per primary team S/p Bi-V ICD ([employer]) H/o Stroke (OAC with Coumadin since 11/2020) H/o Prostate CA (2020) Home medications: Amlodipine 5 mg p.o. daily, atorvastatin 80 mg p.o. nightly, clonidine 0.1 mg transdermal patch q. 7 days, carvedilol 25 mg p.o. twice daily, hydralazine 50 mg p.o. 3 times daily, Imdur 30 mg p.o. every morning, Lasix 40 mg p.o. daily, metformin 500 mg p.o. twice daily, warfarin 5 mg tablet p.o. daily. Echocardiogram 03/2019: Mild to moderate concentric LV hypertrophy is observed. The LV size is moderate to severely dilated. RV global systolic function is mildly reduced. Mild aortic regurgitation. RV systolic pressure is calculated at 21 mmHg. Global LV systolic function is severely decreased. Estimated EF is 20 to 25%. Cath- 05/2010 at [facility]: Nonobstructive CAD Echo 01/11/2022-EF 10 to 15%. LV is severely dilated. Severe global hypokinesis of LV. Left ventricular diastolic function is indeterminate. Right ventricle is dilated. Right ventricle is hypokinetic. Left atrium is mildly dilated. Trace to mild aortic regurgitation. Mild mitral regurgitation. Mild tricuspid regurgitation. IVC is dilated. IVC collapses with less than 50% of inspiration Plan: Will stop Lasix IV and convert to Lasix 40 mg p.o. twice daily Will defer volume management to Nephrology due to renal function Continue Imdur 30 mg p.o. daily, hydralazine 25 mg p.o. twice daily and Aldactone 25 mg p.o. daily, Amiodorone 200 mg p.o. daily, statin, and Coreg 25mg PO BID. No FABY,ARB, or ARNI at this time due to renal function No asa due to allergy. Patient cardiac status otherwise stable for discharge Patient has a follow-up appointment with Dr. Ferrer, [facility] av specialist, on 02/03/2022 at 2 PM in our [place] location. Phone #[phone] Patient seen in conjunction with Dr. Benitez who agrees with the assessment and management of this patient. - Patient Problems (1) MARCIO (acute kidney injury) Current Visit: No Status: Acute (2) Non-ischemic cardiomyopathy Current Visit: No Status: Chronic (3) Acute pulmonary edema Current Visit: No Status: Acute (4) CAD (coronary artery disease) Current Visit: No Status: Chronic (5) Acute respiratory failure with hypoxemia Current Visit: No Status: Acute (6) Acute on chronic HFrEF (heart failure with reduced ejection fraction) Current Visit: No Status: Acute (7) Ischemic cardiomyopathy Current Visit: No Status: Chronic (8) Automatic implantable cardioverter-defibrillator in situ Current Visit: No Status: Chronic (9) HTN (hypertension) Current Visit: No Status: Chronic (10) Obesity Current Visit: No Status: Chronic (11) History of CVA (cerebrovascular accident) Current Visit: No Status: Chronic (12) Implantable cardioverter-defibrillator (ICD) discharge Current Visit: Yes Status: Acute (13) Ventricular tachycardia (paroxysmal) Current Visit: Yes Status: Acute Subjective Date of service: 01/21/22 Principal diagnosis: Acute respiratory failure, acute on chronic HFrEF, MARCOI Interval history: Patient sitting in a chair at bedside in no acute distress. Patient reports feeling much better Paced 70s with PVCs Objective Vital Signs Temp Pulse Resp BP Pulse Ox 01/21/22 08:29 94 01/21/22 03:50 98.2 F 70 20 126/77 98 01/21/22 00:32 78 18 98 01/21/22 00:00 68 01/20/22 23:45 97.9 F 67 18 127/68 97 01/20/22 22:00 97 01/20/22 21:37 70 109/64 01/20/22 19:53 97.9 F 70 20 109/64 91 01/20/22 16:10 97.7 F 64 18 118/67 98 07/14/22 14:10 93 01/20/22 12:03 97.2 F L 66 18 114/70 100 01/20/22 12:00 71 98 - Physical Examination General: No Apparent Distress HEENT: Positive: PERRL Neck: Positive: trachea midline Cardiac: Positive: Reg Rate and Rhythm Lungs: Positive: Normal Breath Sounds Neuro: Positive: Grossly Intact Abdomen: Positive: Soft, Active Bowel Sounds Skin: Negative: Rash Extremities: Present: upper extr. pulses, edema - Labs and Meds Coagulation 01/21/22 Range/Units 05:05 PT 20.8 H (12.2-14.9) Sec. INR 1.58 H (0.87-1.13) Comprehensive Metabolic Panel 01/21/22 Range/Units 05:05 Sodium 146 H (137-145) mmol/L Potassium 4.2 (3.6-5.0) mmol/L Chloride 104.5 (98-107) mmol/L Carbon Dioxide 30 (22-30) mmol/L BUN 49 H (9-20) mg/dL Creatinine 2.1 H (0.8-1.3) mg/dL Glucose 98 (75-100) mg/dL Calcium 9.0 (8.4-10.2) mg/dL - Imaging and Cardiology EKG: report reviewed, image reviewed Echo: report reviewed - Telemetry EKG Rhythm: Paced - EKG Sinus rhythms and dysrhythmias: sinus rhythm (RBBB) - Allied health notes Allied health notes reviewed: nursing
--- NOTE | 2022-01-21 11:53 | Progress Note ---
Assessment and Plan Assessment: * Nonoliguric acute kidney injury secondary to ATN * Acute on chronic HFrEF * Acute hypoxic respiratory failure, status post extubation * Pulmonary edema * Ventricular tachycardia s/p ICD discharge * Coronary artery disease * Hypokalemia * Transaminitis Plan: * Renal function is stable * Patient is s/p IV lasix - now changed to po * Replete KCl prn * Rate control per cardiology - currently on Amiodarone * Renally dose medications * Avoid nephrotoxins * Strict I/O ordered * Note plans for discharge. Will arrange outpatient nephrology follow up in 2 weeks. Subjective Date of service: 01/21/22 Principal diagnosis: Acute respiratory failure, acute on chronic HFrEF, MARCIO Interval history: Patient has no complaints. Breathing is comfortable. No longer requiring supplemental oxygen Objective - Vital Signs Vital signs: Vital Signs - 12hr 01/21/22 01/21/22 01/21/22 00:00 00:32 03:50 Temperature 98.2 F Pulse Rate 68 78 70 Respiratory 18 20 Rate Blood Pressure 126/77 O2 Sat by Pulse 98 98 Oximetry 01/21/22 01/21/22 08:29 10:00 Temperature Pulse Rate Respiratory Rate Blood Pressure O2 Sat by Pulse 94 97 Oximetry - General Appearance General appearance: well-developed, well-nourished Respiratory: Present: Clear to Ascultation Cardiology: regular, S1S2 Gastrointestinal: normal, no tenderness, no distended Integumentary: warm and dry Neurologic: alert and oriented x3 Musculoskeletal: other (trace edema) Psychiatric: cooperative - Lab 01/17/22 05:20 01/21/22 05:05 Most recent lab results ABG pH 7.432 pH Units (7.350-7.450) 01/15/22 04:15 ABG pCO2 34.4 mm Hg 01/15/22 04:15 ABG pO2 101.6 mm Hg (80.0-90.0) H 01/15/22 04:15 ABG HCO3 22.4 mmol/L (20.0-26.0) 01/15/22 04:15 ABG O2 Saturation 97.8 % (95.0-99.0) 01/15/22 04:15 Calcium 9.0 mg/dL (8.4-10.2) 01/21/22 05:05 Phosphorus 3.10 mg/dL (2.5-4.5) 01/17/22 04:00 Magnesium 2.20 mg/dL (1.7-2.3) 01/17/22 04:00 Urine Creatinine 224.3 mg/dL (0.1-20.0) H 01/12/22 16:51 Urine Total Protein 105 mg/dL (5-11.8) H 01/12/22 16:51 Medications & Allergies - Medications Allergies/Adverse Reactions: Allergies aspirin Adverse Reaction (Verified 01/10/22 21:41) Unknown patient is taking warfarin and has been advised to not take aspirin Home Medications: Home Medications Medication Instructions Recorded Confirmed Last Taken Type carvediloL [Coreg] 25 mg PO BID #60 tablet 08/20/13 01/14/22 09/22/18 Rx Furosemide [Lasix] 40 mg PO DAILY #30 tablet 09/17/13 01/14/22 01/15/17 08:00 Rx AtorvaSTATin [Lipitor] 80 mg PO QHS #30 tablet 01/19/17 01/14/22 Unknown Rx amLODIPine 10 mg PO DAILY 09/23/18 01/14/22 09/22/18 History cloNIDine-TTS PATCH [Catapres-Tts 1 patch TD Q7D 09/23/18 01/14/22 09/21/18 History 0.1MG Patch] hydrALAZINE [Apresoline TAB] 50 mg PO TID 09/23/18 01/14/22 09/22/18 History metFORMIN [Glucophage] 500 mg PO BID 09/23/18 01/14/22 Unknown History Potassium Chloride [K-Dur] 10 meq PO QDAY 03/28/19 01/14/22 Unknown History Warfarin [Coumadin] 7.5 mg PO DAILY@1700 tablet 03/30/19 01/14/22 Unknown Rx Fluticasone [Flonase] 1 spray NS QHS 01/20/22 01/20/22 Unknown History Warfarin [Coumadin] 5 mg PO 3XW 01/20/22 01/20/22 Unknown History allopurinoL [Zyloprim] 300 mg PO QDAY 01/20/22 01/20/22 Unknown History Amiodarone [Cordarone 200 MG TAB] 200 mg PO DAILY 30 Days #30 tablet 01/21/22 Unknown Rx Enoxaparin 100 mg SUB-Q Q24H 30 Days #1 box 01/21/22 Unknown Rx Furosemide [Lasix TAB] 40 mg PO 0600,1800 30 Days #60 01/21/22 Unknown Rx tablet ISOSORBIDE MONOnitrate [Imdur ER] 30 mg PO QDAY 30 Days #30 tablet 01/21/22 Unknown Rx Spironolactone [Aldactone] 25 mg PO QDAY 30 Days #30 tablet 01/21/22 Unknown Rx Warfarin [Coumadin] 2.5 mg PO QDAY 30 Days #30 tab 01/21/22 Unknown Rx carvediloL [Coreg] 25 mg PO BID 30 Days #60 tablet 01/21/22 Unknown Rx hydrALAZINE [Apresoline TAB] 25 mg PO BID 30 Days #60 tablet 01/21/22 Unknown Rx Active Medications: Generic Name Dose Route Start Last Admin Trade Name Freq PRN Reason Stop Dose Admin Acetaminophen 650 mg 01/10/22 23:49 Acetaminophen 325 Mg Tab PO Q6H PRN Pain MILD(1-3)/Fever >100.5/NÚÑEZ Amiodarone HCl 200 mg 01/19/22 10:00 01/21/22 10:47 Amiodarone 200 Mg Tab PO 200 mg DAILY SHAKEEL Administration Carvedilol 25 mg 01/18/22 11:00 01/21/22 10:46 Carvedilol 25 Mg Tab PO 25 mg BID SHAKEEL Administration Dextrose 50 ml 01/10/22 23:49 Dextrose 50% In Water (25gm) 50 Ml Syringe IV Q30MIN PRN Hypoglycemia Protocol Docusate Sodium 100 mg 01/17/22 22:00 01/21/22 10:46 Docusate Sodium 100 Mg Cap PO 100 mg BID SHAKEEL Administration Enoxaparin Sodium 100 mg 01/20/22 17:00 01/20/22 17:06 Enoxaparin 100 Mg/1 Ml Inj 1 mg/kg (100 mg) 100 mg SUB-Q Administration Q24H SHAKEEL Protocol Famotidine 10 mg 01/17/22 22:00 01/21/22 10:46 Famotidine 10 Mg Tab PO 10 mg BID SHAKEEL Administration Furosemide 40 mg 01/21/22 18:00 Furosemide 40 Mg Tab PO 0600,1800 SHAKEEL Hydralazine HCl 25 mg 01/19/22 10:00 01/21/22 10:46 Hydralazine 25 Mg Tab PO 25 mg BID SHAKEEL Administration Hydrophilic Ointment 1 applic 01/12/22 09:02 Lip Therapy Vaseline TP Q2HR PRN Dry Lips Insulin Human Lispro 0 unit 01/16/22 22:00 01/21/22 08:47 Insulin Lispro 100 Unit/Ml SUB-Q Not Given ACHS [facility] Protocol Isosorbide Mononitrate 30 mg 01/19/22 10:00 01/21/22 10:46 Isosorbide Mononitrate Er 30 Mg Tab PO 30 mg QDAY [facility] Administration Magnesium Hydroxide 30 ml 01/10/22 23:49 Magnesium Hydroxide (Mom) Oral Liqd Udc PO Q4H PRN Constipation Ondansetron HCl 4 mg 01/10/22 23:49 01/15/22 21:41 Ondansetron 4 Mg/2 Ml Inj IV 4 mg Q8H PRN Administration Nausea And Vomiting Sodium Bicarbonate 1,300 mg 01/13/22 14:00 01/21/22 10:48 Sodium Bicarbonate 650 Mg Tab PO 1,300 mg TID [facility] Administration Sodium Chloride 10 ml 01/11/22 10:00 01/21/22 10:48 Sodium Chloride 0.9% 10 Ml Flush Syringe IV 10 ml BID SHAKEEL Administration Sodium Chloride 10 ml 01/10/22 23:49 Sodium Chloride 0.9% 10 Ml Flush Syringe IV PRN PRN LINE FLUSH Spironolactone 25 mg 01/19/22 10:00 01/21/22 10:47 Spironolactone 25 Mg Tab PO 25 mg QDAY [facility] Administration Thiamine HCl 100 mg 01/18/22 10:00 01/21/22 10:46 Thiamine 100 Mg Tab PO 100 mg QDAY [facility] Administration Warfarin Sodium 4 mg 01/21/22 17:00 Warfarin 2 Mg Tab PO 01/22/22 16:59 DAILY@1700 NR
--- NOTE | 2022-01-21 13:26 | Progress Note ---
Assessment and Plan 56-year-old -[place] male with known history of AICD, MIs x2 , diabetes mellitus, CHF and hypertension , Hyperlipidemia presented to the emergency room via EMS with chest discomfort. There was a initial concern for STEMI prior to arrival in the emergency room. EKG was transmitted to the on-call coat padder who indicates patient may need to be reassessed upon arrival in the emergency room. Upon arrival in the emergency room, patient was in no acute distress, AICD was said to have fired causing patient to have some chest discomfort. He subsequently went into the V. tach. Patient was thereby placed on amiodarone drip and heparin drip. Patient denies any fever or chills, no nausea or vomiting and no abdominal pain. He indicates he felt dizzy, denies any diaphoresis. Patient states he has not taken his diuretics today. Work-up in the emergency room , lab was significant for mild hypokalemia of 3.4, BUN of 24 and creatinine of 1.3, magnesium of 1.5, troponin of 0.063. Chest x-ray showed no acute findings. Later emergent intubation by the ED physician due to increase WOB, tachypnea, and lethagy. [place] frothy sputum noted in ETT, fulminant pulmonary edema. Additional 40mg Iv lasix administered. Patient is Currently on high vent setting, 100% Fio2 and 16 of Peep. SPO2 remains labile, repeat ABG pending. CCM on consult for vent management. ST with BBB noted on the monitor, on amiodarone gtt for VTach per Cardio, VSS. Patient eventually weaned from mechanical ventilation and extubated. Patient transfered to medical floor. Patient awake and sitting up in bed. Patient is on room air. O2 saturation 97%. CPAP 10 cm, FIO2 30% on stand by in the room. No complaints of chest pain, shortness of breath or cough. Patient afebrile. No leukocytosis. Blood pressure 126/77, Pulse 70, respirations 20. Chest xray 01/17/22 Residual opacity left base. Patient is on S/C Lovenox, in Therapeutic doses, PO Warfarin, Famotidine, lasik. - Patient Problems (1) Implantable cardioverter-defibrillator (ICD) discharge Current Visit: Yes Status: Acute Plan to address problem: Management as per cardiology. (2) Ventricular tachycardia (paroxysmal) Current Visit: Yes Status: Acute Plan to address problem: Patient is on anticoagulation. Patient is on S/C Lovenox, in Therapeutic doses, started on PO Warfarin (3) Acute on chronic HFrEF (heart failure with reduced ejection fraction) Current Visit: No Status: Acute Plan to address problem: Management as per cardiology. (4) S/P CABG (coronary artery bypass graft) Current Visit: No Status: Chronic Plan to address problem: Management as per cardiology. (5) MARCIO (acute kidney injury) Current Visit: No Status: Acute Plan to address problem: Management per nephrology. (6) Acute respiratory failure with hypoxemia Current Visit: No Status: Acute Plan to address problem: Patient is on room air. O2 saturation 97%. Recommend albuterol inhaler 2 puffs po qid prn for shortness of breath. PFT as out patient. (7) History of CVA (cerebrovascular accident) Current Visit: No Status: Chronic Plan to address problem: Management as per primary care. (8) Obesity (BMI 30.0-34.9) Current Visit: Yes Status: Acute Plan to address problem: Counselled to loose weight. Exercise and diet. (9) Sleep apnea Current Visit: No Status: Chronic Plan to address problem: CPAP 8 cm H20. (10) Type 2 diabetes mellitus Current Visit: No Status: Chronic Plan to address problem: Management as per primary care. Subjective Date of service: 01/21/22 Principal diagnosis: Acute respiratory failure, acute on chronic HFrEF, MARCIO Interval history: 56-year-old -[place] male with known history of AICD, MIs x2 , diabetes mellitus, CHF and hypertension , Hyperlipidemia presented to the emergency room via EMS with chest discomfort. There was a initial concern for STEMI prior to arrival in the emergency room. EKG was transmitted to the on-call coat padder who indicates patient may need to be reassessed upon arrival in the emergency room. Upon arrival in the emergency room, patient was in no acute distress, AICD was said to have fired causing patient to have some chest discomfort. He subsequently went into the V. tach. Patient was thereby placed on amiodarone drip and heparin drip. Patient denies any fever or chills, no nausea or vomiting and no abdominal pain. He indicates he felt dizzy, denies any diaphoresis. Patient states he has not taken his diuretics today. Work-up in the emergency room , lab was significant for mild hypokalemia of 3.4, BUN of 24 and creatinine of 1.3, magnesium of 1.5, troponin of 0.063. Chest x-ray showed no acute findings. Later emergent intubation by the ED physician due to increase WOB, tachypnea, and lethagy. [place] frothy sputum noted in ETT, fulminant pulmonary edema. Additional 40mg Iv lasix administered. Patient is Currently on high vent setting, 100% Fio2 and 16 of Peep. SPO2 remains labile, repeat ABG pending. CCM on consult for vent management. ST with BBB noted on the monitor, on amiodarone gtt for VTach per Cardio, VSS. Patient eventually weaned from mechanical ventilation and extubated. Patient transfered to medical floor. Patient awake and sitting up in bed. Patient is on room air. O2 saturation 97%. CPAP 10 cm, FIO2 30% on stand by in the room. No complaints of chest pain, shortness of breath or cough. Patient afebrile. No leukocytosis. Blood pressure 126/77, Pulse 70, respirations 20. Chest xray 01/17/22 Residual opacity left base. Patient is on S/C Lovenox, in Therapeutic doses, PO Warfarin, Famotidine, lasik. Objective Vital Signs - 12hr 01/21/22 01/21/22 01/21/22 03:50 08:29 10:00 Temperature 98.2 F Pulse Rate 70 Respiratory 20 Rate Blood Pressure 126/77 O2 Sat by Pulse 98 94 97 Oximetry Constitutional: no acute distress, alert Eyes: non-icteric ENT: oropharynx moist Neck: supple, no lymphadenopathy Effort: normal Ascultation: Bilateral: diminished breath sounds, rhonchi Cardiovascular: irregular rhythm, other (S1,S2) Gastrointestinal: normoactive bowel sounds, soft, non-tender, non-distended Integumentary: other (Right femoral HD catheter, Bustamante catheter) Extremities: no cyanosis, no edema, pulses normal, edema Neurologic: normal mental status, non-focal exam, pupils equal and round, CN II- XII normal, motor strength normal and Psychiatric: mood appropriate, affect normal CBC and BMP: 01/17/22 05:20 01/21/22 05:05 ABG, PT/INR, D-dimer: ABG ABG pH 7.432 pH Units (7.350-7.450) 01/15/22 04:15 ABG pCO2 34.4 mm Hg 01/15/22 04:15 ABG pO2 101.6 mm Hg (80.0-90.0) H 01/15/22 04:15 ABG O2 Saturation 97.8 % (95.0-99.0) 01/15/22 04:15 PT/INR, D-dimer PT 20.8 Sec. (12.2-14.9) H 01/21/22 05:05 INR 1.58 (0.87-1.13) H 01/21/22 05:05 Abnormal lab findings: Abnormal Labs 01/10/22 01/10/22 01/10/22 21:47 21:47 21:47 WBC Hgb Hct MCH MCHC RDW 19.5 H Lymph % (Auto) 6.0 L Lymph # (Auto) 0.3 L Seg Neutrophils % 85.9 H Seg Neutrophils # PT 27.8 H INR 2.25 H APTT 38.8 H ABG pH ABG pO2 ABG HCO3 ABG O2 Saturation ABG Base Excess ABG Hemoglobin Oxyhemoglobin Sodium 147 H Potassium 3.4 L Chloride 109.0 H Carbon Dioxide BUN 24 H Creatinine Glucose 149 H POC Glucose Lactic Acid Calcium Phosphorus Magnesium Total Bilirubin 1.30 H Direct Bilirubin AST ALT Total Creatine Kinase Troponin T 0.063 H C-Reactive Protein Total Protein Albumin HDL Cholesterol 35 L Urine Blood Urine WBC (Auto) Urine Creatinine Urine Total Protein 01/10/22 01/11/22 01/11/22 21:47 00:12 00:15 WBC Hgb Hct MCH MCHC RDW Lymph % (Auto) Lymph # (Auto) Seg Neutrophils % Seg Neutrophils # PT INR APTT ABG pH ABG pO2 ABG HCO3 ABG O2 Saturation ABG Base Excess ABG Hemoglobin Oxyhemoglobin Sodium Potassium Chloride Carbon Dioxide BUN Creatinine Glucose POC Glucose 130 H Lactic Acid Calcium Phosphorus Magnesium 1.50 L Total Bilirubin Direct Bilirubin AST ALT Total Creatine Kinase Troponin T 0.058 H C-Reactive Protein Total Protein Albumin HDL Cholesterol Urine Blood Urine WBC (Auto) Urine Creatinine Urine Total Protein 01/11/22 01/11/22 01/11/22 04:20 04:20 09:09 WBC Hgb Hct MCH MCHC RDW Lymph % (Auto) Lymph # (Auto) Seg Neutrophils % Seg Neutrophils # PT INR APTT ABG pH ABG pO2 ABG HCO3 ABG O2 Saturation ABG Base Excess ABG Hemoglobin Oxyhemoglobin Sodium Potassium Chloride Carbon Dioxide 21 L BUN 23 H Creatinine 1.4 H Glucose 157 H POC Glucose Lactic Acid Calcium Phosphorus Magnesium Total Bilirubin Direct Bilirubin AST ALT Total Creatine Kinase Troponin T 0.075 H D C-Reactive Protein Total Protein Albumin HDL Cholesterol Urine Blood Large A Urine WBC (Auto) 22.0 H Urine Creatinine Urine Total Protein 01/11/22 01/11/22 01/11/22 09:19 09:55 14:15 WBC Hgb Hct MCH MCHC RDW Lymph % (Auto) Lymph # (Auto) Seg Neutrophils % Seg Neutrophils # PT INR APTT ABG pH 7.265 L ABG pO2 40.4 L ABG HCO3 ABG O2 Saturation 64.5 L ABG Base Excess -5.9 L -3.5 L ABG Hemoglobin Oxyhemoglobin 63.1 L 94.9 L Sodium Potassium Chloride Carbon Dioxide BUN Creatinine Glucose POC Glucose 236 H Lactic Acid Calcium Phosphorus Magnesium Total Bilirubin Direct Bilirubin AST ALT Total Creatine Kinase Troponin T C-Reactive Protein Total Protein Albumin HDL Cholesterol Urine Blood Urine WBC (Auto) Urine Creatinine Urine Total Protein 01/11/22 01/11/22 01/11/22 17:09 19:41 19:41 WBC Hgb Hct MCH MCHC RDW Lymph % (Auto) Lymph # (Auto) Seg Neutrophils % Seg Neutrophils # PT INR APTT ABG pH ABG pO2 ABG HCO3 ABG O2 Saturation ABG Base Excess ABG Hemoglobin Oxyhemoglobin Sodium Potassium Chloride Carbon Dioxide 18 L BUN 34 H Creatinine 2.2 H D Glucose 153 H POC Glucose 137 H Lactic Acid 3.30 H* Calcium Phosphorus Magnesium Total Bilirubin Direct Bilirubin AST ALT Total Creatine Kinase Troponin T C-Reactive Protein Total Protein Albumin HDL Cholesterol Urine Blood Urine WBC (Auto) Urine Creatinine Urine Total Protein 01/11/22 01/11/22 01/12/22 19:41 20:26 00:24 WBC Hgb Hct MCH MCHC RDW Lymph % (Auto) Lymph # (Auto) Seg Neutrophils % Seg Neutrophils # PT INR APTT ABG pH ABG pO2 218.2 H ABG HCO3 18.5 L ABG O2 Saturation 99.3 H ABG Base Excess -5.0 L ABG Hemoglobin Oxyhemoglobin Sodium Potassium Chloride Carbon Dioxide BUN Creatinine Glucose POC Glucose 155 H Lactic Acid Calcium Phosphorus 1.70 L Magnesium 4.80 H Total Bilirubin Direct Bilirubin AST ALT Total Creatine Kinase Troponin T C-Reactive Protein Total Protein Albumin HDL Cholesterol Urine Blood Urine WBC (Auto) Urine Creatinine Urine Total Protein 01/12/22 01/12/22 01/12/22 05:10 05:10 05:10 WBC Hgb Hct MCH MCHC RDW Lymph % (Auto) Lymph # (Auto) Seg Neutrophils % Seg Neutrophils # PT 36.1 H INR 3.09 H APTT ABG pH ABG pO2 ABG HCO3 ABG O2 Saturation ABG Base Excess ABG Hemoglobin Oxyhemoglobin Sodium Potassium Chloride Carbon Dioxide BUN Creatinine Glucose POC Glucose Lactic Acid 3.80 H* Calcium Phosphorus Magnesium Total Bilirubin Direct Bilirubin AST ALT Total Creatine Kinase Troponin T C-Reactive Protein 13.20 H Total Protein Albumin HDL Cholesterol Urine Blood Urine WBC (Auto) Urine Creatinine Urine Total Protein 01/12/22 01/12/22 01/12/22 05:20 08:57 09:30 WBC Hgb Hct MCH MCHC RDW Lymph % (Auto) Lymph # (Auto) Seg Neutrophils % Seg Neutrophils # PT INR APTT ABG pH ABG pO2 194.1 H ABG HCO3 ABG O2 Saturation 99.2 H ABG Base Excess ABG Hemoglobin 12.7 L Oxyhemoglobin Sodium Potassium Chloride Carbon Dioxide 21 L BUN 42 H Creatinine 3.3 H Glucose 178 H POC Glucose Lactic Acid 3.60 H* Calcium Phosphorus Magnesium Total Bilirubin Direct Bilirubin AST 73 H ALT 79 H Total Creatine Kinase Troponin T C-Reactive Protein Total Protein 6.2 L Albumin 3.3 L HDL Cholesterol Urine Blood Urine WBC (Auto) Urine Creatinine Urine Total Protein 01/12/22 01/12/22 01/12/22 09:38 14:30 15:23 WBC Hgb Hct MCH MCHC RDW 20.0 H Lymph % (Auto) Lymph # (Auto) Seg Neutrophils % Seg Neutrophils # PT INR APTT ABG pH ABG pO2 ABG HCO3 ABG O2 Saturation ABG Base Excess ABG Hemoglobin Oxyhemoglobin Sodium Potassium Chloride Carbon Dioxide BUN Creatinine Glucose POC Glucose Lactic Acid 4.00 H* Calcium Phosphorus Magnesium Total Bilirubin Direct Bilirubin AST ALT Total Creatine Kinase Troponin T C-Reactive Protein Total Protein Albumin HDL Cholesterol Urine Blood Urine WBC (Auto) Urine Creatinine 220.1 H Urine Total Protein 105 H 01/12/22 01/12/22 01/12/22 15:23 16:50 16:51 WBC Hgb Hct MCH MCHC RDW Lymph % (Auto) Lymph # (Auto) Seg Neutrophils % Seg Neutrophils # PT INR APTT ABG pH ABG pO2 ABG HCO3 ABG O2 Saturation ABG Base Excess ABG Hemoglobin Oxyhemoglobin Sodium Potassium Chloride Carbon Dioxide BUN Creatinine Glucose POC Glucose 207 H Lactic Acid Calcium Phosphorus Magnesium Total Bilirubin Direct Bilirubin AST ALT Total Creatine Kinase 202 H Troponin T C-Reactive Protein Total Protein Albumin HDL Cholesterol Urine Blood Large A Urine WBC (Auto) 85.0 H Urine Creatinine Urine Total Protein 01/12/22 01/13/22 01/13/22 16:51 03:09 04:04 WBC Hgb Hct MCH MCHC RDW Lymph % (Auto) Lymph # (Auto) Seg Neutrophils % Seg Neutrophils # PT 46.8 H INR 4.25 H APTT ABG pH ABG pO2 226.5 H ABG HCO3 17.0 L ABG O2 Saturation 99.3 H ABG Base Excess -7.1 L ABG Hemoglobin 13.8 L Oxyhemoglobin Sodium Potassium Chloride Carbon Dioxide BUN Creatinine Glucose POC Glucose Lactic Acid Calcium Phosphorus Magnesium Total Bilirubin Direct Bilirubin AST ALT Total Creatine Kinase Troponin T C-Reactive Protein Total Protein Albumin HDL Cholesterol Urine Blood Urine WBC (Auto) Urine Creatinine 224.3 H Urine Total Protein 105 H 01/13/22 01/13/22 01/13/22 06:31 08:28 08:47 WBC 12.1 H Hgb Hct MCH MCHC RDW 20.1 H Lymph % (Auto) 5.0 L Lymph # (Auto) 0.6 L Seg Neutrophils % 88.2 H Seg Neutrophils # 10.6 H PT INR APTT ABG pH ABG pO2 ABG HCO3 ABG O2 Saturation ABG Base Excess ABG Hemoglobin Oxyhemoglobin Sodium Potassium Chloride Carbon Dioxide 19 L BUN 62 H Creatinine 4.9 H Glucose 128 H POC Glucose 130 H Lactic Acid Calcium Phosphorus Magnesium Total Bilirubin Direct Bilirubin AST ALT Total Creatine Kinase Troponin T C-Reactive Protein Total Protein Albumin HDL Cholesterol Urine Blood Urine WBC (Auto) Urine Creatinine Urine Total Protein 01/13/22 01/14/22 01/14/22 11:41 04:00 04:00 WBC 11.5 H Hgb 11.7 L Hct MCH 27 L MCHC RDW 19.8 H Lymph % (Auto) Lymph # (Auto) Seg Neutrophils % Seg Neutrophils # PT INR APTT ABG pH ABG pO2 ABG HCO3 ABG O2 Saturation ABG Base Excess ABG Hemoglobin Oxyhemoglobin Sodium Potassium 3.5 L D Chloride Carbon Dioxide 21 L BUN 81 H Creatinine 5.2 H Glucose 133 H POC Glucose 142 H Lactic Acid Calcium 8.1 L Phosphorus Magnesium Total Bilirubin Direct Bilirubin AST ALT Total Creatine Kinase Troponin T C-Reactive Protein Total Protein Albumin HDL Cholesterol Urine Blood Urine WBC (Auto) Urine Creatinine Urine Total Protein 01/14/22 01/14/22 01/14/22 04:20 05:46 11:18 WBC Hgb Hct MCH MCHC RDW Lymph % (Auto) Lymph # (Auto) Seg Neutrophils % Seg Neutrophils # PT INR APTT ABG pH ABG pO2 45.7 L ABG HCO3 ABG O2 Saturation 77.6 L ABG Base Excess -2.2 L ABG Hemoglobin 12.2 L Oxyhemoglobin 75.8 L Sodium Potassium Chloride Carbon Dioxide BUN Creatinine Glucose POC Glucose 117 H 127 H Lactic Acid Calcium Phosphorus Magnesium Total Bilirubin Direct Bilirubin AST ALT Total Creatine Kinase Troponin T C-Reactive Protein Total Protein Albumin HDL Cholesterol Urine Blood Urine WBC (Auto) Urine Creatinine Urine Total Protein 01/14/22 01/14/22 01/15/22 13:10 Unknown 04:15 WBC Hgb Hct MCH MCHC RDW Lymph % (Auto) Lymph # (Auto) Seg Neutrophils % Seg Neutrophils # PT 49.5 H INR 4.55 H APTT ABG pH ABG pO2 92.1 H 101.6 H ABG HCO3 ABG O2 Saturation ABG Base Excess -2.1 L ABG Hemoglobin 11.6 L 11.2 L Oxyhemoglobin Sodium Potassium Chloride Carbon Dioxide BUN Creatinine Glucose POC Glucose Lactic Acid Calcium Phosphorus Magnesium Total Bilirubin Direct Bilirubin AST ALT Total Creatine Kinase Troponin T C-Reactive Protein Total Protein Albumin HDL Cholesterol Urine Blood Urine WBC (Auto) Urine Creatinine Urine Total Protein 01/15/22 01/15/22 01/15/22 04:45 04:45 04:45 WBC Hgb 11.4 L Hct 35.3 L MCH 27 L MCHC RDW 19.6 H Lymph % (Auto) Lymph # (Auto) Seg Neutrophils % Seg Neutrophils # PT 33.5 H INR 2.83 H APTT ABG pH ABG pO2 ABG HCO3 ABG O2 Saturation ABG Base Excess ABG Hemoglobin Oxyhemoglobin Sodium Potassium 3.0 L Chloride Carbon Dioxide BUN 80 H Creatinine 4.5 H Glucose 103 H POC Glucose Lactic Acid Calcium 8.0 L Phosphorus Magnesium Total Bilirubin Direct Bilirubin AST ALT Total Creatine Kinase Troponin T C-Reactive Protein Total Protein Albumin HDL Cholesterol Urine Blood Urine WBC (Auto) Urine Creatinine Urine Total Protein 01/16/22 01/16/22 01/16/22 05:10 05:10 05:10 WBC Hgb 10.8 L Hct 33.1 L MCH MCHC RDW 19.3 H Lymph % (Auto) Lymph # (Auto) Seg Neutrophils % Seg Neutrophils # PT 22.9 H INR 1.78 H APTT ABG pH ABG pO2 ABG HCO3 ABG O2 Saturation ABG Base Excess ABG Hemoglobin Oxyhemoglobin Sodium Potassium 3.2 L Chloride 107.6 H Carbon Dioxide BUN 68 H Creatinine 3.4 H Glucose POC Glucose Lactic Acid Calcium 8.0 L Phosphorus Magnesium Total Bilirubin Direct Bilirubin AST ALT Total Creatine Kinase Troponin T C-Reactive Protein Total Protein Albumin HDL Cholesterol Urine Blood Urine WBC (Auto) Urine Creatinine Urine Total Protein 01/16/22 01/17/22 01/17/22 13:18 04:00 05:20 WBC Hgb Hct MCH MCHC RDW Lymph % (Auto) Lymph # (Auto) Seg Neutrophils % Seg Neutrophils # PT 17.5 H INR 1.28 H APTT ABG pH ABG pO2 ABG HCO3 ABG O2 Saturation ABG Base Excess ABG Hemoglobin Oxyhemoglobin Sodium Potassium 3.5 L Chloride Carbon Dioxide BUN 55 H Creatinine 2.6 H Glucose POC Glucose 130 H Lactic Acid Calcium Phosphorus Magnesium Total Bilirubin Direct Bilirubin AST 106 H ALT 262 H Total Creatine Kinase Troponin T C-Reactive Protein Total Protein Albumin 3.4 L HDL Cholesterol Urine Blood Urine WBC (Auto) Urine Creatinine Urine Total Protein 01/17/22 01/17/22 01/17/22 05:20 11:58 16:55 WBC Hgb 11.4 L Hct MCH 27 L MCHC 31 L RDW 19.1 H Lymph % (Auto) Lymph # (Auto) Seg Neutrophils % Seg Neutrophils # PT INR APTT ABG pH ABG pO2 ABG HCO3 ABG O2 Saturation ABG Base Excess ABG Hemoglobin Oxyhemoglobin Sodium Potassium Chloride Carbon Dioxide BUN Creatinine Glucose POC Glucose 109 H 133 H Lactic Acid Calcium Phosphorus Magnesium Total Bilirubin Direct Bilirubin AST ALT Total Creatine Kinase Troponin T C-Reactive Protein Total Protein Albumin HDL Cholesterol Urine Blood Urine WBC (Auto) Urine Creatinine Urine Total Protein 01/18/22 01/18/22 01/18/22 09:15 09:15 09:15 WBC Hgb Hct MCH MCHC RDW Lymph % (Auto) Lymph # (Auto) Seg Neutrophils % Seg Neutrophils # PT 18.2 H INR 1.34 H APTT ABG pH ABG pO2 ABG HCO3 ABG O2 Saturation ABG Base Excess ABG Hemoglobin Oxyhemoglobin Sodium Potassium Chloride Carbon Dioxide BUN 47 H Creatinine 2.2 H Glucose 140 H POC Glucose Lactic Acid Calcium Phosphorus Magnesium Total Bilirubin Direct Bilirubin 0.4 H AST 60 H ALT 212 H Total Creatine Kinase Troponin T C-Reactive Protein Total Protein Albumin 3.3 L HDL Cholesterol Urine Blood Urine WBC (Auto) Urine Creatinine Urine Total Protein 01/19/22 01/19/22 01/19/22 03:59 03:59 11:19 WBC Hgb Hct MCH MCHC RDW Lymph % (Auto) Lymph # (Auto) Seg Neutrophils % Seg Neutrophils # PT 19.4 H INR 1.45 H APTT ABG pH ABG pO2 ABG HCO3 ABG O2 Saturation ABG Base Excess ABG Hemoglobin Oxyhemoglobin Sodium Potassium Chloride Carbon Dioxide BUN 47 H Creatinine 2.1 H Glucose 106 H POC Glucose 120 H Lactic Acid Calcium Phosphorus Magnesium Total Bilirubin Direct Bilirubin AST ALT Total Creatine Kinase Troponin T C-Reactive Protein Total Protein Albumin HDL Cholesterol Urine Blood Urine WBC (Auto) Urine Creatinine Urine Total Protein 01/19/22 01/19/22 01/20/22 18:18 21:05 04:42 WBC Hgb Hct MCH MCHC RDW Lymph % (Auto) Lymph # (Auto) Seg Neutrophils % Seg Neutrophils # PT INR APTT ABG pH ABG pO2 ABG HCO3 ABG O2 Saturation ABG Base Excess ABG Hemoglobin Oxyhemoglobin Sodium Potassium Chloride Carbon Dioxide 31 H BUN 48 H Creatinine 2.2 H Glucose 101 H POC Glucose 144 H 107 H Lactic Acid Calcium Phosphorus Magnesium Total Bilirubin Direct Bilirubin AST ALT Total Creatine Kinase Troponin T C-Reactive Protein Total Protein Albumin HDL Cholesterol Urine Blood Urine WBC (Auto) Urine Creatinine Urine Total Protein 01/20/22 01/20/22 01/20/22 04:42 12:01 20:19 WBC Hgb Hct MCH MCHC RDW Lymph % (Auto) Lymph # (Auto) Seg Neutrophils % Seg Neutrophils # PT 20.6 H INR 1.56 H APTT ABG pH ABG pO2 ABG HCO3 ABG O2 Saturation ABG Base Excess ABG Hemoglobin Oxyhemoglobin Sodium Potassium Chloride Carbon Dioxide BUN Creatinine Glucose POC Glucose 116 H 131 H Lactic Acid Calcium Phosphorus Magnesium Total Bilirubin Direct Bilirubin AST ALT Total Creatine Kinase Troponin T C-Reactive Protein Total Protein Albumin HDL Cholesterol Urine Blood Urine WBC (Auto) Urine Creatinine Urine Total Protein 01/21/22 01/21/22 01/21/22 05:05 05:05 11:12 WBC Hgb Hct MCH MCHC RDW Lymph % (Auto) Lymph # (Auto) Seg Neutrophils % Seg Neutrophils # PT 20.8 H INR 1.58 H APTT ABG pH ABG pO2 ABG HCO3 ABG O2 Saturation ABG Base Excess ABG Hemoglobin Oxyhemoglobin Sodium 146 H Potassium Chloride Carbon Dioxide BUN 49 H Creatinine 2.1 H Glucose POC Glucose 142 H Lactic Acid Calcium Phosphorus Magnesium Total Bilirubin Direct Bilirubin AST ALT Total Creatine Kinase Troponin T C-Reactive Protein Total Protein Albumin HDL Cholesterol Urine Blood Urine WBC (Auto) Urine Creatinine Urine Total Protein Allied health notes reviewed: nursing
[2022-01-21] MEDS ORDERED: WARFARIN 2 MG TAB PO NR (17:00)
[2022-01-21] MEDS ORDERED: FUROSEMIDE 40 MG TAB PO SCH (18:00)
[2022-01-21] MEDS ORDERED: SODIUM BICARBONATE 650 MG TAB PO SCH (22:00)
== END 2022-01-21 14:30 | disposition home health service (06) | DRG 207 ==
LOC: ED 21:23 → CC1 23:50 → 4A 01-19 23:50
PROVIDERS: ADMIT Internal Medicine Geriatric Medicine; ATTEND Internal Medicine
PROC: 5A1955Z Respiratory Ventilation, Greater than 96 Consecutive Hours (ICD-10-PCS; principal; 2022-01-11)
PROC: 0BH17EZ Insertion of Endotracheal Airway into Trachea, Via Natural or Artificial Opening (ICD-10-PCS; 2022-01-11)
PROC: 06HM33Z Insertion of Infusion Device into Right Femoral Vein, Percutaneous Approach (ICD-10-PCS; 2022-01-11)
PROC: B54BZZA Ultrasonography of Right Lower Extremity Veins, Guidance (ICD-10-PCS; 2022-01-11)
PROC: 04HK33Z Insertion of Infusion Device into Right Femoral Artery, Percutaneous Approach (ICD-10-PCS; 2022-01-11)
PROC: B44FZZZ Ultrasonography of Right Lower Extremity Arteries (ICD-10-PCS; 2022-01-11)
PROC: 5A09357 Assistance with Respiratory Ventilation, Less than 24 Consecutive Hours, Continuous Positive Airway Pressure (ICD-10-PCS; 2022-01-11)
PROC: 4A033R1 Measurement of Arterial Saturation, Peripheral, Percutaneous Approach (ICD-10-PCS; 2022-01-11)
PROC: 06HM33Z Insertion of Infusion Device into Right Femoral Vein, Percutaneous Approach (ICD-10-PCS; 2022-01-14)
PROC: 5A09557 Assistance with Respiratory Ventilation, Greater than 96 Consecutive Hours, Continuous Positive Airway Pressure (ICD-10-PCS; 2022-01-15)
DX: J96.01 Acute respiratory failure with hypoxia (principal); I50.23 Acute on chronic systolic (congestive) heart failure; J81.0 Acute pulmonary edema; N17.0 Acute kidney failure with tubular necrosis; I47.2 Ventricular tachycardia; Z20.822 Contact with and (suspected) exposure to COVID-19; I25.10 Atherosclerotic heart disease of native coronary artery without angina pectoris; I11.0 Hypertensive heart disease with heart failure; E78.5 Hyperlipidemia, unspecified; I25.5 Ischemic cardiomyopathy; E87.6 Hypokalemia; Z80.42 Family history of malignant neoplasm of prostate; Z86.73 Personal history of transient ischemic attack (TIA), and cerebral infarction without residual deficits; I25.2 Old myocardial infarction; Z88.8 Allergy status to other drugs, medicaments and biological substances; Z95.810 Presence of automatic (implantable) cardiac defibrillator
CPT/HCPCS: 36415; 36600; 71045; 74018; 76770; 80048; 80053; 80061; 80074; 80076; 81001; 82140; 82550; 82570; 82803; 82962; 83735; 84100; 84145; 84156; 84478; 84484; 85025; 85027; 85610; 85730; 86140; 86850; 86900; 86901; 87040; 87070; 87086; 87205; 93005; 93306; 94002; 94003; 94660; 94760; G0378; J2354; J3490; J7060; Q9967; C8929; J0282; J0330; J0456; J0696; J1250; J1644; J1650; J1815; J1940; J2060; J2405; J2704; J3010; J3475; J3480; J7040; U0003

== ENCOUNTER 2022-03-12 09:16 | Inpatient (IN) | payer MEDICARE ==
[2022-03-12] MEDS ORDERED: NITROGLYCERIN 0.4 MG TAB SUBL SL ONE (09:36)
[2022-03-12] MEDS ORDERED: IPRATROPIUM 0.02% NEBU 2.5 ML IH ONE (09:37)
[2022-03-12] MEDS ORDERED: FUROSEMIDE 40 MG/4 ML INJ IV ONE (09:37)
[2022-03-12] MEDS ORDERED: ALBUTEROL 2.5 MG/3 ML NEBU IH ONE (09:37)
--- NOTE | 2022-03-12 10:17 | XRay Report ---
CHEST 1 VIEW 03/12/2022 9:56 AM INDICATION / CLINICAL INFORMATION: Chest Pain. COMPARISON: 01/17/2022 FINDINGS: SUPPORT DEVICES: Left chest wall cardiac device and leads in place. HEART / MEDIASTINUM: Stable cardiomegaly. LUNGS / PLEURA: Pulmonary vascular congestion with interstitial prominence. Suspected small bilateral pleural effusions. No pneumothorax. ADDITIONAL FINDINGS: No significant additional findings. IMPRESSION: 1. Cardiomegaly and mild pulmonary edema. Suspected small bilateral pleural effusions. Signer Name: Piyush Thomas MD Signed: 03/12/2022 10:12 AM Workstation Name: [id number]
[2022-03-12 10:25] LABS: ABG Base Excess -1.5 mmol/L (-2.0-3.0); ABG HCO3 23.2 mmol/L (20.0-26.0); ABG Methemoglobin 0.5 % (0.0-1.5); ABG Oxygen Saturation 97.1 % (95.0-99.0); ABG PCO2 38.8 mm Hg; ABG PH 7.394 pH Units (7.350-7.450); ABG PO2 90.9 mm Hg (80.0-90.0)
[2022-03-12 10:51] LABS: Basophils % (Auto) 0.6 % (0.0-1.8); Eosinophils % (Auto) 0.2 % (0.0-4.3); Hematocrit 34.4 % (35.5-45.6); Lymphocytes # (Auto) 0.5 K/mm3 (1.2-5.4); Lymphocytes % (Auto) 7.6 % (13.4-35.0); Mean Corpuscular HGB Conc 32 % (32-34); Mean Corpuscular Volume 86 fl (84-94); Monocytes # (Auto) 0.4 K/mm3 (0.0-0.8); Monocytes % (Auto) 6.4 % (0.0-7.3); Platelet Count 226 K/mm3 (140-440); Red Blood Count 4.01 M/mm3 (3.65-5.03); Red Cell Distribution Width 19.1 % (13.2-15.2)
[2022-03-12 11:12] LABS: Creatine Kinase MB 3.7 ng/mL (0.0-4.0)
[2022-03-12 11:17] LABS: INR 4.55 (0.87-1.13)
[2022-03-12 11:23] LABS: Albumin 4.1 g/dL (3.9-5)
[2022-03-12 11:27] LABS: Chol/HDL Ratio 3.74 %
--- NOTE | 2022-03-12 12:49 | Emergency Department Report ---
ED General Adult HPI - General Chief complaint: Chest Pain Stated complaint: CHEST PAIN PUI?: No Time Seen by Provider: 03/12/22 09:32 Source: patient, EMS Mode of arrival: Stretcher Limitations: Physical Limitation - History of Present Illness Initial comments: pt here with chest pain, received 324 asa and a total of 7mg morphine [employer]IAN pt has CHF with pacemaker and EF 15% , noticed oncreased SOB and swellling and LE edema -: Gradual, days(s) Location: chest Radiation: non-radiation Consistency: constant Associated Symptoms: shortness of breath, weakness. denies: denies other symptoms, confusion, chest pain - Related Data Home Medications Medication Instructions Recorded Confirmed Last Taken amLODIPine 10 mg PO DAILY 09/23/18 01/14/22 09/22/18 cloNIDine-TTS PATCH [Catapres-Tts 1 patch TD Q7D 09/23/18 01/14/22 09/21/18 0.1MG Patch] hydrALAZINE [Apresoline TAB] 50 mg PO TID 09/23/18 01/14/22 09/22/18 metFORMIN [Glucophage] 500 mg PO BID 09/23/18 01/14/22 Unknown Potassium Chloride [K-Dur] 10 meq PO QDAY 03/28/19 01/14/22 Unknown Fluticasone [Flonase] 1 spray NS QHS 01/20/22 01/20/22 Unknown Warfarin [Coumadin] 5 mg PO 3XW 01/20/22 01/20/22 Unknown allopurinoL [Zyloprim] 300 mg PO QDAY 01/20/22 01/20/22 Unknown Previous Rx's Medication Instructions Recorded Last Taken Type carvediloL [Coreg] 25 mg PO BID #60 tablet 08/20/13 09/22/18 Rx Furosemide [Lasix] 40 mg PO DAILY #30 tablet 09/17/13 01/15/17 08:00 Rx AtorvaSTATin [Lipitor] 80 mg PO QHS #30 tablet 01/19/17 Unknown Rx Warfarin [Coumadin] 7.5 mg PO DAILY@1700 tablet 03/30/19 Unknown Rx Amiodarone [Cordarone 200 MG TAB] 200 mg PO DAILY 30 Days #30 tablet 01/21/22 Unknown Rx Enoxaparin 100 mg SUB-Q Q24H 30 Days #1 box 01/21/22 Unknown Rx Furosemide [Lasix TAB] 40 mg PO 0600,1800 30 Days #60 01/21/22 Unknown Rx tablet ISOSORBIDE MONOnitrate [Imdur ER] 30 mg PO QDAY 30 Days #30 tablet 01/21/22 Unknown Rx Spironolactone [Aldactone] 25 mg PO QDAY 30 Days #30 tablet 01/21/22 Unknown Rx Warfarin [Coumadin] 2.5 mg PO QDAY 30 Days #30 tab 01/21/22 Unknown Rx carvediloL [Coreg] 25 mg PO BID 30 Days #60 tablet 01/21/22 Unknown Rx hydrALAZINE [Apresoline TAB] 25 mg PO BID 30 Days #60 tablet 01/21/22 Unknown Rx Allergies Allergy/AdvReac Type Severity Reaction Status Date / Time aspirin AdvReac Unknown Verified 03/12/22 09:25 ED Review of Systems ROS: Stated complaint: CHEST PAIN Other details as noted in HPI Constitutional: denies: chills, fever Eyes: denies: eye pain, eye discharge, vision change ENT: denies: ear pain, throat pain Respiratory: denies: cough, shortness of breath, wheezing Cardiovascular: denies: chest pain, palpitations Endocrine: no symptoms reported Gastrointestinal: denies: abdominal pain, nausea, diarrhea Genitourinary: denies: urgency, dysuria Musculoskeletal: denies: back pain, joint swelling, arthralgia Skin: denies: rash, lesions Neurological: denies: headache, weakness, paresthesias Psychiatric: denies: anxiety, depression Hematological/Lymphatic: denies: easy bleeding, easy bruising ED Past Medical Hx - Past Medical History Previous Medical History?: Yes Hx Hypertension: Yes Hx Heart Attack/AMI: Yes Hx Congestive Heart Failure: Yes Hx Diabetes: Yes Hx Renal Disease: Yes (Stage 2) Hx of Cancer: Yes (prostate) Additional medical history: gout neuorpathy edema, AAA ~3 cm early 2019 - Surgical History Hx Open Heart Surgery: Yes (Artificial heart valve placement) Hx Pacemaker: Yes Hx Internal Defibrillator: Yes Additional Surgical History: AICD - Social History Smoking Status: Never Smoker - Medications Home Medications: Home Medications Medication Instructions Recorded Confirmed Last Taken Type carvediloL [Coreg] 25 mg PO BID #60 tablet 08/20/13 01/14/22 09/22/18 Rx Furosemide [Lasix] 40 mg PO DAILY #30 tablet 09/17/13 01/14/22 01/15/17 08:00 Rx AtorvaSTATin [Lipitor] 80 mg PO QHS #30 tablet 01/19/17 01/14/22 Unknown Rx amLODIPine 10 mg PO DAILY 09/23/18 01/14/22 09/22/18 History cloNIDine-TTS PATCH [Catapres-Tts 1 patch TD Q7D 09/23/18 01/14/22 09/21/18 History 0.1MG Patch] hydrALAZINE [Apresoline TAB] 50 mg PO TID 09/23/18 01/14/22 09/22/18 History metFORMIN [Glucophage] 500 mg PO BID 09/23/18 01/14/22 Unknown History Potassium Chloride [K-Dur] 10 meq PO QDAY 03/28/19 01/14/22 Unknown History Warfarin [Coumadin] 7.5 mg PO DAILY@1700 tablet 03/30/19 01/14/22 Unknown Rx Fluticasone [Flonase] 1 spray NS QHS 01/20/22 01/20/22 Unknown History Warfarin [Coumadin] 5 mg PO 3XW 01/20/22 01/20/22 Unknown History allopurinoL [Zyloprim] 300 mg PO QDAY 01/20/22 01/20/22 Unknown History Amiodarone [Cordarone 200 MG TAB] 200 mg PO DAILY 30 Days #30 tablet 01/21/22 Unknown Rx Enoxaparin 100 mg SUB-Q Q24H 30 Days #1 box 01/21/22 Unknown Rx Furosemide [Lasix TAB] 40 mg PO 0600,1800 30 Days #60 01/21/22 Unknown Rx tablet ISOSORBIDE MONOnitrate [Imdur ER] 30 mg PO QDAY 30 Days #30 tablet 01/21/22 Unknown Rx Spironolactone [Aldactone] 25 mg PO QDAY 30 Days #30 tablet 01/21/22 Unknown Rx Warfarin [Coumadin] 2.5 mg PO QDAY 30 Days #30 tab 01/21/22 Unknown Rx carvediloL [Coreg] 25 mg PO BID 30 Days #60 tablet 01/21/22 Unknown Rx hydrALAZINE [Apresoline TAB] 25 mg PO BID 30 Days #60 tablet 01/21/22 Unknown Rx ED Physical Exam - General Limitations: Physical Limitation General appearance: alert, in distress - Head Head exam: Present: atraumatic, normocephalic - Eye Eye exam: Present: normal appearance - ENT ENT exam: Present: mucous membranes moist - Neck Neck exam: Present: normal inspection - Respiratory Respiratory exam: Present: rales, accessory muscle use, decreased breath sounds. Absent: respiratory distress - Cardiovascular Cardiovascular Exam: Present: normal rhythm, tachycardia. Absent: systolic murmur, diastolic murmur, rubs, gallop - GI/Abdominal GI/Abdominal exam: Present: soft, normal bowel sounds - Rectal Rectal exam: Present: deferred - External exam: Present: swelling - Extremities Exam Extremities exam: Present: normal inspection, pedal edema - Neurological Exam Neurological exam: Present: alert, oriented X3 - Psychiatric Psychiatric exam: Present: normal affect, normal mood - Skin Skin exam: Present: warm, dry, intact, normal color. Absent: rash ED Course Vital Signs 03/12/22 03/12/22 03/12/22 09:22 09:36 09:45 Pulse Rate 84 81 81 Pulse Rate [ Bilateral Throughout] Respiratory 16 27 H 38 H Rate Respiratory Rate [Bilateral Throughout] Blood Pressure 138/79 Blood Pressure 141/104 [Left] O2 Sat by Pulse 98 98 96 Oximetry 03/12/22 03/12/22 03/12/22 09:50 10:01 10:10 Pulse Rate 82 79 72 Pulse Rate [ 84 Bilateral Throughout] Respiratory 24 29 H Rate Respiratory 22 Rate [Bilateral Throughout] Blood Pressure 138/79 135/86 126/83 Blood Pressure [Left] O2 Sat by Pulse 97 98 Oximetry 03/12/22 03/12/22 03/12/22 10:15 10:31 10:45 Pulse Rate 73 61 59 L Pulse Rate [ Bilateral Throughout] Respiratory 27 H 21 22 Rate Respiratory Rate [Bilateral Throughout] Blood Pressure 126/83 118/67 110/58 Blood Pressure [Left] O2 Sat by Pulse 100 99 99 Oximetry ED Medical Decision Making - Lab Data Result diagrams: 03/12/22 10:12 03/12/22 10:12 - EKG Data -: EKG Interpreted by Me - EKG Data Interpretation: other (atrial paced rythm ) - Radiology Data Radiology results: report reviewed, image reviewed - Medical Decision Making work up showed pulmonary edema , and effusion , lasix rt and started on bipap Critical care attestation.: If time is entered above; I have spent that time in minutes in the direct care of this critically ill patient, excluding procedure time. ED Disposition Clinical Impression: CKD (chronic kidney disease) stage 3, GFR 30-59 ml/min, CHF exacerbation, Respiratory failure, SOB (shortness of breath), Acute on chronic HFrEF (heart failure with reduced ejection fraction) Disposition: ADMITTED INPATIENT Is pt being admited?: Yes Does the pt Need Aspirin: No Condition: Fair Referrals: PRIMARY CARE, [Primary Care Provider] - 3-5 Days
[2022-03-12] MEDS ORDERED: ACETAMINOPHEN 325 MG TAB PO PRN (13:04)
[2022-03-12] MEDS ORDERED: ALBUTEROL 2.5 MG/3 ML NEBU IH PRN (13:04)
[2022-03-12] MEDS ORDERED: oxyCODONE /ACETAMINOPHEN 5-325MG TAB PO PRN (13:04)
[2022-03-12] MEDS ORDERED: ONDANSETRON 4 MG/2 ML INJ IV PRN (13:04)
--- NOTE | 2022-03-12 13:11 | History and Physical Report ---
History of Present Illness Chief complaint: My chest feels tight and I cannot breathe History of present illness: 56 YO Male with HTN, HLD, [place], Systolic CHF(EF 15%), DM, Metabolic Syndrome, Cardiomyopathy S/P AICD Placement, CVA, CaP, Valve Replacement on therapeutic anticoagulation. presents to ED for evaluation. Patient states "my chest feels tight and I cannot breathe". Patient states that over the past 1 week he has experienced shortness of breath, chest pressure, dyspnea on exertion, dyspnea at rest, decreased exercise tolerance, orthopnea, paroxysmal nocturnal dyspnea, lower extremity edema, and 10 pound unintentional weight gain. Patient symptoms have worsened in spite of increased diuretic therapy. Patient subsequently failed outpatient therapy. Patient acknowledges compliance with medication. EMS was notified and upon arrival the patient was found to be in distress and subsequent transported to [facility] for further care and evaluation of the aforementioned symptoms. The patient was seen and evaluated in the emergency department. All lab and imaging studies reviewed. Patient found to have a pulse oximetry of 87% on room air which is consistent with acute hypoxemic respiratory failure. Patient also found to have clinical symptoms consistent with CHF decompensation, cardiorenal syndrome, metabolic acidosis. Patient found to be using accessory muscles to breathe. Patient placed on supplemental oxygen and treated with IV diuretic therapy without improvement in symptoms. Patient subsequently placed on noninvasive positive pressure ventilation. Patient admitted to telemetry due to increased risk of worsening symptoms and for medical stabilization. Patient initiated on CHF protocol. Cardiology team consulted in ED. Patient denies fever, chills, chest pain, palpitation, adduct andreas cough, skin rash, recent contact, or known exposure to COVID-19. Prior admission on 01/10/2022 reviewed. All medication listed at time of admission has been reconciled. Advanced care planning conducted in ED. Past History Past Medical History: acute MN, cancer, diabetes, heart failure, hypertension, stroke Past Surgical History: valve replacement, Other (AICD placement) Social history: , lives with family Family history: diabetes, hypertension Medications and Allergies Allergies Allergy/AdvReac Type Severity Reaction Status Date / Time aspirin AdvReac Unknown Verified 03/12/22 09:25 Home Medications Medication Instructions Recorded Confirmed Last Taken Type carvediloL [Coreg] 25 mg PO BID #60 tablet 08/20/13 01/14/22 09/22/18 Rx Furosemide [Lasix] 40 mg PO DAILY #30 tablet 09/17/13 01/14/22 01/15/17 08:00 Rx AtorvaSTATin [Lipitor] 80 mg PO QHS #30 tablet 01/19/17 01/14/22 Unknown Rx amLODIPine 10 mg PO DAILY 09/23/18 01/14/22 09/22/18 History cloNIDine-TTS PATCH [Catapres-Tts 1 patch TD Q7D 09/23/18 01/14/22 09/21/18 History 0.1MG Patch] hydrALAZINE [Apresoline TAB] 50 mg PO TID 09/23/18 01/14/22 09/22/18 History metFORMIN [Glucophage] 500 mg PO BID 09/23/18 01/14/22 Unknown History Potassium Chloride [K-Dur] 10 meq PO QDAY 03/28/19 01/14/22 Unknown History Warfarin [Coumadin] 7.5 mg PO DAILY@1700 tablet 03/30/19 01/14/22 Unknown Rx Fluticasone [Flonase] 1 spray NS QHS 01/20/22 01/20/22 Unknown History Warfarin [Coumadin] 5 mg PO 3XW 01/20/22 01/20/22 Unknown History allopurinoL [Zyloprim] 300 mg PO QDAY 01/20/22 01/20/22 Unknown History Amiodarone [Cordarone 200 MG TAB] 200 mg PO DAILY 30 Days #30 tablet 01/21/22 Unknown Rx Enoxaparin 100 mg SUB-Q Q24H 30 Days #1 box 01/21/22 Unknown Rx Furosemide [Lasix TAB] 40 mg PO 0600,1800 30 Days #60 01/21/22 Unknown Rx tablet ISOSORBIDE MONOnitrate [Imdur ER] 30 mg PO QDAY 30 Days #30 tablet 01/21/22 Unknown Rx Spironolactone [Aldactone] 25 mg PO QDAY 30 Days #30 tablet 01/21/22 Unknown Rx Warfarin [Coumadin] 2.5 mg PO QDAY 30 Days #30 tab 01/21/22 Unknown Rx carvediloL [Coreg] 25 mg PO BID 30 Days #60 tablet 01/21/22 Unknown Rx hydrALAZINE [Apresoline TAB] 25 mg PO BID 30 Days #60 tablet 01/21/22 Unknown Rx Active Meds: Active Medications Acetaminophen (Acetaminophen 325 Mg Tab) 650 mg PO Q4H PRN PRN Reason: Pain MILD(1-3)/Fever >100.5/NÚÑEZ Albuterol (Albuterol 2.5 Mg/3 Ml Nebu) 2.5 mg IH Q4HRT PRN PRN Reason: Shortness Of Breath Allopurinol (Allopurinol 300 Mg Tab) 300 mg PO QDAY [facility] Amiodarone HCl (Amiodarone 200 Mg Tab) 200 mg PO DAILY [facility] Amlodipine Besylate (Amlodipine 5 Mg Tab) 10 mg PO DAILY [facility] Atorvastatin Calcium (Atorvastatin 40 Mg Tab) 80 mg PO QHS [facility] Carvedilol (Carvedilol 25 Mg Tab) 25 mg PO BID [facility] Clonidine HCl (Clonidine Tts 0.1 Mg/24 Hr Patch) 0.1 mg TD Q7D [facility] Furosemide (Furosemide 40 Mg/4 Ml Inj) 40 mg IV BID@0600,1800 [facility] Morphine Sulfate (Morphine 4 Mg/1 Ml Inj) 2 mg IV Q8H PRN PRN Reason: Pain , Severe (7-10) Ondansetron HCl (Ondansetron 4 Mg/2 Ml Inj) 4 mg IV Q8H PRN PRN Reason: Nausea And Vomiting Oxycodone/Acetaminophen (Oxycodone /Acetaminophen 5-325mg Tab) 1 tab PO Q6H PRN PRN Reason: Pain, Moderate (4-6) Sodium Chloride (Sodium Chloride 0.9% 10 Ml Flush Syringe) 10 ml IV BID [facility] Sodium Chloride (Sodium Chloride 0.9% 10 Ml Flush Syringe) 10 ml IV PRN PRN PRN Reason: LINE FLUSH Review of Systems Constitutional: weight gain, no weight loss, no fever, no chills Ears, nose, mouth and throat: no ear pain, no ear discharge, no tinnitis, no nasal congestion, no nasal discharge Cardiovascular: orthopnea, edema, shortness of breath, dyspnea on exertion, par oxysmal nocturnal dyspnea, high blood pressure, leg edema, decreased exercise tolerance, no chest pain Respiratory: no cough, no cough with sputum, no excessive sputum Gastrointestinal: no abdominal pain, no nausea, no vomiting, no constipation Genitourinary Male: no hematuria, no flank pain, no discharge, no urinary freque ncy, no urinary hesitancy Rectal: no pain, no incontinence, no bleeding Musculoskeletal: no neck stiffness, no neck pain, no shooting arm pain, no arm numbness/tingling Integumentary: no rash, no pruritis, no redness, no sores, no wounds Neurological: no head injury, no parathesias, no numbness, no tingling Psychiatric: no anxiety, no sleep disturbances, no insomnia, no change in libido, no suicidal ideation Endocrine: no cold intolerance, no polyphagia, no polyuria, no nocturia, no flushing Hematologic/Lymphatic: no easy bruising, no easy bleeding Allergic/Immunologic: no urticaria, no allergic rhinitis, no wheezing Exam - Constitutional Vitals: Temp Pulse Resp BP Pulse Ox 70 40 H 116/71 100 03/12/22 12:45 03/12/22 12:45 03/12/22 12:45 03/12/22 12:45 General appearance: Present: mild distress - EENT Eyes: Present: PERRL ENT: hearing intact, clear oral mucosa - Neck Neck: Present: supple, normal ROM, masses or JVD - Respiratory Respiratory effort: labored, accessory muscle use Respiratory: bilateral: diminished, rales - Extremities Extremities: no ischemia Extremity abnormal: edema Peripheral Pulses: within normal limits - Abdominal General gastrointestinal: Present: soft, non-tender, non-distended, normal bowel sounds Male genitourinary: Present: normal - Integumentary Integumentary: Present: clear, dry - Musculoskeletal Musculoskeletal: generalized weakness - Psychiatric Psychiatric: appropriate mood/affect, intact judgment & insight - Neurologic Neurologic: CNII-XII intact, moves all extremities HEART Score - HEART Score Troponin: Troponin T 0.063 ng/mL (0.00-0.029) H 03/12/22 10:12 Troponin T 0.065 ng/mL (0.00-0.029) H 03/12/22 10:12 Results - Labs CBC & Chem 7: 03/12/22 10:12 03/12/22 10:12 Labs: Abnormal lab results 03/12/22 03/12/22 03/12/22 Range/Units 10:05 10:12 10:12 Hgb 11.0 L (11.8-15.2) gm/dl Hct 34.4 L (35.5-45.6) % MCH 27 L (28-32) pg RDW 19.1 H (13.2-15.2) % Lymph % (Auto) 7.6 L (13.4-35.0) % Lymph # (Auto) 0.5 L (1.2-5.4) K/mm3 Seg Neutrophils % 85.2 H (40.0-70.0) % PT 49.5 H (12.2-14.9) Sec. INR 4.55 H (0.87-1.13) ABG pO2 90.9 H (80.0-90.0) mm Hg ABG Hemoglobin 11.1 L (14.0-18.0) gm/dl Oxyhemoglobin 94.7 L (95.0-99.0) % Carbon Dioxide (22-30) mmol/L BUN (9-20) mg/dL Creatinine (0.8-1.3) mg/dL Glucose (75-100) mg/dL Total Bilirubin (0.1-1.2) mg/dL Troponin T (0.00-0.029) ng/mL NT-Pro-B Natriuret Pep (0-900) pg/mL HDL Cholesterol (40-59) mg/dL 03/12/22 03/12/22 Range/Units 10:12 10:12 Hgb (11.8-15.2) gm/dl Hct (35.5-45.6) % MCH (28-32) pg RDW (13.2-15.2) % Lymph % (Auto) (13.4-35.0) % Lymph # (Auto) (1.2-5.4) K/mm3 Seg Neutrophils % (40.0-70.0) % PT (12.2-14.9) Sec. INR (0.87-1.13) ABG pO2 (80.0-90.0) mm Hg ABG Hemoglobin (14.0-18.0) gm/dl Oxyhemoglobin (95.0-99.0) % Carbon Dioxide 20 L (22-30) mmol/L BUN 40 H (9-20) mg/dL Creatinine 2.3 H (0.8-1.3) mg/dL Glucose 142 H (75-100) mg/dL Total Bilirubin 1.90 H (0.1-1.2) mg/dL Troponin T 0.065 H 0.063 H (0.00-0.029) ng/mL NT-Pro-B Natriuret Pep 85279 H (0-900) pg/mL HDL Cholesterol 31 L (40-59) mg/dL Assessment and Plan - Patient Problems (1) Acute on chronic HFrEF (heart failure with reduced ejection fraction) Current Visit: Yes Status: Acute Plan to address problem: CHF protocol: Strict I's and O, monitor urine output every shift, daily weight, afterload reduction, blood pressure control, diuresis, cardiology team consulted. Echocardiogram ordered and pending at time of admission, supplemental oxygen. (2) Acute respiratory failure with hypoxemia Current Visit: No Status: Acute Plan to address problem: Chest x-ray, supplemental oxygen, pulse oximetry, nebulizer therapy, patient failed supplemental oxygen therapy. Patient initiated on noninvasive positive pressure ventilation. Arterial blood gas. Supportive care (3) Cardiorenal syndrome with renal failure Current Visit: Yes Status: Acute Plan to address problem: Nephrology team consulted in ED, continue medical management. Monitor fluid balance. (4) Metabolic acidosis Current Visit: Yes Status: Acute Plan to address problem: Supportive care, BMP, repeat BMP in a.m., treat CHF. (5) Valvular heart disease Current Visit: Yes Status: Acute Plan to address problem: Cardiology team consulted, continue therapeutic anticoagulation, supportive care. (6) DVT prophylaxis Current Visit: No Status: Acute Plan to address problem: SCD to bilateral extremities while in bed, continue therapeutic anticoagulation. (7) Advance care planning Current Visit: Yes Status: Acute Plan to address problem: Disease education data, care plan discussed, diagnoses discussed, prognosis discussed, patient is full code. Patient acknowledges understanding and agreement with care plan, +30 minutes. (8) Preventative health care Current Visit: Yes Status: Acute Plan to address problem: Patient counseled regarding risk factor reduction, medication compliance, compliance with low-sodium diet, compliance with fluid restriction, patient counseled regarding outpatient follow-up with primary care physician for all age and risk factor appropriate screening test. +30 minutes.
[2022-03-12 13:25] LABS: Color,Urine Yellow (Yellow)
[2022-03-12 13:26] LABS: Hyaline Casts,Urine 1 /LPF; Mucus,Urine FEW /HPF; WBC,Urine < 1.0 /HPF (0.0-6.0)
[2022-03-12 13:45] LABS: Amphetamine Screen,Urine Negative; Benzodiazepines Screen,Urine Negative; Cannabinoid Screen,Urine Negative; Cocaine Screen,Urine Negative; Methadone Screen,Urine Negative; Opiate Screen,Urine Negative
[2022-03-12] MEDS ORDERED: cloNIDine TTS 0.1 MG/24 HR PATCH TD SCH (15:00)
[2022-03-12] MEDS ORDERED: WARFARIN 7.5 MG TAB PO SCH (17:00)
[2022-03-12] MEDS: FUROSEMIDE 40 MG/4 ML INJ IV SCH (20:01)
[2022-03-12] MEDS: hydrALAZINE 25 MG TAB PO SCH (21:13)
[2022-03-12] MEDS: carvediloL 25 MG TAB PO SCH (21:15)
[2022-03-13 06:34] LABS: Basophils % (Auto) 0.4 % (0.0-1.8); Eosinophils % (Auto) 0.4 % (0.0-4.3); Hematocrit 34.3 % (35.5-45.6); Hemoglobin 10.9 gm/dl (11.8-15.2); Lymphocytes # (Auto) 0.5 K/mm3 (1.2-5.4); Lymphocytes % (Auto) 8.6 % (13.4-35.0); Mean Corpuscular HGB Conc 32 % (32-34); Mean Corpuscular Volume 86 fl (84-94); Monocytes # (Auto) 0.5 K/mm3 (0.0-0.8); Monocytes % (Auto) 8.4 % (0.0-7.3); Platelet Count 177 K/mm3 (140-440); Red Blood Count 4.01 M/mm3 (3.65-5.03); Red Cell Distribution Width 18.8 % (13.2-15.2)
[2022-03-13 06:43] LABS: INR 4.93 (0.87-1.13)
[2022-03-13] MEDS: FUROSEMIDE 40 MG/4 ML INJ IV SCH ×2 (06:51→18:20)
[2022-03-13 07:13] LABS: Calcium 8.8 mg/dL (8.4-10.2)
--- NOTE | 2022-03-13 08:37 | Progress Note ---
Assessment and Plan Assessment and plan: #Acute on chronic HFrEF (heart failure with reduced ejection fraction) #Status post biventricular ICD ([facility]) -Echocardiogram from 01/2022 hospitalization reviewed, LVEF 10 to 15% -Strict I's and O, monitor urine output every shift, daily weight, afterload reduction, blood pressure control, IV lasix 40mg BID, coreg, aldactone -if patient does not clinically improve, will consult Cardiology #Acute respiratory failure with hypoxemia -CXR shows mild pulmonary edema, small bilateral pleural effusions -at baseline patient has no home O2 requirement -currently on 2LNC, will wean as tolerated -likely secondary to CHF exacerbation -continue pulse oximetry -home O2 evaluation prior to discharge #Acute kidney injury vs CKD -SCr 2.4, same as when the patient was discharged in December -patient had MARCIO secondary to ATN -patient to follow up with Nephrology outpatient and is aware -will consult Nephrology if creatinine worsens -avoid nephrotoxins and renal dose medications #history of atrial fibrillation #supratheraputic INR -continue amiodarone and warfarin -INR 4.9; warfarin management by Pharmacy -goal INR 2-3 #Type II Diabetes Mellitus -diet controlled -will monitor through BMP, glucose controlled at this time -no intervention at this time #Hypertension -continue amlodipine and hydralazine #Coronary artery disease #Hyperlipidemia -continue statin #History of stroke -continue statin and AC #Elevated troponin -chronic, likely related to kidney injury vs CHF #Metabolic acidosis-resolved -likely secondary to kidney disease #Advanced care planning -Disease education data, care plan discussed, diagnoses discussed, prognosis d iscussed, patient is full code. Patient acknowledges understanding and agreement with care plan, +30 minutes. History Interval history: No acute events overnight. Patient reports improvement in symptoms since hospitalization. Since discharge in January patient reports several medication changes including his diuretic being cut in half due to low blood pressures. He reports compliance with fluid and salt restriction, but did eat a fast food meal last Monday. He currently denies chest pain. At baseline he as dyspnea with minimal exertion but has not yet ambulated while in the hospital. Hospitalist Physical - Physical exam Narrative exam: GENERAL: Well-developed well-nourished. In no acute distress. HEENT: NC in place at 2LPM NECK: Supple. CHEST/LUNGS: CTAB on supplemental O2. HEART/CARDIOVASCULAR: RRR. No murmur, rubs or gallops appreciated. ABDOMEN: +BS. NT/ND. SKIN: No rashes noted. NEURO: No focal motor deficit. Follows all commands. MUSCULOSKELETAL: No joint effusion EXTREMITIES: No cyanosis, clubbing. Bilateral lower extremity pitting edema to the gillespie. L leg ulcer clean without drainage. PSYCH: Cooperative. - Constitutional Vitals: Temp Pulse Resp BP Pulse Ox 97.9 F 82 25 H 144/66 100 03/13/22 04:53 03/13/22 04:00 03/13/22 04:00 03/13/22 03:53 03/13/22 04:00 General appearance: Present: mild distress HEART Score - HEART Score Troponin: Troponin T 0.063 ng/mL (0.00-0.029) H 03/12/22 10:12 Troponin T 0.065 ng/mL (0.00-0.029) H 03/12/22 10:12 Results - Labs CBC & Chem 7: 03/13/22 05:52 03/13/22 05:52 Labs: Laboratory Last Values WBC 6.1 K/mm3 (4.5-11.0) 03/13/22 05:52 RBC 4.01 M/mm3 (3.65-5.03) 03/13/22 05:52 Hgb 10.9 gm/dl (11.8-15.2) L 03/13/22 05:52 Hct 34.3 % (35.5-45.6) L 03/13/22 05:52 MCV 86 fl (84-94) 03/13/22 05:52 MCH 27 pg (28-32) L 03/13/22 05:52 MCHC 32 % (32-34) 03/13/22 05:52 RDW 18.8 % (13.2-15.2) H 03/13/22 05:52 Plt Count 177 K/mm3 (140-440) 03/13/22 05:52 Lymph % (Auto) 8.6 % (13.4-35.0) L 03/13/22 05:52 [place] % (Auto) 8.4 % (0.0-7.3) H 03/13/22 05:52 Eos % (Auto) 0.4 % (0.0-4.3) 03/13/22 05:52 Baso % (Auto) 0.4 % (0.0-1.8) 03/13/22 05:52 Lymph # (Auto) 0.5 K/mm3 (1.2-5.4) L 03/13/22 05:52 [place] # (Auto) 0.5 K/mm3 (0.0-0.8) 03/13/22 05:52 Eos # (Auto) 0.0 K/mm3 (0.0-0.4) 03/13/22 05:52 Baso # (Auto) 0.0 K/mm3 (0.0-0.1) 03/13/22 05:52 Seg Neutrophils % 82.2 % (40.0-70.0) H 03/13/22 05:52 Seg Neutrophils # 5.0 K/mm3 (1.8-7.7) 03/13/22 05:52 PT 52.9 Sec. (12.2-14.9) H 03/13/22 05:52 INR 4.93 (0.87-1.13) H 03/13/22 05:52 ABG pH 7.394 pH Units (7.350-7.450) 03/12/22 10:05 ABG pCO2 38.8 mm Hg 03/12/22 10:05 ABG pO2 90.9 mm Hg (80.0-90.0) H 03/12/22 10:05 ABG HCO3 23.2 mmol/L (20.0-26.0) 03/12/22 10:05 ABG O2 Saturation 97.1 % (95.0-99.0) 03/12/22 10:05 ABG O2 Content 14.9 (0.0-44) 03/12/22 10:05 ABG Base Excess -1.5 mmol/L (-2.0-3.0) 03/12/22 10:05 ABG Hemoglobin 11.1 gm/dl (14.0-18.0) L 03/12/22 10:05 ABG Carboxyhemoglobin 2.0 % (0.0-5.0) 03/12/22 10:05 ABG Methemoglobin 0.5 % (0.0-1.5) 03/12/22 10:05 Oxyhemoglobin 94.7 % (95.0-99.0) L 03/12/22 10:05 FiO2 36 % 03/12/22 10:05 Sodium 142 mmol/L (137-145) 03/13/22 05:52 Potassium 4.9 mmol/L (3.6-5.0) 03/13/22 05:52 Chloride 102.9 mmol/L (98-107) 03/13/22 05:52 Carbon Dioxide 23 mmol/L (22-30) 03/13/22 05:52 Anion Gap 21 mmol/L 03/13/22 05:52 BUN 45 mg/dL (9-20) H 03/13/22 05:52 Creatinine 2.4 mg/dL (0.8-1.3) H 03/13/22 05:52 Estimated GFR 34 ml/min 03/13/22 05:52 BUN/Creatinine Ratio 19 % 03/13/22 05:52 Glucose 83 mg/dL (75-100) 03/13/22 05:52 POC Glucose 137 mg/dL (70-105) H 03/12/22 19:59 Calcium 8.8 mg/dL (8.4-10.2) 03/13/22 05:52 Magnesium 1.70 mg/dL (1.7-2.3) 03/12/22 10:12 Total Bilirubin 1.90 mg/dL (0.1-1.2) H 03/12/22 10:12 AST 34 units/L (5-40) 03/12/22 10:12 ALT 36 units/L (7-56) 03/12/22 10:12 Alkaline Phosphatase 60 units/L (35-129) 03/12/22 10:12 Total Creatine Kinase 107 units/L (55-170) 03/12/22 10:12 CK-MB (CK-2) 3.7 ng/mL (0.0-4.0) 03/12/22 10:12 CK-MB (CK-2) Rel Index 3.4 (0-4) 03/12/22 10:12 Troponin T 0.063 ng/mL (0.00-0.029) H 03/12/22 10:12 Troponin T 0.065 ng/mL (0.00-0.029) H 03/12/22 10:12 NT-Pro-B Natriuret Pep 50550 pg/mL (0-900) H 03/12/22 10:12 Total Protein 6.5 g/dL (6.3-8.2) 03/12/22 10:12 Albumin 4.1 g/dL (3.9-5) 03/12/22 10:12 Albumin/Globulin Ratio 1.7 % 03/12/22 10:12 Triglycerides 80 mg/dL (2-149) 03/12/22 10:12 Cholesterol 116 mg/dL (50-199) 03/12/22 10:12 LDL Cholesterol Direct 74 mg/dL (50-130) 03/12/22 10:12 HDL Cholesterol 31 mg/dL (40-59) L 03/12/22 10:12 Cholesterol/HDL Ratio 3.74 % 03/12/22 10:12 Lipase 37 units/L (13-60) 03/12/22 10:12 Lipase 38 units/L (13-60) 03/12/22 10:12 Urine Color Yellow (Yellow) 03/12/22 12:56 Urine Turbidity Clear (Clear) 03/12/22 12:56 Specific [place] (Man) 1.008 (1.003-1.030) 03/12/22 12:56 Ur Protein (Man) Negative mg/dL (Negative) 03/12/22 12:56 Ur Ketones (Man) Negative (Negative) 03/12/22 12:56 Ur Nitrite (Man) Negative (Negative) 03/12/22 12:56 Urine Bilirubin (Man) Negative (Negative) 03/12/22 12:56 Urine Ictotest Not Reportable 03/12/22 12:56 Leukocyte Esterase (Man) Negative (Negative) 03/12/22 12:56 Urine WBC (Auto) < 1.0 /HPF (0.0-6.0) 03/12/22 12:56 Urine RBC (Auto) 1.0 /HPF (0.0-6.0) 03/12/22 12:56 Urine RBC (Manual) 1+ (Negative) 03/12/22 12:56 Hyaline Casts 1 /LPF 03/12/22 12:56 Urine Mucus Few /HPF 03/12/22 12:56 Urine Opiates Screen Negative 03/12/22 12:56 Urine Methadone Screen Negative 03/12/22 12:56 Ur Barbiturates Screen Negative 03/12/22 12:56 Ur Phencyclidine Scrn Negative 03/12/22 12:56 Ur Amphetamines Screen Negative 03/12/22 12:56 U Benzodiazepines Scrn Negative 03/12/22 12:56 Urine Cocaine Screen Negative 03/12/22 12:56 U Marijuana (THC) Screen Negative 03/12/22 12:56 Drugs of Abuse Note Disclamer 03/12/22 12:56 [facility]/IV: Voiding Method Urinal Active Medications - Current Medications Current Medications: Generic Name Dose Route Start Last Admin Trade Name Freq PRN Reason Stop Dose Admin Acetaminophen 650 mg 03/12/22 13:04 Acetaminophen 325 Mg Tab PO Q4H PRN Pain MILD(1-3)/Fever >100.5/NÚÑEZ Albuterol 2.5 mg 03/12/22 13:04 Albuterol 2.5 Mg/3 Ml Nebu IH Q4HRT PRN Shortness Of Breath Allopurinol 100 mg 03/13/22 10:00 Allopurinol 100 Mg Tab PO QDAY SHAKEEL Amiodarone HCl 200 mg 03/13/22 10:00 Amiodarone 200 Mg Tab PO DAILY SHAKEEL Amlodipine Besylate 10 mg 03/13/22 10:00 Amlodipine 10 Mg Tab PO DAILY SHAKEEL Atorvastatin Calcium 80 mg 03/12/22 22:00 03/12/22 21:12 Atorvastatin 40 Mg Tab PO 80 mg QHS SHAKEEL Administration Carvedilol 25 mg 03/12/22 22:00 03/12/22 21:15 Carvedilol 25 Mg Tab PO 25 mg BID SHAKEEL Administration Clonidine HCl 0.1 mg 03/12/22 15:00 03/12/22 15:40 Clonidine Tts 0.1 Mg/24 Hr Patch TD Not Given Sa SHAKEEL Furosemide 40 mg 03/12/22 18:00 03/13/22 06:51 Furosemide 40 Mg/4 Ml Inj IV 40 mg BID@0600,1800 SHAKEEL Administration Hydralazine HCl 25 mg 03/12/22 22:00 03/12/22 21:13 Hydralazine 25 Mg Tab PO 25 mg BID SHAKEEL Administration Morphine Sulfate 2 mg 03/12/22 13:04 Morphine 4 Mg/1 Ml Inj IV Q8H PRN Pain , Severe (7-10) Ondansetron HCl 4 mg 03/12/22 13:04 Ondansetron 4 Mg/2 Ml Inj IV Q8H PRN Nausea And Vomiting Oxycodone/Acetaminophen 1 tab 03/12/22 13:04 Oxycodone /Acetaminophen 5-325mg Tab PO Q6H PRN Pain, Moderate (4-6) Potassium Chloride 10 meq 03/13/22 10:00 Potassium Chloride Er 10 Meq Tab PO QDAY SHAKEEL Sodium Chloride 10 ml 03/12/22 22:00 03/12/22 21:15 Sodium Chloride 0.9% 10 Ml Flush Syringe IV 10 ml BID SHAKEEL Administration Sodium Chloride 10 ml 03/12/22 13:04 Sodium Chloride 0.9% 10 Ml Flush Syringe IV PRN PRN LINE FLUSH Spironolactone 25 mg 03/13/22 10:00 Spironolactone 25 Mg Tab PO QDAY SHAKEEL
[2022-03-13] MEDS ORDERED: POTASSIUM CHLORIDE ER 10 MEQ TAB PO SCH (10:00)
[2022-03-13] MEDS ORDERED: allopurinoL 300 MG TAB PO SCH (10:00)
[2022-03-13] MEDS ORDERED: amLODIPine 10 MG TAB PO SCH (10:00)
[2022-03-13] MEDS ORDERED: WARFARIN 2.5 MG TAB PO SCH (10:00)
[2022-03-13] MEDS: SPIRONOLACTONE 25 MG TAB PO SCH (10:47)
[2022-03-13] MEDS: carvediloL 25 MG TAB PO SCH ×2 (10:47→21:49)
[2022-03-13] MEDS: hydrALAZINE 25 MG TAB PO SCH ×2 (10:47→21:47)
[2022-03-13] MEDS: allopurinoL 100 MG TAB PO SCH (10:48)
[2022-03-13] MEDS: AMIODARONE 200 MG TAB PO SCH (10:48)
[2022-03-13] MEDS: MORPHINE 4 MG/1 ML INJ IV PRN (22:58)
[2022-03-13] MEDS ORDERED: ALPRAZolam 0.25 MG TAB PO ONE (23:48)
[2022-03-13] MEDS: MAGNESIUM HYDROXIDE (MOM) ORAL LIQD UDC PO PRN (23:52)
[2022-03-14] MEDS: FUROSEMIDE 40 MG/4 ML INJ IV SCH ×2 (05:52→19:17)
[2022-03-14 06:00] LABS: Calcium 8.6 mg/dL (8.4-10.2)
[2022-03-14 06:01] LABS: INR 6.47 (0.87-1.13)
--- NOTE | 2022-03-14 07:56 | Progress Note ---
Assessment and Plan Assessment and plan: #Acute on chronic HFrEF (heart failure with reduced ejection fraction) #Status post biventricular ICD ([facility]) -Echocardiogram from 01/2022 hospitalization reviewed, LVEF 10 to 15% -Strict I's and O, monitor urine output every shift, daily weight, afterload reduction, blood pressure control, IV lasix 40mg BID, coreg, aldactone -if patient does not clinically improve, will consult Cardiology #Acute respiratory failure with hypoxemia -CXR shows mild pulmonary edema, small bilateral pleural effusions -at baseline patient has no home O2 requirement -currently on 2LNC, will wean as tolerated -likely secondary to CHF exacerbation -continue pulse oximetry -home O2 evaluation prior to discharge #Acute kidney injury vs CKD -SCr 2.4, same as when the patient was discharged in December -patient had MARCIO secondary to ATN -patient to follow up with Nephrology outpatient and is aware -will consult Nephrology if creatinine worsens -avoid nephrotoxins and renal dose medications #history of atrial fibrillation #supratheraputic INR -continue amiodarone and warfarin -INR 6; warfarin management by Pharmacy -goal INR 2-3 #Type II Diabetes Mellitus -diet controlled -will monitor through BMP, glucose controlled at this time -no intervention at this time #Hypertension -continue amlodipine and hydralazine #Coronary artery disease #Hyperlipidemia -continue statin #History of stroke -continue statin and AC #Elevated troponin -chronic, likely related to kidney injury vs CHF #Metabolic acidosis-resolved -likely secondary to kidney disease #Advanced care planning -Disease education data, care plan discussed, diagnoses discussed, prognosis dis cussed, patient is full code. Patient acknowledges understanding and agreement with care plan, +30 minutes. History Interval history: No acute events overnight. Patient reports sleeping well overnight with the BiPAP. He is still using supplemental O2. He has filled the urinal 1.5 times this morning. He has no complaints this time. Hospitalist Physical - Physical exam Narrative exam: GENERAL: Well-developed well-nourished. In no acute distress. HEENT: NC in place at 2LPM NECK: Supple. CHEST/LUNGS: CTAB on supplemental O2. HEART/CARDIOVASCULAR: RRR. No murmur, rubs or gallops appreciated. ABDOMEN: +BS. NT/ND. NEURO: No focal motor deficit. Follows all commands. MUSCULOSKELETAL: No joint effusion EXTREMITIES: No cyanosis, clubbing. Bilateral lower extremity pitting edema to the gillespie. L leg ulcer clean without drainage. PSYCH: Cooperative. - Constitutional Vitals: Temp Pulse Resp BP Pulse Ox 97.9 F 50 L 18 94/47 100 03/14/22 04:06 03/14/22 04:06 03/14/22 04:06 03/14/22 04:06 03/14/22 04:06 General appearance: Present: mild distress HEART Score - HEART Score Troponin: Troponin T 0.063 ng/mL (0.00-0.029) H 03/12/22 10:12 Troponin T 0.065 ng/mL (0.00-0.029) H 03/12/22 10:12 Results - Labs CBC & Chem 7: 03/13/22 05:52 03/14/22 04:58 Labs: Laboratory Last Values WBC 6.1 K/mm3 (4.5-11.0) 03/13/22 05:52 RBC 4.01 M/mm3 (3.65-5.03) 03/13/22 05:52 Hgb 10.9 gm/dl (11.8-15.2) L 03/13/22 05:52 Hct 34.3 % (35.5-45.6) L 03/13/22 05:52 MCV 86 fl (84-94) 03/13/22 05:52 MCH 27 pg (28-32) L 03/13/22 05:52 MCHC 32 % (32-34) 03/13/22 05:52 RDW 18.8 % (13.2-15.2) H 03/13/22 05:52 Plt Count 177 K/mm3 (140-440) 03/13/22 05:52 Lymph % (Auto) 8.6 % (13.4-35.0) L 03/13/22 05:52 [place] % (Auto) 8.4 % (0.0-7.3) H 03/13/22 05:52 Eos % (Auto) 0.4 % (0.0-4.3) 03/13/22 05:52 Baso % (Auto) 0.4 % (0.0-1.8) 03/13/22 05:52 Lymph # (Auto) 0.5 K/mm3 (1.2-5.4) L 03/13/22 05:52 [place] # (Auto) 0.5 K/mm3 (0.0-0.8) 03/13/22 05:52 Eos # (Auto) 0.0 K/mm3 (0.0-0.4) 03/13/22 05:52 Baso # (Auto) 0.0 K/mm3 (0.0-0.1) 03/13/22 05:52 Seg Neutrophils % 82.2 % (40.0-70.0) H 03/13/22 05:52 Seg Neutrophils # 5.0 K/mm3 (1.8-7.7) 03/13/22 05:52 PT 66.1 Sec. (12.2-14.9) H 03/14/22 04:58 INR 6.47 (0.87-1.13) H* 03/14/22 04:58 ABG pH 7.394 pH Units (7.350-7.450) 03/12/22 10:05 ABG pCO2 38.8 mm Hg 03/12/22 10:05 ABG pO2 90.9 mm Hg (80.0-90.0) H 03/12/22 10:05 ABG HCO3 23.2 mmol/L (20.0-26.0) 03/12/22 10:05 ABG O2 Saturation 97.1 % (95.0-99.0) 03/12/22 10:05 ABG O2 Content 14.9 (0.0-44) 03/12/22 10:05 ABG Base Excess -1.5 mmol/L (-2.0-3.0) 03/12/22 10:05 ABG Hemoglobin 11.1 gm/dl (14.0-18.0) L 03/12/22 10:05 ABG Carboxyhemoglobin 2.0 % (0.0-5.0) 03/12/22 10:05 ABG Methemoglobin 0.5 % (0.0-1.5) 03/12/22 10:05 Oxyhemoglobin 94.7 % (95.0-99.0) L 03/12/22 10:05 FiO2 36 % 03/12/22 10:05 Sodium 146 mmol/L (137-145) H 03/14/22 04:58 Potassium 4.5 mmol/L (3.6-5.0) 03/14/22 04:58 Chloride 105.4 mmol/L (98-107) 03/14/22 04:58 Carbon Dioxide 29 mmol/L (22-30) 03/14/22 04:58 Anion Gap 16 mmol/L 03/14/22 04:58 BUN 52 mg/dL (9-20) H 03/14/22 04:58 Creatinine 2.4 mg/dL (0.8-1.3) H 03/14/22 04:58 Estimated GFR 34 ml/min 03/14/22 04:58 BUN/Creatinine Ratio 22 % 03/14/22 04:58 Glucose 100 mg/dL (75-100) 03/14/22 04:58 POC Glucose 137 mg/dL (70-105) H 03/12/22 19:59 Calcium 8.6 mg/dL (8.4-10.2) 03/14/22 04:58 Magnesium 1.70 mg/dL (1.7-2.3) 03/12/22 10:12 Total Bilirubin 1.90 mg/dL (0.1-1.2) H 03/12/22 10:12 AST 34 units/L (5-40) 03/12/22 10:12 ALT 36 units/L (7-56) 03/12/22 10:12 Alkaline Phosphatase 60 units/L (35-129) 03/12/22 10:12 Total Creatine Kinase 107 units/L (55-170) 03/12/22 10:12 CK-MB (CK-2) 3.7 ng/mL (0.0-4.0) 03/12/22 10:12 CK-MB (CK-2) Rel Index 3.4 (0-4) 03/12/22 10:12 Troponin T 0.063 ng/mL (0.00-0.029) H 03/12/22 10:12 Troponin T 0.065 ng/mL (0.00-0.029) H 03/12/22 10:12 NT-Pro-B Natriuret Pep 94636 pg/mL (0-900) H 03/12/22 10:12 Total Protein 6.5 g/dL (6.3-8.2) 03/12/22 10:12 Albumin 4.1 g/dL (3.9-5) 03/12/22 10:12 Albumin/Globulin Ratio 1.7 % 03/12/22 10:12 Triglycerides 80 mg/dL (2-149) 03/12/22 10:12 Cholesterol 116 mg/dL (50-199) 03/12/22 10:12 LDL Cholesterol Direct 74 mg/dL (50-130) 03/12/22 10:12 HDL Cholesterol 31 mg/dL (40-59) L 03/12/22 10:12 Cholesterol/HDL Ratio 3.74 % 03/12/22 10:12 Lipase 37 units/L (13-60) 03/12/22 10:12 Lipase 38 units/L (13-60) 03/12/22 10:12 Urine Color Yellow (Yellow) 03/12/22 12:56 Urine Turbidity Clear (Clear) 03/12/22 12:56 Specific [place] (Man) 1.008 (1.003-1.030) 03/12/22 12:56 Ur Protein (Man) Negative mg/dL (Negative) 03/12/22 12:56 Ur Ketones (Man) Negative (Negative) 03/12/22 12:56 Ur Nitrite (Man) Negative (Negative) 03/12/22 12:56 Urine Bilirubin (Man) Negative (Negative) 03/12/22 12:56 Urine Ictotest Not Reportable 03/12/22 12:56 Leukocyte Esterase (Man) Negative (Negative) 03/12/22 12:56 Urine WBC (Auto) < 1.0 /HPF (0.0-6.0) 03/12/22 12:56 Urine RBC (Auto) 1.0 /HPF (0.0-6.0) 03/12/22 12:56 Urine RBC (Manual) 1+ (Negative) 03/12/22 12:56 Hyaline Casts 1 /LPF 03/12/22 12:56 Urine Mucus Few /HPF 03/12/22 12:56 Urine Opiates Screen Negative 03/12/22 12:56 Urine Methadone Screen Negative 03/12/22 12:56 Ur Barbiturates Screen Negative 03/12/22 12:56 Ur Phencyclidine Scrn Negative 03/12/22 12:56 Ur Amphetamines Screen Negative 03/12/22 12:56 U Benzodiazepines Scrn Negative 03/12/22 12:56 Urine Cocaine Screen Negative 03/12/22 12:56 U Marijuana (THC) Screen Negative 03/12/22 12:56 Drugs of Abuse Note Disclamer 03/12/22 12:56 B[place]amante/IV: Voiding Method Urinal Active Medications - Current Medications Current Medications: Generic Name Dose Route Start Last Admin Trade Name Freq PRN Reason Stop Dose Admin Acetaminophen 650 mg 03/12/22 13:04 Acetaminophen 325 Mg Tab PO Q4H PRN Pain MILD(1-3)/Fever >100.5/NÚÑEZ Albuterol 2.5 mg 03/12/22 13:04 03/13/22 16:43 Albuterol 2.5 Mg/3 Ml Nebu IH 2.5 mg Q4HRT PRN Administration Shortness Of Breath Allopurinol 100 mg 03/13/22 10:00 03/13/22 10:48 Allopurinol 100 Mg Tab PO 100 mg QDAY SHAKEEL Administration Amiodarone HCl 200 mg 03/13/22 10:00 03/13/22 10:48 Amiodarone 200 Mg Tab PO 200 mg DAILY SHAKEEL Administration Atorvastatin Calcium 80 mg 03/12/22 22:00 03/13/22 21:48 Atorvastatin 40 Mg Tab PO 80 mg QHS SHAKEEL Administration Carvedilol 25 mg 03/12/22 22:00 03/13/22 21:49 Carvedilol 25 Mg Tab PO 25 mg BID SHAKEEL Administration Furosemide 40 mg 03/12/22 18:00 03/14/22 05:52 Furosemide 40 Mg/4 Ml Inj IV 40 mg BID@0600,1800 SHAKEEL Administration Hydralazine HCl 25 mg 03/12/22 22:00 03/13/22 21:47 Hydralazine 25 Mg Tab PO 25 mg BID SHAKEEL Administration Isosorbide Mononitrate 30 mg 03/14/22 10:00 Isosorbide Mononitrate Er 30 Mg Tab PO QDAY SHAKEEL Magnesium Hydroxide 30 ml 03/13/22 22:50 03/13/22 23:52 Magnesium Hydroxide (Mom) Oral Liqd Udc PO 30 ml QDAY PRN Administration Constipation Morphine Sulfate 2 mg 03/12/22 13:04 03/13/22 22:58 Morphine 4 Mg/1 Ml Inj IV 2 mg Q8H PRN Administration Pain , Severe (7-10) Ondansetron HCl 4 mg 03/12/22 13:04 Ondansetron 4 Mg/2 Ml Inj IV Q8H PRN Nausea And Vomiting Oxycodone/Acetaminophen 1 tab 03/12/22 13:04 Oxycodone /Acetaminophen 5-325mg Tab PO Q6H PRN Pain, Moderate (4-6) Sodium Chloride 10 ml 03/12/22 22:00 03/13/22 23:01 Sodium Chloride 0.9% 10 Ml Flush Syringe IV 10 ml BID SHAKEEL Administration Sodium Chloride 10 ml 03/12/22 13:04 Sodium Chloride 0.9% 10 Ml Flush Syringe IV PRN PRN LINE FLUSH Spironolactone 25 mg 03/13/22 10:00 03/13/22 10:47 Spironolactone 25 Mg Tab PO 25 mg QDAY SHAKEEL Administration Nutrition/Malnutrition Assess - Dietary Evaluation Nutrition/Malnutrition Findings: Nutrition Notes Start: 03/13/22 14:29 Freq: Status: Active Protocol: Document 03/13/22 14:29 PB (Rec: 03/13/22 14:59 PB [id number]) Nutrition Notes Need for Assessment generated from: mortgage loan specialist Initial or Follow up Assessment Current Diagnosis Acute Kidney Injury,CKD(stage I-IV),Coronary Artery Disease, Diabetes,Hypertension, Respiratory Failure,Stroke, Hyperlipidemia Other Pertinent Diagnosis HFrEF, Atrial Fibrilation, Cardio-Renal Syndrome, Cardiomegaly s/p AICD, .. Current Diet Cardiac -Renal- Diet (since D 03/12). Labs/Tests 03/13: BUN 45, Crea 2.4. Pertinent Medications 03/13: Nutritionally unremarkable. 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 No reports available on Pt's PO intake of meals at the time , will assess at F/U. I will prescribe Renal Modification to current diet, to support Pt's MARCIO/CKD condition. Pt is on Nasal Cannula, O2 saturation @ 97%, according to Physical Assessment History notes. Pt presents Bilateral-LE Edema 2+, and states having gain 10 lb of body weight during the last week, according to Physical Assessment History notes. Pt shows a L-Ankle Stasis Ulcer as sign of concer for skin risk at the time, according to Physical Assessment History notes. Percent of energy/protein needs met: Prescribed Cardiac-Renal- Diet provides for energy/protein needs (2,230 Kcal/85 g) during LOS. Burn Absent Trauma Absent GI Symptoms None Food Allergy No Skin Integrity/Comment L-Ankle Stasis Ulcer. Minimum of two criteria No Fluid Accumulation Moderate to Severe (severe) Reduced Chief Port Director Strength N/A (non-severe) Protein-Calorie Malnutrition N\A #1 Nutrition Diagnosis Altered nutrition-related laboratory values Etiology Cardio-Renal Syndrome, MARCIO/CKD . As Evidenced by Signs and Symptoms 03/13: BUN 45, Crea 2.4. Is patient on ventilator? No Is Patient Ambulatory and/or Out of Bed Yes REE-([place]. Jeor-ambulatory/OOB) [ 2371.200 [id number]] Kcal/Kg value to use for calculation 23 Approximate Energy Requirements Using 2210 kcal/Kg Calculation Used for Recommendations Kcal/kg Additional Notes Protein: 0.8-1.2 g/Kg ABW; 77- 115 g/day. Fluids: 1 ml/Kcal, or as per MD. Nutrition Intervention Change Diet Order: Restrict current diet to Renal modification, continue as tolerated. Goal #1 Help reach and maintain acceptable chemistry lab values during LOS. Goal #2 Adjust the dietary intervention to better serve Pt's needs and clinical conditions during LOS. Follow-Up By: 03/18/22 Additional Comments Continue monitoring food tolerance, %PO intake of meals , and BM.
[2022-03-14] MEDS: hydrALAZINE 25 MG TAB PO SCH ×2 (10:53→21:07)
[2022-03-14] MEDS: allopurinoL 100 MG TAB PO SCH (10:53)
[2022-03-14] MEDS: carvediloL 25 MG TAB PO SCH ×2 (10:53→22:12)
[2022-03-14] MEDS: AMIODARONE 200 MG TAB PO SCH (10:53)
[2022-03-14] MEDS: SPIRONOLACTONE 25 MG TAB PO SCH (10:53)
[2022-03-14 12:18] LABS: INR 5.87 (0.87-1.13)
--- NOTE | 2022-03-14 16:48 | Electrocardiograph Report ---
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
[2022-03-15] MEDS: MORPHINE 4 MG/1 ML INJ IV PRN (04:11)
[2022-03-15] MEDS: FUROSEMIDE 40 MG/4 ML INJ IV SCH ×2 (06:04→20:47)
[2022-03-15 10:05] LABS: INR 4.03 (0.87-1.13)
--- NOTE | 2022-03-15 10:07 | Progress Note ---
Assessment and Plan Assessment and plan: #Acute on chronic HFrEF (heart failure with reduced ejection fraction) #Status post biventricular ICD ([facility]) -Echocardiogram from 01/2022 hospitalization reviewed, LVEF 10 to 15% -Strict I's and O, monitor urine output every shift, daily weight, afterload reduction, blood pressure control, IV lasix 40mg BID, coreg, aldactone -if patient does not clinically improve, will consult Cardiology #Acute respiratory failure with hypoxemia -CXR shows mild pulmonary edema, small bilateral pleural effusions -at baseline patient has no home O2 requirement -currently on 2LNC, will wean as tolerated -likely secondary to CHF exacerbation -continue pulse oximetry -home O2 evaluation prior to discharge #Acute kidney injury vs CKD -SCr 2.4, same as when the patient was discharged in December -patient had MARCIO secondary to ATN -patient to follow up with Nephrology outpatient and is aware -will consult Nephrology if creatinine worsens -avoid nephrotoxins and renal dose medications #history of atrial fibrillation #supratheraputic INR -continue amiodarone and warfarin -INR 6; warfarin management by Pharmacy -goal INR 2-3 #Type II Diabetes Mellitus -diet controlled -will monitor through BMP, glucose controlled at this time -no intervention at this time #Hypertension -continue amlodipine and hydralazine #Coronary artery disease #Hyperlipidemia -continue statin #History of stroke -continue statin and AC #Elevated troponin -chronic, likely related to kidney injury vs CHF #Metabolic acidosis-resolved -likely secondary to kidney disease #Advanced care planning -Disease education data, care plan discussed, diagnoses discussed, prognosis di scussed, patient is full code. Patient acknowledges understanding and agreement with care plan, +30 minutes. Closely monitor the patient and adjust management as needed Plan of care reviewed with the patient and his nurse History Interval history: I have seen and examined the patient at the bedside this morning Patient's chart and medications reviewed Patient has no new complaints No overnight events reported by the nursing Patient's INR is trending down today 4.03 Vital signs noted Hospitalist Physical - Constitutional Vitals: Temp Pulse Resp BP Pulse Ox 97.4 F L 56 L 18 122/69 98 03/15/22 03:31 03/15/22 03:31 03/15/22 03:31 03/15/22 03:31 03/15/22 08:51 General appearance: Present: mild distress, well-nourished - EENT Eyes: Present: PERRL, EOM intact - Neck Neck: Present: supple, normal ROM - Respiratory Respiratory effort: normal Respiratory: bilateral: diminished, negative: rales, rhonchi, wheezing - Cardiovascular Rhythm: regular Heart Sounds: Present: S1 & S2 - Extremities Extremities: no ischemia, No edema - Abdominal General gastrointestinal: soft, non-tender, non-distended, normal bowel sounds - Integumentary Integumentary: Present: clear, warm - Psychiatric Psychiatric: appropriate mood/affect, cooperative - Neurologic Neurologic: moves all extremities HEART Score - HEART Score Troponin: Troponin T 0.063 ng/mL (0.00-0.029) H 03/12/22 10:12 Troponin T 0.065 ng/mL (0.00-0.029) H 03/12/22 10:12 Results - Labs CBC & Chem 7: 03/13/22 05:52 03/14/22 04:58 Labs: Laboratory Last Values WBC 6.1 K/mm3 (4.5-11.0) 03/13/22 05:52 RBC 4.01 M/mm3 (3.65-5.03) 03/13/22 05:52 Hgb 10.9 gm/dl (11.8-15.2) L 03/13/22 05:52 Hct 34.3 % (35.5-45.6) L 03/13/22 05:52 MCV 86 fl (84-94) 03/13/22 05:52 MCH 27 pg (28-32) L 03/13/22 05:52 MCHC 32 % (32-34) 03/13/22 05:52 RDW 18.8 % (13.2-15.2) H 03/13/22 05:52 Plt Count 177 K/mm3 (140-440) 03/13/22 05:52 Lymph % (Auto) 8.6 % (13.4-35.0) L 03/13/22 05:52 [place] % (Auto) 8.4 % (0.0-7.3) H 03/13/22 05:52 Eos % (Auto) 0.4 % (0.0-4.3) 03/13/22 05:52 Baso % (Auto) 0.4 % (0.0-1.8) 03/13/22 05:52 Lymph # (Auto) 0.5 K/mm3 (1.2-5.4) L 03/13/22 05:52 [place] # (Auto) 0.5 K/mm3 (0.0-0.8) 03/13/22 05:52 Eos # (Auto) 0.0 K/mm3 (0.0-0.4) 03/13/22 05:52 Baso # (Auto) 0.0 K/mm3 (0.0-0.1) 03/13/22 05:52 Seg Neutrophils % 82.2 % (40.0-70.0) H 03/13/22 05:52 Seg Neutrophils # 5.0 K/mm3 (1.8-7.7) 03/13/22 05:52 PT 61.0 Sec. (12.2-14.9) H 03/14/22 10:59 INR 5.87 (0.87-1.13) H* 03/14/22 10:59 ABG pH 7.394 pH Units (7.350-7.450) 03/12/22 10:05 ABG pCO2 38.8 mm Hg 03/12/22 10:05 ABG pO2 90.9 mm Hg (80.0-90.0) H 03/12/22 10:05 ABG HCO3 23.2 mmol/L (20.0-26.0) 03/12/22 10:05 ABG O2 Saturation 97.1 % (95.0-99.0) 03/12/22 10:05 ABG O2 Content 14.9 (0.0-44) 03/12/22 10:05 ABG Base Excess -1.5 mmol/L (-2.0-3.0) 03/12/22 10:05 ABG Hemoglobin 11.1 gm/dl (14.0-18.0) L 03/12/22 10:05 ABG Carboxyhemoglobin 2.0 % (0.0-5.0) 03/12/22 10:05 ABG Methemoglobin 0.5 % (0.0-1.5) 03/12/22 10:05 Oxyhemoglobin 94.7 % (95.0-99.0) L 03/12/22 10:05 FiO2 36 % 03/12/22 10:05 Sodium 146 mmol/L (137-145) H 03/14/22 04:58 Potassium 4.5 mmol/L (3.6-5.0) 03/14/22 04:58 Chloride 105.4 mmol/L (98-107) 03/14/22 04:58 Carbon Dioxide 29 mmol/L (22-30) 03/14/22 04:58 Anion Gap 16 mmol/L 03/14/22 04:58 BUN 52 mg/dL (9-20) H 03/14/22 04:58 Creatinine 2.4 mg/dL (0.8-1.3) H 03/14/22 04:58 Estimated GFR 34 ml/min 03/14/22 04:58 BUN/Creatinine Ratio 22 % 03/14/22 04:58 Glucose 100 mg/dL (75-100) 03/14/22 04:58 POC Glucose 119 mg/dL (70-105) H 03/14/22 20:11 Calcium 8.6 mg/dL (8.4-10.2) 03/14/22 04:58 Magnesium 1.70 mg/dL (1.7-2.3) 03/12/22 10:12 Total Bilirubin 1.90 mg/dL (0.1-1.2) H 03/12/22 10:12 AST 34 units/L (5-40) 03/12/22 10:12 ALT 36 units/L (7-56) 03/12/22 10:12 Alkaline Phosphatase 60 units/L (35-129) 03/12/22 10:12 Total Creatine Kinase 107 units/L (55-170) 03/12/22 10:12 CK-MB (CK-2) 3.7 ng/mL (0.0-4.0) 03/12/22 10:12 CK-MB (CK-2) Rel Index 3.4 (0-4) 03/12/22 10:12 Troponin T 0.063 ng/mL (0.00-0.029) H 03/12/22 10:12 Troponin T 0.065 ng/mL (0.00-0.029) H 03/12/22 10:12 NT-Pro-B Natriuret Pep 80344 pg/mL (0-900) H 03/12/22 10:12 Total Protein 6.5 g/dL (6.3-8.2) 03/12/22 10:12 Albumin 4.1 g/dL (3.9-5) 03/12/22 10:12 Albumin/Globulin Ratio 1.7 % 03/12/22 10:12 Triglycerides 80 mg/dL (2-149) 03/12/22 10:12 Cholesterol 116 mg/dL (50-199) 03/12/22 10:12 LDL Cholesterol Direct 74 mg/dL (50-130) 03/12/22 10:12 HDL Cholesterol 31 mg/dL (40-59) L 03/12/22 10:12 Cholesterol/HDL Ratio 3.74 % 03/12/22 10:12 Lipase 37 units/L (13-60) 03/12/22 10:12 Lipase 38 units/L (13-60) 03/12/22 10:12 Urine Color Yellow (Yellow) 03/12/22 12:56 Urine Turbidity Clear (Clear) 03/12/22 12:56 Specific [place] (Man) 1.008 (1.003-1.030) 03/12/22 12:56 Ur Protein (Man) Negative mg/dL (Negative) 03/12/22 12:56 Ur Ketones (Man) Negative (Negative) 03/12/22 12:56 Ur Nitrite (Man) Negative (Negative) 03/12/22 12:56 Urine Bilirubin (Man) Negative (Negative) 03/12/22 12:56 Urine Ictotest Not Reportable 03/12/22 12:56 Leukocyte Esterase (Man) Negative (Negative) 03/12/22 12:56 Urine WBC (Auto) < 1.0 /HPF (0.0-6.0) 03/12/22 12:56 Urine RBC (Auto) 1.0 /HPF (0.0-6.0) 03/12/22 12:56 Urine RBC (Manual) 1+ (Negative) 03/12/22 12:56 Hyaline Casts 1 /LPF 03/12/22 12:56 Urine Mucus Few /HPF 03/12/22 12:56 Urine Opiates Screen Negative 03/12/22 12:56 Urine Methadone Screen Negative 03/12/22 12:56 Ur Barbiturates Screen Negative 03/12/22 12:56 Ur Phencyclidine Scrn Negative 03/12/22 12:56 Ur Amphetamines Screen Negative 03/12/22 12:56 U Benzodiazepines Scrn Negative 03/12/22 12:56 Urine Cocaine Screen Negative 03/12/22 12:56 U Marijuana (THC) Screen Negative 03/12/22 12:56 Drugs of Abuse Note Disclamer 03/12/22 12:56 [place]/IV: Voiding Method Urinal Active Medications - Current Medications Current Medications: Generic Name Dose Route Start Last Admin Trade Name Freq PRN Reason Stop Dose Admin Acetaminophen 650 mg 03/12/22 13:04 Acetaminophen 325 Mg Tab PO Q4H PRN Pain MILD(1-3)/Fever >100.5/NÚÑEZ Albuterol 2.5 mg 03/12/22 13:04 03/13/22 16:43 Albuterol 2.5 Mg/3 Ml Nebu IH 2.5 mg Q4HRT PRN Administration Shortness Of Breath Allopurinol 100 mg 03/13/22 10:00 03/14/22 10:53 Allopurinol 100 Mg Tab PO 100 mg QDAY SHAKEEL Administration Amiodarone HCl 200 mg 03/13/22 10:00 03/14/22 10:53 Amiodarone 200 Mg Tab PO 200 mg DAILY SHAKEEL Administration Atorvastatin Calcium 80 mg 03/12/22 22:00 03/14/22 21:07 Atorvastatin 40 Mg Tab PO 80 mg QHS SHAKEEL Administration Carvedilol 25 mg 03/12/22 22:00 03/14/22 22:12 Carvedilol 25 Mg Tab PO 25 mg BID SHAKEEL Administration Furosemide 40 mg 03/12/22 18:00 03/15/22 06:04 Furosemide 40 Mg/4 Ml Inj IV 40 mg BID@0600,1800 SHAKEEL Administration Hydralazine HCl 25 mg 03/12/22 22:00 03/14/22 21:07 Hydralazine 25 Mg Tab PO 25 mg BID SHAKEEL Administration Isosorbide Mononitrate 30 mg 03/14/22 10:00 03/14/22 10:53 Isosorbide Mononitrate Er 30 Mg Tab PO 30 mg QDAY SHAKEEL Administration Magnesium Hydroxide 30 ml 03/13/22 22:50 03/13/22 23:52 Magnesium Hydroxide (Mom) Oral Liqd Udc PO 30 ml QDAY PRN Administration Constipation Morphine Sulfate 2 mg 03/12/22 13:04 03/15/22 04:11 Morphine 4 Mg/1 Ml Inj IV 2 mg Q8H PRN Administration Pain , Severe (7-10) Ondansetron HCl 4 mg 03/12/22 13:04 Ondansetron 4 Mg/2 Ml Inj IV Q8H PRN Nausea And Vomiting Oxycodone/Acetaminophen 1 tab 03/12/22 13:04 Oxycodone /Acetaminophen 5-325mg Tab PO Q6H PRN Pain, Moderate (4-6) Sodium Chloride 10 ml 03/12/22 22:00 03/14/22 21:08 Sodium Chloride 0.9% 10 Ml Flush Syringe IV 10 ml BID SHAKEEL Administration Sodium Chloride 10 ml 03/12/22 13:04 Sodium Chloride 0.9% 10 Ml Flush Syringe IV PRN PRN LINE FLUSH Spironolactone 25 mg 03/13/22 10:00 03/14/22 10:53 Spironolactone 25 Mg Tab PO 25 mg QDAY SHAKEEL Administration Nutrition/Malnutrition Assess - Dietary Evaluation Nutrition/Malnutrition Findings: Nutrition Notes Start: 03/13/22 14:29 Freq: Status: Active Protocol: Document 03/13/22 14:29 PB (Rec: 03/13/22 14:59 PB [id number]) Nutrition Notes Need for Assessment 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 Current Diet Cardiac -Renal- Diet (since D 03/12). Labs/Tests 03/13: BUN 45, Crea 2.4. Pertinent Medications 03/13: Nutritionally unremarkable. Height 6 ft Weight 96.1 kg Mobile Body Weight (kg) 80.90 BMI 28.7 Intake Prior to Admission Good Weight change and time frame Pt denies having loss body weight LOSS PREVENTION LEAD. 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 No reports available on Pt's PO intake of meals at the time , will assess at F/U. I will prescribe Renal Modification to current diet, to support Pt's MARCIO/CKD condition. Pt is on Nasal Cannula, O2 saturation @ 97%, according to Physical Assessment History notes. Pt presents Bilateral-LE Edema 2+, and states having gain 10 lb of body weight during the last week, according to Physical Assessment History notes. Pt shows a L-Ankle Stasis Ulcer as sign of concer for skin risk at the time, according to Physical Assessment History notes. Percent of energy/protein needs met: Prescribed Cardiac-Renal- Diet provides for energy/protein needs (2,230 Kcal/85 g) during LOS. Burn Absent Trauma Absent GI Symptoms None Food Allergy No Skin Integrity/Comment L-Ankle Stasis Ulcer. Minimum of two criteria No Fluid Accumulation Moderate to Severe (severe) Reduced [employer] Strength N/A (non-severe) Protein-Calorie Malnutrition N\A #1 Nutrition Diagnosis Altered nutrition-related laboratory values Etiology Cardio-Renal Syndrome, MARCIO/CKD . As Evidenced by Signs and Symptoms 03/13: BUN 45, Crea 2.4. Is patient on ventilator? No Is Patient Ambulatory and/or Out of Bed Yes REE-([place]-St. Jeor-ambulatory/OOB) [ 2371.200 NUTR.[id number]] Kcal/Kg value to use for calculation 23 Approximate Energy Requirements Using 2210 kcal/Kg Calculation Used for Recommendations Kcal/kg Additional Notes Protein: 0.8-1.2 g/Kg ABW; 77- 115 g/day. Fluids: 1 ml/Kcal, or as per MD. Nutrition Intervention Change Diet Order: Restrict current diet to Renal modification, continue as tolerated. Goal #1 Help reach and maintain acceptable chemistry lab values during LOS. Goal #2 Adjust the dietary intervention to better serve Pt's needs and clinical conditions during LOS. Follow-Up By: 03/18/22 Additional Comments Continue monitoring food tolerance, %PO intake of meals , and BM.
[2022-03-15] MEDS: carvediloL 25 MG TAB PO SCH ×2 (11:25→22:53)
[2022-03-15] MEDS: allopurinoL 100 MG TAB PO SCH (11:25)
[2022-03-15] MEDS: AMIODARONE 200 MG TAB PO SCH (11:25)
[2022-03-15] MEDS: hydrALAZINE 25 MG TAB PO SCH ×2 (11:25→22:52)
[2022-03-15] MEDS: SPIRONOLACTONE 25 MG TAB PO SCH (11:25)
--- NOTE | 2022-03-15 19:52 | Progress Note ---
Assessment and Plan Assessment and plan: #Acute on chronic HFrEF (heart failure with reduced ejection fraction) #Status post biventricular ICD ([facility]) -Echocardiogram from 01/2022 hospitalization reviewed, LVEF 10 to 15% -Strict I's and O, monitor urine output every shift, daily weight, afterload reduction, blood pressure control, IV lasix 40mg BID, coreg, aldactone -if patient does not clinically improve, will consult Cardiology #Acute respiratory failure with hypoxemia -CXR shows mild pulmonary edema, small bilateral pleural effusions -at baseline patient has no home O2 requirement -currently on 2LNC, will wean as tolerated -likely secondary to CHF exacerbation -continue pulse oximetry -home O2 evaluation prior to discharge #Acute kidney injury vs CKD -SCr 2.4, same as when the patient was discharged in December -patient had MARCIO secondary to ATN -patient to follow up with Nephrology outpatient and is aware -will consult Nephrology if creatinine worsens -avoid nephrotoxins and renal dose medications #history of atrial fibrillation #supratheraputic INR 3.28 Hold warfarin, closely monitor INR today 3.28 Pharmacy managing Coumadin and INR levels -goal INR 2-3 #Type II Diabetes Mellitus -diet controlled -will monitor through BMP, glucose controlled at this time -no intervention at this time #Hypertension -continue amlodipine and hydralazine #Coronary artery disease #Hyperlipidemia -continue statin #History of stroke -continue statin and AC #Elevated troponin -chronic, likely related to kidney injury vs CHF #Metabolic acidosis-resolved -likely secondary to kidney disease #Advanced care planning -Disease education data, care plan discussed, diagnoses discussed, prognosis discussed, patient is full code. Patient acknowledges understanding and agreement with care plan, +30 minutes. Closely monitor the patient and adjust management as needed Plan of care reviewed with the patient and his nurse 03/16/2022; Will check home oxygen evaluation/walk test, currently patient is on 2 L nasal cannula oxygen And CPAP at home, home O2 evaluation and set up if needed at discharge History Interval history: I have seen and examined the patient at the bedside this morning Patient's chart and medications reviewed Patient feels slightly better No new overnight events reported by the nursing Patient is on BiPAP at night And 2 L nasal cannula during the daytime Vital signs reviewed Hospitalist Physical - Constitutional Vitals: Temp Pulse Resp BP Pulse Ox 97.4 F L 56 L 18 122/69 96 03/15/22 03:31 03/15/22 10:00 03/15/22 03:31 03/15/22 03:31 03/15/22 10:00 General appearance: Present: mild distress, well-nourished - EENT Eyes: Present: PERRL, EOM intact - Neck Neck: Present: supple, normal ROM - Respiratory Respiratory effort: normal Respiratory: bilateral: diminished, rhonchi, negative: rales, wheezing - Cardiovascular Rhythm: regular Heart Sounds: Present: S1 & S2 - Extremities Extremities: no ischemia, No edema - Abdominal General gastrointestinal: soft, non-tender, non-distended, normal bowel sounds - Integumentary Integumentary: Present: clear, warm - Psychiatric Psychiatric: appropriate mood/affect, cooperative - Neurologic Neurologic: moves all extremities HEART Score - HEART Score Troponin: Troponin T 0.063 ng/mL (0.00-0.029) H 03/12/22 10:12 Troponin T 0.065 ng/mL (0.00-0.029) H 03/12/22 10:12 Results - Labs CBC & Chem 7: 03/16/22 04:57 03/16/22 04:57 Labs: Laboratory Last Values WBC 6.1 K/mm3 (4.5-11.0) 03/13/22 05:52 RBC 4.01 M/mm3 (3.65-5.03) 03/13/22 05:52 Hgb 10.9 gm/dl (11.8-15.2) L 03/13/22 05:52 Hct 34.3 % (35.5-45.6) L 03/13/22 05:52 MCV 86 fl (84-94) 03/13/22 05:52 MCH 27 pg (28-32) L 03/13/22 05:52 MCHC 32 % (32-34) 03/13/22 05:52 RDW 18.8 % (13.2-15.2) H 03/13/22 05:52 Plt Count 177 K/mm3 (140-440) 03/13/22 05:52 Lymph % (Auto) 8.6 % (13.4-35.0) L 03/13/22 05:52 [place] % (Auto) 8.4 % (0.0-7.3) H 03/13/22 05:52 Eos % (Auto) 0.4 % (0.0-4.3) 03/13/22 05:52 Baso % (Auto) 0.4 % (0.0-1.8) 03/13/22 05:52 Lymph # (Auto) 0.5 K/mm3 (1.2-5.4) L 03/13/22 05:52 [place] # (Auto) 0.5 K/mm3 (0.0-0.8) 03/13/22 05:52 Eos # (Auto) 0.0 K/mm3 (0.0-0.4) 03/13/22 05:52 Baso # (Auto) 0.0 K/mm3 (0.0-0.1) 03/13/22 05:52 Seg Neutrophils % 82.2 % (40.0-70.0) H 03/13/22 05:52 Seg Neutrophils # 5.0 K/mm3 (1.8-7.7) 03/13/22 05:52 PT 44.8 Sec. (12.2-14.9) H 03/15/22 08:44 INR 4.03 (0.87-1.13) H 03/15/22 08:44 ABG pH 7.394 pH Units (7.350-7.450) 03/12/22 10:05 ABG pCO2 38.8 mm Hg 03/12/22 10:05 ABG pO2 90.9 mm Hg (80.0-90.0) H 03/12/22 10:05 ABG HCO3 23.2 mmol/L (20.0-26.0) 03/12/22 10:05 ABG O2 Saturation 97.1 % (95.0-99.0) 03/12/22 10:05 ABG O2 Content 14.9 (0.0-44) 03/12/22 10:05 ABG Base Excess -1.5 mmol/L (-2.0-3.0) 03/12/22 10:05 ABG Hemoglobin 11.1 gm/dl (14.0-18.0) L 03/12/22 10:05 ABG Carboxyhemoglobin 2.0 % (0.0-5.0) 03/12/22 10:05 ABG Methemoglobin 0.5 % (0.0-1.5) 03/12/22 10:05 Oxyhemoglobin 94.7 % (95.0-99.0) L 03/12/22 10:05 FiO2 36 % 03/12/22 10:05 Sodium 146 mmol/L (137-145) H 03/14/22 04:58 Potassium 4.5 mmol/L (3.6-5.0) 03/14/22 04:58 Chloride 105.4 mmol/L (98-107) 03/14/22 04:58 Carbon Dioxide 29 mmol/L (22-30) 03/14/22 04:58 Anion Gap 16 mmol/L 03/14/22 04:58 BUN 52 mg/dL (9-20) H 03/14/22 04:58 Creatinine 2.4 mg/dL (0.8-1.3) H 03/14/22 04:58 Estimated GFR 34 ml/min 03/14/22 04:58 BUN/Creatinine Ratio 22 % 03/14/22 04:58 Glucose 100 mg/dL (75-100) 03/14/22 04:58 POC Glucose 129 mg/dL (70-105) H 03/15/22 15:22 Calcium 8.6 mg/dL (8.4-10.2) 03/14/22 04:58 Magnesium 1.70 mg/dL (1.7-2.3) 03/12/22 10:12 Total Bilirubin 1.90 mg/dL (0.1-1.2) H 03/12/22 10:12 AST 34 units/L (5-40) 03/12/22 10:12 ALT 36 units/L (7-56) 03/12/22 10:12 Alkaline Phosphatase 60 units/L (35-129) 03/12/22 10:12 Total Creatine Kinase 107 units/L (55-170) 03/12/22 10:12 CK-MB (CK-2) 3.7 ng/mL (0.0-4.0) 03/12/22 10:12 CK-MB (CK-2) Rel Index 3.4 (0-4) 03/12/22 10:12 Troponin T 0.063 ng/mL (0.00-0.029) H 03/12/22 10:12 Troponin T 0.065 ng/mL (0.00-0.029) H 03/12/22 10:12 NT-Pro-B Natriuret Pep 57238 pg/mL (0-900) H 03/12/22 10:12 Total Protein 6.5 g/dL (6.3-8.2) 03/12/22 10:12 Albumin 4.1 g/dL (3.9-5) 03/12/22 10:12 Albumin/Globulin Ratio 1.7 % 03/12/22 10:12 Triglycerides 80 mg/dL (2-149) 03/12/22 10:12 Cholesterol 116 mg/dL (50-199) 03/12/22 10:12 LDL Cholesterol Direct 74 mg/dL (50-130) 03/12/22 10:12 HDL Cholesterol 31 mg/dL (40-59) L 03/12/22 10:12 Cholesterol/HDL Ratio 3.74 % 03/12/22 10:12 Lipase 37 units/L (13-60) 03/12/22 10:12 Lipase 38 units/L (13-60) 03/12/22 10:12 Urine Color Yellow (Yellow) 03/12/22 12:56 Urine Turbidity Clear (Clear) 03/12/22 12:56 Specific [place] (Man) 1.008 (1.003-1.030) 03/12/22 12:56 Ur Protein (Man) Negative mg/dL (Negative) 03/12/22 12:56 Ur Ketones (Man) Negative (Negative) 03/12/22 12:56 Ur Nitrite (Man) Negative (Negative) 03/12/22 12:56 Urine Bilirubin (Man) Negative (Negative) 03/12/22 12:56 Urine Ictotest Not Reportable 03/12/22 12:56 Leukocyte Esterase (Man) Negative (Negative) 03/12/22 12:56 Urine WBC (Auto) < 1.0 /HPF (0.0-6.0) 03/12/22 12:56 Urine RBC (Auto) 1.0 /HPF (0.0-6.0) 03/12/22 12:56 Urine RBC (Manual) 1+ (Negative) 03/12/22 12:56 Hyaline Casts 1 /LPF 03/12/22 12:56 Urine Mucus Few /HPF 03/12/22 12:56 Urine Opiates Screen Negative 03/12/22 12:56 Urine Methadone Screen Negative 03/12/22 12:56 Ur Barbiturates Screen Negative 03/12/22 12:56 Ur Phencyclidine Scrn Negative 03/12/22 12:56 Ur Amphetamines Screen Negative 03/12/22 12:56 U Benzodiazepines Scrn Negative 03/12/22 12:56 Urine Cocaine Screen Negative 03/12/22 12:56 U Marijuana (THC) Screen Negative 03/12/22 12:56 Drugs of Abuse Note Disclamer 03/12/22 12:56 Bustamante/IV: Voiding Method Urinal Active Medications - Current Medications Current Medications: Generic Name Dose Route Start Last Admin Trade Name Freq PRN Reason Stop Dose Admin Acetaminophen 650 mg 03/12/22 13:04 Acetaminophen 325 Mg Tab PO Q4H PRN Pain MILD(1-3)/Fever >100.5/NÚÑEZ Albuterol 2.5 mg 03/12/22 13:04 03/13/22 16:43 Albuterol 2.5 Mg/3 Ml Nebu IH 2.5 mg Q4HRT PRN Administration Shortness Of Breath Allopurinol 100 mg 03/13/22 10:00 03/15/22 11:25 Allopurinol 100 Mg Tab PO 100 mg QDAY SHAKEEL Administration Amiodarone HCl 200 mg 03/13/22 10:00 03/15/22 11:25 Amiodarone 200 Mg Tab PO 200 mg DAILY SHAKEEL Administration Atorvastatin Calcium 80 mg 03/12/22 22:00 03/14/22 21:07 Atorvastatin 40 Mg Tab PO 80 mg QHS SHAKEEL Administration Carvedilol 25 mg 03/12/22 22:00 03/15/22 11:25 Carvedilol 25 Mg Tab PO 25 mg BID SHAKEEL Administration Furosemide 40 mg 03/12/22 18:00 03/15/22 06:04 Furosemide 40 Mg/4 Ml Inj IV 40 mg BID@0600,1800 SHAKEEL Administration Hydralazine HCl 25 mg 03/12/22 22:00 03/15/22 11:25 Hydralazine 25 Mg Tab PO 25 mg BID SHAKEEL Administration Isosorbide Mononitrate 30 mg 03/14/22 10:00 03/15/22 11:25 Isosorbide Mononitrate Er 30 Mg Tab PO 30 mg QDAY SHAKEEL Administration Magnesium Hydroxide 30 ml 03/13/22 22:50 03/13/22 23:52 Magnesium Hydroxide (Mom) Oral Liqd Udc PO 30 ml QDAY PRN Administration Constipation Morphine Sulfate 2 mg 03/12/22 13:04 03/15/22 04:11 Morphine 4 Mg/1 Ml Inj IV 2 mg Q8H PRN Administration Pain , Severe (7-10) Ondansetron HCl 4 mg 03/12/22 13:04 Ondansetron 4 Mg/2 Ml Inj IV Q8H PRN Nausea And Vomiting Oxycodone/Acetaminophen 1 tab 03/12/22 13:04 Oxycodone /Acetaminophen 5-325mg Tab PO Q6H PRN Pain, Moderate (4-6) Sodium Chloride 10 ml 03/12/22 22:00 03/15/22 11:25 Sodium Chloride 0.9% 10 Ml Flush Syringe IV 10 ml BID SHAKEEL Administration Sodium Chloride 10 ml 03/12/22 13:04 Sodium Chloride 0.9% 10 Ml Flush Syringe IV PRN PRN LINE FLUSH Spironolactone 25 mg 03/13/22 10:00 03/15/22 11:25 Spironolactone 25 Mg Tab PO 25 mg QDAY SHAKEEL Administration Nutrition/Malnutrition Assess - Dietary Evaluation Nutrition/Malnutrition Findings: Nutrition Notes Start: 03/13/22 14:29 Freq: Status: Active Protocol: Document 03/13/22 14:29 PB (Rec: 03/13/22 14:59 PB [email or web address]) Nutrition Notes Need for 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 Current Diet Cardiac -Renal- Diet (since D 03/12). Labs/Tests 03/13: BUN 45, Crea 2.4. Pertinent Medications 03/13: Nutritionally unremarkable. 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 No reports available on Pt's PO intake of meals at the time , will assess at F/U. I will prescribe Renal Modification to current diet, to support Pt's MARCIO/CKD condition. Pt is on Nasal Cannula, O2 saturation @ 97%, according to Physical Assessment History notes. Pt presents Bilateral-LE Edema 2+, and states having gain 10 lb of body weight during the last week, according to Physical Assessment History notes. Pt shows a L-Ankle Stasis Ulcer as sign of concer for skin risk at the time, according to Physical Assessment History notes. Percent of energy/protein needs met: Prescribed Cardiac-Renal- Diet provides for energy/protein needs (2,230 Kcal/85 g) during LOS. Burn Absent Trauma Absent GI Symptoms None Food Allergy No Skin Integrity/Comment L-Ankle Stasis Ulcer. Minimum of two criteria No Fluid Accumulation Moderate to Severe (severe) Reduced Permit Technician Strength N/A (non-severe) Protein-Calorie Malnutrition N\A #1 Nutrition Diagnosis Altered nutrition-related laboratory values Etiology Cardio-Renal Syndrome, MARCIO/CKD . As Evidenced by Signs and Symptoms 03/13: BUN 45, Crea 2.4. Is patient on ventilator? No Is Patient Ambulatory and/or Out of Bed Yes REE-([facility] [place]-ambulatory/OOB) [ 2371.200 NUTR.MSJOOB] Kcal/Kg value to use for calculation 23 Approximate Energy Requirements Using 2210 kcal/Kg Calculation Used for Recommendations Kcal/kg Additional Notes Protein: 0.8-1.2 g/Kg ABW; 77- 115 g/day. Fluids: 1 ml/Kcal, or as per MD. Nutrition Intervention Change Diet Order: Restrict current diet to Renal modification, continue as tolerated. Goal #1 Help reach and maintain acceptable chemistry lab values during LOS. Goal #2 Adjust the dietary intervention to better serve Pt's needs and clinical conditions during LOS. Follow-Up By: 03/18/22 Additional Comments Continue monitoring food tolerance, %PO intake of meals , and BM.
[2022-03-15] MEDS: MAGNESIUM HYDROXIDE (MOM) ORAL LIQD UDC PO PRN (21:58)
[2022-03-16 05:25] LABS: Hematocrit 30.5 % (35.5-45.6)
[2022-03-16 05:33] LABS: INR 3.28 (0.87-1.13)
[2022-03-16 05:48] LABS: Calcium 8.4 mg/dL (8.4-10.2)
[2022-03-16] MEDS: FUROSEMIDE 40 MG/4 ML INJ IV SCH ×2 (06:21→18:45)
[2022-03-16] MEDS: carvediloL 25 MG TAB PO SCH ×3 (11:30→21:27)
[2022-03-16] MEDS: AMIODARONE 200 MG TAB PO SCH (11:30)
[2022-03-16] MEDS: allopurinoL 100 MG TAB PO SCH (11:30)
[2022-03-16] MEDS: hydrALAZINE 25 MG TAB PO SCH ×2 (11:32→21:26)
[2022-03-16] MEDS: SPIRONOLACTONE 25 MG TAB PO SCH (11:34)
[2022-03-17 06:05] LABS: INR 2.26 (0.87-1.13)
[2022-03-17] MEDS: FUROSEMIDE 40 MG/4 ML INJ IV SCH (06:17)
--- NOTE | 2022-03-17 10:05 | Progress Note ---
Assessment and Plan Assessment and plan: o2 eval w/o o2. at rest 98% on ra/ during amb-95% on ra amb w/o2-100%. Hospitalist Physical - Constitutional Vitals: Temp Pulse Resp BP Pulse Ox 98.4 F 55 L 18 127/71 100 03/17/22 07:23 03/17/22 07:23 03/17/22 07:23 03/17/22 07:23 03/17/22 07:23 General appearance: Present: mild distress, well-nourished HEART Score - HEART Score Troponin: Troponin T 0.063 ng/mL (0.00-0.029) H 03/12/22 10:12 Troponin T 0.065 ng/mL (0.00-0.029) H 03/12/22 10:12 Results - Labs CBC & Chem 7: 03/16/22 04:57 03/16/22 04:57 Labs: Laboratory Last Values WBC 6.1 K/mm3 (4.5-11.0) 03/13/22 05:52 RBC 4.01 M/mm3 (3.65-5.03) 03/13/22 05:52 Hgb 10.0 gm/dl (11.8-15.2) L 03/16/22 04:57 Hct 30.5 % (35.5-45.6) L 03/16/22 04:57 MCV 86 fl (84-94) 03/13/22 05:52 MCH 27 pg (28-32) L 03/13/22 05:52 MCHC 32 % (32-34) 03/13/22 05:52 RDW 18.8 % (13.2-15.2) H 03/13/22 05:52 Plt Count 177 K/mm3 (140-440) 03/13/22 05:52 Lymph % (Auto) 8.6 % (13.4-35.0) L 03/13/22 05:52 [place] % (Auto) 8.4 % (0.0-7.3) H 03/13/22 05:52 Eos % (Auto) 0.4 % (0.0-4.3) 03/13/22 05:52 Baso % (Auto) 0.4 % (0.0-1.8) 03/13/22 05:52 Lymph # (Auto) 0.5 K/mm3 (1.2-5.4) L 03/13/22 05:52 [place] # (Auto) 0.5 K/mm3 (0.0-0.8) 03/13/22 05:52 Eos # (Auto) 0.0 K/mm3 (0.0-0.4) 03/13/22 05:52 Baso # (Auto) 0.0 K/mm3 (0.0-0.1) 03/13/22 05:52 Seg Neutrophils % 82.2 % (40.0-70.0) H 03/13/22 05:52 Seg Neutrophils # 5.0 K/mm3 (1.8-7.7) 03/13/22 05:52 PT 27.9 Sec. (12.2-14.9) H 03/17/22 05:18 INR 2.26 (0.87-1.13) H 03/17/22 05:18 ABG pH 7.394 pH Units (7.350-7.450) 03/12/22 10:05 ABG pCO2 38.8 mm Hg 03/12/22 10:05 ABG pO2 90.9 mm Hg (80.0-90.0) H 03/12/22 10:05 ABG HCO3 23.2 mmol/L (20.0-26.0) 03/12/22 10:05 ABG O2 Saturation 97.1 % (95.0-99.0) 03/12/22 10:05 ABG O2 Content 14.9 (0.0-44) 03/12/22 10:05 ABG Base Excess -1.5 mmol/L (-2.0-3.0) 03/12/22 10:05 ABG Hemoglobin 11.1 gm/dl (14.0-18.0) L 03/12/22 10:05 ABG Carboxyhemoglobin 2.0 % (0.0-5.0) 03/12/22 10:05 ABG Methemoglobin 0.5 % (0.0-1.5) 03/12/22 10:05 Oxyhemoglobin 94.7 % (95.0-99.0) L 03/12/22 10:05 FiO2 36 % 03/12/22 10:05 Sodium 144 mmol/L (137-145) 03/16/22 04:57 Potassium 4.0 mmol/L (3.6-5.0) 03/16/22 04:57 Chloride 103.4 mmol/L (98-107) 03/16/22 04:57 Carbon Dioxide 32 mmol/L (22-30) H 03/16/22 04:57 Anion Gap 13 mmol/L 03/16/22 04:57 BUN 37 mg/dL (9-20) H 03/16/22 04:57 Creatinine 2.0 mg/dL (0.8-1.3) H 03/16/22 04:57 Estimated GFR 42 ml/min 03/16/22 04:57 BUN/Creatinine Ratio 19 % 03/16/22 04:57 Glucose 90 mg/dL (75-100) 03/16/22 04:57 POC Glucose 96 mg/dL (70-105) 03/17/22 07:21 Calcium 8.4 mg/dL (8.4-10.2) 03/16/22 04:57 Magnesium 2.10 mg/dL (1.7-2.3) 03/16/22 04:57 Total Bilirubin 1.90 mg/dL (0.1-1.2) H 03/12/22 10:12 AST 34 units/L (5-40) 03/12/22 10:12 ALT 36 units/L (7-56) 03/12/22 10:12 Alkaline Phosphatase 60 units/L (35-129) 03/12/22 10:12 Total Creatine Kinase 107 units/L (55-170) 03/12/22 10:12 CK-MB (CK-2) 3.7 ng/mL (0.0-4.0) 03/12/22 10:12 CK-MB (CK-2) Rel Index 3.4 (0-4) 03/12/22 10:12 Troponin T 0.063 ng/mL (0.00-0.029) H 03/12/22 10:12 Troponin T 0.065 ng/mL (0.00-0.029) H 03/12/22 10:12 NT-Pro-B Natriuret Pep 77517 pg/mL (0-900) H 03/12/22 10:12 Total Protein 6.5 g/dL (6.3-8.2) 03/12/22 10:12 Albumin 4.1 g/dL (3.9-5) 03/12/22 10:12 Albumin/Globulin Ratio 1.7 % 03/12/22 10:12 Triglycerides 80 mg/dL (2-149) 03/12/22 10:12 Cholesterol 116 mg/dL (50-199) 03/12/22 10:12 LDL Cholesterol Direct 74 mg/dL (50-130) 03/12/22 10:12 HDL Cholesterol 31 mg/dL (40-59) L 03/12/22 10:12 Cholesterol/HDL Ratio 3.74 % 03/12/22 10:12 Lipase 37 units/L (13-60) 03/12/22 10:12 Lipase 38 units/L (13-60) 03/12/22 10:12 Urine Color Yellow (Yellow) 03/12/22 12:56 Urine Turbidity Clear (Clear) 03/12/22 12:56 Specific [place] (Man) 1.008 (1.003-1.030) 03/12/22 12:56 Ur Protein (Man) Negative mg/dL (Negative) 03/12/22 12:56 Ur Ketones (Man) Negative (Negative) 03/12/22 12:56 Ur Nitrite (Man) Negative (Negative) 03/12/22 12:56 Urine Bilirubin (Man) Negative (Negative) 03/12/22 12:56 Urine Ictotest Not Reportable 03/12/22 12:56 Leukocyte Esterase (Man) Negative (Negative) 03/12/22 12:56 Urine WBC (Auto) < 1.0 /HPF (0.0-6.0) 03/12/22 12:56 Urine RBC (Auto) 1.0 /HPF (0.0-6.0) 03/12/22 12:56 Urine RBC (Manual) 1+ (Negative) 03/12/22 12:56 Hyaline Casts 1 /LPF 03/12/22 12:56 Urine Mucus Few /HPF 03/12/22 12:56 Urine Opiates Screen Negative 03/12/22 12:56 Urine Methadone Screen Negative 03/12/22 12:56 Ur Barbiturates Screen Negative 03/12/22 12:56 Ur Phencyclidine Scrn Negative 03/12/22 12:56 Ur Amphetamines Screen Negative 03/12/22 12:56 U Benzodiazepines Scrn Negative 03/12/22 12:56 Urine Cocaine Screen Negative 03/12/22 12:56 U Marijuana (THC) Screen Negative 03/12/22 12:56 Drugs of Abuse Note Disclamer 03/12/22 12:56 Bustamante/IV: Voiding Method Urinal Active Medications - Current Medications Current Medications: Generic Name Dose Route Start Last Admin Trade Name Freq PRN Reason Stop Dose Admin Acetaminophen 650 mg 03/12/22 13:04 Acetaminophen 325 Mg Tab PO Q4H PRN Pain MILD(1-3)/Fever >100.5/NÚÑEZ Albuterol 2.5 mg 03/12/22 13:04 03/13/22 16:43 Albuterol 2.5 Mg/3 Ml Nebu IH 2.5 mg Q4HRT PRN Administration Shortness Of Breath Allopurinol 100 mg 03/13/22 10:00 03/16/22 11:30 Allopurinol 100 Mg Tab PO 100 mg QDAY SHAKEEL Administration Amiodarone HCl 200 mg 03/13/22 10:00 03/16/22 11:30 Amiodarone 200 Mg Tab PO 200 mg DAILY SHAKEEL Administration Atorvastatin Calcium 80 mg 03/12/22 22:00 03/16/22 21:29 Atorvastatin 40 Mg Tab PO 80 mg QHS SHAKEEL Administration Carvedilol 25 mg 03/12/22 22:00 03/16/22 21:27 Carvedilol 25 Mg Tab PO Not Given BID SHAKEEL Furosemide 40 mg 03/12/22 18:00 03/17/22 06:17 Furosemide 40 Mg/4 Ml Inj IV 40 mg BID@0600,1800 SHAKEEL Administration Hydralazine HCl 25 mg 03/12/22 22:00 03/16/22 21:26 Hydralazine 25 Mg Tab PO Not Given BID SHAKEEL Isosorbide Mononitrate 30 mg 03/14/22 10:00 03/16/22 11:29 Isosorbide Mononitrate Er 30 Mg Tab PO 30 mg QDAY SHAKEEL Administration Magnesium Hydroxide 30 ml 03/13/22 22:50 03/15/22 21:58 Magnesium Hydroxide (Mom) Oral Liqd Udc PO 30 ml QDAY PRN Administration Constipation Morphine Sulfate 2 mg 03/12/22 13:04 03/15/22 04:11 Morphine 4 Mg/1 Ml Inj IV 2 mg Q8H PRN Administration Pain , Severe (7-10) Ondansetron HCl 4 mg 03/12/22 13:04 Ondansetron 4 Mg/2 Ml Inj IV Q8H PRN Nausea And Vomiting Oxycodone/Acetaminophen 1 tab 03/12/22 13:04 Oxycodone /Acetaminophen 5-325mg Tab PO Q6H PRN Pain, Moderate (4-6) Sodium Chloride 10 ml 03/12/22 22:00 03/16/22 21:28 Sodium Chloride 0.9% 10 Ml Flush Syringe IV 10 ml BID SHAKEEL Administration Sodium Chloride 10 ml 03/12/22 13:04 03/17/22 06:19 Sodium Chloride 0.9% 10 Ml Flush Syringe IV 10 ml PRN PRN Administration LINE FLUSH Spironolactone 25 mg 03/13/22 10:00 03/16/22 11:34 Spironolactone 25 Mg Tab PO Not Given QDAY SHAKEEL Warfarin Sodium 2.5 mg 03/17/22 17:00 Warfarin 2.5 Mg Tab PO 03/18/22 16:59 DAILY@1700 NR Nutrition/Malnutrition Assess - Dietary Evaluation Nutrition/Malnutrition Findings: Nutrition Notes Start: 03/13/22 14:29 Freq: Status: Active Protocol: Document 03/13/22 14:29 PB (Rec: 03/13/22 14:59 PB [id number]) Nutrition Notes 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 Current Diet Cardiac -Renal- Diet (since D 03/12). Labs/Tests 03/13: BUN 45, Crea 2.4. Pertinent Medications 03/13: Nutritionally unremarkable. 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 No reports available on Pt's PO intake of meals at the time , will assess at F/U. I will prescribe Renal Modification to current diet, to support Pt's MARCIO/CKD condition. Pt is on Nasal Cannula, O2 saturation @ 97%, according to Physical Assessment History notes. Pt presents Bilateral-LE Edema 2+, and states having gain 10 lb of body weight during the last week, according to Physical Assessment History notes. Pt shows a L-Ankle Stasis Ulcer as sign of concer for skin risk at the time, according to Physical Assessment History notes. Percent of energy/protein needs met: Prescribed Cardiac-Renal- Diet provides for energy/protein needs (2,230 Kcal/85 g) during LOS. Burn Absent Trauma Absent GI Symptoms None Food Allergy No Skin Integrity/Comment L-Ankle Stasis Ulcer. Minimum of two criteria No Fluid Accumulation Moderate to Severe (severe) Reduced Mobile Equipment Servicer Strength N/A (non-severe) Protein-Calorie Malnutrition N\A #1 Nutrition Diagnosis Altered nutrition-related laboratory values Etiology Cardio-Renal Syndrome, MARCIO/CKD . As Evidenced by Signs and Symptoms 03/13: BUN 45, Crea 2.4. Is patient on ventilator? No Is Patient Ambulatory and/or Out of Bed Yes REE-([facility]-ambulatory/OOB) [ 2371.200 NUTR.MSJOOB] Kcal/Kg value to use for calculation 23 Approximate Energy Requirements Using 2210 kcal/Kg Calculation Used for Recommendations Kcal/kg Additional Notes Protein: 0.8-1.2 g/Kg ABW; 77- 115 g/day. Fluids: 1 ml/Kcal, or as per MD. Nutrition Intervention Change Diet Order: Restrict current diet to Renal modification, continue as tolerated. Goal #1 Help reach and maintain acceptable chemistry lab values during LOS. Goal #2 Adjust the dietary intervention to better serve Pt's needs and clinical conditions during LOS. Follow-Up By: 03/18/22 Additional Comments Continue monitoring food tolerance, %PO intake of meals , and BM.
[2022-03-17 11:57] VITALS: BP 128/69
--- NOTE | 2022-03-17 13:55 | Discharge Summary ---
Providers - Providers Date of Admission: 03/12/22 13:05 Attending physician: BANDAR MYERS Primary care physician: BAKESHOP CLEANER Hospitalization Condition: Fair Hospital course: o2 eval w/o o2. at rest 98% on ra/ during amb-95% on ra amb w/o2-100%. #Acute on chronic HFrEF (heart failure with reduced ejection fraction) #Status post biventricular ICD ([facility]) -Echocardiogram from 01/2022 hospitalization reviewed, LVEF 10 to 15% -Strict I's and O, monitor urine output every shift, daily weight, afterload reduction, blood pressure control, IV lasix 40mg BID, coreg, aldactone -if patient does not clinically improve, will consult Cardiology #Acute respiratory failure with hypoxemia -CXR shows mild pulmonary edema, small bilateral pleural effusions -at baseline patient has no home O2 requirement -currently on 2LNC, will wean as tolerated -likely secondary to CHF exacerbation -continue pulse oximetry -home O2 evaluation prior to discharge #Acute kidney injury vs CKD -SCr 2.4, same as when the patient was discharged in December -patient had MARCIO secondary to ATN -patient to follow up with Nephrology outpatient and is aware -will consult Nephrology if creatinine worsens -avoid nephrotoxins and renal dose medications #history of atrial fibrillation #supratheraputic INR 3.28 Hold warfarin, closely monitor INR today 3.28 Pharmacy managing Coumadin and INR levels -goal INR 2-3 #Type II Diabetes Mellitus -diet controlled -will monitor through BMP, glucose controlled at this time -no intervention at this time #Hypertension -continue amlodipine and hydralazine #Coronary artery disease #Hyperlipidemia -continue statin #History of stroke -continue statin and AC #Elevated troponin -chronic, likely related to kidney injury vs CHF #Metabolic acidosis-resolved -likely secondary to kidney disease #Advanced care planning -Disease education data, care plan discussed, diagnoses discussed, prognosis discussed, patient is full code. Patient acknowledges understanding and agreement with care plan, +30 minutes. Closely monitor the patient and adjust management as needed Plan of care reviewed with the patient and his nurse 03/16/2022; Will check home oxygen evaluation/walk test, currently patient is on 2 L nasal cannula oxygen And CPAP at home, home O2 evaluation and set up if needed at discharge Disposition: 30 STILL A PATIENT Final Discharge Diagnosis (Prints w/discharge instructions): Acute on chronic systolic congestive heart failure. Status post biventricular ICD [facility]. Acute respiratory failure with hypoxia present on admission. Acute kidney injury on chronic kidney disease. History of atrial fibrillation. Supratherapeutic INR/resolved. Type 2 diabetes mellitus. Hypertension. Coronary artery disease. Hyperlipidemia. History of CVA/stroke. Elevated troponin. Metabolic acidosis resolved Time spent for discharge: 35 minutes Exam - Constitutional Vitals: Temp Pulse Resp BP Pulse Ox 98.5 F 57 L 18 128/69 100 03/17/22 10:45 03/17/22 10:45 03/17/22 10:45 03/17/22 10:45 03/17/22 10:45 Plan Follow up with: PRIMARY CARE, [Primary Care Provider] - 3-5 Days Forms: Warfarin Discharge Instruction Prescriptions: Spironolactone [Aldactone] 25 mg PO QDAY 30 Days #30 tablet hydrALAZINE [Apresoline TAB] 25 mg PO BID 30 Days #60 tablet Amiodarone [Cordarone 200 MG TAB] 200 mg PO DAILY 30 Days #30 tablet carvediloL [Coreg] 25 mg PO BID 30 Days #60 tablet ISOSORBIDE MONOnitrate [Imdur ER] 30 mg PO QDAY 30 Days #30 tablet Furosemide [Lasix TAB] 40 mg PO 0600,1800 30 Days #60 tablet AtorvaSTATin [Lipitor] 80 mg PO QHS #30 tablet oxyCODONE /ACETAMINOPHEN [Percocet 5/325 mg] 1 tab PO BID PRN #10 tablet PRN Reason: Pain, Moderate (4-6) allopurinoL [Zyloprim] 300 mg PO QDAY #30
[2022-03-17] MEDS: carvediloL 25 MG TAB PO SCH (14:03)
[2022-03-17] MEDS: allopurinoL 100 MG TAB PO SCH (14:03)
[2022-03-17] MEDS: SPIRONOLACTONE 25 MG TAB PO SCH (14:04)
[2022-03-17] MEDS: AMIODARONE 200 MG TAB PO SCH (14:04)
[2022-03-17] MEDS: hydrALAZINE 25 MG TAB PO SCH (14:05)
[2022-03-17] MEDS ORDERED: WARFARIN 2.5 MG TAB PO NR (17:00)
== END 2022-03-17 16:50 | disposition home or self-care (01) | DRG 291 ==
LOC: ED 09:16 → 4A 13:05
PROVIDERS: ADMIT Internal Medicine; ATTEND Internal Medicine
PROC: 4A033R1 Measurement of Arterial Saturation, Peripheral, Percutaneous Approach (ICD-10-PCS; principal; 2022-03-12)
PROC: 5A09557 Assistance with Respiratory Ventilation, Greater than 96 Consecutive Hours, Continuous Positive Airway Pressure (ICD-10-PCS; 2022-03-12)
DX: I13.0 Hypertensive heart and chronic kidney disease with heart failure and stage 1 through stage 4 chronic kidney disease, or unspecified chronic kidney disease (principal); I50.23 Acute on chronic systolic (congestive) heart failure; J96.01 Acute respiratory failure with hypoxia; N17.0 Acute kidney failure with tubular necrosis; E87.2 Acidosis; I42.9 Cardiomyopathy, unspecified; M10.9 Gout, unspecified; E11.40 Type 2 diabetes mellitus with diabetic neuropathy, unspecified; N18.30 Chronic kidney disease, stage 3 unspecified; I48.91 Unspecified atrial fibrillation; E11.22 Type 2 diabetes mellitus with diabetic chronic kidney disease; E88.81 Metabolic syndrome and other insulin resistance; Z86.73 Personal history of transient ischemic attack (TIA), and cerebral infarction without residual deficits; Z83.3 Family history of diabetes mellitus; Z95.810 Presence of automatic (implantable) cardiac defibrillator; Z82.49 Family history of ischemic heart disease and other diseases of the circulatory system; Z88.6 Allergy status to analgesic agent; Z79.01 Long term (current) use of anticoagulants; Z79.84 Long term (current) use of oral hypoglycemic drugs; Z85.46 Personal history of malignant neoplasm of prostate
CPT/HCPCS: 36415; 71045; 80048; 80053; 80061; 80307; 81001; 82550; 82553; 82803; 82962; 83690; 83735; 83880; 84484; 85014; 85018; 85025; 85610; 93005; 93306; 94640; 94644; 94660; 94760; G0378; C8929; J1940; J2270